=== PATIENT | female | born 1950 | race Caucasian/White ===

== ENCOUNTER 2016-03-06 11:57 | Inpatient (IN) | payer MEDICARE, OTHER ==
[~2016-03-06] VITALS: Ht 170.2 cm; Wt 127.2 kg
[~2016-03-06 11:57] MED LIST: APIX5TAB PO; ATOR40TA68 PO; BUME2TAB18 PO; DILT240C79 PO; GLIM4TAB PO; LACTINEX PO; LANT3I SC; LEVO750T25 PO; METF-388 PO; NOVO3I SC; SPIR25TA76 PO
[2016-03-06] MEDS ORDERED: LEVOFLOXACIN 500MG/D5W (PMX) 100 ML IV STA (12:11)
[2016-03-06] MEDS ORDERED: DILTIAZEM 25 MG INJ IV ONE (12:30)
[2016-03-06] MEDS ORDERED: ENOXAPARIN 100 MG/ML SYG SC ONE (12:30)
--- NOTE | 2016-03-06 12:40 | RADRPT ---
PROCEDURE: Chest x-ray CLINICAL INDICATION: Chest pain TECHNIQUE: Chest single view COMPARISON: 03/02/2016 FINDINGS: There is stable moderate cardiomegaly and atherosclerotic aortic calcification. Ongoing CHF is iden tified. There is moderate left pleural effusion with associated left lower lung consolidation and v olume loss. Small right pleural effusion is also seen. IMPRESSION: 1. Cardiomegaly with ongoing mild to moderate CHF and bilateral pleural effusions left greater than right. 2. Associated lower lobe compressive atelectasis and volume loss RPTAT: HH .Jace Everett MD, MD Date Time Electronically viewed and signed by .Jace Everett MD, MD on 03/06/2016 12:39 .W/
[2016-03-06] MEDS: DILTIAZEM-D5W 125MG/125ML DRIP 125 ML IV SCH ×2 (12:42→22:45)
[2016-03-06 12:54] LABS: BASOPHILS % 0.3 % (0.0-2.0); EOSINOPHILS # 0.1 10^3/ul (0.0-0.5); EOSINOPHILS % 0.5 % (0.0-7.0); HEMATOCRIT 35.6 % (37.0-47.0); HEMOGLOBIN 11.3 g/dl (12.0-16.0); LYMPHOCYTES # 0.8 10^3/ul (0.8-2.9); LYMPHOCYTES % 6.2 % (15.0-51.0); MEAN CORPUSCULAR HEMOGLOBIN 28.6 pg (29.0-33.0); MEAN CORPUSCULAR HGB CONC 31.6 g/dl (32.0-37.0); MEAN CORPUSCULAR VOLUME 90.3 fl (82.0-101.0); MEAN PLATELET VOLUME 8.3 fl (7.4-10.4); MONOCYTE # 0.6 10^3/ul (0.3-0.9); MONOCYTES % 4.6 % (0.0-11.0); NEUTROPHIL # 11.4 10^3/ul (1.6-7.5); NEUTROPHILS % 88.4 % (39.0-77.0); PLATELET COUNT 330 10^3/UL (140-440); RED BLOOD COUNT 3.94 10^6/ul (4.20-5.40); RED CELL DISTRIBUTION WIDTH 19.7 % (11.5-14.5); UNCORRECTED WBC 12.9 10^3/ul (4.8-10.8); WHITE BLOOD COUNT 12.9 10^3/ul (4.8-10.8)
[2016-03-06 13:01] LABS: INR 1.17; PT RATIO 1.2
[2016-03-06 13:02] LABS: ALBUMIN 3.6 g/dl (3.3-4.9); CHLORIDE 90 mmol/L (97-110); PARTIAL THROMBOPLASTIN TIME 33.9 Sec (25.0-35.0)
[2016-03-06 13:03] LABS: SODIUM 136 mmol/L (135-144)
[2016-03-06 13:04] LABS: CONDITION 1; LH ANALYZER COMMENTS 1
[2016-03-06 13:05] LABS: ALBUMIN/GLOBULIN RATIO 1.24; ALKALINE PHOSPHATASE 233 IU/L (42-121); ANION GAP 14 (8-16); ASPARTATE AMINO TRANSFERASE 40 IU/L (15-46); BILIRUBIN,INDIRECT 0.2 mg/dl (0-1.1); BILIRUBIN,TOTAL 0.2 mg/dl (0.2-1.3); CARBON DIOXIDE 38 mmol/L (21-31); CREATININE 0.72 mg/dl (0.44-1.00); TOTAL PROTEIN 6.5 g/dl (6.1-8.1)
[2016-03-06 13:06] LABS: ALANINE AMINOTRANSFERASE 64 IU/L (13-69); BLOOD UREA NITROGEN 20 mg/dl (7-20); CALCIUM 8.7 mg/dl (8.4-10.2); GLUCOSE 339 mg/dl (70-220)
[2016-03-06 13:13] LABS: B-TYPE NATRIURETIC PEPTIDE 2220 PG/ML (0-125)
[2016-03-06 13:17] LABS: TROPONIN-I < 0.012 ng/ml (0.00-0.12)
[2016-03-06] MEDS ORDERED: FURO20TA3 PO (13:28)
[2016-03-06] MEDS ORDERED: INSULIN REGULAR, HUMAN 100 UNIT/1 ML 3ML VIAL IV STA (14:22)
[2016-03-06] MEDS ORDERED: NA POLYST SULFON 15 GM/60 ML BTL PO STA (14:22)
[2016-03-06] MEDS ORDERED: NA BICARBONATE 8.4% 50 ML SYG IV STA (14:22)
[2016-03-06] MEDS ORDERED: DEXTROSE 50% 50 ML SYRINGE IV PRN ×2 (14:30)
[2016-03-06] MEDS ORDERED: GLUCOSE GEL 15 GRAM TUBE BUCCAL PRN (14:30)
[2016-03-06] MEDS ORDERED: GLUCAGON 1 MG INJ IM PRN (14:30)
[2016-03-06] MEDS ORDERED: GLUCOSE GEL 15 GRAM TUBE PO PRN ×2 (14:30)
--- NOTE | 2016-03-06 14:31 | ERA ---
ER Documentation Chief Complaint Date/Time DATE: 03/06/16 TIME: 14:21 Chief Complaint SOB SINCE LAST NIGHT GETTING WORSE TODAY. MOD DISTRESS. NO CP HPI This is a 65-year-old female who complains of gradual worsening of shortness of breath over the past 3 days. She says last night and in the middle of the night it got much worse. She says she had discharge in the hospital here 3 days ago for congestive heart failure and COPD. Patient is having no chest pain , fever or cough. No abdominal pain nausea vomiting diarrhea. She says she is having some dyspnea on exertion and cannot lay flat. She says that she has home oxygen and has been using it was not helping. ROS All systems reviewed and are negative except as per history of present illness. Medications Home Meds Active Scripts Diltiazem Hcl* (Cardizem CD*) 240 Mg Cap.sr.24h, 240 MG PO DAILY for 60 Days, # 60 CAP 2 Refills Prov:JOB MG 01/02/16 Apixaban* (Eliquis*) 5 Mg Tablet, 5 MG PO BID for 60 Days, TAB 3 Refills Prov:JOB MG 01/02/16 Reported Medications Furosemide* (Furosemide*) 20 Mg Tablet, 20 MG PO QAM, #60 TAB 03/06/16 Glimepiride* (Glimepiride*) 4 Mg Tablet, 4 MG PO WITH BREAKFAST, TAB 08/19/15 Metformin Hcl* (Metformin Hcl*) 1,000 Mg Tablet, 1000 MG PO WITH BREAKFAST DINNE , #30 TAB 08/19/15 Atorvastatin* (Atorvastatin*) 40 Mg Tablet, 40 MG PO HS, TAB 08/28/14 Discontinued Reported Medications Furosemide (Lasix) 20 Mg Tab, 20 MG PO DAILY, TAB 12/30/15 Discontinued Scripts Lactobacillus Acidophilus* (Lactinex*) 1 Tab Chew, 1 TAB PO BID for 7 Days, TAB Prov:BIBI TSANG 03/02/16 Insulin Glargine* (Lantus*) 100 Unit/Ml Soln, 16 UNIT SC QHS for 30 Days Prov:BIBI TSANG 03/02/16 Levofloxacin* (Levaquin*) 750 Mg Tablet, 750 MG PO DAILY for 7 Days, TAB Prov:BIBI TSANG 03/02/16 Bumetanide* (Bumetanide*) 2 Mg Tablet, 1 MG PO BID for 30 Days, TAB 1 Refill Prov:BIBI TSANG 03/02/16 Insulin Aspart* (Novolog Insulin Pen*) 100 Unit/Ml Soln, 0 UNIT SC WITH MEALS BEDTIME, #1 Prov:KELLY LANDERS PRESS SETTER 12/08/15 Spironolactone* (Aldactone*) 25 Mg Tab, 12.5 MG PO BID for 30 Days Prov:KELLY LANDERS PRESS SETTER 09/03/14 Allergies Allergies: Coded Allergies: No Known Allergies (Verified Allergy, Unknown, 03/06/16) PMhx/Soc History of Surgery: No Anesthesia Reaction: No Hx 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 Disorder: No Hx Respiratory Disorders: Yes (COPD) Hx Cardiac Disorders: Yes (CHF) Hx Psychiatric Problems: No Hx Miscellaneous Medical Probl: Yes (afib,PNA,obesity,DM) Hx Alcohol Use: Yes (occasionaly) Hx Substance Use: No Hx Tobacco Use: No Smoking Status: Never smoker FmHx Family History: No coronary disease Physical Exam Vitals Vital Signs Date Time Temp Pulse Resp B/P Pulse Ox O2 Delivery O2 Flow Rate FiO2 03/06/16 13:43 74 18 106/73 90 Nasal Cannula 5.0 03/06/16 13:40 Nasal Cannula 5 03/06/16 13:40 Nasal Cannula 5.0 03/06/16 11:59 128 26 138/100 90 Physical Exam Const: Well-developed, well-nourished Head: Atraumatic, normocephalic Eyes: Normal Conjunctiva, PERRLA, EOMI, normal sclera, no nystagmus ENT: Normal External Ears, Nose and Mouth, moist mucus membranes. Neck: Full range of motion. No meningismus, no lymphadenopathy. Resp: No increased work of breathing bilateral decreased breath sounds in both bases with diffuse bibasilar and midlung crackles Cardio: Tachycardia heart rate 144 irregular irregular rhythm no murmurs , S1 S2 present Abd: Soft, non tender x 4, non distended. Normal bowel sounds, no guarding or rebound, no pulsitile abdominal masses or bruits Skin: No petechiae or rashes, no ecchymosis , no maculopapular rash Back: No midline or flank tenderness Ext: No cyanosis, or edema, FROM x 4, normal inspection, neurovascularly intact x 4 Neur: Awake and alert, STR 5/5 x 4, sensation intact x 4, no focal findings, cerebellum intact Psych: Normal Mood and Affect Result Diagram: 03/06/16 1225 03/06/16 1225 Results 24 hrs Laboratory Tests Test 03/06/16 12:25 Activated Partial Thromboplast Time 33.9Sec Alanine Aminotransferase (ALT/SGPT) 64IU/L Albumin 3.6g/dl Albumin/Globulin Ratio 1.24 Alkaline Phosphatase 233IU/L Anion Gap 14 Aspartate Amino Transf (AST/SGOT) 40IU/L B-Type Natriuretic Peptide 2220PG/ML Basophils # 0.010^3/ul Basophils % 0.3% Blood Morphology Comment Blood Urea Nitrogen 20mg/dl Calcium Level 8.7mg/dl Carbon Dioxide Level 38mmol/L Chloride Level 90mmol/L Creatinine 0.72mg/dl Direct Bilirubin 0.00mg/dl Eosinophils # 0.110^3/ul Eosinophils % 0.5% Globulin 2.90g/dl Glucose Level 339mg/dl Hematocrit 35.6% Hemoglobin 11.3g/dl INR International Normalized Ratio 1.17 Indirect Bilirubin 0.2mg/dl Lymphocytes # 0.810^3/ul Lymphocytes % 6.2% Mean Corpuscular Hemoglobin 28.6pg Mean Corpuscular Hemoglobin Concent 31.6g/dl Mean Corpuscular Volume 90.3fl Mean Platelet Volume 8.3fl Monocytes # 0.610^3/ul Monocytes % 4.6% Neutrophils # 11.410^3/ul Neutrophils % 88.4% Nucleated Red Blood Cells # 0.010^3/ul Nucleated Red Blood Cells % 0.0/100WBC Platelet Count 88755^3/UL Potassium Level 6.0mmol/L Prothrombin Time 15.0Sec Prothrombin Time Ratio 1.2 Red Blood Count 3.9410^6/ul Red Cell Distribution Width 19.7% Sodium Level 136mmol/L Total Bilirubin 0.2mg/dl Total Protein 6.5g/dl Troponin I < 0.012ng/ml White Blood Count 12.910^3/ul Current Medications Medications (Trade) Dose Ordered Sig/Westley Route PRN Reason Start Time Stop Time Status Last Admin Dose Admin Enoxaparin Sodium 130 mg 130 mg ONCE ONCE SC 03/06/16 12:30 12/18/16 12:31 DC 03/06/16 12:24 Levofloxacin/ Dextrose (Levaquin 500mg/ D5W 100 ml (Pmx)) 100 ml @ 100 mls/hr ONCE STAT IV 03/06/16 12:11 03/06/16 13:10 DC 03/06/16 13:14 Diltiazem HCl 20 mg 20 mg ONCE ONCE IV 03/06/16 12:30 03/06/16 12:31 DC 03/06/16 12:21 Diltiazem HCl (Cardizem-D5W 125 Mg/125 ml Drip) 125 ml @ 0 mls/hr Q0M IV 03/06/16 12:30 03/06/16 12:42 Procedures/MDM PROCEDURE: Chest x-ray CLINICAL INDICATION: Chest pain TECHNIQUE: Chest single view COMPARISON: 03/02/2016 FINDINGS: There is stable moderate cardiomegaly and atherosclerotic aortic calcification. Ongoing CHF is identified. There is moderate left pleural effusion with associated left lower lung consolidation and volume loss. Small right pleural effusion is also seen. IMPRESSION: 1. Cardiomegaly with ongoing mild to moderate CHF and bilateral pleural effusions left greater than right. 2. Associated lower lobe compressive atelectasis and volume loss RPTAT: HH .Jace Everett MD, Date Time Electronically viewed and signed by .Jace Everett MD, on 03/06/2016 12:39 .W/ CC: RALF MURPHY DO EKG: Rate/Rhythm: Atrial fibrillation with rapid ventricular response heart rate is 123 QRS, ST, QT: , QRS, QT] Impression: A. fib with RVR Patient was given Lovenox, Cardizem drip and Cardizem bolus. We will also give Lasix to diurese. Critical Care: Time: 30 minutes Treatments/Evaluations: Close monitoring and treatment of unstable vital signs, cardiorespiratory, and neurologic status, while maintaining tight balance of fluid, respiratory, and cardiac interventions. Patient's heart failure symptoms is concerning for acute decompensation and will require inpatient workup and monitoring. Further w/u for ischemia, arrhythmia, PE or dissection will be deferred to the inpatient team. Accepting Care Team: Current data and ongoing care discussed. Time: Time of admission Primary Provider: cornelius Consulting: [ED] Outstanding Data: none Departure Diagnosis: Primary Impression: Atrial fibrillation with rapid ventricular response Additional Impression: Congestive heart failure Qualified Code: I50.9 - Acute on chronic congestive heart failure, unspecified congestive heart failure type Condition: Stable RALF MURPHY DO Mar 06, 2016 14:31
[2016-03-06] MEDS ORDERED: FUROSEMIDE 40 MG INJ IV ONE (15:00)
[2016-03-06] MEDS ORDERED: ONDANSETRON 4 MG INJ IV PRN (15:30)
[2016-03-06] MEDS ORDERED: ACETAMINOPHEN 325 MG TAB PO PRN (15:30)
[2016-03-06] MEDS ORDERED: HYPOGLYCEMIA PROTOCOL when Glucose is <70 mg/dL or symptomatic <90 mg/dL. XX ONE (18:30)
[2016-03-06] MEDS ORDERED: VANCOMYCIN IV PER PHARMACY XX SCH (18:30)
[2016-03-06] MEDS ORDERED: Discontinue Glyburide, Glipizide, and/or Glimepiride prior to starting Insulin XX ONE (18:30)
[2016-03-06] MEDS ORDERED: SOD CHLORIDE 0.9% 100 ML ONE (18:51)
[2016-03-06] MEDS ORDERED: IODIXANOL LOCM 100 ML BTL ONE (18:51)
[2016-03-06] MEDS ORDERED: ALBUTEROL 0.5% (NEB) 2.5 MG/0.5 ML AMP INH STA (19:03)
[2016-03-06] MEDS: DILTIAZEM (CD) 240 MG CAP PO SCH (19:56)
[2016-03-06] MEDS: ALBUTEROL/IPRATROPIUM (NEB) 3 ML AMP HHN SCH (21:00)
[2016-03-06] MEDS: INSULIN ASPART [NOVOLOG] 3 ML PEN SC SCH (21:00)
[2016-03-06] MEDS ORDERED: LIDOCAINE 1% (MDV) 20 ML INJ SC ONE (21:00)
[2016-03-06 22:25] VITALS: TEMP 98.6
[2016-03-06] MEDS: APIXABAN 5 MG TABLET PO SCH (22:32)
[2016-03-06] MEDS: SALMETEROL/FLUTICASONE 250/50 INHA INH SCH (22:32)
[2016-03-06] MEDS: ATORVASTATIN 40 MG TAB PO SCH (22:32)
[2016-03-06] MEDS: CEFEPIME 1GM/50 ML (PMX) 50 ML IVPB SCH (22:35)
[2016-03-06] MEDS: INSULIN GLARGINE [LANtus] 3 ML PEN SC SCH (22:37)
--- NOTE | 2016-03-06 22:40 | RADRPT ---
PROCEDURE: Chest xray. CLINICAL INDICATION: The placement TECHNIQUE: A portable semi-erect AP view of the chest was obtained. COMPARISON: 03/06/2016 12:29 p.m. FINDINGS: There has been interval insertion of a right arm PICC which terminates in the lower superior vena ca va. The cardiomediastinal silhouette is obscured but appears grossly stable. There is diffuse inters titial pulmonary edema. Left lower lung zone airspace disease with left pleural effusion remains. IMPRESSION: Interval placement of a right arm PICC which terminates in the lower superior vena cava. Diffuse interstitial pulmonary edema. Left lower lung zone airspace disease with left pleural effusion. RPTAT:PP .Cinthya Ramachandran MD, MD Date Time Electronically viewed and signed by .Cinthya Ramachandran MD, on 03/06/2016 22:39 .K/
[2016-03-06 22:53] LABS: CK-MB 0.78 ng/ml (0.0-2.4); CREATINE KINASE 39 IU/L (23-200); TROPONIN-I < 0.012 ng/ml (0.00-0.12)
[2016-03-06] MEDS ORDERED: VANCOMYCIN 2 GM in SOD CHLORIDE 0.9% 500 ML IVPB SCH (23:00)
--- NOTE | 2016-03-06 23:37 | HP ---
DATE OF ADMISSION: 03/06/2016 PRESENTING COMPLAINT: Shortness of breath unresponsive to home oxygen. HISTORY OF PRESENTING COMPLAINT: Ms. Yip is a 65-year-old obese female known to me. I have recen tltari discharged her from the hospital because of similar symptoms, but now has a chronic history of C OPD, congestive heart failure, diastolic; and obesity hypoventilation syndrome as well as chronic re spiratory failure for which she is on home oxygen at 4 L a minute. She was just seen here, diuresed aggressively. She does have a history of atrial fibrillation and, at the time, she was rate contro lled and discharged home in stable condition. At time of discharge, she was requiring less oxygen t hat she uses at home. However, she tells me that there has been compliance with her medication, wh ich I doubt. She has been having shortness of breath over the last few days that has not responded to anything she has done. Of note is that ____ her heart rate elevated, now to the 120s. Her blood sugar is also elevated, which makes it probable that the patient has not been compliant with her me ds, despite what she says. In the ER, after evaluation, she was found to be back in atrial fibrilla tion with rapid ventricular response with hyperkalemia with a potassium of 6, and hyperglycemic with blood sugars in 300s. She was then started on Cardizem drip. She has been given bronchodilator th erapy. She has been given 1 dose of Lasix, and she feels slightly better, but she is being admitted for continued management. PAST MEDICAL HISTORY: Extensive and includes the followin. Chronic atrial fibrillation. 2. Hypertension. 3. Diabetes type 2. 4. Morbid obesity. 5. Chronic respiratory failure. 6. Left-sided pneumonia, on treatment with associated left-sided pleural effusion that was not amen able to ultrasound-guided drainage. 7. Obesity hypoventilation syndrome. 8. Chronic hypercapnia. 9. Multinodular goiter. 10. Nonobstructive gallstones. 11. Chronic obstructive pulmonary disease. 12. Dyslipidemia. 13. Congestive heart failure. MEDICATIONS: Reviewed her records and they were somewhat different from what she was just discharge d, which also lends to likelihood that she was not very compliant with her meds. Please review nurs ing notes for details. FAMILY HISTORY: Positive for hypertension, cardiac disease, and diabetes mellitus. PAST SURGICAL HISTORY: Positive for hysterectomy. ALLERGIES: NO KNOWN DRUG ALLERGIES. REVIEW OF SYSTEMS: A 12-point review of system was done. Pertinent findings are as noted in HPI. VITAL SIGNS: Reviewed and the patient at this time is requiring ____. PHYSICAL EXAMINATION: GENERAL: The patient is in mild respiratory distress, obese female, alert, and oriented x4. HEENT: Head normocephalic. Pupils equal and reactive. Mucous membranes are moist. NECK: Nontender. Goiter not very well visualized due to patient body habitus. CHEST: She does have occasional end-expiratory wheezes with reduced air entry bilaterally. CARDIOVASCULAR: Irregularly irregular rate and rhythm with mild tachycardia and systolic murmur. ABDOMEN: Obese, soft, nontender with normoactive bowel sounds. EXTREMITIES: Chronic lower extremity edema. NEUROLOGIC: No focal deficits. However, she was just very lethargic. LABORATORY VALUES: She has a leukocytosis of 12,000; hemoglobin of 11, platelets are normal, but sh e has a reduced MCH and MCHC. She has a mild neutrophilia of 88%. Chemistry: She has a potassium of 6.0, her CO2 is elevated at 38, and her blood sugar was 339. BUN, creatinine, calcium were micah l. LFTs unremarkable save for mild elevation in alkaline phosphatase. Her BNP was 2220. Troponin at noon was 0.012 within normal range. IMAGING: Chest x-ray showed cardiomegaly with mild to moderate CHF with bilateral pleural effusions , left greater than right. The last CT she had was in August 2015 at this facility. It showed pulmon marco hypertension and incidental adrenal adenoma. Goiter with multiple nodules, bibasilar atelectasi s, as well as nonobstructive gallstones. EKG showed AFib with RVR. IMPRESSION: 1. Acute shortness of breath. 2. Congestive heart failure exacerbation, diastolic. 3. Probable underlying chronic obstructive pulmonary disease exacerbation. 4. Known left-sided pneumonia with associated left-sided pleural effusion not amenable to ultrasoun d-guided thoracentesis on oral antibiotic therapy as an outpatient. 5. Atrial fibrillation with rapid ventricular response. 6. Diabetes mellitus type 2 with suboptimal control. 7. Hyperkalemia, which could be related to metformin therapy. 8. Variable noncompliance with therapy. 9. Stable multinodular goiter. 10. Nonobstructive gallstones. 11. Dyslipidemia. PLAN OF CARE: To admit patient to telemetry floor again. Her hyperkalemia has been treated in the ER with Kayexalate, insulin, and D50, and she is also receiving Lasix therapy. We will continue diu resis in house. Will continue bronchodilator therapy. We will rule out acute coronary syndrome aga in. We will also reconsult pulmonary as well as cardiology to follow the case. The patient to be s tarted on 1800 ADA calorie diet and sliding scale ____ regimen. At this time I will be completely t aking her off oral hypoglycemics and putting her on Lantus and premeal NovoLog only and will monitor her electrolytes and see how she does. I will also begin empiric antibiotics for healthcare-associ ated pneumonia. We will be obtaining a CT of her chest with intravenous contrast to further help de lineate her lung parenchyma. Current supportive care will include prophylaxis with her home Eliquis as well as Pepcid. For further interventions please review my notes in the patient's chart. Evaluation time: 50 minutes. Dictated By: BIBI TSANG MD BA/NTS Conf#: [id number] DID#: [id number]
[2016-03-07] VITALS (13 sets, daily range): BP systolic 102–131; BP diastolic 63–89; PULSE 80–155; RESP 18–22; Ht 170.2 cm; Wt 127.2 kg
[2016-03-07] MEDS ORDERED: VANCOMYCIN 2 GM in SOD CHLORIDE 0.9% 500 ML IVPB SCH ×2
--- NOTE | 2016-03-07 00:12 | RADRPT ---
PROCEDURE: CT chest with contrast. CLINICAL INDICATION: Shortness of breath TECHNIQUE: CT of the chest was performed utilizing axial images with reconstructions in sagittal a nd coronal planes following the intravenous administration of 100 cc Isovue 300 contrast. The admini stered radiation dose is CTDI 16.7 mGy, DLP 644 mGy-cm. COMPARISON: 10/05/2014 FINDINGS: Chest: There is near complete atelectasis of the left upper lobe and complete atelectasis of the left lower lobe. Small left pleural effusion is present. There is small right pleural effusion with partial atelectasis of the right lower lobe. The tracheo bronchial tree is unremarkable. There is moderate cardiomegaly with small pericardial effusion. A few scattered atherosclerotic urvashi cifications are noted in the aorta. There is a 19 mm nodule within the right thyroid lobe. No mediastinal or hilar adenopathy is identi fied. Visualized Upper abdomen: There is nodular thickening of the left adrenal gland. Osseous structures: Unremarkable. IMPRESSION: Small bilateral pleural effusions with atelectasis more prominent on the left and the right. Moderate cardiomegaly with small pericardial effusion. Right thyroid nodule. Left adrenal thickening likely due to adenomatous hyperplasia. RPTAT: HIKT .Rayray Willard MD, MD Date Time Electronically viewed and signed by .Rayray Willard MD, on 03/07/2016 00:12 .T/
[2016-03-07] MEDS: ALBUTEROL/IPRATROPIUM (NEB) 3 ML AMP HHN SCH ×6 (00:28→21:20)
[2016-03-07 01:45] LABS: CK-MB 0.78 ng/ml (0.0-2.4)
[2016-03-07 01:54] LABS: CREATINE KINASE < 20 IU/L (23-200); TROPONIN-I < 0.012 ng/ml (0.00-0.12)
[2016-03-07] MEDS: ACCUCHECK AT 2AM (Patients on SS coverage) XX SCH (02:20)
[2016-03-07] MEDS: ALBUTEROL/IPRATROPIUM (NEB) 3 ML AMP HHN PRN (03:05)
[2016-03-07] MEDS ORDERED: FUROSEMIDE 40 MG INJ IV SCH (06:00)
[2016-03-07 07:19] LABS: BASOPHILS % 0.1 % (0.0-2.0); EOSINOPHILS % 0.2 % (0.0-7.0); HEMATOCRIT 34.2 % (37.0-47.0); LYMPHOCYTES # 1.2 10^3/ul (0.8-2.9); LYMPHOCYTES % 8.2 % (15.0-51.0); MEAN CORPUSCULAR HEMOGLOBIN 28.9 pg (29.0-33.0); MEAN CORPUSCULAR HGB CONC 32.1 g/dl (32.0-37.0); MEAN CORPUSCULAR VOLUME 90.2 fl (82.0-101.0); MEAN PLATELET VOLUME 8.7 fl (7.4-10.4); MONOCYTE # 0.9 10^3/ul (0.3-0.9); MONOCYTES % 5.9 % (0.0-11.0); NEUTROPHIL # 12.5 10^3/ul (1.6-7.5); NEUTROPHILS % 85.6 % (39.0-77.0); PLATELET COUNT 300 10^3/UL (140-440); RED BLOOD COUNT 3.79 10^6/ul (4.20-5.40); RED CELL DISTRIBUTION WIDTH 20.1 % (11.5-14.5); UNCORRECTED WBC 14.6 10^3/ul (4.8-10.8); WHITE BLOOD COUNT 14.6 10^3/ul (4.8-10.8)
[2016-03-07 07:21] LABS: CONDITION 1; LH ANALYZER COMMENTS 1; SUSPECT 1
[2016-03-07 07:46] LABS: ALBUMIN 3.7 g/dl (3.3-4.9)
[2016-03-07 07:47] LABS: POTASSIUM 4.4 mmol/L (3.5-5.1)
[2016-03-07 07:49] LABS: BILIRUBIN,INDIRECT 0.2 mg/dl (0-1.1); BILIRUBIN,TOTAL 0.2 mg/dl (0.2-1.3); CREATININE 0.74 mg/dl (0.44-1.00)
[2016-03-07 07:50] LABS: ALBUMIN/GLOBULIN RATIO 1.12; CALCIUM 8.6 mg/dl (8.4-10.2)
[2016-03-07] MEDS: DILTIAZEM (CD) 240 MG CAP PO SCH (08:12)
[2016-03-07] MEDS: SALMETEROL/FLUTICASONE 250/50 INHA INH SCH ×2 (08:13→20:22)
[2016-03-07] MEDS: SPIRONOLACTONE 25 MG TAB PO SCH (08:13)
[2016-03-07] MEDS: APIXABAN 5 MG TABLET PO SCH ×2 (08:13→20:23)
[2016-03-07] MEDS: INSULIN ASPART [NOVOLOG] 3 ML PEN SC SCH ×7 (08:17→20:33)
[2016-03-07 08:20] LABS: THYROID STIMULATING HORMONE 1.29 MIU/L (0.465-4.680)
[2016-03-07] MEDS: CEFEPIME 1GM/50 ML (PMX) 50 ML IVPB SCH ×2 (08:59→20:22)
[2016-03-07] MEDS: VANCOMYCIN 1.25 GM in SOD CHLORIDE 0.9% 250 ML IVPB SCH (14:23)
--- NOTE | 2016-03-07 16:27 | PN ---
Date/Time of Note Date/Time of Note DATE: 03/07/16 TIME: 16:23 Assessment/Plan VTE Prophylaxis VTE Prophylaxis Intervention: other Lines/Catheters Urinary Cath still in place: No Assessment/Plan Chief Complaint/Hosp Course 1. Acute respiratory failure secondary to known left-sided pneumonia with associated left-sided pleural effusion not amenable to ultrasound-guided thoracentesis and hypoventilation syndrome Continue antibiotics, diuresis and supplemental oxygen 2. Atrial fibrillation with rapid ventricular response Continue diltiazem drip 3. Diabetes mellitus type 2 with suboptimal control Continue insulin 4. Hyperkalemia-resolved 5. Stable multinodular goiter. 6. Morbid obesity Continue to recommend lifestyle changes Prophylaxis: Eliquis Problems: Subjective 24 Hr Interval Summary Respiratory: shortness of breath Exam/Review of Systems Vital Signs Vitals Vital Signs Date Time Temp Pulse Resp B/P Pulse Ox O2 Delivery O2 Flow Rate FiO2 03/07/16 15:22 97.9 105 18 128/73 81 03/07/16 13:57 Nasal Cannula 6.0 03/07/16 08:44 45 Intake and Output 03/06/16 03/06/16 03/07/16 15:00 23:00 07:00 Intake Total 570 ml Balance 570 ml Exam Constitutional: alert, oriented Respiratory: clear to auscultation Cardiovascular: irregular rhythm Gastrointestinal: soft, No distended Musculoskeletal: nl extremities to inspection Results Result Diagram: 03/07/1625 03/07/16 0625 Results 24 hrs Laboratory Tests Test 03/06/16 18:49 03/06/16 21:30 03/06/16 21:57 03/07/16 00:50 Bedside Glucose 156 154 Creatine Kinase 39 < 20 L Creatine Kinase Index 2.0 Creatinine Kinase MB (Mass) 0.78 0.78 Troponin I < 0.012 < 0.012 Test 03/07/16 02:16 03/07/16 06:25 03/07/16 07:48 03/07/16 11:43 Bedside Glucose 307 H 315 H 272 H Alanine Aminotransferase (ALT/SGPT) 62 Albumin 3.7 Albumin/Globulin Ratio 1.12 Alkaline Phosphatase 216 H Anion Gap 14 Aspartate Amino Transf (AST/SGOT) 38 Basophils # 0.0 Basophils % 0.1 Blood Morphology Comment Blood Urea Nitrogen 21 H Calcium Level 8.6 Carbon Dioxide Level 36 H Chloride Level 90 L Creatinine 0.74 Direct Bilirubin 0.00 Eosinophils # 0.0 Eosinophils % 0.2 Free Thyroxine 1.15 Globulin 3.30 H Glucose Level 176 # Hematocrit 34.2 L Hemoglobin 11.0 L Indirect Bilirubin 0.2 Lymphocytes # 1.2 Lymphocytes % 8.2 L Mean Corpuscular Hemoglobin 28.9 L Mean Corpuscular Hemoglobin Concent 32.1 Mean Corpuscular Volume 90.2 Mean Platelet Volume 8.7 Monocytes # 0.9 Monocytes % 5.9 Neutrophils # 12.5 H Neutrophils % 85.6 H Nucleated Red Blood Cells # 0.0 Nucleated Red Blood Cells % 0.0 Platelet Count 300 Potassium Level 4.4 Red Blood Count 3.79 L Red Cell Distribution Width 20.1 H Sodium Level 136 Thyroid Stimulating Hormone (TSH) 1.290 Total Bilirubin 0.2 Total Protein 7.0 White Blood Count 14.6 H Medications Medications Current Medications Diltiazem HCl (Cardizem-D5W 125 Mg/125 ml Drip) 125 ml @ 0 mls/hr Q0M IV Last administered on 03/06/16at 22:45; Admin Dose 10 MLS/HR; Start 03/06/16 at 12:30 Miscellaneous Information 1 ea NOTE XX ; Start 03/06/16 at 14:30 Glucose (Glutose) 15 gm Q15M PRN PO DECREASED GLUCOSE; Start 03/06/16 at 14:30 Glucose (Glutose) 22.5 gm Q15M PRN PO DECREASED GLUCOSE; Start 03/06/16 at 14: 30 Dextrose (D50w Syringe) 25 ml Q15M PRN IV DECREASED GLUCOSE; Start 03/06/16 at 14:30 Dextrose (D50w Syringe) 50 ml Q15M PRN IV DECREASED GLUCOSE; Start 03/06/16 at 14:30 Glucagon (Glucagen) 1 mg Q15M PRN IM DECREASED GLUCOSE; Start 03/06/16 at 14: 30 Glucose (Glutose) 15 gm Q15M PRN BUCCAL DECREASED GLUCOSE; Start 03/06/16 at 14:30 Insulin Glargine (Lantus) 16 unit HS SC Last administered on 03/06/16at 22:37; Admin Dose 16 UNIT; Start 03/06/16 at 21:00 Apixaban (Eliquis) 5 mg BID PO Last administered on 03/07/16at 08:13; Admin Dose 5 MG; Start 03/06/16 at 21:00 Atorvastatin Calcium (Lipitor) 40 mg HS PO Last administered on 03/06/16at 22: 32; Admin Dose 40 MG; Start 03/06/16 at 21:00 Diltiazem HCl (Cardizem Cd) 240 mg DAILY PO Last administered on 03/07/16at 08: 12; Admin Dose 240 MG; Start 03/06/16 at 18:30 Furosemide 40 mg 40 mg DAILY@06 IV Last administered on 03/07/16at 06:12; Admin Dose 40 MG; Start 03/07/16 at 06:00 Cefepime HCl (Maxipime 1gm/50 ml (Pmx)) 50 ml @ 100 mls/hr Q12 IVPB Last administered on 03/07/16at 08:59; Admin Dose 100 MLS/HR; Start 03/06/16 at 21: 00 Spironolactone (Aldactone) 12.5 mg DAILY PO Last administered on 03/07/16at 08: 13; Admin Dose 12.5 MG; Start 03/07/16 at 09:00 Salmeterol Xinafoate/ Fluticasone (Advair 250/50 Diskus) 1 inh BID INH Last administered on 03/07/16at 08:13; Admin Dose 1 INH; Start 03/06/16 at 21:00 Diagnostic Test (Pha) 1 ea 1 ea 02 XX Last administered on 03/07/16at 02:20; Admin Dose 1 EA; Start 03/07/16 at 02:00 Vancomycin HCl/ Sodium Chloride (Vancocin/NS) 250 ml @ 83.333 mls/ hr Q12H IVPB Last administered on 03/07/16at 14:23; Admin Dose 83.333 MLS/HR; Start at 14:00 Miscellaneous Information (*Rx Drug Level Order Reminder*) VANCO TR LEVEL PRIOR... ONCE ONCE XX ; Start 03/08/16 at 13:00; Stop 03/08/16 at 13:01 JOB MG Mar 07, 2016 16:27
--- NOTE | 2016-03-07 18:17 | CONS ---
Date/Time of Note Date/Time of Note DATE: 03/07/16 TIME: 18:08 Assessment/Plan Assessment/Plan Chief Complaint/Hosp Course Acute on chronic diastolic heart failure - echocardiogram 11/14/2015 showed LVEF 55%, mild diastolic dysfunction Paroxysmal atrial fibrillation - now with rapid ventricular response Pneumonia - left pleural effusion also noted Chronic obstructive pulmonary disease exacerbation - on 4 liters home oxygen at baseline Hypertension Dyslipidemia Diabetes mellitus Hyperkalemia - resolved with treatment -Bumex 3mg drip x 1, then 1mg IV BID -wean off diltiazem drip -start on diltiazem 90mg PO Q6hr -continue spironolactone 12.5mg daily, may need to discontinue if recurrence of hyperkalemia -continue Eliquis 5mg BID -continue atorvastatin 40mg daily Problems: Consultation Date/Type/Reason Admit Date/Time Mar 06, 2016 at 15:11 Initial Consult Date Type of Consultation: Cardiology 24 HR Interval Summary Free Text/Dictation Patient discharged 03/02/2016, and now presents again with worsening shortness of breath and atrial fibrillation with rapid ventricular response. BNP 2220 and K 6.0 on presentation. Possible noncompliance or taking incorrect medications, although patient states that she had been taking her medications. Detailed Summary Additional Comments 14 point review of systems without changes. Exam/Review of Systems Vital Signs Vitals Vital Signs Date Time Temp Pulse Resp B/P Pulse Ox O2 Delivery O2 Flow Rate FiO2 03/07/16 16:59 80 22 90 Nasal Cannula 6.0 03/07/16 15:22 97.9 128/73 03/07/16 08:44 45 Intake and Output 03/06/16 03/06/16 03/07/16 15:00 23:00 07:00 Intake Total 570 ml Balance 570 ml Exam Constitutional: alert, oriented Psych: no complaints Head: atraumatic, normocephalic Respiratory: clear to auscultation, No crackles/rales Cardiovascular: No regular rate and rhythm (IRIR) Gastrointestinal: soft Extremities: normal pulses Results Result Diagram: 03/07/16 0625 03/07/16 0625 Results 24 hrs Laboratory Tests Test 03/06/16 18:49 03/06/16 21:30 03/06/16 21:57 03/07/16 00:50 Bedside Glucose 156 154 Creatine Kinase 39 < 20 L Creatine Kinase Index 2.0 Creatinine Kinase MB (Mass) 0.78 0.78 Troponin I < 0.012 < 0.012 Test 03/07/16 02:16 03/07/16 06:25 03/07/16 07:48 03/07/16 11:43 Bedside Glucose 307 H 315 H 272 H Alanine Aminotransferase (ALT/SGPT) 62 Albumin 3.7 Albumin/Globulin Ratio 1.12 Alkaline Phosphatase 216 H Anion Gap 14 Aspartate Amino Transf (AST/SGOT) 38 Basophils # 0.0 Basophils % 0.1 Blood Morphology Comment Blood Urea Nitrogen 21 H Calcium Level 8.6 Carbon Dioxide Level 36 H Chloride Level 90 L Creatinine 0.74 Direct Bilirubin 0.00 Eosinophils # 0.0 Eosinophils % 0.2 Free Thyroxine 1.15 Globulin 3.30 H Glucose Level 176 # Hematocrit 34.2 L Hemoglobin 11.0 L Indirect Bilirubin 0.2 Lymphocytes # 1.2 Lymphocytes % 8.2 L Mean Corpuscular Hemoglobin 28.9 L Mean Corpuscular Hemoglobin Concent 32.1 Mean Corpuscular Volume 90.2 Mean Platelet Volume 8.7 Monocytes # 0.9 Monocytes % 5.9 Neutrophils # 12.5 H Neutrophils % 85.6 H Nucleated Red Blood Cells # 0.0 Nucleated Red Blood Cells % 0.0 Platelet Count 300 Potassium Level 4.4 Red Blood Count 3.79 L Red Cell Distribution Width 20.1 H Sodium Level 136 Thyroid Stimulating Hormone (TSH) 1.290 Total Bilirubin 0.2 Total Protein 7.0 White Blood Count 14.6 H Test 03/07/16 16:56 Bedside Glucose 284 H Medications Medications Current Medications Diltiazem HCl (Cardizem-D5W 125 Mg/125 ml Drip) 125 ml @ 0 mls/hr Q0M IV Last administered on 03/06/16at 22:45; Admin Dose 10 MLS/HR; Start 03/06/16 at 12:30 Miscellaneous Information 1 ea NOTE XX ; Start 03/06/16 at 14:30 Glucose (Glutose) 15 gm Q15M PRN PO DECREASED GLUCOSE; Start 03/06/16 at 14:30 Glucose (Glutose) 22.5 gm Q15M PRN PO DECREASED GLUCOSE; Start 03/06/16 at 14: 30 Dextrose (D50w Syringe) 25 ml Q15M PRN IV DECREASED GLUCOSE; Start 03/06/16 at 14:30 Dextrose (D50w Syringe) 50 ml Q15M PRN IV DECREASED GLUCOSE; Start 03/06/16 at 14:30 Glucagon (Glucagen) 1 mg Q15M PRN IM DECREASED GLUCOSE; Start 03/06/16 at 14: 30 Glucose (Glutose) 15 gm Q15M PRN BUCCAL DECREASED GLUCOSE; Start 03/06/16 at 14:30 Insulin Glargine (Lantus) 16 unit HS SC Last administered on 03/06/16at 22:37; Admin Dose 16 UNIT; Start 03/06/16 at 21:00 Apixaban (Eliquis) 5 mg BID PO Last administered on 03/07/16at 08:13; Admin Dose 5 MG; Start 03/06/16 at 21:00 Atorvastatin Calcium (Lipitor) 40 mg HS PO Last administered on 03/06/16at 22: 32; Admin Dose 40 MG; Start 03/06/16 at 21:00 Diltiazem HCl (Cardizem Cd) 240 mg DAILY PO Last administered on 03/07/16at 08: 12; Admin Dose 240 MG; Start 03/06/16 at 18:30 Furosemide 40 mg 40 mg DAILY@06 IV Last administered on 03/07/16at 06:12; Admin Dose 40 MG; Start 03/07/16 at 06:00 Cefepime HCl (Maxipime 1gm/50 ml (Pmx)) 50 ml @ 100 mls/hr Q12 IVPB Last administered on 03/07/16at 08:59; Admin Dose 100 MLS/HR; Start 03/06/16 at 21: 00 Spironolactone (Aldactone) 12.5 mg DAILY PO Last administered on 03/07/16at 08: 13; Admin Dose 12.5 MG; Start 03/07/16 at 09:00 Salmeterol Xinafoate/ Fluticasone (Advair 250/50 Diskus) 1 inh BID INH Last administered on 03/07/16at 08:13; Admin Dose 1 INH; Start 03/06/16 at 21:00 Diagnostic Test (Pha) 1 ea 1 ea 02 XX Last administered on 03/07/16at 02:20; Admin Dose 1 EA; Start 03/07/16 at 02:00 Vancomycin HCl/ Sodium Chloride (Vancocin/NS) 250 ml @ 83.333 mls/ hr Q12H IVPB Last administered on 03/07/16at 14:23; Admin Dose 83.333 MLS/HR; Start at 14:00 Miscellaneous Information (*Rx Drug Level Order Reminder*) VANCO TR LEVEL PRIOR... ONCE ONCE XX ; Start 03/08/16 at 13:00; Stop 03/08/16 at 13:01 CAROLA WHALEY MD Mar 07, 2016 18:17
--- NOTE | 2016-03-07 18:21 | CONS ---
DATE OF ADMISSION: 03/06/2016 DATE OF CONSULTATION: TYPE OF CONSULTATION: Pulmonary. REASON FOR CONSULTATION: Shortness of breath. Thank you, Dr. Tsang, for this consultation. HISTORY OF PRESENT ILLNESS: This is a 65-year-old lady well known to me, seen multiple admissions t [facility], only recently discharged following episode of acute bronchitis and c ongestive cardiac failure, presents again with increasing shortness of breath, orthopnea, PND, found to have small bilateral pleural effusions and mild pulmonary edema on readmission chest CT. Denies hemoptysis, hematemesis. No nausea, no vomiting. VITAL SIGNS: Temperature was 99 and she remained hemodynamically stable on 6 liters nasal cannula. PAST MEDICAL HISTORY: 1. Diastolic dysfunction. 2. Chronic hypoxemia. 3. Obesity hypoventilation syndrome. 4. Recurrent pneumonias. 5. Type 2 diabetes. 6. Multinodular goiter. 7. Chronic obstructive pulmonary disease. MEDICATIONS: Per chart. ALLERGIES: NONE. SOCIAL HISTORY: Nonsmoker, no alcohol, no history of drug use. FAMILY HISTORY: Noncontributory. SYSTEMS REVIEW: A 12-point review of systems was negative other than that mentioned above. PHYSICAL EXAMINATION: GENERAL: Moderately obese lady, awake, alert, oriented, comfortable at rest, talking in full and co mplete sentences. VITAL SIGNS: Currently afebrile. Pulse is 100, blood pressure 128/73, O2 saturation 89% on 6 liter s nasal cannula. NECK: Supple. No JVD or lymphadenopathy. CARDIAC: S1, S2. No added sounds or murmurs. CHEST: Diminished air entry bilaterally. ABDOMEN: Soft, nontender, obese. EXTREMITIES: No cyanosis, clubbing, edema. NEUROLOGIC: Generalized weakness, but no focal deficits. LABORATORIES: White count 14.6, hemoglobin 11, platelets of 300. BUN 21, creatinine 0.74. BNP on admission was 2220. Chest x-ray was reviewed, showed diffuse interstitial pulmonary edema. Previous echocardiogram perf ormed November 13 showed preserved ejection fraction, left ventricular hypertrophy, stage I diastolic dysfunction with moderate pulmonary hypertension. IMPRESSION AND PLAN: Recurrent acute on chronic hypoxemic respiratory failure, likely secondary to worsening pulmonary edema in a patient with established left ventricular hypertrophy and diastolic d ysfunction. The patient will require: 1. Diuretics. 2. Short course of antibiotics, consider de-escalation, too, soon. 3. Supplemental O2. 4. Deep vein thrombosis and gastrointestinal prophylaxis. 5. I did discuss possibility of [facility]; however, the patient has declined. Dictated By: OSMANI LUIS MD SV/NTS Conf#: [id number] DID#: [id number] CC: BIBI TSANG MD;*EndCC*
[2016-03-07] MEDS: BUMETANIDE 3 MG in DEXTROSE 5% 18 ML IV ONE ×2 (18:35→22:41)
[2016-03-07] MEDS: ATORVASTATIN 40 MG TAB PO SCH (20:23)
[2016-03-07] MEDS: INSULIN GLARGINE [LANtus] 3 ML PEN SC SCH (20:28)
[2016-03-07] MEDS: DILTIAZEM 90 MG TAB PO SCH (20:51)
[2016-03-08] VITALS (59 sets, daily range): BP systolic 85–148; BP diastolic 47–120; PULSE 85–127; RESP 21–31
[2016-03-08] MEDS ORDERED: VANCOMYCIN 1.25 GM in SOD CHLORIDE 0.9% 250 ML IVPB SCH ×2
[2016-03-08] MEDS: DILTIAZEM 90 MG TAB PO SCH ×4 (01:10→17:48)
[2016-03-08] MEDS: ALBUTEROL/IPRATROPIUM (NEB) 3 ML AMP HHN SCH ×4 (02:15→16:35)
[2016-03-08] MEDS: ACCUCHECK AT 2AM (Patients on SS coverage) XX SCH (02:16)
[2016-03-08] MEDS ORDERED: INSULIN ASPART [NOVOLOG] 3 ML PEN SC ONE (02:30)
[2016-03-08] MEDS: ALBUTEROL/IPRATROPIUM (NEB) 3 ML AMP HHN PRN (02:35)
[2016-03-08] MEDS: VANCOMYCIN 1.25 GM in SOD CHLORIDE 0.9% 250 ML IVPB SCH ×2 (02:58→15:35)
[2016-03-08] MEDS: BUMETANIDE 1 MG INJ IV SCH ×2 (06:22→17:47)
[2016-03-08] MEDS: INSULIN ASPART [NOVOLOG] 3 ML PEN SC SCH ×3 (08:34→11:30)
[2016-03-08] MEDS: SALMETEROL/FLUTICASONE 250/50 INHA INH SCH (08:35)
[2016-03-08] MEDS: SPIRONOLACTONE 25 MG TAB PO SCH (08:35)
[2016-03-08] MEDS: APIXABAN 5 MG TABLET PO SCH (08:35)
[2016-03-08] MEDS: CEFEPIME 1GM/50 ML (PMX) 50 ML IVPB SCH ×2 (08:35→22:45)
[2016-03-08] MEDS ORDERED: PROPOFOL 100 ML ONE (09:44)
[2016-03-08] MEDS: PROPOFOL 100 ML IV SCH ×3 (10:10→22:47)
--- NOTE | 2016-03-08 10:29 | RADRPT ---
PROCEDURE: XR Chest. CLINICAL INDICATION: Respiratory failure TECHNIQUE: An AP view of the chest was obtained. COMPARISON: Chest x-ray dated 03/08/2016 at 07:56 a.m. FINDINGS: The endotracheal tube tip is approximately 4.7 cm above the toni. The tip of the enteric tube ex tends below the left diaphragm. There is a right upper extremity PICC line with tip in the mid SVC. There is prominence of the interstitial and central pulmonary vascular markings. There are small b ilateral pleural effusions. No focal airspace opacification or pneumothorax is seen. The cardiomedi astinal silhouette is mildly enlarged . Calcifications are seen within the aortic arch. The osseou s structures demonstrate senescent changes. IMPRESSION: 1. Findings suggestive of pulmonary vascular congestion/interstitial edema with bilateral pleural effusions. No significant interval change. 2. Mild cardiomegaly and aortic atherosclerosis. 3. Tubes and lines, as described above. RPTAT: HH .Judith Harper MD, MD Date Time Electronically viewed and signed by .Judith Harper MD, on 03/08/2016 10:29 .G/
[2016-03-08 10:51] LABS: AADO2 Arterial 567.7 mmHg (7.0-24.0); Allen Test ACCEPTAB; Arterial Base Excess 10.4 mmol/L (-3.0-3); Arterial COHb 0.2 % (0.0-3.0); Arterial HCO3 37.6 mmol/L (22.0-26.0); Arterial MetHb 0.2 % (0.0-1.5); Arterial Total Hemglobin 11.6 g/dl (12.0-18.0); MODE VENT - AC
--- NOTE | 2016-03-08 11:11 | RADRPT ---
PROCEDURE: XR Chest. CLINICAL INDICATION: Pneumonia/congestive heart failure TECHNIQUE: Chest AP portable. COMPARISON: 03/06/2016 FINDINGS: Right arm PICC line with tip at SVC / RA junction The mediastinal structures are unremarkable. There is calcification of the thoracic aorta (consiste nt with atherosclerosis). There is moderate cardiac enlargement. There is no change in the congest janessa heart failure. There are RLL and LLL patchy consolidations (edema/pneumonia). There are modera te bilateral pleural effusions. The osseous structures are unremarkable. IMPRESSION: Moderate cardiac enlargement. No change in congestive heart failure. RLL and LLL patchy consolidations (edema/pneumonia). No change in moderate bilateral pleural effusions. RPTAT: [facility] .Angel Lawrence MD, Date Time Electronically viewed and signed by .Angel Lawrence MD, on 03/08/2016 11:11 .B/
[2016-03-08] MEDS ORDERED: INSULIN ASPART [NOVOLOG] 3 ML PEN SC SCH (12:00)
--- NOTE | 2016-03-08 12:27 | CONS ---
Date/Time of Note Date/Time of Note DATE: 03/08/16 TIME: 12:19 Assessment/Plan Assessment/Plan Chief Complaint/Hosp Course Acute on chronic diastolic heart failure - echocardiogram 11/14/2015 showed LVEF 55%, mild diastolic dysfunction Paroxysmal atrial fibrillation - now rate controlled Acute on chronic hypoxic respiratory failure - intubated and on mechanical ventilation Pneumonia - left pleural effusion also noted Chronic obstructive pulmonary disease exacerbation - on 4 liters home oxygen at baseline Hypertension Dyslipidemia Diabetes mellitus Hyperkalemia - resolved with treatment -additional Bumex 3mg drip x 1, then continue 1mg IV BID -continue diltiazem 90mg PO/NGT Q6hr -continue spironolactone 12.5mg daily, may need to discontinue if recurrence of hyperkalemia -continue Eliquis 5mg BID -continue atorvastatin 40mg daily Problems: Consultation Date/Type/Reason Admit Date/Time Mar 06, 2016 at 15:11 Type of Consultation: Cardiology 24 HR Interval Summary Free Text/Dictation Intubated and transferred to ICU due to worsening hypoxia. Now in atrial fibrillation with ventricular rates in the 90s. Detailed Summary Additional Comments Unable to obtain, patient intubated. Exam/Review of Systems Vital Signs Vitals Vital Signs Date Time Temp Pulse Resp B/P Pulse Ox O2 Delivery O2 Flow Rate FiO2 03/08/16 10:49 116 03/08/16 10:30 24 99/65 100 Mechanical Ventilator 03/08/16 09:45 98.1 03/08/16 08:25 15.0 03/07/16 08:44 45 Intake and Output 03/07/16 03/07/16 03/08/16 15:00 23:00 07:00 Intake Total 550 ml 1268 ml 230 ml Output Total 600 ml Balance 550 ml 1268 ml -370 ml Exam Constitutional: intubated Psych: intubated Head: atraumatic, normocephalic Respiratory: clear to auscultation, No crackles/rales Cardiovascular: No regular rate and rhythm (IRIR) Gastrointestinal: soft Extremities: normal pulses Results Result Diagram: 03/07/16 0625 03/07/16 0625 Results 24 hrs Laboratory Tests Test 03/07/16 16:56 03/07/16 20:19 03/08/16 01:30 03/08/16 08:16 Bedside Glucose 284 H 330 H 365 H 393 H Test 03/08/16 10:30 Arterial Blood HCO3 37.6 H Arterial Blood Base Excess 10.4 H Arterial Blood Oxygen Saturation 96.4 Joseph Test ACCEPTAB Arterial Blood Gas Puncture Site Left Radial Arterial Blood Carboxyhemoglobin 0.2 Arterial Blood Date Drawn 03/08/2016 10:39:07 AM Arterial Blood Methemoglobin 0.2 Arterial Blood pCO2 (Temp correct) 64.8 H Arterial Blood pH (Temp corrected) 7.382 Arterial Blood pO2 (Temp corrected) 80.5 Blood Gas A-a O2 Differential 567.7 H Blood Gas Actual Respiration Rate 24 Blood Gas Low PEEP Setting 5.0 Blood Gas Modality VENT - AC Blood Gas Notified Time 03/08/2016 10:50:58 AM Blood Gas Notified Whom JLD Blood Gas Respiration Rate 24.0 Blood Gas Specimen Source Blood arterial Blood Gas Temperature 37.0 Blood Gas Tidal Volume 550.0 FiO2 100.0 Oxyhemoglobin Percent 96.0 Total Hemoglobin 11.6 L Medications Medications Current Medications Miscellaneous Information 1 ea NOTE XX ; Start 03/06/16 at 14:30 Glucose (Glutose) 15 gm Q15M PRN PO DECREASED GLUCOSE; Start 03/06/16 at 14:30 Glucose (Glutose) 22.5 gm Q15M PRN PO DECREASED GLUCOSE; Start 03/06/16 at 14: 30 Dextrose (D50w Syringe) 25 ml Q15M PRN IV DECREASED GLUCOSE; Start 03/06/16 at 14:30 Dextrose (D50w Syringe) 50 ml Q15M PRN IV DECREASED GLUCOSE; Start 03/06/16 at 14:30 Glucagon (Glucagen) 1 mg Q15M PRN IM DECREASED GLUCOSE; Start 03/06/16 at 14: 30 Glucose (Glutose) 15 gm Q15M PRN BUCCAL DECREASED GLUCOSE; Start 03/06/16 at 14:30 Insulin Glargine 16 unit 16 unit HS SC Last administered on 03/07/16at 20:28; Admin Dose 16 UNIT; Start 03/06/16 at 21:00 Cefepime HCl (Maxipime 1gm/50 ml (Pmx)) 50 ml @ 100 mls/hr Q12 IVPB Last administered on 03/08/16at 08:35; Admin Dose 100 MLS/HR; Start 03/06/16 at 21: 00 Salmeterol Xinafoate/ Fluticasone (Advair 250/50 Diskus) 1 inh BID INH Last administered on 03/08/16at 08:35; Admin Dose 1 INH; Start 03/06/16 at 21:00 Diagnostic Test (Pha) 1 ea 1 ea 02 XX Last administered on 03/08/16at 02:16; Admin Dose 1 EA; Start 03/07/16 at 02:00 Vancomycin HCl/ Sodium Chloride (Vancocin/NS) 250 ml @ 83.333 mls/ hr Q12H IVPB Last administered on 03/08/16at 02:58; Admin Dose 83.333 MLS/HR; Start at 14:00 Miscellaneous Information (*Rx Drug Level Order Reminder*) VANCO TR LEVEL PRIOR... ONCE ONCE XX ; Start 03/08/16 at 13:00; Stop 03/08/16 at 13:01 Diltiazem HCl 90 mg 90 mg Q6 PO Last administered on 03/08/16at 06:22; Admin Dose 90 MG; Start 03/07/16 at 18:30 Propofol (Diprivan) 100 ml @ 3.816 mls/ hr Q12H IV Last administered on at 11:53; Admin Dose 38.16 MLS/HR; Start 03/08/16 at 10:00 Insulin Aspart (Novolog Insulin Pen) NOVOLOG *MODERATE* ALGORITHM Q6 SC ; Start 03/08/16 at 12:00 Apixaban (Eliquis) 5 mg BID NGT ; Start 03/08/16 at 10:50 Atorvastatin Calcium (Lipitor) 40 mg HS NGT ; Start 03/08/16 at 10:50 Spironolactone (Aldactone) 12.5 mg DAILY NGT ; Start 03/08/16 at 10:51 CAROLA WHALEY MD Mar 08, 2016 12:27
[2016-03-08] MEDS ORDERED: BUMETANIDE 3 MG in DEXTROSE 5% 18 ML IV ONE (13:30)
[2016-03-08 13:35] LABS: BASOPHIL # 0.1 10^3/ul (0.0-0.1); BASOPHILS % 0.6 % (0.0-2.0); EOSINOPHILS % 0.1 % (0.0-7.0); HEMATOCRIT 31.9 % (37.0-47.0); HEMOGLOBIN 10.2 g/dl (12.0-16.0); LYMPHOCYTES % 7.1 % (15.0-51.0); MEAN CORPUSCULAR HEMOGLOBIN 28.6 pg (29.0-33.0); MEAN CORPUSCULAR VOLUME 89.3 fl (82.0-101.0); MEAN PLATELET VOLUME 7.4 fl (7.4-10.4); MONOCYTE # 0.8 10^3/ul (0.3-0.9); MONOCYTES % 5.6 % (0.0-11.0); NEUTROPHIL # 12.3 10^3/ul (1.6-7.5); NEUTROPHILS % 86.6 % (39.0-77.0); PLATELET COUNT 357 10^3/UL (140-440); RED BLOOD COUNT 3.57 10^6/ul (4.20-5.40); RED CELL DISTRIBUTION WIDTH 19.3 % (11.5-14.5); UNCORRECTED WBC 14.2 10^3/ul (4.8-10.8); WHITE BLOOD COUNT 14.2 10^3/ul (4.8-10.8)
[2016-03-08 13:39] LABS: CONDITION 1; LH ANALYZER COMMENTS 1
[2016-03-08 13:45] LABS: ALBUMIN 3.5 g/dl (3.3-4.9)
[2016-03-08 13:46] LABS: POTASSIUM 4.5 mmol/L (3.5-5.1)
[2016-03-08 13:48] LABS: ALBUMIN/GLOBULIN RATIO 1.09; BILIRUBIN,INDIRECT 0.3 mg/dl (0-1.1); BILIRUBIN,TOTAL 0.3 mg/dl (0.2-1.3); CREATININE 0.84 mg/dl (0.44-1.00); TOTAL PROTEIN 6.7 g/dl (6.1-8.1)
[2016-03-08 13:49] LABS: CALCIUM 8.3 mg/dl (8.4-10.2)
--- NOTE | 2016-03-08 15:06 | PN ---
Date/Time of Note Date/Time of Note DATE: 03/08/16 TIME: 14:58 Assessment/Plan VTE Prophylaxis VTE Prophylaxis Intervention: other Lines/Catheters IV Catheter Type (from Nrs): Mid Line Urinary Cath still in place: No Assessment/Plan Chief Complaint/Hosp Course 1. Acute respiratory failure secondary to known left-sided pneumonia with associated left-sided pleural effusion and hypoventilation syndrome Intubated this morning, pulmonology following Continue antibiotics, diuresis with Bumex drip 2. Atrial fibrillation with rapid ventricular response Continue diltiazem if blood pressure tolerates 3. Diabetes mellitus type 0-dip-rn-control Start insulin drip 4. Hyperkalemia-resolved 5. Stable multinodular goiter. 6. Morbid obesity Continue to recommend lifestyle changes Prophylaxis: Eliquis Problems: Subjective 24 Hr Interval Summary Subjective hx not possible: pt non-verbal Exam/Review of Systems Vital Signs Vitals Vital Signs Date Time Temp Pulse Resp B/P Pulse Ox O2 Delivery O2 Flow Rate FiO2 03/08/16 13:30 99 24 93/68 95 Mechanical Ventilator 03/08/16 12:00 99.2 03/08/16 10:00 100 03/08/16 08:25 15.0 Intake and Output 03/07/16 03/07/16 03/08/16 15:00 23:00 07:00 Intake Total 550 ml 1268 ml 230 ml Output Total 600 ml Balance 550 ml 1268 ml -370 ml Exam Constitutional: non-verbal ENMT: intubated Respiratory: clear to auscultation Cardiovascular: regular rate and rhythm Gastrointestinal: soft, No distended Musculoskeletal: nl extremities to inspection Results Result Diagram: 03/08/16 1320 03/08/16 1320 Results 24 hrs Laboratory Tests Test 03/07/16 16:56 03/07/16 20:19 03/08/16 01:30 03/08/16 08:16 Bedside Glucose 284 H 330 H 365 H 393 H Test 03/08/16 10:30 03/08/16 12:46 03/08/16 13:20 Arterial Blood HCO3 37.6 H Arterial Blood Base Excess 10.4 H Arterial Blood Oxygen Saturation 96.4 Joseph Test ACCEPTAB Arterial Blood Gas Puncture Site Left Radial Arterial Blood Carboxyhemoglobin 0.2 Arterial Blood Date Drawn 03/08/2016 10:39:07 AM Arterial Blood Methemoglobin 0.2 Arterial Blood pCO2 (Temp correct) 64.8 H Arterial Blood pH (Temp corrected) 7.382 Arterial Blood pO2 (Temp corrected) 80.5 Blood Gas A-a O2 Differential 567.7 H Blood Gas Actual Respiration Rate 24 Blood Gas Low PEEP Setting 5.0 Blood Gas Modality VENT - AC Blood Gas Notified Time 03/08/2016 10:50:58 AM Blood Gas Notified Whom JLD Blood Gas Respiration Rate 24.0 Blood Gas Specimen Source Blood arterial Blood Gas Temperature 37.0 Blood Gas Tidal Volume 550.0 FiO2 100.0 Oxyhemoglobin Percent 96.0 Total Hemoglobin 11.6 L Bedside Glucose 348 H Alanine Aminotransferase (ALT/SGPT) 59 Albumin 3.5 Albumin/Globulin Ratio 1.09 Alkaline Phosphatase 191 H Anion Gap 10 Aspartate Amino Transf (AST/SGOT) 28 Basophils # 0.1 Basophils % 0.6 Blood Morphology Comment Blood Urea Nitrogen 25 H Calcium Level 8.3 L Carbon Dioxide Level 40 H Chloride Level 85 L Creatinine 0.84 Direct Bilirubin 0.00 Eosinophils # 0.0 Eosinophils % 0.1 Globulin 3.20 Glucose Level 303 H Hematocrit 31.9 L Hemoglobin 10.2 L Indirect Bilirubin 0.3 Lymphocytes # 1.0 Lymphocytes % 7.1 L Magnesium Level 1.8 Mean Corpuscular Hemoglobin 28.6 L Mean Corpuscular Hemoglobin Concent 32.0 Mean Corpuscular Volume 89.3 Mean Platelet Volume 7.4 Monocytes # 0.8 Monocytes % 5.6 Neutrophils # 12.3 H Neutrophils % 86.6 H Nucleated Red Blood Cells # 0.0 Nucleated Red Blood Cells % 0.0 Platelet Count 357 Potassium Level 4.5 Red Blood Count 3.57 L Red Cell Distribution Width 19.3 H Sodium Level 130 L Total Bilirubin 0.3 Total Protein 6.7 Vancomycin Level Trough 16.9 White Blood Count 14.2 H Medications Medications Current Medications Miscellaneous Information 1 ea NOTE XX ; Start 03/06/16 at 14:30 Glucose (Glutose) 15 gm Q15M PRN PO DECREASED GLUCOSE; Start 03/06/16 at 14:30 Glucose (Glutose) 22.5 gm Q15M PRN PO DECREASED GLUCOSE; Start 03/06/16 at 14: 30 Dextrose (D50w Syringe) 25 ml Q15M PRN IV DECREASED GLUCOSE; Start 03/06/16 at 14:30 Dextrose (D50w Syringe) 50 ml Q15M PRN IV DECREASED GLUCOSE; Start 03/06/16 at 14:30 Glucagon (Glucagen) 1 mg Q15M PRN IM DECREASED GLUCOSE; Start 03/06/16 at 14: 30 Glucose (Glutose) 15 gm Q15M PRN BUCCAL DECREASED GLUCOSE; Start 03/06/16 at 14:30 Insulin Glargine 16 unit 16 unit HS SC Last administered on 03/07/16at 20:28; Admin Dose 16 UNIT; Start 03/06/16 at 21:00 Cefepime HCl (Maxipime 1gm/50 ml (Pmx)) 50 ml @ 100 mls/hr Q12 IVPB Last administered on 03/08/16at 08:35; Admin Dose 100 MLS/HR; Start 03/06/16 at 21: 00 Salmeterol Xinafoate/ Fluticasone (Advair 250/50 Diskus) 1 inh BID INH Last administered on 03/08/16at 08:35; Admin Dose 1 INH; Start 03/06/16 at 21:00 Diagnostic Test (Pha) 1 ea 1 ea 02 XX Last administered on 03/08/16at 02:16; Admin Dose 1 EA; Start 03/07/16 at 02:00 Vancomycin HCl/ Sodium Chloride (Vancocin/NS) 250 ml @ 83.333 mls/ hr Q12H IVPB Last administered on 03/08/16at 02:58; Admin Dose 83.333 MLS/HR; Start at 14:00; Stop 03/08/16 at 18:00 Diltiazem HCl 90 mg 90 mg Q6 PO Last administered on 03/08/16at 06:22; Admin Dose 90 MG; Start 03/07/16 at 18:30 Propofol (Diprivan) 100 ml @ 3.816 mls/ hr Q12H IV Last administered on at 11:53; Admin Dose 38.16 MLS/HR; Start 03/08/16 at 10:00 Insulin Aspart (Novolog Insulin Pen) NOVOLOG *MODERATE* ALGORITHM Q6 SC Last administered on 03/08/16at 12:51; Admin Dose 10 UNIT; Start 03/08/16 at 12:00 Apixaban (Eliquis) 5 mg BID NGT ; Start 03/08/16 at 10:50 Atorvastatin Calcium (Lipitor) 40 mg HS NGT ; Start 03/08/16 at 10:50 Spironolactone 12.5 mg 12.5 mg DAILY NGT ; Start 03/08/16 at 10:51 Bumetanide 3 mg/ Dextrose 30 ml @ 16.667 mls/ hr Q1H48M ONCE IV Last administered on 03/08/16at 13:49; Admin Dose 16.667 MLS/HR; Start 03/08/16 at 13:30; Stop 03/08/16 at 15:17 Vancomycin HCl (Vancocin) 250 ml @ 125 mls/hr Q12H IVPB ; Start 03/09/16 at 03 :00 JOB MG Mar 08, 2016 15:06
[2016-03-08] MEDS ORDERED: Treatment of Hypoglycemia: XX SCH (15:30)
[2016-03-08] MEDS ORDERED: INSULIN REGULAR, HUMAN 100 UNIT in SOD CHLORIDE 0.9% 99 ML IV SCH ×2 (15:30)
[2016-03-08] MEDS: ACCUCHECK XX SCH ×9 (15:30→23:44)
[2016-03-08] MEDS ORDERED: DEXTROSE 50% 50 ML SYRINGE IV PRN ×2 (15:30)
--- NOTE | 2016-03-08 16:40 | CONS ---
Date/Time of Note Date/Time of Note DATE: 03/08/16 TIME: 16:27 Consult Date/Type/Reason Admit Date/Time Mar 06, 2016 at 15:11 Initial Consult Date Type of Consultation: pulmonary Subjective The patient developed respiratory distress this morning was unresponsive on telemetry Transferred down to intensive care unit for emergent intubation Patient was emergently intubated by myself Objective Vital Signs Date Time Temp Pulse Resp B/P Pulse Ox O2 Delivery O2 Flow Rate FiO2 03/08/16 13:30 99 24 93/68 95 Mechanical Ventilator 03/08/16 12:00 99.2 03/08/16 10:00 100 03/08/16 08:25 15.0 Intake and Output 03/07/16 03/07/16 03/08/16 15:00 23:00 07:00 Intake Total 550 ml 1268 ml 230 ml Output Total 600 ml Balance 550 ml 1268 ml -370 ml PHYSICAL EXAMINATION: GENERAL: Moderately obese lady, now intubated on mechanical ventilation appears comfortable at rest VITAL SIGNS: NECK: Supple. No JVD or lymphadenopathy. CARDIAC: S1, S2. No added sounds or murmurs. CHEST: Diminished air entry bilaterally. ABDOMEN: Soft, nontender, obese. EXTREMITIES: No cyanosis, clubbing, edema +2 NEUROLOGIC: Generalized weakness, unable to assess Results/Medications Result Diagram: 03/08/16 1320 03/08/16 1320 Results 24 hrs Laboratory Tests Test 03/07/16 16:56 03/07/16 20:19 03/08/16 01:30 03/08/16 08:16 Bedside Glucose 284 H 330 H 365 H 393 H Test 03/08/16 10:30 03/08/16 12:46 03/08/16 13:20 03/08/16 16:06 Arterial Blood HCO3 37.6 H Arterial Blood Base Excess 10.4 H Arterial Blood Oxygen Saturation 96.4 Joseph Test ACCEPTAB Arterial Blood Gas Puncture Site Left Radial Arterial Blood Carboxyhemoglobin 0.2 Arterial Blood Date Drawn 03/08/2016 10:39:07 AM Arterial Blood Methemoglobin 0.2 Arterial Blood pCO2 (Temp correct) 64.8 H Arterial Blood pH (Temp corrected) 7.382 Arterial Blood pO2 (Temp corrected) 80.5 Blood Gas A-a O2 Differential 567.7 H Blood Gas Actual Respiration Rate 24 Blood Gas Low PEEP Setting 5.0 Blood Gas Modality VENT - AC Blood Gas Notified Time 03/08/2016 10:50:58 AM Blood Gas Notified Whom JLD Blood Gas Respiration Rate 24.0 Blood Gas Specimen Source Blood arterial Blood Gas Temperature 37.0 Blood Gas Tidal Volume 550.0 FiO2 100.0 Oxyhemoglobin Percent 96.0 Total Hemoglobin 11.6 L Bedside Glucose 348 H 249 H Alanine Aminotransferase (ALT/SGPT) 59 Albumin 3.5 Albumin/Globulin Ratio 1.09 Alkaline Phosphatase 191 H Anion Gap 10 Aspartate Amino Transf (AST/SGOT) 28 Basophils # 0.1 Basophils % 0.6 Blood Morphology Comment Blood Urea Nitrogen 25 H Calcium Level 8.3 L Carbon Dioxide Level 40 H Chloride Level 85 L Creatinine 0.84 Direct Bilirubin 0.00 Eosinophils # 0.0 Eosinophils % 0.1 Globulin 3.20 Glucose Level 303 H Hematocrit 31.9 L Hemoglobin 10.2 L Indirect Bilirubin 0.3 Lymphocytes # 1.0 Lymphocytes % 7.1 L Magnesium Level 1.8 Mean Corpuscular Hemoglobin 28.6 L Mean Corpuscular Hemoglobin Concent 32.0 Mean Corpuscular Volume 89.3 Mean Platelet Volume 7.4 Monocytes # 0.8 Monocytes % 5.6 Neutrophils # 12.3 H Neutrophils % 86.6 H Nucleated Red Blood Cells # 0.0 Nucleated Red Blood Cells % 0.0 Platelet Count 357 Potassium Level 4.5 Red Blood Count 3.57 L Red Cell Distribution Width 19.3 H Sodium Level 130 L Total Bilirubin 0.3 Total Protein 6.7 Vancomycin Level Trough 16.9 White Blood Count 14.2 H Medications Current Medications Miscellaneous Information 1 ea NOTE XX ; Start 03/06/16 at 14:30 Glucose (Glutose) 15 gm Q15M PRN PO DECREASED GLUCOSE; Start 03/06/16 at 14:30 Glucose (Glutose) 22.5 gm Q15M PRN PO DECREASED GLUCOSE; Start 03/06/16 at 14: 30 Dextrose (D50w Syringe) 25 ml Q15M PRN IV DECREASED GLUCOSE; Start 03/06/16 at 14:30 Dextrose (D50w Syringe) 50 ml Q15M PRN IV DECREASED GLUCOSE; Start 03/06/16 at 14:30 Glucagon (Glucagen) 1 mg Q15M PRN IM DECREASED GLUCOSE; Start 03/06/16 at 14: 30 Glucose 15 gm 15 gm Q15M PRN BUCCAL DECREASED GLUCOSE; Start 03/06/16 at 14:30 Cefepime HCl (Maxipime 1gm/50 ml (Pmx)) 50 ml @ 100 mls/hr Q12 IVPB Last administered on 03/08/16at 08:35; Admin Dose 100 MLS/HR; Start 03/06/16 at 21: 00 Salmeterol Xinafoate/ Fluticasone (Advair 250/50 Diskus) 1 inh BID INH Last administered on 03/08/16at 08:35; Admin Dose 1 INH; Start 03/06/16 at 21:00 Diagnostic Test (Pha) 1 ea 1 ea 02 XX Last administered on 03/08/16at 02:16; Admin Dose 1 EA; Start 03/07/16 at 02:00 Vancomycin HCl/ Sodium Chloride (Vancocin/NS) 250 ml @ 83.333 mls/ hr Q12H IVPB Last administered on 03/08/16at 15:35; Admin Dose 83.333 MLS/HR; Start at 14:00; Stop 03/08/16 at 18:00 Diltiazem HCl 90 mg 90 mg Q6 PO Last administered on 03/08/16at 06:22; Admin Dose 90 MG; Start 03/07/16 at 18:30 Propofol (Diprivan) 100 ml @ 3.816 mls/ hr Q12H IV Last administered on at 11:53; Admin Dose 38.16 MLS/HR; Start 03/08/16 at 10:00 Insulin Aspart (Novolog Insulin Pen) NOVOLOG *MODERATE* ALGORITHM Q6 SC Last administered on 03/08/16at 12:51; Admin Dose 10 UNIT; Start 03/08/16 at 12:00 Apixaban (Eliquis) 5 mg BID NGT ; Start 03/08/16 at 10:50 Atorvastatin Calcium (Lipitor) 40 mg HS NGT ; Start 03/08/16 at 10:50 Spironolactone 12.5 mg 12.5 mg DAILY NGT ; Start 03/08/16 at 10:51 Vancomycin HCl (Vancocin) 250 ml @ 125 mls/hr Q12H IVPB ; Start 03/09/16 at 03 :00 Insulin Glargine (Lantus) 22 unit HS SC ; Start 03/08/16 at 21:00; Status UNV Miscellaneous Information (* Miscellaneous Pharmacy Order) Discontinue all previ... PROTOCOL ONCE XX ; Start 03/08/16 at 15:30; Stop 03/08/16 at 15:31 Diagnostic Test (Pha) (Accucheck) 1 ea Q1H XX ; Start 03/08/16 at 15:30; Status UNV Dextrose (D50w Syringe) 25 ml Q15M PRN IV Till BS 80 mg/dL or above x2; Start 03/08/16 at 15:30; Status UNV Dextrose (D50w Syringe) 50 ml Q15M PRN IV Till BS 80 mg/dL or above x2; Start 03/08/16 at 15:30; Status UNV Assessment/Plan Chief Complaint/Hosp Course IMPRESSION AND PLAN: 1. Hypoxemic hypercap resp failure 2. Encephalopathy 3. MICHAEL 4. Sepsis. The patient will require: 1. Emergent intubation, adjust for hypercapnea. 2. Antibiotics 3. NG tube placement. 4. Deep vein thrombosis and gastrointestinal prophylaxis. Prognosis poor. Problems: OSMANI LUIS MD, [facility] Mar 08, 2016 16:40
--- NOTE | 2016-03-08 18:01 | SP ---
DATE OF PROCEDURE: PROCEDURE: Endotracheal intubation. INDICATION: Hypoxemic and hypercapnic respiratory failure. DESCRIPTION OF PROCEDURE: The patient was placed in supine position, neck extended. Using MacIntos h blade 4 laryngoscope, vocal cords were visualized. Blood pressure, EKG, and pulse oximetry were c ontinuously monitored. A 7.5 endotracheal tube was passed through the cords and secured at 24 cm to the lip. CO2 capnometer was immediately positive and breath sounds were heard bilaterally. The pa tient placed on mechanical ventilation. Post-intubation chest x-ray and ABG have been requested. Dictated By: OSMANI LUIS MD SV/KIKE Conf#: [id number] DID#: [id number]
[2016-03-08] MEDS: APIXABAN 5 MG TABLET NGT SCH (20:57)
[2016-03-08] MEDS: ATORVASTATIN 40 MG TAB NGT SCH (20:58)
[2016-03-08] MEDS: INSULIN GLARGINE [LANtus] 3 ML PEN SC SCH ×2 (20:59→21:49)
[2016-03-08] MEDS: IPRATROPIUM (HFA) 12.9 GM INHALER INH SCH (21:58)
[2016-03-08] MEDS: ALBUTEROL HFA 8 GM INHALER INH SCH (21:59)
[2016-03-09] VITALS (60 sets, daily range): BP systolic 80–135; BP diastolic 43–91; PULSE 89–134; RESP 14–28
[2016-03-09] MEDS: ACCUCHECK XX SCH ×25 (00:30→23:53)
[2016-03-09] MEDS: DILTIAZEM 90 MG TAB PO SCH ×5 (00:32→23:45)
[2016-03-09] MEDS: IPRATROPIUM (HFA) 12.9 GM INHALER INH SCH ×6 (01:08→20:14)
[2016-03-09] MEDS: ALBUTEROL HFA 8 GM INHALER INH SCH ×6 (01:09→20:14)
[2016-03-09] MEDS: VANCOMYCIN 1 GM in NS 250 ML IVPB SCH ×2 (03:02→14:47)
[2016-03-09 04:51] LABS: BASOPHILS % 0.3 % (0.0-2.0); EOSINOPHILS # 0.1 10^3/ul (0.0-0.5); EOSINOPHILS % 0.5 % (0.0-7.0); HEMOGLOBIN 9.9 g/dl (12.0-16.0); LYMPHOCYTES # 1.9 10^3/ul (0.8-2.9); LYMPHOCYTES % 14.5 % (15.0-51.0); MEAN CORPUSCULAR HEMOGLOBIN 28.6 pg (29.0-33.0); MEAN CORPUSCULAR VOLUME 89.3 fl (82.0-101.0); MEAN PLATELET VOLUME 7.8 fl (7.4-10.4); MONOCYTE # 1.1 10^3/ul (0.3-0.9); MONOCYTES % 8.4 % (0.0-11.0); NEUTROPHIL # 9.9 10^3/ul (1.6-7.5); NEUTROPHILS % 76.3 % (39.0-77.0); PLATELET COUNT 350 10^3/UL (140-440); RED BLOOD COUNT 3.47 10^6/ul (4.20-5.40); RED CELL DISTRIBUTION WIDTH 20.2 % (11.5-14.5)
[2016-03-09 05:03] LABS: CONDITION 1; LH ANALYZER COMMENTS 1
[2016-03-09 05:07] LABS: POTASSIUM 3.5 mmol/L (3.5-5.1)
[2016-03-09 05:09] LABS: CREATININE 0.92 mg/dl (0.44-1.00)
[2016-03-09 05:10] LABS: CALCIUM 8.7 mg/dl (8.4-10.2); PHOSPHORUS 1.4 mg/dl (2.5-4.9)
[2016-03-09 05:11] LABS: MAGNESIUM 1.6 mg/dl (1.7-2.5)
[2016-03-09] MEDS: PROPOFOL 100 ML IV SCH ×3 (05:40→19:50)
[2016-03-09] MEDS: BUMETANIDE 1 MG INJ IV SCH ×2 (06:32→18:02)
[2016-03-09] MEDS: SALMETEROL/FLUTICASONE 250/50 INHA INH SCH ×2 (07:55→21:00)
[2016-03-09 08:00] LABS: AADO2 Arterial 405.5 mmHg (7.0-24.0); Allen Test ACCEPTAB; Arterial Base Excess 17.6 mmol/L (-3.0-3); Arterial COHb 0.4 % (0.0-3.0); Arterial Fraction of Oxyhgb 93.6 % (93.0-99.0); Arterial HCO3 39.4 mmol/L (22.0-26.0); Arterial MetHb 0.1 % (0.0-1.5); Arterial Total Hemglobin 11.1 g/dl (12.0-18.0); MODE VENT - AC
--- NOTE | 2016-03-09 08:59 | RADRPT ---
PROCEDURE: XR Chest. CLINICAL INDICATION: Pneumonia, congestive heart failure. TECHNIQUE: Single frontal view of the chest was obtained. COMPARISON: 03/08/2016. FINDINGS: The cardiomediastinal silhouette remains enlarged. There is aortic calcification. Pulmonary vascul ature remains prominent. There are mixed bilateral interstitial and airspace opacities. This appea rs more prominent on the left. On the right this has decreased slightly. There is a left pleural e ffusion. Endotracheal tube, nasogastric tube and right PICC line appear unchanged. IMPRESSION: 1. Continued congestive heart failure with mixed interstitial and alveolar opacities. The alveolar opacities at the right lung base have improved and at the left lung base appears slightly worse. 2. Small left pleural effusion. 3. Aortic atherosclerosis. RPTAT: [facility] Physician Radha Date Time Electronically viewed and signed by Matthew Lizarraga Physician on 03/09/2016 08:58 /
[2016-03-09] MEDS: CEFEPIME 1GM/50 ML (PMX) 50 ML IVPB SCH ×2 (09:27→21:18)
[2016-03-09] MEDS: SPIRONOLACTONE 25 MG TAB NGT SCH (09:28)
[2016-03-09] MEDS: APIXABAN 5 MG TABLET NGT SCH ×2 (09:28→21:18)
--- NOTE | 2016-03-09 10:16 | CONS ---
Date/Time of Note Date/Time of Note DATE: 03/09/16 TIME: 10:15 Consult Date/Type/Reason Admit Date/Time Mar 06, 2016 at 15:11 Type of Consultation: pulmonary Subjective Emergent intubation yesterday continues mechanical ventilation with FiO2 80% Intubated sedated appears comfortable at rest Objective Vital Signs Date Time Temp Pulse Resp B/P Pulse Ox O2 Delivery O2 Flow Rate FiO2 03/09/16 09:30 98 27 105/91 98 Mechanical Ventilator 03/09/16 08:00 99.6 03/09/16 05:27 70 03/08/16 08:25 15.0 Intake and Output 03/08/16 03/08/16 03/09/16 15:00 23:00 07:00 Intake Total 117.010 ml 516.20 ml 446.84 ml Output Total 1100 ml 1720 ml 225 ml Balance -982.990 ml -1203.80 ml 221.84 ml PHYSICAL EXAMINATION: GENERAL: Moderately obese lady, now intubated on mechanical ventilation appears comfortable at rest VITAL SIGNS: NECK: Supple. No JVD or lymphadenopathy. CARDIAC: S1, S2. No added sounds or murmurs. CHEST: Diminished air entry bilaterally. ABDOMEN: Soft, nontender, obese. EXTREMITIES: No cyanosis, clubbing, edema +2 NEUROLOGIC: Generalized weakness, unable to assess Results/Medications Result Diagram: 03/09/16 0417 03/09/16 0417 Results 24 hrs Laboratory Tests Test 03/08/16 10:30 03/08/16 12:46 03/08/16 13:20 03/08/16 16:06 Arterial Blood HCO3 37.6 H Arterial Blood Base Excess 10.4 H Arterial Blood Oxygen Saturation 96.4 Joseph Test ACCEPTAB Arterial Blood Gas Puncture Site Left Radial Arterial Blood Carboxyhemoglobin 0.2 Arterial Blood Date Drawn 03/08/2016 10:39:07 AM Arterial Blood Methemoglobin 0.2 Arterial Blood pCO2 (Temp correct) 64.8 H Arterial Blood pH (Temp corrected) 7.382 Arterial Blood pO2 (Temp corrected) 80.5 Blood Gas A-a O2 Differential 567.7 H Blood Gas Actual Respiration Rate 24 Blood Gas Low PEEP Setting 5.0 Blood Gas Modality VENT - AC Blood Gas Notified Time 03/08/2016 10:50:58 AM Blood Gas Notified Whom JLD Blood Gas Respiration Rate 24.0 Blood Gas Specimen Source Blood arterial Blood Gas Temperature 37.0 Blood Gas Tidal Volume 550.0 FiO2 100.0 Oxyhemoglobin Percent 96.0 Total Hemoglobin 11.6 L Bedside Glucose 348 H 249 H Alanine Aminotransferase (ALT/SGPT) 59 Albumin 3.5 Albumin/Globulin Ratio 1.09 Alkaline Phosphatase 191 H Anion Gap 10 Aspartate Amino Transf (AST/SGOT) 28 Basophils # 0.1 Basophils % 0.6 Blood Morphology Comment Blood Urea Nitrogen 25 H Calcium Level 8.3 L Carbon Dioxide Level 40 H Chloride Level 85 L Creatinine 0.84 Direct Bilirubin 0.00 Eosinophils # 0.0 Eosinophils % 0.1 Globulin 3.20 Glucose Level 303 H Hematocrit 31.9 L Hemoglobin 10.2 L Indirect Bilirubin 0.3 Lymphocytes # 1.0 Lymphocytes % 7.1 L Magnesium Level 1.8 Mean Corpuscular Hemoglobin 28.6 L Mean Corpuscular Hemoglobin Concent 32.0 Mean Corpuscular Volume 89.3 Mean Platelet Volume 7.4 Monocytes # 0.8 Monocytes % 5.6 Neutrophils # 12.3 H Neutrophils % 86.6 H Nucleated Red Blood Cells # 0.0 Nucleated Red Blood Cells % 0.0 Platelet Count 357 Potassium Level 4.5 Red Blood Count 3.57 L Red Cell Distribution Width 19.3 H Sodium Level 130 L Total Bilirubin 0.3 Total Protein 6.7 Vancomycin Level Trough 16.9 White Blood Count 14.2 H Test 03/08/16 17:13 03/08/16 17:54 03/08/16 19:04 03/08/16 19:35 Bedside Glucose 244 H 210 194 179 Test 03/08/16 20:45 03/08/16 21:25 03/08/16 22:37 03/08/16 23:41 Bedside Glucose 143 141 114 113 Test 03/09/16 00:34 03/09/16 02:34 03/09/16 03:29 03/09/16 04:17 Bedside Glucose 97 129 114 Anion Gap 13 Basophils # 0.0 Basophils % 0.3 Blood Morphology Comment Blood Urea Nitrogen 24 H Calcium Level 8.7 Carbon Dioxide Level 42 *H Chloride Level 87 L Creatinine 0.92 Eosinophils # 0.1 Eosinophils % 0.5 Glucose Level 108 # Hematocrit 31.0 L Hemoglobin 9.9 L Lymphocytes # 1.9 Lymphocytes % 14.5 L Magnesium Level 1.6 L Mean Corpuscular Hemoglobin 28.6 L Mean Corpuscular Hemoglobin Concent 32.0 Mean Corpuscular Volume 89.3 Mean Platelet Volume 7.8 Monocytes # 1.1 H Monocytes % 8.4 Neutrophils # 9.9 H Neutrophils % 76.3 Nucleated Red Blood Cells # 0.0 Nucleated Red Blood Cells % 0.0 Phosphorus Level 1.4 L Platelet Count 350 Potassium Level 3.5 Red Blood Count 3.47 L Red Cell Distribution Width 20.2 H Sodium Level 138 White Blood Count 13.0 H Test 03/09/16 04:29 03/09/16 05:38 03/09/16 06:25 03/09/16 07:00 Bedside Glucose 114 108 107 Arterial Blood HCO3 39.4 H Arterial Blood Base Excess 17.6 H Arterial Blood Oxygen Saturation 94.1 L Joseph Test ACCEPTAB Arterial Blood Gas Puncture Site Left Radial Arterial Blood Carboxyhemoglobin 0.4 Arterial Blood Date Drawn 03/09/2016 7:35:52 AM Arterial Blood Methemoglobin 0.1 Arterial Blood pCO2 (Temp correct) 35.5 Arterial Blood pH (Temp corrected) 7.663 *H Arterial Blood pO2 (Temp corrected) 55.4 L Blood Gas A-a O2 Differential 405.5 H Blood Gas Actual Respiration Rate 24 Blood Gas Critical Value Read Back Ray GRIGSBY RN Blood Gas Low PEEP Setting 5.0 Blood Gas Modality VENT - AC Blood Gas Notified Time 03/09/2016 7:59:15 AM Blood Gas Notified Whom JLD Blood Gas Respiration Rate 24.0 Blood Gas Specimen Source Blood arterial Blood Gas Temperature 37.0 Blood Gas Tidal Volume 550.0 FiO2 70.0 Oxyhemoglobin Percent 93.6 Total Hemoglobin 11.1 L Test 03/09/16 08:07 Bedside Glucose 151 Medications Current Medications Dextrose (D50w Syringe) 25 ml Q15M PRN IV DECREASED GLUCOSE; Start 03/06/16 at 14:30 Dextrose 50 ml 50 ml Q15M PRN IV DECREASED GLUCOSE; Start 03/06/16 at 14:30 Cefepime HCl (Maxipime 1gm/50 ml (Pmx)) 50 ml @ 100 mls/hr Q12 IVPB Last administered on 03/09/16at 09:27; Admin Dose 100 MLS/HR; Start 03/06/16 at 21: 00 Salmeterol Xinafoate/ Fluticasone (Advair 250/50 Diskus) 1 inh BID INH Last administered on 03/08/16at 08:35; Admin Dose 1 INH; Start 03/06/16 at 21:00 Diltiazem HCl 90 mg 90 mg Q6 PO Last administered on 03/09/16at 06:40; Admin Dose 90 MG; Start 03/07/16 at 18:30 Propofol (Diprivan) 100 ml @ 3.816 mls/ hr Q12H IV Last administered on 05:40; Admin Dose 11.448 MLS/HR; Start 03/08/16 at 10:00 Apixaban (Eliquis) 5 mg BID NGT Last administered on 03/09/16 09:28; Admin Dose 5 MG; Start 03/08/16 at 10:50 Atorvastatin Calcium (Lipitor) 40 mg HS NGT Last administered on 03/08/16at 20: 58; Admin Dose 40 MG; Start 03/08/16 at 10:50 Spironolactone 12.5 mg 12.5 mg DAILY NGT Last administered on 03/09/16at 09:28 ; Admin Dose 12.5 MG; Start 03/08/16 at 10:51 Vancomycin HCl (Vancocin) 250 ml @ 125 mls/hr Q12H IVPB Last administered on 03/09/16 03:02; Admin Dose 125 MLS/HR; Start 03/09/16 at 03:00 Insulin Glargine (Lantus) 22 unit HS SC Last administered on 03/08/16at 21:49; Admin Dose 22 UNIT; Start 03/08/16 at 21:00 Diagnostic Test (Pha) (Accucheck) 1 ea Q1H XX Last administered on 03/09/16 05:43; Admin Dose 1 EA; Start 03/08/16 at 15:30 Dextrose (D50w Syringe) 25 ml Q15M PRN IV Till BS 80 mg/dL or above x2; Start 03/08/16 at 15:30 Dextrose (D50w Syringe) 50 ml Q15M PRN IV Till BS 80 mg/dL or above x2; Start 03/08/16 at 15:30 Assessment/Plan Chief Complaint/Hosp Course IMPRESSION AND PLAN: 1. Hypoxemic hypercap resp failure now intubated requiring mechanical ventilation 2. Encephalopathy 3. MICHAEL 4. Sepsis. The patient will require: 1. Continue ventilator support decrease FiO2 as tolerated. 2. Antibiotics 3. NG tube placement. 4. Deep vein thrombosis and gastrointestinal prophylaxis. Prognosis poor. Problems: OSMANI LUIS MD, [facility] Mar 09, 2016 10:16
--- NOTE | 2016-03-09 14:13 | PN ---
Date/Time of Note Date/Time of Note DATE: 03/09/16 TIME: 14:03 Assessment/Plan VTE Prophylaxis VTE Prophylaxis Intervention: other Assessment/Plan Chief Complaint/Hosp Course 1. Acute respiratory failure secondary to known left-sided pneumonia with associated left-sided pleural effusion and hypoventilation syndrome cont vent support, pulmonology following Continue antibiotics, diuresis with Bumex 2. Atrial fibrillation with rapid ventricular response Continue diltiazem if blood pressure tolerates 3. Diabetes mellitus type [id number] cont insulin drip and subQ 4. Hyperkalemia-resolved 5. Stable multinodular goiter. 6. Morbid obesity Continue to recommend lifestyle changes Prophylaxis: Eliquis Problems: Subjective 24 Hr Interval Summary Subjective hx not possible: pt non-verbal Exam/Review of Systems Vital Signs Vitals Vital Signs Date Time Temp Pulse Resp B/P Pulse Ox O2 Delivery O2 Flow Rate FiO2 03/09/16 13:28 110 14 98 60 03/09/16 10:30 92/56 Mechanical Ventilator 03/09/16 08:00 99.6 03/08/16 08:25 15.0 Intake and Output 03/08/16 03/08/16 03/09/16 15:00 23:00 07:00 Intake Total 117.010 ml 516.20 ml 446.84 ml Output Total 1100 ml 1720 ml 425 ml Balance -982.990 ml -1203.80 ml 21.84 ml Exam Constitutional: non-verbal ENMT: intubated Respiratory: clear to auscultation Cardiovascular: regular rate and rhythm Gastrointestinal: soft, No distended Musculoskeletal: nl extremities to inspection Results Result Diagram: 03/09/16 0417 03/09/16 0417 Results 24 hrs Laboratory Tests Test 03/08/16 16:06 03/08/16 17:13 03/08/16 17:54 03/08/16 19:04 Bedside Glucose 249 H 244 H 210 194 Test 03/08/16 19:35 03/08/16 20:45 03/08/16 21:25 03/08/16 22:37 Bedside Glucose 179 143 141 114 Test 03/08/16 23:41 03/09/16 00:34 03/09/16 02:34 03/09/16 03:29 Bedside Glucose 113 97 129 114 Test 03/09/16 04:17 03/09/16 04:29 03/09/16 05:38 03/09/16 06:25 Anion Gap 13 Basophils # 0.0 Basophils % 0.3 Blood Morphology Comment Blood Urea Nitrogen 24 H Calcium Level 8.7 Carbon Dioxide Level 42 *H Chloride Level 87 L Creatinine 0.92 Eosinophils # 0.1 Eosinophils % 0.5 Glucose Level 108 # Hematocrit 31.0 L Hemoglobin 9.9 L Lymphocytes # 1.9 Lymphocytes % 14.5 L Magnesium Level 1.6 L Mean Corpuscular Hemoglobin 28.6 L Mean Corpuscular Hemoglobin Concent 32.0 Mean Corpuscular Volume 89.3 Mean Platelet Volume 7.8 Monocytes # 1.1 H Monocytes % 8.4 Neutrophils # 9.9 H Neutrophils % 76.3 Nucleated Red Blood Cells # 0.0 Nucleated Red Blood Cells % 0.0 Phosphorus Level 1.4 L Platelet Count 350 Potassium Level 3.5 Red Blood Count 3.47 L Red Cell Distribution Width 20.2 H Sodium Level 138 White Blood Count 13.0 H Bedside Glucose 114 108 107 Test 03/09/16 07:00 03/09/16 08:07 03/09/16 10:15 03/09/16 12:27 Arterial Blood HCO3 39.4 H Arterial Blood Base Excess 17.6 H Arterial Blood Oxygen Saturation 94.1 L Joseph Test ACCEPTAB Arterial Blood Gas Puncture Site Left Radial Arterial Blood Carboxyhemoglobin 0.4 Arterial Blood Date Drawn 03/09/2016 7:35:52 AM Arterial Blood Methemoglobin 0.1 Arterial Blood pCO2 (Temp correct) 35.5 Arterial Blood pH (Temp corrected) 7.663 *H Arterial Blood pO2 (Temp corrected) 55.4 L Blood Gas A-a O2 Differential 405.5 H Blood Gas Actual Respiration Rate 24 Blood Gas Critical Value Read Back Ray GRIGSBY RN Blood Gas Low PEEP Setting 5.0 Blood Gas Modality VENT - AC Blood Gas Notified Time 03/09/2016 7:59:15 AM Blood Gas Notified Whom VANESAD Blood Gas Respiration Rate 24.0 Blood Gas Specimen Source Blood arterial Blood Gas Temperature 37.0 Blood Gas Tidal Volume 550.0 FiO2 70.0 Oxyhemoglobin Percent 93.6 Total Hemoglobin 11.1 L Bedside Glucose 151 114 102 Medications Medications Current Medications Dextrose (D50w Syringe) 25 ml Q15M PRN IV DECREASED GLUCOSE; Start 03/06/16 at 14:30 Dextrose 50 ml 50 ml Q15M PRN IV DECREASED GLUCOSE; Start 03/06/16 at 14:30 Cefepime HCl (Maxipime 1gm/50 ml (Pmx)) 50 ml @ 100 mls/hr Q12 IVPB Last administered on 03/09/16at 09:27; Admin Dose 100 MLS/HR; Start 03/06/16 at 21: 00 Salmeterol Xinafoate/ Fluticasone (Advair 250/50 Diskus) 1 inh BID INH Last administered on 03/08/16at 08:35; Admin Dose 1 INH; Start 03/06/16 at 21:00 Diltiazem HCl 90 mg 90 mg Q6 PO Last administered on 03/09/16at 12:37; Admin Dose 90 MG; Start 03/07/16 at 18:30 Propofol (Diprivan) 100 ml @ 3.816 mls/ hr Q12H IV Last administered on at 13:06; Admin Dose 15.256 MLS/HR; Start 03/08/16 at 10:00 Apixaban (Eliquis) 5 mg BID NGT Last administered on 03/09/16at 09:28; Admin Dose 5 MG; Start 03/08/16 at 10:50 Atorvastatin Calcium (Lipitor) 40 mg HS NGT Last administered on 03/08/16at 20: 58; Admin Dose 40 MG; Start 03/08/16 at 10:50 Spironolactone 12.5 mg 12.5 mg DAILY NGT Last administered on 03/09/16at 09:28 ; Admin Dose 12.5 MG; Start 03/08/16 at 10:51 Vancomycin HCl (Vancocin) 250 ml @ 125 mls/hr Q12H IVPB Last administered on 03/09/16at 03:02; Admin Dose 125 MLS/HR; Start 03/09/16 at 03:00 Insulin Glargine (Lantus) 22 unit HS SC Last administered on 03/08/16at 21:49; Admin Dose 22 UNIT; Start 03/08/16 at 21:00 Diagnostic Test (Pha) (Accucheck) 1 ea Q1H XX Last administered on 03/09/16at 05:43; Admin Dose 1 EA; Start 03/08/16 at 15:30 Dextrose (D50w Syringe) 25 ml Q15M PRN IV Till BS 80 mg/dL or above x2; Start 03/08/16 at 15:30 Dextrose (D50w Syringe) 50 ml Q15M PRN IV Till BS 80 mg/dL or above x2; Start 03/08/16 at 15:30 JOB MG Mar 09, 2016 14:13
[2016-03-09] MEDS ORDERED: MAGNESIUM SULFATE 3 GM in SOD CHLORIDE 0.9% 100 ML IVPB ONE (17:00)
--- NOTE | 2016-03-09 18:16 | CONS ---
Date/Time of Note Date/Time of Note DATE: 03/09/16 TIME: 18:14 Assessment/Plan Assessment/Plan Chief Complaint/Hosp Course Acute on chronic diastolic heart failure - echocardiogram 11/14/2015 showed LVEF 55%, mild diastolic dysfunction Paroxysmal atrial fibrillation - now rate controlled Acute on chronic hypoxic respiratory failure - intubated and on mechanical ventilation Pneumonia - left pleural effusion also noted Chronic obstructive pulmonary disease exacerbation - on 4 liters home oxygen at baseline Hypertension Dyslipidemia Diabetes mellitus -continue Bumex 1mg IV BID, add Diamox 500mg IV daily -continue diltiazem 90mg PO/NGT Q6hr -continue spironolactone 12.5mg daily -continue Eliquis 5mg BID -continue atorvastatin 40mg daily Problems: Consultation Date/Type/Reason Admit Date/Time Mar 06, 2016 at 15:11 Type of Consultation: Cardiology 24 HR Interval Summary Free Text/Dictation Remains intubated. Exam/Review of Systems Vital Signs Vitals Vital Signs Date Time Temp Pulse Resp B/P Pulse Ox O2 Delivery O2 Flow Rate FiO2 03/09/16 17:33 116 18 96 50 03/09/16 17:00 120/69 Mechanical Ventilator 03/09/16 16:00 98.4 03/08/16 08:25 15.0 Intake and Output 03/08/16 03/08/16 03/09/16 15:00 23:00 07:00 Intake Total 117.010 ml 516.20 ml 446.84 ml Output Total 1100 ml 1720 ml 425 ml Balance -982.990 ml -1203.80 ml 21.84 ml Exam Constitutional: intubated Psych: intubated Head: atraumatic, normocephalic Respiratory: clear to auscultation, No crackles/rales Cardiovascular: No regular rate and rhythm (IRIR) Gastrointestinal: soft Extremities: normal pulses Results Result Diagram: 03/09/16 0417 03/09/16 0417 Results 24 hrs Laboratory Tests Test 03/08/16 19:04 03/08/16 19:35 03/08/16 20:45 03/08/16 21:25 Bedside Glucose 194 179 143 141 Test 03/08/16 22:37 03/08/16 23:41 03/09/16 00:34 03/09/16 02:34 Bedside Glucose 114 113 97 129 Test 03/09/16 03:29 03/09/16 04:17 03/09/16 04:29 03/09/16 05:38 Bedside Glucose 114 114 108 Anion Gap 13 Basophils # 0.0 Basophils % 0.3 Blood Morphology Comment Blood Urea Nitrogen 24 H Calcium Level 8.7 Carbon Dioxide Level 42 *H Chloride Level 87 L Creatinine 0.92 Eosinophils # 0.1 Eosinophils % 0.5 Glucose Level 108 # Hematocrit 31.0 L Hemoglobin 9.9 L Lymphocytes # 1.9 Lymphocytes % 14.5 L Magnesium Level 1.6 L Mean Corpuscular Hemoglobin 28.6 L Mean Corpuscular Hemoglobin Concent 32.0 Mean Corpuscular Volume 89.3 Mean Platelet Volume 7.8 Monocytes # 1.1 H Monocytes % 8.4 Neutrophils # 9.9 H Neutrophils % 76.3 Nucleated Red Blood Cells # 0.0 Nucleated Red Blood Cells % 0.0 Phosphorus Level 1.4 L Platelet Count 350 Potassium Level 3.5 Red Blood Count 3.47 L Red Cell Distribution Width 20.2 H Sodium Level 138 White Blood Count 13.0 H Test 03/09/16 06:25 03/09/16 07:00 03/09/16 08:07 03/09/16 10:15 Bedside Glucose 107 151 114 Arterial Blood HCO3 39.4 H Arterial Blood Base Excess 17.6 H Arterial Blood Oxygen Saturation 94.1 L Joseph Test ACCEPTAB Arterial Blood Gas Puncture Site Left Radial Arterial Blood Carboxyhemoglobin 0.4 Arterial Blood Date Drawn 03/09/2016 7:35:52 AM Arterial Blood Methemoglobin 0.1 Arterial Blood pCO2 (Temp correct) 35.5 Arterial Blood pH (Temp corrected) 7.663 *H Arterial Blood pO2 (Temp corrected) 55.4 L Blood Gas A-a O2 Differential 405.5 H Blood Gas Actual Respiration Rate 24 Blood Gas Critical Value Read Back Ray GRIGSBY RN Blood Gas Low PEEP Setting 5.0 Blood Gas Modality VENT - AC Blood Gas Notified Time 03/09/2016 7:59:15 AM Blood Gas Notified Whom JLD Blood Gas Respiration Rate 24.0 Blood Gas Specimen Source Blood arterial Blood Gas Temperature 37.0 Blood Gas Tidal Volume 550.0 FiO2 70.0 Oxyhemoglobin Percent 93.6 Total Hemoglobin 11.1 L Test 03/09/16 12:27 03/09/16 14:39 03/09/16 16:18 Bedside Glucose 102 110 111 Medications Medications Current Medications Dextrose (D50w Syringe) 25 ml Q15M PRN IV DECREASED GLUCOSE; Start 03/06/16 at 14:30 Dextrose 50 ml 50 ml Q15M PRN IV DECREASED GLUCOSE; Start 03/06/16 at 14:30 Cefepime HCl (Maxipime 1gm/50 ml (Pmx)) 50 ml @ 100 mls/hr Q12 IVPB Last administered on 03/09/16at 09:27; Admin Dose 100 MLS/HR; Start 03/06/16 at 21: 00 Salmeterol Xinafoate/ Fluticasone (Advair 250/50 Diskus) 1 inh BID INH Last administered on 03/08/16at 08:35; Admin Dose 1 INH; Start 03/06/16 at 21:00 Diltiazem HCl 90 mg 90 mg Q6 PO Last administered on 03/09/16at 18:03; Admin Dose 90 MG; Start 03/07/16 at 18:30 Propofol (Diprivan) 100 ml @ 3.816 mls/ hr Q12H IV Last administered on at 13:06; Admin Dose 15.256 MLS/HR; Start 03/08/16 at 10:00 Apixaban (Eliquis) 5 mg BID NGT Last administered on 03/09/16at 09:28; Admin Dose 5 MG; Start 03/08/16 at 10:50 Atorvastatin Calcium (Lipitor) 40 mg HS NGT Last administered on 03/08/16at 20: 58; Admin Dose 40 MG; Start 03/08/16 at 10:50 Spironolactone 12.5 mg 12.5 mg DAILY NGT Last administered on 03/09/16at 09:28 ; Admin Dose 12.5 MG; Start 03/08/16 at 10:51 Vancomycin HCl (Vancocin) 250 ml @ 125 mls/hr Q12H IVPB Last administered on 03/09/16at 14:47; Admin Dose 125 MLS/HR; Start 03/09/16 at 03:00 Insulin Glargine (Lantus) 22 unit HS SC Last administered on 03/08/16at 21:49; Admin Dose 22 UNIT; Start 03/08/16 at 21:00 Diagnostic Test (Pha) (Accucheck) 1 ea Q1H XX Last administered on 03/09/16at 05:43; Admin Dose 1 EA; Start 03/08/16 at 15:30 Dextrose (D50w Syringe) 25 ml Q15M PRN IV Till BS 80 mg/dL or above x2; Start 03/08/16 at 15:30 Dextrose 50 ml 50 ml Q15M PRN IV Till BS 80 mg/dL or above x2; Start 03/08/16 at 15:30 Magnesium Sulfate 3 gm/Sodium Chloride 106 ml @ 35.333 mls/ hr ONCE ONCE IVPB Last administered on 03/09/16at 17:00; Admin Dose 35.333 MLS/HR; Start at 17:00; Stop 03/09/16 at 19:59 Potassium Phosphate/Sodium Chloride (K Phos (Meq)/NS) 259.0909 ml @ 64.773 m... ONCE ONCE IVPB ; Start 03/09/16 at 20:00; Stop 03/09/16 at 23:59 CAROLA WHALEY MD Mar 09, 2016 18:16
[2016-03-09] MEDS ORDERED: POTASSIUM PHOSPHATE 40 MEQ in SOD CHLORIDE 0.9% 250 ML IVPB ONE (20:00)
[2016-03-09] MEDS: ACETAZOLAMIDE 500 MG INJ IV SCH (20:03)
[2016-03-09] MEDS: ATORVASTATIN 40 MG TAB NGT SCH (21:18)
[2016-03-09] MEDS: INSULIN GLARGINE [LANtus] 3 ML PEN SC SCH (21:50)
[2016-03-10] VITALS (53 sets, daily range): BP systolic 85–128; BP diastolic 58–95; PULSE 99–137; RESP 13–36
[2016-03-10] MEDS: ALBUTEROL HFA 8 GM INHALER INH SCH ×6 (00:02→21:21)
[2016-03-10] MEDS: IPRATROPIUM (HFA) 12.9 GM INHALER INH SCH ×6 (00:02→21:21)
[2016-03-10] MEDS: PROPOFOL 100 ML IV SCH ×4 (02:12→20:17)
[2016-03-10] MEDS: ACCUCHECK XX SCH ×12 (02:12→12:16)
[2016-03-10] MEDS: VANCOMYCIN 1 GM in NS 250 ML IVPB SCH ×2 (03:31→15:02)
[2016-03-10] MEDS: BUMETANIDE 1 MG INJ IV SCH ×2 (06:06→17:15)
[2016-03-10 06:13] LABS: EOSINOPHILS % 0.4 % (0.0-7.0); HEMOGLOBIN 10.5 g/dl (12.0-16.0); LYMPHOCYTES # 1.3 10^3/ul (0.8-2.9); LYMPHOCYTES % 11.6 % (15.0-51.0); MEAN CORPUSCULAR HEMOGLOBIN 28.8 pg (29.0-33.0); MEAN CORPUSCULAR HGB CONC 31.9 g/dl (32.0-37.0); MEAN CORPUSCULAR VOLUME 90.5 fl (82.0-101.0); MEAN PLATELET VOLUME 7.8 fl (7.4-10.4); MONOCYTE # 0.7 10^3/ul (0.3-0.9); MONOCYTES % 5.8 % (0.0-11.0); NEUTROPHIL # 9.6 10^3/ul (1.6-7.5); NEUTROPHILS % 82.2 % (39.0-77.0); PLATELET COUNT 365 10^3/UL (140-440); RED BLOOD COUNT 3.64 10^6/ul (4.20-5.40); RED CELL DISTRIBUTION WIDTH 19.8 % (11.5-14.5); UNCORRECTED WBC 11.6 10^3/ul (4.8-10.8); WHITE BLOOD COUNT 11.6 10^3/ul (4.8-10.8)
[2016-03-10 06:31] LABS: CONDITION 1; LH ANALYZER COMMENTS 1
[2016-03-10] MEDS: DILTIAZEM 90 MG TAB PO SCH ×3 (06:32→17:15)
[2016-03-10 06:47] LABS: POTASSIUM 3.2 mmol/L (3.5-5.1)
[2016-03-10 06:50] LABS: CREATININE 1.01 mg/dl (0.44-1.00)
[2016-03-10 06:51] LABS: CALCIUM 8.4 mg/dl (8.4-10.2); MAGNESIUM 2.5 mg/dl (1.7-2.5); PHOSPHORUS 5.3 mg/dl (2.5-4.9)
[2016-03-10 07:58] LABS: AADO2 Arterial 215.3 mmHg (7.0-24.0); Allen Test ACCEPTAB; Arterial Base Excess 14.6 mmol/L (-3.0-3); Arterial COHb 0.4 % (0.0-3.0); Arterial Fraction of Oxyhgb 91.9 % (93.0-99.0); Arterial MetHb 0.2 % (0.0-1.5); Arterial Total Hemglobin 12.1 g/dl (12.0-18.0); MODE VENT - AC
[2016-03-10] MEDS: ACETAZOLAMIDE 500 MG INJ IV SCH (08:35)
[2016-03-10] MEDS: SPIRONOLACTONE 25 MG TAB NGT SCH (08:35)
[2016-03-10] MEDS: APIXABAN 5 MG TABLET NGT SCH ×2 (08:35→20:24)
--- NOTE | 2016-03-10 08:35 | RADRPT ---
PROCEDURE: XR Chest. CLINICAL INDICATION: Pneumonia, congestive heart failure. TECHNIQUE: Single frontal view of the chest was obtained. COMPARISON: 03/09/2016. FINDINGS: There is no significant change in moderate cardiomegaly. There is calcification and unfolding of th e thoracic aorta. Pulmonary vascular congestion is slightly improved. There has been a slight decr ease in diffuse interstitial edema. There is continued air space consolidation and/or atelectasis a t the left lung base. There is no change in the small left pleural effusion. Endotracheal tube, na sogastric tube and right PICC line appear unchanged. IMPRESSION: 1. Slight interval improvement in congestive heart failure. 2. Continued consolidation and/or atelectasis at the left lung base. 3. No change in small left pleural effusion. 4. Aortic atherosclerosis. RPTAT: [facility] Physician Radha Date Time Electronically viewed and signed by Physician Radha on 03/10/2016 08:35 /
[2016-03-10] MEDS: CEFEPIME 1GM/50 ML (PMX) 50 ML IVPB SCH ×2 (08:39→20:17)
[2016-03-10] MEDS: SALMETEROL/FLUTICASONE 250/50 INHA INH SCH ×2 (08:48→20:43)
[2016-03-10] MEDS ORDERED: POTASSIUM CHLORIDE 250 ML IVPB ONE (10:00)
--- NOTE | 2016-03-10 12:55 | CONS ---
Date/Time of Note Date/Time of Note DATE: 03/10/16 TIME: 12:53 Assessment/Plan Assessment/Plan Chief Complaint/Hosp Course Acute on chronic diastolic heart failure - echocardiogram 11/14/2015 showed LVEF 55%, mild diastolic dysfunction Paroxysmal atrial fibrillation - rapid ventricular rates Acute on chronic hypoxic respiratory failure - intubated and on mechanical ventilation Pneumonia - left pleural effusion also noted Chronic obstructive pulmonary disease exacerbation - on 4 liters home oxygen at baseline Hypertension Dyslipidemia Diabetes mellitus -continue Bumex 1mg IV BID and Diamox 500mg IV daily -continue diltiazem 90mg PO/NGT Q6hr -continue spironolactone 12.5mg daily -continue Eliquis 5mg BID -continue atorvastatin 40mg daily Problems: Consultation Date/Type/Reason Admit Date/Time Mar 06, 2016 at 15:11 Type of Consultation: Cardiology 24 HR Interval Summary Free Text/Dictation Remains intubated in ICU. Diuresing well. Detailed Summary Additional Comments Unable to obtain review of systems, patient intubated. Exam/Review of Systems Vital Signs Vitals Vital Signs Date Time Temp Pulse Resp B/P Pulse Ox O2 Delivery O2 Flow Rate FiO2 03/10/16 12:00 97.9 115 19 115/78 93 Mechanical Ventilator 03/10/16 10:52 45 03/08/16 08:25 15.0 Intake and Output 03/09/16 03/09/16 03/10/16 15:00 23:00 07:00 Intake Total 269.516 ml 645.072 ml 377.348 ml Output Total 525 ml 1080 ml 650 ml Balance -255.484 ml -434.928 ml -272.652 ml Exam Constitutional: intubated Psych: intubated Head: atraumatic, normocephalic Respiratory: clear to auscultation, No crackles/rales Cardiovascular: No regular rate and rhythm (IRIR) Gastrointestinal: soft Extremities: normal pulses Results Result Diagram: 03/10/16 0400 03/10/16 0400 Results 24 hrs Laboratory Tests Test 03/09/16 14:39 03/09/16 16:18 03/09/16 20:10 03/09/16 21:47 Bedside Glucose 110 111 118 128 Test 03/09/16 23:44 03/10/16 02:11 03/10/16 03:58 03/10/16 04:00 Bedside Glucose 126 125 109 Anion Gap 16 Basophils # 0.0 Basophils % 0.0 Blood Morphology Comment Blood Urea Nitrogen 23 H Calcium Level 8.4 Carbon Dioxide Level 37 H Chloride Level 92 L Creatinine 1.01 H Eosinophils # 0.0 Eosinophils % 0.4 Glucose Level 74 Hematocrit 33.0 L Hemoglobin 10.5 L Lymphocytes # 1.3 Lymphocytes % 11.6 L Magnesium Level 2.5 Mean Corpuscular Hemoglobin 28.8 L Mean Corpuscular Hemoglobin Concent 31.9 L Mean Corpuscular Volume 90.5 Mean Platelet Volume 7.8 Monocytes # 0.7 Monocytes % 5.8 Neutrophils # 9.6 H Neutrophils % 82.2 H Nucleated Red Blood Cells # 0.0 Nucleated Red Blood Cells % 0.0 Phosphorus Level 5.3 #H Platelet Count 365 Potassium Level 3.2 L Red Blood Count 3.64 L Red Cell Distribution Width 19.8 H Sodium Level 142 White Blood Count 11.6 H Test 03/10/16 06:12 03/10/16 07:00 03/10/16 07:35 03/10/16 10:07 Bedside Glucose 107 101 100 Arterial Blood HCO3 42.0 *H Arterial Blood Base Excess 14.6 H Arterial Blood Oxygen Saturation 92.5 L Joseph Test ACCEPTAB Arterial Blood Gas Puncture Site Left Radial Arterial Blood Carboxyhemoglobin 0.4 Arterial Blood Date Drawn 03/10/2016 7:30:00 AM Arterial Blood Methemoglobin 0.2 Arterial Blood pCO2 (Temp correct) 66.9 H Arterial Blood pH (Temp corrected) 7.416 Arterial Blood pO2 (Temp corrected) 65.9 L Blood Gas A-a O2 Differential 215.3 H Blood Gas Actual Respiration Rate 14 Blood Gas Critical Value Read Back Chasidy ACEVEDO RN Blood Gas Low PEEP Setting 5.0 Blood Gas Modality VENT - AC Blood Gas Notified Time 03/10/2016 7:58:00 AM Blood Gas Notified Whom JLD Blood Gas Respiration Rate 14.0 Blood Gas Specimen Source Blood arterial Blood Gas Temperature 37.0 Blood Gas Tidal Volume 500.0 FiO2 50.0 Oxyhemoglobin Percent 91.9 L Total Hemoglobin 12.1 Medications Medications Current Medications Dextrose (D50w Syringe) 25 ml Q15M PRN IV DECREASED GLUCOSE; Start 03/06/16 at 14:30 Dextrose 50 ml 50 ml Q15M PRN IV DECREASED GLUCOSE; Start 03/06/16 at 14:30 Cefepime HCl (Maxipime 1gm/50 ml (Pmx)) 50 ml @ 100 mls/hr Q12 IVPB Last administered on 03/10/16at 08:39; Admin Dose 100 MLS/HR; Start 03/06/16 at 21: 00 Salmeterol Xinafoate/ Fluticasone (Advair 250/50 Diskus) 1 inh BID INH Last administered on 03/08/16at 08:35; Admin Dose 1 INH; Start 03/06/16 at 21:00 Diltiazem HCl 90 mg 90 mg Q6 PO Last administered on 03/10/16at 12:16; Admin Dose 90 MG; Start 03/07/16 at 18:30 Propofol (Diprivan) 100 ml @ 3.816 mls/ hr Q12H IV Last administered on 08:42; Admin Dose 15.264 MLS/HR; Start 03/08/16 at 10:00 Apixaban (Eliquis) 5 mg BID NGT Last administered on 03/10/16at 08:35; Admin Dose 5 MG; Start 03/08/16 at 10:50 Atorvastatin Calcium (Lipitor) 40 mg HS NGT Last administered on 03/09/16at 21: 18; Admin Dose 40 MG; Start 03/08/16 at 10:50 Spironolactone 12.5 mg 12.5 mg DAILY NGT Last administered on 03/10/16at 08:35 ; Admin Dose 12.5 MG; Start 03/08/16 at 10:51 Vancomycin HCl (Vancocin) 250 ml @ 125 mls/hr Q12H IVPB Last administered on 03/10/16at 03:31; Admin Dose 125 MLS/HR; Start 03/09/16 at 03:00 Insulin Glargine (Lantus) 22 unit HS SC Last administered on 03/09/16at 21:50; Admin Dose 22 UNIT; Start 03/08/16 at 21:00 Diagnostic Test (Pha) (Accucheck) 1 ea Q1H XX Last administered on 03/10/16at 12:16; Admin Dose 1 EA; Start 03/08/16 at 15:30 Dextrose (D50w Syringe) 25 ml Q15M PRN IV Till BS 80 mg/dL or above x2; Start 03/08/16 at 15:30 Dextrose (D50w Syringe) 50 ml Q15M PRN IV Till BS 80 mg/dL or above x2; Start 03/08/16 at 15:30 Acetazolamide (Diamox) 500 mg DAILY IV Last administered on 03/10/16at 08:35; Admin Dose 500 MG; Start 03/09/16 at 18:30 Miscellaneous Information VANCO TROUGH @ 1,400 ON ... ONCE ONCE XX ; Start at 14:00; Stop 03/10/16 at 14:01 Potassium Chloride (KCl 40 MEQ/250 ML NS) 250 ml @ 62.5 mls/hr ONCE ONCE IVPB Last administered on 03/10/16at 11:20; Admin Dose 62.5 MLS/HR; Start at 10:00; Stop 03/10/16 at 13:59 CAROLA WHALEY MD Mar 10, 2016 12:55
--- NOTE | 2016-03-10 14:21 | PN ---
Date/Time of Note Date/Time of Note DATE: 03/10/16 TIME: 14:18 Assessment/Plan VTE Prophylaxis VTE Prophylaxis Intervention: other Assessment/Plan Chief Complaint/Hosp Course 1. Acute respiratory failure secondary to known left-sided pneumonia with associated left-sided pleural effusion and hypoventilation syndrome cont vent support, pulmonology following Continue antibiotics, diuresis with Bumex 2. Atrial fibrillation with rapid ventricular response Continue diltiazem if blood pressure tolerates 3. Diabetes mellitus type 2-now controlled DC Insulin drip and start subQ Insulin 4. Hypokalemia-replete 5. Stable multinodular goiter. 6. Morbid obesity Continue to recommend lifestyle changes Prophylaxis: Eliquis Problems: Subjective 24 Hr Interval Summary Subjective hx not possible: pt non-verbal Exam/Review of Systems Vital Signs Vitals Vital Signs Date Time Temp Pulse Resp B/P Pulse Ox O2 Delivery O2 Flow Rate FiO2 03/10/16 12:00 97.9 115 19 115/78 93 Mechanical Ventilator 03/10/16 10:52 45 03/08/16 08:25 15.0 Intake and Output 03/09/16 03/09/16 03/10/16 15:00 23:00 07:00 Intake Total 269.516 ml 645.072 ml 377.348 ml Output Total 525 ml 1080 ml 650 ml Balance -255.484 ml -434.928 ml -272.652 ml Exam Constitutional: non-verbal ENMT: intubated Respiratory: clear to auscultation Cardiovascular: regular rate and rhythm Gastrointestinal: soft, No distended Musculoskeletal: nl extremities to inspection Results Result Diagram: 03/10/16 0400 03/10/16 0400 Results 24 hrs Laboratory Tests Test 03/09/16 14:39 03/09/16 16:18 03/09/16 20:10 03/09/16 21:47 Bedside Glucose 110 111 118 128 Test 03/09/16 23:44 03/10/16 02:11 03/10/16 03:58 03/10/16 04:00 Bedside Glucose 126 125 109 Anion Gap 16 Basophils # 0.0 Basophils % 0.0 Blood Morphology Comment Blood Urea Nitrogen 23 H Calcium Level 8.4 Carbon Dioxide Level 37 H Chloride Level 92 L Creatinine 1.01 H Eosinophils # 0.0 Eosinophils % 0.4 Glucose Level 74 Hematocrit 33.0 L Hemoglobin 10.5 L Lymphocytes # 1.3 Lymphocytes % 11.6 L Magnesium Level 2.5 Mean Corpuscular Hemoglobin 28.8 L Mean Corpuscular Hemoglobin Concent 31.9 L Mean Corpuscular Volume 90.5 Mean Platelet Volume 7.8 Monocytes # 0.7 Monocytes % 5.8 Neutrophils # 9.6 H Neutrophils % 82.2 H Nucleated Red Blood Cells # 0.0 Nucleated Red Blood Cells % 0.0 Phosphorus Level 5.3 #H Platelet Count 365 Potassium Level 3.2 L Red Blood Count 3.64 L Red Cell Distribution Width 19.8 H Sodium Level 142 White Blood Count 11.6 H Test 03/10/16 06:12 03/10/16 07:00 03/10/16 07:35 03/10/16 10:07 Bedside Glucose 107 101 100 Arterial Blood HCO3 42.0 *H Arterial Blood Base Excess 14.6 H Arterial Blood Oxygen Saturation 92.5 L Joseph Test ACCEPTAB Arterial Blood Gas Puncture Site Left Radial Arterial Blood Carboxyhemoglobin 0.4 Arterial Blood Date Drawn 03/10/2016 7:30:00 AM Arterial Blood Methemoglobin 0.2 Arterial Blood pCO2 (Temp correct) 66.9 H Arterial Blood pH (Temp corrected) 7.416 Arterial Blood pO2 (Temp corrected) 65.9 L Blood Gas A-a O2 Differential 215.3 H Blood Gas Actual Respiration Rate 14 Blood Gas Critical Value Read Back Chasidy ACEVEDO RN Blood Gas Low PEEP Setting 5.0 Blood Gas Modality VENT - AC Blood Gas Notified Time 03/10/2016 7:58:00 AM Blood Gas Notified Whom JLD Blood Gas Respiration Rate 14.0 Blood Gas Specimen Source Blood arterial Blood Gas Temperature 37.0 Blood Gas Tidal Volume 500.0 FiO2 50.0 Oxyhemoglobin Percent 91.9 L Total Hemoglobin 12.1 Test 03/10/16 12:16 Bedside Glucose 83 Medications Medications Current Medications Cefepime HCl (Maxipime 1gm/50 ml (Pmx)) 50 ml @ 100 mls/hr Q12 IVPB Last administered on 03/10/16at 08:39; Admin Dose 100 MLS/HR; Start 03/06/16 at 21: 00 Salmeterol Xinafoate/ Fluticasone (Advair 250/50 Diskus) 1 inh BID INH Last administered on 03/08/16at 08:35; Admin Dose 1 INH; Start 03/06/16 at 21:00 Diltiazem HCl 90 mg 90 mg Q6 PO Last administered on 03/10/16at 12:16; Admin Dose 90 MG; Start 03/07/16 at 18:30 Propofol (Diprivan) 100 ml @ 3.816 mls/ hr Q12H IV Last administered on at 08:42; Admin Dose 15.264 MLS/HR; Start 03/08/16 at 10:00 Apixaban (Eliquis) 5 mg BID NGT Last administered on 03/10/16at 08:35; Admin Dose 5 MG; Start 03/08/16 at 10:50 Atorvastatin Calcium (Lipitor) 40 mg HS NGT Last administered on 03/09/16at 21: 18; Admin Dose 40 MG; Start 03/08/16 at 10:50 Spironolactone 12.5 mg 12.5 mg DAILY NGT Last administered on 03/10/16at 08:35 ; Admin Dose 12.5 MG; Start 03/08/16 at 10:51 Vancomycin HCl (Vancocin) 250 ml @ 125 mls/hr Q12H IVPB Last administered on 03/10/16at 03:31; Admin Dose 125 MLS/HR; Start 03/09/16 at 03:00 Insulin Glargine (Lantus) 22 unit HS SC Last administered on 03/09/16at 21:50; Admin Dose 22 UNIT; Start 03/08/16 at 21:00 Acetazolamide (Diamox) 500 mg DAILY IV Last administered on 03/10/16at 08:35; Admin Dose 500 MG; Start 03/09/16 at 18:30 Insulin Aspart (Novolog Insulin Pen) NOVOLOG *MODERATE* ALGORI... Q4 SC ; Start 03/10/16 at 17:00 Miscellaneous Information 1 ea NOTE XX ; Start 03/10/16 at 14:30 Glucose (Glutose) 15 gm Q15M PRN PO DECREASED GLUCOSE; Start 03/10/16 at 14:30 Glucose (Glutose) 22.5 gm Q15M PRN PO DECREASED GLUCOSE; Start 03/10/16 at 14: 30 Dextrose (D50w Syringe) 25 ml Q15M PRN IV DECREASED GLUCOSE; Start 03/10/16 at 14:30 Dextrose (D50w Syringe) 50 ml Q15M PRN IV DECREASED GLUCOSE; Start 03/10/16 at 14:30 Glucagon (Glucagen) 1 mg Q15M PRN IM DECREASED GLUCOSE; Start 03/10/16 at 14: 30 Glucose (Glutose) 15 gm Q15M PRN BUCCAL DECREASED GLUCOSE; Start 03/10/16 at 14:30 JOB MG Mar 10, 2016 14:21
[2016-03-10] MEDS ORDERED: DEXTROSE 50% 50 ML SYRINGE IV PRN ×2 (14:30)
[2016-03-10] MEDS ORDERED: GLUCOSE GEL 15 GRAM TUBE PO PRN ×2 (14:30)
[2016-03-10] MEDS ORDERED: GLUCOSE GEL 15 GRAM TUBE BUCCAL PRN (14:30)
[2016-03-10] MEDS ORDERED: GLUCAGON 1 MG INJ IM PRN (14:30)
[2016-03-10] MEDS: INSULIN ASPART [NOVOLOG] 3 ML PEN SC SCH ×2 (16:31→20:34)
[2016-03-10] MEDS: ATORVASTATIN 40 MG TAB NGT SCH (20:25)
[2016-03-10] MEDS: INSULIN GLARGINE [LANtus] 3 ML PEN SC SCH (20:42)
[2016-03-11] VITALS (60 sets, daily range): BP systolic 88–183; BP diastolic 52–103; PULSE 95–139; RESP 14–38
[2016-03-11] MEDS: DILTIAZEM 90 MG TAB PO SCH ×4 (00:10→17:25)
[2016-03-11] MEDS: PROPOFOL 100 ML IV SCH ×5 (00:26→22:44)
[2016-03-11] MEDS: INSULIN ASPART [NOVOLOG] 3 ML PEN SC SCH ×6 (01:00→22:42)
[2016-03-11] MEDS: IPRATROPIUM (HFA) 12.9 GM INHALER INH SCH ×6 (01:25→20:20)
[2016-03-11] MEDS: ALBUTEROL HFA 8 GM INHALER INH SCH ×6 (01:25→20:20)
[2016-03-11] MEDS: VANCOMYCIN 1 GM in NS 250 ML IVPB SCH ×2 (03:31→15:05)
[2016-03-11 05:18] LABS: BASOPHILS % 0.3 % (0.0-2.0); EOSINOPHILS % 0.4 % (0.0-7.0); HEMATOCRIT 33.9 % (37.0-47.0); HEMOGLOBIN 10.7 g/dl (12.0-16.0); LYMPHOCYTES # 1.2 10^3/ul (0.8-2.9); LYMPHOCYTES % 10.3 % (15.0-51.0); MEAN CORPUSCULAR HEMOGLOBIN 28.4 pg (29.0-33.0); MEAN CORPUSCULAR HGB CONC 31.6 g/dl (32.0-37.0); MEAN CORPUSCULAR VOLUME 89.9 fl (82.0-101.0); MEAN PLATELET VOLUME 7.8 fl (7.4-10.4); MONOCYTE # 0.9 10^3/ul (0.3-0.9); MONOCYTES % 7.4 % (0.0-11.0); NEUTROPHIL # 9.5 10^3/ul (1.6-7.5); NEUTROPHILS % 81.6 % (39.0-77.0); PLATELET COUNT 351 10^3/UL (140-440); RED BLOOD COUNT 3.77 10^6/ul (4.20-5.40); RED CELL DISTRIBUTION WIDTH 19.5 % (11.5-14.5); UNCORRECTED WBC 11.7 10^3/ul (4.8-10.8); WHITE BLOOD COUNT 11.7 10^3/ul (4.8-10.8)
[2016-03-11 05:26] LABS: CREATININE 1.09 mg/dl (0.44-1.00)
[2016-03-11 05:27] LABS: CALCIUM 8.2 mg/dl (8.4-10.2)
[2016-03-11 05:29] LABS: Arterial Base Excess 10.8 mmol/L (-3.0-3); Arterial COHb 0.8 % (0.0-3.0); Arterial Fraction of Oxyhgb 90.8 % (93.0-99.0); Arterial HCO3 36.1 mmol/L (22.0-26.0); Arterial MetHb 0.2 % (0.0-1.5); Arterial Total Hemglobin 11.9 g/dl (12.0-18.0); MODE VENT - AC
[2016-03-11 05:38] LABS: CONDITION 1; LH ANALYZER COMMENTS 1
[2016-03-11] MEDS: BUMETANIDE 1 MG INJ IV SCH ×2 (06:22→17:24)
[2016-03-11 06:39] LABS: POTASSIUM 2.7 mmol/L (3.5-5.1)
[2016-03-11 07:25] LABS: PHOSPHORUS 3.6 mg/dl (2.5-4.9)
[2016-03-11 07:26] LABS: MAGNESIUM 2.4 mg/dl (1.7-2.5)
[2016-03-11] MEDS: POTASSIUM CHLORIDE 50 ML IVPB SCH ×3 (07:44→11:36)
--- NOTE | 2016-03-11 07:59 | RADRPT ---
PROCEDURE: XR Chest 1 view. CLINICAL INDICATION: Shortness of breath, follow up TECHNIQUE: AP views of the chest were obtained. COMPARISON: March 10, 2016 FINDINGS: The heart is large. Calcified atherosclerosis is noted in the aorta. Endotracheal and nasogastric t ubes are stable and appear in grossly appropriate location. Central pulmonary vascular congestion a nd interstitial prominence in both lungs is unchanged. Retrocardiac opacity is stable. Atelectasis is noted in the right lower lung. Osseous structures are intact. IMPRESSION: Cardiomegaly with calcified atherosclerosis in the aorta. Stable central pulmonary vascular congestion and interstitial prominence in both lungs. Stable retrocardiac opacity that may reflect left lower lobe atelectasis or infiltrate combined with small pleural effusion. Atelectasis in the right lower lung. RPTAT: AA .Alberto An MD, Date Time Electronically viewed and signed by .Alberto An MD, MD on 03/11/2016 07:59 .P/
[2016-03-11] MEDS: SALMETEROL/FLUTICASONE 250/50 INHA INH SCH ×2 (09:00→21:00)
[2016-03-11] MEDS: ACETAZOLAMIDE 500 MG INJ IV SCH (09:29)
[2016-03-11] MEDS: SPIRONOLACTONE 25 MG TAB NGT SCH (09:30)
[2016-03-11] MEDS: APIXABAN 5 MG TABLET NGT SCH ×2 (09:30→22:05)
[2016-03-11] MEDS: CEFEPIME 1GM/50 ML (PMX) 50 ML IVPB SCH ×2 (09:30→22:05)
--- NOTE | 2016-03-11 10:50 | CONS ---
DATE OF ADMISSION: 03/06/2016 DATE OF CONSULTATION: 03/11/2016 INITIAL PALLIATIVE CARE CONSULTATION HISTORY OF PRESENT ILLNESS: This lady is a 65-year-old female who is in the intensive care unit at [facility], presented with acute shortness of breath. She is in the ICU. She is intubated at this time. She has a history of congestive heart failure and chronic obstructive pulmo nary disease. Comorbid medical problems include atrial fibrillation with RVR, morbid obesity, type 2 diabetes. Apparently there is a history of noncompliance with medications. She was recently admi tted to [facility] 2 months ago for similar diagnosis. I am asked to see the octavio ent, examine her, and remain available in the event that she has some catastrophic event that occurs during this hospitalization, not to institute any type of comfort measures or at this time address her code status. MEDICATIONS: Please refer to reconciliation sheet. ALLERGIES: SHE HAS NO KNOWN DRUG ALLERGIES. MAJOR MEDICAL PROBLEMS IN THE PAST: As per history of present illness. We have somewhat of an inco mplete database otherwise. SOCIAL HISTORY: Unknown. FAMILY HISTORY: Unknown. REVIEW OF SYSTEMS: Cannot be done at this time as she is intubated. PHYSICAL EXAMINATION: VITAL SIGNS: Blood pressure 113/77, pulse of 113 and irregularly irregular, respiratory rate of 30, 93% saturation on 40% FIO2, temperature 100.5 degrees. HEENT: She is normocephalic and atraumatic. Anicteric, acyanotic. NECK: She is awake, alert, tracks me, nods to simple questions, moving all extremities normally. CHEST: Shows distant breath sounds throughout both lung [place]. COR: S1, S2, irregularly irregular rhythm. ABDOMEN: Grossly huge with active bowel sounds. LABORATORY DATA: White blood cell count 11.7, hemoglobin 10.7, hematocrit 33.9, MCV of 89.9, platel et count 351,000. Chemistries: Serum sodium 147, potassium 2.7, chloride 94, bicarbonate 38, BUN o f 26, creatinine is 1.09, blood sugar of 86, calcium 8.2. ASSESSMENT AND PLAN: This is a 65-year-old female, very high risk for some catastrophic cardiopulmo nary event to occur in the near future. This is her second hospitalization in the last 2 months. I will follow her during this hospitalization. Once again, I will not address code status with famil y members, but I will stay available in the event that she decompensates once again. I will have a long discussion with her prior to discharge concerning compliant with the medications and the very h igh probability chance that she will have some catastrophic event in the future if she does not comp ly with her medical regimen. Dictated By: BRIELLE CANO MD, LP/KIKE Conf#: [id number] DID#: [id number]
--- NOTE | 2016-03-11 14:53 | PN ---
Date/Time of Note Date/Time of Note DATE: 03/11/16 TIME: 14:52 Assessment/Plan VTE Prophylaxis VTE Prophylaxis Intervention: other Lines/Catheters IV Catheter Type (from Nrs): Saline Lock Assessment/Plan Chief Complaint/Hosp Course 1. Acute respiratory failure secondary to known left-sided pneumonia with associated left-sided pleural effusion and hypoventilation syndrome cont vent support, pulmonology following, failed CPAP trial today Continue antibiotics, diuresis with Bumex 2. Atrial fibrillation with rapid ventricular response Continue diltiazem if blood pressure tolerates 3. Diabetes mellitus type 2-now controlled Continue subQ Insulin regimen 4. Hypokalemia-replete 5. Stable multinodular goiter. 6. Morbid obesity Continue to recommend lifestyle changes Prophylaxis: Eliquis Problems: Subjective 24 Hr Interval Summary Subjective hx not possible: pt non-verbal Exam/Review of Systems Vital Signs Vitals Vital Signs Date Time Temp Pulse Resp B/P Pulse Ox O2 Delivery O2 Flow Rate FiO2 03/11/16 13:05 45 03/11/16 13:00 130 36 93 03/11/16 12:00 101.7 117/86 Mechanical Ventilator 03/08/16 08:25 15.0 Intake and Output 03/10/16 03/10/16 03/11/16 15:00 23:00 07:00 Intake Total 415.15 ml 452.622 ml 402.64 ml Output Total 1150 ml 850 ml 650 ml Balance -734.85 ml -397.378 ml -247.36 ml Exam Constitutional: non-verbal ENMT: intubated Respiratory: clear to auscultation Cardiovascular: regular rate and rhythm Gastrointestinal: distended, soft Musculoskeletal: nl extremities to inspection Results Result Diagram: 03/11/16 0400 03/11/16 0400 Results 24 hrs Laboratory Tests Test 03/10/16 16:30 03/10/16 20:33 03/11/16 00:19 03/11/16 04:00 Bedside Glucose 87 99 102 Anion Gap 18 H Basophils # 0.0 Basophils % 0.3 Blood Morphology Comment Blood Urea Nitrogen 26 H Calcium Level 8.2 L Carbon Dioxide Level 38 H Chloride Level 94 L Creatinine 1.09 H Eosinophils # 0.0 Eosinophils % 0.4 Glucose Level 86 Hematocrit 33.9 L Hemoglobin 10.7 L Lymphocytes # 1.2 Lymphocytes % 10.3 L Magnesium Level 2.4 Mean Corpuscular Hemoglobin 28.4 L Mean Corpuscular Hemoglobin Concent 31.6 L Mean Corpuscular Volume 89.9 Mean Platelet Volume 7.8 Monocytes # 0.9 Monocytes % 7.4 Neutrophils # 9.5 H Neutrophils % 81.6 H Nucleated Red Blood Cells # 0.0 Nucleated Red Blood Cells % 0.0 Phosphorus Level 3.6 Platelet Count 351 Potassium Level 2.7 *L Red Blood Count 3.77 L Red Cell Distribution Width 19.5 H Sodium Level 147 H White Blood Count 11.7 H Test 03/11/16 05:00 03/11/16 09:34 03/11/16 13:29 Arterial Blood HCO3 36.1 H Arterial Blood Base Excess 10.8 H Arterial Blood Oxygen Saturation 91.7 L Joseph Test N/A Arterial Blood Gas Puncture Site LB Arterial Blood Carboxyhemoglobin 0.8 Arterial Blood Date Drawn 03/11/2016 4:45:50 AM Arterial Blood Methemoglobin 0.2 Arterial Blood pCO2 (Temp correct) 51.5 H Arterial Blood pH (Temp corrected) 7.464 H Arterial Blood pO2 (Temp corrected) 60.3 L Bedside Glucose 99 104 114 Blood Gas A-a O2 Differential 202.0 H Blood Gas Actual Respiration Rate 18 Blood Gas Low PEEP Setting 5.0 Blood Gas Modality VENT - AC Blood Gas Notified Time 03/11/2016 5:29:12 AM Blood Gas Notified Whom HG Blood Gas Respiration Rate 14.0 Blood Gas Specimen Source Blood arterial Blood Gas Temperature 37.0 Blood Gas Tidal Volume 500.0 FiO2 45.0 Oxyhemoglobin Percent 90.8 L Total Hemoglobin 11.9 L Medications Medications Current Medications Cefepime HCl (Maxipime 1gm/50 ml (Pmx)) 50 ml @ 100 mls/hr Q12 IVPB Last administered on 03/11/16at 09:30; Admin Dose 100 MLS/HR; Start 03/06/16 at 21: 00 Salmeterol Xinafoate/ Fluticasone (Advair 250/50 Diskus) 1 inh BID INH Last administered on 03/08/16at 08:35; Admin Dose 1 INH; Start 03/06/16 at 21:00 Diltiazem HCl 90 mg 90 mg Q6 PO Last administered on 03/11/16at 11:36; Admin Dose 90 MG; Start 03/07/16 at 18:30 Propofol (Diprivan) 100 ml @ 3.816 mls/ hr Q12H IV Last administered on at 11:38; Admin Dose 19.103 MLS/HR; Start 03/08/16 at 10:00 Apixaban (Eliquis) 5 mg BID NGT Last administered on 03/11/16at 09:30; Admin Dose 5 MG; Start 03/08/16 at 10:50 Atorvastatin Calcium (Lipitor) 40 mg HS NGT Last administered on 03/10/16at 20: 25; Admin Dose 40 MG; Start 03/08/16 at 10:50 Spironolactone 12.5 mg 12.5 mg DAILY NGT Last administered on 03/11/16at 09:30 ; Admin Dose 12.5 MG; Start 03/08/16 at 10:51 Vancomycin HCl (Vancocin) 250 ml @ 125 mls/hr Q12H IVPB Last administered on 03/11/16at 03:31; Admin Dose 125 MLS/HR; Start 03/09/16 at 03:00 Insulin Glargine (Lantus) 22 unit HS SC Last administered on 03/10/16at 20:42; Admin Dose 22 UNIT; Start 03/08/16 at 21:00 Acetazolamide (Diamox) 500 mg DAILY IV Last administered on 03/11/16at 09:29; Admin Dose 500 MG; Start 03/09/16 at 18:30 Insulin Aspart (Novolog Insulin Pen) NOVOLOG *MODERATE* ALGORI... Q4 SC ; Start 03/10/16 at 17:00 Miscellaneous Information 1 ea NOTE XX ; Start 03/10/16 at 14:30 Glucose (Glutose) 15 gm Q15M PRN PO DECREASED GLUCOSE; Start 03/10/16 at 14:30 Glucose (Glutose) 22.5 gm Q15M PRN PO DECREASED GLUCOSE; Start 03/10/16 at 14: 30 Dextrose (D50w Syringe) 25 ml Q15M PRN IV DECREASED GLUCOSE; Start 03/10/16 at 14:30 Dextrose (D50w Syringe) 50 ml Q15M PRN IV DECREASED GLUCOSE; Start 03/10/16 at 14:30 Glucagon (Glucagen) 1 mg Q15M PRN IM DECREASED GLUCOSE; Start 03/10/16 at 14: 30 Glucose (Glutose) 15 gm Q15M PRN BUCCAL DECREASED GLUCOSE; Start 03/10/16 at 14:30 Acetaminophen (Tylenol Liquid) 650 mg Q4H PRN GTB PAIN AND OR ELEVATED TEMP; Start 03/11/16 at 12:30 Pantoprazole (Protonix Iv) 40 mg DAILY@06 IV ; Start 03/12/16 at 06:00 JOB MG Mar 11, 2016 14:53
--- NOTE | 2016-03-11 16:14 | CONS ---
Date/Time of Note Date/Time of Note DATE: 03/11/16 TIME: 16:13 Assessment/Plan Assessment/Plan Chief Complaint/Hosp Course Acute on chronic diastolic heart failure - echocardiogram 11/14/2015 showed LVEF 55%, mild diastolic dysfunction Paroxysmal atrial fibrillation - rapid ventricular rates Acute on chronic hypoxic respiratory failure - intubated and on mechanical ventilation Pneumonia - left pleural effusion also noted Chronic obstructive pulmonary disease exacerbation - on 4 liters home oxygen at baseline Hypertension Dyslipidemia Diabetes mellitus -continue Bumex 1mg IV BID and Diamox 500mg IV daily -continue diltiazem 90mg PO/NGT Q6hr -continue spironolactone 12.5mg daily -continue Eliquis 5mg BID -continue atorvastatin 40mg daily Problems: Consultation Date/Type/Reason Admit Date/Time Mar 06, 2016 at 15:11 Type of Consultation: Cardiology 24 HR Interval Summary Free Text/Dictation Remains intubated, failed CPAP trial. Exam/Review of Systems Vital Signs Vitals Vital Signs Date Time Temp Pulse Resp B/P Pulse Ox O2 Delivery O2 Flow Rate FiO2 03/11/16 15:00 133 15 149/97 92 Mechanical Ventilator 03/11/16 13:05 45 03/11/16 12:00 101.7 03/08/16 08:25 15.0 Intake and Output 03/10/16 03/10/16 03/11/16 15:00 23:00 07:00 Intake Total 415.15 ml 452.622 ml 402.64 ml Output Total 1150 ml 850 ml 650 ml Balance -734.85 ml -397.378 ml -247.36 ml Exam Constitutional: intubated Psych: intubated Head: atraumatic, normocephalic Respiratory: clear to auscultation, No crackles/rales Cardiovascular: No regular rate and rhythm (IRIR) Gastrointestinal: soft Extremities: normal pulses Results Result Diagram: 03/11/16 0400 03/11/16 0400 Results 24 hrs Laboratory Tests Test 03/10/16 16:30 03/10/16 20:33 03/11/16 00:19 03/11/16 04:00 Bedside Glucose 87 99 102 Anion Gap 18 H Basophils # 0.0 Basophils % 0.3 Blood Morphology Comment Blood Urea Nitrogen 26 H Calcium Level 8.2 L Carbon Dioxide Level 38 H Chloride Level 94 L Creatinine 1.09 H Eosinophils # 0.0 Eosinophils % 0.4 Glucose Level 86 Hematocrit 33.9 L Hemoglobin 10.7 L Lymphocytes # 1.2 Lymphocytes % 10.3 L Magnesium Level 2.4 Mean Corpuscular Hemoglobin 28.4 L Mean Corpuscular Hemoglobin Concent 31.6 L Mean Corpuscular Volume 89.9 Mean Platelet Volume 7.8 Monocytes # 0.9 Monocytes % 7.4 Neutrophils # 9.5 H Neutrophils % 81.6 H Nucleated Red Blood Cells # 0.0 Nucleated Red Blood Cells % 0.0 Phosphorus Level 3.6 Platelet Count 351 Potassium Level 2.7 *L Red Blood Count 3.77 L Red Cell Distribution Width 19.5 H Sodium Level 147 H White Blood Count 11.7 H Test 03/11/16 05:00 03/11/16 09:34 03/11/16 13:29 Arterial Blood HCO3 36.1 H Arterial Blood Base Excess 10.8 H Arterial Blood Oxygen Saturation 91.7 L Joseph Test N/A Arterial Blood Gas Puncture Site LB Arterial Blood Carboxyhemoglobin 0.8 Arterial Blood Date Drawn 03/11/2016 4:45:50 AM Arterial Blood Methemoglobin 0.2 Arterial Blood pCO2 (Temp correct) 51.5 H Arterial Blood pH (Temp corrected) 7.464 H Arterial Blood pO2 (Temp corrected) 60.3 L Bedside Glucose 99 104 114 Blood Gas A-a O2 Differential 202.0 H Blood Gas Actual Respiration Rate 18 Blood Gas Low PEEP Setting 5.0 Blood Gas Modality VENT - AC Blood Gas Notified Time 03/11/2016 5:29:12 AM Blood Gas Notified Whom HG Blood Gas Respiration Rate 14.0 Blood Gas Specimen Source Blood arterial Blood Gas Temperature 37.0 Blood Gas Tidal Volume 500.0 FiO2 45.0 Oxyhemoglobin Percent 90.8 L Total Hemoglobin 11.9 L Medications Medications Current Medications Cefepime HCl (Maxipime 1gm/50 ml (Pmx)) 50 ml @ 100 mls/hr Q12 IVPB Last administered on 03/11/16at 09:30; Admin Dose 100 MLS/HR; Start 03/06/16 at 21: 00 Salmeterol Xinafoate/ Fluticasone (Advair 250/50 Diskus) 1 inh BID INH Last administered on 03/08/16at 08:35; Admin Dose 1 INH; Start 03/06/16 at 21:00 Diltiazem HCl 90 mg 90 mg Q6 PO Last administered on 03/11/16at 11:36; Admin Dose 90 MG; Start 03/07/16 at 18:30 Propofol (Diprivan) 100 ml @ 3.816 mls/ hr Q12H IV Last administered on at 11:38; Admin Dose 19.103 MLS/HR; Start 03/08/16 at 10:00 Apixaban (Eliquis) 5 mg BID NGT Last administered on 03/11/16at 09:30; Admin Dose 5 MG; Start 03/08/16 at 10:50 Atorvastatin Calcium (Lipitor) 40 mg HS NGT Last administered on 03/10/16at 20: 25; Admin Dose 40 MG; Start 03/08/16 at 10:50 Spironolactone 12.5 mg 12.5 mg DAILY NGT Last administered on 03/11/16at 09:30 ; Admin Dose 12.5 MG; Start 03/08/16 at 10:51 Vancomycin HCl (Vancocin) 250 ml @ 125 mls/hr Q12H IVPB Last administered on 03/11/16at 15:05; Admin Dose 125 MLS/HR; Start 03/09/16 at 03:00 Insulin Glargine (Lantus) 22 unit HS SC Last administered on 03/10/16at 20:42; Admin Dose 22 UNIT; Start 03/08/16 at 21:00 Acetazolamide (Diamox) 500 mg DAILY IV Last administered on 03/11/16at 09:29; Admin Dose 500 MG; Start 03/09/16 at 18:30 Insulin Aspart (Novolog Insulin Pen) NOVOLOG *MODERATE* ALGORI... Q4 SC ; Start 03/10/16 at 17:00 Miscellaneous Information 1 ea NOTE XX ; Start 03/10/16 at 14:30 Glucose (Glutose) 15 gm Q15M PRN PO DECREASED GLUCOSE; Start 03/10/16 at 14:30 Glucose (Glutose) 22.5 gm Q15M PRN PO DECREASED GLUCOSE; Start 03/10/16 at 14: 30 Dextrose (D50w Syringe) 25 ml Q15M PRN IV DECREASED GLUCOSE; Start 03/10/16 at 14:30 Dextrose (D50w Syringe) 50 ml Q15M PRN IV DECREASED GLUCOSE; Start 03/10/16 at 14:30 Glucagon (Glucagen) 1 mg Q15M PRN IM DECREASED GLUCOSE; Start 03/10/16 at 14: 30 Glucose (Glutose) 15 gm Q15M PRN BUCCAL DECREASED GLUCOSE; Start 03/10/16 at 14:30 Acetaminophen (Tylenol Liquid) 650 mg Q4H PRN GTB PAIN AND OR ELEVATED TEMP; Start 03/11/16 at 12:30 Pantoprazole (Protonix Iv) 40 mg DAILY@06 IV ; Start 03/12/16 at 06:00 CAROLA WHALEY MD Mar 11, 2016 16:14
[2016-03-11] MEDS: ACETAMINOPHEN 650MG/20.3ML CUP GTB PRN (22:04)
[2016-03-11] MEDS: ATORVASTATIN 40 MG TAB NGT SCH (22:05)
[2016-03-11] MEDS: INSULIN GLARGINE [LANtus] 3 ML PEN SC SCH (22:38)
[2016-03-12] VITALS (48 sets, daily range): BP systolic 99–179; BP diastolic 57–148; PULSE 96–147; RESP 14–30
[2016-03-12] MEDS: INSULIN ASPART [NOVOLOG] 3 ML PEN SC SCH ×6 (01:00→20:57)
[2016-03-12] MEDS: DILTIAZEM 90 MG TAB PO SCH ×4 (01:07→18:56)
[2016-03-12] MEDS: ALBUTEROL HFA 8 GM INHALER INH SCH ×6 (01:14→21:33)
[2016-03-12] MEDS: IPRATROPIUM (HFA) 12.9 GM INHALER INH SCH ×6 (01:14→21:33)
[2016-03-12] MEDS: PROPOFOL 100 ML IV SCH ×3 (03:55→22:04)
[2016-03-12] MEDS: VANCOMYCIN 1 GM in NS 250 ML IVPB SCH ×2 (04:05→15:19)
[2016-03-12 05:22] LABS: AADO2 Arterial 224.1 mmHg (7.0-24.0); Arterial Base Excess 6.9 mmol/L (-3.0-3); Arterial COHb 0.4 % (0.0-3.0); Arterial Fraction of Oxyhgb 92.7 % (93.0-99.0); Arterial HCO3 33.4 mmol/L (22.0-26.0); Arterial MetHb 0.1 % (0.0-1.5); Arterial Total Hemglobin 11.9 g/dl (12.0-18.0); MODE VENT - AC
[2016-03-12] MEDS: PANTOPRAZOLE 40 MG INJ IV SCH (05:42)
[2016-03-12] MEDS: BUMETANIDE 1 MG INJ IV SCH ×2 (05:42→18:55)
[2016-03-12 06:56] LABS: BASOPHILS % 0.1 % (0.0-2.0); EOSINOPHILS # 0.1 10^3/ul (0.0-0.5); EOSINOPHILS % 0.8 % (0.0-7.0); HEMATOCRIT 34.5 % (37.0-47.0); HEMOGLOBIN 11.3 g/dl (12.0-16.0); LYMPHOCYTES # 1.2 10^3/ul (0.8-2.9); LYMPHOCYTES % 9.5 % (15.0-51.0); MEAN CORPUSCULAR HEMOGLOBIN 29.5 pg (29.0-33.0); MEAN CORPUSCULAR HGB CONC 32.8 g/dl (32.0-37.0); MEAN CORPUSCULAR VOLUME 89.7 fl (82.0-101.0); MEAN PLATELET VOLUME 8.3 fl (7.4-10.4); MONOCYTES % 8.2 % (0.0-11.0); NEUTROPHIL # 9.9 10^3/ul (1.6-7.5); NEUTROPHILS % 81.4 % (39.0-77.0); PLATELET COUNT 318 10^3/UL (140-440); RED BLOOD COUNT 3.84 10^6/ul (4.20-5.40); RED CELL DISTRIBUTION WIDTH 19.5 % (11.5-14.5); UNCORRECTED WBC 12.2 10^3/ul (4.8-10.8); WHITE BLOOD COUNT 12.2 10^3/ul (4.8-10.8)
[2016-03-12 07:10] LABS: CREATININE 1.03 mg/dl (0.44-1.00)
[2016-03-12 07:11] LABS: CALCIUM 8.1 mg/dl (8.4-10.2); CONDITION 1; LH ANALYZER COMMENTS 1; MAGNESIUM 2.4 mg/dl (1.7-2.5)
[2016-03-12] MEDS ORDERED: POTASSIUM CHLORIDE 250 ML IVPB ONE (07:30)
[2016-03-12] MEDS: SALMETEROL/FLUTICASONE 250/50 INHA INH SCH ×2 (08:51→20:53)
--- NOTE | 2016-03-12 08:58 | RADRPT ---
PROCEDURE: XR Chest 1 view. CLINICAL INDICATION: Shortness of breath TECHNIQUE: AP views of the chest were obtained. COMPARISON: March 11, 2016 FINDINGS: The heart is large. Calcified atherosclerosis is noted in the aorta. Central pulmonary vascular con gestion and interstitial prominence is seen in both lungs. Patchy infiltrates throughout both lungs have mildly increased and are likely combined with small pleural effusions. Right-sided PICC line is stable. Osseous structures are intact. IMPRESSION: Cardiomegaly with calcified atherosclerosis in the aorta. Continued central pulmonary vascular congestion and interstitial prominence in both lungs. Interval increase in patchy infiltrates throughout both lungs, combined with small pleural effusions . RPTAT: AA .Alberto An MD, Date Time Electronically viewed and signed by .Alberto An MD, on 03/12/2016 08:58 .P/
[2016-03-12] MEDS: APIXABAN 5 MG TABLET NGT SCH ×2 (09:28→20:53)
[2016-03-12] MEDS: ACETAZOLAMIDE 500 MG INJ IV SCH (09:28)
[2016-03-12] MEDS: CEFEPIME 1GM/50 ML (PMX) 50 ML IVPB SCH ×2 (09:29→20:53)
[2016-03-12] MEDS: SPIRONOLACTONE 25 MG TAB NGT SCH (09:29)
[2016-03-12] MEDS ORDERED: LABETALOL HCL 20MG INJ IV PRN (13:30)
[2016-03-12 14:21] LABS: AADO2 Arterial 204.6 mmHg (7.0-24.0); Allen Test ACCEPTAB; Arterial Base Excess 10.1 mmol/L (-3.0-3); Arterial COHb 0.4 % (0.0-3.0); Arterial Fraction of Oxyhgb 87.6 % (93.0-99.0); Arterial HCO3 39.5 mmol/L (22.0-26.0); Arterial MetHb 0.3 % (0.0-1.5); Arterial Total Hemglobin 12.6 g/dl (12.0-18.0); Blood Gas PS 10; MODE MASK - CPAP
--- NOTE | 2016-03-12 17:27 | PN ---
Date/Time of Note Date/Time of Note DATE: 03/12/16 TIME: 17:24 Assessment/Plan VTE Prophylaxis VTE Prophylaxis Intervention: other Lines/Catheters IV Catheter Type (from Nrs): Saline Lock Assessment/Plan Chief Complaint/Hosp Course 1. Acute respiratory failure secondary to known left-sided pneumonia with associated left-sided pleural effusion and hypoventilation syndrome cont vent support, pulmonology following, failed CPAP trial today Continue antibiotics, diuresis with Bumex 2. Atrial fibrillation with rapid ventricular response Continue diltiazem if blood pressure tolerates 3. Diabetes mellitus type 2-now controlled Continue subQ Insulin regimen 4. Hypokalemia-replete 5. Stable multinodular goiter. 6. Morbid obesity Continue to recommend lifestyle changes Prophylaxis: Eliquis Problems: Subjective 24 Hr Interval Summary Subjective hx not possible: pt non-verbal Exam/Review of Systems Vital Signs Vitals Vital Signs Date Time Temp Pulse Resp B/P Pulse Ox O2 Delivery O2 Flow Rate FiO2 03/12/16 17:14 115 14 97 03/12/16 16:00 98.8 138/106 Mechanical Ventilator 03/12/16 13:00 50 03/08/16 08:25 15.0 Intake and Output 03/11/16 03/11/16 03/12/16 15:00 23:00 07:00 Intake Total 347.16 ml 429.710 ml 372.108 ml Output Total 685 ml 380 ml 506 ml Balance -337.84 ml 49.710 ml -133.892 ml Exam Constitutional: non-verbal ENMT: intubated Respiratory: clear to auscultation Cardiovascular: regular rate and rhythm Gastrointestinal: distended, soft Musculoskeletal: nl extremities to inspection Results Result Diagram: 03/12/16 0500 03/12/16 0500 Results 24 hrs Laboratory Tests Test 03/11/16 22:30 03/12/16 01:08 03/12/16 05:00 03/12/16 05:38 Bedside Glucose 161 131 116 Arterial Blood HCO3 33.4 H Arterial Blood Base Excess 6.9 H Arterial Blood Oxygen Saturation 93.2 L Joseph Test N/A Arterial Blood Gas Puncture Site Right Brachial Anion Gap 16 Arterial Blood Carboxyhemoglobin 0.4 Arterial Blood Date Drawn 03/12/2016 5:10:08 AM Arterial Blood Methemoglobin 0.1 Arterial Blood pCO2 (Temp correct) 56.8 H Arterial Blood pH (Temp corrected) 7.387 Arterial Blood pO2 (Temp corrected) 68.5 L Basophils # 0.0 Basophils % 0.1 Blood Gas A-a O2 Differential 224.1 H Blood Gas Actual Respiration Rate 14 Blood Gas Low PEEP Setting 5.0 Blood Gas Modality VENT - AC Blood Gas Notified Time 03/12/2016 5:21:38 AM Blood Gas Notified Whom KM Blood Gas Respiration Rate 14.0 Blood Gas Specimen Source Blood arterial Blood Gas Temperature 37.0 Blood Gas Tidal Volume 500.0 Blood Morphology Comment Blood Urea Nitrogen 27 H Calcium Level 8.1 L Carbon Dioxide Level 37 H Chloride Level 95 L Creatinine 1.03 H Eosinophils # 0.1 Eosinophils % 0.8 FiO2 50.0 Glucose Level 105 Hematocrit 34.5 L Hemoglobin 11.3 L Lymphocytes # 1.2 Lymphocytes % 9.5 L Magnesium Level 2.4 Mean Corpuscular Hemoglobin 29.5 Mean Corpuscular Hemoglobin Concent 32.8 Mean Corpuscular Volume 89.7 Mean Platelet Volume 8.3 Monocytes # 1.0 H Monocytes % 8.2 Neutrophils # 9.9 H Neutrophils % 81.4 H Nucleated Red Blood Cells # 0.0 Nucleated Red Blood Cells % 0.0 Oxyhemoglobin Percent 92.7 L Phosphorus Level 3.0 Platelet Count 318 Potassium Level 3.0 L Red Blood Count 3.84 L Red Cell Distribution Width 19.5 H Sodium Level 145 H Total Hemoglobin 11.9 L White Blood Count 12.2 H Test 03/12/16 09:32 03/12/16 13:13 03/12/16 14:00 Bedside Glucose 127 117 Arterial Blood HCO3 39.5 H Arterial Blood Base Excess 10.1 H Arterial Blood Oxygen Saturation 88.2 L Joseph Test ACCEPTAB Arterial Blood Gas Puncture Site Right Radial Arterial Blood Carboxyhemoglobin 0.4 Arterial Blood Date Drawn 03/12/2016 2:00:10 PM Arterial Blood Methemoglobin 0.3 Arterial Blood pCO2 (Temp correct) 80.8 *H Arterial Blood pH (Temp corrected) 7.307 L Arterial Blood pO2 (Temp corrected) 61.0 L Blood Gas A-a O2 Differential 204.6 H Blood Gas Critical Value Read Back ZULMA RN Blood Gas Low PEEP Setting 5.0 Blood Gas Modality MASK - CPAP Blood Gas Notified Time 03/12/2016 2:20:53 PM Blood Gas Notified Whom CW Blood Gas Pressure Support 10 Blood Gas Specimen Source Blood arterial Blood Gas Temperature 37.0 Blood Gas Tidal Volume 323.0 FiO2 50.0 Oxyhemoglobin Percent 87.6 L Total Hemoglobin 12.6 Medications Medications Current Medications Cefepime HCl (Maxipime 1gm/50 ml (Pmx)) 50 ml @ 100 mls/hr Q12 IVPB Last administered on 03/12/16 09:29; Admin Dose 100 MLS/HR; Start 03/06/16 at 21: 00 Salmeterol Xinafoate/ Fluticasone (Advair 250/50 Diskus) 1 inh BID INH Last administered on 03/08/16 08:35; Admin Dose 1 INH; Start 03/06/16 at 21:00 Diltiazem HCl 90 mg 90 mg Q6 PO Last administered on 03/12/16 11:53; Admin Dose 90 MG; Start 03/07/16 at 18:30 Propofol (Diprivan) 100 ml @ 3.816 mls/ hr Q12H IV Last administered on 09:39; Admin Dose 15.264 MLS/HR; Start 03/08/16 at 10:00 Apixaban (Eliquis) 5 mg BID NGT Last administered on 03/12/16 09:28; Admin Dose 5 MG; Start 03/08/16 at 10:50 Atorvastatin Calcium (Lipitor) 40 mg HS NGT Last administered on 03/11/16 22: 05; Admin Dose 40 MG; Start 03/08/16 at 10:50 Spironolactone 12.5 mg 12.5 mg DAILY NGT Last administered on 03/12/16 09:29 ; Admin Dose 12.5 MG; Start 03/08/16 at 10:51 Vancomycin HCl (Vancocin) 250 ml @ 125 mls/hr Q12H IVPB Last administered on 03/12/16 15:19; Admin Dose 125 MLS/HR; Start 03/09/16 at 03:00 Insulin Glargine (Lantus) 22 unit HS SC Last administered on 03/11/16 22:38; Admin Dose 22 UNIT; Start 03/08/16 at 21:00 Acetazolamide (Diamox) 500 mg DAILY IV Last administered on 03/12/16 09:28; Admin Dose 500 MG; Start 03/09/16 at 18:30 Insulin Aspart (Novolog Insulin Pen) NOVOLOG *MODERATE* ALGORI... Q4 SC Last administered on 03/11/16at 22:42; Admin Dose 2 UNIT; Start 03/10/16 at 17:00 Miscellaneous Information 1 ea NOTE XX ; Start 03/10/16 at 14:30 Glucose (Glutose) 15 gm Q15M PRN PO DECREASED GLUCOSE; Start 03/10/16 at 14:30 Glucose (Glutose) 22.5 gm Q15M PRN PO DECREASED GLUCOSE; Start 03/10/16 at 14: 30 Dextrose (D50w Syringe) 25 ml Q15M PRN IV DECREASED GLUCOSE; Start 03/10/16 at 14:30 Dextrose (D50w Syringe) 50 ml Q15M PRN IV DECREASED GLUCOSE; Start 03/10/16 at 14:30 Glucagon (Glucagen) 1 mg Q15M PRN IM DECREASED GLUCOSE; Start 03/10/16 at 14: 30 Glucose (Glutose) 15 gm Q15M PRN BUCCAL DECREASED GLUCOSE; Start 03/10/16 at 14:30 Acetaminophen (Tylenol Liquid) 650 mg Q4H PRN GTB PAIN AND OR ELEVATED TEMP Last administered on 03/11/16at 22:04; Admin Dose 650 MG; Start 03/11/16 at 12: 30 Pantoprazole (Protonix Iv) 40 mg DAILY@06 IV Last administered on 03/12/16at 05 :42; Admin Dose 40 MG; Start 03/12/16 at 06:00 Labetalol HCl (Labetalol) 20 mg Q2H PRN IV SBP>160 Last administered on at 13:17; Admin Dose 20 MG; Start 03/12/16 at 13:30 JOB MG Mar 12, 2016 17:27
[2016-03-12] MEDS: ATORVASTATIN 40 MG TAB NGT SCH (20:53)
[2016-03-12] MEDS: INSULIN GLARGINE [LANtus] 3 ML PEN SC SCH (20:57)
[2016-03-13] VITALS (47 sets, daily range): BP systolic 88–130; BP diastolic 45–112; PULSE 79–145; RESP 14–25
[2016-03-13] MEDS: DILTIAZEM 90 MG TAB PO SCH ×4 (00:36→18:07)
[2016-03-13] MEDS: ACETAMINOPHEN 650MG/20.3ML CUP GTB PRN (00:36)
[2016-03-13] MEDS: INSULIN ASPART [NOVOLOG] 3 ML PEN SC SCH ×5 (00:45→17:00)
[2016-03-13] MEDS: ALBUTEROL HFA 8 GM INHALER INH SCH ×6 (01:43→20:36)
[2016-03-13] MEDS: IPRATROPIUM (HFA) 12.9 GM INHALER INH SCH ×6 (01:43→20:36)
[2016-03-13] MEDS: VANCOMYCIN 1 GM in NS 250 ML IVPB SCH ×2 (04:08→14:00)
[2016-03-13] MEDS: PROPOFOL 100 ML IV SCH ×3 (04:45→14:03)
[2016-03-13 05:40] LABS: BASOPHILS % 0.2 % (0.0-2.0); EOSINOPHILS # 0.1 10^3/ul (0.0-0.5); EOSINOPHILS % 1.3 % (0.0-7.0); HEMATOCRIT 34.1 % (37.0-47.0); HEMOGLOBIN 11.2 g/dl (12.0-16.0); LYMPHOCYTES # 1.4 10^3/ul (0.8-2.9); LYMPHOCYTES % 12.1 % (15.0-51.0); MEAN CORPUSCULAR HEMOGLOBIN 29.8 pg (29.0-33.0); MEAN CORPUSCULAR HGB CONC 32.9 g/dl (32.0-37.0); MEAN CORPUSCULAR VOLUME 90.5 fl (82.0-101.0); MEAN PLATELET VOLUME 8.6 fl (7.4-10.4); MONOCYTE # 1.1 10^3/ul (0.3-0.9); MONOCYTES % 9.7 % (0.0-11.0); NEUTROPHIL # 8.7 10^3/ul (1.6-7.5); NEUTROPHILS % 76.7 % (39.0-77.0); PLATELET COUNT 289 10^3/UL (140-440); RED BLOOD COUNT 3.77 10^6/ul (4.20-5.40); RED CELL DISTRIBUTION WIDTH 20.4 % (11.5-14.5); UNCORRECTED WBC 11.3 10^3/ul (4.8-10.8); WHITE BLOOD COUNT 11.3 10^3/ul (4.8-10.8)
[2016-03-13 05:51] LABS: CONDITION 1; LH ANALYZER COMMENTS 1
[2016-03-13 05:53] LABS: CREATININE 0.99 mg/dl (0.44-1.00)
[2016-03-13 05:54] LABS: CALCIUM 8.1 mg/dl (8.4-10.2); MAGNESIUM 2.3 mg/dl (1.7-2.5)
[2016-03-13 06:02] LABS: POTASSIUM 2.8 mmol/L (3.5-5.1)
[2016-03-13] MEDS: PANTOPRAZOLE 40 MG INJ IV SCH (06:39)
[2016-03-13] MEDS: BUMETANIDE 1 MG INJ IV SCH ×3 (06:40→18:07)
[2016-03-13] MEDS ORDERED: POTASSIUM CHLORIDE 250 ML IVPB ONE (07:30)
[2016-03-13] MEDS ORDERED: POTASSIUM CHLORIDE 50 ML IVPB ONE (07:30)
[2016-03-13] MEDS: SALMETEROL/FLUTICASONE 250/50 INHA INH SCH ×2 (08:12→22:12)
[2016-03-13] MEDS: ACETAZOLAMIDE 500 MG INJ IV SCH (08:12)
[2016-03-13] MEDS: SPIRONOLACTONE 25 MG TAB NGT SCH (08:12)
[2016-03-13] MEDS: APIXABAN 5 MG TABLET NGT SCH ×2 (08:12→22:12)
[2016-03-13] MEDS: CEFEPIME 1GM/50 ML (PMX) 50 ML IVPB SCH ×2 (08:12→22:27)
[2016-03-13 11:42] LABS: CANCER ANTIGEN 125 99.6 U/ml (0.0-35.0)
[2016-03-13 11:43] LABS: CARCINOEMBRYONIC ANTIGEN 3.5 ng/ml (0.0-5.0)
[2016-03-13 11:47] LABS: CANCER ANTIGEN 19-9 5.8 U/ml (0.0-37.0)
--- NOTE | 2016-03-13 13:19 | PN ---
Date/Time of Note Date/Time of Note DATE: 03/13/16 TIME: 13:17 Assessment/Plan VTE Prophylaxis VTE Prophylaxis Intervention: other Lines/Catheters IV Catheter Type (from Nrsg): Peripheral IV Assessment/Plan Chief Complaint/Hosp Course 1. Acute respiratory failure secondary to known left-sided pneumonia with associated left-sided pleural effusion and hypoventilation syndrome cont vent support, pulmonology following, failed CPAP trials, continue to try to wean off vent support Continue antibiotics, diuresis with Bumex 2. Atrial fibrillation with rapid ventricular response Continue diltiazem if blood pressure tolerates 3. Diabetes mellitus type 2-now controlled Continue subQ Insulin regimen 4. Hypokalemia-replete 5. Stable multinodular goiter. 6. Morbid obesity Continue to recommend lifestyle changes 7. Abdominal distention This is reportedly chronic for the patient but the distention appears to be getting worse, have ordered an ultrasound of the abdomen Prophylaxis: Eliquis Problems: Subjective 24 Hr Interval Summary Subjective hx not possible: pt non-verbal Exam/Review of Systems Vital Signs Vitals Vital Signs Date Time Temp Pulse Resp B/P Pulse Ox O2 Delivery O2 Flow Rate FiO2 03/13/16 13:00 115 16 106/81 95 Mechanical Ventilator 03/13/16 12:59 50 03/13/16 12:00 98.7 Intake and Output 03/12/16 03/12/16 03/13/16 15:00 23:00 07:00 Intake Total 95.78 ml 641.584 ml 356.848 ml Output Total 580 ml 765 ml 255 ml Balance -484.22 ml -123.416 ml 101.848 ml Exam Constitutional: non-verbal Respiratory: clear to auscultation Cardiovascular: regular rate and rhythm Gastrointestinal: distended, soft Musculoskeletal: nl extremities to inspection Results Result Diagram: 03/13/16 0415 03/13/16 0415 Results 24 hrs Laboratory Tests Test 03/12/16 14:00 03/12/16 18:17 03/12/16 20:55 03/13/16 00:39 Arterial Blood HCO3 39.5 H Arterial Blood Base Excess 10.1 H Arterial Blood Oxygen Saturation 88.2 L Joseph Test ACCEPTAB Arterial Blood Gas Puncture Site Right Radial Arterial Blood Carboxyhemoglobin 0.4 Arterial Blood Date Drawn 03/12/2016 2:00:10 PM Arterial Blood Methemoglobin 0.3 Arterial Blood pCO2 (Temp correct) 80.8 *H Arterial Blood pH (Temp corrected) 7.307 L Arterial Blood pO2 (Temp corrected) 61.0 L Blood Gas A-a O2 Differential 204.6 H Blood Gas Critical Value Read Back ZULMA NORWOOD Blood Gas Low PEEP Setting 5.0 Blood Gas Modality MASK - CPAP Blood Gas Notified Time 03/12/2016 2:20:53 PM Blood Gas Notified Whom CW Blood Gas Pressure Support 10 Blood Gas Specimen Source Blood arterial Blood Gas Temperature 37.0 Blood Gas Tidal Volume 323.0 FiO2 50.0 Oxyhemoglobin Percent 87.6 L Total Hemoglobin 12.6 Bedside Glucose 134 134 116 Test 03/13/16 04:15 03/13/16 04:16 03/13/16 05:34 03/13/16 08:14 Anion Gap 17 H Basophils # 0.0 Basophils % 0.2 Blood Morphology Comment Blood Urea Nitrogen 31 H Calcium Level 8.1 L Carbon Dioxide Level 35 H Chloride Level 97 Creatinine 0.99 Eosinophils # 0.1 Eosinophils % 1.3 Glucose Level 109 Hematocrit 34.1 L Hemoglobin 11.2 L Lymphocytes # 1.4 Lymphocytes % 12.1 L Magnesium Level 2.3 Mean Corpuscular Hemoglobin 29.8 Mean Corpuscular Hemoglobin Concent 32.9 Mean Corpuscular Volume 90.5 Mean Platelet Volume 8.6 Monocytes # 1.1 H Monocytes % 9.7 Neutrophils # 8.7 H Neutrophils % 76.7 Nucleated Red Blood Cells # 0.0 Nucleated Red Blood Cells % 0.0 Platelet Count 289 Potassium Level 2.8 *L Red Blood Count 3.77 L Red Cell Distribution Width 20.4 H Sodium Level 146 H White Blood Count 11.3 H CA 125 Antigen 99.6 H CA 19-9 Antigen 5.8 Carcinoembryonic Antigen 3.5 Bedside Glucose 117 125 Medications Medications Current Medications Cefepime HCl (Maxipime 1gm/50 ml (Pmx)) 50 ml @ 100 mls/hr Q12 IVPB Last administered on 03/13/16at 08:12; Admin Dose 100 MLS/HR; Start 03/06/16 at 21: 00 Salmeterol Xinafoate/ Fluticasone (Advair 250/50 Diskus) 1 inh BID INH Last administered on 03/08/16at 08:35; Admin Dose 1 INH; Start 03/06/16 at 21:00 Diltiazem HCl 90 mg 90 mg Q6 PO Last administered on 03/13/16at 06:40; Admin Dose 90 MG; Start 03/07/16 at 18:30 Propofol (Diprivan) 100 ml @ 3.816 mls/ hr Q12H IV Last administered on at 04:53; Admin Dose 15.264 MLS/HR; Start 03/08/16 at 10:00 Apixaban (Eliquis) 5 mg BID NGT Last administered on 03/13/16at 08:12; Admin Dose 5 MG; Start 03/08/16 at 10:50 Atorvastatin Calcium (Lipitor) 40 mg HS NGT Last administered on 03/12/16at 20: 53; Admin Dose 40 MG; Start 03/08/16 at 10:50 Spironolactone 12.5 mg 12.5 mg DAILY NGT Last administered on 03/13/16at 08:12 ; Admin Dose 12.5 MG; Start 03/08/16 at 10:51 Vancomycin HCl (Vancocin) 250 ml @ 125 mls/hr Q12H IVPB Last administered on 03/13/16at 04:08; Admin Dose 125 MLS/HR; Start 03/09/16 at 03:00 Insulin Glargine (Lantus) 22 unit HS SC Last administered on 03/12/16at 20:57; Admin Dose 22 UNIT; Start 03/08/16 at 21:00 Acetazolamide (Diamox) 500 mg DAILY IV Last administered on 03/13/16at 08:12; Admin Dose 500 MG; Start 03/09/16 at 18:30 Insulin Aspart (Novolog Insulin Pen) NOVOLOG *MODERATE* ALGORI... Q4 SC Last administered on 03/11/16at 22:42; Admin Dose 2 UNIT; Start 03/10/16 at 17:00 Miscellaneous Information 1 ea NOTE XX ; Start 03/10/16 at 14:30 Glucose (Glutose) 15 gm Q15M PRN PO DECREASED GLUCOSE; Start 03/10/16 at 14:30 Glucose (Glutose) 22.5 gm Q15M PRN PO DECREASED GLUCOSE; Start 03/10/16 at 14: 30 Dextrose (D50w Syringe) 25 ml Q15M PRN IV DECREASED GLUCOSE; Start 03/10/16 at 14:30 Dextrose (D50w Syringe) 50 ml Q15M PRN IV DECREASED GLUCOSE; Start 03/10/16 at 14:30 Glucagon (Glucagen) 1 mg Q15M PRN IM DECREASED GLUCOSE; Start 03/10/16 at 14: 30 Glucose (Glutose) 15 gm Q15M PRN BUCCAL DECREASED GLUCOSE; Start 03/10/16 at 14:30 Acetaminophen (Tylenol Liquid) 650 mg Q4H PRN GTB PAIN AND OR ELEVATED TEMP Last administered on 03/13/16at 00:36; Admin Dose 650 MG; Start 03/11/16 at 12: 30 Pantoprazole (Protonix Iv) 40 mg DAILY@06 IV Last administered on 03/13/16at 06 :39; Admin Dose 40 MG; Start 03/12/16 at 06:00 Labetalol HCl (Labetalol) 20 mg Q2H PRN IV SBP>160 Last administered on at 13:17; Admin Dose 20 MG; Start 03/12/16 at 13:30 JOB MG Mar 13, 2016 13:19
--- NOTE | 2016-03-13 13:58 | RADRPT ---
PROCEDURE: US Abdomen and Retroperitoneum. CLINICAL INDICATION: Abdominal pain. TECHNIQUE: Multiple real-time longitudinal and transverse images were acquired of the patient's ab domen and retroperitoneum utilizing a curved array transducer. COMPARISON: No prior studies are available for comparison. FINDINGS: The liver is mildly enlarged and normal in echogenicity. The liver has a normal smooth surface. The re is no focal hepatic lesion. Color Doppler and pulsed Doppler sonography demonstrate normal antegr shelly flow in the portal vein. Multiple gallstones are present in the gallbladder. There is no gallbladder wall thickening and the re is no fluid around the gallbladder. The bile ducts are normal with the common bile duct measuring 5.5 mm in diameter. The pancreas is partially seen and is unremarkable. There is no free fluid. The right kidney measures 12.6 x 5.8 x 6.3 cm and the left kidney is not visualized due to overlying bowel gas. There is a benign cyst medially in the right kidney measuring 2 cm. There is no solid right renal mass, hydronephrosis, or calculus. The spleen and abdominal aorta are not visualized due to overlying bowel gas. IMPRESSION: 1. Hepatomegaly. 2. Gallstones in the gallbladder. No evidence of cholecystitis. 3. Benign 2 cm right renal cyst. 4. Spleen, aorta, and left kidney not visualized due to overlying bowel gas. 5. Otherwise unremarkable study. RPTAT: QQ .Raymond Palacios MD, Date Time Electronically viewed and signed by .Raymond Palacios MD, on 03/13/2016 13:58 .R/
[2016-03-13] MEDS ORDERED: ONDANSETRON 4 MG INJ IV PRN (14:00)
--- NOTE | 2016-03-13 21:14 | CONS ---
Date/Time of Note Date/Time of Note DATE: 03/13/16 TIME: 21:12 Assessment/Plan Assessment/Plan Chief Complaint/Hosp Course Acute on chronic diastolic heart failure - echocardiogram 11/14/2015 showed LVEF 55%, mild diastolic dysfunction Paroxysmal atrial fibrillation - rapid ventricular rates Acute on chronic hypoxic respiratory failure - intubated Pneumonia - left pleural effusion also noted Chronic obstructive pulmonary disease exacerbation - on 4 liters home oxygen at baseline Hypertension Dyslipidemia Diabetes mellitus -continue Bumex 1mg IV BID, discontinue Diamox -continue diltiazem 90mg PO/NGT Q6hr -continue spironolactone 12.5mg daily -continue Eliquis 5mg BID -continue atorvastatin 40mg daily -replace potassium Problems: Consultation Date/Type/Reason Admit Date/Time Mar 06, 2016 at 15:11 Type of Consultation: Cardiology 24 HR Interval Summary Free Text/Dictation Did not tolerate CPAP trial earlier today. Now appears alert, on CPAP again. Exam/Review of Systems Vital Signs Vitals Vital Signs Date Time Temp Pulse Resp B/P Pulse Ox O2 Delivery O2 Flow Rate FiO2 03/13/16 18:00 135 20 128/78 92 Mechanical Ventilator 03/13/16 17:07 50 03/13/16 16:00 98.9 Intake and Output 03/12/16 03/12/16 03/13/16 15:00 23:00 07:00 Intake Total 95.78 ml 641.584 ml 372.112 ml Output Total 580 ml 765 ml 255 ml Balance -484.22 ml -123.416 ml 117.112 ml Exam Constitutional: intubated Psych: intubated Head: atraumatic, normocephalic Respiratory: clear to auscultation, No crackles/rales Cardiovascular: No regular rate and rhythm (IRIR) Gastrointestinal: soft Extremities: normal pulses Results Result Diagram: 03/13/16 0415 03/13/16 0415 Results 24 hrs Laboratory Tests Test 03/13/16 00:39 03/13/16 04:15 03/13/16 04:16 03/13/16 05:34 Bedside Glucose 116 117 Anion Gap 17 H Basophils # 0.0 Basophils % 0.2 Blood Morphology Comment Blood Urea Nitrogen 31 H Calcium Level 8.1 L Carbon Dioxide Level 35 H Chloride Level 97 Creatinine 0.99 Eosinophils # 0.1 Eosinophils % 1.3 Glucose Level 109 Hematocrit 34.1 L Hemoglobin 11.2 L Lymphocytes # 1.4 Lymphocytes % 12.1 L Magnesium Level 2.3 Mean Corpuscular Hemoglobin 29.8 Mean Corpuscular Hemoglobin Concent 32.9 Mean Corpuscular Volume 90.5 Mean Platelet Volume 8.6 Monocytes # 1.1 H Monocytes % 9.7 Neutrophils # 8.7 H Neutrophils % 76.7 Nucleated Red Blood Cells # 0.0 Nucleated Red Blood Cells % 0.0 Platelet Count 289 Potassium Level 2.8 *L Red Blood Count 3.77 L Red Cell Distribution Width 20.4 H Sodium Level 146 H White Blood Count 11.3 H CA 125 Antigen 99.6 H CA 19-9 Antigen 5.8 Carcinoembryonic Antigen 3.5 Test 03/13/16 08:14 03/13/16 14:02 Bedside Glucose 125 120 Medications Medications Current Medications Cefepime HCl (Maxipime 1gm/50 ml (Pmx)) 50 ml @ 100 mls/hr Q12 IVPB Last administered on 03/13/16at 08:12; Admin Dose 100 MLS/HR; Start 03/06/16 at 21: 00 Salmeterol Xinafoate/ Fluticasone (Advair 250/50 Diskus) 1 inh BID INH Last administered on 03/08/16at 08:35; Admin Dose 1 INH; Start 03/06/16 at 21:00 Diltiazem HCl 90 mg 90 mg Q6 PO Last administered on 03/13/16 18:07; Admin Dose 90 MG; Start 03/07/16 at 18:30 Propofol (Diprivan) 100 ml @ 3.816 mls/ hr Q12H IV Last administered on at 14:03; Admin Dose 15.264 MLS/HR; Start 03/08/16 at 10:00 Apixaban (Eliquis) 5 mg BID NGT Last administered on 03/13/16 08:12; Admin Dose 5 MG; Start 03/08/16 at 10:50 Atorvastatin Calcium (Lipitor) 40 mg HS NGT Last administered on 03/12/16at 20: 53; Admin Dose 40 MG; Start 03/08/16 at 10:50 Spironolactone 12.5 mg 12.5 mg DAILY NGT Last administered on 12/25/16at 08:12 ; Admin Dose 12.5 MG; Start 03/08/16 at 10:51 Vancomycin HCl (Vancocin) 250 ml @ 125 mls/hr Q12H IVPB Last administered on 03/13/16at 14:00; Admin Dose 125 MLS/HR; Start 03/09/16 at 03:00 Insulin Glargine (Lantus) 22 unit HS SC Last administered on 03/12/16at 20:57; Admin Dose 22 UNIT; Start 03/08/16 at 21:00 Acetazolamide (Diamox) 500 mg DAILY IV Last administered on 03/13/16at 08:12; Admin Dose 500 MG; Start 03/09/16 at 18:30 Insulin Aspart (Novolog Insulin Pen) NOVOLOG *MODERATE* ALGORI... Q4 SC Last administered on 03/11/16at 22:42; Admin Dose 2 UNIT; Start 03/10/16 at 17:00 Miscellaneous Information 1 ea NOTE XX ; Start 03/10/16 at 14:30 Glucose (Glutose) 15 gm Q15M PRN PO DECREASED GLUCOSE; Start 03/10/16 at 14:30 Glucose (Glutose) 22.5 gm Q15M PRN PO DECREASED GLUCOSE; Start 03/10/16 at 14: 30 Dextrose (D50w Syringe) 25 ml Q15M PRN IV DECREASED GLUCOSE; Start 03/10/16 at 14:30 Dextrose (D50w Syringe) 50 ml Q15M PRN IV DECREASED GLUCOSE; Start 03/10/16 at 14:30 Glucagon (Glucagen) 1 mg Q15M PRN IM DECREASED GLUCOSE; Start 03/10/16 at 14: 30 Glucose (Glutose) 15 gm Q15M PRN BUCCAL DECREASED GLUCOSE; Start 03/10/16 at 14:30 Acetaminophen (Tylenol Liquid) 650 mg Q4H PRN GTB PAIN AND OR ELEVATED TEMP Last administered on 03/13/16at 00:36; Admin Dose 650 MG; Start 03/11/16 at 12: 30 Pantoprazole (Protonix Iv) 40 mg DAILY@06 IV Last administered on 03/13/16at 06 :39; Admin Dose 40 MG; Start 03/12/16 at 06:00 Labetalol HCl (Labetalol) 20 mg Q2H PRN IV SBP>160 Last administered on at 13:17; Admin Dose 20 MG; Start 03/12/16 at 13:30 Ondansetron HCl (Zofran Inj) 4 mg Q6H PRN IV NAUSEA AND/OR VOMITING Last administered on 03/13/16at 14:00; Admin Dose 4 MG; Start 03/13/16 at 14:00 Simethicone (Mylicon) 160 mg Q6H NGT Last administered on 03/13/16at 14:40; Admin Dose 160 MG; Start 03/13/16 at 15:00; Stop 03/16/16 at 14:59 CAROLA WHALEY MD Mar 13, 2016 21:14
[2016-03-13] MEDS: INSULIN GLARGINE [LANtus] 3 ML PEN SC SCH (22:11)
[2016-03-13] MEDS: ATORVASTATIN 40 MG TAB NGT SCH (22:11)
[2016-03-14] VITALS (35 sets, daily range): BP systolic 75–139; BP diastolic 46–102; PULSE 76–130; RESP 13–28
[2016-03-14] MEDS: INSULIN ASPART [NOVOLOG] 3 ML PEN SC SCH ×5 (01:17→23:44)
[2016-03-14] MEDS: DILTIAZEM 90 MG TAB PO SCH ×5 (01:18→23:52)
[2016-03-14] MEDS: IPRATROPIUM (HFA) 12.9 GM INHALER INH SCH ×6 (01:43→21:19)
[2016-03-14] MEDS: ALBUTEROL HFA 8 GM INHALER INH SCH ×6 (01:43→21:19)
[2016-03-14] MEDS: VANCOMYCIN 1 GM in NS 250 ML IVPB SCH ×2 (04:13→16:21)
[2016-03-14 04:52] LABS: BASOPHILS % 0.3 % (0.0-2.0); EOSINOPHILS # 0.2 10^3/ul (0.0-0.5); EOSINOPHILS % 1.6 % (0.0-7.0); HEMATOCRIT 35.5 % (37.0-47.0); HEMOGLOBIN 11.2 g/dl (12.0-16.0); LYMPHOCYTES # 1.1 10^3/ul (0.8-2.9); LYMPHOCYTES % 9.7 % (15.0-51.0); MEAN CORPUSCULAR HEMOGLOBIN 28.4 pg (29.0-33.0); MEAN CORPUSCULAR HGB CONC 31.5 g/dl (32.0-37.0); MEAN CORPUSCULAR VOLUME 90.4 fl (82.0-101.0); MEAN PLATELET VOLUME 7.7 fl (7.4-10.4); MONOCYTE # 0.8 10^3/ul (0.3-0.9); MONOCYTES % 7.2 % (0.0-11.0); NEUTROPHIL # 9.3 10^3/ul (1.6-7.5); NEUTROPHILS % 81.2 % (39.0-77.0); PLATELET COUNT 258 10^3/UL (140-440); RED BLOOD COUNT 3.93 10^6/ul (4.20-5.40); UNCORRECTED WBC 11.5 10^3/ul (4.8-10.8); WHITE BLOOD COUNT 11.5 10^3/ul (4.8-10.8)
[2016-03-14 05:02] LABS: CALCIUM 8.3 mg/dl (8.4-10.2); CREATININE 0.88 mg/dl (0.44-1.00)
[2016-03-14 05:03] LABS: POTASSIUM 2.9 mmol/L (3.5-5.1)
[2016-03-14 05:09] LABS: CONDITION 1; LH ANALYZER COMMENTS 1
[2016-03-14] MEDS ORDERED: POTASSIUM CHLORIDE 50 ML IVPB ONE ×3 (05:30→19:00)
[2016-03-14] MEDS ORDERED: POTASSIUM CHLORIDE 250 ML IVPB ONE ×4 (05:30→21:00)
[2016-03-14] MEDS: PANTOPRAZOLE 40 MG INJ IV SCH (05:47)
[2016-03-14] MEDS: BUMETANIDE 1 MG INJ IV SCH ×2 (05:51→17:15)
--- NOTE | 2016-03-14 07:13 | RADRPT ---
PROCEDURE: XR Chest. CLINICAL INDICATION: Pneumonia TECHNIQUE: Portable single view of the chest COMPARISON: 03/12 FINDINGS: Since the prior study, there has been no significant interval change in the appearance of the heart or lungs or position of tubes and lines allowing for slight differences in technique and positioning . Tubes and lines remain in good position. Cardiomegaly and extensive bilateral lung infiltrates or edema again seen. Probable underlying effusions. IMPRESSION: No significant interval change. RPTAT: [facility]BE Physician Brad Date Time Electronically viewed and signed by Angela Coronado Physician on 03/14/2016 07:13 LE/
[2016-03-14 07:16] LABS: AADO2 Arterial 222.1 mmHg (7.0-24.0); Allen Test ACCEPTAB; Arterial Base Excess 8.8 mmol/L (-3.0-3); Arterial COHb 0.2 % (0.0-3.0); Arterial Fraction of Oxyhgb 93.3 % (93.0-99.0); Arterial HCO3 35.3 mmol/L (22.0-26.0); Arterial MetHb 0.1 % (0.0-1.5); Arterial Total Hemglobin 12.1 g/dl (12.0-18.0); MODE VENT - AC
[2016-03-14] MEDS: APIXABAN 5 MG TABLET NGT SCH ×2 (08:43→21:50)
[2016-03-14] MEDS: CEFEPIME 1GM/50 ML (PMX) 50 ML IVPB SCH (08:43)
[2016-03-14] MEDS: SPIRONOLACTONE 25 MG TAB NGT SCH (08:44)
[2016-03-14] MEDS: SALMETEROL/FLUTICASONE 250/50 INHA INH SCH ×2 (09:00→19:43)
[2016-03-14] MEDS: PROPOFOL 100 ML IV SCH ×2 (09:55→19:44)
[2016-03-14] MEDS ORDERED: VANCO TROUGH AT XX ONE (14:00)
[2016-03-14 18:44] LABS: CREATININE 0.68 mg/dl (0.44-1.00)
[2016-03-14 18:45] LABS: CALCIUM 6.6 mg/dl (8.4-10.2)
[2016-03-14 18:56] LABS: POTASSIUM 2.6 mmol/L (3.5-5.1)
--- NOTE | 2016-03-14 19:06 | PN ---
Date/Time of Note Date/Time of Note DATE: 03/14/16 TIME: 19:03 Assessment/Plan VTE Prophylaxis VTE Prophylaxis Intervention: LMWH Lines/Catheters IV Catheter Type (from [facility]): [facility] Urinary Cath still in place: Yes Assessment/Plan Chief Complaint/Hosp Course A/P Ac Resp Failure; mod stable; cont vent CHF; mod stable; cont diuretics Htn OHS/MICHAEL? M Obesity A Fib rvr COPD Chr Resp failure; home o2 4l Ftt Anemia Abn Ca 125 Thyroid nodule Adrenal nodule? Fever Problems: Subjective 24 Hr Interval Summary Free Text/Dictation S= remains on vent. Exam/Review of Systems Vital Signs Vitals Vital Signs Date Time Temp Pulse Resp B/P Pulse Ox O2 Delivery O2 Flow Rate FiO2 03/14/16 18:00 91 122/58 96 Mechanical Ventilator 03/14/16 17:00 17 03/14/16 16:00 99.1 03/14/16 13:03 50 Intake and Output 03/13/16 03/13/16 03/14/16 15:00 23:00 07:00 Intake Total 691.584 ml 50 ml 250 ml Output Total 395 ml 745 ml 250 ml Balance 296.584 ml -695 ml 0 ml Exam Respiratory: diminished breath sounds Cardiovascular: irregular rhythm (no m r g) Gastrointestinal: non-tender (obese; no r r g), soft Extremities: edema (mild) Results Result Diagram: 03/14/16 0440 03/14/16 1736 Results 24 hrs Laboratory Tests Test 03/13/16 22:09 03/14/16 01:17 03/14/16 04:40 03/14/16 05:46 Bedside Glucose 123 101 115 Anion Gap 15 Basophils # 0.0 Basophils % 0.3 Blood Morphology Comment Blood Urea Nitrogen 31 H Calcium Level 8.3 L Carbon Dioxide Level 35 H Chloride Level 102 Creatinine 0.88 Eosinophils # 0.2 Eosinophils % 1.6 Glucose Level 114 Hematocrit 35.5 L Hemoglobin 11.2 L Lymphocytes # 1.1 Lymphocytes % 9.7 L Mean Corpuscular Hemoglobin 28.4 L Mean Corpuscular Hemoglobin Concent 31.5 L Mean Corpuscular Volume 90.4 Mean Platelet Volume 7.7 Monocytes # 0.8 Monocytes % 7.2 Neutrophils # 9.3 H Neutrophils % 81.2 H Nucleated Red Blood Cells # 0.0 Nucleated Red Blood Cells % 0.0 Platelet Count 258 Potassium Level 2.9 *L Red Blood Count 3.93 L Red Cell Distribution Width 20.0 H Sodium Level 149 H White Blood Count 11.5 H Test 03/14/16 07:00 03/14/16 12:11 03/14/16 14:17 03/14/16 17:17 Arterial Blood HCO3 35.3 H Arterial Blood Base Excess 8.8 H Arterial Blood Oxygen Saturation 93.6 L Joseph Test ACCEPTAB Arterial Blood Gas Puncture Site Right Radial Arterial Blood Carboxyhemoglobin 0.2 Arterial Blood Date Drawn 03/14/2016 7:00:17 AM Arterial Blood Methemoglobin 0.1 Arterial Blood pCO2 (Temp correct) 57.8 H Arterial Blood pH (Temp corrected) 7.404 Arterial Blood pO2 (Temp corrected) 69.4 L Blood Gas A-a O2 Differential 222.1 H Blood Gas Actual Respiration Rate 14 Blood Gas Low PEEP Setting 5.0 Blood Gas Modality VENT - AC Blood Gas Notified Time 03/14/2016 7:16:20 AM Blood Gas Notified Whom UP Blood Gas Respiration Rate 14.0 Blood Gas Specimen Source Blood arterial Blood Gas Temperature 37.0 Blood Gas Tidal Volume 500.0 FiO2 50.0 Oxyhemoglobin Percent 93.3 Total Hemoglobin 12.1 Bedside Glucose 112 109 Vancomycin Level Trough 14.8 Test 03/14/16 17:36 Anion Gap 12 Blood Urea Nitrogen 25 H Calcium Level 6.6 L Carbon Dioxide Level 30 Chloride Level 112 H Creatinine 0.68 Glucose Level 89 Potassium Level 2.6 *L Sodium Level 151 H Medications Medications Current Medications Cefepime HCl (Maxipime 1gm/50 ml (Pmx)) 50 ml @ 100 mls/hr Q12 IVPB Last administered on 03/14/16at 08:43; Admin Dose 100 MLS/HR; Start 03/06/16 at 21: 00 Salmeterol Xinafoate/ Fluticasone (Advair 250/50 Diskus) 1 inh BID INH Last administered on 03/08/16at 08:35; Admin Dose 1 INH; Start 03/06/16 at 21:00 Diltiazem HCl 90 mg 90 mg Q6 PO Last administered on 03/14/16at 17:16; Admin Dose 90 MG; Start 03/07/16 at 18:30 Propofol (Diprivan) 100 ml @ 3.816 mls/ hr Q12H IV Last administered on at 14:03; Admin Dose 15.264 MLS/HR; Start 03/08/16 at 10:00 Apixaban (Eliquis) 5 mg BID NGT Last administered on 03/14/16at 08:43; Admin Dose 5 MG; Start 03/08/16 at 10:50 Atorvastatin Calcium (Lipitor) 40 mg HS NGT Last administered on 03/13/16at 22: 11; Admin Dose 40 MG; Start 03/08/16 at 10:50 Spironolactone 12.5 mg 12.5 mg DAILY NGT Last administered on 03/14/16at 08:44 ; Admin Dose 12.5 MG; Start 03/08/16 at 10:51 Vancomycin HCl (Vancocin) 250 ml @ 125 mls/hr Q12H IVPB Last administered on 03/14/16at 16:21; Admin Dose 125 MLS/HR; Start 03/09/16 at 03:00 Insulin Glargine (Lantus) 22 unit HS SC Last administered on 03/13/16at 22:11; Admin Dose 22 UNIT; Start 03/08/16 at 21:00 Miscellaneous Information 1 ea NOTE XX ; Start 03/10/16 at 14:30 Glucose (Glutose) 15 gm Q15M PRN PO DECREASED GLUCOSE; Start 03/10/16 at 14:30 Glucose (Glutose) 22.5 gm Q15M PRN PO DECREASED GLUCOSE; Start 03/10/16 at 14: 30 Dextrose (D50w Syringe) 25 ml Q15M PRN IV DECREASED GLUCOSE; Start 03/10/16 at 14:30 Dextrose (D50w Syringe) 50 ml Q15M PRN IV DECREASED GLUCOSE; Start 03/10/16 at 14:30 Glucagon (Glucagen) 1 mg Q15M PRN IM DECREASED GLUCOSE; Start 03/10/16 at 14: 30 Glucose (Glutose) 15 gm Q15M PRN BUCCAL DECREASED GLUCOSE; Start 03/10/16 at 14:30 Acetaminophen (Tylenol Liquid) 650 mg Q4H PRN GTB PAIN AND OR ELEVATED TEMP Last administered on 03/13/16at 00:36; Admin Dose 650 MG; Start 03/11/16 at 12: 30 Pantoprazole (Protonix Iv) 40 mg DAILY@06 IV Last administered on 03/14/16at 05 :47; Admin Dose 40 MG; Start 03/12/16 at 06:00 Labetalol HCl (Labetalol) 20 mg Q2H PRN IV SBP>160 Last administered on at 13:17; Admin Dose 20 MG; Start 03/12/16 at 13:30 Ondansetron HCl (Zofran Inj) 4 mg Q6H PRN IV NAUSEA AND/OR VOMITING Last administered on 03/13/16at 14:00; Admin Dose 4 MG; Start 03/13/16 at 14:00 Simethicone (Mylicon) 160 mg Q6H NGT Last administered on 03/14/16at 17:15; Admin Dose 160 MG; Start 03/13/16 at 15:00; Stop 03/16/16 at 14:59 Insulin Aspart NOVOLOG *MODERATE* ALGORI... Q6 SC ; Start 03/14/16 at 00:00 Potassium Chloride 250 ml @ 62.5 mls/hr ONCE ONCE IVPB ; Start 03/14/16 at 19 :30; Stop 03/14/16 at 23:29 Potassium Chloride (KCl 20 MEQ/50 ML SW) 50 ml @ 25 mls/hr ONCE ONCE IVPB ; Start 03/14/16 at 19:00; Stop 03/14/16 at 20:59 ROMI RILEY MD Mar 14, 2016 19:06
[2016-03-14] MEDS: ALTEPLASE (CATHFLO) 2 MG INJ CATHETER PRN ×2 (19:59→22:06)
--- NOTE | 2016-03-14 20:11 | CONS ---
Date/Time of Note Date/Time of Note DATE: 03/14/16 TIME: 20:10 Assessment/Plan Assessment/Plan Chief Complaint/Hosp Course Acute on chronic diastolic heart failure - echocardiogram 11/14/2015 showed LVEF 55%, mild diastolic dysfunction Paroxysmal atrial fibrillation - rapid ventricular rates Acute on chronic hypoxic respiratory failure - intubated Pneumonia - left pleural effusion also noted Chronic obstructive pulmonary disease exacerbation - on 4 liters home oxygen at baseline Hypertension Dyslipidemia Diabetes mellitus -continue Bumex 1mg IV BID, status post Diamox -continue diltiazem 90mg PO/NGT Q6hr -continue spironolactone 12.5mg daily -continue Eliquis 5mg BID -continue atorvastatin 40mg daily -replace potassium Problems: Consultation Date/Type/Reason Admit Date/Time Mar 06, 2016 at 15:11 Type of Consultation: Cardiology 24 HR Interval Summary Free Text/Dictation Remains intubated, on SIMV. Exam/Review of Systems Vital Signs Vitals Vital Signs Date Time Temp Pulse Resp B/P Pulse Ox O2 Delivery O2 Flow Rate FiO2 03/14/16 18:00 91 122/58 96 Mechanical Ventilator 03/14/16 17:00 17 03/14/16 16:46 50 03/14/16 16:00 99.1 Intake and Output 03/13/16 03/13/16 03/14/16 15:00 23:00 07:00 Intake Total 691.584 ml 50 ml 250 ml Output Total 395 ml 745 ml 250 ml Balance 296.584 ml -695 ml 0 ml Exam Constitutional: intubated Psych: intubated Head: atraumatic, normocephalic Respiratory: clear to auscultation, No crackles/rales Cardiovascular: No regular rate and rhythm (IRIR) Gastrointestinal: soft Extremities: normal pulses Results Result Diagram: 03/14/16 0440 03/14/16 1736 Results 24 hrs Laboratory Tests Test 03/13/16 22:09 03/14/16 01:17 03/14/16 04:40 03/14/16 05:46 Bedside Glucose 123 101 115 Anion Gap 15 Basophils # 0.0 Basophils % 0.3 Blood Morphology Comment Blood Urea Nitrogen 31 H Calcium Level 8.3 L Carbon Dioxide Level 35 H Chloride Level 102 Creatinine 0.88 Eosinophils # 0.2 Eosinophils % 1.6 Glucose Level 114 Hematocrit 35.5 L Hemoglobin 11.2 L Lymphocytes # 1.1 Lymphocytes % 9.7 L Mean Corpuscular Hemoglobin 28.4 L Mean Corpuscular Hemoglobin Concent 31.5 L Mean Corpuscular Volume 90.4 Mean Platelet Volume 7.7 Monocytes # 0.8 Monocytes % 7.2 Neutrophils # 9.3 H Neutrophils % 81.2 H Nucleated Red Blood Cells # 0.0 Nucleated Red Blood Cells % 0.0 Platelet Count 258 Potassium Level 2.9 *L Red Blood Count 3.93 L Red Cell Distribution Width 20.0 H Sodium Level 149 H White Blood Count 11.5 H Test 03/14/16 07:00 03/14/16 12:11 03/14/16 14:17 03/14/16 17:17 Arterial Blood HCO3 35.3 H Arterial Blood Base Excess 8.8 H Arterial Blood Oxygen Saturation 93.6 L Joseph Test ACCEPTAB Arterial Blood Gas Puncture Site Right Radial Arterial Blood Carboxyhemoglobin 0.2 Arterial Blood Date Drawn 03/14/2016 7:00:17 AM Arterial Blood Methemoglobin 0.1 Arterial Blood pCO2 (Temp correct) 57.8 H Arterial Blood pH (Temp corrected) 7.404 Arterial Blood pO2 (Temp corrected) 69.4 L Blood Gas A-a O2 Differential 222.1 H Blood Gas Actual Respiration Rate 14 Blood Gas Low PEEP Setting 5.0 Blood Gas Modality VENT - AC Blood Gas Notified Time 03/14/2016 7:16:20 AM Blood Gas Notified Whom UP Blood Gas Respiration Rate 14.0 Blood Gas Specimen Source Blood arterial Blood Gas Temperature 37.0 Blood Gas Tidal Volume 500.0 FiO2 50.0 Oxyhemoglobin Percent 93.3 Total Hemoglobin 12.1 Bedside Glucose 112 109 Vancomycin Level Trough 14.8 Test 03/14/16 17:36 Anion Gap 12 Blood Urea Nitrogen 25 H Calcium Level 6.6 L Carbon Dioxide Level 30 Chloride Level 112 H Creatinine 0.68 Glucose Level 89 Potassium Level 2.6 *L Sodium Level 151 H Medications Medications Current Medications Salmeterol Xinafoate/ Fluticasone (Advair 250/50 Diskus) 1 inh BID INH Last administered on 03/08/16at 08:35; Admin Dose 1 INH; Start 03/06/16 at 21:00 Diltiazem HCl 90 mg 90 mg Q6 PO Last administered on 03/14/16at 17:16; Admin Dose 90 MG; Start 03/07/16 at 18:30 Propofol (Diprivan) 100 ml @ 3.816 mls/ hr Q12H IV Last administered on at 14:03; Admin Dose 15.264 MLS/HR; Start 03/08/16 at 10:00 Apixaban (Eliquis) 5 mg BID NGT Last administered on 03/14/16at 08:43; Admin Dose 5 MG; Start 03/08/16 at 10:50 Atorvastatin Calcium (Lipitor) 40 mg HS NGT Last administered on 03/13/16at 22: 11; Admin Dose 40 MG; Start 03/08/16 at 10:50 Spironolactone 12.5 mg 12.5 mg DAILY NGT Last administered on 03/14/16at 08:44 ; Admin Dose 12.5 MG; Start 03/08/16 at 10:51 Vancomycin HCl (Vancocin) 250 ml @ 125 mls/hr Q12H IVPB Last administered on 03/14/16at 16:21; Admin Dose 125 MLS/HR; Start 03/09/16 at 03:00 Insulin Glargine (Lantus) 22 unit HS SC Last administered on 03/13/16at 22:11; Admin Dose 22 UNIT; Start 03/08/16 at 21:00 Miscellaneous Information 1 ea NOTE XX ; Start 03/10/16 at 14:30 Glucose (Glutose) 15 gm Q15M PRN PO DECREASED GLUCOSE; Start 03/10/16 at 14:30 Glucose (Glutose) 22.5 gm Q15M PRN PO DECREASED GLUCOSE; Start 03/10/16 at 14: 30 Dextrose (D50w Syringe) 25 ml Q15M PRN IV DECREASED GLUCOSE; Start 03/10/16 at 14:30 Dextrose (D50w Syringe) 50 ml Q15M PRN IV DECREASED GLUCOSE; Start 03/10/16 at 14:30 Glucagon (Glucagen) 1 mg Q15M PRN IM DECREASED GLUCOSE; Start 03/10/16 at 14: 30 Glucose (Glutose) 15 gm Q15M PRN BUCCAL DECREASED GLUCOSE; Start 03/10/16 at 14:30 Acetaminophen (Tylenol Liquid) 650 mg Q4H PRN GTB PAIN AND OR ELEVATED TEMP Last administered on 03/13/16at 00:36; Admin Dose 650 MG; Start 03/11/16 at 12: 30 Pantoprazole (Protonix Iv) 40 mg DAILY@06 IV Last administered on 03/14/16at 05 :47; Admin Dose 40 MG; Start 03/12/16 at 06:00 Labetalol HCl (Labetalol) 20 mg Q2H PRN IV SBP>160 Last administered on at 13:17; Admin Dose 20 MG; Start 03/12/16 at 13:30 Ondansetron HCl (Zofran Inj) 4 mg Q6H PRN IV NAUSEA AND/OR VOMITING Last administered on 03/13/16at 14:00; Admin Dose 4 MG; Start 03/13/16 at 14:00 Simethicone (Mylicon) 160 mg Q6H NGT Last administered on 03/14/16at 17:15; Admin Dose 160 MG; Start 03/13/16 at 15:00; Stop 03/16/16 at 14:59 Insulin Aspart NOVOLOG *MODERATE* ALGORI... Q6 SC ; Start 03/14/16 at 00:00 Potassium Chloride 50 ml @ 25 mls/hr ONCE ONCE IVPB ; Start 03/14/16 at 19:00 ; Stop 03/14/16 at 20:59 Potassium Chloride (KCl 40 MEQ/250 ML NS) 250 ml @ 62.5 mls/hr ONCE ONCE IVPB Last administered on 03/14/16at 19:35; Admin Dose 62.5 MLS/HR; Start at 21:00; Stop 03/15/16 at 00:59 Lactobacillus Acidophilus/ Rhamnosus (Culturelle) 1 cap BID NGT ; Start at 21:00 Metronidazole (Flagyl) 500 mg Q8 NGT ; Start 03/14/16 at 22:00 CAROLA WHALEY MD Mar 14, 2016 20:10
[2016-03-14] MEDS: metroNIDAZOLE 500 MG TAB NGT SCH (21:50)
[2016-03-14] MEDS: ATORVASTATIN 40 MG TAB NGT SCH (21:50)
[2016-03-14] MEDS: LACTOBACILLUS RHAMNOSUS CAP NGT SCH (21:50)
[2016-03-14] MEDS: INSULIN GLARGINE [LANtus] 3 ML PEN SC SCH (21:55)
[2016-03-14] MEDS ORDERED: POTASSIUM CHLORIDE 50 ML IVPB SCH (23:45)
[2016-03-15] VITALS (36 sets, daily range): BP systolic 100–141; BP diastolic 60–90; PULSE 83–129; RESP 10–24
[2016-03-15] MEDS: ALTEPLASE (CATHFLO) 2 MG INJ CATHETER PRN (00:11)
[2016-03-15] MEDS: IPRATROPIUM (HFA) 12.9 GM INHALER INH SCH ×6 (01:08→21:05)
[2016-03-15] MEDS: ALBUTEROL HFA 8 GM INHALER INH SCH ×6 (01:09→21:05)
[2016-03-15] MEDS: VANCOMYCIN 1 GM in NS 250 ML IVPB SCH ×2 (02:28→16:18)
[2016-03-15 05:46] LABS: INR 1.25; PROTIME 15.8 Sec (12.2-14.2); PT RATIO 1.2
[2016-03-15 05:50] LABS: ALBUMIN 3.2 g/dl (3.3-4.9)
[2016-03-15 05:51] LABS: POTASSIUM 3.3 mmol/L (3.5-5.1)
[2016-03-15 05:53] LABS: ALBUMIN/GLOBULIN RATIO 0.96; BILIRUBIN,INDIRECT 0.2 mg/dl (0-1.1); BILIRUBIN,TOTAL 0.2 mg/dl (0.2-1.3); CREATININE 0.85 mg/dl (0.44-1.00); TOTAL PROTEIN 6.5 g/dl (6.1-8.1)
[2016-03-15 05:54] LABS: CALCIUM 8.5 mg/dl (8.4-10.2); MAGNESIUM 2.3 mg/dl (1.7-2.5); PHOSPHORUS 2.4 mg/dl (2.5-4.9)
[2016-03-15 05:57] LABS: EOSINOPHILS # 0.2 10^3/ul (0.0-0.5); EOSINOPHILS % 1.6 % (0.0-7.0); HEMATOCRIT 35.9 % (37.0-47.0); HEMOGLOBIN 11.3 g/dl (12.0-16.0); LYMPHOCYTES # 1.2 10^3/ul (0.8-2.9); LYMPHOCYTES % 11.6 % (15.0-51.0); MEAN CORPUSCULAR HEMOGLOBIN 28.7 pg (29.0-33.0); MEAN CORPUSCULAR HGB CONC 31.6 g/dl (32.0-37.0); MEAN CORPUSCULAR VOLUME 90.9 fl (82.0-101.0); MEAN PLATELET VOLUME 8.1 fl (7.4-10.4); MONOCYTE # 0.8 10^3/ul (0.3-0.9); MONOCYTES % 7.5 % (0.0-11.0); NEUTROPHILS % 79.3 % (39.0-77.0); PLATELET COUNT 275 10^3/UL (140-440); RED BLOOD COUNT 3.95 10^6/ul (4.20-5.40); RED CELL DISTRIBUTION WIDTH 19.8 % (11.5-14.5); UNCORRECTED WBC 10.1 10^3/ul (4.8-10.8); WHITE BLOOD COUNT 10.1 10^3/ul (4.8-10.8)
[2016-03-15] MEDS: INSULIN ASPART [NOVOLOG] 3 ML PEN SC SCH ×4 (06:00→23:43)
[2016-03-15 06:10] LABS: CONDITION 1; LH ANALYZER COMMENTS 1
[2016-03-15] MEDS: PANTOPRAZOLE 40 MG INJ IV SCH (06:28)
[2016-03-15] MEDS: BUMETANIDE 1 MG INJ IV SCH (06:29)
[2016-03-15] MEDS: DILTIAZEM 90 MG TAB PO SCH ×4 (06:29→23:39)
[2016-03-15] MEDS: metroNIDAZOLE 500 MG TAB NGT SCH ×3 (06:29→23:39)
[2016-03-15 07:47] LABS: AADO2 Arterial 228.3 mmHg (7.0-24.0); Allen Test ACCEPTAB; Arterial Base Excess 5.9 mmol/L (-3.0-3); Arterial COHb 0.2 % (0.0-3.0); Arterial Fraction of Oxyhgb 94.5 % (93.0-99.0); Arterial HCO3 31.2 mmol/L (22.0-26.0); Arterial MetHb 0.1 % (0.0-1.5); Arterial Total Hemglobin 12.9 g/dl (12.0-18.0); Blood Gas PS 15; MODE VENT - SIMV
--- NOTE | 2016-03-15 08:35 | RADRPT ---
PROCEDURE: Chest Radiograph. CLINICAL INDICATION: CHF. Pneumonia. TECHNIQUE: Single frontal chest radiograph. COMPARISON: Chest radiograph 03/14/2016 FINDINGS: An endotracheal tube remains in place with distal tip approximately 3.0 cm above the toni. Nasoga stric tube is coursing below the level of the diaphragm, presumably within the stomach. A right upp er extremity PICC remains in place with distal tip in the region of the cavoatrial junction. The pa tient is rotated. Heart size is poorly evaluated but appears enlarged. Atherosclerotic calcificati ons are present . There is stable hazy opacities throughout the bilateral lung solis consistent wi th edema or infiltrates, unchanged in distribution and extent. Apparent improved aeration of the right lung is likely related to differences in technique. Small bilateral pleural effusions are lik annia present.. IMPRESSION: 1. Stable radiographic appearance of chest compared to 03/14/2016. RPTAT: KK .Howard Murphy MD, MD Date Time Electronically viewed and signed by .Howard Murphy MD, MD on 03/15/2016 08:34 .B/
[2016-03-15] MEDS: SALMETEROL/FLUTICASONE 250/50 INHA INH SCH ×2 (08:54→20:01)
[2016-03-15] MEDS: PROPOFOL 100 ML IV SCH ×2 (08:55→20:03)
[2016-03-15] MEDS: APIXABAN 5 MG TABLET NGT SCH ×2 (09:04→20:26)
[2016-03-15] MEDS: LACTOBACILLUS RHAMNOSUS CAP NGT SCH ×2 (09:04→20:25)
[2016-03-15] MEDS: SPIRONOLACTONE 25 MG TAB NGT SCH (09:04)
--- NOTE | 2016-03-15 10:56 | PN ---
DATE: 03/15/2016 She remains intubated, FIO2 of 50%, PEEP of 5, left-sided pneumonia, left pleural effusion, controll ed atrial fibrillation. She is awake. OBJECTIVE: VITAL SIGNS: Blood pressure 104/68, respirations of 16, pulse of 114 irregularly irregular, 96% sat uration on 50% FIO2, 5 of PEEP. CHEST: Distant breath sounds throughout both lung solis. COR: S1, S2, Irregularly irregular rhythm on examination. Rate 90 to 100. ABDOMEN: Distended all 4 quadrants. NEUROLOGICAL: She follows all simple commands. She is trying to smile with a tube in. She moves al l extremities purposefully. She tracks me. LABORATORY DATA: White blood cell count of 10.1, hemoglobin 11.3, hematocrit 35.9, MCV of 90.9, roly telet count 275,000. Chemistry: Serum sodium 154, potassium 3.3, chloride 107, bicarbonate 36, BUN of 30, creatinine 0.85. ASSESSMENT AND PLAN: Awaiting possible extubation per pulmonary recommendations, still high risk of ongoing morbid complications, both now and in the future unless patient makes major lifestyle osorio es. Before discharge patient will have an ongoing conversation with her and discuss treatment approa ches, possible ongoing intervention groups and support groups. Dictated By: BRIELLE CANO MD, LP/KIKE Conf#: [id number] DID#: [id number]
--- NOTE | 2016-03-15 14:51 | CONS ---
Date/Time of Note Date/Time of Note DATE: 03/15/16 TIME: 14:49 Assessment/Plan Assessment/Plan Chief Complaint/Hosp Course Acute on chronic diastolic heart failure - echocardiogram 11/14/2015 showed LVEF 55%, mild diastolic dysfunction. Still needs diuresis Paroxysmal atrial fibrillation - rates overall ok Acute on chronic hypoxic respiratory failure - intubated Pneumonia - left pleural effusion also noted Chronic obstructive pulmonary disease exacerbation - on 4 liters home oxygen at baseline Hypertension Dyslipidemia Diabetes mellitus -replete K+ -continue Bumex 1mg IV BID -continue diltiazem 90mg PO/NGT Q6hr -continue spironolactone 12.5mg daily -continue Eliquis 5mg BID -continue atorvastatin 40mg daily Problems: Consultation Date/Type/Reason Admit Date/Time Mar 06, 2016 at 15:11 Initial Consult Date Type of Consultation: Cardiology 24 HR Interval Summary Free Text/Dictation No o/n events. Weaning in process. HR remains <110 overall Exam/Review of Systems Vital Signs Vitals Vital Signs Date Time Temp Pulse Resp B/P Pulse Ox O2 Delivery O2 Flow Rate FiO2 03/15/16 12:00 99.0 114 21 119/70 95 CPAP Mechanical Ventilator 03/15/16 04:56 50 Intake and Output 03/14/16 03/14/16 03/15/16 15:00 23:00 07:00 Intake Total 50 ml 550 ml 550 ml Output Total 280 ml 980 ml 680 ml Balance -230 ml -430 ml -130 ml Exam Constitutional: alert Head: atraumatic, normocephalic ENMT: intubated Neck: No jvd (difficult to assess) Respiratory: diminished breath sounds Cardiovascular: edema (1+), No regular rate and rhythm, No systolic murmur Gastrointestinal: non-tender, soft Results Result Diagram: 03/15/16 0525 03/15/16 0525 Results 24 hrs Laboratory Tests Test 03/14/16 17:17 03/14/16 17:36 03/14/16 21:53 03/14/16 23:34 Bedside Glucose 109 112 97 Anion Gap 12 Blood Urea Nitrogen 25 H Calcium Level 6.6 L Carbon Dioxide Level 30 Chloride Level 112 H Creatinine 0.68 Glucose Level 89 Potassium Level 2.6 *L Sodium Level 151 H Test 03/15/16 05:25 03/15/16 06:28 03/15/16 07:00 03/15/16 13:41 Alanine Aminotransferase (ALT/SGPT) 35 Albumin 3.2 L Albumin/Globulin Ratio 0.96 Alkaline Phosphatase 114 Anion Gap 14 Aspartate Amino Transf (AST/SGOT) 26 Basophils # 0.0 Basophils % 0.0 Blood Morphology Comment Blood Urea Nitrogen 30 H Calcium Level 8.5 Carbon Dioxide Level 36 H Chloride Level 107 Creatinine 0.85 Direct Bilirubin 0.00 Eosinophils # 0.2 Eosinophils % 1.6 Globulin 3.30 H Glucose Level 92 Hematocrit 35.9 L Hemoglobin 11.3 L Hemoglobin A1c 6.9 H INR International Normalized Ratio 1.25 Indirect Bilirubin 0.2 Lymphocytes # 1.2 Lymphocytes % 11.6 L Magnesium Level 2.3 Mean Corpuscular Hemoglobin 28.7 L Mean Corpuscular Hemoglobin Concent 31.6 L Mean Corpuscular Volume 90.9 Mean Platelet Volume 8.1 Monocytes # 0.8 Monocytes % 7.5 Neutrophils # 8.0 H Neutrophils % 79.3 H Nucleated Red Blood Cells # 0.0 Nucleated Red Blood Cells % 0.0 Phosphorus Level 2.4 L Platelet Count 275 Potassium Level 3.3 L Prothrombin Time 15.8 H Prothrombin Time Ratio 1.2 Red Blood Count 3.95 L Red Cell Distribution Width 19.8 H Sodium Level 154 H Thyroid Stimulating Hormone (TSH) Pending Total Bilirubin 0.2 Total Protein 6.5 White Blood Count 10.1 Bedside Glucose 91 107 Arterial Blood HCO3 31.2 H Arterial Blood Base Excess 5.9 H Arterial Blood Oxygen Saturation 94.8 L Joseph Test ACCEPTAB Arterial Blood Gas Puncture Site Left Radial Arterial Blood Carboxyhemoglobin 0.2 Arterial Blood Date Drawn 03/15/2016 7:20:12 AM Arterial Blood Methemoglobin 0.1 Arterial Blood pCO2 (Temp correct) 47.9 H Arterial Blood pH (Temp corrected) 7.431 Arterial Blood pO2 (Temp corrected) 74.3 L Blood Gas A-a O2 Differential 228.3 H Blood Gas Actual Respiration Rate 16 Blood Gas Low PEEP Setting 5.0 Blood Gas Modality VENT - SIMV Blood Gas Notified Time 03/15/2016 7:47:10 AM Blood Gas Notified Whom TK Blood Gas Pressure Support 15 Blood Gas Respiration Rate 8.0 Blood Gas Specimen Source Blood arterial Blood Gas Temperature 37.0 Blood Gas Tidal Volume 500.0 FiO2 50.0 Oxyhemoglobin Percent 94.5 Total Hemoglobin 12.9 Medications Medications Current Medications Salmeterol Xinafoate/ Fluticasone (Advair 250/50 Diskus) 1 inh BID INH Last administered on 03/08/16at 08:35; Admin Dose 1 INH; Start 03/06/16 at 21:00 Diltiazem HCl 90 mg 90 mg Q6 PO Last administered on 03/15/16at 13:43; Admin Dose 90 MG; Start 03/07/16 at 18:30 Propofol (Diprivan) 100 ml @ 3.816 mls/ hr Q12H IV Last administered on at 14:03; Admin Dose 15.264 MLS/HR; Start 03/08/16 at 10:00 Apixaban (Eliquis) 5 mg BID NGT Last administered on 03/15/16at 09:04; Admin Dose 5 MG; Start 03/08/16 at 10:50 Atorvastatin Calcium (Lipitor) 40 mg HS NGT Last administered on 03/14/16at 21: 50; Admin Dose 40 MG; Start 03/08/16 at 10:50 Spironolactone 12.5 mg 12.5 mg DAILY NGT Last administered on 03/15/16at 09:04 ; Admin Dose 12.5 MG; Start 03/08/16 at 10:51 Vancomycin HCl (Vancocin) 250 ml @ 125 mls/hr Q12H IVPB Last administered on 03/15/16at 02:28; Admin Dose 125 MLS/HR; Start 03/09/16 at 03:00 Insulin Glargine (Lantus) 22 unit HS SC Last administered on 03/14/16at 21:55; Admin Dose 22 UNIT; Start 03/08/16 at 21:00 Miscellaneous Information 1 ea NOTE XX ; Start 03/10/16 at 14:30 Glucose (Glutose) 15 gm Q15M PRN PO DECREASED GLUCOSE; Start 03/10/16 at 14:30 Glucose (Glutose) 22.5 gm Q15M PRN PO DECREASED GLUCOSE; Start 03/10/16 at 14: 30 Dextrose (D50w Syringe) 25 ml Q15M PRN IV DECREASED GLUCOSE; Start 03/10/16 at 14:30 Dextrose (D50w Syringe) 50 ml Q15M PRN IV DECREASED GLUCOSE; Start 03/10/16 at 14:30 Glucagon (Glucagen) 1 mg Q15M PRN IM DECREASED GLUCOSE; Start 03/10/16 at 14: 30 Glucose (Glutose) 15 gm Q15M PRN BUCCAL DECREASED GLUCOSE; Start 03/10/16 at 14:30 Acetaminophen (Tylenol Liquid) 650 mg Q4H PRN GTB PAIN AND OR ELEVATED TEMP Last administered on 03/13/16at 00:36; Admin Dose 650 MG; Start 03/11/16 at 12: 30 Pantoprazole (Protonix Iv) 40 mg DAILY@06 IV Last administered on 03/15/16at 06 :28; Admin Dose 40 MG; Start 03/12/16 at 06:00 Labetalol HCl (Labetalol) 20 mg Q2H PRN IV SBP>160 Last administered on at 13:17; Admin Dose 20 MG; Start 03/12/16 at 13:30 Ondansetron HCl (Zofran Inj) 4 mg Q6H PRN IV NAUSEA AND/OR VOMITING Last administered on 03/13/16at 14:00; Admin Dose 4 MG; Start 03/13/16 at 14:00 Simethicone (Mylicon) 160 mg Q6H NGT Last administered on 03/15/16at 09:04; Admin Dose 160 MG; Start 03/13/16 at 15:00; Stop 03/16/16 at 14:59 Insulin Aspart (Novolog Insulin Pen) NOVOLOG *MODERATE* ALGORI... Q6 SC ; Start 03/14/16 at 00:00 Lactobacillus Acidophilus/ Rhamnosus (Culturelle) 1 cap BID NGT Last administered on 03/15/16at 09:04; Admin Dose 1 CAP; Start 03/14/16 at 21:00 Metronidazole 500 mg 500 mg Q8 NGT Last administered on 03/15/16at 06:29; Admin Dose 500 MG; Start 03/14/16 at 22:00 Potassium Chloride (KCl 20 MEQ/50 ML SW) 50 ml @ 25 mls/hr ONCE IVPB Last administered on 03/15/16at 00:02; Admin Dose 25 MLS/HR; Start 03/14/16 at 23:45 ; Stop 03/15/16 at 23:44 AMY SLOAN Mar 15, 2016 14:50
[2016-03-15] MEDS ORDERED: POTASSIUM CHLORIDE 20 MEQ POWDER FOR ORAL SOLN PO ONE (15:00)
[2016-03-15 15:15] LABS: THYROID STIMULATING HORMONE 1.58 MIU/L (0.465-4.680)
[2016-03-15] MEDS: POTASSIUM CHLORIDE 50 ML IVPB SCH ×2 (16:17→16:37)
--- NOTE | 2016-03-15 17:45 | PN ---
Date/Time of Note Date/Time of Note DATE: 03/15/16 TIME: 17:42 Assessment/Plan VTE Prophylaxis VTE Prophylaxis Intervention: LMWH Lines/Catheters IV Catheter Type (from Nrs): Peripheral IV Urinary Cath still in place: Yes Assessment/Plan Chief Complaint/Hosp Course A/P 1) Ac Resp Failure; mod stable; cont weaning vent. TFeeds if not extubated in am. 2) CHF; mod stable; cont diuretics 3) Htn 4) OHS/MICHAEL? 5) M Obesity 6) A Fib rvr; cont anticoagulation 7) COPD 8) Chr Resp failure; home o2 4l 9) Ftt 10) Anemia 11) Abn Ca 125 12) Thyroid nodule 13) Adrenal nodule? 14) Fever- improved; c diff apparently -ve. Problems: Subjective 24 Hr Interval Summary Free Text/Dictation remains awake/ alert on the vent; no arrhythmias. family updated. holding off on TFeeds for extubation. Exam/Review of Systems Vital Signs Vitals Vital Signs Date Time Temp Pulse Resp B/P Pulse Ox O2 Delivery O2 Flow Rate FiO2 03/15/16 17:00 108 15 106/78 99 Mechanical Ventilator 03/15/16 16:00 98.9 03/15/16 04:56 50 Intake and Output 03/14/16 03/14/16 03/15/16 15:00 23:00 07:00 Intake Total 50 ml 550 ml 550 ml Output Total 280 ml 980 ml 680 ml Balance -230 ml -430 ml -130 ml Exam Constitutional: alert Respiratory: clear to auscultation, diminished breath sounds Cardiovascular: irregular rhythm, regular rate and rhythm Gastrointestinal: non-tender (nd; no r r g; obese), soft Results Result Diagram: 03/15/16 0525 03/15/16 0525 Results 24 hrs Laboratory Tests Test 03/14/16 21:53 03/14/16 23:34 03/15/16 05:25 03/15/16 06:28 Bedside Glucose 112 97 91 Alanine Aminotransferase (ALT/SGPT) 35 Albumin 3.2 L Albumin/Globulin Ratio 0.96 Alkaline Phosphatase 114 Anion Gap 14 Aspartate Amino Transf (AST/SGOT) 26 Basophils # 0.0 Basophils % 0.0 Blood Morphology Comment Blood Urea Nitrogen 30 H Calcium Level 8.5 Carbon Dioxide Level 36 H Chloride Level 107 Creatinine 0.85 Direct Bilirubin 0.00 Eosinophils # 0.2 Eosinophils % 1.6 Free Thyroxine 1.30 Globulin 3.30 H Glucose Level 92 Hematocrit 35.9 L Hemoglobin 11.3 L Hemoglobin A1c 6.9 H INR International Normalized Ratio 1.25 Indirect Bilirubin 0.2 Lymphocytes # 1.2 Lymphocytes % 11.6 L Magnesium Level 2.3 Mean Corpuscular Hemoglobin 28.7 L Mean Corpuscular Hemoglobin Concent 31.6 L Mean Corpuscular Volume 90.9 Mean Platelet Volume 8.1 Monocytes # 0.8 Monocytes % 7.5 Neutrophils # 8.0 H Neutrophils % 79.3 H Nucleated Red Blood Cells # 0.0 Nucleated Red Blood Cells % 0.0 Phosphorus Level 2.4 L Platelet Count 275 Potassium Level 3.3 L Prothrombin Time 15.8 H Prothrombin Time Ratio 1.2 Red Blood Count 3.95 L Red Cell Distribution Width 19.8 H Sodium Level 154 H Thyroid Stimulating Hormone (TSH) 1.580 Total Bilirubin 0.2 Total Protein 6.5 Total Triiodothyronine 0.62 L White Blood Count 10.1 Test 03/15/16 07:00 03/15/16 13:41 Arterial Blood HCO3 31.2 H Arterial Blood Base Excess 5.9 H Arterial Blood Oxygen Saturation 94.8 L Joseph Test ACCEPTAB Arterial Blood Gas Puncture Site Left Radial Arterial Blood Carboxyhemoglobin 0.2 Arterial Blood Date Drawn 03/15/2016 7:20:12 AM Arterial Blood Methemoglobin 0.1 Arterial Blood pCO2 (Temp correct) 47.9 H Arterial Blood pH (Temp corrected) 7.431 Arterial Blood pO2 (Temp corrected) 74.3 L Blood Gas A-a O2 Differential 228.3 H Blood Gas Actual Respiration Rate 16 Blood Gas Low PEEP Setting 5.0 Blood Gas Modality VENT - SIMV Blood Gas Notified Time 03/15/2016 7:47:10 AM Blood Gas Notified Whom TK Blood Gas Pressure Support 15 Blood Gas Respiration Rate 8.0 Blood Gas Specimen Source Blood arterial Blood Gas Temperature 37.0 Blood Gas Tidal Volume 500.0 FiO2 50.0 Oxyhemoglobin Percent 94.5 Total Hemoglobin 12.9 Bedside Glucose 107 Medications Medications Current Medications Salmeterol Xinafoate/ Fluticasone (Advair 250/50 Diskus) 1 inh BID INH Last administered on 03/08/16at 08:35; Admin Dose 1 INH; Start 03/06/16 at 21:00 Diltiazem HCl 90 mg 90 mg Q6 PO Last administered on 03/15/16at 13:43; Admin Dose 90 MG; Start 03/07/16 at 18:30 Propofol (Diprivan) 100 ml @ 3.816 mls/ hr Q12H IV Last administered on at 14:03; Admin Dose 15.264 MLS/HR; Start 03/08/16 at 10:00 Apixaban (Eliquis) 5 mg BID NGT Last administered on 03/15/16at 09:04; Admin Dose 5 MG; Start 03/08/16 at 10:50 Atorvastatin Calcium (Lipitor) 40 mg HS NGT Last administered on 03/14/16at 21: 50; Admin Dose 40 MG; Start 03/08/16 at 10:50 Spironolactone 12.5 mg 12.5 mg DAILY NGT Last administered on 03/15/16at 09:04 ; Admin Dose 12.5 MG; Start 03/08/16 at 10:51 Vancomycin HCl (Vancocin) 250 ml @ 125 mls/hr Q12H IVPB Last administered on 03/15/16at 16:18; Admin Dose 125 MLS/HR; Start 03/09/16 at 03:00 Insulin Glargine (Lantus) 22 unit HS SC Last administered on 03/14/16at 21:55; Admin Dose 22 UNIT; Start 03/08/16 at 21:00 Miscellaneous Information 1 ea NOTE XX ; Start 03/10/16 at 14:30 Glucose (Glutose) 15 gm Q15M PRN PO DECREASED GLUCOSE; Start 03/10/16 at 14:30 Glucose (Glutose) 22.5 gm Q15M PRN PO DECREASED GLUCOSE; Start 03/10/16 at 14: 30 Dextrose (D50w Syringe) 25 ml Q15M PRN IV DECREASED GLUCOSE; Start 03/10/16 at 14:30 Dextrose (D50w Syringe) 50 ml Q15M PRN IV DECREASED GLUCOSE; Start 03/10/16 at 14:30 Glucagon (Glucagen) 1 mg Q15M PRN IM DECREASED GLUCOSE; Start 03/10/16 at 14: 30 Glucose (Glutose) 15 gm Q15M PRN BUCCAL DECREASED GLUCOSE; Start 03/10/16 at 14:30 Acetaminophen (Tylenol Liquid) 650 mg Q4H PRN GTB PAIN AND OR ELEVATED TEMP Last administered on 03/13/16at 00:36; Admin Dose 650 MG; Start 03/11/16 at 12: 30 Pantoprazole (Protonix Iv) 40 mg DAILY@06 IV Last administered on 03/15/16at 06 :28; Admin Dose 40 MG; Start 03/12/16 at 06:00 Labetalol HCl (Labetalol) 20 mg Q2H PRN IV SBP>160 Last administered on at 13:17; Admin Dose 20 MG; Start 03/12/16 at 13:30 Ondansetron HCl (Zofran Inj) 4 mg Q6H PRN IV NAUSEA AND/OR VOMITING Last administered on 03/13/16at 14:00; Admin Dose 4 MG; Start 03/13/16 at 14:00 Simethicone (Mylicon) 160 mg Q6H NGT Last administered on 03/15/16at 16:17; Admin Dose 160 MG; Start 03/13/16 at 15:00; Stop 03/16/16 at 14:59 Insulin Aspart (Novolog Insulin Pen) NOVOLOG *MODERATE* ALGORI... Q6 SC ; Start 03/14/16 at 00:00 Lactobacillus Acidophilus/ Rhamnosus (Culturelle) 1 cap BID NGT Last administered on 03/15/16at 09:04; Admin Dose 1 CAP; Start 03/14/16 at 21:00 Metronidazole (Flagyl) 500 mg Q8 NGT Last administered on 03/15/16at 16:17; Admin Dose 500 MG; Start 03/14/16 at 22:00 ROMI RILEY MD Mar 15, 2016 17:45
[2016-03-15] MEDS ORDERED: LABETALOL HCL 20MG INJ IV PRN (18:00)
[2016-03-15] MEDS: ATORVASTATIN 40 MG TAB NGT SCH (20:25)
[2016-03-15] MEDS: INSULIN GLARGINE [LANtus] 3 ML PEN SC SCH (20:41)
[2016-03-16] VITALS (31 sets, daily range): BP systolic 98–132; BP diastolic 51–97; PULSE 87–146; RESP 15–27
[2016-03-16] MEDS: ALBUTEROL HFA 8 GM INHALER INH SCH ×5 (01:22→17:00)
[2016-03-16] MEDS: IPRATROPIUM (HFA) 12.9 GM INHALER INH SCH ×5 (01:22→17:00)
[2016-03-16] MEDS: VANCOMYCIN 1 GM in NS 250 ML IVPB SCH ×2 (03:14→14:43)
[2016-03-16 04:59] LABS: BASOPHILS % 0.1 % (0.0-2.0); EOSINOPHILS # 0.2 10^3/ul (0.0-0.5); EOSINOPHILS % 1.5 % (0.0-7.0); HEMATOCRIT 37.2 % (37.0-47.0); HEMOGLOBIN 11.6 g/dl (12.0-16.0); LYMPHOCYTES # 1.1 10^3/ul (0.8-2.9); LYMPHOCYTES % 11.6 % (15.0-51.0); MEAN CORPUSCULAR HEMOGLOBIN 28.3 pg (29.0-33.0); MEAN CORPUSCULAR HGB CONC 31.2 g/dl (32.0-37.0); MEAN CORPUSCULAR VOLUME 90.7 fl (82.0-101.0); MEAN PLATELET VOLUME 8.3 fl (7.4-10.4); MONOCYTE # 0.8 10^3/ul (0.3-0.9); MONOCYTES % 7.7 % (0.0-11.0); NEUTROPHIL # 7.8 10^3/ul (1.6-7.5); NEUTROPHILS % 79.1 % (39.0-77.0); PLATELET COUNT 281 10^3/UL (140-440); RED CELL DISTRIBUTION WIDTH 20.1 % (11.5-14.5); UNCORRECTED WBC 9.9 10^3/ul (4.8-10.8); WHITE BLOOD COUNT 9.9 10^3/ul (4.8-10.8)
[2016-03-16 05:08] LABS: CONDITION 1; LH ANALYZER COMMENTS 1
[2016-03-16 05:22] LABS: CREATININE 0.79 mg/dl (0.44-1.00)
[2016-03-16 05:23] LABS: CALCIUM 8.5 mg/dl (8.4-10.2); MAGNESIUM 2.1 mg/dl (1.7-2.5); PHOSPHORUS 2.3 mg/dl (2.5-4.9)
[2016-03-16 05:25] LABS: POTASSIUM 2.8 mmol/L (3.5-5.1)
[2016-03-16] MEDS: metroNIDAZOLE 500 MG TAB NGT SCH ×3 (05:49→22:13)
[2016-03-16] MEDS: DILTIAZEM 90 MG TAB PO SCH ×3 (05:51→17:30)
[2016-03-16] MEDS: INSULIN ASPART [NOVOLOG] 3 ML PEN SC SCH ×3 (06:00→17:30)
[2016-03-16] MEDS ORDERED: POTASSIUM CHLORIDE (SR) 20 MEQ TAB PO STA (06:54)
[2016-03-16] MEDS ORDERED: POTASSIUM CHLORIDE 250 ML IVPB ONE (07:00)
[2016-03-16] MEDS: SALMETEROL/FLUTICASONE 250/50 INHA INH SCH ×2 (09:00→22:13)
[2016-03-16 09:42] LABS: AADO2 Arterial 203.2 mmHg (7.0-24.0); Allen Test ACCEPTAB; Arterial Base Excess 3.6 mmol/L (-3.0-3); Arterial COHb 0.3 % (0.0-3.0); Arterial Fraction of Oxyhgb 96.4 % (93.0-99.0); Arterial MetHb 0.2 % (0.0-1.5); Arterial Total Hemglobin 13.8 g/dl (12.0-18.0); Blood Gas PS 10; MODE VENT - CPAP
[2016-03-16] MEDS: SPIRONOLACTONE 25 MG TAB NGT SCH (09:42)
[2016-03-16] MEDS: LACTOBACILLUS RHAMNOSUS CAP NGT SCH ×2 (09:42→20:37)
[2016-03-16] MEDS: FAMOTIDINE 20 MG INJ IV SCH (09:42)
[2016-03-16] MEDS: APIXABAN 5 MG TABLET NGT SCH ×2 (09:42→20:46)
[2016-03-16] MEDS: PROPOFOL 100 ML IV SCH ×2 (10:00→22:00)
[2016-03-16] MEDS ORDERED: POTASSIUM CHLORIDE 20 MEQ POWDER FOR ORAL SOLN NGT ONE (11:00)
[2016-03-16] MEDS ORDERED: DIGOXIN 500 MCG INJ IV ONE ×3 (11:00→23:00)
--- NOTE | 2016-03-16 11:13 | CONS ---
Date/Time of Note Date/Time of Note DATE: 03/16/16 TIME: 11:09 Assessment/Plan Assessment/Plan Chief Complaint/Hosp Course Acute on chronic diastolic heart failure - echocardiogram 11/14/2015 showed LVEF 55%, mild diastolic dysfunction. Bumex has been held due to ?hypernatremia Paroxysmal atrial fibrillation - rates need better control Acute on chronic hypoxic respiratory failure - intubated Pneumonia - left pleural effusion also noted Chronic obstructive pulmonary disease exacerbation - on 4 liters home oxygen at baseline Hypertension Dyslipidemia Diabetes mellitus -K was 2.8 and she has received 100mEq and I will add another 20 so this should theoretically take her back to ~4.0 -as K has been corrected, will give IV digoxin load today and start 250mcg PO tomorrow for better rate control. Will order dig level for 2 days from now -Bumex 1mg IV BID (has been held for ?hypernatremia, ok to hold for today and reasess. If she is not extubated, consider free water) -continue diltiazem 90mg PO/NGT Q6hr -continue spironolactone 12.5mg daily -continue Eliquis 5mg BID -continue atorvastatin 40mg daily Problems: Consultation Date/Type/Reason Admit Date/Time Mar 06, 2016 at 15:11 Type of Consultation: Cardiology 24 HR Interval Summary Free Text/Dictation No o/n events. Being weaned off vent. Wants to be extubated. HR remain mostly > 110 today Exam/Review of Systems Vital Signs Vitals Vital Signs Date Time Temp Pulse Resp B/P Pulse Ox O2 Delivery O2 Flow Rate FiO2 03/16/16 08:39 50 03/16/16 08:00 103 03/16/16 08:00 16 97 03/16/16 08:00 108/81 Mechanical Ventilator 03/16/16 04:00 99.1 Intake and Output 03/15/16 03/15/16 03/16/16 15:00 23:00 07:00 Intake Total 30 ml 350 ml 250 ml Output Total 550 ml 1445 ml 400 ml Balance -520 ml -1095 ml -150 ml Exam Constitutional: alert Head: atraumatic, normocephalic ENMT: intubated Neck: No jvd (cant assess) Respiratory: clear to auscultation, diminished breath sounds Cardiovascular: No regular rate and rhythm, No systolic murmur Gastrointestinal: non-tender, soft Results Result Diagram: 03/16/16 0400 03/16/16 0400 Results 24 hrs Laboratory Tests Test 03/15/16 13:41 03/15/16 17:58 03/15/16 20:31 03/15/16 23:40 Bedside Glucose 107 89 91 91 Test 03/16/16 04:00 03/16/16 05:52 03/16/16 09:00 Anion Gap 17 H Basophils # 0.0 Basophils % 0.1 Blood Morphology Comment Blood Urea Nitrogen 27 H Calcium Level 8.5 Carbon Dioxide Level 35 H Chloride Level 108 Creatinine 0.79 Eosinophils # 0.2 Eosinophils % 1.5 Glucose Level 82 Hematocrit 37.2 Hemoglobin 11.6 L Lymphocytes # 1.1 Lymphocytes % 11.6 L Magnesium Level 2.1 Mean Corpuscular Hemoglobin 28.3 L Mean Corpuscular Hemoglobin Concent 31.2 L Mean Corpuscular Volume 90.7 Mean Platelet Volume 8.3 Monocytes # 0.8 Monocytes % 7.7 Neutrophils # 7.8 H Neutrophils % 79.1 H Nucleated Red Blood Cells # 0.0 Nucleated Red Blood Cells % 0.0 Phosphorus Level 2.3 L Platelet Count 281 Potassium Level 2.8 *L Red Blood Count 4.10 L Red Cell Distribution Width 20.1 H Sodium Level 157 H White Blood Count 9.9 Bedside Glucose 75 Arterial Blood HCO3 30.0 H Arterial Blood Base Excess 3.6 H Arterial Blood Oxygen Saturation 96.9 Joseph Test ACCEPTAB Arterial Blood Gas Puncture Site Left Radial Arterial Blood Carboxyhemoglobin 0.3 Arterial Blood Date Drawn 03/16/2016 9:20:33 AM Arterial Blood Methemoglobin 0.2 Arterial Blood pCO2 (Temp correct) 52.3 H Arterial Blood pH (Temp corrected) 7.376 Arterial Blood pO2 (Temp corrected) 94.5 Blood Gas A-a O2 Differential 203.2 H Blood Gas Actual Respiration Rate 23 Blood Gas Low PEEP Setting 5.0 Blood Gas Modality VENT - CPAP Blood Gas Notified Time 03/16/2016 9:42:25 AM Blood Gas Notified Whom JLD Blood Gas Pressure Support 10 Blood Gas Specimen Source Blood arterial Blood Gas Temperature 37.0 FiO2 50.0 Oxyhemoglobin Percent 96.4 Total Hemoglobin 13.8 Medications Medications Current Medications Salmeterol Xinafoate/ Fluticasone (Advair 250/50 Diskus) 1 inh BID INH Last administered on 03/08/16at 08:35; Admin Dose 1 INH; Start 03/06/16 at 21:00 Diltiazem HCl 90 mg 90 mg Q6 PO Last administered on 03/16/16at 05:51; Admin Dose 90 MG; Start 03/07/16 at 18:30 Propofol (Diprivan) 100 ml @ 3.816 mls/ hr Q12H IV Last administered on at 14:03; Admin Dose 15.264 MLS/HR; Start 03/08/16 at 10:00 Apixaban (Eliquis) 5 mg BID NGT Last administered on 03/16/16at 09:42; Admin Dose 5 MG; Start 03/08/16 at 10:50 Atorvastatin Calcium (Lipitor) 40 mg HS NGT Last administered on 03/15/16at 20: 25; Admin Dose 40 MG; Start 03/08/16 at 10:50 Spironolactone 12.5 mg 12.5 mg DAILY NGT Last administered on 03/16/16at 09:42 ; Admin Dose 12.5 MG; Start 03/08/16 at 10:51 Vancomycin HCl (Vancocin) 250 ml @ 125 mls/hr Q12H IVPB Last administered on 03/16/16at 03:14; Admin Dose 125 MLS/HR; Start 03/09/16 at 03:00 Insulin Glargine (Lantus) 22 unit HS SC Last administered on 03/15/16at 20:41; Admin Dose 22 UNIT; Start 03/08/16 at 21:00 Miscellaneous Information 1 ea NOTE XX ; Start 03/10/16 at 14:30 Glucose (Glutose) 15 gm Q15M PRN PO DECREASED GLUCOSE; Start 03/10/16 at 14:30 Glucose (Glutose) 22.5 gm Q15M PRN PO DECREASED GLUCOSE; Start 03/10/16 at 14: 30 Dextrose (D50w Syringe) 25 ml Q15M PRN IV DECREASED GLUCOSE; Start 03/10/16 at 14:30 Dextrose (D50w Syringe) 50 ml Q15M PRN IV DECREASED GLUCOSE; Start 03/10/16 at 14:30 Glucagon (Glucagen) 1 mg Q15M PRN IM DECREASED GLUCOSE; Start 03/10/16 at 14: 30 Glucose (Glutose) 15 gm Q15M PRN BUCCAL DECREASED GLUCOSE; Start 03/10/16 at 14:30 Acetaminophen (Tylenol Liquid) 650 mg Q4H PRN GTB PAIN AND OR ELEVATED TEMP Last administered on 03/13/16at 00:36; Admin Dose 650 MG; Start 03/11/16 at 12: 30 Labetalol HCl (Labetalol) 20 mg Q2H PRN IV SBP>160 Last administered on at 13:17; Admin Dose 20 MG; Start 03/12/16 at 13:30 Ondansetron HCl (Zofran Inj) 4 mg Q6H PRN IV NAUSEA AND/OR VOMITING Last administered on 03/13/16 14:00; Admin Dose 4 MG; Start 03/13/16 at 14:00 Simethicone (Mylicon) 160 mg Q6H NGT Last administered on 03/16/16at 09:42; Admin Dose 160 MG; Start 03/13/16 at 15:00; Stop 03/16/16 at 14:59 Insulin Aspart (Novolog Insulin Pen) NOVOLOG *MODERATE* ALGORI... Q6 SC ; Start 03/14/16 at 00:00 Lactobacillus Acidophilus/ Rhamnosus (Culturelle) 1 cap BID NGT Last administered on 03/16/16at 09:42; Admin Dose 1 CAP; Start 03/14/16 at 21:00 Metronidazole (Flagyl) 500 mg Q8 NGT Last administered on 03/16/16at 05:49; Admin Dose 500 MG; Start 03/14/16 at 22:00 Famotidine (Pepcid Iv) 20 mg DAILY IV Last administered on 03/16/16at 09:42; Admin Dose 20 MG; Start 03/16/16 at 09:00 Labetalol HCl (Labetalol) 10 mg Q6 PRN IV ELEVATED BLOOD PRESSURE; Start 03/15 at 18:00 AMY SLOAN Mar 16, 2016 11:13
[2016-03-16] MEDS ORDERED: FUROSEMIDE 40 MG INJ IV ONE (11:30)
--- NOTE | 2016-03-16 11:34 | CONS ---
Date/Time of Note Date/Time of Note DATE: 03/16/16 TIME: 11:32 Consult Date/Type/Reason Admit Date/Time Mar 06, 2016 at 15:11 Type of Consultation: pulmonary Subjective Awake alert oriented on mechanical ventilation currently stable on CPAP requesting removal of endotracheal tube Objective Vital Signs Date Time Temp Pulse Resp B/P Pulse Ox O2 Delivery O2 Flow Rate FiO2 03/16/16 08:39 50 03/16/16 08:00 103 03/16/16 08:00 16 97 03/16/16 08:00 108/81 Mechanical Ventilator 03/16/16 04:00 99.1 Intake and Output 03/15/16 03/15/16 03/16/16 15:00 23:00 07:00 Intake Total 30 ml 350 ml 250 ml Output Total 550 ml 1445 ml 400 ml Balance -520 ml -1095 ml -150 ml PHYSICAL EXAMINATION GENERAL: Obese lady on mechanical ventilation awake alert oriented comfortable VITAL SIGNS: see below. HEENT: Pupils equal, round, and reactive to light. CARDIAC: S1, S2, CHEST: Diminished air entry bilaterally. ABDOMEN: Mildly distended. No bowel sounds. EXTREMITIES: No cyanosis, clubbing edema +1 NEUROLOGIC: No focal deficits. Results/Medications Result Diagram: 03/16/16 0400 03/16/16 0400 Results 24 hrs Chest x-ray Pulmonary edema Laboratory Tests Test 03/15/16 13:41 03/15/16 17:58 03/15/16 20:31 03/15/16 23:40 Bedside Glucose 107 89 91 91 Test 03/16/16 04:00 03/16/16 05:52 03/16/16 09:00 Anion Gap 17 H Basophils # 0.0 Basophils % 0.1 Blood Morphology Comment Blood Urea Nitrogen 27 H Calcium Level 8.5 Carbon Dioxide Level 35 H Chloride Level 108 Creatinine 0.79 Eosinophils # 0.2 Eosinophils % 1.5 Glucose Level 82 Hematocrit 37.2 Hemoglobin 11.6 L Lymphocytes # 1.1 Lymphocytes % 11.6 L Magnesium Level 2.1 Mean Corpuscular Hemoglobin 28.3 L Mean Corpuscular Hemoglobin Concent 31.2 L Mean Corpuscular Volume 90.7 Mean Platelet Volume 8.3 Monocytes # 0.8 Monocytes % 7.7 Neutrophils # 7.8 H Neutrophils % 79.1 H Nucleated Red Blood Cells # 0.0 Nucleated Red Blood Cells % 0.0 Phosphorus Level 2.3 L Platelet Count 281 Potassium Level 2.8 *L Red Blood Count 4.10 L Red Cell Distribution Width 20.1 H Sodium Level 157 H White Blood Count 9.9 Bedside Glucose 75 Arterial Blood HCO3 30.0 H Arterial Blood Base Excess 3.6 H Arterial Blood Oxygen Saturation 96.9 Joseph Test ACCEPTAB Arterial Blood Gas Puncture Site Left Radial Arterial Blood Carboxyhemoglobin 0.3 Arterial Blood Date Drawn 03/16/2016 9:20:33 AM Arterial Blood Methemoglobin 0.2 Arterial Blood pCO2 (Temp correct) 52.3 H Arterial Blood pH (Temp corrected) 7.376 Arterial Blood pO2 (Temp corrected) 94.5 Blood Gas A-a O2 Differential 203.2 H Blood Gas Actual Respiration Rate 23 Blood Gas Low PEEP Setting 5.0 Blood Gas Modality VENT - CPAP Blood Gas Notified Time 03/16/2016 9:42:25 AM Blood Gas Notified Whom JLD Blood Gas Pressure Support 10 Blood Gas Specimen Source Blood arterial Blood Gas Temperature 37.0 FiO2 50.0 Oxyhemoglobin Percent 96.4 Total Hemoglobin 13.8 Medications Current Medications Salmeterol Xinafoate/ Fluticasone (Advair 250/50 Diskus) 1 inh BID INH Last administered on 03/08/16 08:35; Admin Dose 1 INH; Start 03/06/16 at 21:00 Diltiazem HCl 90 mg 90 mg Q6 PO Last administered on 03/16/16 05:51; Admin Dose 90 MG; Start 03/07/16 at 18:30 Propofol (Diprivan) 100 ml @ 3.816 mls/ hr Q12H IV Last administered on 14:03; Admin Dose 15.264 MLS/HR; Start 03/08/16 at 10:00 Apixaban (Eliquis) 5 mg BID NGT Last administered on 03/16/16 09:42; Admin Dose 5 MG; Start 03/08/16 at 10:50 Atorvastatin Calcium (Lipitor) 40 mg HS NGT Last administered on 03/15/16 20: 25; Admin Dose 40 MG; Start 03/08/16 at 10:50 Spironolactone 12.5 mg 12.5 mg DAILY NGT Last administered on 03/16/16 09:42 ; Admin Dose 12.5 MG; Start 03/08/16 at 10:51 Vancomycin HCl (Vancocin) 250 ml @ 125 mls/hr Q12H IVPB Last administered on 03/16/16at 03:14; Admin Dose 125 MLS/HR; Start 03/09/16 at 03:00 Insulin Glargine (Lantus) 22 unit HS SC Last administered on 03/15/16at 20:41; Admin Dose 22 UNIT; Start 03/08/16 at 21:00 Miscellaneous Information 1 ea NOTE XX ; Start 03/10/16 at 14:30 Glucose (Glutose) 15 gm Q15M PRN PO DECREASED GLUCOSE; Start 03/10/16 at 14:30 Glucose (Glutose) 22.5 gm Q15M PRN PO DECREASED GLUCOSE; Start 03/10/16 at 14: 30 Dextrose (D50w Syringe) 25 ml Q15M PRN IV DECREASED GLUCOSE; Start 03/10/16 at 14:30 Dextrose (D50w Syringe) 50 ml Q15M PRN IV DECREASED GLUCOSE; Start 03/10/16 at 14:30 Glucagon (Glucagen) 1 mg Q15M PRN IM DECREASED GLUCOSE; Start 03/10/16 at 14: 30 Glucose (Glutose) 15 gm Q15M PRN BUCCAL DECREASED GLUCOSE; Start 03/10/16 at 14:30 Acetaminophen (Tylenol Liquid) 650 mg Q4H PRN GTB PAIN AND OR ELEVATED TEMP Last administered on 03/13/16at 00:36; Admin Dose 650 MG; Start 03/11/16 at 12: 30 Labetalol HCl (Labetalol) 20 mg Q2H PRN IV SBP>160 Last administered on at 13:17; Admin Dose 20 MG; Start 03/12/16 at 13:30 Ondansetron HCl (Zofran Inj) 4 mg Q6H PRN IV NAUSEA AND/OR VOMITING Last administered on 03/13/16at 14:00; Admin Dose 4 MG; Start 03/13/16 at 14:00 Simethicone (Mylicon) 160 mg Q6H NGT Last administered on 03/16/16at 09:42; Admin Dose 160 MG; Start 03/13/16 at 15:00; Stop 03/16/16 at 14:59 Insulin Aspart (Novolog Insulin Pen) NOVOLOG *MODERATE* ALGORI... Q6 SC ; Start 03/14/16 at 00:00 Lactobacillus Acidophilus/ Rhamnosus (Culturelle) 1 cap BID NGT Last administered on 03/16/16at 09:42; Admin Dose 1 CAP; Start 03/14/16 at 21:00 Metronidazole (Flagyl) 500 mg Q8 NGT Last administered on 03/16/16at 05:49; Admin Dose 500 MG; Start 03/14/16 at 22:00 Famotidine (Pepcid Iv) 20 mg DAILY IV Last administered on 03/16/16at 09:42; Admin Dose 20 MG; Start 03/16/16 at 09:00 Labetalol HCl (Labetalol) 10 mg Q6 PRN IV ELEVATED BLOOD PRESSURE; Start 03/15 at 18:00 Digoxin (Digoxin) 250 mcg ONCE ONCE IV ; Start 03/16/16 at 17:00; Stop at 17:01 Digoxin (Digoxin) 250 mcg ONCE ONCE IV ; Start 03/16/16 at 23:00; Stop at 23:01 Digoxin (Digoxin) 0.25 mg DAILY@13 PO ; Start 03/17/16 at 13:00 Assessment/Plan Chief Complaint/Hosp Course IMPRESSION AND PLAN: 1. Hypoxemic hypercap resp failure currently stable on CPAP weaning trial 2. Encephalopathy resolved 3. MICHAEL 4. Sepsis. 5. Electrolyte Imbalance The patient will require: 1. Extubation and aspiration precautions 2. Antibiotics additional Lasix 3. Correction of hyponatremia 4. Deep vein thrombosis and gastrointestinal prophylaxis. 5. Postextubation noninvasive positive pressure ventilation Problems: OSMANI LUIS MD, [facility] Mar 16, 2016 11:34
[2016-03-16] MEDS ORDERED: LEVALBUTEROL (NEB) 1.25 MG/0.5 ML AMP ONE (14:06)
[2016-03-16] MEDS: IPRATROPIUM (NEB) 0.5 MG/2.5 ML AMP HHN SCH ×3 (14:16→20:39)
[2016-03-16] MEDS: LEVALBUTEROL (NEB) 1.25 MG/0.5 ML AMP HHN SCH ×2 (14:18→20:39)
[2016-03-16] MEDS: ATORVASTATIN 40 MG TAB NGT SCH (20:37)
[2016-03-16] MEDS: INSULIN GLARGINE [LANtus] 3 ML PEN SC SCH (20:38)
[2016-03-17] VITALS (28 sets, daily range): BP systolic 93–137; BP diastolic 58–115; PULSE 74–138; RESP 15–30
[2016-03-17] MEDS: IPRATROPIUM (NEB) 0.5 MG/2.5 ML AMP HHN SCH ×6 (00:15→20:27)
[2016-03-17] MEDS: LEVALBUTEROL (NEB) 1.25 MG/0.5 ML AMP HHN SCH ×6 (00:15→20:26)
[2016-03-17] MEDS: DILTIAZEM 90 MG TAB PO SCH ×2 (00:43→06:17)
[2016-03-17] MEDS: VANCOMYCIN 1 GM in NS 250 ML IVPB SCH ×2 (03:06→15:08)
[2016-03-17 05:32] LABS: CREATININE 0.65 mg/dl (0.44-1.00)
[2016-03-17 05:33] LABS: PHOSPHORUS 2.9 mg/dl (2.5-4.9)
[2016-03-17 05:34] LABS: CALCIUM 7.2 mg/dl (8.4-10.2); MAGNESIUM 1.6 mg/dl (1.7-2.5)
[2016-03-17 05:39] LABS: POTASSIUM 2.7 mmol/L (3.5-5.1)
[2016-03-17 05:44] LABS: BASOPHILS % 0.5 % (0.0-2.0); EOSINOPHILS # 0.2 10^3/ul (0.0-0.5); EOSINOPHILS % 1.9 % (0.0-7.0); HEMATOCRIT 35.1 % (37.0-47.0); HEMOGLOBIN 11.1 g/dl (12.0-16.0); LYMPHOCYTES # 1.4 10^3/ul (0.8-2.9); LYMPHOCYTES % 16.7 % (15.0-51.0); MEAN CORPUSCULAR HEMOGLOBIN 28.7 pg (29.0-33.0); MEAN CORPUSCULAR HGB CONC 31.7 g/dl (32.0-37.0); MEAN CORPUSCULAR VOLUME 90.7 fl (82.0-101.0); MEAN PLATELET VOLUME 8.2 fl (7.4-10.4); MONOCYTE # 0.7 10^3/ul (0.3-0.9); MONOCYTES % 8.4 % (0.0-11.0); NEUTROPHIL # 6.2 10^3/ul (1.6-7.5); NEUTROPHILS % 72.5 % (39.0-77.0); PLATELET COUNT 239 10^3/UL (140-440); RED BLOOD COUNT 3.88 10^6/ul (4.20-5.40); UNCORRECTED WBC 8.5 10^3/ul (4.8-10.8); WHITE BLOOD COUNT 8.5 10^3/ul (4.8-10.8)
[2016-03-17 06:00] LABS: CONDITION 1; LH ANALYZER COMMENTS 1
[2016-03-17] MEDS ORDERED: MAGNESIUM SULFATE 2 GM/50 ML 50 ML IVPB ONE ×2 (06:00→11:30)
[2016-03-17] MEDS: INSULIN ASPART [NOVOLOG] 3 ML PEN SC SCH ×5 (06:00→20:18)
[2016-03-17] MEDS: metroNIDAZOLE 500 MG TAB NGT SCH ×3 (06:17→22:11)
[2016-03-17] MEDS: POTASSIUM CHLORIDE 250 ML IVPB SCH ×2 (09:08→12:55)
[2016-03-17] MEDS: FAMOTIDINE 20 MG INJ IV SCH (09:08)
[2016-03-17] MEDS: SALMETEROL/FLUTICASONE 250/50 INHA INH SCH ×2 (09:09→20:12)
[2016-03-17] MEDS: SPIRONOLACTONE 25 MG TAB NGT SCH (09:09)
[2016-03-17] MEDS: LACTOBACILLUS RHAMNOSUS CAP NGT SCH ×2 (09:09→20:12)
[2016-03-17] MEDS: APIXABAN 5 MG TABLET NGT SCH ×2 (09:09→20:12)
[2016-03-17] MEDS: PROPOFOL 100 ML IV SCH (10:00)
[2016-03-17] MEDS ORDERED: POTASSIUM CHLORIDE 20 MEQ POWDER FOR ORAL SOLN PO ONE (11:30)
--- NOTE | 2016-03-17 11:30 | CONS ---
Date/Time of Note Date/Time of Note DATE: 03/17/16 TIME: 11:25 Assessment/Plan Assessment/Plan Chief Complaint/Hosp Course Acute on chronic diastolic heart failure - echocardiogram 11/14/2015 showed LVEF 55%, mild diastolic dysfunction. Will place back on maintenance diuretics Paroxysmal atrial fibrillation - rates better after addition of digoxin Acute on chronic hypoxic respiratory failure - intubated, now extubated 03/16 Pneumonia - left pleural effusion also noted Chronic obstructive pulmonary disease exacerbation - on 4 liters home oxygen at baseline Hypertension Dyslipidemia Diabetes mellitus -continue digoxin 250mcg -check dig level tomorrow -consolidate diltiazem to 360mg daily -restart bumex 1mg BID but PO as equivalent bioavailability -replete K, Mg -continue spironolactone 12.5mg daily -continue Eliquis 5mg BID -continue atorvastatin 40mg daily Problems: Consultation Date/Type/Reason Admit Date/Time Mar 06, 2016 at 15:11 Type of Consultation: Cardiology 24 HR Interval Summary Free Text/Dictation Extubated yesterday. Doing well. Breathing ok. HR better with digoxin load Exam/Review of Systems Vital Signs Vitals Vital Signs Date Time Temp Pulse Resp B/P Pulse Ox O2 Delivery O2 Flow Rate FiO2 03/17/16 09:21 79 20 90 Simple Mask 8.0 03/17/16 07:30 112/67 03/17/16 04:00 98.7 03/16/16 08:39 50 Intake and Output 03/16/16 03/16/16 03/17/16 14:59 22:59 06:59 Intake Total 250 ml 250 ml 400 ml Output Total 1755 ml 720 ml 440 ml Balance -1505 ml -470 ml -40 ml Exam Constitutional: alert, oriented Psych: no complaints Head: atraumatic, normocephalic Neck: jvd (unable to assess) Respiratory: crackles/rales, No clear to auscultation Cardiovascular: edema (1+), No regular rate and rhythm (IRIR), No systolic murmur Gastrointestinal: non-tender, soft 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: nl mental status, nl speech Results Result Diagram: 03/17/16 0445 03/17/16 0445 Results 24 hrs Laboratory Tests Test 03/16/16 12:09 03/16/16 17:27 03/17/16 00:43 03/17/16 04:45 Bedside Glucose 70 130 120 Anion Gap 13 Basophils # 0.0 Basophils % 0.5 Blood Morphology Comment Blood Urea Nitrogen 19 Calcium Level 7.2 L Carbon Dioxide Level 32 H Chloride Level 109 Creatinine 0.65 Eosinophils # 0.2 Eosinophils % 1.9 Glucose Level 102 Hematocrit 35.1 L Hemoglobin 11.1 L Lymphocytes # 1.4 Lymphocytes % 16.7 Magnesium Level 1.6 L Mean Corpuscular Hemoglobin 28.7 L Mean Corpuscular Hemoglobin Concent 31.7 L Mean Corpuscular Volume 90.7 Mean Platelet Volume 8.2 Monocytes # 0.7 Monocytes % 8.4 Neutrophils # 6.2 Neutrophils % 72.5 Nucleated Red Blood Cells # 0.0 Nucleated Red Blood Cells % 0.0 Phosphorus Level 2.9 Platelet Count 239 Potassium Level 2.7 *L Red Blood Count 3.88 L Red Cell Distribution Width 19.0 H Sodium Level 151 H White Blood Count 8.5 Test 03/17/16 06:24 Bedside Glucose 111 Medications Medications Current Medications Salmeterol Xinafoate/ Fluticasone (Advair 250/50 Diskus) 1 inh BID INH Last administered on 03/17/16 09:09; Admin Dose 1 INH; Start 03/06/16 at 21:00 Diltiazem HCl 90 mg 90 mg Q6 PO Last administered on 03/17/16 06:17; Admin Dose 90 MG; Start 03/07/16 at 18:30 Propofol (Diprivan) 100 ml @ 3.816 mls/ hr Q12H IV Last administered on 14:03; Admin Dose 15.264 MLS/HR; Start 03/08/16 at 10:00 Apixaban (Eliquis) 5 mg BID NGT Last administered on 03/17/16 09:09; Admin Dose 5 MG; Start 03/08/16 at 10:50 Atorvastatin Calcium (Lipitor) 40 mg HS NGT Last administered on 03/16/16 20: 37; Admin Dose 40 MG; Start 03/08/16 at 10:50 Spironolactone 12.5 mg 12.5 mg DAILY NGT Last administered on 03/17/16 09:09 ; Admin Dose 12.5 MG; Start 03/08/16 at 10:51 Vancomycin HCl (Vancocin) 250 ml @ 125 mls/hr Q12H IVPB Last administered on 03/17/16at 03:06; Admin Dose 125 MLS/HR; Start 03/09/16 at 03:00 Insulin Glargine (Lantus) 22 unit HS SC Last administered on 03/16/16at 20:38; Admin Dose 22 UNIT; Start 03/08/16 at 21:00 Miscellaneous Information 1 ea NOTE XX ; Start 03/10/16 at 14:30 Glucose (Glutose) 15 gm Q15M PRN PO DECREASED GLUCOSE; Start 03/10/16 at 14:30 Glucose (Glutose) 22.5 gm Q15M PRN PO DECREASED GLUCOSE; Start 03/10/16 at 14: 30 Dextrose (D50w Syringe) 25 ml Q15M PRN IV DECREASED GLUCOSE; Start 03/10/16 at 14:30 Dextrose (D50w Syringe) 50 ml Q15M PRN IV DECREASED GLUCOSE; Start 03/10/16 at 14:30 Glucagon (Glucagen) 1 mg Q15M PRN IM DECREASED GLUCOSE; Start 03/10/16 at 14: 30 Glucose (Glutose) 15 gm Q15M PRN BUCCAL DECREASED GLUCOSE; Start 03/10/16 at 14:30 Acetaminophen (Tylenol Liquid) 650 mg Q4H PRN GTB PAIN AND OR ELEVATED TEMP Last administered on 03/13/16at 00:36; Admin Dose 650 MG; Start 03/11/16 at 12: 30 Labetalol HCl (Labetalol) 20 mg Q2H PRN IV SBP>160 Last administered on at 13:17; Admin Dose 20 MG; Start 03/12/16 at 13:30 Ondansetron HCl (Zofran Inj) 4 mg Q6H PRN IV NAUSEA AND/OR VOMITING Last administered on 03/13/16at 14:00; Admin Dose 4 MG; Start 03/13/16 at 14:00 Insulin Aspart (Novolog Insulin Pen) NOVOLOG *MODERATE* ALGORI... Q6 SC ; Start 03/14/16 at 00:00 Lactobacillus Acidophilus/ Rhamnosus (Culturelle) 1 cap BID NGT Last administered on 03/17/16at 09:09; Admin Dose 1 CAP; Start 03/14/16 at 21:00 Metronidazole (Flagyl) 500 mg Q8 NGT Last administered on 03/17/16at 06:17; Admin Dose 500 MG; Start 03/14/16 at 22:00 Famotidine (Pepcid Iv) 20 mg DAILY IV Last administered on 03/17/16at 09:08; Admin Dose 20 MG; Start 03/16/16 at 09:00 Labetalol HCl (Labetalol) 10 mg Q6 PRN IV ELEVATED BLOOD PRESSURE; Start 03/15 at 18:00 Digoxin 0.25 mg 0.25 mg DAILY@13 PO ; Start 03/17/16 at 13:00 Potassium Chloride (KCl 40 MEQ/250 ML NS) 250 ml @ 62.5 mls/hr Q4H IVPB Last administered on 03/17/16at 09:08; Admin Dose 62.5 MLS/HR; Start 03/17/16 at 07: 00; Stop 03/17/16 at 14:59 AMY SLOAN Mar 17, 2016 11:30
[2016-03-17] MEDS: DIGOXIN 0.25 MG TAB PO SCH (12:43)
[2016-03-17] MEDS: BUMETANIDE 1 MG TAB PO SCH ×2 (12:55→17:36)
[2016-03-17] MEDS: DILTIAZEM (CD) 180 MG CAP PO SCH (12:56)
--- NOTE | 2016-03-17 15:05 | CONS ---
Date/Time of Note Date/Time of Note DATE: 03/17/16 TIME: 15:02 Consult Date/Type/Reason Admit Date/Time Mar 06, 2016 at 15:11 Type of Consultation: Pulm Subjective Comfortable. Stable postextubation no shortness of breath Remains hemodynamically stable this morning Objective Vital Signs Date Time Temp Pulse Resp B/P Pulse Ox O2 Delivery O2 Flow Rate FiO2 03/17/16 12:00 111 03/17/16 09:21 20 90 Simple Mask 8.0 03/17/16 07:30 112/67 03/17/16 04:00 98.7 03/16/16 08:39 50 Intake and Output 03/16/16 03/16/16 03/17/16 14:59 22:59 06:59 Intake Total 250 ml 250 ml 400 ml Output Total 1755 ml 720 ml 440 ml Balance -1505 ml -470 ml -40 ml PHYSICAL EXAMINATION GENERAL: Obese lady on nasal cannula oxygen no respiratory distress VITAL SIGNS: see below. HEENT: Pupils equal, round, and reactive to light. CARDIAC: S1, S2, CHEST: Diminished air entry bilaterally. ABDOMEN: Mildly distended. No bowel sounds. EXTREMITIES: No cyanosis, clubbing edema +1 NEUROLOGIC: No focal deficits. Results/Medications Result Diagram: 03/17/16 0445 03/17/16 0445 Results 24 hrs Laboratory Tests Test 03/16/16 17:27 03/17/16 00:43 03/17/16 04:45 03/17/16 06:24 Bedside Glucose 130 120 111 Anion Gap 13 Basophils # 0.0 Basophils % 0.5 Blood Morphology Comment Blood Urea Nitrogen 19 Calcium Level 7.2 L Carbon Dioxide Level 32 H Chloride Level 109 Creatinine 0.65 Eosinophils # 0.2 Eosinophils % 1.9 Glucose Level 102 Hematocrit 35.1 L Hemoglobin 11.1 L Lymphocytes # 1.4 Lymphocytes % 16.7 Magnesium Level 1.6 L Mean Corpuscular Hemoglobin 28.7 L Mean Corpuscular Hemoglobin Concent 31.7 L Mean Corpuscular Volume 90.7 Mean Platelet Volume 8.2 Monocytes # 0.7 Monocytes % 8.4 Neutrophils # 6.2 Neutrophils % 72.5 Nucleated Red Blood Cells # 0.0 Nucleated Red Blood Cells % 0.0 Phosphorus Level 2.9 Platelet Count 239 Potassium Level 2.7 *L Red Blood Count 3.88 L Red Cell Distribution Width 19.0 H Sodium Level 151 H White Blood Count 8.5 Test 03/17/16 12:30 Bedside Glucose 209 Medications Current Medications Salmeterol Xinafoate/ Fluticasone 1 inh 1 inh BID INH Last administered on 09:09; Admin Dose 1 INH; Start 03/06/16 at 21:00 Propofol (Diprivan) 100 ml @ 3.816 mls/ hr Q12H IV Last administered on at 14:03; Admin Dose 15.264 MLS/HR; Start 03/08/16 at 10:00 Apixaban (Eliquis) 5 mg BID NGT Last administered on 03/17/16 09:09; Admin Dose 5 MG; Start 03/08/16 at 10:50 Atorvastatin Calcium (Lipitor) 40 mg HS NGT Last administered on 03/16/16at 20: 37; Admin Dose 40 MG; Start 03/08/16 at 10:50 Spironolactone 12.5 mg 12.5 mg DAILY NGT Last administered on 03/17/16 09:09 ; Admin Dose 12.5 MG; Start 03/08/16 at 10:51 Vancomycin HCl (Vancocin) 250 ml @ 125 mls/hr Q12H IVPB Last administered on 03/17/16at 03:06; Admin Dose 125 MLS/HR; Start 03/09/16 at 03:00 Insulin Glargine (Lantus) 22 unit HS SC Last administered on 03/16/16at 20:38; Admin Dose 22 UNIT; Start 03/08/16 at 21:00 Miscellaneous Information 1 ea NOTE XX ; Start 03/10/16 at 14:30 Glucose (Glutose) 15 gm Q15M PRN PO DECREASED GLUCOSE; Start 03/10/16 at 14:30 Glucose (Glutose) 22.5 gm Q15M PRN PO DECREASED GLUCOSE; Start 03/10/16 at 14: 30 Dextrose (D50w Syringe) 25 ml Q15M PRN IV DECREASED GLUCOSE; Start 03/10/16 at 14:30 Dextrose (D50w Syringe) 50 ml Q15M PRN IV DECREASED GLUCOSE; Start 03/10/16 at 14:30 Glucagon (Glucagen) 1 mg Q15M PRN IM DECREASED GLUCOSE; Start 03/10/16 at 14: 30 Glucose (Glutose) 15 gm Q15M PRN BUCCAL DECREASED GLUCOSE; Start 03/10/16 at 14:30 Acetaminophen (Tylenol Liquid) 650 mg Q4H PRN GTB PAIN AND OR ELEVATED TEMP Last administered on 03/13/16at 00:36; Admin Dose 650 MG; Start 03/11/16 at 12: 30 Labetalol HCl (Labetalol) 20 mg Q2H PRN IV SBP>160 Last administered on at 13:17; Admin Dose 20 MG; Start 03/12/16 at 13:30 Ondansetron HCl (Zofran Inj) 4 mg Q6H PRN IV NAUSEA AND/OR VOMITING Last administered on 03/13/16 14:00; Admin Dose 4 MG; Start 03/13/16 at 14:00 Insulin Aspart (Novolog Insulin Pen) NOVOLOG *MODERATE* ALGORI... Q6 SC Last administered on 03/17/16at 12:45; Admin Dose 4 UNIT; Start 03/14/16 at 00:00 Lactobacillus Acidophilus/ Rhamnosus (Culturelle) 1 cap BID NGT Last administered on 03/17/16at 09:09; Admin Dose 1 CAP; Start 03/14/16 at 21:00 Metronidazole (Flagyl) 500 mg Q8 NGT Last administered on 03/17/16at 06:17; Admin Dose 500 MG; Start 03/14/16 at 22:00 Famotidine (Pepcid Iv) 20 mg DAILY IV Last administered on 03/17/16at 09:08; Admin Dose 20 MG; Start 03/16/16 at 09:00 Labetalol HCl (Labetalol) 10 mg Q6 PRN IV ELEVATED BLOOD PRESSURE; Start 03/15 at 18:00 Digoxin (Digoxin) 0.25 mg DAILY@13 PO Last administered on 03/17/16at 12:43; Admin Dose 0.25 MG; Start 03/17/16 at 13:00 Diltiazem HCl (Cardizem Cd) 360 mg DAILY PO Last administered on 03/17/16at 12: 56; Admin Dose 360 MG; Start 03/17/16 at 11:30 Assessment/Plan Chief Complaint/Hosp Course IMPRESSION AND PLAN: 1. Hypoxemic hypercap resp failure now stable on nasal cannula oxygen continue nocturnal noninvasive positive pressure ventilation 2. Encephalopathy resolved 3. MICHAEL 4. Sepsis. 5. Electrolyte Imbalance The patient will require: 1. Aspiration precautions and nocturnal noninvasive positive pressure ventilation 2. Antibiotics additional Lasix 3. Correction of hyponatremia 4. Deep vein thrombosis and gastrointestinal prophylaxis. Transfer to telemetry Problems: OSMANI LUIS MD, [facility] Mar 17, 2016 15:04
--- NOTE | 2016-03-17 16:55 | PN ---
Date/Time of Note Date/Time of Note DATE: 03/17/16 TIME: 16:52 Assessment/Plan VTE Prophylaxis VTE Prophylaxis Intervention: LMWH, other (eliquis) Lines/Catheters IV Catheter Type (from Nrsg): PICC Line Central line still needed: Yes (iv access) Urinary Cath still in place: Yes Reason Cath still needed: skin wounds contaminated by urine Assessment/Plan Chief Complaint/Hosp Course A/P 1) Ac Hypoxic Resp Failure; stable; extubated; cont chf/ a fib care. 2) CHF- ac/decompensated/diastolic; mod stable; cont diuretics/ rt control 3) Htn 4) OHS/MICHAEL? 5) M Obesity 6) A Fib rvr; cont anticoagulation 7) COPD 8) Chr Resp failure; home o2 4l 9) Ftt 10) Anemia 11) Abn Ca 125 12) Thyroid nodule 13) Adrenal nodule? 14) Fever- improved; c diff apparently -ve. Problems: Subjective 24 Hr Interval Summary Free Text/Dictation S- doing fair from pul standpoint. HR/ afib moderately controlled. advancing diet/ po meds. Exam/Review of Systems Vital Signs Vitals Vital Signs Date Time Temp Pulse Resp B/P Pulse Ox O2 Delivery O2 Flow Rate FiO2 03/17/16 16:00 120 03/17/16 09:21 20 90 Simple Mask 8.0 03/17/16 07:30 112/67 03/17/16 04:00 98.7 03/16/16 08:39 50 Intake and Output 03/16/16 03/16/16 03/17/16 15:00 23:00 07:00 Intake Total 250 ml 250 ml 400 ml Output Total 1865 ml 630 ml 380 ml Balance -1615 ml -380 ml 20 ml Exam Constitutional: alert Respiratory: diminished breath sounds Cardiovascular: irregular rhythm (no m r g) Gastrointestinal: non-tender (nd; no r r g; obese), soft Extremities: other (no edema) Results Result Diagram: 03/17/165 03/17/165 Results 24 hrs Laboratory Tests Test 03/16/16 17:27 03/17/16 00:43 03/17/16 04:45 03/17/16 06:24 Bedside Glucose 130 120 111 Anion Gap 13 Basophils # 0.0 Basophils % 0.5 Blood Morphology Comment Blood Urea Nitrogen 19 Calcium Level 7.2 L Carbon Dioxide Level 32 H Chloride Level 109 Creatinine 0.65 Eosinophils # 0.2 Eosinophils % 1.9 Glucose Level 102 Hematocrit 35.1 L Hemoglobin 11.1 L Lymphocytes # 1.4 Lymphocytes % 16.7 Magnesium Level 1.6 L Mean Corpuscular Hemoglobin 28.7 L Mean Corpuscular Hemoglobin Concent 31.7 L Mean Corpuscular Volume 90.7 Mean Platelet Volume 8.2 Monocytes # 0.7 Monocytes % 8.4 Neutrophils # 6.2 Neutrophils % 72.5 Nucleated Red Blood Cells # 0.0 Nucleated Red Blood Cells % 0.0 Phosphorus Level 2.9 Platelet Count 239 Potassium Level 2.7 *L Red Blood Count 3.88 L Red Cell Distribution Width 19.0 H Sodium Level 151 H White Blood Count 8.5 Test 03/17/16 12:30 Bedside Glucose 209 Medications Medications Current Medications Salmeterol Xinafoate/ Fluticasone 1 inh 1 inh BID INH Last administered on 09:09; Admin Dose 1 INH; Start 03/06/16 at 21:00 Propofol (Diprivan) 100 ml @ 3.816 mls/ hr Q12H IV Last administered on 14:03; Admin Dose 15.264 MLS/HR; Start 03/08/16 at 10:00 Apixaban (Eliquis) 5 mg BID NGT Last administered on 03/17/16 09:09; Admin Dose 5 MG; Start 03/08/16 at 10:50 Atorvastatin Calcium (Lipitor) 40 mg HS NGT Last administered on 03/16/16 20: 37; Admin Dose 40 MG; Start 03/08/16 at 10:50 Spironolactone 12.5 mg 12.5 mg DAILY NGT Last administered on 03/17/16 09:09 ; Admin Dose 12.5 MG; Start 03/08/16 at 10:51 Vancomycin HCl (Vancocin) 250 ml @ 125 mls/hr Q12H IVPB Last administered on 03/17/16 15:08; Admin Dose 125 MLS/HR; Start 03/09/16 at 03:00 Insulin Glargine (Lantus) 22 unit HS SC Last administered on 03/16/16 20:38; Admin Dose 22 UNIT; Start 03/08/16 at 21:00 Miscellaneous Information 1 ea NOTE XX ; Start 03/10/16 at 14:30 Glucose (Glutose) 15 gm Q15M PRN PO DECREASED GLUCOSE; Start 03/10/16 at 14:30 Glucose (Glutose) 22.5 gm Q15M PRN PO DECREASED GLUCOSE; Start 03/10/16 at 14: 30 Dextrose (D50w Syringe) 25 ml Q15M PRN IV DECREASED GLUCOSE; Start 03/10/16 at 14:30 Dextrose (D50w Syringe) 50 ml Q15M PRN IV DECREASED GLUCOSE; Start 03/10/16 at 14:30 Glucagon (Glucagen) 1 mg Q15M PRN IM DECREASED GLUCOSE; Start 03/10/16 at 14: 30 Glucose (Glutose) 15 gm Q15M PRN BUCCAL DECREASED GLUCOSE; Start 03/10/16 at 14:30 Acetaminophen (Tylenol Liquid) 650 mg Q4H PRN GTB PAIN AND OR ELEVATED TEMP Last administered on 03/13/16at 00:36; Admin Dose 650 MG; Start 03/11/16 at 12: 30 Labetalol HCl (Labetalol) 20 mg Q2H PRN IV SBP>160 Last administered on at 13:17; Admin Dose 20 MG; Start 03/12/16 at 13:30 Ondansetron HCl (Zofran Inj) 4 mg Q6H PRN IV NAUSEA AND/OR VOMITING Last administered on 03/13/16at 14:00; Admin Dose 4 MG; Start 03/13/16 at 14:00 Insulin Aspart (Novolog Insulin Pen) NOVOLOG *MODERATE* ALGORI... Q6 SC Last administered on 03/17/16at 12:45; Admin Dose 4 UNIT; Start 03/14/16 at 00:00 Lactobacillus Acidophilus/ Rhamnosus (Culturelle) 1 cap BID NGT Last administered on 03/17/16at 09:09; Admin Dose 1 CAP; Start 03/14/16 at 21:00 Metronidazole (Flagyl) 500 mg Q8 NGT Last administered on 03/17/16at 15:08; Admin Dose 500 MG; Start 03/14/16 at 22:00 Famotidine (Pepcid Iv) 20 mg DAILY IV Last administered on 03/17/16at 09:08; Admin Dose 20 MG; Start 03/16/16 at 09:00 Labetalol HCl (Labetalol) 10 mg Q6 PRN IV ELEVATED BLOOD PRESSURE; Start 03/15 at 18:00 Digoxin (Digoxin) 0.25 mg DAILY@13 PO Last administered on 03/17/16at 12:43; Admin Dose 0.25 MG; Start 03/17/16 at 13:00 Diltiazem HCl (Cardizem Cd) 360 mg DAILY PO Last administered on 03/17/16at 12: 56; Admin Dose 360 MG; Start 03/17/16 at 11:30 ROMI RILEY MD Mar 17, 2016 16:55
[2016-03-17] MEDS: ATORVASTATIN 40 MG TAB NGT SCH (20:12)
[2016-03-17] MEDS: INSULIN GLARGINE [LANtus] 3 ML PEN SC SCH (20:17)
[2016-03-18] VITALS (23 sets, daily range): BP systolic 96–136; BP diastolic 51–105; PULSE 95–134; RESP 17–28
[2016-03-18] MEDS: IPRATROPIUM (NEB) 0.5 MG/2.5 ML AMP HHN SCH ×5 (00:40→17:09)
[2016-03-18] MEDS: LEVALBUTEROL (NEB) 1.25 MG/0.5 ML AMP HHN SCH ×5 (00:40→17:09)
[2016-03-18] MEDS: VANCOMYCIN 1 GM in NS 250 ML IVPB SCH (02:52)
[2016-03-18] MEDS ORDERED: SOD CHLORIDE 0.9% 500 ML IV ONE (05:00)
[2016-03-18 05:11] LABS: BASOPHIL # 0.1 10^3/ul (0.0-0.1); BASOPHILS % 0.4 % (0.0-2.0); EOSINOPHILS # 0.3 10^3/ul (0.0-0.5); EOSINOPHILS % 2.8 % (0.0-7.0); HEMATOCRIT 39.1 % (37.0-47.0); HEMOGLOBIN 12.2 g/dl (12.0-16.0); LYMPHOCYTES # 1.6 10^3/ul (0.8-2.9); LYMPHOCYTES % 14.1 % (15.0-51.0); MEAN CORPUSCULAR HEMOGLOBIN 28.3 pg (29.0-33.0); MEAN CORPUSCULAR HGB CONC 31.1 g/dl (32.0-37.0); MEAN CORPUSCULAR VOLUME 90.9 fl (82.0-101.0); MEAN PLATELET VOLUME 8.2 fl (7.4-10.4); MONOCYTE # 0.7 10^3/ul (0.3-0.9); MONOCYTES % 6.3 % (0.0-11.0); NEUTROPHIL # 8.8 10^3/ul (1.6-7.5); NEUTROPHILS % 76.4 % (39.0-77.0); PLATELET COUNT 297 10^3/UL (140-440); RED CELL DISTRIBUTION WIDTH 19.1 % (11.5-14.5); UNCORRECTED WBC 11.6 10^3/ul (4.8-10.8); WHITE BLOOD COUNT 11.6 10^3/ul (4.8-10.8)
[2016-03-18 05:22] LABS: CREATININE 0.67 mg/dl (0.44-1.00)
[2016-03-18 05:23] LABS: PHOSPHORUS 3.7 mg/dl (2.5-4.9)
[2016-03-18 05:24] LABS: CALCIUM 7.7 mg/dl (8.4-10.2)
[2016-03-18 05:29] LABS: CONDITION 1; LH ANALYZER COMMENTS 1
[2016-03-18] MEDS: metroNIDAZOLE 500 MG TAB NGT SCH ×3 (05:35→21:16)
[2016-03-18] MEDS: INSULIN ASPART [NOVOLOG] 3 ML PEN SC SCH ×4 (05:40→21:21)
[2016-03-18 05:42] LABS: POTASSIUM 2.9 mmol/L (3.5-5.1)
[2016-03-18] MEDS: BUMETANIDE 1 MG TAB PO SCH ×2 (05:53→18:43)
[2016-03-18] MEDS ORDERED: POTASSIUM CHLORIDE (SR) 20 MEQ TAB PO ONE (06:02)
[2016-03-18] MEDS ORDERED: POTASSIUM CHLORIDE 250 ML IVPB ONE (06:30)
[2016-03-18] MEDS ORDERED: DILTIAZEM 25 MG INJ IV ONE (06:30)
--- NOTE | 2016-03-18 08:54 | CONS ---
Date/Time of Note Date/Time of Note DATE: 03/18/16 TIME: 08:48 Assessment/Plan Assessment/Plan Chief Complaint/Hosp Course Acute on chronic diastolic heart failure - echocardiogram 11/14/2015 showed LVEF 55%, mild diastolic dysfunction. Still decompensated Paroxysmal atrial fibrillation - rates better after addition of digoxin but now worse after extubation Acute on chronic hypoxic respiratory failure - intubated, now extubated 03/16 Pneumonia - left pleural effusion also noted Chronic obstructive pulmonary disease exacerbation - on 4 liters home oxygen at baseline Hypertension Dyslipidemia Diabetes mellitus -though beta blockers are not an ideal option in the setting of her COPD, will initiate a very small dose and uptitrate if she does not have bronchospasm as her HR is still uncontrolled and will worsen her CHF if sustained (diltiazem and digoxin are max dose. Amio unlikely to convert and chronically is not a good option either with her COPD) -start trial dose of metoprolol 12.5mg q8h and monitor for bronchospasm, uptitrate as tolerated -continue digoxin 250mcg -check dig trough level today -diltiazem 360mg daily -bumex 1mg BID PO as equivalent bioavailability to IV -check CXR -replete K -continue spironolactone 12.5mg daily -continue Eliquis 5mg BID -continue atorvastatin 40mg daily Problems: Consultation Date/Type/Reason Admit Date/Time Mar 06, 2016 at 15:11 Type of Consultation: Cardiology 24 HR Interval Summary Free Text/Dictation HR uncontrolled after extubation. Pt herself is asymptomatic and denies SOB. Exam/Review of Systems Vital Signs Vitals Vital Signs Date Time Temp Pulse Resp B/P Pulse Ox O2 Delivery O2 Flow Rate FiO2 03/18/16 07:30 110 22 122/66 90 03/18/16 07:00 Nasal Cannula 4.0 03/18/16 04:00 98.5 03/16/16 08:39 50 Intake and Output 03/17/16 03/17/16 03/18/16 15:00 23:00 07:00 Intake Total 300 ml 375 ml Output Total 25 ml 900 ml 620 ml Balance -25 ml -600 ml -245 ml Exam Constitutional: alert, oriented Psych: no complaints Head: atraumatic, normocephalic Neck: No jvd (unable to assess ) Respiratory: crackles/rales, No clear to auscultation Cardiovascular: edema (trace), No regular rate and rhythm (IRIR) 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: nl mental status, nl speech Results Result Diagram: 03/18/16 0435 03/18/16 0435 Results 24 hrs Laboratory Tests Test 03/17/16 12:30 03/17/16 17:01 03/17/16 20:13 03/18/16 00:33 Bedside Glucose 209 192 214 135 Test 03/18/16 04:35 03/18/16 05:37 Anion Gap 12 Basophils # 0.1 Basophils % 0.4 Blood Morphology Comment Blood Urea Nitrogen 15 Calcium Level 7.7 L Carbon Dioxide Level 32 H Chloride Level 105 Creatinine 0.67 Eosinophils # 0.3 Eosinophils % 2.8 Glucose Level 138 Hematocrit 39.1 Hemoglobin 12.2 Lymphocytes # 1.6 Lymphocytes % 14.1 L Magnesium Level 2.0 Mean Corpuscular Hemoglobin 28.3 L Mean Corpuscular Hemoglobin Concent 31.1 L Mean Corpuscular Volume 90.9 Mean Platelet Volume 8.2 Monocytes # 0.7 Monocytes % 6.3 Neutrophils # 8.8 H Neutrophils % 76.4 Nucleated Red Blood Cells # 0.0 Nucleated Red Blood Cells % 0.0 Phosphorus Level 3.7 Platelet Count 297 # Potassium Level 2.9 *L Red Blood Count 4.30 Red Cell Distribution Width 19.1 H Sodium Level 146 H White Blood Count 11.6 #H Bedside Glucose 146 Medications Medications Current Medications Salmeterol Xinafoate/ Fluticasone (Advair 250/50 Diskus) 1 inh BID INH Last administered on 03/17/16at 20:12; Admin Dose 1 INH; Start 03/06/16 at 21:00 Apixaban (Eliquis) 5 mg BID NGT Last administered on 03/17/16at 20:12; Admin Dose 5 MG; Start 03/08/16 at 10:50 Atorvastatin Calcium (Lipitor) 40 mg HS NGT Last administered on 03/17/16at 20: 12; Admin Dose 40 MG; Start 03/08/16 at 10:50 Spironolactone 12.5 mg 12.5 mg DAILY NGT Last administered on 03/17/16at 09:09 ; Admin Dose 12.5 MG; Start 03/08/16 at 10:51 Vancomycin HCl (Vancocin) 250 ml @ 125 mls/hr Q12H IVPB Last administered on 03/18/16at 02:52; Admin Dose 125 MLS/HR; Start 03/09/16 at 03:00 Insulin Glargine (Lantus) 22 unit HS SC Last administered on 03/17/16at 20:17; Admin Dose 22 UNIT; Start 03/08/16 at 21:00 Miscellaneous Information 1 ea NOTE XX ; Start 03/10/16 at 14:30 Glucose (Glutose) 15 gm Q15M PRN PO DECREASED GLUCOSE; Start 03/10/16 at 14:30 Glucose (Glutose) 22.5 gm Q15M PRN PO DECREASED GLUCOSE; Start 03/10/16 at 14: 30 Dextrose (D50w Syringe) 25 ml Q15M PRN IV DECREASED GLUCOSE; Start 03/10/16 at 14:30 Dextrose (D50w Syringe) 50 ml Q15M PRN IV DECREASED GLUCOSE; Start 03/10/16 at 14:30 Glucagon (Glucagen) 1 mg Q15M PRN IM DECREASED GLUCOSE; Start 03/10/16 at 14: 30 Glucose (Glutose) 15 gm Q15M PRN BUCCAL DECREASED GLUCOSE; Start 03/10/16 at 14:30 Acetaminophen (Tylenol Liquid) 650 mg Q4H PRN GTB PAIN AND OR ELEVATED TEMP Last administered on 03/13/16at 00:36; Admin Dose 650 MG; Start 03/11/16 at 12: 30 Labetalol HCl (Labetalol) 20 mg Q2H PRN IV SBP>160 Last administered on at 13:17; Admin Dose 20 MG; Start 03/12/16 at 13:30 Ondansetron HCl (Zofran Inj) 4 mg Q6H PRN IV NAUSEA AND/OR VOMITING Last administered on 03/13/16at 14:00; Admin Dose 4 MG; Start 03/13/16 at 14:00 Insulin Aspart (Novolog Insulin Pen) NOVOLOG *MODERATE* ALGORI... Q6 SC Last administered on 03/18/16at 05:40; Admin Dose 2 UNIT; Start 03/14/16 at 00:00 Lactobacillus Acidophilus/ Rhamnosus (Culturelle) 1 cap BID NGT Last administered on 03/17/16at 20:12; Admin Dose 1 CAP; Start 03/14/16 at 21:00 Metronidazole (Flagyl) 500 mg Q8 NGT Last administered on 03/18/16at 05:35; Admin Dose 500 MG; Start 03/14/16 at 22:00 Famotidine (Pepcid Iv) 20 mg DAILY IV Last administered on 03/17/16at 09:08; Admin Dose 20 MG; Start 03/16/16 at 09:00 Labetalol HCl (Labetalol) 10 mg Q6 PRN IV ELEVATED BLOOD PRESSURE; Start 03/15 at 18:00 Digoxin (Digoxin) 0.25 mg DAILY@13 PO Last administered on 03/17/16at 12:43; Admin Dose 0.25 MG; Start 03/17/16 at 13:00 Diltiazem HCl (Cardizem Cd) 360 mg DAILY PO Last administered on 03/17/16at 12: 56; Admin Dose 360 MG; Start 03/17/16 at 11:30 Thiamine HCl 100 mg 100 mg DAILY PO ; Start 03/18/16 at 09:00 Potassium Chloride (KCl 40 MEQ/250 ML NS) 250 ml @ 62.5 mls/hr ONCE ONCE IVPB Last administered on 03/18/16at 06:21; Admin Dose 62.5 MLS/HR; Start at 06:30; Stop 03/18/16 at 10:29 Miscellaneous Information (*Rx Drug Level Order Reminder*) VANCO TR LEVEL PRIOR... ONCE ONCE XX ; Start 03/18/16 at 14:00; Stop 03/18/16 at 14:01 AMY SLOAN Mar 18, 2016 08:54
[2016-03-18] MEDS ORDERED: POTASSIUM CHLORIDE 20 MEQ POWDER FOR ORAL SOLN PO ONE (09:00)
--- NOTE | 2016-03-18 09:17 | RADRPT ---
PROCEDURE: Chest Radiograph. CLINICAL INDICATION: CHF. Pneumonia. TECHNIQUE: Single frontal chest radiograph. COMPARISON: Chest radiograph 03/15/2016 FINDINGS: An endotracheal and nasogastric tube have been removed. A right upper extremity PICC remains in roly ce with distal tip in the region of the cavoatrial junction. The patient is rotated. Heart size is p oorly evaluated but appears enlarged. Atherosclerotic calcifications are present . There is stable h azy opacities throughout the bilateral lung solis consistent with edema or infiltrates, not signifi cantly changed. Small bilateral pleural effusions are likely present. IMPRESSION: Interval removal of endotracheal and this passed with TIPS. Otherwise, grossly stable radiographic appearance of chest compared to 03/15/2016. Persistent cardiomegaly and hazy left opacity likely rep resenting small effusion with atelectasis. RPTAT: JJ .Leroy Escalante MD, Date Time Electronically viewed and signed by .Leroy Escalante MD, on 03/18/2016 09:17 .A/
[2016-03-18] MEDS: SALMETEROL/FLUTICASONE 250/50 INHA INH SCH ×2 (10:32→21:00)
[2016-03-18] MEDS: SPIRONOLACTONE 25 MG TAB NGT SCH (10:33)
[2016-03-18] MEDS: LACTOBACILLUS RHAMNOSUS CAP NGT SCH ×2 (10:33→21:00)
[2016-03-18] MEDS: FAMOTIDINE 20 MG INJ IV SCH (10:33)
[2016-03-18] MEDS: APIXABAN 5 MG TABLET NGT SCH ×2 (10:34→21:17)
[2016-03-18] MEDS: DILTIAZEM (CD) 180 MG CAP PO SCH (10:35)
[2016-03-18] MEDS: METOPROLOL 25 MG TAB PO SCH ×3 (10:36→21:17)
[2016-03-18] MEDS: THIAMINE 100 MG TAB PO SCH (10:37)
--- NOTE | 2016-03-18 10:42 | CONS ---
Date/Time of Note Date/Time of Note DATE: 03/18/16 TIME: 10:41 Consult Date/Type/Reason Admit Date/Time Mar 06, 2016 at 15:11 Type of Consultation: pulmonary Subjective Patient stable no new events Tachycardia overnight Desaturation when she eats Patient states she does not tolerate noninvasive positive pressure ventilation secondary to claustrophobia Objective Vital Signs Date Time Temp Pulse Resp B/P Pulse Ox O2 Delivery O2 Flow Rate FiO2 03/18/16 09:41 133 26 92 Nasal Cannula 4.0 03/18/16 07:30 122/66 03/18/16 04:00 98.5 03/16/16 08:39 50 Intake and Output 03/17/16 03/17/16 03/18/16 15:00 23:00 07:00 Intake Total 300 ml 375 ml Output Total 25 ml 900 ml 620 ml Balance -25 ml -600 ml -245 ml Results/Medications Result Diagram: 03/18/16 0435 03/18/16 0435 Results 24 hrs Laboratory Tests Test 03/17/16 12:30 03/17/16 17:01 03/17/16 20:13 03/18/16 00:33 Bedside Glucose 209 192 214 135 Test 03/18/16 04:35 03/18/16 05:37 Anion Gap 12 Basophils # 0.1 Basophils % 0.4 Blood Morphology Comment Blood Urea Nitrogen 15 Calcium Level 7.7 L Carbon Dioxide Level 32 H Chloride Level 105 Creatinine 0.67 Eosinophils # 0.3 Eosinophils % 2.8 Glucose Level 138 Hematocrit 39.1 Hemoglobin 12.2 Lymphocytes # 1.6 Lymphocytes % 14.1 L Magnesium Level 2.0 Mean Corpuscular Hemoglobin 28.3 L Mean Corpuscular Hemoglobin Concent 31.1 L Mean Corpuscular Volume 90.9 Mean Platelet Volume 8.2 Monocytes # 0.7 Monocytes % 6.3 Neutrophils # 8.8 H Neutrophils % 76.4 Nucleated Red Blood Cells # 0.0 Nucleated Red Blood Cells % 0.0 Phosphorus Level 3.7 Platelet Count 297 # Potassium Level 2.9 *L Red Blood Count 4.30 Red Cell Distribution Width 19.1 H Sodium Level 146 H White Blood Count 11.6 #H Bedside Glucose 146 Medications Current Medications Salmeterol Xinafoate/ Fluticasone (Advair 250/50 Diskus) 1 inh BID INH Last administered on 03/18/16at 10:32; Admin Dose 1 INH; Start 03/06/16 at 21:00 Apixaban (Eliquis) 5 mg BID NGT Last administered on 03/18/16at 10:34; Admin Dose 5 MG; Start 03/08/16 at 10:50 Atorvastatin Calcium (Lipitor) 40 mg HS NGT Last administered on 03/17/16at 20: 12; Admin Dose 40 MG; Start 03/08/16 at 10:50 Spironolactone 12.5 mg 12.5 mg DAILY NGT Last administered on 03/18/16at 10:33 ; Admin Dose 12.5 MG; Start 03/08/16 at 10:51 Vancomycin HCl (Vancocin) 250 ml @ 125 mls/hr Q12H IVPB Last administered on 03/18/16 02:52; Admin Dose 125 MLS/HR; Start 03/09/16 at 03:00 Insulin Glargine (Lantus) 22 unit HS SC Last administered on 03/17/16at 20:17; Admin Dose 22 UNIT; Start 03/08/16 at 21:00 Miscellaneous Information 1 ea NOTE XX ; Start 03/10/16 at 14:30 Glucose (Glutose) 15 gm Q15M PRN PO DECREASED GLUCOSE; Start 03/10/16 at 14:30 Glucose (Glutose) 22.5 gm Q15M PRN PO DECREASED GLUCOSE; Start 03/10/16 at 14: 30 Dextrose (D50w Syringe) 25 ml Q15M PRN IV DECREASED GLUCOSE; Start 03/10/16 at 14:30 Dextrose (D50w Syringe) 50 ml Q15M PRN IV DECREASED GLUCOSE; Start 03/10/16 at 14:30 Glucagon (Glucagen) 1 mg Q15M PRN IM DECREASED GLUCOSE; Start 03/10/16 at 14: 30 Glucose (Glutose) 15 gm Q15M PRN BUCCAL DECREASED GLUCOSE; Start 03/10/16 at 14:30 Acetaminophen (Tylenol Liquid) 650 mg Q4H PRN GTB PAIN AND OR ELEVATED TEMP Last administered on 03/13/16at 00:36; Admin Dose 650 MG; Start 03/11/16 at 12: 30 Labetalol HCl (Labetalol) 20 mg Q2H PRN IV SBP>160 Last administered on at 13:17; Admin Dose 20 MG; Start 03/12/16 at 13:30 Ondansetron HCl (Zofran Inj) 4 mg Q6H PRN IV NAUSEA AND/OR VOMITING Last administered on 03/13/16at 14:00; Admin Dose 4 MG; Start 03/13/16 at 14:00 Insulin Aspart (Novolog Insulin Pen) NOVOLOG *MODERATE* ALGORI... Q6 SC Last administered on 03/18/16at 05:40; Admin Dose 2 UNIT; Start 03/14/16 at 00:00 Lactobacillus Acidophilus/ Rhamnosus (Culturelle) 1 cap BID NGT Last administered on 03/18/16at 10:33; Admin Dose 1 CAP; Start 03/14/16 at 21:00 Metronidazole (Flagyl) 500 mg Q8 NGT Last administered on 03/18/16at 05:35; Admin Dose 500 MG; Start 03/14/16 at 22:00 Famotidine (Pepcid Iv) 20 mg DAILY IV Last administered on 03/18/16at 10:33; Admin Dose 20 MG; Start 03/16/16 at 09:00 Labetalol HCl (Labetalol) 10 mg Q6 PRN IV ELEVATED BLOOD PRESSURE; Start 03/15 at 18:00 Digoxin (Digoxin) 0.25 mg DAILY@13 PO Last administered on 03/17/16at 12:43; Admin Dose 0.25 MG; Start 03/17/16 at 13:00 Diltiazem HCl (Cardizem Cd) 360 mg DAILY PO Last administered on 03/18/16at 10: 35; Admin Dose 360 MG; Start 03/17/16 at 11:30 Thiamine HCl (Vitamin B1) 100 mg DAILY PO Last administered on 03/18/16at 10:37 ; Admin Dose 100 MG; Start 03/18/16 at 09:00 Miscellaneous Information (*Rx Drug Level Order Reminder*) VANCO TR LEVEL PRIOR... ONCE ONCE XX ; Start 03/18/16 at 14:00; Stop 03/18/16 at 14:01 Metoprolol Tartrate (Lopressor) 12.5 mg Q8 PO Last administered on 03/18/16at 10:36; Admin Dose 12.5 MG; Start 03/18/16 at 09:00 Assessment/Plan Chief Complaint/Hosp Course IMPRESSION AND PLAN: 1. Hypoxemic hypercap resp failure now stable on nasal cannula oxygen continue nocturnal noninvasive positive pressure ventilation 2. Encephalopathy resolved 3. MICHAEL 4. Sepsis. 5. Electrolyte Imbalance The patient will require: 1. Aspiration precautions and nocturnal noninvasive positive pressure ventilation 2. Antibiotics additional Lasix 3. Correction of hyponatremia 4. Deep vein thrombosis and gastrointestinal prophylaxis. Transfer to telemetry Problems: OSMANI LUIS MD, [facility] Mar 18, 2016 10:42
[2016-03-18] MEDS: DIGOXIN 0.25 MG TAB PO SCH (14:28)
--- NOTE | 2016-03-18 14:52 | PN ---
Date/Time of Note Date/Time of Note DATE: 03/18/16 TIME: 14:50 Assessment/Plan VTE Prophylaxis VTE Prophylaxis Intervention: other (eliquis) Lines/Catheters IV Catheter Type (from Nrsg): PICC Line Central line still needed: Yes (iv access) Urinary Cath still in place: Yes Reason Cath still needed: skin wounds contaminated by urine Assessment/Plan Chief Complaint/Hosp Course A/P 1) Ac Hypoxic Resp Failure; mod stable; extubated; risk of re-intubation, but appears to want full care. insight is questionable. cont chf/ a fib care. 2) CHF- ac/decompensated/diastolic; mod stable; cont diuretics/ rt control 3) Htn 4) OHS/MICHAEL? 5) M Obesity 6) A Fib rvr; cont eliquis 7) COPD 8) Chr Resp failure; home o2 4l 9) Ftt 10) Anemia 11) Abn Ca 125 12) Thyroid nodule 13) Adrenal nodule? 14) Fever- improved; c diff apparently -ve. 15) Diarrhea; finish flagyl Problems: Subjective 24 Hr Interval Summary Free Text/Dictation S- desat's while eating. rvr on monitor. +bs, tolerating diet. Exam/Review of Systems Vital Signs Vitals Vital Signs Date Time Temp Pulse Resp B/P Pulse Ox O2 Delivery O2 Flow Rate FiO2 03/18/16 12:43 121 28 95 Nasal Cannula 3.0 03/18/16 08:00 98.9 125/71 03/16/16 08:39 50 Intake and Output 03/17/16 03/17/16 03/18/16 15:00 23:00 07:00 Intake Total 300 ml 375 ml Output Total 25 ml 900 ml 620 ml Balance -25 ml -600 ml -245 ml Exam Constitutional: alert Respiratory: diminished breath sounds, intercostal retraction Cardiovascular: irregular rhythm, jugular venous distention (JVD) Gastrointestinal: non-tender, soft Extremities: other (no edema) Results Result Diagram: 03/18/16 0435 03/18/16 0435 Results 24 hrs Laboratory Tests Test 03/17/16 17:01 03/17/16 20:13 03/18/16 00:33 03/18/16 04:35 Bedside Glucose 192 214 135 Anion Gap 12 Basophils # 0.1 Basophils % 0.4 Blood Morphology Comment Blood Urea Nitrogen 15 Calcium Level 7.7 L Carbon Dioxide Level 32 H Chloride Level 105 Creatinine 0.67 Eosinophils # 0.3 Eosinophils % 2.8 Glucose Level 138 Hematocrit 39.1 Hemoglobin 12.2 Lymphocytes # 1.6 Lymphocytes % 14.1 L Magnesium Level 2.0 Mean Corpuscular Hemoglobin 28.3 L Mean Corpuscular Hemoglobin Concent 31.1 L Mean Corpuscular Volume 90.9 Mean Platelet Volume 8.2 Monocytes # 0.7 Monocytes % 6.3 Neutrophils # 8.8 H Neutrophils % 76.4 Nucleated Red Blood Cells # 0.0 Nucleated Red Blood Cells % 0.0 Phosphorus Level 3.7 Platelet Count 297 # Potassium Level 2.9 *L Red Blood Count 4.30 Red Cell Distribution Width 19.1 H Sodium Level 146 H White Blood Count 11.6 #H Test 03/18/16 05:37 03/18/16 11:02 03/18/16 12:03 03/18/16 14:17 Bedside Glucose 146 214 Digoxin Level 0.8 L Vancomycin Level Trough 11.5 Medications Medications Current Medications Salmeterol Xinafoate/ Fluticasone (Advair 250/50 Diskus) 1 inh BID INH Last administered on 03/18/16at 10:32; Admin Dose 1 INH; Start 03/06/16 at 21:00 Apixaban (Eliquis) 5 mg BID NGT Last administered on 03/18/16at 10:34; Admin Dose 5 MG; Start 03/08/16 at 10:50 Atorvastatin Calcium (Lipitor) 40 mg HS NGT Last administered on 03/17/16at 20: 12; Admin Dose 40 MG; Start 03/08/16 at 10:50 Spironolactone 12.5 mg 12.5 mg DAILY NGT Last administered on 03/18/16at 10:33 ; Admin Dose 12.5 MG; Start 03/08/16 at 10:51 Vancomycin HCl (Vancocin) 250 ml @ 125 mls/hr Q12H IVPB Last administered on 03/18/16at 02:52; Admin Dose 125 MLS/HR; Start 03/09/16 at 03:00 Insulin Glargine (Lantus) 22 unit HS SC Last administered on 03/17/16at 20:17; Admin Dose 22 UNIT; Start 03/08/16 at 21:00 Miscellaneous Information 1 ea NOTE XX ; Start 03/10/16 at 14:30 Glucose (Glutose) 15 gm Q15M PRN PO DECREASED GLUCOSE; Start 03/10/16 at 14:30 Glucose (Glutose) 22.5 gm Q15M PRN PO DECREASED GLUCOSE; Start 03/10/16 at 14: 30 Dextrose (D50w Syringe) 25 ml Q15M PRN IV DECREASED GLUCOSE; Start 03/10/16 at 14:30 Dextrose (D50w Syringe) 50 ml Q15M PRN IV DECREASED GLUCOSE; Start 03/10/16 at 14:30 Glucagon (Glucagen) 1 mg Q15M PRN IM DECREASED GLUCOSE; Start 03/10/16 at 14: 30 Glucose (Glutose) 15 gm Q15M PRN BUCCAL DECREASED GLUCOSE; Start 03/10/16 at 14:30 Acetaminophen (Tylenol Liquid) 650 mg Q4H PRN GTB PAIN AND OR ELEVATED TEMP Last administered on 03/13/16at 00:36; Admin Dose 650 MG; Start 03/11/16 at 12: 30 Labetalol HCl (Labetalol) 20 mg Q2H PRN IV SBP>160 Last administered on at 13:17; Admin Dose 20 MG; Start 03/12/16 at 13:30 Ondansetron HCl (Zofran Inj) 4 mg Q6H PRN IV NAUSEA AND/OR VOMITING Last administered on 03/13/16at 14:00; Admin Dose 4 MG; Start 03/13/16 at 14:00 Insulin Aspart (Novolog Insulin Pen) NOVOLOG *MODERATE* ALGORI... Q6 SC Last administered on 03/18/16at 12:09; Admin Dose 4 UNIT; Start 03/14/16 at 00:00 Lactobacillus Acidophilus/ Rhamnosus (Culturelle) 1 cap BID NGT Last administered on 03/18/16at 10:33; Admin Dose 1 CAP; Start 03/14/16 at 21:00 Metronidazole (Flagyl) 500 mg Q8 NGT Last administered on 03/18/16at 14:29; Admin Dose 500 MG; Start 03/14/16 at 22:00 Famotidine (Pepcid Iv) 20 mg DAILY IV Last administered on 03/18/16at 10:33; Admin Dose 20 MG; Start 03/16/16 at 09:00 Labetalol HCl (Labetalol) 10 mg Q6 PRN IV ELEVATED BLOOD PRESSURE; Start 03/15 at 18:00 Digoxin (Digoxin) 0.25 mg DAILY@13 PO Last administered on 03/18/16at 14:28; Admin Dose 0.25 MG; Start 03/17/16 at 13:00 Diltiazem HCl (Cardizem Cd) 360 mg DAILY PO Last administered on 03/18/16at 10: 35; Admin Dose 360 MG; Start 03/17/16 at 11:30 Thiamine HCl (Vitamin B1) 100 mg DAILY PO Last administered on 03/18/16at 10:37 ; Admin Dose 100 MG; Start 03/18/16 at 09:00 Metoprolol Tartrate (Lopressor) 12.5 mg Q8 PO Last administered on 03/18/16at 10:36; Admin Dose 12.5 MG; Start 03/18/16 at 09:00 ROMI RILEY MD Mar 18, 2016 14:52
[2016-03-18] MEDS ORDERED: LEVALBUTEROL (NEB) 0.63 MG/3 ML AMP HHN PRN (15:30)
[2016-03-18] MEDS: ATORVASTATIN 40 MG TAB NGT SCH (21:16)
[2016-03-18] MEDS: INSULIN GLARGINE [LANtus] 3 ML PEN SC SCH (21:19)
[2016-03-19] VITALS (12 sets, daily range): BP systolic 101–145; BP diastolic 58–72; PULSE 94–125; RESP 19–20
[2016-03-19] MEDS: LEVALBUTEROL (NEB) 1.25 MG/0.5 ML AMP HHN SCH ×3 (02:27→16:17)
[2016-03-19] MEDS: IPRATROPIUM (NEB) 0.5 MG/2.5 ML AMP HHN SCH ×3 (02:27→16:17)
[2016-03-19] MEDS: INSULIN ASPART [NOVOLOG] 3 ML PEN SC SCH ×4 (06:00→23:27)
[2016-03-19] MEDS: metroNIDAZOLE 500 MG TAB NGT SCH ×3 (06:17→20:38)
[2016-03-19] MEDS: METOPROLOL 25 MG TAB PO SCH ×3 (06:18→23:25)
[2016-03-19] MEDS: BUMETANIDE 1 MG TAB PO SCH ×2 (06:18→17:48)
[2016-03-19] MEDS: APIXABAN 5 MG TABLET NGT SCH ×2 (09:00→20:38)
[2016-03-19] MEDS: LACTOBACILLUS RHAMNOSUS CAP NGT SCH ×2 (09:00→20:38)
[2016-03-19] MEDS: SPIRONOLACTONE 25 MG TAB NGT SCH (09:00)
[2016-03-19] MEDS: SALMETEROL/FLUTICASONE 250/50 INHA INH SCH ×2 (09:00→20:39)
[2016-03-19] MEDS: THIAMINE 100 MG TAB PO SCH (10:08)
[2016-03-19] MEDS: FAMOTIDINE 20 MG INJ IV SCH (10:08)
[2016-03-19] MEDS: DILTIAZEM (CD) 180 MG CAP PO SCH (10:12)
--- NOTE | 2016-03-19 13:07 | PN ---
DATE: 03/19/2016 SUBJECTIVE: Patient remained stable overnight. No new events this morning. She is awake, alert, c omfortable, requesting removal of the rectal tube. No significant desaturation. PHYSICAL EXAMINATION: VITAL SIGNS: Temperature 98, pulse is 100, blood pressure 106/65, O2 saturation 94% on 4 liters. NECK: Supple. No JVD or lymphadenopathy. CARDIAC EXAM: S1, S2. No added sounds or murmurs. CHEST: Diminished air entry, both lung bases. ABDOMEN: Obese, soft, nontender. No guarding, no rebound. EXTREMITIES: No cyanosis, clubbing or edema. NEUROLOGIC: Grossly intact. No focal deficits. LABORATORY: White count 11.6, hemoglobin 12.2, platelets 297. IMPRESSION AND PLAN: 1. Status post hypoxemic and hypercapnic respiratory failure, with underlying chronic obstructive p ulmonary disease. 2. Aspiration pneumonia. 3. Resolved encephalopathy, which was toxic metabolic. 4. Status post septic shock. The patient will need: 1. Continued supplemental O2. 2. Encourage out of bed. 3. Discontinue Clarke catheter and rectal tube. 4. Encourage ambulation. 5. Discharge planning, if patient ambulating safely. Dictated By: OSMANI MARX/KIKE Conf#: [id number] DID#: [id number]
[2016-03-19] MEDS: DIGOXIN 0.25 MG TAB PO SCH (13:23)
--- NOTE | 2016-03-19 14:07 | PN ---
Date/Time of Note Date/Time of Note DATE: 03/19/16 TIME: 14:05 Assessment/Plan VTE Prophylaxis VTE Prophylaxis Intervention: other (eliquis) Lines/Catheters IV Catheter Type (from Nrs): PICC Line Urinary Cath still in place: Yes Assessment/Plan Chief Complaint/Hosp Course A/P 1) Ac Hypoxic Resp Failure; stable/ extubated; risk of re-intubation, but appears to want full care. insight is questionable. cont chf/ a fib care. 2) CHF- ac/decompensated/diastolic; mod stable; cont diuretics/ rt control 3) Htn 4) OHS/MICHAEL? 5) M Obesity 6) A Fib rvr; cont eliquis; rt more stable 7) COPD 8) Chr Resp failure; home o2 4l 9) Ftt; PT /ot? snf? 10) Anemia 11) Abn Ca 125 12) Thyroid nodule - ultrasound 13) Adrenal nodule? - mri 14) Fever- improved; c diff apparently -ve. 15) Diarrhea; finish flagyl Problems: Subjective 24 Hr Interval Summary Free Text/Dictation S- somewhat improved/ stable. no distress. Exam/Review of Systems Vital Signs Vitals Vital Signs Date Time Temp Pulse Resp B/P Pulse Ox O2 Delivery O2 Flow Rate FiO2 03/19/16 12:06 125 03/19/16 09:10 93 4.0 03/19/16 09:10 20 Nasal Cannula 03/19/16 06:55 97.9 106/65 03/16/16 08:39 50 Intake and Output 03/18/16 03/18/16 03/19/16 15:00 23:00 07:00 Intake Total 1500 ml 450 ml 400 ml Output Total 1035 ml 475 ml 2000 ml Balance 465 ml -25 ml -1600 ml Exam Constitutional: alert, oriented Respiratory: diminished breath sounds Cardiovascular: irregular rhythm (no m r g), regular rate and rhythm Gastrointestinal: non-tender (nd; no r r g), soft Extremities: other (no edema) Results Result Diagram: 03/18/165 03/18/16 0435 Results 24 hrs Laboratory Tests Test 03/18/16 14:17 03/18/16 18:40 03/18/16 20:46 03/19/16 02:59 Vancomycin Level Trough 11.5 Bedside Glucose 111 213 159 Test 03/19/16 08:03/19/16 11:42 Bedside Glucose 193 223 H Medications Medications Current Medications Salmeterol Xinafoate/ Fluticasone (Advair 250/50 Diskus) 1 inh BID INH Last administered on 03/19/16at 09:00; Admin Dose 1 INH; Start 03/06/16 at 21:00 Apixaban (Eliquis) 5 mg BID NGT Last administered on 03/19/16at 09:00; Admin Dose 5 MG; Start 03/08/16 at 10:50 Atorvastatin Calcium (Lipitor) 40 mg HS NGT Last administered on 03/18/16at 21: 16; Admin Dose 40 MG; Start 03/08/16 at 10:50 Spironolactone (Aldactone) 12.5 mg DAILY NGT Last administered on 03/19/16at 09 :00; Admin Dose 12.5 MG; Start 03/08/16 at 10:51 Insulin Glargine (Lantus) 22 unit HS SC Last administered on 03/18/16at 21:19; Admin Dose 22 UNIT; Start 03/08/16 at 21:00 Miscellaneous Information 1 ea NOTE XX ; Start 03/10/16 at 14:30 Glucose (Glutose) 15 gm Q15M PRN PO DECREASED GLUCOSE; Start 03/10/16 at 14:30 Glucose (Glutose) 22.5 gm Q15M PRN PO DECREASED GLUCOSE; Start 03/10/16 at 14: 30 Dextrose (D50w Syringe) 25 ml Q15M PRN IV DECREASED GLUCOSE; Start 03/10/16 at 14:30 Dextrose (D50w Syringe) 50 ml Q15M PRN IV DECREASED GLUCOSE; Start 03/10/16 at 14:30 Glucagon (Glucagen) 1 mg Q15M PRN IM DECREASED GLUCOSE; Start 03/10/16 at 14: 30 Glucose (Glutose) 15 gm Q15M PRN BUCCAL DECREASED GLUCOSE; Start 03/10/16 at 14:30 Acetaminophen (Tylenol Liquid) 650 mg Q4H PRN GTB PAIN AND OR ELEVATED TEMP Last administered on 03/13/16at 00:36; Admin Dose 650 MG; Start 03/11/16 at 12: 30 Labetalol HCl (Labetalol) 20 mg Q2H PRN IV SBP>160 Last administered on at 13:17; Admin Dose 20 MG; Start 03/12/16 at 13:30 Ondansetron HCl (Zofran Inj) 4 mg Q6H PRN IV NAUSEA AND/OR VOMITING Last administered on 03/13/16 14:00; Admin Dose 4 MG; Start 03/13/16 at 14:00 Insulin Aspart (Novolog Insulin Pen) NOVOLOG *MODERATE* ALGORI... Q6 SC Last administered on 03/19/16 11:49; Admin Dose 6 UNIT; Start 03/14/16 at 00:00 Lactobacillus Acidophilus/ Rhamnosus (Culturelle) 1 cap BID NGT Last administered on 03/19/16 09:00; Admin Dose 1 CAP; Start 03/14/16 at 21:00 Metronidazole (Flagyl) 500 mg Q8 NGT Last administered on 03/19/16 13:23; Admin Dose 500 MG; Start 03/14/16 at 22:00; Stop 03/22/16 at 23:00 Famotidine (Pepcid Iv) 20 mg DAILY IV Last administered on 03/19/16at 10:08; Admin Dose 20 MG; Start 03/16/16 at 09:00 Labetalol HCl (Labetalol) 10 mg Q6 PRN IV ELEVATED BLOOD PRESSURE; Start 03/15 at 18:00 Digoxin (Digoxin) 0.25 mg DAILY@13 PO Last administered on 03/19/16at 13:23; Admin Dose 0.25 MG; Start 03/17/16 at 13:00 Diltiazem HCl (Cardizem Cd) 360 mg DAILY PO Last administered on 03/19/16at 10: 12; Admin Dose 360 MG; Start 03/17/16 at 11:30 Thiamine HCl (Vitamin B1) 100 mg DAILY PO Last administered on 03/19/16 10:08 ; Admin Dose 100 MG; Start 03/18/16 at 09:00 Metoprolol Tartrate (Lopressor) 12.5 mg Q8 PO Last administered on 03/19/16 13:23; Admin Dose 12.5 MG; Start 03/18/16 at 09:00 ROMI RILEY MD Mar 19, 2016 14:07
--- NOTE | 2016-03-19 19:02 | CONS ---
Date/Time of Note Date/Time of Note DATE: 03/19/16 TIME: 19:01 Assessment/Plan Assessment/Plan Chief Complaint/Hosp Course Acute on chronic diastolic heart failure - echocardiogram 11/14/2015 showed LVEF 55%, mild diastolic dysfunction. Much improved Paroxysmal atrial fibrillation - rates better after addition of digoxin and metoprolol Acute on chronic hypoxic respiratory failure - intubated, now extubated 03/16 Pneumonia - left pleural effusion also noted Chronic obstructive pulmonary disease exacerbation - on 4 liters home oxygen at baseline Hypertension Dyslipidemia Diabetes mellitus -uptitrate metoprolol to 25mg q8h as no adverse reactions seen -continue digoxin 250mcg -diltiazem 360mg daily -bumex 1mg PO BID -continue spironolactone 12.5mg daily -continue Eliquis 5mg BID -continue atorvastatin 40mg daily -check daily labs with diuresis Problems: Consultation Date/Type/Reason Admit Date/Time Mar 06, 2016 at 15:11 Type of Consultation: Cardiology 24 HR Interval Summary Free Text/Dictation Doing well. HR better. Exam/Review of Systems Vital Signs Vitals Vital Signs Date Time Temp Pulse Resp B/P Pulse Ox O2 Delivery O2 Flow Rate FiO2 03/19/16 16:17 96 18 94 Nasal Cannula 4.0 03/19/16 16:08 97.2 129/59 03/16/16 08:39 50 Intake and Output 03/18/16 03/18/16 03/19/16 15:00 23:00 07:00 Intake Total 1500 ml 450 ml 400 ml Output Total 1035 ml 475 ml 2000 ml Balance 465 ml -25 ml -1600 ml Exam Constitutional: alert, oriented Psych: no complaints Neck: No jvd (unable to assess ) Respiratory: diminished breath sounds, No clear to auscultation, No wheezing Cardiovascular: No regular rate and rhythm, No systolic murmur Gastrointestinal: non-tender, soft 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: nl mental status, nl speech Results Result Diagram: 03/18/16 0435 03/18/16 0435 Results 24 hrs Laboratory Tests Test 03/18/16 20:46 03/19/16 02:59 03/19/16 08:16 03/19/16 11:42 Bedside Glucose 213 159 193 223 H Test 03/19/16 17:50 Bedside Glucose 166 Medications Medications Current Medications Salmeterol Xinafoate/ Fluticasone (Advair 250/50 Diskus) 1 inh BID INH Last administered on 03/19/16at 09:00; Admin Dose 1 INH; Start 03/06/16 at 21:00 Apixaban (Eliquis) 5 mg BID NGT Last administered on 03/19/16at 09:00; Admin Dose 5 MG; Start 03/08/16 at 10:50 Atorvastatin Calcium (Lipitor) 40 mg HS NGT Last administered on 03/18/16at 21: 16; Admin Dose 40 MG; Start 03/08/16 at 10:50 Spironolactone (Aldactone) 12.5 mg DAILY NGT Last administered on 03/19/16at 09 :00; Admin Dose 12.5 MG; Start 03/08/16 at 10:51 Insulin Glargine (Lantus) 22 unit HS SC Last administered on 03/18/16at 21:19; Admin Dose 22 UNIT; Start 03/08/16 at 21:00 Miscellaneous Information 1 ea NOTE XX ; Start 03/10/16 at 14:30 Glucose (Glutose) 15 gm Q15M PRN PO DECREASED GLUCOSE; Start 03/10/16 at 14:30 Glucose (Glutose) 22.5 gm Q15M PRN PO DECREASED GLUCOSE; Start 03/10/16 at 14: 30 Dextrose (D50w Syringe) 25 ml Q15M PRN IV DECREASED GLUCOSE; Start 03/10/16 at 14:30 Dextrose (D50w Syringe) 50 ml Q15M PRN IV DECREASED GLUCOSE; Start 03/10/16 at 14:30 Glucagon (Glucagen) 1 mg Q15M PRN IM DECREASED GLUCOSE; Start 03/10/16 at 14: 30 Glucose (Glutose) 15 gm Q15M PRN BUCCAL DECREASED GLUCOSE; Start 03/10/16 at 14:30 Acetaminophen (Tylenol Liquid) 650 mg Q4H PRN GTB PAIN AND OR ELEVATED TEMP Last administered on 03/13/16at 00:36; Admin Dose 650 MG; Start 03/11/16 at 12: 30 Labetalol HCl (Labetalol) 20 mg Q2H PRN IV SBP>160 Last administered on at 13:17; Admin Dose 20 MG; Start 03/12/16 at 13:30 Ondansetron HCl (Zofran Inj) 4 mg Q6H PRN IV NAUSEA AND/OR VOMITING Last administered on 03/13/16 14:00; Admin Dose 4 MG; Start 03/13/16 at 14:00 Insulin Aspart (Novolog Insulin Pen) NOVOLOG *MODERATE* ALGORI... Q6 SC Last administered on 03/19/16 17:55; Admin Dose 2 UNIT; Start 03/14/16 at 00:00 Lactobacillus Acidophilus/ Rhamnosus (Culturelle) 1 cap BID NGT Last administered on 03/19/16 09:00; Admin Dose 1 CAP; Start 03/14/16 at 21:00 Metronidazole (Flagyl) 500 mg Q8 NGT Last administered on 03/19/16 13:23; Admin Dose 500 MG; Start 03/14/16 at 22:00; Stop 03/22/16 at 23:00 Famotidine (Pepcid Iv) 20 mg DAILY IV Last administered on 03/19/16 10:08; Admin Dose 20 MG; Start 03/16/16 at 09:00 Labetalol HCl (Labetalol) 10 mg Q6 PRN IV ELEVATED BLOOD PRESSURE; Start 03/15 at 18:00 Digoxin (Digoxin) 0.25 mg DAILY@13 PO Last administered on 03/19/16 13:23; Admin Dose 0.25 MG; Start 03/17/16 at 13:00 Diltiazem HCl (Cardizem Cd) 360 mg DAILY PO Last administered on 03/19/16 10: 12; Admin Dose 360 MG; Start 03/17/16 at 11:30 Thiamine HCl (Vitamin B1) 100 mg DAILY PO Last administered on 03/19/16 10:08 ; Admin Dose 100 MG; Start 03/18/16 at 09:00 Metoprolol Tartrate (Lopressor) 12.5 mg Q8 PO Last administered on 03/19/16 13:23; Admin Dose 12.5 MG; Start 03/18/16 at 09:00 AMY SLOAN Mar 19, 2016 19:02
[2016-03-19] MEDS: ATORVASTATIN 40 MG TAB NGT SCH (20:38)
[2016-03-19] MEDS: INSULIN GLARGINE [LANtus] 3 ML PEN SC SCH (20:43)
[2016-03-20] VITALS (13 sets, daily range): BP systolic 97–136; BP diastolic 55–94; PULSE 66–100; RESP 18–20
[2016-03-20] MEDS: IPRATROPIUM (NEB) 0.5 MG/2.5 ML AMP HHN SCH ×2 (00:15→09:40)
[2016-03-20] MEDS: LEVALBUTEROL (NEB) 1.25 MG/0.5 ML AMP HHN SCH ×2 (00:15→09:40)
[2016-03-20] MEDS: metroNIDAZOLE 500 MG TAB NGT SCH ×3 (05:21→20:51)
[2016-03-20] MEDS: BUMETANIDE 1 MG TAB PO SCH ×2 (05:21→17:08)
[2016-03-20] MEDS: METOPROLOL 25 MG TAB PO SCH ×3 (06:00→22:19)
[2016-03-20] MEDS: INSULIN ASPART [NOVOLOG] 3 ML PEN SC SCH ×4 (06:24→20:55)
[2016-03-20 07:13] LABS: BASOPHIL # 0.1 10^3/ul (0.0-0.1); BASOPHILS % 0.6 % (0.0-2.0); EOSINOPHILS # 0.2 10^3/ul (0.0-0.5); EOSINOPHILS % 2.4 % (0.0-7.0); HEMATOCRIT 38.6 % (37.0-47.0); HEMOGLOBIN 12.4 g/dl (12.0-16.0); LYMPHOCYTES # 1.6 10^3/ul (0.8-2.9); LYMPHOCYTES % 18.6 % (15.0-51.0); MEAN CORPUSCULAR HEMOGLOBIN 28.3 pg (29.0-33.0); MEAN CORPUSCULAR HGB CONC 31.9 g/dl (32.0-37.0); MEAN CORPUSCULAR VOLUME 88.7 fl (82.0-101.0); MEAN PLATELET VOLUME 8.9 fl (7.4-10.4); MONOCYTE # 0.7 10^3/ul (0.3-0.9); MONOCYTES % 8.1 % (0.0-11.0); NEUTROPHIL # 5.9 10^3/ul (1.6-7.5); NEUTROPHILS % 70.3 % (39.0-77.0); PLATELET COUNT 257 10^3/UL (140-440); RED BLOOD COUNT 4.36 10^6/ul (4.20-5.40); RED CELL DISTRIBUTION WIDTH 19.4 % (11.5-14.5); UNCORRECTED WBC 8.4 10^3/ul (4.8-10.8); WHITE BLOOD COUNT 8.4 10^3/ul (4.8-10.8)
[2016-03-20 07:28] LABS: POTASSIUM 3.4 mmol/L (3.5-5.1)
[2016-03-20 07:30] LABS: CONDITION 1; LH ANALYZER COMMENTS 1
[2016-03-20 07:31] LABS: CREATININE 0.83 mg/dl (0.44-1.00)
[2016-03-20 07:32] LABS: CALCIUM 8.8 mg/dl (8.4-10.2); MAGNESIUM 1.8 mg/dl (1.7-2.5); PHOSPHORUS 4.2 mg/dl (2.5-4.9)
[2016-03-20] MEDS: SALMETEROL/FLUTICASONE 250/50 INHA INH SCH ×2 (08:52→20:49)
[2016-03-20] MEDS: FAMOTIDINE 20 MG INJ IV SCH (09:06)
[2016-03-20] MEDS: THIAMINE 100 MG TAB PO SCH (09:07)
[2016-03-20] MEDS: APIXABAN 5 MG TABLET NGT SCH ×2 (09:07→20:49)
[2016-03-20] MEDS: SPIRONOLACTONE 25 MG TAB NGT SCH (09:07)
[2016-03-20] MEDS: DILTIAZEM (CD) 180 MG CAP PO SCH (09:08)
[2016-03-20] MEDS: LACTOBACILLUS RHAMNOSUS CAP NGT SCH ×2 (09:14→20:50)
--- NOTE | 2016-03-20 11:00 | CONS ---
Date/Time of Note Date/Time of Note DATE: 03/20/16 TIME: 10:58 Consult Date/Type/Reason Admit Date/Time Mar 06, 2016 at 15:11 Type of Consultation: pulmonary Subjective Comfortable is morning no new events Objective Vital Signs Date Time Temp Pulse Resp B/P Pulse Ox O2 Delivery O2 Flow Rate FiO2 03/20/16 09:41 55 22 94 Nasal Cannula 4.0 03/20/16 06:52 97.4 136/94 03/16/16 08:39 50 Intake and Output 03/19/16 03/19/16 03/20/16 15:00 23:00 07:00 Intake Total 720 ml 200 ml Output Total 1750 ml 600 ml Balance -1030 ml -400 ml Results/Medications Result Diagram: 03/20/1618 03/20/1618 Results 24 hrs Laboratory Tests Test 03/19/16 11:42 03/19/16 17:50 03/19/16 20:35 03/19/16 23:21 Bedside Glucose 223 H 166 249 H 200 Test 03/20/16 05:19 03/20/16 06:18 03/20/16 08:08 Bedside Glucose 145 194 Anion Gap 12 Basophils # 0.1 Basophils % 0.6 Blood Morphology Comment Blood Urea Nitrogen 16 Calcium Level 8.8 Carbon Dioxide Level 35 H Chloride Level 98 Creatinine 0.83 Digoxin Level 0.9 L Eosinophils # 0.2 Eosinophils % 2.4 Glucose Level 144 Hematocrit 38.6 Hemoglobin 12.4 Lymphocytes # 1.6 Lymphocytes % 18.6 Magnesium Level 1.8 Mean Corpuscular Hemoglobin 28.3 L Mean Corpuscular Hemoglobin Concent 31.9 L Mean Corpuscular Volume 88.7 Mean Platelet Volume 8.9 Monocytes # 0.7 Monocytes % 8.1 Neutrophils # 5.9 Neutrophils % 70.3 Nucleated Red Blood Cells # 0.0 Nucleated Red Blood Cells % 0.0 Phosphorus Level 4.2 Platelet Count 257 Potassium Level 3.4 L Red Blood Count 4.36 Red Cell Distribution Width 19.4 H Sodium Level 142 White Blood Count 8.4 # Medications Current Medications Salmeterol Xinafoate/ Fluticasone (Advair 250/50 Diskus) 1 inh BID INH Last administered on 03/20/16t 08:52; Admin Dose 1 INH; Start 03/06/16 at 21:00 Apixaban (Eliquis) 5 mg BID NGT Last administered on 03/20/16 09:07; Admin Dose 5 MG; Start 03/08/16 at 10:50 Atorvastatin Calcium (Lipitor) 40 mg HS NGT Last administered on 03/19/16at 20: 38; Admin Dose 40 MG; Start 03/08/16 at 10:50 Spironolactone (Aldactone) 12.5 mg DAILY NGT Last administered on 03/20/16 09: 07; Admin Dose 12.5 MG; Start 03/08/16 at 10:51 Insulin Glargine (Lantus) 22 unit HS SC Last administered on 03/19/16at 20:43; Admin Dose 22 UNIT; Start 03/08/16 at 21:00 Miscellaneous Information 1 ea NOTE XX ; Start 03/10/16 at 14:30 Glucose (Glutose) 15 gm Q15M PRN PO DECREASED GLUCOSE; Start 03/10/16 at 14:30 Glucose (Glutose) 22.5 gm Q15M PRN PO DECREASED GLUCOSE; Start 03/10/16 at 14: 30 Dextrose (D50w Syringe) 25 ml Q15M PRN IV DECREASED GLUCOSE; Start 03/10/16 at 14:30 Dextrose (D50w Syringe) 50 ml Q15M PRN IV DECREASED GLUCOSE; Start 03/10/16 at 14:30 Glucagon (Glucagen) 1 mg Q15M PRN IM DECREASED GLUCOSE; Start 03/10/16 at 14: 30 Glucose (Glutose) 15 gm Q15M PRN BUCCAL DECREASED GLUCOSE; Start 03/10/16 at 14:30 Acetaminophen (Tylenol Liquid) 650 mg Q4H PRN GTB PAIN AND OR ELEVATED TEMP Last administered on 03/13/16at 00:36; Admin Dose 650 MG; Start 03/11/16 at 12: 30 Labetalol HCl (Labetalol) 20 mg Q2H PRN IV SBP>160 Last administered on at 13:17; Admin Dose 20 MG; Start 03/12/16 at 13:30 Ondansetron HCl (Zofran Inj) 4 mg Q6H PRN IV NAUSEA AND/OR VOMITING Last administered on 03/13/16at 14:00; Admin Dose 4 MG; Start 03/13/16 at 14:00 Insulin Aspart (Novolog Insulin Pen) NOVOLOG *MODERATE* ALGORI... Q6 SC Last administered on 03/20/16 06:24; Admin Dose 2 UNIT; Start 03/14/16 at 00:00 Lactobacillus Acidophilus/ Rhamnosus (Culturelle) 1 cap BID NGT Last administered on 03/20/16 09:14; Admin Dose 1 CAP; Start 03/14/16 at 21:00 Metronidazole (Flagyl) 500 mg Q8 NGT Last administered on 03/20/16 05:21; Admin Dose 500 MG; Start 03/14/16 at 22:00; Stop 03/22/16 at 23:00 Famotidine (Pepcid Iv) 20 mg DAILY IV Last administered on 03/20/16 09:06; Admin Dose 20 MG; Start 03/16/16 at 09:00 Labetalol HCl (Labetalol) 10 mg Q6 PRN IV ELEVATED BLOOD PRESSURE; Start 03/15 at 18:00 Digoxin (Digoxin) 0.25 mg DAILY@13 PO Last administered on 03/19/16at 13:23; Admin Dose 0.25 MG; Start 03/17/16 at 13:00 Diltiazem HCl (Cardizem Cd) 360 mg DAILY PO Last administered on 03/20/16 09:08 ; Admin Dose 360 MG; Start 03/17/16 at 11:30 Thiamine HCl (Vitamin B1) 100 mg DAILY PO Last administered on 03/20/16 09:07; Admin Dose 100 MG; Start 03/18/16 at 09:00 Metoprolol Tartrate (Lopressor) 25 mg Q8 PO Last administered on 03/19/16at 23: 25; Admin Dose 25 MG; Start 03/19/16 at 22:00 Assessment/Plan Chief Complaint/Hosp Course IMPRESSION AND PLAN: 1. Status post Hypoxemic hypercap resp failure now stable on nasal cannula 2. Encephalopathy resolved 3. MICHAEL 4. Sepsis. 5. Electrolyte Imbalance The patient will require: 1. Aspiration precautions 2. Bronchodilators 3. Correction of hyponatremia 4. Deep vein thrombosis and gastrointestinal prophylaxis. Discharge planning okay from pulmonary standpoint Problems: OSMANI LUIS MD, [facility] Mar 20, 2016 10:59
--- NOTE | 2016-03-20 13:07 | PN ---
Date/Time of Note Date/Time of Note DATE: 03/20/16 TIME: 13:04 Assessment/Plan VTE Prophylaxis VTE Prophylaxis Intervention: other (eliquis) Lines/Catheters IV Catheter Type (from Nrs): PICC Line Urinary Cath still in place: Yes Assessment/Plan Chief Complaint/Hosp Course A/P 1) Ac Hypoxic Resp Failure; stable/ extubated; risk of re-intubation; appears to want full care. insight is questionable. cont chf/ a fib care. 2) CHF- ac/decompensated/diastolic; stable; cont diuretics/ rt control 3) Htn 4) OHS/MICHAEL? sleep study outpt? 5) M Obesity 6) A Fib rvr; cont eliquis; dc home if Rt stable w ambulation 7) COPD 8) Chr Resp failure; home o2 4l 9) Ftt; PT; DC home w home health/pt/safety eval 10) Anemia 11) Abn Ca 125 12) Thyroid nodule - ultrasound 13) Adrenal nodule? - mri 14) Fever- improved; c diff apparently -ve. 15) Diarrhea; finish flagyl Problems: Subjective 24 Hr Interval Summary Free Text/Dictation S- no distress/ dyspnea/ palpitations. HR ~ 90-110. legs are wobby w pt; has caregiver at home? Exam/Review of Systems Vital Signs Vitals Vital Signs Date Time Temp Pulse Resp B/P Pulse Ox O2 Delivery O2 Flow Rate FiO2 03/20/16 12:45 66 03/20/16 11:45 97.4 20 97/59 95 03/20/16 09:41 Nasal Cannula 4.0 03/16/16 08:39 50 Intake and Output 03/19/16 03/19/16 03/20/16 15:00 23:00 07:00 Intake Total 720 ml 200 ml Output Total 1750 ml 600 ml Balance -1030 ml -400 ml Exam Constitutional: alert Respiratory: clear to auscultation Cardiovascular: irregular rhythm Gastrointestinal: non-tender (nd; no r r g; obese), soft Musculoskeletal: other Extremities: other (mild edema) Results Result Diagram: 03/20/16 0618 03/20/16 0618 Results 24 hrs Laboratory Tests Test 03/19/16 17:50 03/19/16 20:35 03/19/16 23:21 03/20/16 05:19 Bedside Glucose 166 249 H 200 145 Test 03/20/16 06:18 03/20/16 08:08 03/20/16 12:11 Anion Gap 12 Basophils # 0.1 Basophils % 0.6 Blood Morphology Comment Blood Urea Nitrogen 16 Calcium Level 8.8 Carbon Dioxide Level 35 H Chloride Level 98 Creatinine 0.83 Digoxin Level 0.9 L Eosinophils # 0.2 Eosinophils % 2.4 Glucose Level 144 Hematocrit 38.6 Hemoglobin 12.4 Lymphocytes # 1.6 Lymphocytes % 18.6 Magnesium Level 1.8 Mean Corpuscular Hemoglobin 28.3 L Mean Corpuscular Hemoglobin Concent 31.9 L Mean Corpuscular Volume 88.7 Mean Platelet Volume 8.9 Monocytes # 0.7 Monocytes % 8.1 Neutrophils # 5.9 Neutrophils % 70.3 Nucleated Red Blood Cells # 0.0 Nucleated Red Blood Cells % 0.0 Phosphorus Level 4.2 Platelet Count 257 Potassium Level 3.4 L Red Blood Count 4.36 Red Cell Distribution Width 19.4 H Sodium Level 142 White Blood Count 8.4 # Bedside Glucose 194 192 Medications Medications Current Medications Salmeterol Xinafoate/ Fluticasone (Advair 250/50 Diskus) 1 inh BID INH Last administered on 03/20/16 08:52; Admin Dose 1 INH; Start 03/06/16 at 21:00 Apixaban (Eliquis) 5 mg BID NGT Last administered on 03/20/16 09:07; Admin Dose 5 MG; Start 03/08/16 at 10:50 Atorvastatin Calcium (Lipitor) 40 mg HS NGT Last administered on 03/19/16at 20: 38; Admin Dose 40 MG; Start 03/08/16 at 10:50 Spironolactone (Aldactone) 12.5 mg DAILY NGT Last administered on 03/20/16 09: 07; Admin Dose 12.5 MG; Start 03/08/16 at 10:51 Insulin Glargine (Lantus) 22 unit HS SC Last administered on 03/19/16at 20:43; Admin Dose 22 UNIT; Start 03/08/16 at 21:00 Miscellaneous Information 1 ea NOTE XX ; Start 03/10/16 at 14:30 Glucose (Glutose) 15 gm Q15M PRN PO DECREASED GLUCOSE; Start 03/10/16 at 14:30 Glucose (Glutose) 22.5 gm Q15M PRN PO DECREASED GLUCOSE; Start 03/10/16 at 14: 30 Dextrose (D50w Syringe) 25 ml Q15M PRN IV DECREASED GLUCOSE; Start 03/10/16 at 14:30 Dextrose (D50w Syringe) 50 ml Q15M PRN IV DECREASED GLUCOSE; Start 03/10/16 at 14:30 Glucagon (Glucagen) 1 mg Q15M PRN IM DECREASED GLUCOSE; Start 03/10/16 at 14: 30 Glucose (Glutose) 15 gm Q15M PRN BUCCAL DECREASED GLUCOSE; Start 03/10/16 at 14:30 Acetaminophen (Tylenol Liquid) 650 mg Q4H PRN GTB PAIN AND OR ELEVATED TEMP Last administered on 03/13/16at 00:36; Admin Dose 650 MG; Start 03/11/16 at 12: 30 Labetalol HCl (Labetalol) 20 mg Q2H PRN IV SBP>160 Last administered on at 13:17; Admin Dose 20 MG; Start 03/12/16 at 13:30 Ondansetron HCl (Zofran Inj) 4 mg Q6H PRN IV NAUSEA AND/OR VOMITING Last administered on 03/13/16at 14:00; Admin Dose 4 MG; Start 03/13/16 at 14:00 Insulin Aspart (Novolog Insulin Pen) NOVOLOG *MODERATE* ALGORI... Q6 SC Last administered on 03/20/16 12:17; Admin Dose 4 UNIT; Start 03/14/16 at 00:00 Lactobacillus Acidophilus/ Rhamnosus (Culturelle) 1 cap BID NGT Last administered on 03/20/16 09:14; Admin Dose 1 CAP; Start 03/14/16 at 21:00 Metronidazole (Flagyl) 500 mg Q8 NGT Last administered on 03/20/16 05:21; Admin Dose 500 MG; Start 03/14/16 at 22:00; Stop 03/22/16 at 23:00 Famotidine (Pepcid Iv) 20 mg DAILY IV Last administered on 03/20/16 09:06; Admin Dose 20 MG; Start 03/16/16 at 09:00 Labetalol HCl (Labetalol) 10 mg Q6 PRN IV ELEVATED BLOOD PRESSURE; Start 03/15 at 18:00 Digoxin (Digoxin) 0.25 mg DAILY@13 PO Last administered on 03/19/16at 13:23; Admin Dose 0.25 MG; Start 03/17/16 at 13:00 Diltiazem HCl (Cardizem Cd) 360 mg DAILY PO Last administered on 03/20/16 09:08 ; Admin Dose 360 MG; Start 03/17/16 at 11:30 Thiamine HCl (Vitamin B1) 100 mg DAILY PO Last administered on 03/20/16 09:07; Admin Dose 100 MG; Start 03/18/16 at 09:00 Metoprolol Tartrate (Lopressor) 25 mg Q8 PO Last administered on 03/19/16at 23: 25; Admin Dose 25 MG; Start 03/19/16 at 22:00 ROMI RILEY MD Mar 20, 2016 13:07
[2016-03-20] MEDS: DIGOXIN 0.25 MG TAB PO SCH (16:01)
[2016-03-20] MEDS: LEVALBUTEROL (NEB) 1.25 MG/0.5 ML AMP HHN PRN (16:10)
[2016-03-20] MEDS: IPRATROPIUM (NEB) 0.5 MG/2.5 ML AMP HHN PRN (16:10)
[2016-03-20] MEDS: POTASSIUM CHLORIDE 20 MEQ POWDER FOR ORAL SOLN PO SCH (17:07)
[2016-03-20] MEDS: MAGNESIUM OXIDE 400 MG TAB PO SCH ×2 (17:08→20:50)
[2016-03-20] MEDS: ATORVASTATIN 40 MG TAB NGT SCH (20:49)
[2016-03-20] MEDS: INSULIN GLARGINE [LANtus] 3 ML PEN SC SCH (20:55)
--- NOTE | 2016-03-20 21:46 | CONS ---
Date/Time of Note Date/Time of Note DATE: 03/20/16 TIME: 21:43 Assessment/Plan Assessment/Plan Chief Complaint/Hosp Course Acute on chronic diastolic heart failure - echocardiogram 11/14/2015 showed LVEF 55%, mild diastolic dysfunction. Much improved but now with worse edema likely due to mobilization of fluids. Paroxysmal atrial fibrillation - rates better after addition of digoxin and metoprolol Acute on chronic hypoxic respiratory failure - intubated, now extubated 03/16 Pneumonia - left pleural effusion also noted Chronic obstructive pulmonary disease exacerbation - on 4 liters home oxygen at baseline Hypertension Dyslipidemia Diabetes mellitus -continue metoprolol to 25mg q8h -continue digoxin 250mcg -diltiazem 360mg daily -increase to bumex 2mg PO BID. Likely will need to go home on this dose chronically to maintain volume status -increase to spironolactone 25mg daily to help with hypokalemia -continue Eliquis 5mg BID -continue atorvastatin 40mg daily Problems: Consultation Date/Type/Reason Admit Date/Time Mar 06, 2016 at 15:11 Type of Consultation: Cardiology 24 HR Interval Summary Free Text/Dictation No o/n events. HR better controlled. Feels legs are more swollen. Sitting up more. Exam/Review of Systems Vital Signs Vitals Vital Signs Date Time Temp Pulse Resp B/P Pulse Ox O2 Delivery O2 Flow Rate FiO2 03/20/16 20:50 3.0 03/20/16 19:57 97.5 84 18 114/77 92 03/20/16 16:10 Nasal Cannula 03/16/16 08:39 50 Intake and Output 03/19/16 03/19/16 03/20/16 14:59 22:59 06:59 Intake Total 720 ml 200 ml Output Total 1750 ml 600 ml Balance -1030 ml -400 ml Exam Constitutional: alert, oriented Head: atraumatic, normocephalic Neck: No jvd (unable to assess ) Respiratory: crackles/rales (mild), diminished breath sounds, No clear to auscultation Cardiovascular: edema (1-2+), No regular rate and rhythm Results Result Diagram: 03/20/1618 03/20/16 0618 Results 24 hrs Laboratory Tests Test 03/19/16 23:21 03/20/16 05:19 03/20/16 06:18 03/20/16 08:08 Bedside Glucose 200 145 194 Anion Gap 12 Basophils # 0.1 Basophils % 0.6 Blood Morphology Comment Blood Urea Nitrogen 16 Calcium Level 8.8 Carbon Dioxide Level 35 H Chloride Level 98 Creatinine 0.83 Digoxin Level 0.9 L Eosinophils # 0.2 Eosinophils % 2.4 Glucose Level 144 Hematocrit 38.6 Hemoglobin 12.4 Lymphocytes # 1.6 Lymphocytes % 18.6 Magnesium Level 1.8 Mean Corpuscular Hemoglobin 28.3 L Mean Corpuscular Hemoglobin Concent 31.9 L Mean Corpuscular Volume 88.7 Mean Platelet Volume 8.9 Monocytes # 0.7 Monocytes % 8.1 Neutrophils # 5.9 Neutrophils % 70.3 Nucleated Red Blood Cells # 0.0 Nucleated Red Blood Cells % 0.0 Phosphorus Level 4.2 Platelet Count 257 Potassium Level 3.4 L Red Blood Count 4.36 Red Cell Distribution Width 19.4 H Sodium Level 142 White Blood Count 8.4 # Test 03/20/16 12:11 03/20/16 17:01 03/20/16 20:47 Bedside Glucose 192 201 229 H Medications Medications Current Medications Salmeterol Xinafoate/ Fluticasone (Advair 250/50 Diskus) 1 inh BID INH Last administered on 03/20/16 20:49; Admin Dose 1 INH; Start 03/06/16 at 21:00 Apixaban (Eliquis) 5 mg BID NGT Last administered on 03/20/16 20:49; Admin Dose 5 MG; Start 03/08/16 at 10:50 Atorvastatin Calcium (Lipitor) 40 mg HS NGT Last administered on 03/20/16 20:49 ; Admin Dose 40 MG; Start 03/08/16 at 10:50 Spironolactone (Aldactone) 12.5 mg DAILY NGT Last administered on 03/20/16 09: 07; Admin Dose 12.5 MG; Start 03/08/16 at 10:51 Insulin Glargine (Lantus) 22 unit HS SC Last administered on 03/20/16 20:55; Admin Dose 22 UNIT; Start 03/08/16 at 21:00 Miscellaneous Information 1 ea NOTE XX ; Start 03/10/16 at 14:30 Glucose (Glutose) 15 gm Q15M PRN PO DECREASED GLUCOSE; Start 03/10/16 at 14:30 Glucose (Glutose) 22.5 gm Q15M PRN PO DECREASED GLUCOSE; Start 03/10/16 at 14: 30 Dextrose (D50w Syringe) 25 ml Q15M PRN IV DECREASED GLUCOSE; Start 03/10/16 at 14:30 Dextrose (D50w Syringe) 50 ml Q15M PRN IV DECREASED GLUCOSE; Start 03/10/16 at 14:30 Glucagon (Glucagen) 1 mg Q15M PRN IM DECREASED GLUCOSE; Start 03/10/16 at 14: 30 Glucose (Glutose) 15 gm Q15M PRN BUCCAL DECREASED GLUCOSE; Start 03/10/16 at 14:30 Acetaminophen (Tylenol Liquid) 650 mg Q4H PRN GTB PAIN AND OR ELEVATED TEMP Last administered on 03/13/16at 00:36; Admin Dose 650 MG; Start 03/11/16 at 12: 30 Labetalol HCl (Labetalol) 20 mg Q2H PRN IV SBP>160 Last administered on at 13:17; Admin Dose 20 MG; Start 03/12/16 at 13:30 Ondansetron HCl (Zofran Inj) 4 mg Q6H PRN IV NAUSEA AND/OR VOMITING Last administered on 03/13/16at 14:00; Admin Dose 4 MG; Start 03/13/16 at 14:00 Lactobacillus Acidophilus/ Rhamnosus (Culturelle) 1 cap BID NGT Last administered on 03/20/16 20:50; Admin Dose 1 CAP; Start 03/14/16 at 21:00 Metronidazole (Flagyl) 500 mg Q8 NGT Last administered on 03/20/16 20:51; Admin Dose 500 MG; Start 03/14/16 at 22:00; Stop 03/22/16 at 23:00 Labetalol HCl (Labetalol) 10 mg Q6 PRN IV ELEVATED BLOOD PRESSURE; Start 03/15 at 18:00 Digoxin (Digoxin) 0.25 mg DAILY@13 PO Last administered on 03/20/16 16:01; Admin Dose 0.25 MG; Start 03/17/16 at 13:00 Diltiazem HCl (Cardizem Cd) 360 mg DAILY PO Last administered on 03/20/16 09:08 ; Admin Dose 360 MG; Start 03/17/16 at 11:30 Thiamine HCl (Vitamin B1) 100 mg DAILY PO Last administered on 03/20/16 09:07; Admin Dose 100 MG; Start 03/18/16 at 09:00 Metoprolol Tartrate (Lopressor) 25 mg Q8 PO Last administered on 03/20/16 16:01 ; Admin Dose 25 MG; Start 03/19/16 at 22:00 Potassium Chloride (Potassium Chloride Pwd/Soln) 40 meq DAILY PO Last administered on 03/20/16 17:07; Admin Dose 40 MEQ; Start 03/20/16 at 13:30 Magnesium Oxide (Mag-Ox 400) 400 mg TID PO Last administered on 03/20/16 20:50 ; Admin Dose 400 MG; Start 03/20/16 at 13:30 Famotidine (Pepcid) 20 mg DAILY PO ; Start 03/21/16 at 09:00 Diagnostic Test (Pha) (Accucheck) 1 ea 02 XX ; Start 03/21/16 at 02:00 AMY SLOAN Mar 20, 2016 21:45
[2016-03-20] MEDS ORDERED: BUMETANIDE 1 MG INJ IV ONE (22:00)
[2016-03-21] VITALS (13 sets, daily range): BP systolic 101–185; BP diastolic 58–108; PULSE 30–151; RESP 15–20
[2016-03-21] MEDS: ACCUCHECK XX SCH (02:00)
[2016-03-21] MEDS: METOPROLOL 25 MG TAB PO SCH ×3 (06:00→22:02)
[2016-03-21] MEDS: BUMETANIDE 1 MG TAB PO SCH ×2 (06:10→17:49)
[2016-03-21] MEDS: metroNIDAZOLE 500 MG TAB NGT SCH ×3 (06:10→22:03)
--- NOTE | 2016-03-21 07:44 | CONS ---
Date/Time of Note Date/Time of Note DATE: 03/21/16 TIME: 07:41 Assessment/Plan Assessment/Plan Chief Complaint/Hosp Course Acute on chronic diastolic heart failure - echocardiogram 11/14/2015 showed LVEF 55%, mild diastolic dysfunction. Much improved but now with worse edema likely due to mobilization of fluids. Paroxysmal atrial fibrillation - rates better after addition of digoxin and metoprolol Acute on chronic hypoxic respiratory failure - intubated, now extubated 03/16 Pneumonia - left pleural effusion also noted Chronic obstructive pulmonary disease exacerbation - on 4 liters home oxygen at baseline Hypertension Dyslipidemia Diabetes mellitus -continue metoprolol to 25mg q8h -continue digoxin 250mcg -diltiazem 360mg daily -I have increased to bumex 2mg PO BID. If being discharged, should continue the higher dose but should have enough potassium supplementation and have labs within a week -spironolactone 25mg daily to help with hypokalemia -continue Eliquis 5mg BID -continue atorvastatin 40mg daily Problems: Consultation Date/Type/Reason Admit Date/Time Mar 06, 2016 at 15:11 Type of Consultation: Cardiology 24 HR Interval Summary Free Text/Dictation No o/n events. Has not been walking much due to fatigue. One episode of HR down to 30-40s but not sustained. Otherwise rates controlled Exam/Review of Systems Vital Signs Vitals Vital Signs Date Time Temp Pulse Resp B/P Pulse Ox O2 Delivery O2 Flow Rate FiO2 03/21/16 05:42 30 03/21/16 00:00 98.3 15 101/66 93 03/20/16 21:45 Nasal Cannula 4.0 Intake and Output 03/20/16 03/20/16 03/21/16 15:00 23:00 07:00 Intake Total 960 ml 500 ml Output Total 2200 ml Balance 960 ml -1700 ml Exam Constitutional: alert, oriented Neck: No jvd (unable to assess ) Respiratory: crackles/rales Cardiovascular: edema (2+), No regular rate and rhythm Results Result Diagram: 03/20/1618 03/20/16 0618 Results 24 hrs Laboratory Tests Test 03/20/16 08:08 03/20/16 12:11 03/20/16 17:01 03/20/16 20:47 Bedside Glucose 194 192 201 229 H Test 03/21/16 02:22 Bedside Glucose 128 Medications Medications Current Medications Salmeterol Xinafoate/ Fluticasone (Advair 250/50 Diskus) 1 inh BID INH Last administered on 03/20/16 20:49; Admin Dose 1 INH; Start 03/06/16 at 21:00 Apixaban (Eliquis) 5 mg BID NGT Last administered on 03/20/16 20:49; Admin Dose 5 MG; Start 03/08/16 at 10:50 Atorvastatin Calcium (Lipitor) 40 mg HS NGT Last administered on 03/20/16 20:49 ; Admin Dose 40 MG; Start 03/08/16 at 10:50 Insulin Glargine (Lantus) 22 unit HS SC Last administered on 03/20/16 20:55; Admin Dose 22 UNIT; Start 03/08/16 at 21:00 Miscellaneous Information 1 ea NOTE XX ; Start 03/10/16 at 14:30 Glucose (Glutose) 15 gm Q15M PRN PO DECREASED GLUCOSE; Start 03/10/16 at 14:30 Glucose (Glutose) 22.5 gm Q15M PRN PO DECREASED GLUCOSE; Start 03/10/16 at 14: 30 Dextrose (D50w Syringe) 25 ml Q15M PRN IV DECREASED GLUCOSE; Start 03/10/16 at 14:30 Dextrose (D50w Syringe) 50 ml Q15M PRN IV DECREASED GLUCOSE; Start 03/10/16 at 14:30 Glucagon (Glucagen) 1 mg Q15M PRN IM DECREASED GLUCOSE; Start 03/10/16 at 14: 30 Glucose (Glutose) 15 gm Q15M PRN BUCCAL DECREASED GLUCOSE; Start 03/10/16 at 14:30 Acetaminophen (Tylenol Liquid) 650 mg Q4H PRN GTB PAIN AND OR ELEVATED TEMP Last administered on 03/13/16at 00:36; Admin Dose 650 MG; Start 03/11/16 at 12: 30 Labetalol HCl (Labetalol) 20 mg Q2H PRN IV SBP>160 Last administered on at 13:17; Admin Dose 20 MG; Start 03/12/16 at 13:30 Ondansetron HCl (Zofran Inj) 4 mg Q6H PRN IV NAUSEA AND/OR VOMITING Last administered on 03/13/16at 14:00; Admin Dose 4 MG; Start 03/13/16 at 14:00 Lactobacillus Acidophilus/ Rhamnosus (Culturelle) 1 cap BID NGT Last administered on 03/20/16 20:50; Admin Dose 1 CAP; Start 03/14/16 at 21:00 Metronidazole (Flagyl) 500 mg Q8 NGT Last administered on 03/21/16 06:10; Admin Dose 500 MG; Start 03/14/16 at 22:00; Stop 03/22/16 at 23:00 Labetalol HCl (Labetalol) 10 mg Q6 PRN IV ELEVATED BLOOD PRESSURE; Start 03/15 at 18:00 Digoxin (Digoxin) 0.25 mg DAILY@13 PO Last administered on 03/20/16 16:01; Admin Dose 0.25 MG; Start 03/17/16 at 13:00 Diltiazem HCl (Cardizem Cd) 360 mg DAILY PO Last administered on 03/20/16 09:08 ; Admin Dose 360 MG; Start 03/17/16 at 11:30 Thiamine HCl (Vitamin B1) 100 mg DAILY PO Last administered on 03/20/16 09:07; Admin Dose 100 MG; Start 03/18/16 at 09:00 Metoprolol Tartrate (Lopressor) 25 mg Q8 PO Last administered on 03/20/16 22:19 ; Admin Dose 25 MG; Start 03/19/16 at 22:00 Potassium Chloride (Potassium Chloride Pwd/Soln) 40 meq DAILY PO Last administered on 03/20/16 17:07; Admin Dose 40 MEQ; Start 03/20/16 at 13:30 Magnesium Oxide (Mag-Ox 400) 400 mg TID PO Last administered on 03/20/16 20:50 ; Admin Dose 400 MG; Start 03/20/16 at 13:30 Famotidine (Pepcid) 20 mg DAILY PO ; Start 03/21/16 at 09:00 Diagnostic Test (Pha) (Accucheck) 1 ea 02 XX ; Start 03/21/16 at 02:00 Spironolactone (Aldactone) 25 mg DAILY PO ; Start 03/21/16 at 09:00 AMY SLOAN Mar 21, 2016 07:44
--- NOTE | 2016-03-21 08:06 | RADRPT ---
PROCEDURE: US Thyroid. CLINICAL INDICATION: Thyroid nodule. TECHNIQUE: High-resolution sonography of the thyroid was performed in the axial and sagittal plane s. COMPARISON: CT scan of the chest dated 03/06/2016 which demonstrated a 1.9 cm nodule in the right thyroid lobe. FINDINGS: The right lobe measures 5.3 x 2.3 x 2.4 cm. The left lobe measures 4.7 x 2.2 x 2.3 cm. The isthmus measures 0.4 cm. There are multiple bilateral thyroid nodules with the largest nodule on the right measuring 1.5 x 1. 0 x 1.6 cm and the largest nodule on the left measuring 0.8 x 1.0 x 0.9 cm. The thyroid is diffusely heterogeneous. The thyroid is normal in size. IMPRESSION: 1. Multiple probably benign bilateral thyroid nodules. Follow-up thyroid ultrasound in 12 months a dvised. 2. Otherwise unremarkable study. RPTAT: QQ .Raymond Palacios MD, MD Date Time Electronically viewed and signed by .Raymond Palacios MD, on 03/21/2016 08:06 .R/
[2016-03-21] MEDS: DILTIAZEM (CD) 180 MG CAP PO SCH (09:23)
[2016-03-21] MEDS: APIXABAN 5 MG TABLET NGT SCH ×2 (09:23→20:40)
[2016-03-21] MEDS: THIAMINE 100 MG TAB PO SCH (09:23)
[2016-03-21] MEDS: FAMOTIDINE 20 MG TAB PO SCH (09:23)
[2016-03-21] MEDS: SPIRONOLACTONE 25 MG TAB PO SCH (09:23)
[2016-03-21] MEDS: SALMETEROL/FLUTICASONE 250/50 INHA INH SCH ×2 (09:24→22:03)
[2016-03-21] MEDS: MAGNESIUM OXIDE 400 MG TAB PO SCH ×3 (09:24→20:40)
[2016-03-21] MEDS: LACTOBACILLUS RHAMNOSUS CAP NGT SCH ×2 (09:24→20:40)
[2016-03-21] MEDS: POTASSIUM CHLORIDE 20 MEQ POWDER FOR ORAL SOLN PO SCH (09:24)
[2016-03-21 09:25] LABS: BASOPHILS % 0.2 % (0.0-2.0); HEMATOCRIT 38.5 % (37.0-47.0); HEMOGLOBIN 12.2 g/dl (12.0-16.0); LYMPHOCYTES # 1.1 10^3/ul (0.8-2.9); MEAN CORPUSCULAR HEMOGLOBIN 28.1 pg (29.0-33.0); MEAN CORPUSCULAR HGB CONC 31.6 g/dl (32.0-37.0); MEAN PLATELET VOLUME 9.1 fl (7.4-10.4); MONOCYTE # 0.6 10^3/ul (0.3-0.9); MONOCYTES % 6.3 % (0.0-11.0); NEUTROPHIL # 7.6 10^3/ul (1.6-7.5); NEUTROPHILS % 81.5 % (39.0-77.0); PLATELET COUNT 298 10^3/UL (140-440); RED BLOOD COUNT 4.33 10^6/ul (4.20-5.40); RED CELL DISTRIBUTION WIDTH 19.1 % (11.5-14.5); UNCORRECTED WBC 9.3 10^3/ul (4.8-10.8); WHITE BLOOD COUNT 9.3 10^3/ul (4.8-10.8)
[2016-03-21] MEDS: INSULIN ASPART [NOVOLOG] 3 ML PEN SC SCH ×4 (09:28→21:00)
[2016-03-21 09:29] LABS: CONDITION 1; LH ANALYZER COMMENTS 1
[2016-03-21 09:38] LABS: POTASSIUM 3.6 mmol/L (3.5-5.1)
[2016-03-21 09:41] LABS: CREATININE 0.67 mg/dl (0.44-1.00); PHOSPHORUS 3.6 mg/dl (2.5-4.9)
[2016-03-21 09:42] LABS: CALCIUM 8.5 mg/dl (8.4-10.2); MAGNESIUM 1.6 mg/dl (1.7-2.5)
--- NOTE | 2016-03-21 12:50 | CONS ---
Date/Time of Note Date/Time of Note DATE: 03/21/16 TIME: 12:50 Consult Date/Type/Reason Admit Date/Time Mar 06, 2016 at 15:11 Type of Consultation: Pulm Subjective Comfortable. Objective Vital Signs Date Time Temp Pulse Resp B/P Pulse Ox O2 Delivery O2 Flow Rate FiO2 03/21/16 12:09 75 03/21/16 12:03 97.0 18 123/58 98 03/20/16 21:45 Nasal Cannula 4.0 Intake and Output 03/20/16 03/20/16 03/21/16 15:00 23:00 07:00 Intake Total 960 ml 500 ml Output Total 2200 ml Balance 960 ml -1700 ml PHYSICAL EXAMINATION: VITAL SIGNS: as above NECK: Supple. No JVD or lymphadenopathy. CARDIAC EXAM: S1, S2. No added sounds or murmurs. CHEST: Diminished air entry, both lung bases. ABDOMEN: Obese, soft, nontender. No guarding, no rebound. EXTREMITIES: No cyanosis, clubbing or edema. NEUROLOGIC: Grossly intact. No focal deficits. Results/Medications Result Diagram: 03/21/16 0830 03/21/16 0830 Results 24 hrs Laboratory Tests Test 03/20/16 17:01 03/20/16 20:47 03/21/16 02:22 03/21/16 08:21 Bedside Glucose 201 229 H 128 163 Test 03/21/16 08:30 03/21/16 12:03 Anion Gap 13 Basophils # 0.0 Basophils % 0.2 Blood Morphology Comment Blood Urea Nitrogen 14 Calcium Level 8.5 Carbon Dioxide Level 37 H Chloride Level 94 L Creatinine 0.67 Eosinophils # 0.0 Eosinophils % 0.0 Glucose Level 160 Hematocrit 38.5 Hemoglobin 12.2 Lymphocytes # 1.1 Lymphocytes % 12.0 L Magnesium Level 1.6 L Mean Corpuscular Hemoglobin 28.1 L Mean Corpuscular Hemoglobin Concent 31.6 L Mean Corpuscular Volume 89.0 Mean Platelet Volume 9.1 Monocytes # 0.6 Monocytes % 6.3 Neutrophils # 7.6 H Neutrophils % 81.5 H Nucleated Red Blood Cells # 0.0 Nucleated Red Blood Cells % 0.0 Phosphorus Level 3.6 Platelet Count 298 Potassium Level 3.6 Red Blood Count 4.33 Red Cell Distribution Width 19.1 H Sodium Level 140 White Blood Count 9.3 Bedside Glucose 216 Medications Current Medications Salmeterol Xinafoate/ Fluticasone (Advair 250/50 Diskus) 1 inh BID INH Last administered on 03/21/16 09:24; Admin Dose 1 INH; Start 03/06/16 at 21:00 Apixaban (Eliquis) 5 mg BID NGT Last administered on 03/21/16 09:23; Admin Dose 5 MG; Start 03/08/16 at 10:50 Atorvastatin Calcium (Lipitor) 40 mg HS NGT Last administered on 03/20/16 20:49 ; Admin Dose 40 MG; Start 03/08/16 at 10:50 Insulin Glargine (Lantus) 22 unit HS SC Last administered on 03/20/16 20:55; Admin Dose 22 UNIT; Start 03/08/16 at 21:00 Miscellaneous Information 1 ea NOTE XX ; Start 03/10/16 at 14:30 Glucose (Glutose) 15 gm Q15M PRN PO DECREASED GLUCOSE; Start 03/10/16 at 14:30 Glucose (Glutose) 22.5 gm Q15M PRN PO DECREASED GLUCOSE; Start 03/10/16 at 14: 30 Dextrose (D50w Syringe) 25 ml Q15M PRN IV DECREASED GLUCOSE; Start 03/10/16 at 14:30 Dextrose (D50w Syringe) 50 ml Q15M PRN IV DECREASED GLUCOSE; Start 03/10/16 at 14:30 Glucagon (Glucagen) 1 mg Q15M PRN IM DECREASED GLUCOSE; Start 03/10/16 at 14: 30 Glucose (Glutose) 15 gm Q15M PRN BUCCAL DECREASED GLUCOSE; Start 03/10/16 at 14:30 Acetaminophen (Tylenol Liquid) 650 mg Q4H PRN GTB PAIN AND OR ELEVATED TEMP Last administered on 03/13/16at 00:36; Admin Dose 650 MG; Start 03/11/16 at 12: 30 Labetalol HCl (Labetalol) 20 mg Q2H PRN IV SBP>160 Last administered on at 13:17; Admin Dose 20 MG; Start 03/12/16 at 13:30 Ondansetron HCl (Zofran Inj) 4 mg Q6H PRN IV NAUSEA AND/OR VOMITING Last administered on 03/13/16at 14:00; Admin Dose 4 MG; Start 03/13/16 at 14:00 Lactobacillus Acidophilus/ Rhamnosus (Culturelle) 1 cap BID NGT Last administered on 03/21/16 09:24; Admin Dose 1 CAP; Start 03/14/16 at 21:00 Metronidazole (Flagyl) 500 mg Q8 NGT Last administered on 03/21/16 06:10; Admin Dose 500 MG; Start 03/14/16 at 22:00; Stop 03/22/16 at 23:00 Labetalol HCl (Labetalol) 10 mg Q6 PRN IV ELEVATED BLOOD PRESSURE; Start 03/15 at 18:00 Digoxin (Digoxin) 0.25 mg DAILY@13 PO Last administered on 03/20/16 16:01; Admin Dose 0.25 MG; Start 03/17/16 at 13:00 Diltiazem HCl (Cardizem Cd) 360 mg DAILY PO Last administered on 03/21/16 09:23 ; Admin Dose 360 MG; Start 03/17/16 at 11:30 Thiamine HCl (Vitamin B1) 100 mg DAILY PO Last administered on 03/21/16 09:23; Admin Dose 100 MG; Start 03/18/16 at 09:00 Metoprolol Tartrate (Lopressor) 25 mg Q8 PO Last administered on 03/20/16 22:19 ; Admin Dose 25 MG; Start 03/19/16 at 22:00 Potassium Chloride (Potassium Chloride Pwd/Soln) 40 meq DAILY PO Last administered on 03/21/16 09:24; Admin Dose 40 MEQ; Start 03/20/16 at 13:30 Magnesium Oxide (Mag-Ox 400) 400 mg TID PO Last administered on 03/21/16 09:24 ; Admin Dose 400 MG; Start 03/20/16 at 13:30 Famotidine (Pepcid) 20 mg DAILY PO Last administered on 03/21/16 09:23; Admin Dose 20 MG; Start 03/21/16 at 09:00 Diagnostic Test (Pha) (Accucheck) 1 ea 02 XX ; Start 03/21/16 at 02:00 Spironolactone (Aldactone) 25 mg DAILY PO Last administered on 03/21/16 09:23; Admin Dose 25 MG; Start 03/21/16 at 09:00 Assessment/Plan Chief Complaint/Hosp Course IMPRESSION AND PLAN: 1. Status post Hypoxemic hypercap resp failure now stable on nasal cannula 2. Encephalopathy resolved 3. MICHAEL 4. Sepsis. 5. Electrolyte Imbalance The patient will require: 1. Aspiration precautions 2. Bronchodilators 3. Correction of hyponatremia 4. Deep vein thrombosis and gastrointestinal prophylaxis. Discharge planning okay from pulmonary standpoint Problems: OSMANI LUIS MD, [facility] Mar 21, 2016 12:50
[2016-03-21] MEDS: DIGOXIN 0.25 MG TAB PO SCH (13:08)
[2016-03-21] MEDS ORDERED: POTA20PA23 PO (16:23)
[2016-03-21] MEDS ORDERED: METO-448 PO (16:23)
[2016-03-21] MEDS ORDERED: BUME1TAB18 PO (16:23)
[2016-03-21] MEDS ORDERED: DIGO250T PO (16:23)
[2016-03-21] MEDS ORDERED: DILT180C75 PO (16:23)
[2016-03-21] MEDS ORDERED: MAGN400T27 PO (16:23)
[2016-03-21] MEDS ORDERED: SPIR25TA76 PO (16:23)
--- NOTE | 2016-03-21 16:30 | PDOCDIS ---
Discharge Instructions CONDITION Patient Condition: Stable HOME CARE INSTRUCTIONS: Diet Instructions: 2gm NaSpecial Diet: Diabetes and 2grams sodium per day ACTIVITY: Activity Restrictions: Slowly Increase Activity FOLLOW UP/APPOINTMENTS Appointments follow-up with primary care doctor and [employer]. NEED TO SEE PRIMary doctor in 1 week to have a blood test, mainly to check your potassium OTHER ORDERS: Other Orders: Call 911 or go to the nearest ER if you develop chest pain, shortness of breath , fever, chills, palpitations DWAYNE CARTER MD Mar 21, 2016 16:30
[2016-03-21] MEDS: ATORVASTATIN 40 MG TAB NGT SCH (20:40)
[2016-03-21] MEDS: INSULIN GLARGINE [LANtus] 3 ML PEN SC SCH (22:07)
[2016-03-22] VITALS (10 sets, daily range): BP systolic 86–118; BP diastolic 51–69; PULSE 44–140; RESP 15–22
[2016-03-22] MEDS: ACCUCHECK XX SCH (02:00)
[2016-03-22] MEDS: METOPROLOL 25 MG TAB PO SCH ×2 (06:00→13:34)
[2016-03-22] MEDS: BUMETANIDE 1 MG TAB PO SCH (06:42)
[2016-03-22] MEDS: metroNIDAZOLE 500 MG TAB NGT SCH ×2 (06:42→13:34)
[2016-03-22 06:51] LABS: BASOPHILS % 0.5 % (0.0-2.0); EOSINOPHILS # 0.1 10^3/ul (0.0-0.5); EOSINOPHILS % 1.4 % (0.0-7.0); HEMATOCRIT 38.6 % (37.0-47.0); HEMOGLOBIN 12.4 g/dl (12.0-16.0); LYMPHOCYTES # 1.3 10^3/ul (0.8-2.9); MEAN CORPUSCULAR HEMOGLOBIN 28.2 pg (29.0-33.0); MEAN CORPUSCULAR VOLUME 88.2 fl (82.0-101.0); MEAN PLATELET VOLUME 8.9 fl (7.4-10.4); MONOCYTE # 0.8 10^3/ul (0.3-0.9); MONOCYTES % 9.2 % (0.0-11.0); NEUTROPHIL # 6.3 10^3/ul (1.6-7.5); NEUTROPHILS % 73.9 % (39.0-77.0); PLATELET COUNT 275 10^3/UL (140-440); RED BLOOD COUNT 4.37 10^6/ul (4.20-5.40); RED CELL DISTRIBUTION WIDTH 18.9 % (11.5-14.5); UNCORRECTED WBC 8.6 10^3/ul (4.8-10.8); WHITE BLOOD COUNT 8.6 10^3/ul (4.8-10.8)
[2016-03-22 06:58] LABS: CONDITION 1; LH ANALYZER COMMENTS 1
[2016-03-22 07:00] LABS: POTASSIUM 3.3 mmol/L (3.5-5.1)
[2016-03-22 07:03] LABS: CREATININE 0.74 mg/dl (0.44-1.00)
[2016-03-22 07:04] LABS: CALCIUM 8.4 mg/dl (8.4-10.2); MAGNESIUM 1.7 mg/dl (1.7-2.5); PHOSPHORUS 3.7 mg/dl (2.5-4.9)
[2016-03-22] MEDS: MAGNESIUM OXIDE 400 MG TAB PO SCH ×2 (08:26→13:34)
[2016-03-22] MEDS: APIXABAN 5 MG TABLET NGT SCH (08:26)
[2016-03-22] MEDS: SPIRONOLACTONE 25 MG TAB PO SCH (08:26)
[2016-03-22] MEDS: POTASSIUM CHLORIDE 20 MEQ POWDER FOR ORAL SOLN PO SCH (08:26)
[2016-03-22] MEDS: SALMETEROL/FLUTICASONE 250/50 INHA INH SCH (08:26)
[2016-03-22] MEDS: FAMOTIDINE 20 MG TAB PO SCH (08:26)
[2016-03-22] MEDS: LACTOBACILLUS RHAMNOSUS CAP NGT SCH (08:26)
[2016-03-22] MEDS: THIAMINE 100 MG TAB PO SCH (08:26)
[2016-03-22] MEDS: INSULIN ASPART [NOVOLOG] 3 ML PEN SC SCH ×2 (08:30→11:38)
[2016-03-22] MEDS ORDERED: POTASSIUM CHLORIDE 20 MEQ POWDER FOR ORAL SOLN PO ONE (08:30)
[2016-03-22] MEDS: DILTIAZEM (CD) 180 MG CAP PO SCH (08:32)
[2016-03-22] MEDS ORDERED: MAGNESIUM SULFATE 2 GM/50 ML 50 ML IVPB ONE (08:45)
--- NOTE | 2016-03-22 08:53 | CONS ---
Date/Time of Note Date/Time of Note DATE: 03/22/16 TIME: 08:47 Assessment/Plan Assessment/Plan Chief Complaint/Hosp Course Acute on chronic diastolic heart failure - echocardiogram 11/14/2015 showed LVEF 55%, mild diastolic dysfunction. Much improved but now with worse edema likely due to mobilization of fluids. Paroxysmal atrial fibrillation - rates better after addition of digoxin and metoprolol Acute on chronic hypoxic respiratory failure - intubated, now extubated 03/16 Pneumonia - left pleural effusion also noted Chronic obstructive pulmonary disease exacerbation - on 4 liters home oxygen at baseline Hypertension Dyslipidemia Diabetes mellitus -continue metoprolol 25mg q8h -continue digoxin 250mcg -diltiazem 360mg daily -discharge dose of bumex should be 2mg qam, 1mg qpm. Should also have potassium supplements at home -spironolactone 25mg daily to help with hypokalemia -continue Eliquis 5mg BID -continue atorvastatin 40mg daily Problems: Consultation Date/Type/Reason Admit Date/Time Mar 06, 2016 at 15:11 Type of Consultation: Cardiology 24 HR Interval Summary Free Text/Dictation Pt did not want to go home. PICC was removed and pt refused IV insertion. Breathing ok. Still with leg edema. Hypertensive overnight, some hypotension this am but no symptoms. Exam/Review of Systems Vital Signs Vitals Vital Signs Date Time Temp Pulse Resp B/P Pulse Ox O2 Delivery O2 Flow Rate FiO2 03/22/16 08:19 97.7 58 22 86/51 95 03/21/16 21:44 3.0 03/21/16 19:45 Nasal Cannula Intake and Output 03/21/16 03/21/16 03/22/16 15:00 23:00 07:00 Intake Total 900 ml 1200 ml Output Total 2300 ml 3200 ml Balance -1400 ml -2000 ml Exam Constitutional: alert, oriented Head: atraumatic, normocephalic Neck: No jvd (difficult ) Respiratory: crackles/rales (mild), No clear to auscultation Cardiovascular: No regular rate and rhythm Gastrointestinal: non-tender, soft 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: nl mental status, nl speech Results Result Diagram: 03/22/16 0620 03/22/16 0620 Results 24 hrs Laboratory Tests Test 03/21/16 12:03 03/21/16 17:03 03/21/16 20:33 03/22/16 06:20 Bedside Glucose 216 165 161 Anion Gap 10 Basophils # 0.0 Basophils % 0.5 Blood Morphology Comment Blood Urea Nitrogen 14 Calcium Level 8.4 Carbon Dioxide Level 40 H Chloride Level 92 L Creatinine 0.74 Eosinophils # 0.1 Eosinophils % 1.4 Glucose Level 164 Hematocrit 38.6 Hemoglobin 12.4 Lymphocytes # 1.3 Lymphocytes % 15.0 Magnesium Level 1.7 Mean Corpuscular Hemoglobin 28.2 L Mean Corpuscular Hemoglobin Concent 32.0 Mean Corpuscular Volume 88.2 Mean Platelet Volume 8.9 Monocytes # 0.8 Monocytes % 9.2 Neutrophils # 6.3 Neutrophils % 73.9 Nucleated Red Blood Cells # 0.0 Nucleated Red Blood Cells % 0.0 Phosphorus Level 3.7 Platelet Count 275 Potassium Level 3.3 L Red Blood Count 4.37 Red Cell Distribution Width 18.9 H Sodium Level 139 White Blood Count 8.6 Test 03/22/16 07:54 Bedside Glucose 182 Medications Medications Current Medications Salmeterol Xinafoate/ Fluticasone (Advair 250/50 Diskus) 1 inh BID INH Last administered on 03/22/16 08:26; Admin Dose 1 INH; Start 03/06/16 at 21:00 Apixaban (Eliquis) 5 mg BID NGT Last administered on 03/22/16 08:26; Admin Dose 5 MG; Start 03/08/16 at 10:50 Atorvastatin Calcium (Lipitor) 40 mg HS NGT Last administered on 03/21/16 20:40 ; Admin Dose 40 MG; Start 03/08/16 at 10:50 Insulin Glargine (Lantus) 22 unit HS SC Last administered on 03/21/16 22:07; Admin Dose 22 UNIT; Start 03/08/16 at 21:00 Miscellaneous Information 1 ea NOTE XX ; Start 03/10/16 at 14:30 Glucose (Glutose) 15 gm Q15M PRN PO DECREASED GLUCOSE; Start 03/10/16 at 14:30 Glucose (Glutose) 22.5 gm Q15M PRN PO DECREASED GLUCOSE; Start 03/10/16 at 14: 30 Dextrose (D50w Syringe) 25 ml Q15M PRN IV DECREASED GLUCOSE; Start 03/10/16 at 14:30 Dextrose (D50w Syringe) 50 ml Q15M PRN IV DECREASED GLUCOSE; Start 03/10/16 at 14:30 Glucagon (Glucagen) 1 mg Q15M PRN IM DECREASED GLUCOSE; Start 03/10/16 at 14: 30 Glucose (Glutose) 15 gm Q15M PRN BUCCAL DECREASED GLUCOSE; Start 03/10/16 at 14:30 Acetaminophen (Tylenol Liquid) 650 mg Q4H PRN GTB PAIN AND OR ELEVATED TEMP Last administered on 03/13/16at 00:36; Admin Dose 650 MG; Start 03/11/16 at 12: 30 Labetalol HCl (Labetalol) 20 mg Q2H PRN IV SBP>160 Last administered on at 13:17; Admin Dose 20 MG; Start 03/12/16 at 13:30 Ondansetron HCl (Zofran Inj) 4 mg Q6H PRN IV NAUSEA AND/OR VOMITING Last administered on 03/13/16at 14:00; Admin Dose 4 MG; Start 03/13/16 at 14:00 Lactobacillus Acidophilus/ Rhamnosus (Culturelle) 1 cap BID NGT Last administered on 03/22/16 08:26; Admin Dose 1 CAP; Start 03/14/16 at 21:00 Metronidazole (Flagyl) 500 mg Q8 NGT Last administered on 03/22/16 06:42; Admin Dose 500 MG; Start 03/14/16 at 22:00; Stop 03/22/16 at 23:00 Labetalol HCl (Labetalol) 10 mg Q6 PRN IV ELEVATED BLOOD PRESSURE; Start 03/15 at 18:00 Digoxin (Digoxin) 0.25 mg DAILY@13 PO Last administered on 03/21/16 13:08; Admin Dose 0.25 MG; Start 03/17/16 at 13:00 Diltiazem HCl (Cardizem Cd) 360 mg DAILY PO Last administered on 03/21/16 09:23 ; Admin Dose 360 MG; Start 03/17/16 at 11:30 Thiamine HCl (Vitamin B1) 100 mg DAILY PO Last administered on 03/22/16 08:26; Admin Dose 100 MG; Start 03/18/16 at 09:00 Metoprolol Tartrate (Lopressor) 25 mg Q8 PO Last administered on 03/21/16 22:02 ; Admin Dose 25 MG; Start 03/19/16 at 22:00 Potassium Chloride (Potassium Chloride Pwd/Soln) 40 meq DAILY PO Last administered on 03/22/16 08:26; Admin Dose 40 MEQ; Start 03/20/16 at 13:30 Magnesium Oxide (Mag-Ox 400) 400 mg TID PO Last administered on 03/22/16 08:26 ; Admin Dose 400 MG; Start 03/20/16 at 13:30 Famotidine (Pepcid) 20 mg DAILY PO Last administered on 03/22/16 08:26; Admin Dose 20 MG; Start 03/21/16 at 09:00 Diagnostic Test (Pha) (Accucheck) 1 ea 02 XX ; Start 03/21/16 at 02:00 Spironolactone 25 mg 25 mg DAILY PO Last administered on 03/22/16 08:26; Admin Dose 25 MG; Start 03/21/16 at 09:00 Magnesium Sulfate (Magnesium Sulfate 2 Gm/50 ml) 50 ml @ 25 mls/hr ONCE ONCE IVPB ; Start 03/22/16 at 08:45; Stop 03/22/16 at 10:44 AMY SLOAN Mar 22, 2016 08:52
[2016-03-22] MEDS ORDERED: MAGNESIUM OXIDE 400 MG TAB PO ONE (09:00)
[2016-03-22] MEDS: IPRATROPIUM (NEB) 0.5 MG/2.5 ML AMP HHN PRN (09:43)
[2016-03-22] MEDS: LEVALBUTEROL (NEB) 1.25 MG/0.5 ML AMP HHN PRN (09:44)
[2016-03-22] MEDS ORDERED: POTASSIUM CHLORIDE (SR) 20 MEQ TAB PO ONE (11:00)
[2016-03-22] MEDS ORDERED: BUME1TAB18 PO ×2 (12:20)
--- NOTE | 2016-03-22 12:24 | PN ---
Date/Time of Note Date/Time of Note DATE: 03/21/16 TIME: 12:22 Assessment/Plan VTE Prophylaxis VTE Prophylaxis Intervention: other (eliquis) Lines/Catheters IV Catheter Type (from Nrsg): PICC Line Central line still needed: Yes Urinary Cath still in place: No Assessment/Plan Assessment/Plan 1) Ac Hypoxic Resp Failure; stable/ extubated; risk of re-intubation; appears to want full care. insight is questionable. cont chf/ a fib care. 2) CHF- ac/decompensated/diastolic; stable; cont diuretics/ rt control 3) Htn 4) OHS/MICHAEL? sleep study outpt? 5) M Obesity 6) A Fib rvr; cont eliquis; dc home if Rt stable w ambulation 7) COPD 8) Chr Resp failure; home o2 4l 9) Ftt; PT; DC home w home health/pt/safety eval 10) Anemia 11) Abn Ca 125 12) Thyroid nodule - ultrasound 13) Adrenal nodule? - mri 14) Fever- improved; c diff apparently -ve. 15) Diarrhea; finish flagyl Subjective 24 Hr Interval Summary Free Text/Dictation feeling better, but c/o lower ext edema Exam/Review of Systems Vital Signs Vitals Vital Signs Date Time Temp Pulse Resp B/P Pulse Ox O2 Delivery O2 Flow Rate FiO2 03/22/16 12:15 115 03/22/16 12:06 97.7 22 114/55 95 03/22/16 09:47 Nasal Cannula 3.0 Intake and Output 03/21/16 03/21/16 03/22/16 15:00 23:00 07:00 Intake Total 900 ml 1200 ml Output Total 2300 ml 3200 ml Balance -1400 ml -2000 ml Exam Constitutional: alert Respiratory: clear to auscultation Cardiovascular: irregular rhythm Gastrointestinal: non-tender (nd; no r r g; obese), soft Musculoskeletal: other Extremities: other (mild edema) Results Result Diagram: 03/22/16 0620 03/22/16 0620 Results 24 hrs Laboratory Tests Test 03/21/16 17:03 03/21/16 20:33 03/22/16 06:20 03/22/16 07:54 Bedside Glucose 165 161 182 Anion Gap 10 Basophils # 0.0 Basophils % 0.5 Blood Morphology Comment Blood Urea Nitrogen 14 Calcium Level 8.4 Carbon Dioxide Level 40 H Chloride Level 92 L Creatinine 0.74 Eosinophils # 0.1 Eosinophils % 1.4 Glucose Level 164 Hematocrit 38.6 Hemoglobin 12.4 Lymphocytes # 1.3 Lymphocytes % 15.0 Magnesium Level 1.7 Mean Corpuscular Hemoglobin 28.2 L Mean Corpuscular Hemoglobin Concent 32.0 Mean Corpuscular Volume 88.2 Mean Platelet Volume 8.9 Monocytes # 0.8 Monocytes % 9.2 Neutrophils # 6.3 Neutrophils % 73.9 Nucleated Red Blood Cells # 0.0 Nucleated Red Blood Cells % 0.0 Phosphorus Level 3.7 Platelet Count 275 Potassium Level 3.3 L Red Blood Count 4.37 Red Cell Distribution Width 18.9 H Sodium Level 139 White Blood Count 8.6 Test 03/22/16 10:57 Bedside Glucose 244 H Medications Medications Current Medications Salmeterol Xinafoate/ Fluticasone (Advair 250/50 Diskus) 1 inh BID INH Last administered on 03/22/16 08:26; Admin Dose 1 INH; Start 03/06/16 at 21:00 Apixaban (Eliquis) 5 mg BID NGT Last administered on 03/22/16 08:26; Admin Dose 5 MG; Start 03/08/16 at 10:50 Atorvastatin Calcium (Lipitor) 40 mg HS NGT Last administered on 03/21/16 20:40 ; Admin Dose 40 MG; Start 03/08/16 at 10:50 Insulin Glargine (Lantus) 22 unit HS SC Last administered on 03/21/16 22:07; Admin Dose 22 UNIT; Start 03/08/16 at 21:00 Miscellaneous Information 1 ea NOTE XX ; Start 03/10/16 at 14:30 Glucose (Glutose) 15 gm Q15M PRN PO DECREASED GLUCOSE; Start 03/10/16 at 14:30 Glucose (Glutose) 22.5 gm Q15M PRN PO DECREASED GLUCOSE; Start 03/10/16 at 14: 30 Dextrose (D50w Syringe) 25 ml Q15M PRN IV DECREASED GLUCOSE; Start 03/10/16 at 14:30 Dextrose (D50w Syringe) 50 ml Q15M PRN IV DECREASED GLUCOSE; Start 03/10/16 at 14:30 Glucagon (Glucagen) 1 mg Q15M PRN IM DECREASED GLUCOSE; Start 03/10/16 at 14: 30 Glucose (Glutose) 15 gm Q15M PRN BUCCAL DECREASED GLUCOSE; Start 03/10/16 at 14:30 Acetaminophen (Tylenol Liquid) 650 mg Q4H PRN GTB PAIN AND OR ELEVATED TEMP Last administered on 03/13/16at 00:36; Admin Dose 650 MG; Start 03/11/16 at 12: 30 Labetalol HCl (Labetalol) 20 mg Q2H PRN IV SBP>160 Last administered on at 13:17; Admin Dose 20 MG; Start 03/12/16 at 13:30 Ondansetron HCl (Zofran Inj) 4 mg Q6H PRN IV NAUSEA AND/OR VOMITING Last administered on 03/13/16at 14:00; Admin Dose 4 MG; Start 03/13/16 at 14:00 Lactobacillus Acidophilus/ Rhamnosus (Culturelle) 1 cap BID NGT Last administered on 03/22/16 08:26; Admin Dose 1 CAP; Start 03/14/16 at 21:00 Metronidazole (Flagyl) 500 mg Q8 NGT Last administered on 03/22/16 06:42; Admin Dose 500 MG; Start 03/14/16 at 22:00; Stop 03/22/16 at 23:00 Labetalol HCl (Labetalol) 10 mg Q6 PRN IV ELEVATED BLOOD PRESSURE; Start 03/15 at 18:00 Digoxin (Digoxin) 0.25 mg DAILY@13 PO Last administered on 03/21/16 13:08; Admin Dose 0.25 MG; Start 03/17/16 at 13:00 Diltiazem HCl (Cardizem Cd) 360 mg DAILY PO Last administered on 03/21/16 09:23 ; Admin Dose 360 MG; Start 03/17/16 at 11:30 Thiamine HCl (Vitamin B1) 100 mg DAILY PO Last administered on 03/22/16 08:26; Admin Dose 100 MG; Start 03/18/16 at 09:00 Metoprolol Tartrate (Lopressor) 25 mg Q8 PO Last administered on 03/21/16 22:02 ; Admin Dose 25 MG; Start 03/19/16 at 22:00 Potassium Chloride (Potassium Chloride Pwd/Soln) 40 meq DAILY PO Last administered on 03/22/16 08:26; Admin Dose 40 MEQ; Start 03/20/16 at 13:30 Magnesium Oxide (Mag-Ox 400) 400 mg TID PO Last administered on 03/22/16 08:26 ; Admin Dose 400 MG; Start 03/20/16 at 13:30 Famotidine (Pepcid) 20 mg DAILY PO Last administered on 03/22/16 08:26; Admin Dose 20 MG; Start 03/21/16 at 09:00 Diagnostic Test (Pha) (Accucheck) XX ; Start 03/21/16 at 02:00 Spironolactone (Aldactone) 25 mg DAILY PO Last administered on 03/22/16 08:26; Admin Dose 25 MG; Start 03/21/16 at 09:00 DWAYNE CARTER MD Mar 22, 2016 12:23
[2016-03-22] MEDS: DIGOXIN 0.25 MG TAB PO SCH (13:34)
--- NOTE | 2016-03-22 15:35 | CONS ---
Date/Time of Note Date/Time of Note DATE: 03/22/16 TIME: 15:32 Consult Date/Type/Reason Admit Date/Time Mar 06, 2016 at 15:11 Type of Consultation: Pulm Subjective Comfortable No new events. Objective Vital Signs Date Time Temp Pulse Resp B/P Pulse Ox O2 Delivery O2 Flow Rate FiO2 03/22/16 12:15 115 03/22/16 12:06 97.7 22 114/55 95 03/22/16 09:47 Nasal Cannula 3.0 Intake and Output 03/21/16 03/21/16 03/22/16 15:00 23:00 07:00 Intake Total 900 ml 1200 ml Output Total 2300 ml 3200 ml Balance -1400 ml -2000 ml PHYSICAL EXAMINATION: VITAL SIGNS: as above NECK: Supple. No JVD or lymphadenopathy. CARDIAC EXAM: S1, S2. No added sounds or murmurs. CHEST: Diminished air entry, both lung bases. ABDOMEN: Obese, soft, nontender. No guarding, no rebound. EXTREMITIES: No cyanosis, clubbing or edema. NEUROLOGIC: Grossly intact. No focal deficits. Results/Medications Result Diagram: 03/22/16 0620 03/22/16 0620 Results 24 hrs Laboratory Tests Test 03/21/16 17:03 03/21/16 20:33 03/22/16 06:20 03/22/16 07:54 Bedside Glucose 165 161 182 Anion Gap 10 Basophils # 0.0 Basophils % 0.5 Blood Morphology Comment Blood Urea Nitrogen 14 Calcium Level 8.4 Carbon Dioxide Level 40 H Chloride Level 92 L Creatinine 0.74 Eosinophils # 0.1 Eosinophils % 1.4 Glucose Level 164 Hematocrit 38.6 Hemoglobin 12.4 Lymphocytes # 1.3 Lymphocytes % 15.0 Magnesium Level 1.7 Mean Corpuscular Hemoglobin 28.2 L Mean Corpuscular Hemoglobin Concent 32.0 Mean Corpuscular Volume 88.2 Mean Platelet Volume 8.9 Monocytes # 0.8 Monocytes % 9.2 Neutrophils # 6.3 Neutrophils % 73.9 Nucleated Red Blood Cells # 0.0 Nucleated Red Blood Cells % 0.0 Phosphorus Level 3.7 Platelet Count 275 Potassium Level 3.3 L Red Blood Count 4.37 Red Cell Distribution Width 18.9 H Sodium Level 139 White Blood Count 8.6 Test 03/22/16 10:57 Bedside Glucose 244 H Medications Current Medications Salmeterol Xinafoate/ Fluticasone (Advair 250/50 Diskus) 1 inh BID INH Last administered on 03/22/16 08:26; Admin Dose 1 INH; Start 03/06/16 at 21:00 Apixaban (Eliquis) 5 mg BID NGT Last administered on 03/22/16 08:26; Admin Dose 5 MG; Start 03/08/16 at 10:50 Atorvastatin Calcium (Lipitor) 40 mg HS NGT Last administered on 03/21/16 20:40 ; Admin Dose 40 MG; Start 03/08/16 at 10:50 Insulin Glargine (Lantus) 22 unit HS SC Last administered on 03/21/16 22:07; Admin Dose 22 UNIT; Start 03/08/16 at 21:00 Miscellaneous Information 1 ea NOTE XX ; Start 03/10/16 at 14:30 Glucose (Glutose) 15 gm Q15M PRN PO DECREASED GLUCOSE; Start 03/10/16 at 14:30 Glucose (Glutose) 22.5 gm Q15M PRN PO DECREASED GLUCOSE; Start 03/10/16 at 14: 30 Dextrose (D50w Syringe) 25 ml Q15M PRN IV DECREASED GLUCOSE; Start 03/10/16 at 14:30 Dextrose (D50w Syringe) 50 ml Q15M PRN IV DECREASED GLUCOSE; Start 03/10/16 at 14:30 Glucagon (Glucagen) 1 mg Q15M PRN IM DECREASED GLUCOSE; Start 03/10/16 at 14: 30 Glucose (Glutose) 15 gm Q15M PRN BUCCAL DECREASED GLUCOSE; Start 03/10/16 at 14:30 Acetaminophen (Tylenol Liquid) 650 mg Q4H PRN GTB PAIN AND OR ELEVATED TEMP Last administered on 03/13/16at 00:36; Admin Dose 650 MG; Start 03/11/16 at 12: 30 Labetalol HCl (Labetalol) 20 mg Q2H PRN IV SBP>160 Last administered on at 13:17; Admin Dose 20 MG; Start 03/12/16 at 13:30 Ondansetron HCl (Zofran Inj) 4 mg Q6H PRN IV NAUSEA AND/OR VOMITING Last administered on 03/13/16at 14:00; Admin Dose 4 MG; Start 03/13/16 at 14:00 Lactobacillus Acidophilus/ Rhamnosus (Culturelle) 1 cap BID NGT Last administered on 03/22/16 08:26; Admin Dose 1 CAP; Start 03/14/16 at 21:00 Metronidazole (Flagyl) 500 mg Q8 NGT Last administered on 03/22/16 13:34; Admin Dose 500 MG; Start 03/14/16 at 22:00; Stop 03/22/16 at 23:00 Labetalol HCl (Labetalol) 10 mg Q6 PRN IV ELEVATED BLOOD PRESSURE; Start 03/15 at 18:00 Digoxin (Digoxin) 0.25 mg DAILY@13 PO Last administered on 03/22/16 13:34; Admin Dose 0.25 MG; Start 03/17/16 at 13:00 Diltiazem HCl (Cardizem Cd) 360 mg DAILY PO Last administered on 03/21/16 09:23 ; Admin Dose 360 MG; Start 03/17/16 at 11:30 Thiamine HCl (Vitamin B1) 100 mg DAILY PO Last administered on 03/22/16 08:26; Admin Dose 100 MG; Start 03/18/16 at 09:00 Metoprolol Tartrate (Lopressor) 25 mg Q8 PO Last administered on 03/22/16 13:34 ; Admin Dose 25 MG; Start 03/19/16 at 22:00 Potassium Chloride (Potassium Chloride Pwd/Soln) 40 meq DAILY PO Last administered on 03/22/16 08:26; Admin Dose 40 MEQ; Start 03/20/16 at 13:30 Magnesium Oxide (Mag-Ox 400) 400 mg TID PO Last administered on 03/22/16 13:34 ; Admin Dose 400 MG; Start 03/20/16 at 13:30 Famotidine (Pepcid) 20 mg DAILY PO Last administered on 03/22/16 08:26; Admin Dose 20 MG; Start 03/21/16 at 09:00 Diagnostic Test (Pha) (Accucheck) 1 ea 02 XX ; Start 03/21/16 at 02:00 Spironolactone (Aldactone) 25 mg DAILY PO Last administered on 03/22/16 08:26; Admin Dose 25 MG; Start 03/21/16 at 09:00 Assessment/Plan Chief Complaint/Hosp Course IMPRESSION AND PLAN: 1. Status post Hypoxemic hypercap resp failure now stable on nasal cannula 2. Encephalopathy resolved 3. MICHAEL 4. Sepsis. 5. Electrolyte Imbalance The patient will require: 1. Aspiration precautions 2. Bronchodilators 3. Correction of hyponatremia 4. Deep vein thrombosis and gastrointestinal prophylaxis. Discharge planning okay from pulmonary standpoint Problems: OSMANI LUIS MD, [facility] Mar 22, 2016 15:35
[2016-03-22] MEDS ORDERED: BUMETANIDE 1 MG TAB PO SCH (18:00)
== END 2016-03-22 15:18 | disposition home or self-care (01) | DRG 207 ==
LOC: E/R 11:57 → TEL 15:11 → ICU 03-08 08:52 → TEL 03-18 15:38
PROVIDERS: ADMIT Family Medicine; ATTEND Family Medicine
PROC: 0BH17EZ Insertion of Endotracheal Airway into Trachea, Via Natural or Artificial Opening (ICD-10-PCS; principal; 2016-03-08)
PROC: 5A1955Z Respiratory Ventilation, Greater than 96 Consecutive Hours (ICD-10-PCS; 2016-03-08)
DX: J96.21 Acute and chronic respiratory failure with hypoxia (principal); J69.0 Pneumonitis due to inhalation of food and vomit; G92 Toxic encephalopathy; I50.33 Acute on chronic diastolic (congestive) heart failure; J44.1 Chronic obstructive pulmonary disease with (acute) exacerbation; E66.2 Morbid (severe) obesity with alveolar hypoventilation; Z68.41 Body mass index [BMI] 40.0-44.9, adult; E11.65 Type 2 diabetes mellitus with hyperglycemia; I48.91 Unspecified atrial fibrillation; E87.5 Hyperkalemia; E78.5 Hyperlipidemia, unspecified; E04.9 Nontoxic goiter, unspecified; G47.33 Obstructive sleep apnea (adult) (pediatric); I10 Essential (primary) hypertension; Z91.14 Patient's other noncompliance with medication regimen; E87.6 Hypokalemia; R14.0 Abdominal distension (gaseous); R19.7 Diarrhea, unspecified
CPT/HCPCS: 31500; 36415; 36569; 36600; 71010; 71260; 76536; 76700; 76937; 80048; 80053; 80162; 80202; 82378; 82550; 82553; 82803; 82962; 83036; 83735; 83880; 84100; 84439; 84443; 84480; 84484; 85025; 85610; 85730; 86301; 86304; 87040; 87070; 87075; 87081; 87086; 89220; 92610; 93005; 94002; 94003; 94640; 94644; 94664; 94770; 96372; 96374; 96375; 96376; 97001; 97110; 97116; 97530; J1120; C9113; J0692; J1650; J1815; J1940; J1956; J2405; J2997; J3370; J3475; J3480; J7040; J7050; Q9967

== ENCOUNTER 2016-05-03 17:59 | Inpatient (IN) | payer MEDICARE, OTHER ==
[~2016-05-03] VITALS: Ht 170.2 cm; Wt 121.8 kg
[~2016-05-03 17:59] MED LIST changes: +BUME1TAB18 PO; -BUME2TAB18 PO; +DIGO250T PO; +DILT180C75 PO; -LACTINEX PO; -LANT3I SC; -LEVO750T25 PO; +MAGN400T27 PO; -METF-388 PO; +METF1000 PO; +METO-448 PO; -NOVO3I SC; +POTA20PA23 PO; +SPIR25TA PO; -SPIR25TA76 PO
[2016-05-03 19:00] VITALS: Ht 170.2 cm; Wt 121.8 kg
[2016-05-03] MEDS ORDERED: ALBUTEROL 0.5% (NEB) 2.5 MG/0.5 ML AMP INH STA (20:09)
[2016-05-03] MEDS ORDERED: METHYLPREDNISOLONE 125 MG INJ IV STA (20:09)
[2016-05-03] MEDS ORDERED: LORAZEPAM 2 MG INJ IV ONE (20:30)
[2016-05-03] MEDS ORDERED: FUROSEMIDE 40 MG INJ IV ONE ×2 (20:30→21:30)
[2016-05-03] MEDS ORDERED: ASPIRIN 81 MG TAB PO ONE (20:30)
[2016-05-03] MEDS ORDERED: ENALAPRILAT 1.25 MG INJ IV ONE (20:30)
[2016-05-03 20:45] LABS: BASOPHILS % 0.3 % (0.0-2.0); HEMATOCRIT 37.1 % (37.0-47.0); HEMOGLOBIN 11.9 g/dl (12.0-16.0); LYMPHOCYTES # 1.6 10^3/ul (0.8-2.9); LYMPHOCYTES % 9.6 % (15.0-51.0); MEAN CORPUSCULAR HEMOGLOBIN 28.3 pg (29.0-33.0); MEAN CORPUSCULAR HGB CONC 32.2 g/dl (32.0-37.0); MEAN PLATELET VOLUME 8.3 fl (7.4-10.4); MONOCYTES % 6.2 % (0.0-11.0); NEUTROPHIL # 14.1 10^3/ul (1.6-7.5); NEUTROPHILS % 83.9 % (39.0-77.0); PLATELET COUNT 280 10^3/UL (140-440); RED BLOOD COUNT 4.21 10^6/ul (4.20-5.40); RED CELL DISTRIBUTION WIDTH 17.6 % (11.5-14.5); UNCORRECTED WBC 16.8 10^3/ul (4.8-10.8); WHITE BLOOD COUNT 16.8 10^3/ul (4.8-10.8)
[2016-05-03 20:47] LABS: ALBUMIN 3.5 g/dl (3.3-4.9); CHLORIDE 86 mmol/L (97-110); CONDITION 1; LH ANALYZER COMMENTS 1
[2016-05-03 20:48] LABS: POTASSIUM 5.1 mmol/L (3.5-5.1); SODIUM 135 mmol/L (135-144)
[2016-05-03 20:50] LABS: ALANINE AMINOTRANSFERASE 55 IU/L (13-69); ALKALINE PHOSPHATASE 443 IU/L (42-121); ANION GAP 17 (8-16); ASPARTATE AMINO TRANSFERASE 56 IU/L (15-46); BILIRUBIN,INDIRECT 0.3 mg/dl (0-1.1); BILIRUBIN,TOTAL 0.3 mg/dl (0.2-1.3); BLOOD UREA NITROGEN 14 mg/dl (7-20); CARBON DIOXIDE 37 mmol/L (21-31); CREATININE 0.71 mg/dl (0.44-1.00); GLUCOSE 318 mg/dl (70-220)
[2016-05-03 20:59] LABS: B-TYPE NATRIURETIC PEPTIDE 2150 PG/ML (0-125)
[2016-05-03 21:06] LABS: TROPONIN-I < 0.012 ng/ml (0.00-0.12)
--- NOTE | 2016-05-03 21:09 | RADRPT ---
PROCEDURE: XR Chest. CLINICAL INDICATION: Abdominal pain. TECHNIQUE: Single AP portable chest COMPARISON: 03/18/2016 FINDINGS: Marked cardiomegaly increased compared to prior study with vascular congestion and left air space op acity. . No pneumothorax. The osseous structures and soft tissues are unremarkable. IMPRESSION: 1. Increased cardiomegaly and vascular congestion.. RPTAT:AAJJ Elizabeth Levine Physician Date Time Electronically viewed and signed by Physician Jose C on 05/03/2016 21:08 RACHEL/
[2016-05-03] MEDS ORDERED: CEFTRIAXONE 1 GM/50 ML (PMX) 50 ML IVPB ONE (21:30)
[2016-05-03] MEDS ORDERED: AZITHROMYCIN 500MG/NS (PMX) 250 ML IVPB ONE (21:30)
[2016-05-03 22:03] LABS: AADO2 Arterial 119.9 mmHg (7.0-24.0); Arterial Base Excess 9.4 mmol/L (-3.0-3); Arterial COHb 0.7 % (0.0-3.0); Arterial Fraction of Oxyhgb 89.6 % (93.0-99.0); Arterial MetHb 0.2 % (0.0-1.5); Arterial Total Hemglobin 12.9 g/dl (12.0-18.0); MODE NASAL CANNULA
--- NOTE | 2016-05-03 22:03 | ERA ---
ER Documentation Chief Complaint Date/Time DATE: 05/03/16 TIME: 21:56 Chief Complaint SOB/COUGH X 3 DAYS, DENIES FEVER AT HOME HPI 65-year-old woman with a history of congestive heart failure and chronic obstructive pulmonary disease presents with shortness of breath and cough 3 days. She states she has been using albuterol pump without relief and uses home oxygen as well. She denies fevers or chills, no chest pain, no vomiting or diarrhea, no headache or blurry vision. ROS All systems reviewed and are negative except as per history of present illness. Medications Home Meds Active Scripts Bumetanide* (Bumetanide*) 1 Mg Tablet, 1 MG PO QPM for 30 Days, TAB Prov:DWAYNE CARTER MD 03/22/16 Bumetanide* (Bumetanide*) 1 Mg Tablet, 2 MG PO QAM for 30 Days, TAB Prov:DWAYNE CARTER MD 03/22/16 Spironolactone* (Aldactone*) 25 Mg Tablet, 25 MG PO DAILY for 30 Days, TAB Prov:DWAYNE CARTER MD 03/21/16 Potassium Chloride (Potassium Chloride) 20 Meq Packet, 40 MEQ PO DAILY for 30 Days, PACKET Prov:DWAYNE CARTER MD 03/21/16 Metoprolol Tartrate* (Lopressor*) 25 Mg Tab, 25 MG PO Q8 for 30 Days, TAB Prov:DWAYNE CARTER MD 03/21/16 Diltiazem Hcl* (Cardizem CD*) 180 Mg Cap.sr.24h, 360 MG PO DAILY for 30 Days Prov:DWAYNE CARTER MD 03/21/16 Digoxin* (Digitek*) 250 Mcg Tablet, 0.25 MG PO DAILY@13 for 30 Days, TAB Prov:DWAYNE CARTER MD 03/21/16 Diltiazem Hcl* (Cardizem CD*) 240 Mg Cap.sr.24h, 240 MG PO DAILY for 60 Days, # 60 CAP 2 Refills Prov:JOB MG 01/02/16 Apixaban* (Eliquis*) 5 Mg Tablet, 5 MG PO BID for 60 Days, TAB 3 Refills Prov:JOB MG 01/02/16 Reported Medications Glimepiride* (Glimepiride*) 4 Mg Tablet, 4 MG PO WITH BREAKFAST, TAB 08/19/15 Atorvastatin* (Atorvastatin*) 40 Mg Tablet, 40 MG PO HS, TAB 08/28/14 Discontinued Reported Medications Metformin Hcl* (Metformin Hcl*) 1,000 Mg Tablet, 1000 MG PO WITH BREAKFAST DINNE , #30 TAB 08/19/15 Discontinued Scripts Magnesium Oxide* (Mag-Oxide*) 400 Mg Tablet, 400 MG PO TID for 30 Days, TAB Prov:DWAYNE CARTER MD 03/21/16 Allergies Allergies: Coded Allergies: No Known Allergies (Verified Allergy, Unknown, 05/03/16) PMhx/Soc Obesity hypoventilation syndrome, hypertension, congestive heart failure diastolic, chronic obstructive pulmonary disease, recent left-sided pneumonia, atrial fibrillation, diabetes mellitus Medical and Surgical Hx: pt denies Surgical Hx History of Surgery: No Anesthesia Reaction: No Hx 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 Disorder: No Hx Respiratory Disorders: Yes (COPD) Hx Cardiac Disorders: Yes (CHF, HTN) Hx Psychiatric Problems: No Hx Miscellaneous Medical Probl: Yes (Obesity, COPD, CHF, A-fib, respiratory failure, PICC line) Hx Alcohol Use: Yes (socially) Hx Substance Use: No Hx Tobacco Use: Yes Smoking Status: Former smoker FmHx Family History: No diabetes Physical Exam Vitals Vital Signs Date Time Temp Pulse Resp B/P Pulse Ox O2 Delivery O2 Flow Rate FiO2 05/03/16 21:30 109 17 117/79 99 Nasal Cannula 4.0 05/03/16 21:04 92 3.0 05/03/16 21:03 82 24 92 Nasal Cannula 3.0 05/03/16 20:00 Nasal Cannula 4 05/03/16 20:00 Nasal Cannula 4.0 05/03/16 19:00 99.7 75 24 114/78 89 Physical Exam GENERAL: Well-developed, well-nourished, well-hydrated, in no apparent distress , looks nontoxic in appearance. Afebrile, tachycardia HEENT: Moist mucous membranes, pink conjunctiva, no cervical spine tenderness or step-off deformities, no goiter, no jaundice or icterus, extraocular movements intact without pain. No submandibular induration, and no pharyngeal erythema NEURO: Alert and oriented 3, cranial nerves II through XII intact bilaterally, pupils equal round reactive to light, no focal deficits or facial asymmetry, sensation intact distally Strength 5/5 in upper and lower extremities bilaterally CARDIAC: Tachycardic and regular, no murmurs rubs or gallops LUNGS: Poor entry bilaterally with bibasilar crackles, no wheezing or stridor, positive for tachypnea and dyspnea ABDOMEN: Soft nontender, no guarding, no rigidity, no rebound, no psoas sign no obturator sign. Normoactive bowel sounds SKIN: Warm and dry to touch, no abrasions, contusions, or hematomas, no lacerations, no ecchymosis, no target lesions, and without ulcers EXTREMITIES: No clubbing cyanosis, 1+ pitting edema in the lower extremities bilaterally, calves are bilaterally symmetrical, no Homans sign, no popliteal cord sign. Distal pulses equal and bilateral PSYCH: Normal affect without agitation or irritability Result Diagram: 05/03/16201905/03/162019 Results 24 hrs Laboratory Tests Test 05/03/16 20:20 Alanine Aminotransferase (ALT/SGPT) 55IU/L Albumin 3.5g/dl Albumin/Globulin Ratio 1.00 Alkaline Phosphatase 443IU/L Anion Gap 17 Aspartate Amino Transf (AST/SGOT) 56IU/L B-Type Natriuretic Peptide 2150PG/ML Basophils # 0.010^3/ul Basophils % 0.3% Blood Morphology Comment Blood Urea Nitrogen 14mg/dl Calcium Level 9.0mg/dl Carbon Dioxide Level 37mmol/L Chloride Level 86mmol/L Creatinine 0.71mg/dl Direct Bilirubin 0.00mg/dl Eosinophils # 0.010^3/ul Eosinophils % 0.0% Globulin 3.50g/dl Glucose Level 318mg/dl Hematocrit 37.1% Hemoglobin 11.9g/dl Indirect Bilirubin 0.3mg/dl Lipase 136U/L Lymphocytes # 1.610^3/ul Lymphocytes % 9.6% Mean Corpuscular Hemoglobin 28.3pg Mean Corpuscular Hemoglobin Concent 32.2g/dl Mean Corpuscular Volume 88.0fl Mean Platelet Volume 8.3fl Monocytes # 1.010^3/ul Monocytes % 6.2% Neutrophils # 14.110^3/ul Neutrophils % 83.9% Nucleated Red Blood Cells # 0.010^3/ul Nucleated Red Blood Cells % 0.0/100WBC Platelet Count 45836^3/UL Potassium Level 5.1mmol/L Red Blood Count 4.2110^6/ul Red Cell Distribution Width 17.6% Sodium Level 135mmol/L Total Bilirubin 0.3mg/dl Total Protein 7.0g/dl Troponin I < 0.012ng/ml White Blood Count 16.810^3/ul Current Medications Medications (Trade) Dose Ordered Sig/Westley Route PRN Reason Start Time Stop Time Status Last Admin Dose Admin Furosemide (Lasix) 80 mg ONCE ONCE IV 05/03/16 20:30 05/03/16 20:30 DC Aspirin (Aspirin) 324 mg ONCE ONCE PO 05/03/16 20:30 05/03/16 20:31 DC 05/03/16 20:23 Enalaprilat (Vasotec Iv) 1.25 mg ONCE ONCE IV 05/03/16 20:30 05/03/16 20:30 DC Lorazepam (Ativan) 0.5 mg ONCE ONCE IV 05/03/16 20:30 05/03/16 20:31 DC 05/03/16 20:23 Albuterol (Proventil 0.5% (Neb)) 10 mg ONCE STAT INH 05/03/16 20:09 05/03/16 20:10 DC 05/03/16 21:02 Methylprednisolone Sodium Succinate (Solu-Medrol) 125 mg ONCE STAT IV 05/03/16 20:09 05/03/16 20:10 DC 05/03/16 20:23 Furosemide 60 mg 60 mg ONCE ONCE IV 05/03/16 21:30 05/03/16 21:31 DC 05/03/16 21:16 Ceftriaxone Sodium 50 ml @ 100 mls/hr ONCE ONCE IVPB 05/03/16 21:30 05/03/16 21:59 Azithromycin (Zithromax 500mg/ NS (Pmx)) 250 ml @ 250 mls/hr ONCE ONCE IVPB 05/03/16 21:30 05/03/16 22:29 Procedures/MDM IV line was established patient was placed on gambling monitor rhythm strip revealed a narrow complex tachycardia at about 110 bpm with upright P and T waves. Patient was afebrile. Blood cultures were ordered results are pending I will follow-up. EKG performed, read by me revealed an atrial fibrillation rate controlled at 99 bpm, normal axis, right bundle branch block with a QRS duration of 120 ms, no concerning ST elevations or depressions noted. One view chest x-ray performed, read by me revealed cardiomegaly and a large left sided parapneumonic effusion, no pneumothorax, no end of the diaphragm. Suspicion is for early pneumonia. Given the patient's tachypnea and respiratory symptoms I initially ordered BiPAP although patient refused. I administer lorazepam 0.5 mg IV, patient still refused BiPAP which was my recommendation. I administered albuterol 10 mg via nebulizer, methylprednisolone 125 mg IV, aspirin 324 mg p.o., and furosemide 60 mg IV 1 CBC reveals a leukocytosis of 17, electrolytes were unremarkable, liver function tests were normal, troponin was negative. BNP elevated at over 2000. I suspect an infectious parapneumonic effusion as well as decompensated heart failure and treated her here with ceftriaxone 1 g IV and azithromycin 500 mg IV , I feel she will benefit from BiPAP although she refuses. Critical Care: Time: 37 minutes, this was time separate from other procedures. Treatments/Evaluations: Close monitoring and treatment of unstable vital signs, cardiorespiratory, and neurologic status, while maintaining tight balance of fluid, respiratory, and cardiac interventions. Patient will be admitted to telemetry setting. Departure Diagnosis: Primary Impression: Pneumonia Qualified Code: J18.9 - Pneumonia of left lower lobe due to infectious organism Additional Impressions: CHF (congestive heart failure) Qualified Code: I50.31 - Acute diastolic congestive heart failure COPD (chronic obstructive pulmonary disease) Qualified Code: J44.1 - Chronic obstructive pulmonary disease with acute exacerbation Atrial fibrillation Qualified Code: I48.1 - Persistent atrial fibrillation Condition: LEXI Jones MD May 03, 2016 22:03
[2016-05-04] VITALS (13 sets, daily range): BP systolic 109–136; BP diastolic 51–82; PULSE 77–138; RESP 17–20
[2016-05-04] MEDS ORDERED: ONDANSETRON 4 MG INJ IV PRN (01:30)
[2016-05-04] MEDS ORDERED: IPRATROPIUM (NEB) 0.5 MG/2.5 ML AMP HHN PRN (01:30)
[2016-05-04] MEDS ORDERED: **FLU VACCINE PREVIOUSLY DISPENSED XX PRN (03:30)
[2016-05-04] MEDS: LEVALBUTEROL (NEB) 1.25 MG/0.5 ML AMP HHN SCH ×5 (04:20→21:32)
[2016-05-04] MEDS: LEVOFLOXACIN 500MG/D5W (PMX) 100 ML IVPB SCH (05:54)
[2016-05-04] MEDS ORDERED: BUMETANIDE 1 MG TAB PO SCH (06:00)
[2016-05-04 07:27] LABS: BASOPHILS % 0.2 % (0.0-2.0); HEMATOCRIT 37.2 % (37.0-47.0); HEMOGLOBIN 11.9 g/dl (12.0-16.0); LYMPHOCYTES # 0.6 10^3/ul (0.8-2.9); LYMPHOCYTES % 4.1 % (15.0-51.0); MEAN CORPUSCULAR HEMOGLOBIN 28.5 pg (29.0-33.0); MEAN CORPUSCULAR HGB CONC 32.1 g/dl (32.0-37.0); MEAN CORPUSCULAR VOLUME 88.8 fl (82.0-101.0); MEAN PLATELET VOLUME 8.7 fl (7.4-10.4); MONOCYTE # 0.1 10^3/ul (0.3-0.9); NEUTROPHIL # 13.6 10^3/ul (1.6-7.5); NEUTROPHILS % 94.7 % (39.0-77.0); PLATELET COUNT 246 10^3/UL (140-440); RED BLOOD COUNT 4.19 10^6/ul (4.20-5.40); RED CELL DISTRIBUTION WIDTH 17.2 % (11.5-14.5); UNCORRECTED WBC 14.3 10^3/ul (4.8-10.8); WHITE BLOOD COUNT 14.3 10^3/ul (4.8-10.8)
[2016-05-04 07:32] LABS: CONDITION 1; LH ANALYZER COMMENTS 1
[2016-05-04 07:54] LABS: ALBUMIN 3.7 g/dl (3.3-4.9)
[2016-05-04 07:55] LABS: POTASSIUM 5.1 mmol/L (3.5-5.1)
[2016-05-04 07:57] LABS: CREATININE 0.79 mg/dl (0.44-1.00); TOTAL PROTEIN 7.4 g/dl (6.1-8.1)
[2016-05-04 07:58] LABS: CALCIUM 8.8 mg/dl (8.4-10.2); CHOL/HDL RATIO 7.9 RATIO
[2016-05-04 08:13] LABS: THYROID STIMULATING HORMONE 0.355 MIU/L (0.465-4.680)
--- NOTE | 2016-05-04 08:46 | HP ---
DATE OF ADMISSION: 05/03/2016 TIME SEEN: 2300 CHIEF COMPLAINT: Shortness of breath and cough. HISTORY OF PRESENT ILLNESS: The patient is a 65-year-old female with a history of diastolic CHF, CO PD on home oxygen, diabetes, AFib, and medication/treatment nonadherence who presented to the emerge ncy department with shortness of breath and cough. The patient had been admitted here multiple time s for similar symptoms and she was actually discharged about 6 weeks ago after she presented with sh ortness of breath. The patient uses oxygen at home, but she said over the past 3 days, her shortnes s of breath was progressively getting worse and the oxygen and her albuterol one has not been effect janessa, and as such, she came here for evaluation. She denied any chest pain, nausea, vomiting, fever, or chills. When she presented to the ER, she was hypoxic with oxygen saturation of 89% and tachypneic with resp iratory rate of 24. Her temperature was 99.7. White count is almost 17,000. Chloride 86, bicarbon ate 37, glucose 318, alkaline phosphatase 443, BNP 2150. Chest x-ray shows increased cardiomegaly a nd vascular congestion. The patient received 125 mg of IV Solu-Medrol, Lasix 80 mg IV x1, and admit zacarias for further evaluation. REVIEW OF SYSTEMS: A 12-point review was performed and is negative except as mentioned in the HPI. PAST MEDICAL HISTORY: As per HPI. PAST SURGICAL HISTORY: Hysterectomy, tubal ligation, hernia repair. SOCIAL HISTORY: Drinks alcohol occasionally. Denied a history of illicit drug use. She stopped sm oking over 30 years ago. ALLERGIES: NO KNOWN DRUG ALLERGIES. HOME MEDICATION: 1. Eliquis. 2. Lipitor. 3. Digoxin. 4. Cardizem. 5. Lopressor. 6. Aldactone. 7. Bumex. 8. Potassium 9. Glimepiride. PHYSICAL EXAMINATION: VITAL SIGNS: Blood pressure 117/79, heart rate 109, respiratory rate 17, temperature earlier was 99 .7, oxygen saturation 99% on 4 L. GENERAL: The patient lying in bed, showing some respiratory distress. HEENT: No obvious head deformity. Pupils are reactive to light. Extraocular muscles intact. CARDIOVASCULAR: Tachycardic with regular rhythm. LUNGS: Slightly decreased breath sounds at the bases with minimal scattered wheezing. CARDIOVASCULAR: Irregularly irregular with a systolic murmur. ABDOMEN: Soft, obese, nontender, nondistended. EXTREMITIES: Positive for edema. LABORATORY: Pertinent positive are as mentioned in the HPI. IMAGING: Chest x-ray shows increased cardiomegaly and vascular congestion. IMPRESSION: 1. Hypercapnic and hypoxic respiratory failure. 2. Chronic obstructive pulmonary disease exacerbation. 3. Possible diastolic congestive heart failure exacerbation. 4. Diabetes with hyperglycemia. 5. Atrial fibrillation. 6. Systemic inflammatory response syndrome with leukocytosis and tachycardia, with no identifiable source of infection at this point. PLAN: The patient will be continued to be monitored in the telemetry unit. She will be continued w ith her home medication including diuresis. Strict ins and outs. We will monitor her urine output. The patient had an echocardiogram not long ago that showed an EF of 55% with stage I diastolic dys function. It is possible that there may be a component of medication noncompliance here, so for regan t reason, I will continue her with her home dose of Bumex to see whether or not she is improved, lorena n though she did receive a high dose of IV Lasix in the ER. She will be on insulin for diabetes and will adjust as needed. Again, will continue her home medications including her Eliquis for AFib. Given her presentation of SIRS, will do infectious workup. I do not see any steroids included in he r home medications, so at this point cannot attribute leukocytosis to the steroids, so will do some infectious workup. She will be placed on oxygen, bronchodilators, and steroids. We will place a pulmonary consult as n eeded. Further workup and management per clinical course. Dictated By: DWAYNE CRUZ/KIKE Conf#: [id number] DID#: [id number]
[2016-05-04] MEDS: IPRATROPIUM (NEB) 0.5 MG/2.5 ML AMP HHN SCH ×4 (08:57→21:32)
[2016-05-04] MEDS: POTASSIUM CHLORIDE 20 MEQ POWDER FOR ORAL SOLN PO SCH ×2 (09:00→09:14)
[2016-05-04] MEDS: DILTIAZEM (CD) 240 MG CAP PO SCH ×2 (09:00→12:23)
[2016-05-04] MEDS: SPIRONOLACTONE 25 MG TAB PO SCH (09:13)
[2016-05-04] MEDS: METOPROLOL 25 MG TAB PO SCH (09:13)
[2016-05-04] MEDS: APIXABAN 5 MG TABLET PO SCH ×2 (09:13→20:40)
--- NOTE | 2016-05-04 11:14 | PN ---
Date/Time of Note Date/Time of Note DATE: 05/04/16 TIME: 11:07 Assessment/Plan VTE Prophylaxis VTE Prophylaxis Intervention: other (pt is on eliquis ) Lines/Catheters IV Catheter Type (from [facility], [place]): Saline Lock Urinary Cath still in place: No Assessment/Plan Assessment/Plan 1. Hypercapnic and hypoxic respiratory failure. 2. Chronic obstructive pulmonary disease exacerbation. 3. Possible diastolic congestive heart failure exacerbation. 4. Diabetes with hyperglycemia. 5. Atrial fibrillation. 6. Systemic inflammatory response syndrome with leukocytosis and tachycardia, with no identifiable source of infection at this point. PLAN: IV levaquin breathing treatment Bumex PO- will change it to IV bumex Pulmonary consult vadfabiolanm to see pt, ABG stat to follow up on PCO2 accucheck AC and HS with Sliding scale, lantus 8 units x 1, change to diabetic diet Eliquis for anticoagulation Exam/Review of Systems Vital Signs Vitals Vital Signs Date Time Temp Pulse Resp B/P Pulse Ox O2 Delivery O2 Flow Rate FiO2 05/04/16 08:57 6.0 05/04/16 08:57 88 26 90 Nasal Cannula 05/04/16 08:05 98.4 127/82 Intake and Output 05/03/16 05/03/16 05/04/16 14:59 22:59 06:59 Intake Total 550 ml Output Total 1000 ml Balance -450 ml Exam GENERAL: The patient lying in bed, showing some respiratory distress. HEENT: No obvious head deformity. Pupils are reactive to light. Extraocular muscles intact. CARDIOVASCULAR: Tachycardic with regular rhythm. LUNGS: Slightly decreased breath sounds at the bases with minimal scattered wheezing. CARDIOVASCULAR: Irregularly irregular with a systolic murmur. ABDOMEN: Soft, obese, nontender, nondistended. EXTREMITIES: Positive for edema. Results Result Diagram: 05/04/16 0608 05/04/16 0608 Results 24 hrs Laboratory Tests Test 05/03/16 20:08 05/03/16 20:20 05/04/16 06:08 Arterial Blood HCO3 37.0 H Arterial Blood Base Excess 9.4 H Arterial Blood Oxygen Saturation 90.4 L Joseph Test N/A Arterial Blood Gas Puncture Site Right Brachial Arterial Blood Carboxyhemoglobin 0.7 Arterial Blood Date Drawn 05/03/2016 10:00:10 PM Arterial Blood Methemoglobin 0.2 Arterial Blood pCO2 (Temp correct) 65.4 H Arterial Blood pH (Temp corrected) 7.371 Arterial Blood pO2 (Temp corrected) 60.9 L Blood Gas A-a O2 Differential 119.9 H Blood Gas Modality NASAL CANNULA Blood Gas Notified Time 05/03/2016 10:03:38 PM Blood Gas Notified Whom MG Blood Gas Specimen Source Blood arterial Blood Gas Temperature 37.0 FiO2 36.0 Oxyhemoglobin Percent 89.6 L Total Hemoglobin 12.9 Alanine Aminotransferase (ALT/SGPT) 55 55 Albumin 3.5 3.7 Albumin/Globulin Ratio 1.00 1.00 Alkaline Phosphatase 443 H 429 H Anion Gap 17 H 17 H Aspartate Amino Transf (AST/SGOT) 56 H 42 B-Type Natriuretic Peptide 2150 H Basophils # 0.0 0.0 Basophils % 0.3 0.2 Blood Morphology Comment Blood Urea Nitrogen 14 16 Calcium Level 9.0 8.8 Carbon Dioxide Level 37 H 37 H Chloride Level 86 L 86 L Creatinine 0.71 0.79 Direct Bilirubin 0.00 0.00 Eosinophils # 0.0 0.0 Eosinophils % 0.0 0.0 Globulin 3.50 H 3.70 H Glucose Level 318 H 474 #*H Hematocrit 37.1 37.2 Hemoglobin 11.9 L 11.9 L Indirect Bilirubin 0.3 0.0 Lipase 136 Lymphocytes # 1.6 0.6 L Lymphocytes % 9.6 L 4.1 L Mean Corpuscular Hemoglobin 28.3 L 28.5 L Mean Corpuscular Hemoglobin Concent 32.2 32.1 Mean Corpuscular Volume 88.0 88.8 Mean Platelet Volume 8.3 8.7 Monocytes # 1.0 H 0.1 L Monocytes % 6.2 1.0 Neutrophils # 14.1 H 13.6 H Neutrophils % 83.9 H 94.7 H Nucleated Red Blood Cells # 0.0 0.0 Nucleated Red Blood Cells % 0.0 0.0 Platelet Count 280 246 Potassium Level 5.1 5.1 Red Blood Count 4.21 4.19 L Red Cell Distribution Width 17.6 H 17.2 H Sodium Level 135 135 Total Bilirubin 0.3 0.0 L Total Protein 7.0 7.4 Troponin I < 0.012 White Blood Count 16.8 #H 14.3 H Cholesterol Level 191 Cholesterol/HDL Ratio 7.9 HDL Cholesterol 24 L Hemoglobin A1c 8.4 H LDL Cholesterol, Calculated 143 Thyroid Stimulating Hormone (TSH) 0.355 L Triglycerides Level 122 Medications Medications Current Medications Levofloxacin/ Dextrose (Levaquin 500mg/ D5W 100 ml (Pmx)) 100 ml @ 100 mls/hr Q24H IVPB Last administered on 05/04/16 05:54; Admin Dose 100 MLS/HR; Start at 06:00 Ondansetron HCl (Zofran Inj) 4 mg Q4H PRN IV NAUSEA AND/OR VOMITING; Start at 01:30 Apixaban (Eliquis) 5 mg BID PO Last administered on 05/04/16 09:13; Admin Dose 5 MG; Start 05/04/16 at 09:00 Atorvastatin Calcium (Lipitor) 40 mg HS PO ; Start 05/04/16 at 21:00 Bumetanide (Bumex) 1 mg DAILY@06 PO Last administered on 05/04/16 05:54; Admin Dose 1 MG; Start 05/04/16 at 06:00 Digoxin (Digoxin) 0.25 mg DAILY@13 PO ; Start 05/04/16 at 13:00 Diltiazem HCl (Cardizem Cd) 240 mg DAILY PO ; Start 05/04/16 at 09:00 Metoprolol Tartrate (Lopressor) 25 mg DAILY PO Last administered on 05/04/16 09:13; Admin Dose 25 MG; Start 05/04/16 at 09:00 Potassium Chloride (Potassium Chloride Pwd/Soln) 40 meq DAILY PO ; Start at 09:00 Spironolactone (Aldactone) 25 mg DAILY PO Last administered on 05/04/16 09:13 ; Admin Dose 25 MG; Start 05/04/16 at 09:00 Miscellaneous Information (Flu Vaccine Previously Dispensed) FLU VACCINE PREVIOU... NOTE PRN XX NOTE; Start 05/04/16 at 03:30 MARIBEL COLORADO MD May 04, 2016 11:14
[2016-05-04] MEDS: ACCUCHECK XX SCH ×3 (11:30→21:45)
[2016-05-04] MEDS ORDERED: INSULIN GLARGINE [LANtus] 3 ML PEN SC ONE ×2 (12:00→12:30)
[2016-05-04 12:12] LABS: AADO2 Arterial 103.7 mmHg (7.0-24.0); Allen Test ACCEPTAB; Arterial Base Excess 6.5 mmol/L (-3.0-3); Arterial COHb 0.6 % (0.0-3.0); Arterial Fraction of Oxyhgb 94.9 % (93.0-99.0); Arterial HCO3 31.7 mmol/L (22.0-26.0); Arterial MetHb 0.3 % (0.0-1.5); Arterial Total Hemglobin 11.6 g/dl (12.0-18.0); MODE NASAL CANNULA
[2016-05-04] MEDS: INSULIN ASPART [NOVOLOG] 3 ML PEN SC SCH ×4 (12:31→20:41)
[2016-05-04] MEDS: DIGOXIN 0.25 MG TAB PO SCH (12:48)
[2016-05-04] MEDS ORDERED: DEXTROSE 50% 50 ML SYRINGE IV PRN ×2 (13:00)
[2016-05-04] MEDS ORDERED: GLUCOSE GEL 15 GRAM TUBE BUCCAL PRN (13:00)
[2016-05-04] MEDS ORDERED: GLUCOSE GEL 15 GRAM TUBE PO PRN ×2 (13:00)
[2016-05-04] MEDS ORDERED: GLUCAGON 1 MG INJ IM PRN (13:00)
[2016-05-04] MEDS ORDERED: INSULIN ASPART [NOVOLOG] 3 ML PEN SC ONE ×2 (16:00→21:00)
[2016-05-04] MEDS: ATORVASTATIN 40 MG TAB PO SCH (20:40)
[2016-05-04] MEDS: INSULIN GLARGINE [LANtus] 3 ML PEN SC SCH (20:48)
[2016-05-05] VITALS (10 sets, daily range): BP systolic 106–139; BP diastolic 57–78; PULSE 77–101; RESP 16–18
[2016-05-05] MEDS: LEVALBUTEROL (NEB) 1.25 MG/0.5 ML AMP HHN SCH ×6 (00:23→21:10)
[2016-05-05] MEDS: IPRATROPIUM (NEB) 0.5 MG/2.5 ML AMP HHN SCH ×6 (00:23→21:10)
[2016-05-05] MEDS: ACCUCHECK XX SCH ×5 (02:56→20:16)
[2016-05-05] MEDS: LEVOFLOXACIN 500MG/D5W (PMX) 100 ML IVPB SCH (06:47)
[2016-05-05 08:17] LABS: BASOPHILS % 0.2 % (0.0-2.0); HEMATOCRIT 35.9 % (37.0-47.0); HEMOGLOBIN 11.3 g/dl (12.0-16.0); LYMPHOCYTES # 1.6 10^3/ul (0.8-2.9); LYMPHOCYTES % 11.8 % (15.0-51.0); MEAN CORPUSCULAR HEMOGLOBIN 27.9 pg (29.0-33.0); MEAN CORPUSCULAR HGB CONC 31.5 g/dl (32.0-37.0); MEAN CORPUSCULAR VOLUME 88.6 fl (82.0-101.0); MEAN PLATELET VOLUME 8.4 fl (7.4-10.4); MONOCYTE # 0.7 10^3/ul (0.3-0.9); MONOCYTES % 4.9 % (0.0-11.0); NEUTROPHIL # 11.5 10^3/ul (1.6-7.5); NEUTROPHILS % 83.1 % (39.0-77.0); PLATELET COUNT 280 10^3/UL (140-440); RED BLOOD COUNT 4.05 10^6/ul (4.20-5.40); RED CELL DISTRIBUTION WIDTH 17.6 % (11.5-14.5); UNCORRECTED WBC 13.9 10^3/ul (4.8-10.8); WHITE BLOOD COUNT 13.9 10^3/ul (4.8-10.8)
[2016-05-05 08:20] LABS: CONDITION 1; LH ANALYZER COMMENTS 1
[2016-05-05 08:29] LABS: INR 1.14; PROTIME 14.6 Sec (12.2-14.2); PT RATIO 1.1
[2016-05-05 08:30] LABS: ALBUMIN 3.4 g/dl (3.3-4.9); PARTIAL THROMBOPLASTIN TIME 35.8 Sec (25.0-35.0)
[2016-05-05 08:31] LABS: POTASSIUM 4.5 mmol/L (3.5-5.1)
[2016-05-05 08:33] LABS: CREATININE 0.7 mg/dl (0.44-1.00); TOTAL PROTEIN 6.8 g/dl (6.1-8.1)
[2016-05-05 08:34] LABS: CALCIUM 8.7 mg/dl (8.4-10.2)
[2016-05-05] MEDS: INSULIN ASPART [NOVOLOG] 3 ML PEN SC SCH ×7 (09:13→20:16)
[2016-05-05] MEDS: BUMETANIDE 1 MG INJ IV SCH (09:16)
[2016-05-05] MEDS: SPIRONOLACTONE 25 MG TAB PO SCH (09:16)
[2016-05-05] MEDS: DILTIAZEM (CD) 240 MG CAP PO SCH (09:16)
[2016-05-05] MEDS: METOPROLOL 25 MG TAB PO SCH (09:17)
[2016-05-05] MEDS: APIXABAN 5 MG TABLET PO SCH ×2 (09:17→20:14)
--- NOTE | 2016-05-05 12:31 | CONS ---
DATE OF ADMISSION: 05/03/2016 DATE OF CONSULTATION: 05/05/2016 TYPE OF CONSULTATION:. Pulmonary. REASON FOR CONSULTATION: Shortness of breath. Thank you, Dr. Salcido, for this consultation. HISTORY OF PRESENT ILLNESS: This is a 65-year-old lady well known to me with a history of chronic h ypoxemia and underlying COPD, mild pulmonary hypertension and congestive cardiac failure, admitted w ith increasing shortness of breath, orthopnea, PND and significant hypoxemia. She is normally on 4 liters O2. She denies any cough. No fever, no chills, just worsening exertional dyspnea. PAST MEDICAL HISTORY: As above. MEDICATIONS: Per chart. ALLERGIES: NONE. SOCIAL HISTORY: Nonsmoker, no alcohol, no history of drug use. FAMILY HISTORY: Noncontributory. SYSTEMS REVIEW: A 12-point review of systems was negative other than that mentioned above. PHYSICAL EXAMINATION: GENERAL: Well-nourished, well-developed lady, comfortable at rest, no acute distress. VITAL SIGNS: Currently afebrile, pulse is 97, blood pressure 130/76, O2 saturation 92% on 4 L nasal cannula. NECK: Supple. No JVD or lymphadenopathy. CARDIAC: S1, S2, no added sounds or murmurs. CHEST: Diminished air entry bilaterally. ABDOMEN: Soft, nontender. No guarding or rebound. EXTREMITIES: No cyanosis, clubbing, 1+ edema. NEUROLOGIC: Grossly intact. No focal deficits. LABORATORY DATA: White count 13.9, hemoglobin 11.3, platelets 280. BUN 26, creatinine 0.7. BNP on admission was 2150. DIAGNOSTIC DATA: Chest x-ray was reviewed, showed increased vascular congestion. IMPRESSION AND PLAN: 1. Acute on chronic hypoxemic respiratory failure, likely secondary to worsening congestive cardiac failure. 2. Chronic hypoxemic respiratory failure with underlying chronic obstructive pulmonary disease. 3. Chest x-ray shows possible new left pleural effusion. The patient will require CT of the chest. 1. Continue steroids. 2. Continue Lasix. 3. If large pleural effusion present, she will require thoracentesis. Dictated By: OSMANI MARX/KIKE Conf#: [id number] DID#: [id number]
[2016-05-05] MEDS: DIGOXIN 0.25 MG TAB PO SCH (13:45)
--- NOTE | 2016-05-05 14:06 | CONS ---
DATE OF ADMISSION: 05/03/2016 DATE OF CONSULTATION: 05/05/2016 NEPHROLOGY CONSULTATION REFERRING PHYSICIAN: Hilario San MD REASON FOR CONSULTATION: Hyperkalemia, severe metabolic alkalosis with uncontrolled diabetes causin g prerenal azotemia. HISTORY OF PRESENT ILLNESS: This is a 65-year-old female with a past medical history of CHF, atrial fibrillation on anticoagulation with Eliquis, COPD, history of previous smoking. The patient prese nted this time with a complaint of shortness of breath and cough, that she gets admitted for hyperca pnic and hypoxic respiratory failure. She is noted to have a metabolic alkalosis with a bicarbonate level of 39. She is also hypochloremic with a potassium borderline high of 5.1 to 5.3. The patien t has been on multiple medications for her CHF and COPD. Renal has been consulted for electrolyte m onitoring and the metabolic alkalosis. Currently she is on IV Levaquin for possible pneumonia cover age. REVIEW OF SYSTEMS: Shortness of breath, cough and lower extremity edema. Other 12-point review of systems has been obtained and is negative except what is mentioned in the history of present illness . PAST MEDICAL HISTORY: Notable for atrial fibrillation, CHF, COPD, history of smoking, possible low level proteinuric chronic kidney disease secondary to diabetic nephropathy, diabetes mellitus. PAST SURGICAL HISTORY: Total hysterectomy, tubal ligation, hernia repair, right breast biopsy. SOCIAL HISTORY: The patient previously was smoking. She stopped smoking 30 years ago, occasionally uses alcohol, no recreational drug use. FAMILY HISTORY: Not available. PHYSICAL EXAMINATION: VITAL SIGNS: Temperature 97.7, heart rate 102, respirations 16, blood pressure 130/76, saturation i s 90% on 4 liters nasal cannula. GENERAL: Awake, alert, in moderate distress due to the hypoxia. NECK: Supple, no JVD. LUNGS: Mild decreased breath sounds at both lung bases. Minimal expiratory wheezing present. Biba silar rales. HEART: S1, S2, tachycardia. ABDOMEN: Soft, morbidly obese. EXTREMITIES: 1+ pitting edema. NEUROLOGICAL: Nonfocal, intact. PSYCHIATRIC: Appropriate affect and mood. LABORATORY DATA/DIAGNOSTIC IMAGING: Sodium 138, potassium 4.5, chloride 90, bicarbonate 39, BUN 26, creatinine 0.7, glucose 152, calcium 8.7. LFTs are normal. Alkaline phosphatase 327. PT 14.6, PT T 35.8. Potassium has been running from .5 to 5.1. Bicarbonate has been running from 37 to 42 . IMPRESSION: This is a 65-year-old female with: 1. Hypercapnic and hypoxic respiratory failure secondary to a combination of congestive heart failu re and chronic obstructive pulmonary disease. 2. Severe metabolic alkalosis with possible diastolic heart failure. 3. Diabetes with hyperglycemia. 4. Atrial fibrillation on anticoagulation with Eliquis. 5. Systemic inflammatory response syndrome with leukocytosis and tachycardia. Thank you, Dr. Walters, for this consultation. I will change the patient's Bumex to IV due to mor e diuresis. We will continue to monitor her electrolytes and especially bicarbonate level. ABG has been repeated which shows improvement in her pCO2 from 65 to 48 yesterday. We will continue to mon itor this patient along with the primary care service. The patient currently seen in the telemetry floor and then she will be followed up along with the primary care service. Dictated By: MARIBEL COLORADO MD, KP/KIKE Conf#: [id number] DID#: [id number]
--- NOTE | 2016-05-05 16:30 | PN ---
Date/Time of Note Date/Time of Note DATE: 05/05/16 TIME: 16:25 Assessment/Plan VTE Prophylaxis VTE Prophylaxis Intervention: heparin Lines/Catheters [facility] Saline Lock Urinary Cath still in place: No Assessment/Plan Chief Complaint/Hosp Course Assessment/Plan 1. Hypercapnic and hypoxic respiratory failure. Program Instructor has been consulted, continue oxygen and breathing treatment as needed 2. Chronic obstructive pulmonary disease exacerbation. As above 3. Possible diastolic congestive heart failure exacerbation. Continue diuretics/Bumex 4. Diabetes with hyperglycemia. Continue insulin, insulin sliding scale and low-carb diet 5. Atrial fibrillation. Continue Eliquis 6. Systemic inflammatory response syndrome with leukocytosis and tachycardia, with no identifiable source of infection at this point. Continue broad-spectrum IV antibiotics We will continue monitor patient closely for recommendation management treatment as clinical course Problems: Subjective 24 Hr Interval Summary Free Text/Dictation Patient denies any chest pain or shortness of breath No nausea vomiting diarrhea Exam/Review of Systems Vital Signs Vitals Vital Signs Date Time Temp Pulse Resp B/P Pulse Ox O2 Delivery O2 Flow Rate FiO2 05/05/16 15:52 97.7 90 18 114/58 93 05/05/16 14:29 Nasal Cannula 4.0 Intake and Output 05/04/16 05/04/16 05/05/16 15:00 23:00 07:00 Intake Total 100 ml 700 ml 500 ml Balance 100 ml 700 ml 500 ml Exam General: The patient is morbidly obese, Not in acute distress. HEENT: Atraumatic, normocephalic. The pupils are equal and round . Neck: Supple with full range of motion. Chest: Normal expansion of the thorax during inspiration Lungs: Increased breath sounds bilateral lower lung field Heart: Normal S1-S2, Regular rhythm and rate. Abdomen: Soft , nontender, nondistended , bowel sounds are present. Extremities: Normal to inspection, trace edema no cyanosis Neurologic: Normal mental status,The patient is awake, alert and oriented . Results Result Diagram: 05/05/16 0645 05/05/16 0645 Results 24 hrs Laboratory Tests Test 05/04/16 17:09 05/04/16 20:27 05/05/16 02:48 05/05/16 06:45 Bedside Glucose 346 H 304 H 141 Activated Partial Thromboplast Time 35.8 H Alanine Aminotransferase (ALT/SGPT) 58 Albumin 3.4 Albumin/Globulin Ratio 1.00 Alkaline Phosphatase 327 H Anion Gap 14 Aspartate Amino Transf (AST/SGOT) 45 Basophils # 0.0 Basophils % 0.2 Blood Morphology Comment Blood Urea Nitrogen 26 H Calcium Level 8.7 Carbon Dioxide Level 39 H Chloride Level 90 L Creatinine 0.70 Direct Bilirubin 0.00 Eosinophils # 0.0 Eosinophils % 0.0 Globulin 3.40 H Glucose Level 152 # Hematocrit 35.9 L Hemoglobin 11.3 L INR International Normalized Ratio 1.14 Indirect Bilirubin 0.0 Lymphocytes # 1.6 Lymphocytes % 11.8 L Mean Corpuscular Hemoglobin 27.9 L Mean Corpuscular Hemoglobin Concent 31.5 L Mean Corpuscular Volume 88.6 Mean Platelet Volume 8.4 Monocytes # 0.7 Monocytes % 4.9 Neutrophils # 11.5 H Neutrophils % 83.1 H Nucleated Red Blood Cells # 0.0 Nucleated Red Blood Cells % 0.0 Platelet Count 280 Potassium Level 4.5 Prothrombin Time 14.6 H Prothrombin Time Ratio 1.1 Red Blood Count 4.05 L Red Cell Distribution Width 17.6 H Sodium Level 138 Total Bilirubin 0.0 L Total Protein 6.8 White Blood Count 13.9 H Test 05/05/16 07:56 05/05/16 11:41 Bedside Glucose 183 263 H Medications Medications Current Medications Levofloxacin/ Dextrose (Levaquin 500mg/ D5W 100 ml (Pmx)) 100 ml @ 100 mls/hr Q24H IVPB Last administered on 05/05/16 06:47; Admin Dose 100 MLS/HR; Start at 06:00 Ondansetron HCl (Zofran Inj) 4 mg Q4H PRN IV NAUSEA AND/OR VOMITING; Start at 01:30 Apixaban (Eliquis) 5 mg BID PO Last administered on 05/05/16 09:17; Admin Dose 5 MG; Start 05/04/16 at 09:00 Atorvastatin Calcium (Lipitor) 40 mg HS PO Last administered on 05/04/16 20:40 ; Admin Dose 40 MG; Start 05/04/16 at 21:00 Digoxin (Digoxin) 0.25 mg DAILY@13 PO Last administered on 05/05/16 13:45; Admin Dose 0.25 MG; Start 05/04/16 at 13:00 Diltiazem HCl (Cardizem Cd) 240 mg DAILY PO Last administered on 05/05/16 09: 16; Admin Dose 240 MG; Start 05/04/16 at 09:00 Metoprolol Tartrate (Lopressor) 25 mg DAILY PO Last administered on 05/05/16 09:17; Admin Dose 25 MG; Start 05/04/16 at 09:00 Spironolactone (Aldactone) 25 mg DAILY PO Last administered on 05/05/16 09:16 ; Admin Dose 25 MG; Start 05/04/16 at 09:00 Miscellaneous Information (Flu Vaccine Previously Dispensed) FLU VACCINE PREVIOU... NOTE PRN XX NOTE; Start 05/04/16 at 03:30 Bumetanide (Bumex) 1 mg DAILY IV Last administered on 05/05/16 09:16; Admin Dose 1 MG; Start 05/05/16 at 09:00 Diagnostic Test (Pha) (Accucheck) 1 ea 02 XX Last administered on 05/05/16 02: 56; Admin Dose 1 EA; Start 05/05/16 at 02:00 Diagnostic Test (Pha) (Accucheck) 1 ea IACHS XX Last administered on 05/05/16 11:30; Admin Dose 1 EA; Start 05/04/16 at 11:30 Miscellaneous Information 1 ea NOTE XX ; Start 05/04/16 at 13:00 Glucose (Glutose) 15 gm Q15M PRN PO DECREASED GLUCOSE; Start 05/04/16 at 13:00 Glucose (Glutose) 22.5 gm Q15M PRN PO DECREASED GLUCOSE; Start 05/04/16 at 13: 00 Dextrose (D50w Syringe) 25 ml Q15M PRN IV DECREASED GLUCOSE; Start 05/04/16 at 13:00 Dextrose (D50w Syringe) 50 ml Q15M PRN IV DECREASED GLUCOSE; Start 05/04/16 at 13:00 Glucagon (Glucagen) 1 mg Q15M PRN IM DECREASED GLUCOSE; Start 05/04/16 at 13:00 Glucose (Glutose) 15 gm Q15M PRN BUCCAL DECREASED GLUCOSE; Start 05/04/16 at 13 :00 Insulin Glargine (Lantus) 15 unit QHS SC Last administered on 05/04/16 20:48; Admin Dose 15 UNIT; Start 05/04/16 at 21:00 YENNIFER CALABRESE MD May 05, 2016 16:30
--- NOTE | 2016-05-05 18:29 | RADRPT ---
PROCEDURE: CT Chest. CLINICAL INDICATION: Dyspnea and shortness of breath TECHNIQUE: CT scan of the chest without contrast was performed on the [employer] volumetric [address] [facility] without contrast. Coronal and sagittal reformatted images were obtained from the axial source images. The CTDI vol is 16.59 mGy and the DLP is 661.05 mGy-cm. COMPARISON: 03/06/2016 FINDINGS: A small right pleural effusion is seen. Mild to moderate left pleural effusion is noted. Consolida tion in the left lower lobe is once again seen with volume loss. The mediastinum and hilum are unre markable without evidence for mass or lymphadenopathy. Aortic and coronary vascular calcifications are seen. The vascular structures of the mediastinum otherwise unremarkable in course and caliber. The heart size is moderately enlarged with multichamber enlargement and is without evidence for amanda cardial thickening or effusion. The axillary regions, subpectoral regions, and supraclavicular kelsea ons are all unremarkable. Left adrenal thickening is once again seen with a left adrenal nodule martin uring 1.6 cm in size and is again noted. Imaging obtained through the upper abdomen reveals no acute abnormality. Degenerative spondylosis of the thoracic spine is seen. No osteolytic or osteoblasti c lesion is detected. Bilateral thyroid nodules are once again seen. IMPRESSION: 1. Small right pleural effusion and mild to moderate left pleural effusion with left lower lobe con solidation which is persistent. The possibility of an endobronchial lesion cannot be excluded. Con quartz cutter further evaluation with bronchoscopy as clinically warranted. 2. Moderate cardiomegaly with multichamber enlargement again seen. 3. Left adrenal thickening with a left adrenal nodule again seen which is stable. RPTAT: HPNM Physician [place] Date Time Electronically viewed and signed by Physician [place] on 05/05/2016 18:29 /
[2016-05-05] MEDS: ATORVASTATIN 40 MG TAB PO SCH (20:14)
[2016-05-05] MEDS: INSULIN GLARGINE [LANtus] 3 ML PEN SC SCH (20:17)
[2016-05-06] VITALS (13 sets, daily range): BP systolic 98–129; BP diastolic 58–76; PULSE 67–95; RESP 18–20
[2016-05-06] MEDS: IPRATROPIUM (NEB) 0.5 MG/2.5 ML AMP HHN SCH ×6 (00:54→21:09)
[2016-05-06] MEDS: LEVALBUTEROL (NEB) 1.25 MG/0.5 ML AMP HHN SCH ×6 (00:54→21:09)
[2016-05-06] MEDS: ACCUCHECK XX SCH ×5 (02:55→21:08)
[2016-05-06] MEDS: LEVOFLOXACIN 500MG/D5W (PMX) 100 ML IVPB SCH (06:29)
[2016-05-06 08:04] LABS: POTASSIUM 4.5 mmol/L (3.5-5.1)
[2016-05-06 08:07] LABS: CREATININE 0.82 mg/dl (0.44-1.00)
[2016-05-06 08:08] LABS: CALCIUM 8.8 mg/dl (8.4-10.2)
[2016-05-06 08:10] LABS: BASOPHILS % 0.2 % (0.0-2.0); EOSINOPHILS % 0.4 % (0.0-7.0); HEMOGLOBIN 12.1 g/dl (12.0-16.0); LYMPHOCYTES # 2.9 10^3/ul (0.8-2.9); LYMPHOCYTES % 25.3 % (15.0-51.0); MEAN CORPUSCULAR HEMOGLOBIN 28.1 pg (29.0-33.0); MEAN CORPUSCULAR HGB CONC 31.9 g/dl (32.0-37.0); MEAN CORPUSCULAR VOLUME 87.8 fl (82.0-101.0); MEAN PLATELET VOLUME 8.3 fl (7.4-10.4); MONOCYTE # 0.6 10^3/ul (0.3-0.9); MONOCYTES % 5.4 % (0.0-11.0); NEUTROPHIL # 7.9 10^3/ul (1.6-7.5); NEUTROPHILS % 68.7 % (39.0-77.0); PLATELET COUNT 322 10^3/UL (140-440); RED BLOOD COUNT 4.32 10^6/ul (4.20-5.40); RED CELL DISTRIBUTION WIDTH 17.5 % (11.5-14.5); UNCORRECTED WBC 11.4 10^3/ul (4.8-10.8); WHITE BLOOD COUNT 11.4 10^3/ul (4.8-10.8)
[2016-05-06 08:24] LABS: CONDITION 1; LH ANALYZER COMMENTS 1
[2016-05-06] MEDS: INSULIN ASPART [NOVOLOG] 3 ML PEN SC SCH ×7 (08:39→21:03)
[2016-05-06] MEDS: APIXABAN 5 MG TABLET PO SCH ×2 (08:42→21:01)
[2016-05-06] MEDS: DILTIAZEM (CD) 240 MG CAP PO SCH (08:42)
[2016-05-06] MEDS: SPIRONOLACTONE 25 MG TAB PO SCH (08:42)
[2016-05-06] MEDS: METOPROLOL 25 MG TAB PO SCH (08:42)
[2016-05-06] MEDS: BUMETANIDE 1 MG INJ IV SCH (08:43)
--- NOTE | 2016-05-06 09:21 | CONS ---
Date/Time of Note Date/Time of Note DATE: 05/06/16 TIME: 09:15 Assessment/Plan Assessment/Plan Additional Assessment/Plan 1. Hypercapnic and hypoxic respiratory failure secondary to a combination of congestive heart failure and chronic obstructive pulmonary disease. 2. Severe metabolic alkalosis with possible diastolic heart failure. HCo3 39 yesterday, today's pending 3. Diabetes with hyperglycemia. 4. Atrial fibrillation on anticoagulation with Eliquis. 5. Systemic inflammatory response syndrome with leukocytosis and tachycardia. Plan: K micah, Cr normal will give diomax 500mg IV x 1 dose for severe metabolic alkalosis change Bumex to 1 mg po daily( pt was on Bumex 2 mg AM and 1 mg pM at home) will follow up Consultation Date/Type/Reason Admit Date/Time May 03, 2016 at 21:44 Initial Consult Date Apr Type of Consultation: NEPHROLOGY Reason for Consultation metabolic acidosis, Prerenal azotemia Referring Provider: YENNIFER CALABRESE MD 24 HR Interval Summary Free Text/Dictation remainied stable,less SOB Exam/Review of Systems Vital Signs Vitals Vital Signs Date Time Temp Pulse Resp B/P Pulse Ox O2 Delivery O2 Flow Rate FiO2 05/06/16 08:59 4.0 05/06/16 08:59 78 18 98 Nasal Cannula 05/06/16 07:45 97.9 128/67 Intake and Output 05/05/16 05/05/16 05/06/16 15:00 23:00 07:00 Intake Total 600 ml 250 ml Balance 600 ml 250 ml Exam GENERAL: Awake, alert, in moderate distress due to the hypoxia. NECK: Supple, no JVD. LUNGS: Mild decreased breath sounds at both lung bases. Minimal expiratory wheezing present. Bibasilar rales. HEART: S1, S2, tachycardia. ABDOMEN: Soft, morbidly obese. EXTREMITIES: 1+ pitting edema. NEUROLOGICAL: Nonfocal, intact. PSYCHIATRIC: Appropriate affect and mood Results Result Diagram: 05/06/16 0649 05/06/16 0649 Results 24 hrs Laboratory Tests Test 05/05/16 11:41 05/05/16 17:32 05/05/16 20:13 05/06/16 02:58 Bedside Glucose 263 H 161 280 H 248 H Test 05/06/16 06:34 05/06/16 06:49 05/06/16 07:46 Bedside Glucose 198 225 H Anion Gap 13 Basophils # 0.0 Basophils % 0.2 Blood Morphology Comment Blood Urea Nitrogen 26 H Calcium Level 8.8 Carbon Dioxide Level 41 *H Chloride Level 89 L Creatinine 0.82 Eosinophils # 0.0 Eosinophils % 0.4 Glucose Level 202 Hematocrit 38.0 Hemoglobin 12.1 Lymphocytes # 2.9 Lymphocytes % 25.3 Mean Corpuscular Hemoglobin 28.1 L Mean Corpuscular Hemoglobin Concent 31.9 L Mean Corpuscular Volume 87.8 Mean Platelet Volume 8.3 Monocytes # 0.6 Monocytes % 5.4 Neutrophils # 7.9 H Neutrophils % 68.7 Nucleated Red Blood Cells # 0.0 Nucleated Red Blood Cells % 0.0 Platelet Count 322 Potassium Level 4.5 Red Blood Count 4.32 Red Cell Distribution Width 17.5 H Sodium Level 138 White Blood Count 11.4 H Medications Medications Current Medications Levofloxacin/ Dextrose (Levaquin 500mg/ D5W 100 ml (Pmx)) 100 ml @ 100 mls/hr Q24H IVPB Last administered on 05/06/16 06:29; Admin Dose 100 MLS/HR; Start at 06:00 Ondansetron HCl (Zofran Inj) 4 mg Q4H PRN IV NAUSEA AND/OR VOMITING; Start at 01:30 Apixaban (Eliquis) 5 mg BID PO Last administered on 05/06/16 08:42; Admin Dose 5 MG; Start 05/04/16 at 09:00 Atorvastatin Calcium (Lipitor) 40 mg HS PO Last administered on 05/05/16 20:14 ; Admin Dose 40 MG; Start 05/04/16 at 21:00 Digoxin (Digoxin) 0.25 mg DAILY@13 PO Last administered on 05/05/16 13:45; Admin Dose 0.25 MG; Start 05/04/16 at 13:00 Diltiazem HCl (Cardizem Cd) 240 mg DAILY PO Last administered on 05/06/16 08: 42; Admin Dose 240 MG; Start 05/04/16 at 09:00 Metoprolol Tartrate (Lopressor) 25 mg DAILY PO Last administered on 05/06/16 08:42; Admin Dose 25 MG; Start 05/04/16 at 09:00 Spironolactone (Aldactone) 25 mg DAILY PO Last administered on 05/06/16 08:42 ; Admin Dose 25 MG; Start 05/04/16 at 09:00 Miscellaneous Information (Flu Vaccine Previously Dispensed) FLU VACCINE PREVIOU... NOTE PRN XX NOTE; Start 05/04/16 at 03:30 Bumetanide (Bumex) 1 mg DAILY IV Last administered on 05/06/16 08:43; Admin Dose 1 MG; Start 05/05/16 at 09:00 Diagnostic Test (Pha) (Accucheck) 1 ea 02 XX Last administered on 05/06/16 02: 55; Admin Dose 1 EA; Start 05/05/16 at 02:00 Diagnostic Test (Pha) (Accucheck) 1 ea IACHS XX Last administered on 05/06/16 06:29; Admin Dose 1 EA; Start 05/04/16 at 11:30 Miscellaneous Information 1 ea NOTE XX ; Start 05/04/16 at 13:00 Glucose (Glutose) 15 gm Q15M PRN PO DECREASED GLUCOSE; Start 05/04/16 at 13:00 Glucose (Glutose) 22.5 gm Q15M PRN PO DECREASED GLUCOSE; Start 05/04/16 at 13: 00 Dextrose (D50w Syringe) 25 ml Q15M PRN IV DECREASED GLUCOSE; Start 05/04/16 at 13:00 Dextrose (D50w Syringe) 50 ml Q15M PRN IV DECREASED GLUCOSE; Start 05/04/16 at 13:00 Glucagon (Glucagen) 1 mg Q15M PRN IM DECREASED GLUCOSE; Start 05/04/16 at 13:00 Glucose (Glutose) 15 gm Q15M PRN BUCCAL DECREASED GLUCOSE; Start 05/04/16 at 13 :00 Insulin Glargine (Lantus) 15 unit QHS SC Last administered on 05/05/16 20:17; Admin Dose 15 UNIT; Start 05/04/16 at 21:00 MARIBEL COLORADO MD May 06, 2016 09:21
[2016-05-06] MEDS ORDERED: ACETAZOLAMIDE 500 MG INJ IV ONE (09:30)
--- NOTE | 2016-05-06 12:11 | CONS ---
Date/Time of Note Date/Time of Note DATE: 05/06/16 TIME: 12:07 Assessment/Plan Assessment/Plan Additional Assessment/Plan CT chest was reviewed without contrast which is showing bilateral infiltrative changes in lower lobes more pronounced in the left lung. Small pleural effusions are present Assessment recommendations; 1. Patient admitted with COPD exacerbation and CHF. 2. Significant leukocytosis on admission with bilateral lower lobe pneumonia. add cefepime continue Levaquin. In a follow up chest x-ray in 48 hours. Consultation Date/Type/Reason Admit Date/Time May 03, 2016 at 21:44 Initial Consult Date Type of Consultation: Pulmonary Referring Provider: YENNIFER CALABRESE MD 24 HR Interval Summary Free Text/Dictation Patient feeling much better today. Denies any chest pain. Any coughing, wheezing, sputum production. General examination; elderly lady appears quite obese currently in no distress. Exam/Review of Systems Vital Signs Vitals Vital Signs Date Time Temp Pulse Resp B/P Pulse Ox O2 Delivery O2 Flow Rate FiO2 05/06/16 11:52 97.9 66 19 102/66 97 05/06/16 08:59 4.0 05/06/16 08:59 Nasal Cannula Intake and Output 05/05/16 05/05/16 05/06/16 15:00 23:00 07:00 Intake Total 600 ml 250 ml Balance 600 ml 250 ml Exam H EENT examination; supple neck, JVD difficult to see because of short neck. Pharynx is clear. Patient has a multiple missing teeth. Pupils are midsize and reactive to light. No thyromegaly. Chest examination; diminished breath sounds throughout. S1-S2 audible, regular rhythm. No murmurs. Abdomen examination; protuberant, nontender. Bowel sounds audible. Extremity examination; trace pitting edema in lower extremities bilaterally. REGISTERED PHYSICAL THERAPIST examination; no focal deficit. Results Result Diagram: 05/06/16 0649 05/06/16 0649 Results 24 hrs Laboratory Tests Test 05/05/16 17:32 05/05/16 20:13 05/06/16 02:58 05/06/16 06:34 Bedside Glucose 161 280 H 248 H 198 Test 05/06/16 06:49 05/06/16 07:46 Anion Gap 13 Basophils # 0.0 Basophils % 0.2 Blood Morphology Comment Blood Urea Nitrogen 26 H Calcium Level 8.8 Carbon Dioxide Level 41 *H Chloride Level 89 L Creatinine 0.82 Eosinophils # 0.0 Eosinophils % 0.4 Glucose Level 202 Hematocrit 38.0 Hemoglobin 12.1 Lymphocytes # 2.9 Lymphocytes % 25.3 Mean Corpuscular Hemoglobin 28.1 L Mean Corpuscular Hemoglobin Concent 31.9 L Mean Corpuscular Volume 87.8 Mean Platelet Volume 8.3 Monocytes # 0.6 Monocytes % 5.4 Neutrophils # 7.9 H Neutrophils % 68.7 Nucleated Red Blood Cells # 0.0 Nucleated Red Blood Cells % 0.0 Platelet Count 322 Potassium Level 4.5 Red Blood Count 4.32 Red Cell Distribution Width 17.5 H Sodium Level 138 White Blood Count 11.4 H Bedside Glucose 225 H Medications Medications Current Medications Levofloxacin/ Dextrose (Levaquin 500mg/ D5W 100 ml (Pmx)) 100 ml @ 100 mls/hr Q24H IVPB Last administered on 05/06/16 06:29; Admin Dose 100 MLS/HR; Start at 06:00 Ondansetron HCl (Zofran Inj) 4 mg Q4H PRN IV NAUSEA AND/OR VOMITING; Start at 01:30 Apixaban (Eliquis) 5 mg BID PO Last administered on 05/06/16 08:42; Admin Dose 5 MG; Start 05/04/16 at 09:00 Atorvastatin Calcium (Lipitor) 40 mg HS PO Last administered on 05/05/16 20:14 ; Admin Dose 40 MG; Start 05/04/16 at 21:00 Digoxin (Digoxin) 0.25 mg DAILY@13 PO Last administered on 05/05/16 13:45; Admin Dose 0.25 MG; Start 05/04/16 at 13:00 Diltiazem HCl (Cardizem Cd) 240 mg DAILY PO Last administered on 05/06/16 08: 42; Admin Dose 240 MG; Start 05/04/16 at 09:00 Metoprolol Tartrate (Lopressor) 25 mg DAILY PO Last administered on 05/06/16 08:42; Admin Dose 25 MG; Start 05/04/16 at 09:00 Spironolactone (Aldactone) 25 mg DAILY PO Last administered on 05/06/16 08:42 ; Admin Dose 25 MG; Start 05/04/16 at 09:00 Miscellaneous Information (Flu Vaccine Previously Dispensed) FLU VACCINE PREVIOU... NOTE PRN XX NOTE; Start 05/04/16 at 03:30 Diagnostic Test (Pha) (Accucheck) 1 ea 02 XX Last administered on 05/06/16 02: 55; Admin Dose 1 EA; Start 05/05/16 at 02:00 Diagnostic Test (Pha) (Accucheck) 1 ea IACHS XX Last administered on 05/06/16 06:29; Admin Dose 1 EA; Start 05/04/16 at 11:30 Miscellaneous Information 1 ea NOTE XX ; Start 05/04/16 at 13:00 Glucose (Glutose) 15 gm Q15M PRN PO DECREASED GLUCOSE; Start 05/04/16 at 13:00 Glucose (Glutose) 22.5 gm Q15M PRN PO DECREASED GLUCOSE; Start 05/04/16 at 13: 00 Dextrose (D50w Syringe) 25 ml Q15M PRN IV DECREASED GLUCOSE; Start 05/04/16 at 13:00 Dextrose (D50w Syringe) 50 ml Q15M PRN IV DECREASED GLUCOSE; Start 05/04/16 at 13:00 Glucagon (Glucagen) 1 mg Q15M PRN IM DECREASED GLUCOSE; Start 05/04/16 at 13:00 Glucose (Glutose) 15 gm Q15M PRN BUCCAL DECREASED GLUCOSE; Start 05/04/16 at 13 :00 Insulin Glargine (Lantus) 15 unit QHS SC Last administered on 05/05/16 20:17; Admin Dose 15 UNIT; Start 05/04/16 at 21:00 Bumetanide (Bumex) 1 mg DAILY PO ; Start 05/07/16 at 09:00 MAGALYS CHAPIN May 06, 2016 12:10
[2016-05-06] MEDS: DIGOXIN 0.25 MG TAB PO SCH (12:30)
--- NOTE | 2016-05-06 13:53 | PN ---
Date/Time of Note Date/Time of Note DATE: 05/06/16 TIME: 13:51 Assessment/Plan VTE Prophylaxis VTE Prophylaxis Intervention: LMWH Lines/Catheters [facility] Saline Lock Urinary Cath still in place: No Assessment/Plan Chief Complaint/Hosp Course Assessment/Plan 1. Hypercapnic and hypoxic respiratory failure. Chief Cardiopulmonary Technologist has been consulted, continue oxygen and breathing treatment as needed 2. Chronic obstructive pulmonary disease exacerbation. As above 3. Possible diastolic congestive heart failure exacerbation. Continue diuretics/Bumex 4. Diabetes with hyperglycemia. Continue insulin, insulin sliding scale and low-carb diet 5. Atrial fibrillation. Continue Eliquis 6. Systemic inflammatory response syndrome with leukocytosis and tachycardia, with no identifiable source of infection at this point. Continue broad-spectrum IV antibiotics We will continue monitor patient closely for recommendation management treatment as clinical course Plan to transfer to acute rehab versus [place] Problems: Subjective 24 Hr Interval Summary Free Text/Dictation Denies of any chest pain or shortness of breath Tolerating oral intake No nausea vomiting diarrhea Exam/Review of Systems Vital Signs Vitals Vital Signs Date Time Temp Pulse Resp B/P Pulse Ox O2 Delivery O2 Flow Rate FiO2 05/06/16 12:24 78 05/06/16 11:52 97.9 19 102/66 97 05/06/16 08:59 4.0 05/06/16 08:59 Nasal Cannula Intake and Output 05/05/16 05/05/16 05/06/16 15:00 23:00 07:00 Intake Total 600 ml 250 ml Balance 600 ml 250 ml Exam General: The patient is moderately overweight, Not in acute distress. HEENT: Atraumatic, normocephalic. The pupils are equal and round . Neck: Supple with full range of motion. Chest: Normal expansion of the thorax during inspiration Lungs: Clear to auscultation bilaterally Heart: Normal S1-S2, Regular rhythm and rate. Abdomen: Soft , nontender, nondistended , bowel sounds are present. Extremities: Normal to inspection, trace edema no cyanosis Neurologic: Normal mental status,The patient is awake, alert and oriented . Results Result Diagram: 05/06/16 0649 05/06/16 0649 Results 24 hrs Laboratory Tests Test 05/05/16 17:32 05/05/16 20:13 05/06/16 02:58 05/06/16 06:34 Bedside Glucose 161 280 H 248 H 198 Test 05/06/16 06:49 05/06/16 07:46 05/06/16 12:14 Anion Gap 13 Basophils # 0.0 Basophils % 0.2 Blood Morphology Comment Blood Urea Nitrogen 26 H Calcium Level 8.8 Carbon Dioxide Level 41 *H Chloride Level 89 L Creatinine 0.82 Eosinophils # 0.0 Eosinophils % 0.4 Glucose Level 202 Hematocrit 38.0 Hemoglobin 12.1 Lymphocytes # 2.9 Lymphocytes % 25.3 Mean Corpuscular Hemoglobin 28.1 L Mean Corpuscular Hemoglobin Concent 31.9 L Mean Corpuscular Volume 87.8 Mean Platelet Volume 8.3 Monocytes # 0.6 Monocytes % 5.4 Neutrophils # 7.9 H Neutrophils % 68.7 Nucleated Red Blood Cells # 0.0 Nucleated Red Blood Cells % 0.0 Platelet Count 322 Potassium Level 4.5 Red Blood Count 4.32 Red Cell Distribution Width 17.5 H Sodium Level 138 White Blood Count 11.4 H Bedside Glucose 225 H 189 Medications Medications Current Medications Levofloxacin/ Dextrose (Levaquin 500mg/ D5W 100 ml (Pmx)) 100 ml @ 100 mls/hr Q24H IVPB Last administered on 05/06/16 06:29; Admin Dose 100 MLS/HR; Start at 06:00 Ondansetron HCl (Zofran Inj) 4 mg Q4H PRN IV NAUSEA AND/OR VOMITING; Start at 01:30 Apixaban (Eliquis) 5 mg BID PO Last administered on 05/06/16 08:42; Admin Dose 5 MG; Start 05/04/16 at 09:00 Atorvastatin Calcium (Lipitor) 40 mg HS PO Last administered on 05/05/16 20:14 ; Admin Dose 40 MG; Start 05/04/16 at 21:00 Digoxin (Digoxin) 0.25 mg DAILY@13 PO Last administered on 05/06/16 12:30; Admin Dose 0.25 MG; Start 05/04/16 at 13:00 Diltiazem HCl (Cardizem Cd) 240 mg DAILY PO Last administered on 05/06/16 08: 42; Admin Dose 240 MG; Start 05/04/16 at 09:00 Metoprolol Tartrate (Lopressor) 25 mg DAILY PO Last administered on 05/06/16 08:42; Admin Dose 25 MG; Start 05/04/16 at 09:00 Spironolactone (Aldactone) 25 mg DAILY PO Last administered on 05/06/16 08:42 ; Admin Dose 25 MG; Start 05/04/16 at 09:00 Miscellaneous Information (Flu Vaccine Previously Dispensed) FLU VACCINE PREVIOU... NOTE PRN XX NOTE; Start 05/04/16 at 03:30 Diagnostic Test (Pha) (Accucheck) 1 ea 02 XX Last administered on 05/06/16 02: 55; Admin Dose 1 EA; Start 05/05/16 at 02:00 Diagnostic Test (Pha) (Accucheck) 1 ea IACHS XX Last administered on 05/06/16 12:26; Admin Dose 1 EA; Start 05/04/16 at 11:30 Miscellaneous Information 1 ea NOTE XX ; Start 05/04/16 at 13:00 Glucose (Glutose) 15 gm Q15M PRN PO DECREASED GLUCOSE; Start 05/04/16 at 13:00 Glucose (Glutose) 22.5 gm Q15M PRN PO DECREASED GLUCOSE; Start 05/04/16 at 13: 00 Dextrose (D50w Syringe) 25 ml Q15M PRN IV DECREASED GLUCOSE; Start 05/04/16 at 13:00 Dextrose (D50w Syringe) 50 ml Q15M PRN IV DECREASED GLUCOSE; Start 05/04/16 at 13:00 Glucagon (Glucagen) 1 mg Q15M PRN IM DECREASED GLUCOSE; Start 05/04/16 at 13:00 Glucose (Glutose) 15 gm Q15M PRN BUCCAL DECREASED GLUCOSE; Start 05/04/16 at 13 :00 Insulin Glargine (Lantus) 15 unit QHS SC Last administered on 05/05/16 20:17; Admin Dose 15 UNIT; Start 05/04/16 at 21:00 Bumetanide 1 mg 1 mg DAILY PO ; Start 05/07/16 at 09:00 Cefepime HCl (Maxipime 1gm/50 ml (Pmx)) 50 ml @ 100 mls/hr Q12 IVPB ; Start at 21:00 YENNIFER CALABRESE MD May 06, 2016 13:53
[2016-05-06] MEDS: ATORVASTATIN 40 MG TAB PO SCH (21:01)
[2016-05-06] MEDS: CEFEPIME 1GM/50 ML (PMX) 50 ML IVPB SCH (21:02)
[2016-05-06] MEDS: INSULIN GLARGINE [LANtus] 3 ML PEN SC SCH (21:04)
[2016-05-07] VITALS (11 sets, daily range): BP systolic 100–125; BP diastolic 56–75; PULSE 67–100; RESP 16–18
[2016-05-07] MEDS: IPRATROPIUM (NEB) 0.5 MG/2.5 ML AMP HHN SCH ×6 (00:56→20:12)
[2016-05-07] MEDS: LEVALBUTEROL (NEB) 1.25 MG/0.5 ML AMP HHN SCH ×6 (00:57→20:12)
[2016-05-07] MEDS: ACCUCHECK XX SCH ×5 (02:15→21:00)
[2016-05-07] MEDS: LEVOFLOXACIN 500MG/D5W (PMX) 100 ML IVPB SCH (06:13)
[2016-05-07 07:14] LABS: BASOPHILS % 0.4 % (0.0-2.0); EOSINOPHILS # 0.1 10^3/ul (0.0-0.5); EOSINOPHILS % 0.6 % (0.0-7.0); HEMATOCRIT 38.4 % (37.0-47.0); HEMOGLOBIN 12.4 g/dl (12.0-16.0); LYMPHOCYTES # 2.1 10^3/ul (0.8-2.9); LYMPHOCYTES % 19.5 % (15.0-51.0); MEAN CORPUSCULAR HEMOGLOBIN 28.1 pg (29.0-33.0); MEAN CORPUSCULAR HGB CONC 32.1 g/dl (32.0-37.0); MEAN CORPUSCULAR VOLUME 87.3 fl (82.0-101.0); MEAN PLATELET VOLUME 7.9 fl (7.4-10.4); MONOCYTE # 0.6 10^3/ul (0.3-0.9); MONOCYTES % 5.8 % (0.0-11.0); NEUTROPHILS % 73.7 % (39.0-77.0); PLATELET COUNT 328 10^3/UL (140-440); RED CELL DISTRIBUTION WIDTH 17.7 % (11.5-14.5); UNCORRECTED WBC 10.9 10^3/ul (4.8-10.8); WHITE BLOOD COUNT 10.9 10^3/ul (4.8-10.8)
[2016-05-07 07:17] LABS: CONDITION 1; LH ANALYZER COMMENTS 1
[2016-05-07 07:30] LABS: POTASSIUM 4.7 mmol/L (3.5-5.1)
[2016-05-07 07:32] LABS: CREATININE 1.01 mg/dl (0.44-1.00)
[2016-05-07 07:33] LABS: CALCIUM 9.2 mg/dl (8.4-10.2); MAGNESIUM 2.1 mg/dl (1.7-2.5)
[2016-05-07] MEDS: METOPROLOL 25 MG TAB PO SCH (08:31)
[2016-05-07] MEDS: APIXABAN 5 MG TABLET PO SCH ×2 (08:31→21:56)
[2016-05-07] MEDS: DILTIAZEM (CD) 240 MG CAP PO SCH (08:32)
[2016-05-07] MEDS: BUMETANIDE 1 MG TAB PO SCH (08:32)
[2016-05-07] MEDS: SPIRONOLACTONE 25 MG TAB PO SCH (08:32)
[2016-05-07] MEDS: INSULIN ASPART [NOVOLOG] 3 ML PEN SC SCH ×7 (08:33→22:02)
[2016-05-07] MEDS: CEFEPIME 1GM/50 ML (PMX) 50 ML IVPB SCH ×2 (08:39→21:55)
--- NOTE | 2016-05-07 11:03 | CONS ---
Date/Time of Note Date/Time of Note DATE: 05/07/16 TIME: 11:01 Assessment/Plan Assessment/Plan Additional Assessment/Plan 1. Hypercapnic and hypoxic respiratory failure secondary to a combination of congestive heart failure and chronic obstructive pulmonary disease. 2. Severe metabolic alkalosis with possible diastolic heart failure. HCo3 39 yesterday, today's pending 3. Diabetes with hyperglycemia. 4. Atrial fibrillation on anticoagulation with Eliquis. 5. Systemic inflammatory response syndrome with leukocytosis and tachycardia. Plan: [place], Cr slightly bumped s/p diomax 500mg IV x 1 dose for severe metabolic alkalosis on 05/06/16- now HCo3 35 changed Bumex to 1 mg po daily on 05/06/16- Cr slightly bumped, will monitor it ( pt was on Bumex 2 mg AM and 1 mg pM at home) will follow up Consultation Date/Type/Reason Admit Date/Time May 03, 2016 at 21:44 Initial Consult Date Apr Type of Consultation: NEPHROLOGY Reason for Consultation severe metabolic alkalosis, prerenal azotemia on Diuretics Referring Provider: YENNIFER CALABRESE MD 24 HR Interval Summary Free Text/Dictation pt remained stable, received Diomax 500mg IV x 1 yesterday, today HCO3 35 Exam/Review of Systems Vital Signs Vitals Vital Signs Date Time Temp Pulse Resp B/P Pulse Ox O2 Delivery O2 Flow Rate FiO2 05/07/16 08:33 Nasal Cannula 4.0 05/07/16 08:31 101 20 97 05/07/16 07:46 98.4 110/66 Intake and Output 05/06/16 05/06/16 05/07/16 15:00 23:00 07:00 Intake Total 860 ml 250 ml Balance 860 ml 250 ml Results Result Diagram: 05/07/16 0543 05/07/16 0543 Results 24 hrs Laboratory Tests Test 05/06/16 12:14 05/06/16 17:11 05/06/16 20:55 05/07/16 02:18 Bedside Glucose 189 232 H 261 H 220 Test 05/07/16 05:43 05/07/16 07:57 Anion Gap 15 Basophils # 0.0 Basophils % 0.4 Blood Morphology Comment Blood Urea Nitrogen 24 H Calcium Level 9.2 Carbon Dioxide Level 35 H Chloride Level 96 L Creatinine 1.01 H Eosinophils # 0.1 Eosinophils % 0.6 Glucose Level 206 Hematocrit 38.4 Hemoglobin 12.4 Lymphocytes # 2.1 Lymphocytes % 19.5 Magnesium Level 2.1 Mean Corpuscular Hemoglobin 28.1 L Mean Corpuscular Hemoglobin Concent 32.1 Mean Corpuscular Volume 87.3 Mean Platelet Volume 7.9 Monocytes # 0.6 Monocytes % 5.8 Neutrophils # 8.0 H Neutrophils % 73.7 Nucleated Red Blood Cells # 0.0 Nucleated Red Blood Cells % 0.0 Platelet Count 328 Potassium Level 4.7 Red Blood Count 4.40 Red Cell Distribution Width 17.7 H Sodium Level 141 White Blood Count 10.9 H Bedside Glucose 221 H Medications Medications Current Medications Levofloxacin/ Dextrose (Levaquin 500mg/ D5W 100 ml (Pmx)) 100 ml @ 100 mls/hr Q24H IVPB Last administered on 05/07/16 06:13; Admin Dose 100 MLS/HR; Start at 06:00 Ondansetron HCl (Zofran Inj) 4 mg Q4H PRN IV NAUSEA AND/OR VOMITING; Start at 01:30 Apixaban (Eliquis) 5 mg BID PO Last administered on 05/07/16 08:31; Admin Dose 5 MG; Start 05/04/16 at 09:00 Atorvastatin Calcium (Lipitor) 40 mg HS PO Last administered on 05/06/16 21:01 ; Admin Dose 40 MG; Start 05/04/16 at 21:00 Digoxin (Digoxin) 0.25 mg DAILY@13 PO Last administered on 05/06/16 12:30; Admin Dose 0.25 MG; Start 05/04/16 at 13:00 Diltiazem HCl (Cardizem Cd) 240 mg DAILY PO Last administered on 05/07/16 08: 32; Admin Dose 240 MG; Start 05/04/16 at 09:00 Metoprolol Tartrate (Lopressor) 25 mg DAILY PO Last administered on 05/07/16 08:31; Admin Dose 25 MG; Start 05/04/16 at 09:00 Spironolactone (Aldactone) 25 mg DAILY PO Last administered on 05/07/16 08:32 ; Admin Dose 25 MG; Start 05/04/16 at 09:00 Miscellaneous Information (Flu Vaccine Previously Dispensed) FLU VACCINE PREVIOU... NOTE PRN XX NOTE; Start 05/04/16 at 03:30 Diagnostic Test (Pha) (Accucheck) 1 ea 02 XX Last administered on 05/07/16 02: 15; Admin Dose 1 EA; Start 05/05/16 at 02:00 Diagnostic Test (Pha) (Accucheck) 1 ea IACHS XX Last administered on 05/07/16 07:58; Admin Dose 1 EA; Start 05/04/16 at 11:30 Miscellaneous Information 1 ea NOTE XX ; Start 05/04/16 at 13:00 Glucose (Glutose) 15 gm Q15M PRN PO DECREASED GLUCOSE; Start 05/04/16 at 13:00 Glucose (Glutose) 22.5 gm Q15M PRN PO DECREASED GLUCOSE; Start 05/04/16 at 13: 00 Dextrose (D50w Syringe) 25 ml Q15M PRN IV DECREASED GLUCOSE; Start 05/04/16 at 13:00 Dextrose (D50w Syringe) 50 ml Q15M PRN IV DECREASED GLUCOSE; Start 05/04/16 at 13:00 Glucagon (Glucagen) 1 mg Q15M PRN IM DECREASED GLUCOSE; Start 05/04/16 at 13:00 Glucose (Glutose) 15 gm Q15M PRN BUCCAL DECREASED GLUCOSE; Start 05/04/16 at 13 :00 Bumetanide 1 mg 1 mg DAILY PO Last administered on 05/07/16 08:32; Admin Dose 1 MG; Start 05/07/16 at 09:00 Cefepime HCl (Maxipime 1gm/50 ml (Pmx)) 50 ml @ 100 mls/hr Q12 IVPB Last administered on 05/07/16 08:39; Admin Dose 100 MLS/HR; Start 05/06/16 at 21:00 Insulin Glargine (Lantus) 18 unit QHS SC Last administered on 05/06/16 21:04; Admin Dose 18 UNIT; Start 05/06/16 at 21:00 MARIBEL COLORADO MD May 07, 2016 11:02
[2016-05-07] MEDS: DIGOXIN 0.25 MG TAB PO SCH (12:30)
--- NOTE | 2016-05-07 13:10 | PN ---
Date/Time of Note Date/Time of Note DATE: 05/07/16 TIME: 13:05 Assessment/Plan VTE Prophylaxis VTE Prophylaxis Intervention: other (Eliquis) Lines/Catheters [facility] Saline Lock Urinary Cath still in place: No Assessment/Plan Chief Complaint/Hosp Course Assessment/Plan 65 F with: 1. Hypercapnic and hypoxic respiratory failure. Shift Superintendent Caustic Cresylate has been consulted, continue oxygen and breathing treatment as needed 2. Chronic obstructive pulmonary disease exacerbation. As above 3. Possible diastolic congestive heart failure exacerbation. Continue diuretics/Bumex 4. Diabetes with hyperglycemia. Continue insulin, insulin sliding scale and low-carb diet 5. Atrial fibrillation. Continue Eliquis 6. Systemic inflammatory response syndrome with leukocytosis and tachycardia, with no identifiable source of infection at this point. Continue broad-spectrum IV antibiotics 7. Severe metabolic alkalosis - improved after Diamox - monitor, f/u renal rec' s. We will continue monitor patient closely for recommendation management treatment as clinical course Plan to transfer to acute rehab versus [place] Problems: Subjective 24 Hr Interval Summary Free Text/Dictation Still some SOB on ambulation, seen by renal team today. Exam/Review of Systems Vital Signs Vitals Vital Signs Date Time Temp Pulse Resp B/P Pulse Ox O2 Delivery O2 Flow Rate FiO2 05/07/16 12:19 67 05/07/16 11:54 98.4 18 100/56 92 05/07/16 08:33 Nasal Cannula 4.0 Intake and Output 05/06/16 05/06/16 05/07/16 15:00 23:00 07:00 Intake Total 860 ml 250 ml Balance 860 ml 250 ml Exam General: The patient is moderately overweight, Not in acute distress. HEENT: Atraumatic, normocephalic. The pupils are equal and round Neck: Supple with full range of motion. Chest: Normal expansion of the thorax during inspiration Lungs: some decreased BS bilaterally Heart: Normal S1-S2, Regular rhythm and rate. Abdomen: Soft, nontender, nondistended , bowel sounds are present. Extremities: Normal to inspection, trace edema no cyanosis Neurologic: Normal mental status,The patient is awake, alert and oriented Results Result Diagram: 05/07/16 0543 05/07/16 0543 Results 24 hrs Laboratory Tests Test 05/06/16 17:11 05/06/16 20:55 05/07/16 02:18 05/07/16 05:43 Bedside Glucose 232 H 261 H 220 Anion Gap 15 Basophils # 0.0 Basophils % 0.4 Blood Morphology Comment Blood Urea Nitrogen 24 H Calcium Level 9.2 Carbon Dioxide Level 35 H Chloride Level 96 L Creatinine 1.01 H Eosinophils # 0.1 Eosinophils % 0.6 Glucose Level 206 Hematocrit 38.4 Hemoglobin 12.4 Lymphocytes # 2.1 Lymphocytes % 19.5 Magnesium Level 2.1 Mean Corpuscular Hemoglobin 28.1 L Mean Corpuscular Hemoglobin Concent 32.1 Mean Corpuscular Volume 87.3 Mean Platelet Volume 7.9 Monocytes # 0.6 Monocytes % 5.8 Neutrophils # 8.0 H Neutrophils % 73.7 Nucleated Red Blood Cells # 0.0 Nucleated Red Blood Cells % 0.0 Platelet Count 328 Potassium Level 4.7 Red Blood Count 4.40 Red Cell Distribution Width 17.7 H Sodium Level 141 White Blood Count 10.9 H Test 05/07/16 07:57 05/07/16 12:04 Bedside Glucose 221 H 163 Medications Medications Current Medications Levofloxacin/ Dextrose (Levaquin 500mg/ D5W 100 ml (Pmx)) 100 ml @ 100 mls/hr Q24H IVPB Last administered on 05/07/16 06:13; Admin Dose 100 MLS/HR; Start at 06:00 Ondansetron HCl (Zofran Inj) 4 mg Q4H PRN IV NAUSEA AND/OR VOMITING; Start at 01:30 Apixaban (Eliquis) 5 mg BID PO Last administered on 05/07/16 08:31; Admin Dose 5 MG; Start 05/04/16 at 09:00 Atorvastatin Calcium (Lipitor) 40 mg HS PO Last administered on 05/06/16 21:01 ; Admin Dose 40 MG; Start 05/04/16 at 21:00 Digoxin (Digoxin) 0.25 mg DAILY@13 PO Last administered on 05/07/16 12:30; Admin Dose 0.25 MG; Start 05/04/16 at 13:00 Diltiazem HCl (Cardizem Cd) 240 mg DAILY PO Last administered on 05/07/16 08: 32; Admin Dose 240 MG; Start 05/04/16 at 09:00 Metoprolol Tartrate (Lopressor) 25 mg DAILY PO Last administered on 05/07/16 08:31; Admin Dose 25 MG; Start 05/04/16 at 09:00 Spironolactone (Aldactone) 25 mg DAILY PO Last administered on 05/07/16 08:32 ; Admin Dose 25 MG; Start 05/04/16 at 09:00 Miscellaneous Information (Flu Vaccine Previously Dispensed) FLU VACCINE PREVIOU... NOTE PRN XX NOTE; Start 05/04/16 at 03:30 Diagnostic Test (Pha) (Accucheck) 1 ea 02 XX Last administered on 05/07/16 02: 15; Admin Dose 1 EA; Start 05/05/16 at 02:00 Diagnostic Test (Pha) (Accucheck) 1 ea IACHS XX Last administered on 05/07/16 12:25; Admin Dose 1 EA; Start 05/04/16 at 11:30 Miscellaneous Information 1 ea NOTE XX ; Start 05/04/16 at 13:00 Glucose (Glutose) 15 gm Q15M PRN PO DECREASED GLUCOSE; Start 05/04/16 at 13:00 Glucose (Glutose) 22.5 gm Q15M PRN PO DECREASED GLUCOSE; Start 05/04/16 at 13: 00 Dextrose (D50w Syringe) 25 ml Q15M PRN IV DECREASED GLUCOSE; Start 05/04/16 at 13:00 Dextrose (D50w Syringe) 50 ml Q15M PRN IV DECREASED GLUCOSE; Start 05/04/16 at 13:00 Glucagon (Glucagen) 1 mg Q15M PRN IM DECREASED GLUCOSE; Start 05/04/16 at 13:00 Glucose (Glutose) 15 gm Q15M PRN BUCCAL DECREASED GLUCOSE; Start 05/04/16 at 13 :00 Bumetanide 1 mg 1 mg DAILY PO Last administered on 05/07/16 08:32; Admin Dose 1 MG; Start 05/07/16 at 09:00 Cefepime HCl (Maxipime 1gm/50 ml (Pmx)) 50 ml @ 100 mls/hr Q12 IVPB Last administered on 05/07/16 08:39; Admin Dose 100 MLS/HR; Start 05/06/16 at 21:00 Insulin Glargine (Lantus) 18 unit QHS SC Last administered on 2/17/17at 21:04; Admin Dose 18 UNIT; Start 05/06/16 at 21:00 TAMEKA JEFFERSON May 07, 2016 13:10
--- NOTE | 2016-05-07 18:59 | CONS ---
Date/Time of Note Date/Time of Note DATE: 05/07/16 TIME: 18:57 Consult Date/Type/Reason Admit Date/Time May 03, 2016 at 21:44 Initial Consult Date Type of Consultation: Pulm Ordering Provider: YENNIFER CALABRESE MD Subjective No events. Objective Vital Signs Date Time Temp Pulse Resp B/P Pulse Ox O2 Delivery O2 Flow Rate FiO2 05/07/16 16:40 99 18 98 Nasal Cannula 4.0 05/07/16 16:00 97.7 111/70 Intake and Output 05/06/16 05/06/16 05/07/16 15:00 23:00 07:00 Intake Total 860 ml 250 ml Balance 860 ml 250 ml HEENT: Neck supple; no JVD; no LAD CVS: RRR, S1 and S2 CHEST: Bibasilar rales ABD: Soft, NT, + BS EXT: No c/c/ + edema Results/Medications Result Diagram: 05/07/16 0543 05/07/16 0543 Results 24 hrs Laboratory Tests Test 05/06/16 20:55 05/07/16 02:18 05/07/16 05:43 05/07/16 07:57 Bedside Glucose 261 H 220 221 H Anion Gap 15 Basophils # 0.0 Basophils % 0.4 Blood Morphology Comment Blood Urea Nitrogen 24 H Calcium Level 9.2 Carbon Dioxide Level 35 H Chloride Level 96 L Creatinine 1.01 H Eosinophils # 0.1 Eosinophils % 0.6 Glucose Level 206 Hematocrit 38.4 Hemoglobin 12.4 Lymphocytes # 2.1 Lymphocytes % 19.5 Magnesium Level 2.1 Mean Corpuscular Hemoglobin 28.1 L Mean Corpuscular Hemoglobin Concent 32.1 Mean Corpuscular Volume 87.3 Mean Platelet Volume 7.9 Monocytes # 0.6 Monocytes % 5.8 Neutrophils # 8.0 H Neutrophils % 73.7 Nucleated Red Blood Cells # 0.0 Nucleated Red Blood Cells % 0.0 Platelet Count 328 Potassium Level 4.7 Red Blood Count 4.40 Red Cell Distribution Width 17.7 H Sodium Level 141 White Blood Count 10.9 H Test 05/07/16 12:04 05/07/16 17:44 Bedside Glucose 163 295 H Medications Current Medications Levofloxacin/ Dextrose (Levaquin 500mg/ D5W 100 ml (Pmx)) 100 ml @ 100 mls/hr Q24H IVPB Last administered on 05/07/16 06:13; Admin Dose 100 MLS/HR; Start at 06:00 Ondansetron HCl (Zofran Inj) 4 mg Q4H PRN IV NAUSEA AND/OR VOMITING; Start at 01:30 Apixaban (Eliquis) 5 mg BID PO Last administered on 05/07/16 08:31; Admin Dose 5 MG; Start 05/04/16 at 09:00 Atorvastatin Calcium (Lipitor) 40 mg HS PO Last administered on 05/06/16 21:01 ; Admin Dose 40 MG; Start 05/04/16 at 21:00 Digoxin (Digoxin) 0.25 mg DAILY@13 PO Last administered on 05/07/16 12:30; Admin Dose 0.25 MG; Start 05/04/16 at 13:00 Diltiazem HCl (Cardizem Cd) 240 mg DAILY PO Last administered on 05/07/16 08: 32; Admin Dose 240 MG; Start 05/04/16 at 09:00 Metoprolol Tartrate (Lopressor) 25 mg DAILY PO Last administered on 05/07/16 08:31; Admin Dose 25 MG; Start 05/04/16 at 09:00 Spironolactone (Aldactone) 25 mg DAILY PO Last administered on 05/07/16 08:32 ; Admin Dose 25 MG; Start 05/04/16 at 09:00 Miscellaneous Information (Flu Vaccine Previously Dispensed) FLU VACCINE PREVIOU... NOTE PRN XX NOTE; Start 05/04/16 at 03:30 Diagnostic Test (Pha) (Accucheck) 1 ea 02 XX Last administered on 05/07/16 02: 15; Admin Dose 1 EA; Start 05/05/16 at 02:00 Diagnostic Test (Pha) (Accucheck) 1 ea IACHS XX Last administered on 05/07/16 12:25; Admin Dose 1 EA; Start 05/04/16 at 11:30 Miscellaneous Information 1 ea NOTE XX ; Start 05/04/16 at 13:00 Glucose (Glutose) 15 gm Q15M PRN PO DECREASED GLUCOSE; Start 05/04/16 at 13:00 Glucose (Glutose) 22.5 gm Q15M PRN PO DECREASED GLUCOSE; Start 05/04/16 at 13: 00 Dextrose (D50w Syringe) 25 ml Q15M PRN IV DECREASED GLUCOSE; Start 05/04/16 at 13:00 Dextrose (D50w Syringe) 50 ml Q15M PRN IV DECREASED GLUCOSE; Start 05/04/16 at 13:00 Glucagon (Glucagen) 1 mg Q15M PRN IM DECREASED GLUCOSE; Start 05/04/16 at 13:00 Glucose (Glutose) 15 gm Q15M PRN BUCCAL DECREASED GLUCOSE; Start 05/04/16 at 13 :00 Bumetanide 1 mg 1 mg DAILY PO Last administered on 05/07/16 08:32; Admin Dose 1 MG; Start 05/07/16 at 09:00 Cefepime HCl (Maxipime 1gm/50 ml (Pmx)) 50 ml @ 100 mls/hr Q12 IVPB Last administered on 05/07/16 08:39; Admin Dose 100 MLS/HR; Start 05/06/16 at 21:00 Insulin Glargine (Lantus) 18 unit QHS SC Last administered on 05/06/16 21:04; Admin Dose 18 UNIT; Start 05/06/16 at 21:00 Assessment/Plan Additional Assessment/Plan IMP: 1. Chronic hypercapnic/hypoxemic resp insufficiency 2. COPD 3. CHF RECS: 1. BD's/CPT/CS/Abx 2. Diuresis 3. Titrate FiO2 to SpO2 88-92% LISSETTE ATKINS MD May 07, 2016 18:59
[2016-05-07] MEDS: ATORVASTATIN 40 MG TAB PO SCH (21:57)
[2016-05-07] MEDS: INSULIN GLARGINE [LANtus] 3 ML PEN SC SCH (22:01)
[2016-05-08] VITALS (11 sets, daily range): BP systolic 102–141; BP diastolic 55–100; PULSE 65–103; RESP 17–19
[2016-05-08] MEDS: IPRATROPIUM (NEB) 0.5 MG/2.5 ML AMP HHN SCH ×6 (00:52→20:41)
[2016-05-08] MEDS: LEVALBUTEROL (NEB) 1.25 MG/0.5 ML AMP HHN SCH ×6 (00:52→20:41)
[2016-05-08] MEDS: ACCUCHECK XX SCH ×5 (03:00→21:00)
[2016-05-08 05:30] LABS: POTASSIUM 4.6 mmol/L (3.5-5.1)
[2016-05-08 05:33] LABS: CALCIUM 9.1 mg/dl (8.4-10.2); CREATININE 0.91 mg/dl (0.44-1.00)
[2016-05-08 05:36] LABS: BASOPHILS % 0.3 % (0.0-2.0); EOSINOPHILS # 0.1 10^3/ul (0.0-0.5); EOSINOPHILS % 0.9 % (0.0-7.0); HEMATOCRIT 39.1 % (37.0-47.0); HEMOGLOBIN 12.6 g/dl (12.0-16.0); LYMPHOCYTES % 13.7 % (15.0-51.0); MEAN CORPUSCULAR HEMOGLOBIN 28.2 pg (29.0-33.0); MEAN CORPUSCULAR HGB CONC 32.3 g/dl (32.0-37.0); MEAN CORPUSCULAR VOLUME 87.3 fl (82.0-101.0); MEAN PLATELET VOLUME 7.8 fl (7.4-10.4); MONOCYTE # 0.5 10^3/ul (0.3-0.9); MONOCYTES % 3.3 % (0.0-11.0); NEUTROPHIL # 12.1 10^3/ul (1.6-7.5); NEUTROPHILS % 81.8 % (39.0-77.0); PLATELET COUNT 350 10^3/UL (140-440); RED BLOOD COUNT 4.48 10^6/ul (4.20-5.40); UNCORRECTED WBC 14.8 10^3/ul (4.8-10.8); WHITE BLOOD COUNT 14.8 10^3/ul (4.8-10.8)
[2016-05-08 06:13] LABS: CONDITION 1; LH ANALYZER COMMENTS 1
[2016-05-08] MEDS: LEVOFLOXACIN 500MG/D5W (PMX) 100 ML IVPB SCH (06:15)
[2016-05-08] MEDS: INSULIN ASPART [NOVOLOG] 3 ML PEN SC SCH ×7 (08:47→21:13)
[2016-05-08] MEDS: SPIRONOLACTONE 25 MG TAB PO SCH (08:50)
[2016-05-08] MEDS: DILTIAZEM (CD) 240 MG CAP PO SCH (08:51)
[2016-05-08] MEDS: BUMETANIDE 1 MG TAB PO SCH (08:51)
[2016-05-08] MEDS: APIXABAN 5 MG TABLET PO SCH ×2 (08:52→21:11)
[2016-05-08] MEDS: METOPROLOL 25 MG TAB PO SCH (08:52)
[2016-05-08] MEDS: CEFEPIME 1GM/50 ML (PMX) 50 ML IVPB SCH ×2 (08:54→21:10)
--- NOTE | 2016-05-08 10:44 | PN ---
Date/Time of Note Date/Time of Note DATE: 05/08/16 TIME: 10:43 Assessment/Plan VTE Prophylaxis VTE Prophylaxis Intervention: other (Eliquis) Lines/Catheters [facility] Saline Lock Urinary Cath still in place: No Assessment/Plan Chief Complaint/Hosp Course Assessment/Plan 65 F with: 1. Hypercapnic and hypoxic respiratory failure - slowly improving. Billet Grinder has been consulted, continue oxygen and breathing treatment as needed 2. Chronic obstructive pulmonary disease exacerbation. As above 3. Possible diastolic congestive heart failure exacerbation. Continue diuretics/Bumex 4. Diabetes with hyperglycemia. Continue insulin, insulin sliding scale and low-carb diet 5. Atrial fibrillation. Continue Eliquis 6. Systemic inflammatory response syndrome with leukocytosis and tachycardia, with no identifiable source of infection at this point. Continue broad-spectrum IV antibiotics 7. Severe metabolic alkalosis - improved after Diamox given 2 days ago - monitor , f/u renal rec's. We will continue monitor patient closely for recommendation management treatment as clinical course Plan to transfer to acute rehab versus [place] Problems: Subjective 24 Hr Interval Summary Free Text/Dictation No acute events overnight. Exam/Review of Systems Vital Signs Vitals Vital Signs Date Time Temp Pulse Resp B/P Pulse Ox O2 Delivery O2 Flow Rate FiO2 05/08/16 08:16 91 05/08/16 07:53 Nasal Cannula 4.0 05/08/16 07:26 98.1 18 106/61 94 Intake and Output 05/07/16 05/07/16 05/08/16 15:00 23:00 07:00 Intake Total 50 ml 400 ml 390 ml Output Total 1200 ml Balance 50 ml -800 ml 390 ml Exam General: The patient is moderately overweight, Not in acute distress. HEENT: Atraumatic, normocephalic. The pupils are equal and round Neck: Supple with full range of motion. Chest: Normal expansion of the thorax during inspiration Lungs: some decreased BS bilaterally Heart: Normal S1-S2, Regular rhythm and rate. Abdomen: Soft, nontender, nondistended , bowel sounds are present. Extremities: Normal to inspection, trace edema no cyanosis Neurologic: Normal mental status,The patient is awake, alert and oriented Results Result Diagram: 05/08/16 0435 05/08/16 0435 Results 24 hrs Laboratory Tests Test 05/07/16 12:04 05/07/16 17:44 05/07/16 20:11 05/07/16 21:52 Bedside Glucose 163 295 H 248 H 231 H Test 05/08/16 03:32 05/08/16 04:35 05/08/16 08:26 Bedside Glucose 217 218 Anion Gap 13 Basophils # 0.0 Basophils % 0.3 Blood Morphology Comment Blood Urea Nitrogen 24 H Calcium Level 9.1 Carbon Dioxide Level 35 H Chloride Level 95 L Creatinine 0.91 Eosinophils # 0.1 Eosinophils % 0.9 Glucose Level 205 Hematocrit 39.1 Hemoglobin 12.6 Lymphocytes # 2.0 Lymphocytes % 13.7 L Mean Corpuscular Hemoglobin 28.2 L Mean Corpuscular Hemoglobin Concent 32.3 Mean Corpuscular Volume 87.3 Mean Platelet Volume 7.8 Monocytes # 0.5 Monocytes % 3.3 Neutrophils # 12.1 H Neutrophils % 81.8 H Nucleated Red Blood Cells # 0.0 Nucleated Red Blood Cells % 0.0 Platelet Count 350 Potassium Level 4.6 Red Blood Count 4.48 Red Cell Distribution Width 18.0 H Sodium Level 138 White Blood Count 14.8 #H Medications Medications Current Medications Levofloxacin/ Dextrose (Levaquin 500mg/ D5W 100 ml (Pmx)) 100 ml @ 100 mls/hr Q24H IVPB Last administered on 05/08/16 06:15; Admin Dose 100 MLS/HR; Start at 06:00 Ondansetron HCl (Zofran Inj) 4 mg Q4H PRN IV NAUSEA AND/OR VOMITING; Start at 01:30 Apixaban (Eliquis) 5 mg BID PO Last administered on 05/08/16 08:52; Admin Dose 5 MG; Start 05/04/16 at 09:00 Atorvastatin Calcium (Lipitor) 40 mg HS PO Last administered on 05/07/16 21:57 ; Admin Dose 40 MG; Start 05/04/16 at 21:00 Digoxin (Digoxin) 0.25 mg DAILY@13 PO Last administered on 05/07/16 12:30; Admin Dose 0.25 MG; Start 05/04/16 at 13:00 Diltiazem HCl (Cardizem Cd) 240 mg DAILY PO Last administered on 05/08/16 08: 51; Admin Dose 240 MG; Start 05/04/16 at 09:00 Metoprolol Tartrate (Lopressor) 25 mg DAILY PO Last administered on 05/08/16 08:52; Admin Dose 25 MG; Start 05/04/16 at 09:00 Spironolactone (Aldactone) 25 mg DAILY PO Last administered on 05/08/16 08:50 ; Admin Dose 25 MG; Start 05/04/16 at 09:00 Miscellaneous Information (Flu Vaccine Previously Dispensed) FLU VACCINE PREVIOU... NOTE PRN XX NOTE; Start 05/04/16 at 03:30 Diagnostic Test (Pha) (Accucheck) 1 ea 02 XX Last administered on 05/07/16 02: 15; Admin Dose 1 EA; Start 05/05/16 at 02:00 Diagnostic Test (Pha) (Accucheck) 1 ea IACHS XX Last administered on 05/08/16 07:00; Admin Dose 1 EA; Start 05/04/16 at 11:30 Miscellaneous Information 1 ea NOTE XX ; Start 05/04/16 at 13:00 Glucose (Glutose) 15 gm Q15M PRN PO DECREASED GLUCOSE; Start 05/04/16 at 13:00 Glucose (Glutose) 22.5 gm Q15M PRN PO DECREASED GLUCOSE; Start 05/04/16 at 13: 00 Dextrose (D50w Syringe) 25 ml Q15M PRN IV DECREASED GLUCOSE; Start 05/04/16 at 13:00 Dextrose (D50w Syringe) 50 ml Q15M PRN IV DECREASED GLUCOSE; Start 05/04/16 at 13:00 Glucagon (Glucagen) 1 mg Q15M PRN IM DECREASED GLUCOSE; Start 05/04/16 at 13:00 Glucose (Glutose) 15 gm Q15M PRN BUCCAL DECREASED GLUCOSE; Start 05/04/16 at 13 :00 Bumetanide 1 mg 1 mg DAILY PO Last administered on 05/08/16 08:51; Admin Dose 1 MG; Start 05/07/16 at 09:00 Cefepime HCl (Maxipime 1gm/50 ml (Pmx)) 50 ml @ 100 mls/hr Q12 IVPB Last administered on 05/08/16 08:54; Admin Dose 100 MLS/HR; Start 05/06/16 at 21:00 Insulin Glargine (Lantus) 18 unit QHS SC Last administered on 05/07/16t 22:01; Admin Dose 18 UNIT; Start 05/06/16 at 21:00 TAMEKA JEFFERSON May 08, 2016 10:44
[2016-05-08] MEDS: DIGOXIN 0.25 MG TAB PO SCH (12:20)
--- NOTE | 2016-05-08 17:55 | CONS ---
Date/Time of Note Date/Time of Note DATE: 05/08/16 TIME: 17:54 Consult Date/Type/Reason Admit Date/Time May 03, 2016 at 21:44 Type of Consultation: Pulm Ordering Provider: YENNIFER CALABRESE MD Subjective No events. Objective Vital Signs Date Time Temp Pulse Resp B/P Pulse Ox O2 Delivery O2 Flow Rate FiO2 05/08/16 16:09 65 05/08/16 16:00 97.8 17 141/100 100 05/08/16 07:53 Nasal Cannula 4.0 Intake and Output 05/07/16 05/07/16 05/08/16 15:00 23:00 07:00 Intake Total 50 ml 400 ml 390 ml Output Total 1200 ml Balance 50 ml -800 ml 390 ml HEENT: Neck supple; no JVD; no LAD CVS: RRR, S1 and S2 CHEST: Bibasilar rales ABD: Soft, NT, + BS EXT: No c/c/ + edema Results/Medications Result Diagram: 05/08/16 0435 05/08/16 0435 Results 24 hrs Laboratory Tests Test 05/07/16 20:11 05/07/16 21:52 05/08/16 03:32 05/08/16 04:35 Bedside Glucose 248 H 231 H 217 Anion Gap 13 Basophils # 0.0 Basophils % 0.3 Blood Morphology Comment Blood Urea Nitrogen 24 H Calcium Level 9.1 Carbon Dioxide Level 35 H Chloride Level 95 L Creatinine 0.91 Eosinophils # 0.1 Eosinophils % 0.9 Glucose Level 205 Hematocrit 39.1 Hemoglobin 12.6 Lymphocytes # 2.0 Lymphocytes % 13.7 L Mean Corpuscular Hemoglobin 28.2 L Mean Corpuscular Hemoglobin Concent 32.3 Mean Corpuscular Volume 87.3 Mean Platelet Volume 7.8 Monocytes # 0.5 Monocytes % 3.3 Neutrophils # 12.1 H Neutrophils % 81.8 H Nucleated Red Blood Cells # 0.0 Nucleated Red Blood Cells % 0.0 Platelet Count 350 Potassium Level 4.6 Red Blood Count 4.48 Red Cell Distribution Width 18.0 H Sodium Level 138 White Blood Count 14.8 #H Test 05/08/16 08:26 05/08/16 12:13 05/08/16 17:24 Bedside Glucose 218 218 293 H Medications Current Medications Levofloxacin/ Dextrose (Levaquin 500mg/ D5W 100 ml (Pmx)) 100 ml @ 100 mls/hr Q24H IVPB Last administered on 05/08/16 06:15; Admin Dose 100 MLS/HR; Start at 06:00 Ondansetron HCl (Zofran Inj) 4 mg Q4H PRN IV NAUSEA AND/OR VOMITING; Start at 01:30 Apixaban (Eliquis) 5 mg BID PO Last administered on 05/08/16 08:52; Admin Dose 5 MG; Start 05/04/16 at 09:00 Atorvastatin Calcium (Lipitor) 40 mg HS PO Last administered on 05/07/16 21:57 ; Admin Dose 40 MG; Start 05/04/16 at 21:00 Digoxin (Digoxin) 0.25 mg DAILY@13 PO Last administered on 05/08/16 12:20; Admin Dose 0.25 MG; Start 05/04/16 at 13:00 Diltiazem HCl (Cardizem Cd) 240 mg DAILY PO Last administered on 05/08/16 08: 51; Admin Dose 240 MG; Start 05/04/16 at 09:00 Metoprolol Tartrate (Lopressor) 25 mg DAILY PO Last administered on 05/08/16 08:52; Admin Dose 25 MG; Start 05/04/16 at 09:00 Spironolactone (Aldactone) 25 mg DAILY PO Last administered on 05/08/16 08:50 ; Admin Dose 25 MG; Start 05/04/16 at 09:00 Miscellaneous Information (Flu Vaccine Previously Dispensed) FLU VACCINE PREVIOU... NOTE PRN XX NOTE; Start 05/04/16 at 03:30 Diagnostic Test (Pha) (Accucheck) 1 ea 02 XX Last administered on 05/07/16 02: 15; Admin Dose 1 EA; Start 05/05/16 at 02:00 Diagnostic Test (Pha) (Accucheck) 1 ea IACHS XX Last administered on 05/08/16 17:26; Admin Dose 1 EA; Start 05/04/16 at 11:30 Miscellaneous Information 1 ea NOTE XX ; Start 05/04/16 at 13:00 Glucose (Glutose) 15 gm Q15M PRN PO DECREASED GLUCOSE; Start 05/04/16 at 13:00 Glucose (Glutose) 22.5 gm Q15M PRN PO DECREASED GLUCOSE; Start 05/04/16 at 13: 00 Dextrose (D50w Syringe) 25 ml Q15M PRN IV DECREASED GLUCOSE; Start 05/04/16 at 13:00 Dextrose (D50w Syringe) 50 ml Q15M PRN IV DECREASED GLUCOSE; Start 05/04/16 at 13:00 Glucagon (Glucagen) 1 mg Q15M PRN IM DECREASED GLUCOSE; Start 05/04/16 at 13:00 Glucose (Glutose) 15 gm Q15M PRN BUCCAL DECREASED GLUCOSE; Start 05/04/16 at 13 :00 Bumetanide 1 mg 1 mg DAILY PO Last administered on 05/08/16 08:51; Admin Dose 1 MG; Start 05/07/16 at 09:00 Cefepime HCl (Maxipime 1gm/50 ml (Pmx)) 50 ml @ 100 mls/hr Q12 IVPB Last administered on 05/08/16 08:54; Admin Dose 100 MLS/HR; Start 05/06/16 at 21:00 Insulin Glargine (Lantus) 18 unit QHS SC Last administered on 05/07/16 22:01; Admin Dose 18 UNIT; Start 05/06/16 at 21:00 Assessment/Plan Additional Assessment/Plan IMP: 1. Chronic hypercapnic/hypoxemic resp insufficiency 2. COPD 3. CHF RECS: 1. BD's/CPT/CS/Abx 2. Diuresis; strict I/O's 3. Titrate FiO2 to SpO2 88-92% LISSETTE ATKINS MD May 08, 2016 17:55
[2016-05-08] MEDS ORDERED: ACETAZOLAMIDE 250 MG TAB PO ONE (18:30)
--- NOTE | 2016-05-08 18:31 | CONS ---
Date/Time of Note Date/Time of Note DATE: 05/08/16 TIME: 18:16 Assessment/Plan Assessment/Plan Additional Assessment/Plan 1. Hypercapnic and hypoxic respiratory failure secondary to a combination of congestive heart failure and chronic obstructive pulmonary disease. 2. Severe metabolic alkalosis with possible diastolic heart failure. HCo3 39 - improved to 35 with IV diomax on 05/07 3. Diabetes with hyperglycemia. 4. Atrial fibrillation on anticoagulation with Eliquis. 5. Systemic inflammatory response syndrome with leukocytosis and tachycardia. Plan: s/p diomax 500mg IV x 1 dose for severe metabolic alkalosis on 05/06/16- now HCo3 35 will give diomax 250mg PO x 1 dose today continue Bumex to 1 mg po daily - Cr slightly bumped, will monitor it ( pt was on Bumex 2 mg AM and 1 mg pM at home) will follow up Consultation Date/Type/Reason Admit Date/Time May 03, 2016 at 21:44 Initial Consult Date Apr Type of Consultation: NEPHROLOGY Reason for Consultation severe metabolic alkalosis, on diuretics for CHF Referring Provider: YENNIFER CALABRESE MD 24 HR Interval Summary Free Text/Dictation pt on High oxygen 4 L, denies chest pain, still SOB off oxygen, Afebrile, Exam/Review of Systems Vital Signs Vitals Vital Signs Date Time Temp Pulse Resp B/P Pulse Ox O2 Delivery O2 Flow Rate FiO2 05/08/16 16:09 65 05/08/16 16:00 97.8 17 141/100 100 05/08/16 07:53 Nasal Cannula 4.0 Intake and Output 05/07/16 05/07/16 05/08/16 15:00 23:00 07:00 Intake Total 50 ml 400 ml 390 ml Output Total 1200 ml Balance 50 ml -800 ml 390 ml Exam H EENT examination; supple neck, JVD difficult to see because of short neck. LUNG; diminished breath sounds throughout. HEART: S1-S2 audible, regular rhythm. No murmurs. ABDOMEN; protuberant, nontender. Bowel sounds audible. Extremities: trace pitting edema in lower extremities bilaterally. 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 Results Result Diagram: 05/08/16 0435 05/08/16 0435 Results 24 hrs Laboratory Tests Test 05/07/16 20:11 05/07/16 21:52 05/08/16 03:32 05/08/16 04:35 Bedside Glucose 248 H 231 H 217 Anion Gap 13 Basophils # 0.0 Basophils % 0.3 Blood Morphology Comment Blood Urea Nitrogen 24 H Calcium Level 9.1 Carbon Dioxide Level 35 H Chloride Level 95 L Creatinine 0.91 Eosinophils # 0.1 Eosinophils % 0.9 Glucose Level 205 Hematocrit 39.1 Hemoglobin 12.6 Lymphocytes # 2.0 Lymphocytes % 13.7 L Mean Corpuscular Hemoglobin 28.2 L Mean Corpuscular Hemoglobin Concent 32.3 Mean Corpuscular Volume 87.3 Mean Platelet Volume 7.8 Monocytes # 0.5 Monocytes % 3.3 Neutrophils # 12.1 H Neutrophils % 81.8 H Nucleated Red Blood Cells # 0.0 Nucleated Red Blood Cells % 0.0 Platelet Count 350 Potassium Level 4.6 Red Blood Count 4.48 Red Cell Distribution Width 18.0 H Sodium Level 138 White Blood Count 14.8 #H Test 05/08/16 08:26 05/08/16 12:13 05/08/16 17:24 Bedside Glucose 218 218 293 H Medications Medications Current Medications Levofloxacin/ Dextrose (Levaquin 500mg/ D5W 100 ml (Pmx)) 100 ml @ 100 mls/hr Q24H IVPB Last administered on 05/08/16 06:15; Admin Dose 100 MLS/HR; Start at 06:00 Ondansetron HCl (Zofran Inj) 4 mg Q4H PRN IV NAUSEA AND/OR VOMITING; Start at 01:30 Apixaban (Eliquis) 5 mg BID PO Last administered on 05/08/16 08:52; Admin Dose 5 MG; Start 05/04/16 at 09:00 Atorvastatin Calcium (Lipitor) 40 mg HS PO Last administered on 05/07/16 21:57 ; Admin Dose 40 MG; Start 05/04/16 at 21:00 Digoxin (Digoxin) 0.25 mg DAILY@13 PO Last administered on 05/08/16 12:20; Admin Dose 0.25 MG; Start 05/04/16 at 13:00 Diltiazem HCl (Cardizem Cd) 240 mg DAILY PO Last administered on 05/08/16 08: 51; Admin Dose 240 MG; Start 05/04/16 at 09:00 Metoprolol Tartrate (Lopressor) 25 mg DAILY PO Last administered on 05/08/16 08:52; Admin Dose 25 MG; Start 05/04/16 at 09:00 Spironolactone (Aldactone) 25 mg DAILY PO Last administered on 05/08/16 08:50 ; Admin Dose 25 MG; Start 05/04/16 at 09:00 Miscellaneous Information (Flu Vaccine Previously Dispensed) FLU VACCINE PREVIOU... NOTE PRN XX NOTE; Start 05/04/16 at 03:30 Diagnostic Test (Pha) (Accucheck) 1 ea 02 XX Last administered on 05/07/16 02: 15; Admin Dose 1 EA; Start 05/05/16 at 02:00 Diagnostic Test (Pha) (Accucheck) 1 ea IACHS XX Last administered on 05/08/16 17:26; Admin Dose 1 EA; Start 05/04/16 at 11:30 Miscellaneous Information 1 ea NOTE XX ; Start 05/04/16 at 13:00 Glucose (Glutose) 15 gm Q15M PRN PO DECREASED GLUCOSE; Start 05/04/16 at 13:00 Glucose (Glutose) 22.5 gm Q15M PRN PO DECREASED GLUCOSE; Start 05/04/16 at 13: 00 Dextrose (D50w Syringe) 25 ml Q15M PRN IV DECREASED GLUCOSE; Start 05/04/16 at 13:00 Dextrose (D50w Syringe) 50 ml Q15M PRN IV DECREASED GLUCOSE; Start 05/04/16 at 13:00 Glucagon (Glucagen) 1 mg Q15M PRN IM DECREASED GLUCOSE; Start 05/04/16 at 13:00 Glucose (Glutose) 15 gm Q15M PRN BUCCAL DECREASED GLUCOSE; Start 05/04/16 at 13 :00 Bumetanide 1 mg 1 mg DAILY PO Last administered on 05/08/16 08:51; Admin Dose 1 MG; Start 05/07/16 at 09:00 Cefepime HCl (Maxipime 1gm/50 ml (Pmx)) 50 ml @ 100 mls/hr Q12 IVPB Last administered on 05/08/16 08:54; Admin Dose 100 MLS/HR; Start 05/06/16 at 21:00 Insulin Glargine (Lantus) 18 unit QHS SC Last administered on 2/18/17at 22:01; Admin Dose 18 UNIT; Start 05/06/16 at 21:00 MARIBEL COLORADO MD May 08, 2016 18:31
[2016-05-08] MEDS: ATORVASTATIN 40 MG TAB PO SCH (21:11)
[2016-05-08] MEDS: INSULIN GLARGINE [LANtus] 3 ML PEN SC SCH (21:15)
[2016-05-09] VITALS (13 sets, daily range): BP systolic 95–118; BP diastolic 51–66; PULSE 74–160; RESP 17–20
[2016-05-09] MEDS: ACCUCHECK XX SCH ×5 (02:00→21:43)
[2016-05-09] MEDS: LEVALBUTEROL (NEB) 1.25 MG/0.5 ML AMP HHN SCH ×6 (03:08→20:39)
[2016-05-09] MEDS: IPRATROPIUM (NEB) 0.5 MG/2.5 ML AMP HHN SCH ×6 (03:08→20:39)
[2016-05-09] MEDS: LEVOFLOXACIN 500MG/D5W (PMX) 100 ML IVPB SCH (06:14)
[2016-05-09 07:12] LABS: BASOPHIL # 0.1 10^3/ul (0.0-0.1); BASOPHILS % 0.4 % (0.0-2.0); EOSINOPHILS # 0.1 10^3/ul (0.0-0.5); EOSINOPHILS % 0.8 % (0.0-7.0); HEMOGLOBIN 13.1 g/dl (12.0-16.0); LYMPHOCYTES # 2.2 10^3/ul (0.8-2.9); LYMPHOCYTES % 15.4 % (15.0-51.0); MEAN CORPUSCULAR HEMOGLOBIN 27.7 pg (29.0-33.0); MEAN CORPUSCULAR HGB CONC 31.9 g/dl (32.0-37.0); MEAN PLATELET VOLUME 7.8 fl (7.4-10.4); MONOCYTE # 0.6 10^3/ul (0.3-0.9); MONOCYTES % 4.5 % (0.0-11.0); NEUTROPHIL # 11.1 10^3/ul (1.6-7.5); NEUTROPHILS % 78.9 % (39.0-77.0); PLATELET COUNT 369 10^3/UL (140-440); RED BLOOD COUNT 4.71 10^6/ul (4.20-5.40); RED CELL DISTRIBUTION WIDTH 17.5 % (11.5-14.5)
[2016-05-09 07:14] LABS: CONDITION 1; LH ANALYZER COMMENTS 1
[2016-05-09] MEDS: APIXABAN 5 MG TABLET PO SCH ×2 (08:19→21:12)
[2016-05-09] MEDS: SPIRONOLACTONE 25 MG TAB PO SCH (08:21)
[2016-05-09] MEDS: BUMETANIDE 1 MG TAB PO SCH (08:21)
[2016-05-09] MEDS: DILTIAZEM (CD) 240 MG CAP PO SCH (08:21)
[2016-05-09] MEDS: INSULIN ASPART [NOVOLOG] 3 ML PEN SC SCH ×7 (08:26→21:29)
[2016-05-09] MEDS: METOPROLOL 25 MG TAB PO SCH (08:28)
[2016-05-09] MEDS: CEFEPIME 1GM/50 ML (PMX) 50 ML IVPB SCH ×2 (08:30→21:12)
[2016-05-09] MEDS: DIGOXIN 0.25 MG TAB PO SCH (12:13)
--- NOTE | 2016-05-09 14:21 | CONS ---
Date/Time of Note Date/Time of Note DATE: 05/09/16 TIME: 14:19 Assessment/Plan Assessment/Plan Additional Assessment/Plan Assessment and recommendation; next 1. Patient admitted with congestive heart failure as well as bilateral pneumonia with significant clinical improvement. Continue current treatment, obtain a follow-up chest x-ray. Consultation Date/Type/Reason Admit Date/Time May 03, 2016 at 21:44 Type of Consultation: Pulmonary Referring Provider: YENNIFER CALABRESE MD 24 HR Interval Summary Free Text/Dictation Patient condition is stable. Denies any shortness of breath. Any chest pain. Cough, sputum production. Any fever or chills. General examination; elderly lady currently in no distress sitting in a chair by bedside. Exam/Review of Systems Vital Signs Vitals Vital Signs Date Time Temp Pulse Resp B/P Pulse Ox O2 Delivery O2 Flow Rate FiO2 05/09/16 12:20 90 05/09/16 12:02 22 98 Nasal Cannula 4.0 05/09/16 11:56 98.1 98/66 Intake and Output 05/08/16 05/08/16 05/09/16 15:00 23:00 07:00 Intake Total 2000 ml 450 ml Output Total 1800 ml Balance 200 ml 450 ml Exam HEENT examination; supple neck, no JVD. No lymphadenopathy. Pharynx is clear. Chest examination; diminished breath sound bilaterally. S1-S2 audible, no murmurs. Regular rhythm. Abdomen examination; soft, protuberant. Nontender. No organomegaly. Bowel sounds audible. Extremity examination; no peripheral edema. 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 Results Result Diagram: 05/09/16 0620 05/08/16 0435 Results 24 hrs Laboratory Tests Test 05/08/16 17:24 05/08/16 21:09 05/09/16 03:03 05/09/16 06:20 Bedside Glucose 293 H 241 H 203 Basophils # 0.1 Basophils % 0.4 Blood Morphology Comment Eosinophils # 0.1 Eosinophils % 0.8 Hematocrit 41.0 Hemoglobin 13.1 Lymphocytes # 2.2 Lymphocytes % 15.4 Mean Corpuscular Hemoglobin 27.7 L Mean Corpuscular Hemoglobin Concent 31.9 L Mean Corpuscular Volume 87.0 Mean Platelet Volume 7.8 Monocytes # 0.6 Monocytes % 4.5 Neutrophils # 11.1 H Neutrophils % 78.9 H Nucleated Red Blood Cells # 0.0 Nucleated Red Blood Cells % 0.0 Platelet Count 369 Red Blood Count 4.71 Red Cell Distribution Width 17.5 H White Blood Count 14.0 H Test 05/09/16 07:26 05/09/16 11:20 Bedside Glucose 211 294 H Medications Medications Current Medications Levofloxacin/ Dextrose (Levaquin 500mg/ D5W 100 ml (Pmx)) 100 ml @ 100 mls/hr Q24H IVPB Last administered on 05/09/16 06:14; Admin Dose 100 MLS/HR; Start at 06:00 Ondansetron HCl (Zofran Inj) 4 mg Q4H PRN IV NAUSEA AND/OR VOMITING; Start at 01:30 Apixaban (Eliquis) 5 mg BID PO Last administered on 05/09/16 08:19; Admin Dose 5 MG; Start 05/04/16 at 09:00 Atorvastatin Calcium (Lipitor) 40 mg HS PO Last administered on 05/08/16 21:11 ; Admin Dose 40 MG; Start 05/04/16 at 21:00 Digoxin (Digoxin) 0.25 mg DAILY@13 PO Last administered on 05/09/16 12:13; Admin Dose 0.25 MG; Start 05/04/16 at 13:00 Diltiazem HCl (Cardizem Cd) 240 mg DAILY PO Last administered on 05/09/16 08: 21; Admin Dose 240 MG; Start 05/04/16 at 09:00 Metoprolol Tartrate (Lopressor) 25 mg DAILY PO Last administered on 05/08/16 08:52; Admin Dose 25 MG; Start 05/04/16 at 09:00 Spironolactone (Aldactone) 25 mg DAILY PO Last administered on 05/09/16 08:21 ; Admin Dose 25 MG; Start 05/04/16 at 09:00 Miscellaneous Information (Flu Vaccine Previously Dispensed) FLU VACCINE PREVIOU... NOTE PRN XX NOTE; Start 05/04/16 at 03:30 Diagnostic Test (Pha) (Accucheck) 1 ea 02 XX Last administered on 05/07/16 02: 15; Admin Dose 1 EA; Start 05/05/16 at 02:00 Diagnostic Test (Pha) (Accucheck) 1 ea [facility] XX Last administered on 05/09/16 11:24; Admin Dose 1 EA; Start 05/04/16 at 11:30 Miscellaneous Information 1 ea NOTE XX ; Start 05/04/16 at 13:00 Glucose (Glutose) 15 gm Q15M PRN PO DECREASED GLUCOSE; Start 05/04/16 at 13:00 Glucose (Glutose) 22.5 gm Q15M PRN PO DECREASED GLUCOSE; Start 05/04/16 at 13: 00 Dextrose (D50w Syringe) 25 ml Q15M PRN IV DECREASED GLUCOSE; Start 05/04/16 at 13:00 Dextrose (D50w Syringe) 50 ml Q15M PRN IV DECREASED GLUCOSE; Start 05/04/16 at 13:00 Glucagon (Glucagen) 1 mg Q15M PRN IM DECREASED GLUCOSE; Start 05/04/16 at 13:00 Glucose (Glutose) 15 gm Q15M PRN BUCCAL DECREASED GLUCOSE; Start 05/04/16 at 13 :00 Bumetanide 1 mg 1 mg DAILY PO Last administered on 05/09/16 08:21; Admin Dose 1 MG; Start 05/07/16 at 09:00 Cefepime HCl (Maxipime 1gm/50 ml (Pmx)) 50 ml @ 100 mls/hr Q12 IVPB Last administered on 05/09/16 08:30; Admin Dose 100 MLS/HR; Start 05/06/16 at 21:00 Insulin Glargine (Lantus) 18 unit QHS SC Last administered on 05/08/16 21:15; Admin Dose 18 UNIT; Start 05/06/16 at 21:00 Hydrocortisone (Hydrocortisone 1% Oint) 1 applic BID TOP ; Start 05/09/16 at 14: 00 MAGALYS CHAPIN May 09, 2016 14:21
--- NOTE | 2016-05-09 15:01 | RADRPT ---
PROCEDURE: XR Chest. CLINICAL INDICATION: chf and pneumomia TECHNIQUE: Single frontal chest x-ray. COMPARISON: 05/03/2016 FINDINGS: There is decreased left lower lung consolidation and effusion since previous exam. Bibasilar atelec tasis remains. . There are no new infiltrates or edema. Calcific atherosclerosis of the aorta is pr esent.. Cardiomegaly is present.. The osseous structures are intact. IMPRESSION: Cardiomegaly with calcified aorta. Decreased left pulmonary consolidation and effusion. Bilateral basilar atelectasis. RPTAT: GG .Fritz Call MD, Date Time Electronically viewed and signed by .Fritz Call MD, on 05/09/2016 15:01 .L/
[2016-05-09] MEDS ORDERED: METO-448 PO (17:38)
[2016-05-09] MEDS ORDERED: POTA20PA23 PO (17:38)
[2016-05-09] MEDS ORDERED: LANT3I SC (17:38)
[2016-05-09] MEDS ORDERED: LEVA1.2523 HHN (17:38)
[2016-05-09] MEDS ORDERED: Ipratropium 0.02% (Neb) HHN (17:38)
[2016-05-09] MEDS ORDERED: ADV25050 INHALATION (17:38)
[2016-05-09] MEDS ORDERED: BUME1TAB18 PO (17:38)
[2016-05-09] MEDS ORDERED: NOVO3I SC (17:38)
--- NOTE | 2016-05-09 17:40 | PDOCDIS ---
Discharge Instructions DIAGNOSIS Discharge Diagnosis: COPD exacerbation, CHF exacerbation CONDITION Patient Condition: Stable HOME CARE INSTRUCTIONS: Special Diet: cardiac,1800 ACTIVITY: Activity Restrictions: Slowly Increase Activity Rest between Activity FOLLOW UP/APPOINTMENTS Appointments * Followup with your primary doctor within the next 1week. * Review your medication list with your nurse before leaving and if you need new prescriptions please let your nurse know. * I have made changes to your home medications or given you new prescriptions, please let your primary doctor know as well. * Stay compliant with your medications and report any side effects to your PCP or pharmacist. * Return to the ER if you have any concerns and cannot reach your doctors or call your insurance company, they usually have a nurse that can help you. REFERRALS Agency Name and Phone Number: [facility] BIBI TSANG May 09, 2016 17:40
[2016-05-09] MEDS: HYDROCORTISONE 1% 28.35 GM OINT TOP SCH ×2 (18:29→21:25)
[2016-05-09] MEDS: ATORVASTATIN 40 MG TAB PO SCH (21:12)
[2016-05-09] MEDS: INSULIN GLARGINE [LANtus] 3 ML PEN SC SCH (21:42)
--- NOTE | 2016-05-09 22:23 | CONS ---
Date/Time of Note Date/Time of Note DATE: 05/09/16 TIME: 22:20 Assessment/Plan Assessment/Plan Additional Assessment/Plan 1. Hypercapnic and hypoxic respiratory failure secondary to a combination of congestive heart failure and chronic obstructive pulmonary disease. 2. Severe metabolic alkalosis with possible diastolic heart failure. HCo3 39 - improved to 35 with IV diomax on 05/07 3. Diabetes with hyperglycemia. 4. Atrial fibrillation on anticoagulation with Eliquis. 5. Systemic inflammatory response syndrome with leukocytosis and tachycardia. Plan: s/p diomax 500mg IV x 1 dose for severe metabolic alkalosis on 05/06/16- ns/p diomax 250mg PO x 1 dose on 05/08/16- no labs today to assess for HCO3 continue Bumex to 1 mg po daily - Cr slightly bumped, will monitor it ( pt was on Bumex 2 mg AM and 1 mg pM at home) will follow up Consultation Date/Type/Reason Admit Date/Time May 03, 2016 at 21:44 Initial Consult Date Apr Type of Consultation: NEPHROLOGY Reason for Consultation severe metabolic alkalosis, on diuretics therapy for CHF Referring Provider: YENNIFER CALABRESE MD 24 HR Interval Summary Free Text/Dictation pt stable, no labs today to assess for HCO3 Exam/Review of Systems Vital Signs Vitals Vital Signs Date Time Temp Pulse Resp B/P Pulse Ox O2 Delivery O2 Flow Rate FiO2 05/09/16 20:43 79 05/09/16 20:39 20 98 Nasal Cannula 4.0 05/09/16 19:49 98.2 118/56 Intake and Output 05/08/16 05/08/16 05/09/16 15:00 23:00 07:00 Intake Total 2000 ml 450 ml Output Total 1800 ml Balance 200 ml 450 ml Exam H EENT examination; supple neck, JVD difficult to see because of short neck. LUNG; diminished breath sounds throughout. HEART: S1-S2 audible, regular rhythm. No murmurs. ABDOMEN; protuberant, nontender. Bowel sounds audible. Extremities: trace pitting edema in lower extremities bilaterally. 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 Results Result Diagram: 05/09/16 0620 05/08/16 0435 Results 24 hrs Laboratory Tests Test 05/09/16 03:03 05/09/16 06:20 05/09/16 07:26 05/09/16 11:20 Bedside Glucose 203 211 294 H Basophils # 0.1 Basophils % 0.4 Blood Morphology Comment Eosinophils # 0.1 Eosinophils % 0.8 Hematocrit 41.0 Hemoglobin 13.1 Lymphocytes # 2.2 Lymphocytes % 15.4 Mean Corpuscular Hemoglobin 27.7 L Mean Corpuscular Hemoglobin Concent 31.9 L Mean Corpuscular Volume 87.0 Mean Platelet Volume 7.8 Monocytes # 0.6 Monocytes % 4.5 Neutrophils # 11.1 H Neutrophils % 78.9 H Nucleated Red Blood Cells # 0.0 Nucleated Red Blood Cells % 0.0 Platelet Count 369 Red Blood Count 4.71 Red Cell Distribution Width 17.5 H White Blood Count 14.0 H Test 05/09/16 17:09 05/09/16 21:10 Bedside Glucose 276 H 185 Medications Medications Current Medications Levofloxacin/ Dextrose (Levaquin 500mg/ D5W 100 ml (Pmx)) 100 ml @ 100 mls/hr Q24H IVPB Last administered on 05/09/16 06:14; Admin Dose 100 MLS/HR; Start at 06:00 Ondansetron HCl (Zofran Inj) 4 mg Q4H PRN IV NAUSEA AND/OR VOMITING; Start at 01:30 Apixaban (Eliquis) 5 mg BID PO Last administered on 05/09/16 21:12; Admin Dose 5 MG; Start 05/04/16 at 09:00 Atorvastatin Calcium (Lipitor) 40 mg HS PO Last administered on 05/09/16 21:12 ; Admin Dose 40 MG; Start 05/04/16 at 21:00 Digoxin (Digoxin) 0.25 mg DAILY@13 PO Last administered on 05/09/16 12:13; Admin Dose 0.25 MG; Start 05/04/16 at 13:00 Diltiazem HCl (Cardizem Cd) 240 mg DAILY PO Last administered on 05/09/16 08: 21; Admin Dose 240 MG; Start 05/04/16 at 09:00 Metoprolol Tartrate (Lopressor) 25 mg DAILY PO Last administered on 05/08/16 08:52; Admin Dose 25 MG; Start 05/04/16 at 09:00 Spironolactone (Aldactone) 25 mg DAILY PO Last administered on 05/09/16 08:21 ; Admin Dose 25 MG; Start 05/04/16 at 09:00 Miscellaneous Information (Flu Vaccine Previously Dispensed) FLU VACCINE PREVIOU... NOTE PRN XX NOTE; Start 05/04/16 at 03:30 Diagnostic Test (Pha) (Accucheck) 1 ea 02 XX Last administered on 05/07/16 02: 15; Admin Dose 1 EA; Start 05/05/16 at 02:00 Diagnostic Test (Pha) (Accucheck) 1 ea IACHS XX Last administered on 05/09/16 21:43; Admin Dose 1 EA; Start 05/04/16 at 11:30 Miscellaneous Information 1 ea NOTE XX ; Start 05/04/16 at 13:00 Glucose (Glutose) 15 gm Q15M PRN PO DECREASED GLUCOSE; Start 05/04/16 at 13:00 Glucose (Glutose) 22.5 gm Q15M PRN PO DECREASED GLUCOSE; Start 05/04/16 at 13: 00 Dextrose (D50w Syringe) 25 ml Q15M PRN IV DECREASED GLUCOSE; Start 05/04/16 at 13:00 Dextrose (D50w Syringe) 50 ml Q15M PRN IV DECREASED GLUCOSE; Start 05/04/16 at 13:00 Glucagon (Glucagen) 1 mg Q15M PRN IM DECREASED GLUCOSE; Start 05/04/16 at 13:00 Glucose (Glutose) 15 gm Q15M PRN BUCCAL DECREASED GLUCOSE; Start 05/04/16 at 13 :00 Bumetanide 1 mg 1 mg DAILY PO Last administered on 05/09/16 08:21; Admin Dose 1 MG; Start 05/07/16 at 09:00 Cefepime HCl (Maxipime 1gm/50 ml (Pmx)) 50 ml @ 100 mls/hr Q12 IVPB Last administered on 05/09/16 21:12; Admin Dose 100 MLS/HR; Start 05/06/16 at 21:00 Insulin Glargine (Lantus) 18 unit QHS SC Last administered on 05/09/16 21:42; Admin Dose 18 UNIT; Start 05/06/16 at 21:00 Hydrocortisone (Hydrocortisone 1% Oint) 1 applic BID TOP Last administered on 21:25; Admin Dose 1 APPLIC; Start 05/09/16 at 14:00 MARIBEL COLORADO MD May 09, 2016 22:23
[2016-05-10] VITALS (11 sets, daily range): BP systolic 112–151; BP diastolic 55–79; PULSE 66–130; RESP 15–20
[2016-05-10] MEDS: IPRATROPIUM (NEB) 0.5 MG/2.5 ML AMP HHN SCH ×5 (01:00→16:46)
[2016-05-10] MEDS: LEVALBUTEROL (NEB) 1.25 MG/0.5 ML AMP HHN SCH ×5 (01:00→16:46)
--- NOTE | 2016-05-10 01:36 | DS ---
DATE OF ADMISSION: 05/03/2016 DATE OF DISCHARGE: 05/09/2016 PRESENTING COMPLAINT: Shortness of breath and cough. ADMISSION DIAGNOSES: 1. Hypercapnic hypoxic respiratory failure. 2. Chronic obstructive pulmonary disease exacerbation. 3. Diastolic congestive heart failure exacerbation. 4. Diabetes with hyperglycemia. 5. Atrial fibrillation. 6. Systemic inflammatory response syndrome with leukocytosis and tachycardia. CONSULTANTS ON THE CASE: 1. Dr. Mendoza Drake, for pulmonary 2. Dr. Demetrius Felpie, for nephrology. INTERVENTIONS: Include the following: A chest x-ray on arrival 05/03/2016 showed increased cardiom egaly and vascular congestion. She had a CT scan of the chest that showed a small right-sided pleur al effusion and a mild to moderate left-sided pleural effusion with a left lower lobe, persistent co nsolidation. The possibility of an endobronchial lesion cannot be excluded, consider bronchoscopy if warranted. 2. Moderate cardiomegaly with multi-chamber enlargement. 3. Left adrenal thickening and a left adrenal nodule which is stable. 4. She had a chest x-ray 05/17/2016 that showed cardiomegaly with calcified aorta, decreased left p ulmonary consolidation and effusion and bilateral bibasilar atelectasis. She did not have an echoca rdiogram on this admission. However, just recently in February she had a 2D echocardiogram. Her la st echo was November 14, 2015 and at that time it had showed normal left ventricular systolic function with moderate concentric left ventricular hypertrophy, severe enlargement of left ventricle cavity, ejection fraction visually estimated at 55%. Stage I diastolic dysfunction with mild enlargement of the right ventricle. Mild right ventricular hypokinesis. Estimated peak PA systolic pressure of 4 5, mild tricuspid regurgitation and a moderate pulmonary hypertension. HOSPITAL COURSE: Full details are available in the chart for review. In summary, this pleasant lad y had presented with shortness of breath and was diagnosed with both congestive heart failure exacer bation as well as a COPD exacerbation. The patient has a history of chronic respiratory failure and is on home oxygen at 4 liters per minute. She was aggressively managed with pulmonology assistance and that was at the end of her hospitalization, nephrology assistance because of a slight bump in h er creatinine levels. She, however, did well with diuresis using Bumex and steroid therapy as well as scheduled bronchodilator therapy. As of today, the patient is ambulant and she is requesting to b e discharged home. Her blood glucose control is still mildly suboptimal but this is likely as a res ult of steroid therapy as well. I have spoken with her in detail. She is being cared for by her son 's at home and she has a caregiver who is contracted on the who comes to the house to keep a c lose eye on her. She is on home oxygen at 4 liters and she does have close followup with her pulmon ologist. I spoke with the executive meeting manager on the case, and he is okay with discharging her. In my opi nion, the patient is stable for outpatient management at this point. DISPOSITION: Will be to home with resumed home health therapy for assistance with oxygen care, acti vity will be as tolerated. The patient has been seen to ambulate around the hallway in the hospital multiple times. DISCHARGE MEDICATIONS: As follows: 1. Eliquis 5 mg p.o. b.i.d. 2. Lipitor 40 mg p.o. at bedtime. 3. Digoxin 0.25 mg p.o. daily. 4. Bumex 1 mg p.o. daily. 5. Augmentin DS 1 tablet b.i.d. for 7 days. 6. Cardizem-CD 240 mg p.o. daily. 7. Lantus will be increased to 25 units subcutaneous at bedtime. 8. NovoLog 10 units subcu with meals. 9. Levaquin 500 mg p.o. daily also for 8 days. 10. Xopenex every 4 hours. 11. Ipratropium every 4 hours as well and every 2 hours as needed. 12. Aldactone 25 p.o. daily. 13. Metoprolol 25 p.o. b.i.d. 14. Potassium 20 mEq p.o. daily. 15. Advair 250/50 one inhalation b.i.d. FINAL DIAGNOSES: As follows: 1. Acute hypercapnic hypoxic respiratory failure that is now resolved. 2. Chronic hypoxic respiratory failure. Patient is stable at baseline. 3. Chronic obstructive pulmonary disease exacerbation, improved. 4. Diastolic and systolic congestive heart failure, now compensated. 5. Diabetes type 2 with hyperglycemia, improved control. 6. Chronic atrial fibrillation on anticoagulation with good rate control. 7. Systemic inflammatory response syndrome, now resolved. 8. Morbid obesity with a BMI of 42.1. The patient has been on a low calorie diet and is status pos t diabetic education. 9. High blood pressure with good control. 10. Dyslipidemia, on statin. For further information, please review the patient's chart and my orders. Time spent on discharge and coordination was more than 35 minutes. Dictated By: BIBI TSANG MD BA/NTS Conf#: [id number] DID#: [id number]
[2016-05-10] MEDS: ACCUCHECK XX SCH ×4 (02:00→17:12)
[2016-05-10 07:30] LABS: ALBUMIN 3.5 g/dl (3.3-4.9); BASOPHILS % 0.3 % (0.0-2.0); EOSINOPHILS # 0.1 10^3/ul (0.0-0.5); EOSINOPHILS % 0.8 % (0.0-7.0); HEMATOCRIT 39.7 % (37.0-47.0); HEMOGLOBIN 12.9 g/dl (12.0-16.0); LYMPHOCYTES # 1.9 10^3/ul (0.8-2.9); LYMPHOCYTES % 13.4 % (15.0-51.0); MEAN CORPUSCULAR HEMOGLOBIN 28.2 pg (29.0-33.0); MEAN CORPUSCULAR HGB CONC 32.6 g/dl (32.0-37.0); MEAN CORPUSCULAR VOLUME 86.4 fl (82.0-101.0); MONOCYTE # 0.7 10^3/ul (0.3-0.9); MONOCYTES % 4.8 % (0.0-11.0); NEUTROPHIL # 11.7 10^3/ul (1.6-7.5); NEUTROPHILS % 80.7 % (39.0-77.0); PLATELET COUNT 376 10^3/UL (140-440); RED CELL DISTRIBUTION WIDTH 17.5 % (11.5-14.5); UNCORRECTED WBC 14.5 10^3/ul (4.8-10.8); WHITE BLOOD COUNT 14.5 10^3/ul (4.8-10.8)
[2016-05-10 07:31] LABS: POTASSIUM 4.4 mmol/L (3.5-5.1)
[2016-05-10 07:33] LABS: ALBUMIN/GLOBULIN RATIO 1.09; BILIRUBIN,INDIRECT 0.2 mg/dl (0-1.1); BILIRUBIN,TOTAL 0.2 mg/dl (0.2-1.3); CREATININE 0.76 mg/dl (0.44-1.00); TOTAL PROTEIN 6.7 g/dl (6.1-8.1)
[2016-05-10 07:34] LABS: CALCIUM 9.1 mg/dl (8.4-10.2)
[2016-05-10 07:46] LABS: CONDITION 1; LH ANALYZER COMMENTS 1
[2016-05-10] MEDS: LEVOFLOXACIN 500MG/D5W (PMX) 100 ML IVPB SCH (08:01)
[2016-05-10] MEDS: BUMETANIDE 1 MG TAB PO SCH (08:37)
[2016-05-10] MEDS: DILTIAZEM (CD) 240 MG CAP PO SCH (08:37)
[2016-05-10] MEDS: APIXABAN 5 MG TABLET PO SCH (08:38)
[2016-05-10] MEDS: HYDROCORTISONE 1% 28.35 GM OINT TOP SCH (08:38)
[2016-05-10] MEDS: METOPROLOL 25 MG TAB PO SCH (08:38)
[2016-05-10] MEDS: SPIRONOLACTONE 25 MG TAB PO SCH (08:38)
[2016-05-10] MEDS: INSULIN ASPART [NOVOLOG] 3 ML PEN SC SCH ×6 (08:39→17:16)
[2016-05-10] MEDS: CEFEPIME 1GM/50 ML (PMX) 50 ML IVPB SCH (09:22)
[2016-05-10] MEDS: DIGOXIN 0.25 MG TAB PO SCH (12:01)
--- NOTE | 2016-05-10 12:02 | CONS ---
Date/Time of Note Date/Time of Note DATE: 05/10/16 TIME: 12:00 Assessment/Plan Assessment/Plan Additional Assessment/Plan 1. Hypercapnic and hypoxic respiratory failure secondary to a combination of congestive heart failure and chronic obstructive pulmonary disease. 2. Severe metabolic alkalosis with possible diastolic heart failure. HCo3 39 - improved to 35 with IV diomax on 05/07 3. Diabetes with hyperglycemia. 4. Atrial fibrillation on anticoagulation with Eliquis. 5. Systemic inflammatory response syndrome with leukocytosis and tachycardia. Plan: s/p diomax 500mg IV x 1 dose for severe metabolic alkalosis on 05/06/16- ns/p diomax 250mg PO x 1 dose on 05/08/16- HCo3 33 continue Bumex to 1 mg po daily - Cr slightly bumped, will monitor it ( pt was on Bumex 2 mg AM and 1 mg pM at home) will follow up Consultation Date/Type/Reason Admit Date/Time May 03, 2016 at 21:44 Initial Consult Date Apr Type of Consultation: NEPHROLOGY Reason for Consultation metabolic alkalosis, S/p OSMIN , on diuretic for CHF Referring Provider: YENNIFER CALABRESE MD 24 HR Interval Summary Free Text/Dictation HCO3 33, no acute events, BP stable Exam/Review of Systems Vital Signs Vitals Vital Signs Date Time Temp Pulse Resp B/P Pulse Ox O2 Delivery O2 Flow Rate FiO2 05/10/16 11:49 97.8 77 18 115/56 94 05/10/16 08:15 Nasal Cannula 4.0 Exam H EENT examination; supple neck, JVD difficult to see because of short neck. LUNG; diminished breath sounds throughout. HEART: S1-S2 audible, regular rhythm. No murmurs. ABDOMEN; protuberant, nontender. Bowel sounds audible. Extremities: trace pitting edema in lower extremities bilaterally. COUNTER CONTROL OPERATOR examination; no focal deficit. Results Result Diagram: 05/10/16 0606 05/10/16 0606 Results 24 hrs Laboratory Tests Test 05/09/16 17:09 05/09/16 21:10 05/10/16 06:06 05/10/16 08:17 Bedside Glucose 276 H 185 197 Alanine Aminotransferase (ALT/SGPT) 31 Albumin 3.5 Albumin/Globulin Ratio 1.09 Alkaline Phosphatase 174 H Anion Gap 13 Aspartate Amino Transf (AST/SGOT) 18 Basophils # 0.0 Basophils % 0.3 Blood Morphology Comment Blood Urea Nitrogen 20 Calcium Level 9.1 Carbon Dioxide Level 33 H Chloride Level 97 Creatinine 0.76 Direct Bilirubin 0.00 Eosinophils # 0.1 Eosinophils % 0.8 Globulin 3.20 Glucose Level 190 Hematocrit 39.7 Hemoglobin 12.9 Indirect Bilirubin 0.2 Lymphocytes # 1.9 Lymphocytes % 13.4 L Mean Corpuscular Hemoglobin 28.2 L Mean Corpuscular Hemoglobin Concent 32.6 Mean Corpuscular Volume 86.4 Mean Platelet Volume 8.0 Monocytes # 0.7 Monocytes % 4.8 Neutrophils # 11.7 H Neutrophils % 80.7 H Nucleated Red Blood Cells # 0.0 Nucleated Red Blood Cells % 0.0 Platelet Count 376 Potassium Level 4.4 Red Blood Count 4.60 Red Cell Distribution Width 17.5 H Sodium Level 139 Total Bilirubin 0.2 Total Protein 6.7 White Blood Count 14.5 H Test 05/10/16 11:40 Bedside Glucose 216 Medications Medications Current Medications Levofloxacin/ Dextrose (Levaquin 500mg/ D5W 100 ml (Pmx)) 100 ml @ 100 mls/hr Q24H IVPB Last administered on 05/10/16 08:01; Admin Dose 100 MLS/HR; Start at 06:00 Ondansetron HCl (Zofran Inj) 4 mg Q4H PRN IV NAUSEA AND/OR VOMITING; Start at 01:30 Apixaban (Eliquis) 5 mg BID PO Last administered on 05/10/16 08:38; Admin Dose 5 MG; Start 05/04/16 at 09:00 Atorvastatin Calcium (Lipitor) 40 mg HS PO Last administered on 05/09/16 21:12 ; Admin Dose 40 MG; Start 05/04/16 at 21:00 Digoxin (Digoxin) 0.25 mg DAILY@13 PO Last administered on 05/09/16 12:13; Admin Dose 0.25 MG; Start 05/04/16 at 13:00 Diltiazem HCl (Cardizem Cd) 240 mg DAILY PO Last administered on 05/10/16 08: 37; Admin Dose 240 MG; Start 05/04/16 at 09:00 Metoprolol Tartrate (Lopressor) 25 mg DAILY PO Last administered on 05/10/16 08:38; Admin Dose 25 MG; Start 05/04/16 at 09:00 Spironolactone (Aldactone) 25 mg DAILY PO Last administered on 05/10/16 08:38 ; Admin Dose 25 MG; Start 05/04/16 at 09:00 Miscellaneous Information (Flu Vaccine Previously Dispensed) FLU VACCINE PREVIOU... NOTE PRN XX NOTE; Start 05/04/16 at 03:30 Diagnostic Test (Pha) (Accucheck) 1 ea 02 XX Last administered on 05/07/16 02: 15; Admin Dose 1 EA; Start 05/05/16 at 02:00 Diagnostic Test (Pha) (Accucheck) 1 ea IACHS XX Last administered on 05/10/16 11:43; Admin Dose 1 EA; Start 05/04/16 at 11:30 Miscellaneous Information 1 ea NOTE XX ; Start 05/04/16 at 13:00 Glucose (Glutose) 15 gm Q15M PRN PO DECREASED GLUCOSE; Start 05/04/16 at 13:00 Glucose (Glutose) 22.5 gm Q15M PRN PO DECREASED GLUCOSE; Start 05/04/16 at 13: 00 Dextrose (D50w Syringe) 25 ml Q15M PRN IV DECREASED GLUCOSE; Start 05/04/16 at 13:00 Dextrose (D50w Syringe) 50 ml Q15M PRN IV DECREASED GLUCOSE; Start 05/04/16 at 13:00 Glucagon (Glucagen) 1 mg Q15M PRN IM DECREASED GLUCOSE; Start 05/04/16 at 13:00 Glucose (Glutose) 15 gm Q15M PRN BUCCAL DECREASED GLUCOSE; Start 05/04/16 at 13 :00 Bumetanide 1 mg 1 mg DAILY PO Last administered on 05/10/16 08:37; Admin Dose 1 MG; Start 05/07/16 at 09:00 Cefepime HCl (Maxipime 1gm/50 ml (Pmx)) 50 ml @ 100 mls/hr Q12 IVPB Last administered on 05/10/16 09:22; Admin Dose 100 MLS/HR; Start 05/06/16 at 21:00 Insulin Glargine (Lantus) 18 unit QHS SC Last administered on 05/09/16 21:42; Admin Dose 18 UNIT; Start 2/17/17 at 21:00 Hydrocortisone (Hydrocortisone 1% Oint) 1 applic BID TOP Last administered on t 08:38; Admin Dose 1 APPLIC; Start 05/09/16 at 14:00 MARIBEL COLORADO MD May 10, 2016 12:02
--- NOTE | 2016-05-10 12:23 | CONS ---
Date/Time of Note Date/Time of Note DATE: 05/10/16 TIME: 12:20 Assessment/Plan Assessment/Plan Additional Assessment/Plan Chest x-ray was reviewed from yesterday which is showing very minimal pleural effusions. Interstitial pattern is again visualized. Assessment and recommendations; 1. Patient admitted with bilateral pneumonia and CHF is marked clinical and radiological improvement. 2. Multiple stable other comorbid conditions. Patient can be discharged home. However before discharge ambulatory pulse oximetry needs to be done on room air to assess for any home oxygen needs. Patient will not need any further antibiotic dosing. Consultation Date/Type/Reason Admit Date/Time May 03, 2016 at 21:44 Type of Consultation: Pulmonary Referring Provider: YENNIFER CALABRESE MD 24 HR Interval Summary Free Text/Dictation Patient condition stable. Shortness of breath is markedly improved. She is currently sitting in a chair by bite. Denies any chest pain, fever, wheezing, sputum production or cough. General examination; elderly lady appears overweight currently in no distress awake and alert. Exam/Review of Systems Vital Signs Vitals Vital Signs Date Time Temp Pulse Resp B/P Pulse Ox O2 Delivery O2 Flow Rate FiO2 05/10/16 11:49 97.8 77 18 115/56 94 05/10/16 08:15 Nasal Cannula 4.0 Exam HEENT examination; supple neck, no JVD. Pharynx is clear. Patient has a few missing teeth. No thyromegaly. No neck bruits. Pupils are midsize bilaterally and reactive to light. Chest examination; minimally decreased breath sounds lung bases bilaterally otherwise clear. S1-S2 audible, no murmurs. Regular rhythm. Abdomen examination; soft, nontender. Protuberant. Bowel sounds audible. Extremity examination; no peripheral edema. SAFETY AND HEALTH MANAGER examination; no focal deficit. Results Result Diagram: 05/10/16 0606 05/10/16 0606 Results 24 hrs Laboratory Tests Test 05/09/16 17:09 05/09/16 21:10 05/10/16 06:06 05/10/16 08:17 Bedside Glucose 276 H 185 197 Alanine Aminotransferase (ALT/SGPT) 31 Albumin 3.5 Albumin/Globulin Ratio 1.09 Alkaline Phosphatase 174 H Anion Gap 13 Aspartate Amino Transf (AST/SGOT) 18 Basophils # 0.0 Basophils % 0.3 Blood Morphology Comment Blood Urea Nitrogen 20 Calcium Level 9.1 Carbon Dioxide Level 33 H Chloride Level 97 Creatinine 0.76 Direct Bilirubin 0.00 Eosinophils # 0.1 Eosinophils % 0.8 Globulin 3.20 Glucose Level 190 Hematocrit 39.7 Hemoglobin 12.9 Indirect Bilirubin 0.2 Lymphocytes # 1.9 Lymphocytes % 13.4 L Mean Corpuscular Hemoglobin 28.2 L Mean Corpuscular Hemoglobin Concent 32.6 Mean Corpuscular Volume 86.4 Mean Platelet Volume 8.0 Monocytes # 0.7 Monocytes % 4.8 Neutrophils # 11.7 H Neutrophils % 80.7 H Nucleated Red Blood Cells # 0.0 Nucleated Red Blood Cells % 0.0 Platelet Count 376 Potassium Level 4.4 Red Blood Count 4.60 Red Cell Distribution Width 17.5 H Sodium Level 139 Total Bilirubin 0.2 Total Protein 6.7 White Blood Count 14.5 H Test 05/10/16 11:40 Bedside Glucose 216 Medications Medications Current Medications Levofloxacin/ Dextrose (Levaquin 500mg/ D5W 100 ml (Pmx)) 100 ml @ 100 mls/hr Q24H IVPB Last administered on 05/10/16 08:01; Admin Dose 100 MLS/HR; Start at 06:00 Ondansetron HCl (Zofran Inj) 4 mg Q4H PRN IV NAUSEA AND/OR VOMITING; Start at 01:30 Apixaban (Eliquis) 5 mg BID PO Last administered on 05/10/16 08:38; Admin Dose 5 MG; Start 05/04/16 at 09:00 Atorvastatin Calcium (Lipitor) 40 mg HS PO Last administered on 05/09/16 21:12 ; Admin Dose 40 MG; Start 05/04/16 at 21:00 Digoxin (Digoxin) 0.25 mg DAILY@13 PO Last administered on 05/10/16 12:01; Admin Dose 0.25 MG; Start 05/04/16 at 13:00 Diltiazem HCl (Cardizem Cd) 240 mg DAILY PO Last administered on 05/10/16 08: 37; Admin Dose 240 MG; Start 05/04/16 at 09:00 Metoprolol Tartrate (Lopressor) 25 mg DAILY PO Last administered on 05/10/16 08:38; Admin Dose 25 MG; Start 05/04/16 at 09:00 Spironolactone (Aldactone) 25 mg DAILY PO Last administered on 05/10/16 08:38 ; Admin Dose 25 MG; Start 05/04/16 at 09:00 Miscellaneous Information (Flu Vaccine Previously Dispensed) FLU VACCINE PREVIOU... NOTE PRN XX NOTE; Start 05/04/16 at 03:30 Diagnostic Test (Pha) (Accucheck) 1 ea 02 XX Last administered on 05/07/16 02: 15; Admin Dose 1 EA; Start 05/05/16 at 02:00 Diagnostic Test (Pha) (Accucheck) 1 ea IACHS XX Last administered on 05/10/16 11:43; Admin Dose 1 EA; Start 05/04/16 at 11:30 Miscellaneous Information 1 ea NOTE XX ; Start 05/04/16 at 13:00 Glucose (Glutose) 15 gm Q15M PRN PO DECREASED GLUCOSE; Start 05/04/16 at 13:00 Glucose (Glutose) 22.5 gm Q15M PRN PO DECREASED GLUCOSE; Start 05/04/16 at 13: 00 Dextrose (D50w Syringe) 25 ml Q15M PRN IV DECREASED GLUCOSE; Start 05/04/16 at 13:00 Dextrose (D50w Syringe) 50 ml Q15M PRN IV DECREASED GLUCOSE; Start 05/04/16 at 13:00 Glucagon (Glucagen) 1 mg Q15M PRN IM DECREASED GLUCOSE; Start 05/04/16 at 13:00 Glucose (Glutose) 15 gm Q15M PRN BUCCAL DECREASED GLUCOSE; Start 05/04/16 at 13 :00 Bumetanide 1 mg 1 mg DAILY PO Last administered on 05/10/16 08:37; Admin Dose 1 MG; Start 05/07/16 at 09:00 Cefepime HCl (Maxipime 1gm/50 ml (Pmx)) 50 ml @ 100 mls/hr Q12 IVPB Last administered on 05/10/16 09:22; Admin Dose 100 MLS/HR; Start 05/06/16 at 21:00 Insulin Glargine (Lantus) 18 unit QHS SC Last administered on 05/09/16 21:42; Admin Dose 18 UNIT; Start 05/06/16 at 21:00 Hydrocortisone (Hydrocortisone 1% Oint) 1 applic BID TOP Last administered on 08:38; Admin Dose 1 APPLIC; Start 05/09/16 at 14:00 MAGALYS CHAPIN May 10, 2016 12:23
--- NOTE | 2016-05-10 14:49 | DS ---
DATE OF ADMISSION: 05/03/2016 DATE OF DISCHARGE: 05/10/2016 ADDENDUM The patient was unable to discharged on the and so will be discharged today. She remains in st able condition. OBJECTIVE VITAL SIGNS: Temperature 97.8, pulse 66, respirations 20, blood pressure 98% on oxygen via nasal ca nnula at her home rate of 4 liters per minute. GENERAL: She remains alert and oriented, in no distress, obese female. Auscultation of her chest r eveals reduced air entry, but without crackles or rales. ABDOMEN: Obese, soft. There is no peripheral edema. FINAL DIAGNOSIS: Remains the same. Please see my discharge summary 05/14/2016. DISCHARGE MEDICATIONS: Remained the same. DISCHARGE INSTRUCTIONS: Remained the same. DISPOSITION: To home with home health therapy. DISCHARGE CONDITION: Stable. DIET: Recommended diet: Low cholesterol, low fat, 1800 ADA diet. Dictated By: BIBI TSANG MD, BA/KIKE Conf#: [id number] DID#: [id number]
== END 2016-05-10 17:55 | disposition home health service (06) | DRG 291 ==
LOC: E/R 17:59 → MS4 21:44
PROVIDERS: ADMIT Internal Medicine; ATTEND Internal Medicine
DX: I11.0 Hypertensive heart disease with heart failure (principal); J18.9 Pneumonia, unspecified organism; J96.21 Acute and chronic respiratory failure with hypoxia; E87.3 Alkalosis; E11.21 Type 2 diabetes mellitus with diabetic nephropathy; R65.10 Systemic inflammatory response syndrome (SIRS) of non-infectious origin without acute organ dysfunction; I48.1 Persistent atrial fibrillation; E11.65 Type 2 diabetes mellitus with hyperglycemia; E66.2 Morbid (severe) obesity with alveolar hypoventilation; Z68.41 Body mass index [BMI] 40.0-44.9, adult; J44.1 Chronic obstructive pulmonary disease with (acute) exacerbation; I50.33 Acute on chronic diastolic (congestive) heart failure; Z87.891 Personal history of nicotine dependence; E87.5 Hyperkalemia
CPT/HCPCS: 36600; 71010; 71250; 80048; 80053; 80061; 82803; 82962; 83036; 83690; 83735; 83880; 84443; 84484; 85025; 85610; 85730; 87040; 93005; 94640; 94644; 94664; 96365; 96375; 97161; J1120; J0456; J0692; J0696; J1815; J1940; J1956; J2060; J2930

== ENCOUNTER 2016-06-11 01:15 | Inpatient (IN) | payer MEDICARE, OTHER ==
[2016-06-11] VITALS (7 sets, daily range): BP systolic 108–136; BP diastolic 66–122; PULSE 94–133; RESP 16–26; Ht 170.2 cm; Wt 119.5 kg
[~2016-06-11] VITALS: Ht 170.2 cm; Wt 119.5 kg
[~2016-06-11 01:15] MED LIST changes: +ADV25050 INHALATION; -DILT180C75 PO; -GLIM4TAB PO; +Ipratropium 0.02% (Neb) HHN; +LANT3I SC; +LEVA1.2523 HHN; -MAGN400T27 PO; -METF1000 PO; +NOVO3I SC
--- NOTE | 2016-06-11 01:36 | ERA ---
ER Documentation Chief Complaint Date/Time DATE: 06/11/16 TIME: 01:35 Chief Complaint Shortness of breath since last night x- chf, copd HPI The patient is a 65-year-old female, presenting to the ER because of acute dyspnea for 1 week, associated with dyspnea on exertion and intermittent cough for 2 days. She has similar symptoms previously, denies syncope, near syncope, neck pain, chest pain, abdominal pain, vomiting, dysuria, diarrhea. She normally uses 4 L nasal cannula continuously, used to smoke but quit many years ago Past medical history: History of CHF, COPD, diabetes mellitus, hypertension, atrial fibrillation, history of right breast carcinoma had chemotherapy in 2008 Past surgical history: Hysterectomy ROS All systems reviewed and are negative except as per history of present illness. Medications Home Meds Active Scripts Salmeterol Xinaf/Fluticasone* (Advair*) 250-50 Diskus Inhaler, 1 INH INHALATION BID, #1 INHALER Prov:ADRIAN TSANGEmi Ant. 05/09/16 [Ipratropium 0.02% (Neb)] 0.5 MG/2.5 ML NEBU No Conflict Check, 0.5 MG HHN Q4H RESP THERAPY Y for SHORTNESS OF BREATH, #30 VIAL 1 Refill Prov:ADRIAN TSANGEmi Ant. 05/09/16 Levalbuterol Hcl* (Xopenex*) 1.25 Mg/0.5 Ml Vial.neb, 1.25 MG HHN Q4H RESP THERAPY Y for SHORTNESS OF BREATH, #30 VIAL 1 Refill Prov:ADRIAN TSANGEmi Cain. 05/09/16 Insulin Aspart* (Novolog Insulin Pen*) 100 Unit/Ml Soln, 10 UNIT SC WITH MEALS for 30 Days Prov:ADRIAN TSANGEmi Ant. 05/09/16 Insulin Glargine* (Lantus*) 100 Unit/Ml Soln, 25 UNIT SC QHS for 30 Days, 1 Refill Prov:ADRIAN TSANGEmi Ant. 05/09/16 Bumetanide* (Bumetanide*) 1 Mg Tablet, 1 MG PO DAILY for 30 Days, TAB Prov:ADRIAN TSANGEmi Ant. 05/09/16 Potassium Chloride (Potassium Chloride) 20 Meq Packet, 20 MEQ PO DAILY for 30 Days, PACKET Prov:ADRIAN TSANGEmi M. 05/09/16 Metoprolol Tartrate* (Lopressor*) 25 Mg Tab, 25 MG PO BID for 30 Days, TAB Prov:PITER TSANGSHERICE Cain. 05/09/16 Spironolactone* (Aldactone*) 25 Mg Tablet, 25 MG PO DAILY for 30 Days, TAB Prov:DWAYNE CARTER MD 03/21/16 Digoxin* (Digitek*) 250 Mcg Tablet, 0.25 MG PO DAILY@13 for 30 Days, TAB Prov:DWAYNE CARTER MD 03/21/16 Diltiazem Hcl* (Cardizem CD*) 240 Mg Cap.sr.24h, 240 MG PO DAILY for 60 Days, # 60 CAP 2 Refills Prov:JOB MG 01/02/16 Apixaban* (Eliquis*) 5 Mg Tablet, 5 MG PO BID for 60 Days, TAB 3 Refills Prov:JOB MG 01/02/16 Reported Medications Atorvastatin* (Atorvastatin*) 40 Mg Tablet, 40 MG PO HS, TAB 08/28/14 Allergies Allergies: Coded Allergies: No Known Allergies (Verified Allergy, Unknown, 05/03/16) PMhx/Soc History of Surgery: Yes (total hysterectomy, tubaligaion, hernia repair, r.breast biopsy) Anesthesia Reaction: No Hx 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 Disorder: No Hx Respiratory Disorders: Yes (copd, resp. failure) Hx Cardiac Disorders: Yes (afib, chf,) Hx Psychiatric Problems: No Hx Miscellaneous Medical Probl: Yes (pls see EMR) Hx Alcohol Use: Yes (occasionally) Hx Substance Use: No Hx Tobacco Use: Yes Physical Exam Vitals Vital Signs Date Time Temp Pulse Resp B/P Pulse Ox O2 Delivery O2 Flow Rate FiO2 06/11/16 05:00 90 26 120/71 92 Nasal Cannula 4.0 06/11/16 03:00 98 24 160/83 88 Nasal Cannula 4.0 06/11/16 01:45 Nasal Cannula 4.0 06/11/16 01:45 Nasal Cannula 4 06/11/16 01:30 110 26 97/66 87 Nasal Cannula 4.0 06/11/16 01:20 98.9 110 20 145/71 92 Physical Exam Const: No acute distress. Head: Atraumatic. Eyes: Normal Conjunctiva. ENT: Normal External Ears, Nose and Mouth. Neck: Full range of motion. No meningismus. Resp: Bibasilar crackle Cardio: Irregularly irregular Abd: Soft, non distended, normal bowel sounds, non tender. Skin: No petechiae or rashes. Back: No midline or flank tenderness. Ext: No cyanosis, mild bilateral lower extremity edema, no calf tenderness Neur: Awake and alert. No focal deficit Psych: Normal Mood and Affect. Result Diagram: 06/11/16 0150 06/11/16 0150 Results 24 hrs Laboratory Tests Test 06/11/16 01:50 06/11/16 03:50 White Blood Count 18.010^3/ul Red Blood Count 4.0510^6/ul Hemoglobin 11.3g/dl Hematocrit 35.6% Mean Corpuscular Volume 87.9fl Mean Corpuscular Hemoglobin 27.9pg Mean Corpuscular Hemoglobin Concent 31.7g/dl Red Cell Distribution Width 18.5% Platelet Count 14653^3/UL Mean Platelet Volume 11.3fl Neutrophils % 77.0% Lymphocytes % 12.5% Monocytes % 9.6% Eosinophils % 0.1% Basophils % 0.2% Nucleated Red Blood Cells % 0.0/100WBC Neutrophils # 13.810^3/ul Lymphocytes # 2.310^3/ul Monocytes # 1.710^3/ul Eosinophils # 0.010^3/ul Basophils # 0.010^3/ul Nucleated Red Blood Cells # 0.010^3/ul Prothrombin Time 15.0Sec Prothrombin Time Ratio 1.2 INR International Normalized Ratio 1.17 Activated Partial Thromboplast Time 39.8Sec Sodium Level 131mmol/L Potassium Level 4.5mmol/L Chloride Level 88mmol/L Carbon Dioxide Level 30mmol/L Anion Gap 18 Blood Urea Nitrogen 13mg/dl Creatinine 0.68mg/dl Glucose Level 248mg/dl Calcium Level 9.1mg/dl Troponin I < 0.012ng/ml B-Type Natriuretic Peptide 1250PG/ML Digoxin Level < 0.4ng/ml Bedside Urine pH (LAB) 5.5 Bedside Urine Protein (LAB) Trace Bedside Urine Glucose (UA) 0.1% Bedside Urine Ketones (LAB) Negative Bedside Urine Blood Trace-intact Bedside Urine Nitrite (LAB) Negative Bedside Urine Leukocyte Esterase (L Trace Current Medications Medications (Trade) Dose Ordered Sig/Westley Route PRN Reason Start Time Stop Time Status Last Admin Dose Admin Furosemide (Lasix) 40 mg ONCE ONCE IV 06/11/16 03:30 06/11/16 03:31 DC 06/11/16 03:26 IV Flush (NS 3 ml) 3 ml PER PROTOCOL IV 06/11/16 06:00 UNV Lorazepam (Ativan) 0.5 mg Q6H PRN IV ANXIETY 06/11/16 06:00 UNV Ondansetron HCl (Zofran Tab) 4 mg Q6H PRN PO NAUSEA AND/OR VOMITING 06/11/16 06:00 UNV Metoclopramide HCl (Reglan) 10 mg Q6H PRN IV NAUSEA AND/OR VOMITING 06/11/16 06:00 UNV Nitroglycerin (Nitroglycerin (Sl Tab) 0.4 Mg) 1 tab Q5M PRN SL CHEST PAIN 06/11/16 06:00 UNV Acetaminophen (Tylenol Tab) 650 mg Q6H PRN PO PAIN LEVEL 1-3 OR FEVER 06/11/16 06:00 UNV Acetaminophen/ Hydrocodone Bitart (Ollie (5/325)) 1 tab Q6H PRN PO PAIN LEVEL 4-6 06/11/16 06:00 UNV Morphine Sulfate (morphine) 2 mg Q4H PRN IV PAIN LEVEL 7-10 06/11/16 06:00 UNV Famotidine (Pepcid) 20 mg Q12 PO 06/11/16 09:00 UNV Atorvastatin Calcium (Lipitor) 40 mg HS PO 06/11/16 21:00 UNV Bumetanide (Bumex) 1 mg DAILY PO 06/11/16 09:00 UNV Digoxin (Digoxin) 0.25 mg DAILY@13 PO 06/11/16 13:00 UNV Diltiazem HCl (Cardizem Cd) 240 mg DAILY PO 06/11/16 09:00 UNV Insulin Glargine (Lantus) 25 unit QHS SC 06/11/16 21:00 UNV Levalbuterol (Xopenex Neb) 1.25 mg Q4H RESP THERAPY PRN HHN SHORTNESS OF BREATH 06/11/16 06:00 UNV Metoprolol Tartrate (Lopressor) 25 mg BID PO 06/11/16 09:00 UNV Potassium Chloride (Potassium Chloride Pwd/Soln) 20 meq DAILY PO 06/11/16 09:00 UNV Salmeterol Xinafoate/ Fluticasone (Advair 250/50 Diskus) 1 inh BID INH 06/11/16 09:00 UNV Spironolactone (Aldactone) 25 mg DAILY PO 06/11/16 09:00 UNV Miscellaneous Information 0.5 mg Q4H RESP THERAPY PRN HHN SHORTNESS OF BREATH 06/11/16 06:00 UNV Procedures/[place] [id number] Radiology Main Line: [phone] DIAGNOSTIC IMAGING REPORT Patient: TAYLER CAICEDO : 1950 Age: 65 Sex: F MR #: [id number] DOS: 06/11/16 0142 Ordering MD: MARY MYERS MD Location: E/R Room/Bed: PROCEDURE: Chest. CLINICAL INDICATION: Shortness of breath. TECHNIQUE: Single frontal view of the chest was obtained. COMPARISON: 05/09/2016. FINDINGS: The cardiac silhouette is enlarged. The aortic arch is calcified. There is a large left-sided pleural effusion with underlying atelectasis/consolidation. There is no pneumothorax. IMPRESSION: Large left-sided pleural effusion with underlying atelectasis/consolidation, increased compared with the prior study. Cardiomegaly and aortic atherosclerosis. .Farhan Smith MD, MD Date Time Electronically viewed and signed by .Farhan Smith MD, on 06/11/2016 02:27 .T/ CC: MARY MYERS MD EKG: Read by emergency physician Rate/Rhythm: Atrial fibrillation 111 beats/min, RVR QRS, ST, T-waves: No ST elevation, no T inversion, right bundle branch block Impression: Abnormal EKG MEDICAL MAKING DECISION: The patient is a 65-year-old female, presenting with acute CHF exacerbation acute leukocytosis of unclear etiology. He was treated with Lasix 40 mg IV for acute CHF with good response the differential diagnoses considered include but are not limited to asthma, COPD, pneumonia, pulmonary embolus, pleural effusion, congestive heart failure. Departure Diagnosis: Primary Impression: CHF (congestive heart failure) Additional Impressions: Leukocytosis Anemia Condition: Stable Comments I discussed the findings with the patient. I discussed the patient with the on- call hospitalist Dr. Denis who was made aware of the lab, the treatment, the patient condition. The patient is admitted to telemetry at 3:05 AM MARY MYERS MD Jun 11, 2016 01:36
--- NOTE | 2016-06-11 02:28 | RADRPT ---
PROCEDURE: Chest. CLINICAL INDICATION: Shortness of breath. TECHNIQUE: Single frontal view of the chest was obtained. COMPARISON: 05/09/2016. FINDINGS: The cardiac silhouette is enlarged. The aortic arch is calcified. There is a large left-sided pleu ral effusion with underlying atelectasis/consolidation. There is no pneumothorax. IMPRESSION: Large left-sided pleural effusion with underlying atelectasis/consolidation, increased compared with the prior study. Cardiomegaly and aortic atherosclerosis. .Farhan Smith MD, MD Date Time Electronically viewed and signed by .Farhan Smith MD, MD on 06/11/2016 02:27 .T/
[2016-06-11 02:30] LABS: ADD SCAN DIFF NO
[2016-06-11 02:33] LABS: ABNORMAL IP MESSAGE 1; BASOPHILS % 0.2 % (0.0-2.0); EOSINOPHILS % 0.1 % (0.0-7.0); HEMATOCRIT 35.6 % (37.0-47.0); HEMOGLOBIN 11.3 g/dl (12.0-16.0); LYMPHOCYTES # 2.3 10^3/ul (0.8-2.9); LYMPHOCYTES % 12.5 % (15.0-51.0); MEAN CORPUSCULAR HEMOGLOBIN 27.9 pg (29.0-33.0); MEAN CORPUSCULAR HGB CONC 31.7 g/dl (32.0-37.0); MEAN CORPUSCULAR VOLUME 87.9 fl (82.0-101.0); MEAN PLATELET VOLUME 11.3 fl (7.4-10.4); MONOCYTE # 1.7 10^3/ul (0.3-0.9); MONOCYTES % 9.6 % (0.0-11.0); NEUTROPHIL # 13.8 10^3/ul (1.6-7.5); PLATELET COUNT 251 10^3/UL (140-415); RED BLOOD COUNT 4.05 10^6/ul (4.20-5.40); RED CELL DISTRIBUTION WIDTH 18.5 % (11.5-14.5)
[2016-06-11 02:45] LABS: CHLORIDE 88 mmol/L (97-110); POTASSIUM 4.5 mmol/L (3.5-5.1); SODIUM 131 mmol/L (135-144)
[2016-06-11 02:48] LABS: ANION GAP 18 (8-16); BLOOD UREA NITROGEN 13 mg/dl (7-20); CARBON DIOXIDE 30 mmol/L (21-31); CREATININE 0.68 mg/dl (0.44-1.00); GLUCOSE 248 mg/dl (70-220)
[2016-06-11 02:49] LABS: CALCIUM 9.1 mg/dl (8.4-10.2)
[2016-06-11 02:53] LABS: INR 1.17; PT RATIO 1.2
[2016-06-11 02:54] LABS: PARTIAL THROMBOPLASTIN TIME 39.8 Sec (25.0-35.0)
[2016-06-11 02:56] LABS: B-TYPE NATRIURETIC PEPTIDE 1250 PG/ML (0-125)
[2016-06-11 03:00] LABS: TROPONIN-I < 0.012 ng/ml (0.00-0.12)
[2016-06-11] MEDS ORDERED: FUROSEMIDE 40 MG INJ IV ONE (03:30)
--- NOTE | 2016-06-11 03:45 | HP ---
Date/Time of Note Date/Time of Note DATE: 06/11/16 TIME: 03:39 Assessment/Plan VTE Prophylaxis VTE Prophylaxis Intervention: other (Lovenox) Assessment/Plan Assessment/Plan 1) CHF, Acute on Chronic, BNP is 10x upper limit of normal at 1250 - Admit to Med-Surg - Diuresis - Monitor electrolytes - Take home medications as directed - was not therapeutic on Digoxin - Cardiology Consult if Indicated 2) Leukocytosis with no left shift - no source of infection at this time. - Repeat CBC in AM 3) Diabetes Mellitus Type 2, uncontrolled - AccuChek AC and HS - Constant Carb and Low Sodium DIet - HgbA1c - Insulin SLiding Scale HPI/ROS Admit Date/Time Admit Date/Time 06/11/16 0307 Hx of Present Illness Chief Complaint Shortness of breath since last night HPI The patient is a 65-year-old female, presenting to the ER because of acute dyspnea for 1 week, associated with dyspnea on exertion and intermittent cough for 2 days. She has similar symptoms previously, denies syncope, near syncope, neck pain, chest pain, abdominal pain, vomiting, dysuria, diarrhea. She normally uses 4 L nasal cannula continuously, used to smoke but quit many years ago. She was diagnosed with Pneumonia 6 weeks ago and thinks her cough is left over from that. Also has some pain in the right side of her chest. Hurts when she moves her arm or takes a deep breath. She admits that at the senior living where she lives, they had been doing exercises and agrees that she just pulled a muscle. ER Course per ER Physician: The patient is a 65-year-old female, presenting with acute CHF exacerbation acute leukocytosis of unclear etiology. He was treated with Lasix 40 mg IV for acute CHF with good response the differential diagnoses considered include but are not limited to asthma, COPD, pneumonia, pulmonary embolus, pleural effusion, congestive heart failure. ROS General: Admits: Poor Appetite initially, but very hungry now, since getting treated in the ER Denies: Fever, Chills, Abnormal Weight Loss, Generalized Body Aches Eyes: Admits: Denies: Blurry Vision, Double Vision HENT: Admits: Sore Throat for a couple of days, maybe from coughing Denies: Ear Pain/Pressure, Runny/Stuffy Nose Cardiovascular: Admits: Chest Pain on the right side of her chest. See HPI. Palpitations, intermittent. Leg Swelling, "they are always swollen" but I can't get her to tell me whether they are better , worse or the same right now. Denies: Pulmonary: Admits: Cough, Shortness of Breath, improving since being treated with Lasix Denies: Wheeze Gastrointestinal: Admits: Denies: Abdominal Pain, Nausea, Vomiting, Diarrhea, Blood in Stool, Black-Colored Stool Urogenital: Admits: Denies: Burning with Urination, Urinary Frequency Musculoskeletal: Admits: Denies: Joint Pain, Joint Swelling, Muscle Pain 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: Admits: Denies: Headache, Dizziness, Numbness, Tingling, Shooting Pains Integumentary: Admits: Denies: Rash, Itch PMH/Family/Social Past Medical History CHF, COPD, diabetes mellitus, hypertension, atrial fibrillation, history of right breast carcinoma had chemotherapy in 2008 Past Surgical History total hysterectomy, tubal ligaion, hernia repair, r.breast biopsy Past Surgical Hx: other Social History Alcohol Use: occasionally Smoking Status: Former smoker Drug Use: none Exam/Review of Systems Vital Signs Vitals Vital Signs Date Time Temp Pulse Resp B/P Pulse Ox O2 Delivery O2 Flow Rate FiO2 06/11/16 01:45 Nasal Cannula 4.0 06/11/16 01:20 98.9 110 20 145/71 92 Exam Exam General: Morbidly obese female, sitting up on the side of her bed, alert and in no acute distress Eyes: Sclera White, EOMI HENT: Normocephalic/Atraumatic, External Ears/Nose Normal, Moist Mucus Membranes Neck: Supple, Trachea Midline Cardiovascular: Normal Rate, Normal Rhythm, Normal S1 and S2, No Murmur, No Extra Sounds. Pitting edema bilateral LE: LEFT with Trace to +1 to knee; RIGHT with Trace to mid-leg. Radial pulses +2/4 and equal bilaterally. Pulmonary: Decreased airflow throughout, Normal Respiratory Effort Gastrointestinal: Obese abdomen makes palpation of internal organs difficult. Normoactive Bowel Sounds, Soft, Non-Tender/Non-Distended, No Hepatosplenomegaly Appreciated, No Pulsatile Masses noting exam is limited due to body habitus Urogenital: Deferred Musculoskeletal: Reproducible chest pain with palpation of the right anterior and anterolateral chest wall. 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: CN II - XII Grossly Intact, Non-Focal, Speech Normal Integumentary: Normal Moisture and Temperature, Good Turgor, No Jaundice, No Rash Lymphatic: No Cervical Lymphadenopathy Psychiatric: Appropriate Mood and Affect, Good Eye Contact Labs Result Diagram: 06/11/16 01506/11/16 015 Medications Medications Home Meds Active Scripts Salmeterol Xinaf/Fluticasone* (Advair*) 250-50 Diskus Inhaler, 1 INH INHALATION BID, #1 INHALER Prov:BIBI TSANG. 05/09/16 [Ipratropium 0.02% (Neb)] 0.5 MG/2.5 ML NEBU No Conflict Check, 0.5 MG HHN Q4H RESP THERAPY Y for SHORTNESS OF BREATH, #30 VIAL 1 Refill Prov:BIBI TSANG. 05/09/16 Levalbuterol Hcl* (Xopenex*) 1.25 Mg/0.5 Ml Vial.neb, 1.25 MG HHN Q4H RESP THERAPY Y for SHORTNESS OF BREATH, #30 VIAL 1 Refill Prov:BIBI TSANG. 05/09/16 Insulin Aspart* (Novolog Insulin Pen*) 100 Unit/Ml Soln, 10 UNIT SC WITH MEALS for 30 Days Prov:BIBI TSANG. 05/09/16 Insulin Glargine* (Lantus*) 100 Unit/Ml Soln, 25 UNIT SC QHS for 30 Days, 1 Refill Prov:BIBI TSANG. 05/09/16 Bumetanide* (Bumetanide*) 1 Mg Tablet, 1 MG PO DAILY for 30 Days, TAB Prov:BIBI TSANG. 05/09/16 Potassium Chloride (Potassium Chloride) 20 Meq Packet, 20 MEQ PO DAILY for 30 Days, PACKET Prov:BIBI TSANG. 05/09/16 Metoprolol Tartrate* (Lopressor*) 25 Mg Tab, 25 MG PO BID for 30 Days, TAB Prov:BIBI TSANG. 05/09/16 Spironolactone* (Aldactone*) 25 Mg Tablet, 25 MG PO DAILY for 30 Days, TAB Prov:DWAYNE CARTER MD 03/21/16 Digoxin* (Digitek*) 250 Mcg Tablet, 0.25 MG PO DAILY@13 for 30 Days, TAB Prov:DWAYNE CARTER MD 03/21/16 Diltiazem Hcl* (Cardizem CD*) 240 Mg Cap.sr.24h, 240 MG PO DAILY for 60 Days, # 60 CAP 2 Refills Prov:JOB MG 01/02/16 Apixaban* (Eliquis*) 5 Mg Tablet, 5 MG PO BID for 60 Days, TAB 3 Refills Prov:JOB MG 01/02/16 Reported Medications Atorvastatin* (Atorvastatin*) 40 Mg Tablet, 40 MG PO HS, TAB 08/28/14 Procedures Procedures Laboratory Tests Test 06/11/16 01:50 06/11/16 03:50 White Blood Count 18.010^3/ul Red Blood Count 4.0510^6/ul Hemoglobin 11.3g/dl Hematocrit 35.6% Mean Corpuscular Volume 87.9fl Mean Corpuscular Hemoglobin 27.9pg Mean Corpuscular Hemoglobin Concent 31.7g/dl Red Cell Distribution Width 18.5% Platelet Count 15123^3/UL Mean Platelet Volume 11.3fl Neutrophils % 77.0% Lymphocytes % 12.5% Monocytes % 9.6% Eosinophils % 0.1% Basophils % 0.2% Nucleated Red Blood Cells % 0.0/100WBC Neutrophils # 13.810^3/ul Lymphocytes # 2.310^3/ul Monocytes # 1.710^3/ul Eosinophils # 0.010^3/ul Basophils # 0.010^3/ul Nucleated Red Blood Cells # 0.010^3/ul Prothrombin Time 15.0Sec Prothrombin Time Ratio 1.2 INR International Normalized Ratio 1.17 Activated Partial Thromboplast Time 39.8Sec Sodium Level 131mmol/L Potassium Level 4.5mmol/L Chloride Level 88mmol/L Carbon Dioxide Level 30mmol/L Anion Gap 18 Blood Urea Nitrogen 13mg/dl Creatinine 0.68mg/dl Glucose Level 248mg/dl Calcium Level 9.1mg/dl Troponin I < 0.012ng/ml B-Type Natriuretic Peptide 1250PG/ML Digoxin Level < 0.4ng/ml Bedside Urine pH (LAB) 5.5 Bedside Urine Protein (LAB) Trace Bedside Urine Glucose (UA) 0.1% Bedside Urine Ketones (LAB) Negative Bedside Urine Blood Trace-intact Bedside Urine Nitrite (LAB) Negative Bedside Urine Leukocyte Esterase (L Trace EKG: Read by emergency physician Rate/Rhythm: Atrial fibrillation 111 beats/min, RVR QRS, ST, T-waves: No ST elevation, no T inversion, right bundle branch block Impression: Abnormal EKG PROCEDURE: Chest. CLINICAL INDICATION: Shortness of breath. TECHNIQUE: Single frontal view of the chest was obtained. COMPARISON: 05/09/2016. FINDINGS: The cardiac silhouette is enlarged. The aortic arch is calcified. There is a large left-sided pleural effusion with underlying atelectasis/consolidation. There is no pneumothorax. IMPRESSION: Large left-sided pleural effusion with underlying atelectasis/consolidation, increased compared with the prior study. Cardiomegaly and aortic atherosclerosis. JENIFFER RICHARDS DO Jun 11, 2016 03:45
[2016-06-11 03:51] LABS: URINE BLOOD (Dip) POC Trace-intact (NEGATIVE)
[2016-06-11] MEDS ORDERED: LORAZEPAM 2 MG INJ IV PRN (06:00)
[2016-06-11] MEDS ORDERED: ONDANSETRON 4 MG TAB PO PRN (06:00)
[2016-06-11] MEDS ORDERED: NITROGLYCERIN (SL) 0.4 MG TAB SL PRN (06:00)
[2016-06-11] MEDS ORDERED: METOCLOPRAMIDE 10 MG INJ IV PRN (06:00)
[2016-06-11] MEDS ORDERED: HYDROCODONE/APAP (5/325) TAB PO PRN (06:00)
[2016-06-11] MEDS ORDERED: NACL 0.9% 3 ML SYG IV SCH (06:00)
[2016-06-11] MEDS ORDERED: GLUCOSE GEL 15 GRAM TUBE PO PRN ×2 (08:00)
[2016-06-11] MEDS ORDERED: GLUCOSE GEL 15 GRAM TUBE BUCCAL PRN (08:00)
[2016-06-11] MEDS ORDERED: DEXTROSE 50% 50 ML SYRINGE IV PRN ×2 (08:00)
[2016-06-11] MEDS ORDERED: GLUCAGON 1 MG INJ IM PRN (08:00)
[2016-06-11] MEDS: POTASSIUM CHLORIDE 20 MEQ POWDER FOR ORAL SOLN PO SCH ×2 (09:00→12:14)
[2016-06-11] MEDS: FAMOTIDINE 20 MG TAB PO SCH ×2 (12:07→20:37)
[2016-06-11] MEDS: SALMETEROL/FLUTICASONE 250/50 INHA INH SCH ×2 (12:08→21:54)
[2016-06-11] MEDS: BUMETANIDE 1 MG TAB PO SCH (12:09)
[2016-06-11] MEDS: DILTIAZEM (CD) 240 MG CAP PO SCH (12:09)
[2016-06-11] MEDS: SPIRONOLACTONE 25 MG TAB PO SCH (12:10)
[2016-06-11] MEDS: METOPROLOL 25 MG TAB PO SCH ×2 (12:10→20:39)
[2016-06-11] MEDS: DIGOXIN 0.25 MG TAB PO SCH (12:47)
[2016-06-11 15:56] LABS: CREATINE KINASE 31 IU/L (23-200)
[2016-06-11 16:06] LABS: CK-MB 0.69 ng/ml (0.0-2.4)
--- NOTE | 2016-06-11 16:10 | CONS ---
Date/Time of Note Date/Time of Note DATE: 06/11/16 TIME: 16:05 Assessment/Plan Assessment/Plan Additional Assessment/Plan Chest x-ray was reviewed from today which is showing a left pleural effusion. Next Assessment recommendations; 1. Patient admitted with leukocytosis as well as left lower lobe infiltrate/ pleural effusion. The findings are not suggestive of congestive heart failure pattern. 2. History of diabetes and hypertension. 3. Remote history of right-sided breast cancer. Recommendation; patient is scheduled for ultrasound-guided thoracentesis on the left side. I would recommend at this time adding Levaquin and cefepime. Further recommendations to be done once pleural fluid is obtained. Consultation Date/Type/Reason Admit Date/Time 06/11/16 0307 Date of Consultation: Jun 11, 2016 Type of Consultation: Pulmonary Reason for Consultation Pulmonary consultation is requested for evaluation of left pleural effusion. History presenting; patient is a very pleasant 65-year-old lady who came into the emergency room today with a 2 day history of shortness of breath and cough with low-grade fever. Patient denies any sputum production. Any hemoptysis. According to her she was fine 2 days ago when the symptoms started. Denies any nausea, vomiting. Any abdominal pain. Any high fever or chills. Next Past medical history; 1. Patient with a history of right breast cancer several years ago status post chemo and radiation treatment. No surgery was done. 2. Hypertension. 3. Diabetes. 4. History of abdominal hysterectomy. 5. No known history of any coronary artery disease or congestive heart failure. Next Medications; were reviewed. Allergies; are none. Social history; patient quit smoking 2009 was very scant smoker. Most of alcohol or drug abuse. Family history; she is a she is a . She has 3 children. Most of any illnesses in the family. 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 Review of systems; denies any headache, visual changes. Any sinus symptoms, postnasal drip. Any seizures. Denies any sore throat, dysphagia. Any chest pain, angina. Denies any wheezing. Compass of cough is not any sputum production. Denies any hemoptysis. Any weight loss. Any abdominal pain, nausea, vomiting. Any melena or hematochezia. Any urinary symptoms. Any orthopnea. Any weight change. Any edema. Any skin changes. Next General exam; elderly lady, currently in no distress, appears overweight. Past Surgical History Past Surgical Hx: other Social History Alcohol Use: occasionally Smoking Status: Former smoker Drug Use: none Exam/Review of Systems Vital Signs Vitals Vital Signs Date Time Temp Pulse Resp B/P Pulse Ox O2 Delivery O2 Flow Rate FiO2 06/11/16 14:52 Nasal Cannula 5.0 06/11/16 14:21 107 06/11/16 14:19 98.6 22 108/66 91 Exam HEENT exam; supple neck, JVD difficult to see because of shortening. Pupils are midsize and reactive to light bilaterally and equally. No neck masses. No thyromegaly. Pharynx is clear. Patient has a few missing teeth. Chest examination a micro minimally decreased breath sounds left lower lobe otherwise clear. S1-S2 audible, no murmurs. Regular rhythm. Abdomen exam is; soft, no organomegaly. Bowel sounds are audible.. Extremity examination; no peripheral edema. Pulses 1+ bilaterally. RN OCCUPATIONAL examination; cranial nerves are grossly intact. No motor deficit. Results Result Diagram: 06/11/16 0150 06/11/16 0150 Results 24 hrs Laboratory Tests Test 06/11/16 01:50 06/11/16 03:50 06/11/16 15:00 White Blood Count 18.0 #H Red Blood Count 4.05 L Hemoglobin 11.3 L Hematocrit 35.6 L Mean Corpuscular Volume 87.9 Mean Corpuscular Hemoglobin 27.9 L Mean Corpuscular Hemoglobin Concent 31.7 L Red Cell Distribution Width 18.5 H Platelet Count 251 Mean Platelet Volume 11.3 #H Neutrophils % 77.0 Lymphocytes % 12.5 L Monocytes % 9.6 Eosinophils % 0.1 Basophils % 0.2 Nucleated Red Blood Cells % 0.0 Neutrophils # 13.8 H Lymphocytes # 2.3 Monocytes # 1.7 H Eosinophils # 0.0 Basophils # 0.0 Nucleated Red Blood Cells # 0.0 Prothrombin Time 15.0 H Prothrombin Time Ratio 1.2 INR International Normalized Ratio 1.17 Activated Partial Thromboplast Time 39.8 H Sodium Level 131 L Potassium Level 4.5 Chloride Level 88 L Carbon Dioxide Level 30 Anion Gap 18 H Blood Urea Nitrogen 13 Creatinine 0.68 Glucose Level 248 H Calcium Level 9.1 Troponin I < 0.012 Pending B-Type Natriuretic Peptide 1250 H Digoxin Level < 0.4 L Bedside Urine pH (LAB) 5.5 Bedside Urine Protein (LAB) Trace H Bedside Urine Glucose (UA) 0.1% H Bedside Urine Ketones (LAB) Negative Bedside Urine Blood Trace-intact H Bedside Urine Nitrite (LAB) Negative Bedside Urine Leukocyte Esterase (L Trace H Creatine Kinase 31 Creatine Kinase Index Pending Creatinine Kinase MB (Mass) Pending Medications Medications Current Medications Lorazepam (Ativan) 0.5 mg Q6H PRN IV ANXIETY; Start 06/11/16 at 06:00 Ondansetron HCl (Zofran Tab) 4 mg Q6H PRN PO NAUSEA AND/OR VOMITING; Start at 06:00 Metoclopramide HCl (Reglan) 10 mg Q6H PRN IV NAUSEA AND/OR VOMITING; Start at 06:00 Nitroglycerin (Nitroglycerin (Sl Tab) 0.4 Mg) 1 tab Q5M PRN SL CHEST PAIN; Start 06/11/16 at 06:00 Acetaminophen (Tylenol Tab) 650 mg Q6H PRN PO PAIN LEVEL 1-3 OR FEVER; Start at 06:00 Acetaminophen/ Hydrocodone Bitart ([place] (5/325)) 1 tab Q6H PRN PO PAIN LEVEL 4 -6; Start 06/11/16 at 06:00 Morphine Sulfate (morphine) 2 mg Q4H PRN IV PAIN LEVEL 7-10; Start 06/11/16 at 06:00 Famotidine (Pepcid) 20 mg Q12 PO Last administered on 06/11/16 12:07; Admin Dose 20 MG; Start 06/11/16 at 09:00 Atorvastatin Calcium (Lipitor) 40 mg HS PO ; Start 06/11/16 at 21:00 Bumetanide (Bumex) 1 mg DAILY PO Last administered on 06/11/16 12:09; Admin Dose 1 MG; Start 06/11/16 at 09:00 Digoxin (Digoxin) 0.25 mg DAILY@13 PO Last administered on 06/11/16 12:47; Admin Dose 0.25 MG; Start 06/11/16 at 13:00 Diltiazem HCl (Cardizem Cd) 240 mg DAILY PO Last administered on 06/11/16 12: 09; Admin Dose 240 MG; Start 06/11/16 at 09:00 Insulin Glargine (Lantus) 25 unit QHS SC ; Start 06/11/16 at 21:00 Metoprolol Tartrate (Lopressor) 25 mg BID PO Last administered on 06/11/16 12: 10; Admin Dose 25 MG; Start 06/11/16 at 09:00 Potassium Chloride (Potassium Chloride Pwd/Soln) 20 meq DAILY PO ; Start at 09:00 Salmeterol Xinafoate/ Fluticasone (Advair 250/50 Diskus) 1 inh BID INH Last administered on 06/11/16 12:08; Admin Dose 1 INH; Start 06/11/16 at 09:00 Spironolactone (Aldactone) 25 mg DAILY PO Last administered on 06/11/16 12:10 ; Admin Dose 25 MG; Start 06/11/16 at 09:00 Miscellaneous Information 1 ea NOTE XX ; Start 06/11/16 at 08:00 Glucose (Glutose) 15 gm Q15M PRN PO DECREASED GLUCOSE; Start 06/11/16 at 08:00 Glucose (Glutose) 22.5 gm Q15M PRN PO DECREASED GLUCOSE; Start 06/11/16 at 08: 00 Dextrose (D50w Syringe) 25 ml Q15M PRN IV DECREASED GLUCOSE; Start 06/11/16 at 08:00 Dextrose (D50w Syringe) 50 ml Q15M PRN IV DECREASED GLUCOSE; Start 06/11/16 at 08:00 Glucagon (Glucagen) 1 mg Q15M PRN IM DECREASED GLUCOSE; Start 06/11/16 at 08:00 Glucose (Glutose) 15 gm Q15M PRN BUCCAL DECREASED GLUCOSE; Start 06/11/16 at 08 :00 Diagnostic Test (Pha) (Accu-Chek) 1 ea 02 XX ; Start 06/12/16 at 02:00 MAGALYS CHAPIN Jun 11, 2016 16:10
[2016-06-11 16:11] LABS: TROPONIN-I < 0.012 ng/ml (0.00-0.12)
[2016-06-11] MEDS: LEVOFLOXACIN 500MG/D5W (PMX) 100 ML IVPB SCH (16:52)
[2016-06-11] MEDS: LEVALBUTEROL (NEB) 1.25 MG/0.5 ML AMP HHN PRN (17:00)
[2016-06-11] MEDS: IPRATROPIUM (NEB) 0.5 MG/2.5 ML AMP HHN PRN (17:00)
[2016-06-11] MEDS: INSULIN ASPART [NOVOLOG] 3 ML PEN SC SCH ×3 (17:58→20:58)
[2016-06-11] MEDS: CEFEPIME 1GM/50 ML (PMX) 50 ML IVPB SCH (20:37)
[2016-06-11] MEDS: ATORVASTATIN 40 MG TAB PO SCH (20:37)
[2016-06-11] MEDS: ACETAMINOPHEN 325 MG TAB PO PRN (20:37)
[2016-06-11] MEDS ORDERED: INSULIN GLARGINE [LANtus] 3 ML PEN SC SCH (21:00)
[2016-06-11 21:15] LABS: CREATINE KINASE 28 IU/L (23-200)
[2016-06-11 21:25] LABS: CK-MB 0.62 ng/ml (0.0-2.4)
[2016-06-11 21:28] LABS: TROPONIN-I < 0.012 ng/ml (0.00-0.12)
[2016-06-12] VITALS (13 sets, daily range): BP systolic 95–130; BP diastolic 51–89; PULSE 78–107; RESP 15–22
[2016-06-12] MEDS: ACCU-CHEK XX SCH (02:00)
[2016-06-12 06:11] LABS: ADD SCAN DIFF NO
[2016-06-12 06:12] LABS: BASOPHILS % 0.2 % (0.0-2.0); EOSINOPHILS % 0.3 % (0.0-7.0); HEMATOCRIT 36.1 % (37.0-47.0); HEMOGLOBIN 10.9 g/dl (12.0-16.0); LYMPHOCYTES # 1.4 10^3/ul (0.8-2.9); LYMPHOCYTES % 8.9 % (15.0-51.0); MEAN CORPUSCULAR HEMOGLOBIN 27.3 pg (29.0-33.0); MEAN CORPUSCULAR HGB CONC 30.2 g/dl (32.0-37.0); MEAN CORPUSCULAR VOLUME 90.5 fl (82.0-101.0); MEAN PLATELET VOLUME 9.9 fl (7.4-10.4); MONOCYTE # 1.3 10^3/ul (0.3-0.9); MONOCYTES % 8.1 % (0.0-11.0); NEUTROPHIL # 12.7 10^3/ul (1.6-7.5); PLATELET COUNT 247 10^3/UL (140-415); RED BLOOD COUNT 3.99 10^6/ul (4.20-5.40); RED CELL DISTRIBUTION WIDTH 18.4 % (11.5-14.5); WHITE BLOOD COUNT 15.5 10^3/ul (4.8-10.8)
[2016-06-12 06:28] LABS: POTASSIUM 4.6 mmol/L (3.5-5.1)
[2016-06-12 06:31] LABS: CREATININE 0.76 mg/dl (0.44-1.00)
[2016-06-12 06:32] LABS: CALCIUM 9.1 mg/dl (8.4-10.2); MAGNESIUM 1.9 mg/dl (1.7-2.5)
[2016-06-12 06:32] LABS: CHOL/HDL RATIO 4.2 RATIO
[2016-06-12] MEDS: ACETAMINOPHEN 325 MG TAB PO PRN ×3 (06:49→21:02)
[2016-06-12] MEDS: INSULIN ASPART [NOVOLOG] 3 ML PEN SC SCH ×7 (08:16→21:09)
[2016-06-12] MEDS: CEFEPIME 1GM/50 ML (PMX) 50 ML IVPB SCH ×2 (08:17→22:07)
[2016-06-12] MEDS: BUMETANIDE 1 MG TAB PO SCH ×2 (08:17→17:32)
[2016-06-12] MEDS: DILTIAZEM (CD) 240 MG CAP PO SCH (08:18)
[2016-06-12] MEDS: SPIRONOLACTONE 25 MG TAB PO SCH (08:18)
[2016-06-12] MEDS: FAMOTIDINE 20 MG TAB PO SCH ×2 (08:18→21:02)
[2016-06-12] MEDS: METOPROLOL 25 MG TAB PO SCH ×2 (08:19→21:02)
[2016-06-12] MEDS: POTASSIUM CHLORIDE 20 MEQ POWDER FOR ORAL SOLN PO SCH (08:21)
[2016-06-12] MEDS: SALMETEROL/FLUTICASONE 250/50 INHA INH SCH ×2 (08:24→21:01)
--- NOTE | 2016-06-12 09:37 | CONS ---
Date/Time of Note Date/Time of Note DATE: 06/12/16 TIME: 09:37 Assessment/Plan Assessment/Plan Chief Complaint/Hosp Course Acute on chronic hypoxic respiratory failure - likely multifactorial including CHF, pleural effusion and possible PNA Acute on chronic diastolic heart failure - echocardiogram 11/14/2015 showed LVEF 55%. Likely at least mild-mod decompensation currently Chronic atrial fibrillation - HR overall controlled currently. On Eliquis at home Pneumonia/pleural effusion Chronic obstructive pulmonary disease - on 4 liters home oxygen at baseline Hypertension Dyslipidemia Diabetes mellitus -increase bumex to 1mg PO BID (similar bioavailability to IV but can switch to IV if does not respond) -ok to hold Eliquis for thoracentesis, restart when safe -continue metoprolol 25mg BID -continue digoxin 250mcg (levels were low so unclear compliance) -diltiazem 240mg daily -spironolactone 25mg daily -continue atorvastatin 40mg daily Problems: Consultation Date/Type/Reason Admit Date/Time 06/11/16 0307 Date of Consultation: Jun 12, 2016 Type of Consultation: Cardiology Reason for Consultation CHF, afib Referring Provider: KELLY LANDERS AUDIOLOGY DIRECTOR Hx of Present Illness 65 yo F with a h/o chronic diastolic heart failure, chronic atrial fibrillation on Eliquis, COPD, chronic hypoxic respiratory failure on 4L home oxygen, DM, HTN , who presented with SOB. The patient is well known to me from prior hospitalizations for heart failure and respiratory failure. She notes that she has had progressive dyspnea and her oxygen at home dropped to the 70s after walking. She also has been having a minimally productive cough and night sweats. Her edema has not been getting worse. She is compliant with her meds and diet but she does not know the dosing of her meds. per HPI Past Surgical History Past Surgical Hx: other Social History Alcohol Use: occasionally Smoking Status: Former smoker Drug Use: none Exam/Review of Systems Vital Signs Vitals Vital Signs Date Time Temp Pulse Resp B/P Pulse Ox O2 Delivery O2 Flow Rate FiO2 06/12/16 08:10 Nasal Cannula 5.0 06/12/16 08:00 107 06/12/16 04:52 98.8 15 123/73 94 06/11/16 16:49 40 Intake and Output 06/11/16 06/11/16 06/12/16 15:00 23:00 07:00 Intake Total 450 ml Balance 450 ml Exam Constitutional: alert, oriented Psych: no complaints Head: atraumatic, normocephalic Neck: jvd (10cm) Respiratory: crackles/rales, diminished breath sounds (on left), No clear to auscultation Cardiovascular: edema, No regular rate and rhythm (IRIR), No systolic murmur Gastrointestinal: non-tender, soft 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: nl mental status, nl speech Skin: No rash or lesions Results Result Diagram: 06/12/16 0534 06/12/16 0534 Results 24 hrs Laboratory Tests Test 06/11/16 15:00 06/11/16 16:41 06/11/16 20:34 06/11/16 20:50 Creatine Kinase 31 28 Creatine Kinase Index 2.2 2.2 Creatinine Kinase MB (Mass) 0.69 0.62 Troponin I < 0.012 < 0.012 Bedside Glucose 268 H 283 H Test 06/12/16 02:37 06/12/16 05:34 06/12/16 05:40 06/12/16 07:37 Bedside Glucose 193 243 H White Blood Count 15.5 H Red Blood Count 3.99 L Hemoglobin 10.9 L Hematocrit 36.1 L Mean Corpuscular Volume 90.5 Mean Corpuscular Hemoglobin 27.3 L Mean Corpuscular Hemoglobin Concent 30.2 L Red Cell Distribution Width 18.4 H Platelet Count 247 Mean Platelet Volume 9.9 Neutrophils % 82.0 H Lymphocytes % 8.9 L Monocytes % 8.1 Eosinophils % 0.3 Basophils % 0.2 Nucleated Red Blood Cells % 0.0 Neutrophils # 12.7 H Lymphocytes # 1.4 Monocytes # 1.3 H Eosinophils # 0.0 Basophils # 0.0 Nucleated Red Blood Cells # 0.0 Sodium Level 134 L Potassium Level 4.6 Chloride Level 89 L Carbon Dioxide Level 37 H Anion Gap 13 Blood Urea Nitrogen 14 Creatinine 0.76 Glucose Level 213 Hemoglobin A1c 8.8 H Calcium Level 9.1 Magnesium Level 1.9 Triglycerides Level 155 H Cholesterol Level 162 LDL Cholesterol, Calculated 93 HDL Cholesterol 38 Cholesterol/HDL Ratio 4.2 Medications Medications Current Medications Lorazepam (Ativan) 0.5 mg Q6H PRN IV ANXIETY; Start 06/11/16 at 06:00 Ondansetron HCl (Zofran Tab) 4 mg Q6H PRN PO NAUSEA AND/OR VOMITING; Start at 06:00 Metoclopramide HCl (Reglan) 10 mg Q6H PRN IV NAUSEA AND/OR VOMITING; Start at 06:00 Nitroglycerin (Nitroglycerin (Sl Tab) 0.4 Mg) 1 tab Q5M PRN SL CHEST PAIN; Start 06/11/16 at 06:00 Acetaminophen (Tylenol Tab) 650 mg Q6H PRN PO PAIN LEVEL 1-3 OR FEVER Last administered on 06/12/16 06:49; Admin Dose 650 MG; Start 06/11/16 at 06:00 Acetaminophen/ Hydrocodone Bitart ([place] (5/325)) 1 tab Q6H PRN PO PAIN LEVEL 4 -6; Start 06/11/16 at 06:00 Morphine Sulfate (morphine) 2 mg Q4H PRN IV PAIN LEVEL 7-10; Start 06/11/16 at 06:00 Famotidine (Pepcid) 20 mg Q12 PO Last administered on 06/12/16 08:18; Admin Dose 20 MG; Start 06/11/16 at 09:00 Atorvastatin Calcium (Lipitor) 40 mg HS PO Last administered on 06/11/16 20:37 ; Admin Dose 40 MG; Start 06/11/16 at 21:00 Bumetanide (Bumex) 1 mg DAILY PO Last administered on 06/12/16 08:17; Admin Dose 1 MG; Start 06/11/16 at 09:00 Digoxin (Digoxin) 0.25 mg DAILY@13 PO Last administered on 06/11/16 12:47; Admin Dose 0.25 MG; Start 06/11/16 at 13:00 Diltiazem HCl (Cardizem Cd) 240 mg DAILY PO Last administered on 06/12/16 08: 18; Admin Dose 240 MG; Start 06/11/16 at 09:00 Insulin Glargine (Lantus) 25 unit QHS SC Last administered on 06/11/16 20:53; Admin Dose 25 UNIT; Start 06/11/16 at 21:00 Metoprolol Tartrate (Lopressor) 25 mg BID PO Last administered on 06/12/16 08: 19; Admin Dose 25 MG; Start 06/11/16 at 09:00 Potassium Chloride (Potassium Chloride Pwd/Soln) 20 meq DAILY PO ; Start at 09:00 Salmeterol Xinafoate/ Fluticasone (Advair 250/50 Diskus) 1 inh BID INH Last administered on 06/12/16 08:24; Admin Dose 1 INH; Start 06/11/16 at 09:00 Spironolactone (Aldactone) 25 mg DAILY PO Last administered on 06/12/16 08:18 ; Admin Dose 25 MG; Start 06/11/16 at 09:00 Miscellaneous Information 1 ea NOTE XX ; Start 06/11/16 at 08:00 Glucose (Glutose) 15 gm Q15M PRN PO DECREASED GLUCOSE; Start 06/11/16 at 08:00 Glucose (Glutose) 22.5 gm Q15M PRN PO DECREASED GLUCOSE; Start 06/11/16 at 08: 00 Dextrose (D50w Syringe) 25 ml Q15M PRN IV DECREASED GLUCOSE; Start 06/11/16 at 08:00 Dextrose (D50w Syringe) 50 ml Q15M PRN IV DECREASED GLUCOSE; Start 06/11/16 at 08:00 Glucagon (Glucagen) 1 mg Q15M PRN IM DECREASED GLUCOSE; Start 06/11/16 at 08:00 Glucose (Glutose) 15 gm Q15M PRN BUCCAL DECREASED GLUCOSE; Start 06/11/16 at 08 :00 Diagnostic Test (Pha) 1 ea 1 ea 02 XX ; Start 06/12/16 at 02:00 Cefepime HCl 50 ml @ 100 mls/hr Q12 IVPB Last administered on 06/12/16 08:17 ; Admin Dose 100 MLS/HR; Start 06/11/16 at 21:00 Levofloxacin/ Dextrose (Levaquin 500mg/ D5W 100 ml (Pmx)) 100 ml @ 100 mls/hr Q24H IVPB Last administered on 06/11/16 16:52; Admin Dose 100 MLS/HR; Start at 16:30 AMY SLOAN Jun 12, 2016 09:37
[2016-06-12] MEDS: ENOXAPARIN 40 MG/0.4 ML SYG SC SCH (10:49)
--- NOTE | 2016-06-12 11:13 | PN ---
DATE: 06/12/2016 SUBJECTIVE DATA: Complains of exertional dyspnea even with minimal exertion. Denies any chest pain. OBJECTIVE DATA: VITAL SIGNS: Temperature 98.8, pulse rate 107, respiratory rate 15, blood pressure 123/73, oxygen saturation 94% on 5 liters oxygen via nasal cannula. GENERAL: This is a morbidly obese 65-year-old female patient sitting in a chair in no apparent distress. HEENT: Head normocephalic and atraumatic. Eyes: Anicteric sclerae. Conjunctivae clear. Nasal septum is midline. Oral mucosa is moist. NECK: Obese. Supple. RESPIRATORY: Bilaterally diminished breath sounds. Use of accessory muscles for respiration. Bilateral fine rales. CARDIOVASCULAR: S1, S2 heard. Irregularly irregular rhythm. ABDOMEN: Soft and nontender. Bowel sounds positive in all 4 quadrants. GENITOURINARY: Deferred. EXTREMITIES: No cyanosis. Bilateral lower extremity 2+ pitting edema. Peripheral pulses palpable. NEUROLOGIC: Cranial nerves II through XII are grossly intact. The patient is awake, alert, and oriented. LABORATORY AND DIAGNOSTIC DATA: WBC 15.5, hemoglobin 10.9, hematocrit 36.1, platelet count 247. Sodium 134, potassium 4.6, chloride 89, anion gap 13, BUN 14, creatinine 0.77, glucose 213, calcium 9.1, magnesium 1.9. ASSESSMENT: 1. Acute on chronic respiratory failure, hypoxic and hypercapnic, most probably secondary to chronic obstructive pulmonary disease along with a combination of congestive heart failure exacerbation (diastolic dysfunction). Continue inhaled bronchodilators. Continue supplemental oxygen. Being followed by cardiology and pulmonary. 2. Large left-sided pleural effusion with underlying atelectasis/ consolidation. The patient is on antibiotics. The patient is scheduled for ultrasound-guided thoracentesis of the left side. 3. Healthcare-associated pneumonia. Continue antibiotics. No evidence of any septic shock. 4. Acute on chronic diastolic heart failure. Continue cardiac medications. Cardiology following the patient. 5. Atrial fibrillation. Rate controlled. Continue rate control. Cardiology following the patient. Therapeutic anticoagulation will be deferred to cardiology. 6. Pulmonary hypertension. PA pressure of 45 mmHg as per 2D echocardiogram on 11/16/2015. Continue supplemental oxygen. 7. Type 2 diabetes mellitus. Hemoglobin A1c 8.8. Continue sliding scale insulin along with Lantus insulin and add premeal insulin. 8. Dyslipidemia. Continue statins. 9. Essential hypertension. Continue antihypertensives. 10. Chronic obstructive pulmonary disease with chronic hypoxia, dependent on home oxygen. Continue maintenance inhalers. 11. Hypochromic anemia. Etiology unclear. We will monitor the H and H closely. We will obtain an iron panel. 12. Fluid, electrolytes, and nutrition. Continue carbohydrate controlled low cholesterol diet. 13. Deep venous thrombosis prophylaxis. Subcutaneous Lovenox. 14. Gastrointestinal prophylaxis. Histamine 2 receptor blockers. PLAN: Continue telemetry monitoring. Continue current care. Await thoracentesis. The case discussed with Dr. Tsang. KELLY TSANG MD, AM/KIKE Conf#: [id number] DID#: [id number] MTDD
[2016-06-12 11:17] LABS: IRON 25 ug/dl (35-150)
[2016-06-12 11:27] LABS: TOTAL IRON BINDING CAPACITY 318 ug/dl (241-421)
[2016-06-12] MEDS: DIGOXIN 0.25 MG TAB PO SCH (12:31)
[2016-06-12] MEDS ORDERED: NPH, HUMAN INSULIN ISOPHANE 3ML VIAL SC ONE (13:00)
[2016-06-12] MEDS: IPRATROPIUM (NEB) 0.5 MG/2.5 ML AMP HHN PRN (15:58)
[2016-06-12] MEDS: LEVALBUTEROL (NEB) 1.25 MG/0.5 ML AMP HHN PRN (15:58)
[2016-06-12] MEDS: LEVOFLOXACIN 500MG/D5W (PMX) 100 ML IVPB SCH (16:32)
[2016-06-12] MEDS ORDERED: INSULIN GLARGINE [LANtus] 3 ML PEN SC SCH (21:00)
[2016-06-12] MEDS: ATORVASTATIN 40 MG TAB PO SCH (21:02)
[2016-06-12] MEDS: FERROUS GLUCONATE (EC) 325 MG TAB PO SCH (21:02)
[2016-06-12] MEDS: INSULIN GLARGINE [LANtus] 3 ML PEN SC SCH (21:20)
[2016-06-13] VITALS (12 sets, daily range): BP systolic 105–129; BP diastolic 58–74; PULSE 73–109; RESP 15–20
[2016-06-13] MEDS: ACCU-CHEK XX SCH (02:00)
[2016-06-13] MEDS: BUMETANIDE 1 MG TAB PO SCH ×2 (06:25→17:03)
[2016-06-13] MEDS: ACETAMINOPHEN 325 MG TAB PO PRN ×2 (06:30→15:21)
[2016-06-13 07:34] LABS: ADD SCAN DIFF NO
[2016-06-13 07:42] LABS: BASOPHILS % 0.2 % (0.0-2.0); EOSINOPHILS % 0.2 % (0.0-7.0); HEMATOCRIT 34.2 % (37.0-47.0); HEMOGLOBIN 10.4 g/dl (12.0-16.0); LYMPHOCYTES # 1.7 10^3/ul (0.8-2.9); LYMPHOCYTES % 10.1 % (15.0-51.0); MEAN CORPUSCULAR HEMOGLOBIN 27.4 pg (29.0-33.0); MEAN CORPUSCULAR HGB CONC 30.4 g/dl (32.0-37.0); MEAN PLATELET VOLUME 10.6 fl (7.4-10.4); MONOCYTE # 1.4 10^3/ul (0.3-0.9); MONOCYTES % 8.2 % (0.0-11.0); NEUTROPHIL # 13.4 10^3/ul (1.6-7.5); NEUTROPHILS % 80.7 % (39.0-77.0); PLATELET COUNT 276 10^3/UL (140-415); RED CELL DISTRIBUTION WIDTH 18.5 % (11.5-14.5); WHITE BLOOD COUNT 16.6 10^3/ul (4.8-10.8)
[2016-06-13 08:02] LABS: POTASSIUM 4.2 mmol/L (3.5-5.1)
[2016-06-13] MEDS: SALMETEROL/FLUTICASONE 250/50 INHA INH SCH ×2 (08:04→22:06)
[2016-06-13 08:05] LABS: CREATININE 0.85 mg/dl (0.44-1.00)
[2016-06-13 08:06] LABS: CALCIUM 8.7 mg/dl (8.4-10.2)
[2016-06-13] MEDS: INSULIN ASPART [NOVOLOG] 3 ML PEN SC SCH ×7 (08:07→21:00)
[2016-06-13 08:09] LABS: MAGNESIUM 1.8 mg/dl (1.7-2.5); PHOSPHORUS 3.5 mg/dl (2.5-4.9)
[2016-06-13] MEDS: POTASSIUM CHLORIDE 20 MEQ POWDER FOR ORAL SOLN PO SCH ×2 (08:43→08:49)
[2016-06-13] MEDS: FERROUS GLUCONATE (EC) 325 MG TAB PO SCH ×2 (08:43→22:06)
[2016-06-13] MEDS: CEFEPIME 1GM/50 ML (PMX) 50 ML IVPB SCH ×2 (08:43→22:06)
[2016-06-13] MEDS: FAMOTIDINE 20 MG TAB PO SCH ×2 (08:44→22:06)
[2016-06-13] MEDS: METOPROLOL 25 MG TAB PO SCH ×2 (08:44→22:07)
[2016-06-13] MEDS: SPIRONOLACTONE 25 MG TAB PO SCH (08:44)
[2016-06-13] MEDS: DILTIAZEM (CD) 240 MG CAP PO SCH (08:45)
[2016-06-13] MEDS: ENOXAPARIN 40 MG/0.4 ML SYG SC SCH (08:48)
[2016-06-13] MEDS: DIGOXIN 0.25 MG TAB PO SCH (13:57)
--- NOTE | 2016-06-13 16:12 | PN ---
Date/Time of Note Date/Time of Note DATE: 06/13/16 TIME: 16:06 Assessment/Plan VTE Prophylaxis VTE Prophylaxis Intervention: LMWH Lines/Catheters IV Catheter Type (from [facility]): Saline Lock Assessment/Plan Chief Complaint/Hosp Course Assessment and plan 1. Acute on chronic respiratory failure multifactorial. Patient noted with COPD as well as CHF. Continue on bronchodilators. Continue on oxygen. Patient on Lasix. 2. Large subsided pleural effusion with underlying atelectasis/consolidation. Tentative plan for thoracentesis per manager underwriting. We'll follow-up 3. Healthcare associated pneumonia. Continue antibiotics. 4. Pulmonary hypertension. Patient noted with PASP of 45 mmHg. continue on supplemental oxygen. continue diuretics 5. Type 2 diabetes. A1c 8.8. Is on insulin regimen. We'll adjust as needed 6. Essential hypertension. Continue on anti-hypertensives and adjust as needed 7. COPD. Patient oxygen dependent. Titrate down on O2 as tolerated. Continue on bronchodilators therapy Disposition and plan: Still noted with shortness of breath. Tentative plan for thoracentesis by manager underwriting. Await clinical improvement of respiratory status Discussed plan of care with Dr. Adams Problems: Subjective 24 Hr Interval Summary Free Text/Dictation Still reports having shortness of breath and moderate dyspnea on exertion Exam/Review of Systems Vital Signs Vitals Vital Signs Date Time Temp Pulse Resp B/P Pulse Ox O2 Delivery O2 Flow Rate FiO2 06/13/16 15:41 4.0 06/13/16 15:29 98.3 73 20 125/74 92 06/13/16 08:00 Nasal Cannula 06/11/16 16:49 40 Intake and Output 06/12/16 06/12/16 06/13/16 14:59 22:59 06:59 Intake Total 500 ml 950 ml 350 ml Output Total 1100 ml 950 ml Balance -600 ml 950 ml -600 ml Exam General: No acute signs or symptoms of distress Eyes: pupils equal round, Anicteric sclera Neck: Supple nontender, no JVD Cardiac: Regular rate at this time Pulmonary: Diminished at lung bases GI: Abdomen soft nontender nondistended, bowel sounds active Extremities: Bilateral lower extremities edema Skin: Clean dry and intact Neurologic: Alert to person place and time and situation Results Result Diagram: 06/13/16 0635 06/13/16 0635 Results 24 hrs Laboratory Tests Test 06/12/16 16:38 06/12/16 20:57 06/13/16 02:33 06/13/16 06:35 Bedside Glucose 274 H 255 H 176 White Blood Count 16.6 H Red Blood Count 3.80 L Hemoglobin 10.4 L Hematocrit 34.2 L Mean Corpuscular Volume 90.0 Mean Corpuscular Hemoglobin 27.4 L Mean Corpuscular Hemoglobin Concent 30.4 L Red Cell Distribution Width 18.5 H Platelet Count 276 Mean Platelet Volume 10.6 H Neutrophils % 80.7 H Lymphocytes % 10.1 L Monocytes % 8.2 Eosinophils % 0.2 Basophils % 0.2 Nucleated Red Blood Cells % 0.0 Neutrophils # 13.4 H Lymphocytes # 1.7 Monocytes # 1.4 H Eosinophils # 0.0 Basophils # 0.0 Nucleated Red Blood Cells # 0.0 Sodium Level 129 L Potassium Level 4.2 Chloride Level 85 L Carbon Dioxide Level 38 H Anion Gap 10 Blood Urea Nitrogen 18 Creatinine 0.85 Glucose Level 196 Calcium Level 8.7 Phosphorus Level 3.5 Magnesium Level 1.8 Test 06/13/16 08:01 06/13/16 12:03 Bedside Glucose 204 292 H Medications Medications Current Medications Lorazepam (Ativan) 0.5 mg Q6H PRN IV ANXIETY; Start 06/11/16 at 06:00 Ondansetron HCl (Zofran Tab) 4 mg Q6H PRN PO NAUSEA AND/OR VOMITING; Start at 06:00 Metoclopramide HCl (Reglan) 10 mg Q6H PRN IV NAUSEA AND/OR VOMITING; Start at 06:00 Nitroglycerin (Nitroglycerin (Sl Tab) 0.4 Mg) 1 tab Q5M PRN SL CHEST PAIN; Start 06/11/16 at 06:00 Acetaminophen (Tylenol Tab) 650 mg Q6H PRN PO PAIN LEVEL 1-3 OR FEVER Last administered on 06/13/16t 15:21; Admin Dose 650 MG; Start 06/11/16 at 06:00 Acetaminophen/ Hydrocodone Bitart ([place] (5/325)) 1 tab Q6H PRN PO PAIN LEVEL 4 -6; Start 06/11/16 at 06:00 Morphine Sulfate (morphine) 2 mg Q4H PRN IV PAIN LEVEL 7-10; Start 06/11/16 at 06:00 Famotidine (Pepcid) 20 mg Q12 PO Last administered on 06/13/16 08:44; Admin Dose 20 MG; Start 06/11/16 at 09:00 Atorvastatin Calcium (Lipitor) 40 mg HS PO Last administered on 06/12/16 21:02 ; Admin Dose 40 MG; Start 06/11/16 at 21:00 Digoxin (Digoxin) 0.25 mg DAILY@13 PO Last administered on 06/13/16 13:57; Admin Dose 0.25 MG; Start 06/11/16 at 13:00 Diltiazem HCl (Cardizem Cd) 240 mg DAILY PO Last administered on 06/13/16 08: 45; Admin Dose 240 MG; Start 06/11/16 at 09:00 Metoprolol Tartrate (Lopressor) 25 mg BID PO Last administered on 06/13/16 08: 44; Admin Dose 25 MG; Start 06/11/16 at 09:00 Potassium Chloride (Potassium Chloride Pwd/Soln) 20 meq DAILY PO ; Start at 09:00 Salmeterol Xinafoate/ Fluticasone (Advair 250/50 Diskus) 1 inh BID INH Last administered on 06/13/16 08:04; Admin Dose 1 INH; Start 06/11/16 at 09:00 Spironolactone (Aldactone) 25 mg DAILY PO Last administered on 06/13/16 08:44 ; Admin Dose 25 MG; Start 06/11/16 at 09:00 Miscellaneous Information 1 ea NOTE XX ; Start 06/11/16 at 08:00 Glucose (Glutose) 15 gm Q15M PRN PO DECREASED GLUCOSE; Start 06/11/16 at 08:00 Glucose (Glutose) 22.5 gm Q15M PRN PO DECREASED GLUCOSE; Start 06/11/16 at 08: 00 Dextrose (D50w Syringe) 25 ml Q15M PRN IV DECREASED GLUCOSE; Start 06/11/16 at 08:00 Dextrose (D50w Syringe) 50 ml Q15M PRN IV DECREASED GLUCOSE; Start 06/11/16 at 08:00 Glucagon (Glucagen) 1 mg Q15M PRN IM DECREASED GLUCOSE; Start 06/11/16 at 08:00 Glucose (Glutose) 15 gm Q15M PRN BUCCAL DECREASED GLUCOSE; Start 06/11/16 at 08 :00 Diagnostic Test (Pha) 1 ea 1 ea 02 XX ; Start 06/12/16 at 02:00 Cefepime HCl 50 ml @ 100 mls/hr Q12 IVPB Last administered on 06/13/16 08:43 ; Admin Dose 100 MLS/HR; Start 06/11/16 at 21:00 Levofloxacin/ Dextrose (Levaquin 500mg/ D5W 100 ml (Pmx)) 100 ml @ 100 mls/hr Q24H IVPB Last administered on 06/12/16 16:32; Admin Dose 100 MLS/HR; Start at 16:30 Enoxaparin Sodium (Lovenox) 40 mg DAILY SC Last administered on 06/13/16 08:48 ; Admin Dose 40 MG; Start 06/12/16 at 11:00 Ferrous Gluconate (Fergon) 325 mg BID PO Last administered on 06/13/16 08:43; Admin Dose 325 MG; Start 06/12/16 at 21:00 Insulin Glargine (Lantus) 36 unit QHS SC Last administered on 06/12/16 21:20; Admin Dose 36 UNIT; Start 06/12/16 at 21:00 EDUARDO GOLDSTEIN Jun 13, 2016 16:12
[2016-06-13] MEDS: LEVOFLOXACIN 500MG/D5W (PMX) 100 ML IVPB SCH (16:57)
[2016-06-13] MEDS: ATORVASTATIN 40 MG TAB PO SCH (22:06)
[2016-06-13] MEDS: INSULIN GLARGINE [LANtus] 3 ML PEN SC SCH (22:33)
[2016-06-14] VITALS (11 sets, daily range): BP systolic 107–126; BP diastolic 59–77; PULSE 75–118; RESP 15–20
[2016-06-14] MEDS: ACCU-CHEK XX SCH (02:00)
[2016-06-14] MEDS: BUMETANIDE 1 MG TAB PO SCH ×2 (06:10→17:28)
[2016-06-14] MEDS: ACETAMINOPHEN 325 MG TAB PO PRN ×2 (07:05→15:30)
[2016-06-14] MEDS: SPIRONOLACTONE 25 MG TAB PO SCH (08:42)
[2016-06-14] MEDS: SALMETEROL/FLUTICASONE 250/50 INHA INH SCH ×2 (08:42→21:11)
[2016-06-14] MEDS: FERROUS GLUCONATE (EC) 325 MG TAB PO SCH ×2 (08:42→21:12)
[2016-06-14] MEDS: CEFEPIME 1GM/50 ML (PMX) 50 ML IVPB SCH ×2 (08:42→21:12)
[2016-06-14] MEDS: POTASSIUM CHLORIDE 20 MEQ POWDER FOR ORAL SOLN PO SCH (08:42)
[2016-06-14] MEDS: FAMOTIDINE 20 MG TAB PO SCH ×2 (08:42→21:12)
[2016-06-14] MEDS: METOPROLOL 25 MG TAB PO SCH ×2 (08:43→21:12)
[2016-06-14] MEDS: DILTIAZEM (CD) 240 MG CAP PO SCH (08:43)
[2016-06-14] MEDS: INSULIN ASPART [NOVOLOG] 3 ML PEN SC SCH ×7 (08:49→21:17)
[2016-06-14] MEDS: ENOXAPARIN 40 MG/0.4 ML SYG SC SCH (08:51)
--- NOTE | 2016-06-14 10:36 | CONS ---
Date/Time of Note Date/Time of Note DATE: 06/14/16 TIME: 10:34 Assessment/Plan Assessment/Plan Additional Assessment/Plan Assessment recommendations; next 1. Patient admitted for acute bronchospasm with left lower lobe pneumonia. 2. Remote history of right breast cancer. 3. History of diabetes and hypertension. 4. Possibly mild CHF. Continue current treatment. Obtain a follow-up chest x-ray in 24 hours. Consultation Date/Type/Reason Admit Date/Time Jun 11, 2016 at 14:17 Initial Consult Date 06/12/16 Type of Consultation: pulmonary Referring Provider: KELLY LANDERS GRAPE GROWER 24 HR Interval Summary Free Text/Dictation Patient condition is stable. She is reporting decreased shortness of breath. Denies any coughing, wheezing, chest pain fever or chills. General exam; elderly lady, awake and alert currently in no distress. Sitting in a chair at bedside. Exam/Review of Systems Vital Signs Vitals Vital Signs Date Time Temp Pulse Resp B/P Pulse Ox O2 Delivery O2 Flow Rate FiO2 06/14/16 08:09 118 06/14/16 07:40 97.5 20 121/72 95 06/13/16 20:00 Nasal Cannula 5.0 06/11/16 16:49 40 Intake and Output 06/13/16 06/13/16 06/14/16 15:00 23:00 07:00 Intake Total 850 ml 240 ml Output Total 1400 ml Balance 850 ml -1160 ml Exam HEENT examination; supple neck, no JVD. No lymphadenopathy. Midline trachea. No thyromegaly. Pharynx is clear. Pupils are midsize and reactive to light. She has a few missing teeth. Chest examination; diminished breath sound bilaterally without any added sounds. S1-S2 audible, no murmurs. Regular rhythm. Abdomen examination; soft, protuberant. Bowel sounds audible. No organomegaly. Nontender. Extremity exam is; no peripheral edema. Pulses 1+ bilaterally. FITNESS INSTRUCTOR examination; no focal deficit. Results Result Diagram: 06/13/16 0635 06/13/16 0635 Results 24 hrs Laboratory Tests Test 06/13/16 12:03 06/13/16 16:56 06/13/16 20:57 06/14/16 07:51 Bedside Glucose 292 H 219 168 150 Medications Medications Current Medications Lorazepam (Ativan) 0.5 mg Q6H PRN IV ANXIETY; Start 06/11/16 at 06:00 Ondansetron HCl (Zofran Tab) 4 mg Q6H PRN PO NAUSEA AND/OR VOMITING; Start at 06:00 Metoclopramide HCl (Reglan) 10 mg Q6H PRN IV NAUSEA AND/OR VOMITING; Start at 06:00 Nitroglycerin (Nitroglycerin (Sl Tab) 0.4 Mg) 1 tab Q5M PRN SL CHEST PAIN; Start 06/11/16 at 06:00 Acetaminophen (Tylenol Tab) 650 mg Q6H PRN PO PAIN LEVEL 1-3 OR FEVER Last administered on 06/14/16 07:05; Admin Dose 650 MG; Start 06/11/16 at 06:00 Acetaminophen/ Hydrocodone Bitart ([place] (5/325)) 1 tab Q6H PRN PO PAIN LEVEL 4 -6; Start 06/11/16 at 06:00 Morphine Sulfate (morphine) 2 mg Q4H PRN IV PAIN LEVEL 7-10; Start 06/11/16 at 06:00 Famotidine (Pepcid) 20 mg Q12 PO Last administered on 06/14/16 08:42; Admin Dose 20 MG; Start 06/11/16 at 09:00 Atorvastatin Calcium (Lipitor) 40 mg HS PO Last administered on 06/13/16 22:06 ; Admin Dose 40 MG; Start 06/11/16 at 21:00 Digoxin (Digoxin) 0.25 mg DAILY@13 PO Last administered on 06/13/16 13:57; Admin Dose 0.25 MG; Start 06/11/16 at 13:00 Diltiazem HCl (Cardizem Cd) 240 mg DAILY PO Last administered on 06/14/16 08: 43; Admin Dose 240 MG; Start 06/11/16 at 09:00 Metoprolol Tartrate (Lopressor) 25 mg BID PO Last administered on 06/14/16 08: 43; Admin Dose 25 MG; Start 06/11/16 at 09:00 Potassium Chloride (Potassium Chloride Pwd/Soln) 20 meq DAILY PO Last administered on 06/14/16 08:42; Admin Dose 20 MEQ; Start 06/11/16 at 09:00 Salmeterol Xinafoate/ Fluticasone (Advair 250/50 Diskus) 1 inh BID INH Last administered on 06/14/16 08:42; Admin Dose 1 INH; Start 06/11/16 at 09:00 Spironolactone (Aldactone) 25 mg DAILY PO Last administered on 06/14/16 08:42 ; Admin Dose 25 MG; Start 06/11/16 at 09:00 Miscellaneous Information 1 ea NOTE XX ; Start 06/11/16 at 08:00 Glucose (Glutose) 15 gm Q15M PRN PO DECREASED GLUCOSE; Start 06/11/16 at 08:00 Glucose (Glutose) 22.5 gm Q15M PRN PO DECREASED GLUCOSE; Start 06/11/16 at 08: 00 Dextrose (D50w Syringe) 25 ml Q15M PRN IV DECREASED GLUCOSE; Start 06/11/16 at 08:00 Dextrose (D50w Syringe) 50 ml Q15M PRN IV DECREASED GLUCOSE; Start 06/11/16 at 08:00 Glucagon (Glucagen) 1 mg Q15M PRN IM DECREASED GLUCOSE; Start 06/11/16 at 08:00 Glucose (Glutose) 15 gm Q15M PRN BUCCAL DECREASED GLUCOSE; Start 06/11/16 at 08 :00 Diagnostic Test (Pha) 1 ea 1 ea 02 XX ; Start 06/12/16 at 02:00 Cefepime HCl 50 ml @ 100 mls/hr Q12 IVPB Last administered on 06/14/16 08:42 ; Admin Dose 100 MLS/HR; Start 06/11/16 at 21:00 Levofloxacin/ Dextrose (Levaquin 500mg/ D5W 100 ml (Pmx)) 100 ml @ 100 mls/hr Q24H IVPB Last administered on 06/13/16 16:57; Admin Dose 100 MLS/HR; Start at 16:30 Enoxaparin Sodium (Lovenox) 40 mg DAILY SC Last administered on 06/14/16 08:51 ; Admin Dose 40 MG; Start 06/12/16 at 11:00 Ferrous Gluconate (Fergon) 325 mg BID PO Last administered on 06/14/16 08:42; Admin Dose 325 MG; Start 06/12/16 at 21:00 Insulin Glargine (Lantus) 36 unit QHS SC Last administered on 06/13/16 22:33; Admin Dose 36 UNIT; Start 06/12/16 at 21:00 MAGALYS CHAPIN Jun 14, 2016 10:36
[2016-06-14] MEDS: DIGOXIN 0.25 MG TAB PO SCH (12:25)
--- NOTE | 2016-06-14 14:55 | PN ---
Date/Time of Note Date/Time of Note DATE: 06/14/16 TIME: 14:53 Assessment/Plan VTE Prophylaxis VTE Prophylaxis Intervention: LMWH Lines/Catheters [facility] Saline Lock Assessment/Plan Chief Complaint/Hosp Course Assessment and plan 1. Acute on chronic respiratory failure multifactorial. Patient noted with COPD as well as CHF. Continue on bronchodilators. Titrate down O2 as tolerated. Continue diuretic therapy. Await clinical improvement of respiratory status 2. Large subsided pleural effusion with underlying atelectasis/consolidation. Diuretics per program clerk. Follow-up with recommendations 3. Healthcare associated pneumonia. Continue antibiotics. Stable at present 4. Pulmonary hypertension. Patient noted with PASP of 45 mmHg. continue on supplemental oxygen. Diuretics as needed. 5. Type 2 diabetes. A1c 8.8. Is on insulin regimen. We'll adjust as needed. Stable at present 6. Essential hypertension. Continue on anti-hypertensives and adjust as needed 7. COPD. Patient oxygen dependent. Titrate down on O2 as tolerated. Continue on bronchodilators therapy Disposition and plan: Still noted with shortness of breath. Continue current regimen. Await clinical improvement. Discussed plan of care with Dr. Adams Problems: Subjective 24 Hr Interval Summary Free Text/Dictation Still reports having moderate dyspnea on exertion. Sitting in chair. Exam/Review of Systems Vital Signs Vitals Vital Signs Date Time Temp Pulse Resp B/P Pulse Ox O2 Delivery O2 Flow Rate FiO2 06/14/16 12:20 87 06/14/16 11:40 97.6 19 107/77 91 06/14/16 08:00 Nasal Cannula 5.0 06/11/16 16:49 40 Intake and Output 06/13/16 06/13/16 06/14/16 15:00 23:00 07:00 Intake Total 850 ml 240 ml Output Total 1400 ml Balance 850 ml -1160 ml Exam General: Minimal distress secondary shortness of breath Eyes: pupils equal round, Anicteric sclera Neck: No obvious JVD seen Cardiac: S1, S2 auscultated, regular rhythm and rate Pulmonary: Diminished lung bases GI: Soft nontender Extremities: Edema noted bilateral lower extremities Skin: Clean dry and intact Neurologic: Alert to person place and time and situation Results Result Diagram: 06/13/16 0635 06/13/16 0635 Results 24 hrs Laboratory Tests Test 06/13/16 16:56 06/13/16 20:57 06/14/16 07:51 Bedside Glucose 219 168 150 Medications Medications Current Medications Lorazepam (Ativan) 0.5 mg Q6H PRN IV ANXIETY; Start 06/11/16 at 06:00 Ondansetron HCl (Zofran Tab) 4 mg Q6H PRN PO NAUSEA AND/OR VOMITING; Start at 06:00 Metoclopramide HCl (Reglan) 10 mg Q6H PRN IV NAUSEA AND/OR VOMITING; Start at 06:00 Nitroglycerin (Nitroglycerin (Sl Tab) 0.4 Mg) 1 tab Q5M PRN SL CHEST PAIN; Start 06/11/16 at 06:00 Acetaminophen (Tylenol Tab) 650 mg Q6H PRN PO PAIN LEVEL 1-3 OR FEVER Last administered on 06/14/16 07:05; Admin Dose 650 MG; Start 06/11/16 at 06:00 Acetaminophen/ Hydrocodone Bitart ([employer] (5/325)) 1 tab Q6H PRN PO PAIN LEVEL 4 -6; Start 06/11/16 at 06:00 Morphine Sulfate (morphine) 2 mg Q4H PRN IV PAIN LEVEL 7-10; Start 06/11/16 at 06:00 Famotidine (Pepcid) 20 mg Q12 PO Last administered on 06/14/16 08:42; Admin Dose 20 MG; Start 06/11/16 at 09:00 Atorvastatin Calcium (Lipitor) 40 mg HS PO Last administered on 06/13/16 22:06 ; Admin Dose 40 MG; Start 06/11/16 at 21:00 Digoxin (Digoxin) 0.25 mg DAILY@13 PO Last administered on 06/14/16 12:25; Admin Dose 0.25 MG; Start 06/11/16 at 13:00 Diltiazem HCl (Cardizem Cd) 240 mg DAILY PO Last administered on 06/14/16 08: 43; Admin Dose 240 MG; Start 06/11/16 at 09:00 Metoprolol Tartrate (Lopressor) 25 mg BID PO Last administered on 06/14/16 08: 43; Admin Dose 25 MG; Start 06/11/16 at 09:00 Potassium Chloride (Potassium Chloride Pwd/Soln) 20 meq DAILY PO Last administered on 06/14/16 08:42; Admin Dose 20 MEQ; Start 06/11/16 at 09:00 Salmeterol Xinafoate/ Fluticasone (Advair 250/50 Diskus) 1 inh BID INH Last administered on 06/14/16 08:42; Admin Dose 1 INH; Start 06/11/16 at 09:00 Spironolactone (Aldactone) 25 mg DAILY PO Last administered on 06/14/16 08:42 ; Admin Dose 25 MG; Start 06/11/16 at 09:00 Miscellaneous Information 1 ea NOTE XX ; Start 06/11/16 at 08:00 Glucose (Glutose) 15 gm Q15M PRN PO DECREASED GLUCOSE; Start 06/11/16 at 08:00 Glucose (Glutose) 22.5 gm Q15M PRN PO DECREASED GLUCOSE; Start 06/11/16 at 08: 00 Dextrose (D50w Syringe) 25 ml Q15M PRN IV DECREASED GLUCOSE; Start 06/11/16 at 08:00 Dextrose (D50w Syringe) 50 ml Q15M PRN IV DECREASED GLUCOSE; Start 06/11/16 at 08:00 Glucagon (Glucagen) 1 mg Q15M PRN IM DECREASED GLUCOSE; Start 06/11/16 at 08:00 Glucose (Glutose) 15 gm Q15M PRN BUCCAL DECREASED GLUCOSE; Start 06/11/16 at 08 :00 Diagnostic Test (Pha) 1 ea 1 ea 02 XX ; Start 06/12/16 at 02:00 Cefepime HCl 50 ml @ 100 mls/hr Q12 IVPB Last administered on 06/14/16 08:42 ; Admin Dose 100 MLS/HR; Start 06/11/16 at 21:00 Levofloxacin/ Dextrose (Levaquin 500mg/ D5W 100 ml (Pmx)) 100 ml @ 100 mls/hr Q24H IVPB Last administered on 06/13/16 16:57; Admin Dose 100 MLS/HR; Start at 16:30 Enoxaparin Sodium (Lovenox) 40 mg DAILY SC Last administered on 06/14/16 08:51 ; Admin Dose 40 MG; Start 06/12/16 at 11:00 Ferrous Gluconate (Fergon) 325 mg BID PO Last administered on 06/14/16 08:42; Admin Dose 325 MG; Start 06/12/16 at 21:00 Insulin Glargine (Lantus) 36 unit QHS SC Last administered on 06/13/16t 22:33; Admin Dose 36 UNIT; Start 06/12/16 at 21:00 EDUARDO GOLDSTEIN Jun 14, 2016 14:55
[2016-06-14] MEDS: IPRATROPIUM (NEB) 0.5 MG/2.5 ML AMP HHN PRN (15:39)
[2016-06-14] MEDS: LEVALBUTEROL (NEB) 1.25 MG/0.5 ML AMP HHN PRN (15:39)
[2016-06-14] MEDS: LEVOFLOXACIN 500MG/D5W (PMX) 100 ML IVPB SCH (17:21)
--- NOTE | 2016-06-14 18:54 | CONS ---
Date/Time of Note Date/Time of Note DATE: 06/14/16 TIME: 18:52 Assessment/Plan Assessment/Plan Chief Complaint/Hosp Course Acute on chronic hypoxic respiratory failure - likely multifactorial including CHF, pleural effusion and possible PNA Acute on chronic diastolic heart failure - echocardiogram 11/14/2015 showed LVEF 55% Chronic atrial fibrillation - HR overall controlled currently. On Eliquis at home Pneumonia/pleural effusion Chronic obstructive pulmonary disease - on 4 liters home oxygen at baseline Hypertension Dyslipidemia Diabetes mellitus -continue Bumex 1mg PO BID -consider thoracentesis - ok to hold Eliquis for thoracentesis and restart when safe -continue metoprolol 25mg BID -continue digoxin 250mcg (levels were low so unclear compliance) -diltiazem 240mg daily -spironolactone 25mg daily -continue atorvastatin 40mg daily Problems: Consultation Date/Type/Reason Admit Date/Time Jun 11, 2016 at 14:17 Initial Consult Date 06/12/16 Type of Consultation: Cardiology 24 HR Interval Summary Free Text/Dictation Continues to have shortness of breath. Detailed Summary Additional Comments 14 point review of systems without changes. Exam/Review of Systems Vital Signs Vitals Vital Signs Date Time Temp Pulse Resp B/P Pulse Ox O2 Delivery O2 Flow Rate FiO2 06/14/16 16:06 75 06/14/16 15:57 4.0 06/14/16 15:40 21 96 Nasal Cannula 40 06/14/16 15:13 97.6 126/59 Intake and Output 06/13/16 06/13/16 06/14/16 15:00 23:00 07:00 Intake Total 850 ml 240 ml Output Total 1400 ml Balance 850 ml -1160 ml Exam Constitutional: alert, oriented Psych: no complaints Head: atraumatic, normocephalic Neck: jvd (10cm) Respiratory: crackles/rales, diminished breath sounds (on left), No clear to auscultation Cardiovascular: edema, No regular rate and rhythm (IRIR), No systolic murmur Gastrointestinal: non-tender, soft 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: nl mental status, nl speech Skin: No rash or lesions Results Result Diagram: 06/13/16 0635 06/13/16 0635 Results 24 hrs Laboratory Tests Test 06/13/16 20:57 06/14/16 07:51 Bedside Glucose 168 150 Medications Medications Current Medications Lorazepam (Ativan) 0.5 mg Q6H PRN IV ANXIETY; Start 06/11/16 at 06:00 Ondansetron HCl (Zofran Tab) 4 mg Q6H PRN PO NAUSEA AND/OR VOMITING; Start at 06:00 Metoclopramide HCl (Reglan) 10 mg Q6H PRN IV NAUSEA AND/OR VOMITING; Start at 06:00 Nitroglycerin (Nitroglycerin (Sl Tab) 0.4 Mg) 1 tab Q5M PRN SL CHEST PAIN; Start 06/11/16 at 06:00 Acetaminophen (Tylenol Tab) 650 mg Q6H PRN PO PAIN LEVEL 1-3 OR FEVER Last administered on 06/14/16 15:30; Admin Dose 650 MG; Start 06/11/16 at 06:00 Acetaminophen/ Hydrocodone Bitart ([place] (5/325)) 1 tab Q6H PRN PO PAIN LEVEL 4 -6; Start 06/11/16 at 06:00 Morphine Sulfate (morphine) 2 mg Q4H PRN IV PAIN LEVEL 7-10; Start 06/11/16 at 06:00 Famotidine (Pepcid) 20 mg Q12 PO Last administered on 06/14/16 08:42; Admin Dose 20 MG; Start 06/11/16 at 09:00 Atorvastatin Calcium (Lipitor) 40 mg HS PO Last administered on 06/13/16 22:06 ; Admin Dose 40 MG; Start 06/11/16 at 21:00 Digoxin (Digoxin) 0.25 mg DAILY@13 PO Last administered on 06/14/16 12:25; Admin Dose 0.25 MG; Start 06/11/16 at 13:00 Diltiazem HCl (Cardizem Cd) 240 mg DAILY PO Last administered on 06/14/16 08: 43; Admin Dose 240 MG; Start 06/11/16 at 09:00 Metoprolol Tartrate (Lopressor) 25 mg BID PO Last administered on 06/14/16 08: 43; Admin Dose 25 MG; Start 06/11/16 at 09:00 Potassium Chloride (Potassium Chloride Pwd/Soln) 20 meq DAILY PO Last administered on 06/14/16 08:42; Admin Dose 20 MEQ; Start 06/11/16 at 09:00 Salmeterol Xinafoate/ Fluticasone (Advair 250/50 Diskus) 1 inh BID INH Last administered on 06/14/16 08:42; Admin Dose 1 INH; Start 06/11/16 at 09:00 Spironolactone (Aldactone) 25 mg DAILY PO Last administered on 06/14/16 08:42 ; Admin Dose 25 MG; Start 06/11/16 at 09:00 Miscellaneous Information 1 ea NOTE XX ; Start 06/11/16 at 08:00 Glucose (Glutose) 15 gm Q15M PRN PO DECREASED GLUCOSE; Start 06/11/16 at 08:00 Glucose (Glutose) 22.5 gm Q15M PRN PO DECREASED GLUCOSE; Start 06/11/16 at 08: 00 Dextrose (D50w Syringe) 25 ml Q15M PRN IV DECREASED GLUCOSE; Start 06/11/16 at 08:00 Dextrose (D50w Syringe) 50 ml Q15M PRN IV DECREASED GLUCOSE; Start 06/11/16 at 08:00 Glucagon (Glucagen) 1 mg Q15M PRN IM DECREASED GLUCOSE; Start 06/11/16 at 08:00 Glucose (Glutose) 15 gm Q15M PRN BUCCAL DECREASED GLUCOSE; Start 06/11/16 at 08 :00 Diagnostic Test (Pha) 1 ea 1 ea 02 XX ; Start 06/12/16 at 02:00 Cefepime HCl 50 ml @ 100 mls/hr Q12 IVPB Last administered on 06/14/16 08:42 ; Admin Dose 100 MLS/HR; Start 06/11/16 at 21:00 Levofloxacin/ Dextrose (Levaquin 500mg/ D5W 100 ml (Pmx)) 100 ml @ 100 mls/hr Q24H IVPB Last administered on 06/14/16 17:21; Admin Dose 100 MLS/HR; Start at 16:30 Enoxaparin Sodium (Lovenox) 40 mg DAILY SC Last administered on 06/14/16 08:51 ; Admin Dose 40 MG; Start 06/12/16 at 11:00 Ferrous Gluconate (Fergon) 325 mg BID PO Last administered on 06/14/16 08:42; Admin Dose 325 MG; Start 06/12/16 at 21:00 Insulin Glargine (Lantus) 36 unit QHS SC Last administered on 06/13/16t 22:33; Admin Dose 36 UNIT; Start 06/12/16 at 21:00 CAROLA WHALEY MD Jun 14, 2016 18:54
[2016-06-14] MEDS: ATORVASTATIN 40 MG TAB PO SCH (21:12)
[2016-06-14] MEDS: INSULIN GLARGINE [LANtus] 3 ML PEN SC SCH (21:18)
[2016-06-15] VITALS (12 sets, daily range): BP systolic 117–144; BP diastolic 68–85; PULSE 65–101; RESP 18–22
[2016-06-15] MEDS: ACETAMINOPHEN 325 MG TAB PO PRN ×3 (01:26→20:26)
[2016-06-15] MEDS: ACCU-CHEK XX SCH (02:00)
[2016-06-15] MEDS: BUMETANIDE 1 MG TAB PO SCH ×2 (06:19→17:36)
[2016-06-15] MEDS: FERROUS GLUCONATE (EC) 325 MG TAB PO SCH ×2 (08:42→20:27)
[2016-06-15] MEDS: METOPROLOL 25 MG TAB PO SCH ×2 (08:42→22:00)
[2016-06-15] MEDS: POTASSIUM CHLORIDE 20 MEQ POWDER FOR ORAL SOLN PO SCH (08:42)
[2016-06-15] MEDS: FAMOTIDINE 20 MG TAB PO SCH ×2 (08:42→20:27)
[2016-06-15] MEDS: INSULIN ASPART [NOVOLOG] 3 ML PEN SC SCH ×7 (08:43→20:33)
[2016-06-15] MEDS: DILTIAZEM (CD) 240 MG CAP PO SCH (08:45)
[2016-06-15] MEDS: SPIRONOLACTONE 25 MG TAB PO SCH (08:45)
[2016-06-15] MEDS: CEFEPIME 1GM/50 ML (PMX) 50 ML IVPB SCH ×2 (08:45→20:35)
[2016-06-15] MEDS: SALMETEROL/FLUTICASONE 250/50 INHA INH SCH ×2 (08:46→20:27)
[2016-06-15] MEDS: ENOXAPARIN 40 MG/0.4 ML SYG SC SCH (08:51)
--- NOTE | 2016-06-15 10:29 | PN ---
Date/Time of Note Date/Time of Note DATE: 06/15/16 TIME: 10:27 Assessment/Plan VTE Prophylaxis VTE Prophylaxis Intervention: LMWH Lines/Catheters IV [facility] Saline Lock Assessment/Plan Chief Complaint/Hosp Course Assessment and plan 1. Acute on chronic respiratory failure multifactorial. Patient noted with COPD as well as CHF. Continue on bronchodilators. Continue on oxygen. Patient on diuretics. Follow-up results of chest x-ray. 2. Large subsided pleural effusion with underlying atelectasis/consolidation. Continue on diuretics. Continue with power electronics research engineer recommendations 3. Healthcare associated pneumonia. Continue antibiotics. 4. Pulmonary hypertension. Patient noted with PASP of 45 mmHg. continue on on supplemental oxygen. Diuretics as needed. 5. Type 2 diabetes. A1c 8.8. Is on insulin regimen. We'll adjust as needed 6. Essential hypertension. Continue on anti-hypertensives and adjust as needed 7. COPD. Patient oxygen dependent. Titrate down on O2 as tolerated. Continue on bronchodilators therapy Disposition and plan: Still noted with shortness of breath. Continue on diuretics. Follow-up on chest radiograph. Follow-up with power electronics research engineer recommendations Discussed plan of care with Dr. Adams Problems: Subjective 24 Hr Interval Summary Free Text/Dictation Reports were spreading today. States that she cannot lie down without feeling shortness of breath Exam/Review of Systems Vital Signs Vitals Vital Signs Date Time Temp Pulse Resp B/P Pulse Ox O2 Delivery O2 Flow Rate FiO2 06/15/16 08:07 65 06/15/16 07:39 Nasal Cannula 5.0 06/15/16 06:58 98.6 22 139/85 93 06/14/16 15:40 40 Intake and Output 06/14/16 06/14/16 06/15/16 15:00 23:00 07:00 Intake Total 850 ml 200 ml Output Total 900 ml 700 ml Balance -50 ml -500 ml Exam General: noted in mild distress secondary to dyspnea Eyes: pupils equal round, Anicteric sclera Neck: No JVD today Cardiac: Regular rate at this time. S1-S2 auscultated Pulmonary: Diminished lung bases still GI: Soft nontender Extremities: Edema noted bilateral lower extremities today Skin: Clean dry and intact Neurologic: Alert to person place and time and situation Results Result Diagram: 06/13/16 0635 06/13/16 0635 Results 24 hrs Laboratory Tests Test 06/14/16 21:10 06/15/16 01:23 06/15/16 08:19 Bedside Glucose 279 H 172 177 Medications Medications Current Medications Lorazepam (Ativan) 0.5 mg Q6H PRN IV ANXIETY Last administered on 06/14/16 21: 23; Admin Dose 0.5 MG; Start 06/11/16 at 06:00 Ondansetron HCl (Zofran Tab) 4 mg Q6H PRN PO NAUSEA AND/OR VOMITING; Start at 06:00 Metoclopramide HCl (Reglan) 10 mg Q6H PRN IV NAUSEA AND/OR VOMITING; Start at 06:00 Nitroglycerin (Nitroglycerin (Sl Tab) 0.4 Mg) 1 tab Q5M PRN SL CHEST PAIN; Start 06/11/16 at 06:00 Acetaminophen (Tylenol Tab) 650 mg Q6H PRN PO PAIN LEVEL 1-3 OR FEVER Last administered on 06/15/16 08:45; Admin Dose 650 MG; Start 06/11/16 at 06:00 Acetaminophen/ Hydrocodone Bitart ([place] (5/325)) 1 tab Q6H PRN PO PAIN LEVEL 4 -6; Start 06/11/16 at 06:00 Morphine Sulfate (morphine) 2 mg Q4H PRN IV PAIN LEVEL 7-10; Start 06/11/16 at 06:00 Famotidine (Pepcid) 20 mg Q12 PO Last administered on 06/15/16 08:42; Admin Dose 20 MG; Start 06/11/16 at 09:00 Atorvastatin Calcium (Lipitor) 40 mg HS PO Last administered on 06/14/16 21:12 ; Admin Dose 40 MG; Start 06/11/16 at 21:00 Digoxin (Digoxin) 0.25 mg DAILY@13 PO Last administered on 06/14/16 12:25; Admin Dose 0.25 MG; Start 06/11/16 at 13:00 Diltiazem HCl (Cardizem Cd) 240 mg DAILY PO Last administered on 06/15/16 08: 45; Admin Dose 240 MG; Start 06/11/16 at 09:00 Metoprolol Tartrate (Lopressor) 25 mg BID PO Last administered on 06/15/16 08: 42; Admin Dose 25 MG; Start 06/11/16 at 09:00 Potassium Chloride (Potassium Chloride Pwd/Soln) 20 meq DAILY PO Last administered on 06/15/16 08:42; Admin Dose 20 MEQ; Start 06/11/16 at 09:00 Salmeterol Xinafoate/ Fluticasone (Advair 250/50 Diskus) 1 inh BID INH Last administered on 06/15/16 08:46; Admin Dose 1 INH; Start 06/11/16 at 09:00 Spironolactone (Aldactone) 25 mg DAILY PO Last administered on 06/15/16 08:45 ; Admin Dose 25 MG; Start 06/11/16 at 09:00 Miscellaneous Information 1 ea NOTE XX ; Start 06/11/16 at 08:00 Glucose (Glutose) 15 gm Q15M PRN PO DECREASED GLUCOSE; Start 06/11/16 at 08:00 Glucose (Glutose) 22.5 gm Q15M PRN PO DECREASED GLUCOSE; Start 06/11/16 at 08: 00 Dextrose (D50w Syringe) 25 ml Q15M PRN IV DECREASED GLUCOSE; Start 06/11/16 at 08:00 Dextrose (D50w Syringe) 50 ml Q15M PRN IV DECREASED GLUCOSE; Start 06/11/16 at 08:00 Glucagon (Glucagen) 1 mg Q15M PRN IM DECREASED GLUCOSE; Start 06/11/16 at 08:00 Glucose (Glutose) 15 gm Q15M PRN BUCCAL DECREASED GLUCOSE; Start 06/11/16 at 08 :00 Diagnostic Test (Pha) 1 ea 1 ea 02 XX ; Start 06/12/16 at 02:00 Cefepime HCl 50 ml @ 100 mls/hr Q12 IVPB Last administered on 06/15/16 08:45 ; Admin Dose 100 MLS/HR; Start 06/11/16 at 21:00 Levofloxacin/ Dextrose (Levaquin 500mg/ D5W 100 ml (Pmx)) 100 ml @ 100 mls/hr Q24H IVPB Last administered on 06/14/16 17:21; Admin Dose 100 MLS/HR; Start at 16:30 Enoxaparin Sodium (Lovenox) 40 mg DAILY SC Last administered on 06/15/16 08:51 ; Admin Dose 40 MG; Start 06/12/16 at 11:00 Ferrous Gluconate (Fergon) 325 mg BID PO Last administered on 06/15/16 08:42; Admin Dose 325 MG; Start 06/12/16 at 21:00 Insulin Glargine (Lantus) 36 unit QHS SC Last administered on 06/14/16 21:18; Admin Dose 36 UNIT; Start 06/12/16 at 21:00 Guaifenesin (Mucinex) 600 mg BID PO ; Start 06/15/16 at 10:00 EDUARDO GOLDSTEIN Jun 15, 2016 10:29
--- NOTE | 2016-06-15 11:24 | RADRPT ---
PROCEDURE: XR Chest 1 view. CLINICAL INDICATION: Shortness of breath, pneumonia TECHNIQUE: AP views of the chest were obtained. COMPARISON: June 11, 2016 FINDINGS: The heart is large. Calcified atherosclerosis is noted in the aorta. Left mid and lower lung infilt rates, combined with pleural effusion are stable. Right basilar infiltrates and small right pleural effusion have mildly increased. Osseous structures are intact. IMPRESSION: Cardiomegaly with calcified atherosclerosis in the aorta. Stable left mid and lower lung infiltrates, combined with pleural effusion. Mild interval increase in right basilar infiltrates, combined with small pleural effusion. RPTAT: AA .Alberto An MD, Date Time Electronically viewed and signed by .Alberto An MD, on 06/15/2016 11:24 .P/
--- NOTE | 2016-06-15 11:26 | CONS ---
Date/Time of Note Date/Time of Note DATE: 06/15/16 TIME: 11:24 Assessment/Plan Assessment/Plan Additional Assessment/Plan Assessment and recommendations; 1. Patient admitted for left lower lobe pneumonia. 2. Mild CHF. 3. Remote history of right breast cancer. 4. History of hypertension and diabetes. Continue current treatment. Obtain follow-up chest x-ray tomorrow morning. Consultation Date/Type/Reason Admit Date/Time Jun 11, 2016 at 14:17 Initial Consult Date 06/12/16 Type of Consultation: Pulmonary 24 HR Interval Summary Free Text/Dictation Patient condition is stable. Sitting in a chair by bedside. She complains of mild shortness of breath. But denies any coughing wheezing fever or chills. Denies any chest pain. General exam; elderly woman, currently in no distress. Appears quite overweight. Exam/Review of Systems Vital Signs Vitals Vital Signs Date Time Temp Pulse Resp B/P Pulse Ox O2 Delivery O2 Flow Rate FiO2 06/15/16 08:07 65 06/15/16 07:39 Nasal Cannula 5.0 06/15/16 06:58 98.6 22 139/85 93 06/14/16 15:40 40 Intake and Output 06/14/16 06/14/16 06/15/16 15:00 23:00 07:00 Intake Total 850 ml 200 ml Output Total 900 ml 700 ml Balance -50 ml -500 ml Exam HEENT examination; supple neck, no JVD. No lymphadenopathy. Midline trachea. No thyromegaly. Patient has a few missing teeth. No neck masses. No lymphadenopathy. Chest examination; diminished but clear breath sounds bilaterally. S1-S2 audible, no murmurs. Regular rhythm. Abdomen examination; soft, no organomegaly. Bowel sounds audible. Nontender. Protuberant. Extremity examination; no peripheral edema. Pulses 1+ bilaterally. No clubbing. PATIENT RELATIONS REPRESENTATIVE examination; no focal deficit. Results Result Diagram: 06/13/16 0635 06/13/16 0635 Results 24 hrs Laboratory Tests Test 06/14/16 21:10 06/15/16 01:23 06/15/16 08:19 Bedside Glucose 279 H 172 177 Medications Medications Current Medications Lorazepam (Ativan) 0.5 mg Q6H PRN IV ANXIETY Last administered on 06/14/16t 21: 23; Admin Dose 0.5 MG; Start 06/11/16 at 06:00 Ondansetron HCl (Zofran Tab) 4 mg Q6H PRN PO NAUSEA AND/OR VOMITING; Start at 06:00 Metoclopramide HCl (Reglan) 10 mg Q6H PRN IV NAUSEA AND/OR VOMITING; Start at 06:00 Nitroglycerin (Nitroglycerin (Sl Tab) 0.4 Mg) 1 tab Q5M PRN SL CHEST PAIN; Start 06/11/16 at 06:00 Acetaminophen (Tylenol Tab) 650 mg Q6H PRN PO PAIN LEVEL 1-3 OR FEVER Last administered on 06/15/16 08:45; Admin Dose 650 MG; Start 06/11/16 at 06:00 Acetaminophen/ Hydrocodone Bitart ([place] (5/325)) 1 tab Q6H PRN PO PAIN LEVEL 4 -6; Start 06/11/16 at 06:00 Morphine Sulfate (morphine) 2 mg Q4H PRN IV PAIN LEVEL 7-10; Start 06/11/16 at 06:00 Famotidine (Pepcid) 20 mg Q12 PO Last administered on 06/15/16 08:42; Admin Dose 20 MG; Start 06/11/16 at 09:00 Atorvastatin Calcium (Lipitor) 40 mg HS PO Last administered on 06/14/16 21:12 ; Admin Dose 40 MG; Start 06/11/16 at 21:00 Digoxin (Digoxin) 0.25 mg DAILY@13 PO Last administered on 06/14/16 12:25; Admin Dose 0.25 MG; Start 06/11/16 at 13:00 Diltiazem HCl (Cardizem Cd) 240 mg DAILY PO Last administered on 06/15/16 08: 45; Admin Dose 240 MG; Start 06/11/16 at 09:00 Metoprolol Tartrate (Lopressor) 25 mg BID PO Last administered on 06/15/16 08: 42; Admin Dose 25 MG; Start 06/11/16 at 09:00 Potassium Chloride (Potassium Chloride Pwd/Soln) 20 meq DAILY PO Last administered on 06/15/16 08:42; Admin Dose 20 MEQ; Start 06/11/16 at 09:00 Salmeterol Xinafoate/ Fluticasone (Advair 250/50 Diskus) 1 inh BID INH Last administered on 06/15/16 08:46; Admin Dose 1 INH; Start 06/11/16 at 09:00 Spironolactone (Aldactone) 25 mg DAILY PO Last administered on 06/15/16 08:45 ; Admin Dose 25 MG; Start 06/11/16 at 09:00 Miscellaneous Information 1 ea NOTE XX ; Start 06/11/16 at 08:00 Glucose (Glutose) 15 gm Q15M PRN PO DECREASED GLUCOSE; Start 06/11/16 at 08:00 Glucose (Glutose) 22.5 gm Q15M PRN PO DECREASED GLUCOSE; Start 06/11/16 at 08: 00 Dextrose (D50w Syringe) 25 ml Q15M PRN IV DECREASED GLUCOSE; Start 06/11/16 at 08:00 Dextrose (D50w Syringe) 50 ml Q15M PRN IV DECREASED GLUCOSE; Start 06/11/16 at 08:00 Glucagon (Glucagen) 1 mg Q15M PRN IM DECREASED GLUCOSE; Start 06/11/16 at 08:00 Glucose (Glutose) 15 gm Q15M PRN BUCCAL DECREASED GLUCOSE; Start 06/11/16 at 08 :00 Diagnostic Test (Pha) 1 ea 1 ea 02 XX ; Start 06/12/16 at 02:00 Cefepime HCl 50 ml @ 100 mls/hr Q12 IVPB Last administered on 06/15/16 08:45 ; Admin Dose 100 MLS/HR; Start 06/11/16 at 21:00 Levofloxacin/ Dextrose (Levaquin 500mg/ D5W 100 ml (Pmx)) 100 ml @ 100 mls/hr Q24H IVPB Last administered on 06/14/16 17:21; Admin Dose 100 MLS/HR; Start at 16:30 Enoxaparin Sodium (Lovenox) 40 mg DAILY SC Last administered on 06/15/16 08:51 ; Admin Dose 40 MG; Start 06/12/16 at 11:00 Ferrous Gluconate (Fergon) 325 mg BID PO Last administered on 06/15/16 08:42; Admin Dose 325 MG; Start 06/12/16 at 21:00 Insulin Glargine (Lantus) 36 unit QHS SC Last administered on 06/14/16 21:18; Admin Dose 36 UNIT; Start 06/12/16 at 21:00 Guaifenesin (Mucinex) 600 mg BID PO ; Start 06/15/16 at 10:00 MAGALYS CHAPIN Jun 15, 2016 11:26
[2016-06-15] MEDS: GUAIFENESIN LA 600 MG TABSR PO SCH ×2 (11:29→20:27)
[2016-06-15] MEDS: DIGOXIN 0.25 MG TAB PO SCH (13:34)
[2016-06-15] MEDS: IPRATROPIUM (NEB) 0.5 MG/2.5 ML AMP HHN PRN (14:09)
[2016-06-15] MEDS: LEVALBUTEROL (NEB) 1.25 MG/0.5 ML AMP HHN PRN (14:09)
[2016-06-15] MEDS: LEVOFLOXACIN 500MG/D5W (PMX) 100 ML IVPB SCH (16:10)
--- NOTE | 2016-06-15 17:26 | CONS ---
Date/Time of Note Date/Time of Note DATE: 06/15/16 TIME: 17:25 Assessment/Plan Assessment/Plan Chief Complaint/Hosp Course Acute on chronic hypoxic respiratory failure - likely multifactorial including CHF, pleural effusion and possible PNA Acute on chronic diastolic heart failure - echocardiogram 11/14/2015 showed LVEF 55% Chronic atrial fibrillation - HR overall controlled currently. On Eliquis at home Pneumonia/pleural effusion Chronic obstructive pulmonary disease - on 4 liters home oxygen at baseline Hypertension Dyslipidemia Diabetes mellitus -continue Bumex 1mg PO BID -consider thoracentesis - ok to hold Eliquis for thoracentesis and restart when safe -continue metoprolol 25mg BID -continue digoxin 250mcg (levels were low so unclear compliance) -diltiazem 240mg daily -spironolactone 25mg daily -continue atorvastatin 40mg daily Problems: Consultation Date/Type/Reason Admit Date/Time Jun 11, 2016 at 14:17 Initial Consult Date 06/12/16 Type of Consultation: Cardiology 24 HR Interval Summary Free Text/Dictation Shortness of breath improving. Detailed Summary Additional Comments 14 point review of systems without changes. Exam/Review of Systems Vital Signs Vitals Vital Signs Date Time Temp Pulse Resp B/P Pulse Ox O2 Delivery O2 Flow Rate FiO2 06/15/16 16:15 87 06/15/16 15:06 98.1 22 144/70 92 06/15/16 14:09 Nasal Cannula 4.0 06/14/16 15:40 40 Intake and Output 06/14/16 06/14/16 06/15/16 15:00 23:00 07:00 Intake Total 850 ml 200 ml Output Total 900 ml 700 ml Balance -50 ml -500 ml Exam Constitutional: alert, oriented Psych: no complaints Head: atraumatic, normocephalic Neck: jvd (10cm) Respiratory: crackles/rales, diminished breath sounds (on left), No clear to auscultation Cardiovascular: edema, No regular rate and rhythm (IRIR), No systolic murmur Gastrointestinal: non-tender, soft 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: nl mental status, nl speech Skin: No rash or lesions Results Result Diagram: 06/13/16 0635 06/13/16 0635 Results 24 hrs Laboratory Tests Test 06/14/16 21:10 06/15/16 01:23 06/15/16 08:19 06/15/16 11:26 Bedside Glucose 279 H 172 177 204 Medications Medications Current Medications Lorazepam (Ativan) 0.5 mg Q6H PRN IV ANXIETY Last administered on 06/14/16 21: 23; Admin Dose 0.5 MG; Start 06/11/16 at 06:00 Ondansetron HCl (Zofran Tab) 4 mg Q6H PRN PO NAUSEA AND/OR VOMITING; Start at 06:00 Metoclopramide HCl (Reglan) 10 mg Q6H PRN IV NAUSEA AND/OR VOMITING; Start at 06:00 Nitroglycerin (Nitroglycerin (Sl Tab) 0.4 Mg) 1 tab Q5M PRN SL CHEST PAIN; Start 06/11/16 at 06:00 Acetaminophen (Tylenol Tab) 650 mg Q6H PRN PO PAIN LEVEL 1-3 OR FEVER Last administered on 06/15/16 08:45; Admin Dose 650 MG; Start 06/11/16 at 06:00 Acetaminophen/ Hydrocodone Bitart ([place] (5/325)) 1 tab Q6H PRN PO PAIN LEVEL 4 -6; Start 06/11/16 at 06:00 Morphine Sulfate (morphine) 2 mg Q4H PRN IV PAIN LEVEL 7-10; Start 06/11/16 at 06:00 Famotidine (Pepcid) 20 mg Q12 PO Last administered on 06/15/16 08:42; Admin Dose 20 MG; Start 06/11/16 at 09:00 Atorvastatin Calcium (Lipitor) 40 mg HS PO Last administered on 06/14/16 21:12 ; Admin Dose 40 MG; Start 06/11/16 at 21:00 Digoxin (Digoxin) 0.25 mg DAILY@13 PO Last administered on 06/15/16 13:34; Admin Dose 0.25 MG; Start 06/11/16 at 13:00 Diltiazem HCl (Cardizem Cd) 240 mg DAILY PO Last administered on 06/15/16 08: 45; Admin Dose 240 MG; Start 06/11/16 at 09:00 Metoprolol Tartrate (Lopressor) 25 mg BID PO Last administered on 06/15/16 08: 42; Admin Dose 25 MG; Start 06/11/16 at 09:00 Potassium Chloride (Potassium Chloride Pwd/Soln) 20 meq DAILY PO Last administered on 06/15/16 08:42; Admin Dose 20 MEQ; Start 06/11/16 at 09:00 Salmeterol Xinafoate/ Fluticasone (Advair 250/50 Diskus) 1 inh BID INH Last administered on 06/15/16 08:46; Admin Dose 1 INH; Start 06/11/16 at 09:00 Spironolactone (Aldactone) 25 mg DAILY PO Last administered on 06/15/16 08:45 ; Admin Dose 25 MG; Start 06/11/16 at 09:00 Miscellaneous Information 1 ea NOTE XX ; Start 06/11/16 at 08:00 Glucose (Glutose) 15 gm Q15M PRN PO DECREASED GLUCOSE; Start 06/11/16 at 08:00 Glucose (Glutose) 22.5 gm Q15M PRN PO DECREASED GLUCOSE; Start 06/11/16 at 08: 00 Dextrose (D50w Syringe) 25 ml Q15M PRN IV DECREASED GLUCOSE; Start 06/11/16 at 08:00 Dextrose (D50w Syringe) 50 ml Q15M PRN IV DECREASED GLUCOSE; Start 06/11/16 at 08:00 Glucagon (Glucagen) 1 mg Q15M PRN IM DECREASED GLUCOSE; Start 06/11/16 at 08:00 Glucose (Glutose) 15 gm Q15M PRN BUCCAL DECREASED GLUCOSE; Start 06/11/16 at 08 :00 Diagnostic Test (Pha) 1 ea 1 ea 02 XX ; Start 06/12/16 at 02:00 Cefepime HCl 50 ml @ 100 mls/hr Q12 IVPB Last administered on 06/15/16 08:45 ; Admin Dose 100 MLS/HR; Start 06/11/16 at 21:00 Levofloxacin/ Dextrose (Levaquin 500mg/ D5W 100 ml (Pmx)) 100 ml @ 100 mls/hr Q24H IVPB Last administered on 06/15/16 16:10; Admin Dose 100 MLS/HR; Start at 16:30 Enoxaparin Sodium (Lovenox) 40 mg DAILY SC Last administered on 06/15/16 08:51 ; Admin Dose 40 MG; Start 06/12/16 at 11:00 Ferrous Gluconate (Fergon) 325 mg BID PO Last administered on 06/15/16 08:42; Admin Dose 325 MG; Start 06/12/16 at 21:00 Insulin Glargine (Lantus) 36 unit QHS SC Last administered on 06/14/16 21:18; Admin Dose 36 UNIT; Start 06/12/16 at 21:00 Guaifenesin (Mucinex) 600 mg BID PO Last administered on 06/15/16 11:29; Admin Dose 600 MG; Start 06/15/16 at 10:00 CAROLA WHALEY MD Jun 15, 2016 17:26
[2016-06-15] MEDS: ATORVASTATIN 40 MG TAB PO SCH (20:26)
[2016-06-15] MEDS: INSULIN GLARGINE [LANtus] 3 ML PEN SC SCH (20:34)
[2016-06-15] MEDS ORDERED: ZOLPIDEM 5 MG TAB PO PRN (22:30)
[2016-06-16] VITALS (13 sets, daily range): BP systolic 116–133; BP diastolic 55–91; PULSE 82–115; RESP 17–20
[2016-06-16] MEDS: ACCU-CHEK XX SCH (02:00)
[2016-06-16] MEDS: BUMETANIDE 1 MG TAB PO SCH ×2 (05:44→17:50)
[2016-06-16 07:43] LABS: ADD SCAN DIFF NO
[2016-06-16 07:51] LABS: BASOPHILS % 0.2 % (0.0-2.0); EOSINOPHILS # 0.1 10^3/ul (0.0-0.5); EOSINOPHILS % 0.7 % (0.0-7.0); HEMATOCRIT 36.8 % (37.0-47.0); HEMOGLOBIN 11.1 g/dl (12.0-16.0); LYMPHOCYTES # 1.4 10^3/ul (0.8-2.9); LYMPHOCYTES % 11.1 % (15.0-51.0); MEAN CORPUSCULAR HEMOGLOBIN 27.5 pg (29.0-33.0); MEAN CORPUSCULAR HGB CONC 30.2 g/dl (32.0-37.0); MEAN CORPUSCULAR VOLUME 91.3 fl (82.0-101.0); MEAN PLATELET VOLUME 9.9 fl (7.4-10.4); MONOCYTE # 1.1 10^3/ul (0.3-0.9); MONOCYTES % 8.6 % (0.0-11.0); NEUTROPHIL # 9.6 10^3/ul (1.6-7.5); NEUTROPHILS % 78.8 % (39.0-77.0); PLATELET COUNT 350 10^3/UL (140-415); RED BLOOD COUNT 4.03 10^6/ul (4.20-5.40); RED CELL DISTRIBUTION WIDTH 18.3 % (11.5-14.5); WHITE BLOOD COUNT 12.2 10^3/ul (4.8-10.8)
[2016-06-16 08:01] LABS: CREATININE 0.81 mg/dl (0.44-1.00); POTASSIUM 4.2 mmol/L (3.5-5.1)
[2016-06-16 08:03] LABS: CALCIUM 8.3 mg/dl (8.4-10.2)
[2016-06-16] MEDS: CEFEPIME 1GM/50 ML (PMX) 50 ML IVPB SCH ×2 (08:42→20:26)
[2016-06-16] MEDS: GUAIFENESIN LA 600 MG TABSR PO SCH ×2 (08:43→20:26)
[2016-06-16] MEDS: DILTIAZEM (CD) 240 MG CAP PO SCH (08:43)
[2016-06-16] MEDS: METOPROLOL 25 MG TAB PO SCH ×2 (08:43→20:27)
[2016-06-16] MEDS: SPIRONOLACTONE 25 MG TAB PO SCH (08:43)
[2016-06-16] MEDS: POTASSIUM CHLORIDE 20 MEQ POWDER FOR ORAL SOLN PO SCH (08:43)
[2016-06-16] MEDS: FAMOTIDINE 20 MG TAB PO SCH ×2 (08:44→20:26)
[2016-06-16] MEDS: FERROUS GLUCONATE (EC) 325 MG TAB PO SCH ×2 (08:44→20:26)
[2016-06-16] MEDS: ACETAMINOPHEN 325 MG TAB PO PRN (08:44)
[2016-06-16] MEDS: SALMETEROL/FLUTICASONE 250/50 INHA INH SCH ×2 (08:44→20:26)
[2016-06-16] MEDS: ENOXAPARIN 40 MG/0.4 ML SYG SC SCH (08:48)
[2016-06-16] MEDS: INSULIN ASPART [NOVOLOG] 3 ML PEN SC SCH ×7 (08:48→20:31)
--- NOTE | 2016-06-16 11:45 | PN ---
Date/Time of Note Date/Time of Note DATE: 06/16/16 TIME: 11:43 Assessment/Plan VTE Prophylaxis VTE Prophylaxis Intervention: LMWH Lines/Catheters IV [facility] Assessment/Plan Chief Complaint/Hosp Course Assessment and plan 1. Acute on chronic respiratory failure multifactorial. Patient noted with COPD as well as CHF. Continue on bronchodilators. Continue on oxygen. Patient on diuretics.noted with large pleural effusion left lung field. plan for thoracentesis 2. Large subsided pleural effusion with underlying atelectasis/consolidation. cont on diuretics. thoracentesis ordered 3. Healthcare associated pneumonia. Continue antibiotics. 4. Pulmonary hypertension. Patient noted with PASP of 45 mmHg. continue on on supplemental oxygen. titrate down as tolerated. 5. Type 2 diabetes. A1c 8.8. Is on insulin regimen. We'll adjust as needed 6. Essential hypertension. Continue on anti-hypertensives and adjust as needed 7. COPD. Patient oxygen dependent. Titrate down on O2 as tolerated. Continue on bronchodilators therapy Disposition and plan: noted with orthopnea. plan for thoracentesis today Discussed plan of care with Dr. Adams Problems: Subjective 24 Hr Interval Summary Free Text/Dictation still reports having some shortness of breath Exam/Review of Systems Vital Signs Vitals Vital Signs Date Time Temp Pulse Resp B/P Pulse Ox O2 Delivery O2 Flow Rate FiO2 06/16/16 08:10 110 06/16/16 07:38 Nasal Cannula 5.0 06/16/16 07:30 97.6 20 126/90 90 06/14/16 15:40 40 Intake and Output 06/15/16 06/15/16 06/16/16 15:00 23:00 07:00 Intake Total 1000 ml 300 ml Output Total 950 ml 800 ml Balance 50 ml -500 ml Exam General: less distress today. still states she has some dyspnea. Eyes: pupils equal round, Anicteric sclera Neck: still no jvd Cardiac: Regular rate at this time. S1-S2 auscultated Pulmonary: diminished lung bases, more on left side GI: Soft nontender Extremities: still with edema ble Skin: Clean dry and intact Neurologic: Alert to person place and time and situation Results Result Diagram: 06/16/16 0720 06/16/16 0730 Results 24 hrs Laboratory Tests Test 06/15/16 17:32 06/15/16 19:54 06/16/16 02:16 06/16/16 07:20 Bedside Glucose 332 H 264 H 198 White Blood Count 12.2 #H Red Blood Count 4.03 L Hemoglobin 11.1 L Hematocrit 36.8 L Mean Corpuscular Volume 91.3 Mean Corpuscular Hemoglobin 27.5 L Mean Corpuscular Hemoglobin Concent 30.2 L Red Cell Distribution Width 18.3 H Platelet Count 350 # Mean Platelet Volume 9.9 Neutrophils % 78.8 H Lymphocytes % 11.1 L Monocytes % 8.6 Eosinophils % 0.7 Basophils % 0.2 Nucleated Red Blood Cells % 0.0 Neutrophils # 9.6 H Lymphocytes # 1.4 Monocytes # 1.1 H Eosinophils # 0.1 Basophils # 0.0 Nucleated Red Blood Cells # 0.0 Test 06/16/16 07:30 06/16/16 08:08 Sodium Level 136 Potassium Level 4.2 Chloride Level 85 L Carbon Dioxide Level 43 *H Anion Gap 12 Blood Urea Nitrogen 17 Creatinine 0.81 Glucose Level 197 Calcium Level 8.3 L Bedside Glucose 179 Medications Medications Current Medications Lorazepam (Ativan) 0.5 mg Q6H PRN IV ANXIETY Last administered on 06/14/16 21: 23; Admin Dose 0.5 MG; Start 06/11/16 at 06:00 Ondansetron HCl (Zofran Tab) 4 mg Q6H PRN PO NAUSEA AND/OR VOMITING; Start at 06:00 Metoclopramide HCl (Reglan) 10 mg Q6H PRN IV NAUSEA AND/OR VOMITING; Start at 06:00 Nitroglycerin (Nitroglycerin (Sl Tab) 0.4 Mg) 1 tab Q5M PRN SL CHEST PAIN; Start 06/11/16 at 06:00 Acetaminophen (Tylenol Tab) 650 mg Q6H PRN PO PAIN LEVEL 1-3 OR FEVER Last administered on 06/16/16 08:44; Admin Dose 650 MG; Start 06/11/16 at 06:00 Acetaminophen/ Hydrocodone Bitart ([place] (5/325)) 1 tab Q6H PRN PO PAIN LEVEL 4 -6; Start 06/11/16 at 06:00 Morphine Sulfate (morphine) 2 mg Q4H PRN IV PAIN LEVEL 7-10; Start 06/11/16 at 06:00 Famotidine (Pepcid) 20 mg Q12 PO Last administered on 06/16/16 08:44; Admin Dose 20 MG; Start 06/11/16 at 09:00 Atorvastatin Calcium (Lipitor) 40 mg HS PO Last administered on 06/15/16 20:26 ; Admin Dose 40 MG; Start 06/11/16 at 21:00 Digoxin (Digoxin) 0.25 mg DAILY@13 PO Last administered on 06/15/16 13:34; Admin Dose 0.25 MG; Start 06/11/16 at 13:00 Diltiazem HCl (Cardizem Cd) 240 mg DAILY PO Last administered on 06/16/16 08: 43; Admin Dose 240 MG; Start 06/11/16 at 09:00 Metoprolol Tartrate (Lopressor) 25 mg BID PO Last administered on 06/16/16 08: 43; Admin Dose 25 MG; Start 06/11/16 at 09:00 Potassium Chloride (Potassium Chloride Pwd/Soln) 20 meq DAILY PO Last administered on 06/16/16 08:43; Admin Dose 20 MEQ; Start 06/11/16 at 09:00 Salmeterol Xinafoate/ Fluticasone (Advair 250/50 Diskus) 1 inh BID INH Last administered on 06/16/16 08:44; Admin Dose 1 INH; Start 06/11/16 at 09:00 Spironolactone (Aldactone) 25 mg DAILY PO Last administered on 06/16/16 08:43 ; Admin Dose 25 MG; Start 06/11/16 at 09:00 Miscellaneous Information 1 ea NOTE XX ; Start 06/11/16 at 08:00 Glucose (Glutose) 15 gm Q15M PRN PO DECREASED GLUCOSE; Start 06/11/16 at 08:00 Glucose (Glutose) 22.5 gm Q15M PRN PO DECREASED GLUCOSE; Start 06/11/16 at 08: 00 Dextrose (D50w Syringe) 25 ml Q15M PRN IV DECREASED GLUCOSE; Start 06/11/16 at 08:00 Dextrose (D50w Syringe) 50 ml Q15M PRN IV DECREASED GLUCOSE; Start 06/11/16 at 08:00 Glucagon (Glucagen) 1 mg Q15M PRN IM DECREASED GLUCOSE; Start 06/11/16 at 08:00 Glucose (Glutose) 15 gm Q15M PRN BUCCAL DECREASED GLUCOSE; Start 06/11/16 at 08 :00 Diagnostic Test (Pha) 1 ea 1 ea 02 XX Last administered on 06/16/16 02:00; Admin Dose 1 EA; Start 06/12/16 at 02:00 Cefepime HCl 50 ml @ 100 mls/hr Q12 IVPB Last administered on 06/16/16 08:42 ; Admin Dose 100 MLS/HR; Start 06/11/16 at 21:00 Levofloxacin/ Dextrose (Levaquin 500mg/ D5W 100 ml (Pmx)) 100 ml @ 100 mls/hr Q24H IVPB Last administered on 06/15/16 16:10; Admin Dose 100 MLS/HR; Start at 16:30 Enoxaparin Sodium (Lovenox) 40 mg DAILY SC Last administered on 06/16/16 08:48 ; Admin Dose 40 MG; Start 06/12/16 at 11:00 Ferrous Gluconate (Fergon) 325 mg BID PO Last administered on 06/16/16 08:44; Admin Dose 325 MG; Start 06/12/16 at 21:00 Insulin Glargine (Lantus) 36 unit QHS SC Last administered on 06/15/16 20:34; Admin Dose 36 UNIT; Start 06/12/16 at 21:00 Guaifenesin (Mucinex) 600 mg BID PO Last administered on 06/16/16 08:43; Admin Dose 600 MG; Start 06/15/16 at 10:00 Zolpidem Tartrate (Ambien) 10 mg HS PRN PO INSOMNIA; Start 06/15/16 at 22:30 EDUARDO GOLDSTEIN Jun 16, 2016 11:45
[2016-06-16] MEDS: DIGOXIN 0.25 MG TAB PO SCH (12:15)
--- NOTE | 2016-06-16 13:55 | CONS ---
Date/Time of Note Date/Time of Note DATE: 06/16/16 TIME: 13:53 Assessment/Plan Assessment/Plan Additional Assessment/Plan Assessment recommendations; 1. Patient admitted for left lower lobe pneumonia with clinical improvement. Awaiting chest x-ray. 2. History of cardiac arrhythmia. 3. History of right breast cancer. 4. Diabetes. 5. Obesity. 6. Improving leukocytosis. Continue current treatment. Obtain follow-up chest x-ray. Consultation Date/Type/Reason Admit Date/Time Jun 11, 2016 at 14:17 Initial Consult Date 06/12/16 Type of Consultation: Pulmonary 24 HR Interval Summary Free Text/Dictation Patient condition stable. Denies any chest pain, fever chills. Complains of very minimal shortness of breath. General exam; elderly woman, currently in no distress. Sitting in a chair by bedside. Awake and alert. Exam/Review of Systems Vital Signs Vitals Vital Signs Date Time Temp Pulse Resp B/P Pulse Ox O2 Delivery O2 Flow Rate FiO2 06/16/16 12:29 85 06/16/16 11:43 97.9 20 116/66 96 06/16/16 07:38 Nasal Cannula 5.0 06/14/16 15:40 40 Intake and Output 06/15/16 06/15/16 06/16/16 15:00 23:00 07:00 Intake Total 1000 ml 300 ml Output Total 950 ml 800 ml Balance 50 ml -500 ml Exam HEENT examination; supple neck, no JVD. No lymphadenopathy. Midline trachea. Patient has a multiple missing teeth. Pupils are midsize reactive to light. Chest examination; diminished breath sounds left lower lobe. Upper lobes are clear and right lower lobe is clear to auscultation. S1-S2 audible, no murmurs. Regular rhythm. Abdomen examination; soft, nontender. Protuberant. Bowel sounds audible. Extremity examination; no peripheral edema. Pulses 1+ bilaterally. FREELANCE WRITER examination; no focal deficit. Results Result Diagram: 06/16/16 0720 06/16/16 0730 Results 24 hrs Laboratory Tests Test 06/15/16 17:32 06/15/16 19:54 06/16/16 02:16 06/16/16 07:20 Bedside Glucose 332 H 264 H 198 White Blood Count 12.2 #H Red Blood Count 4.03 L Hemoglobin 11.1 L Hematocrit 36.8 L Mean Corpuscular Volume 91.3 Mean Corpuscular Hemoglobin 27.5 L Mean Corpuscular Hemoglobin Concent 30.2 L Red Cell Distribution Width 18.3 H Platelet Count 350 # Mean Platelet Volume 9.9 Neutrophils % 78.8 H Lymphocytes % 11.1 L Monocytes % 8.6 Eosinophils % 0.7 Basophils % 0.2 Nucleated Red Blood Cells % 0.0 Neutrophils # 9.6 H Lymphocytes # 1.4 Monocytes # 1.1 H Eosinophils # 0.1 Basophils # 0.0 Nucleated Red Blood Cells # 0.0 Test 06/16/16 07:30 06/16/16 08:08 06/16/16 12:13 Sodium Level 136 Potassium Level 4.2 Chloride Level 85 L Carbon Dioxide Level 43 *H Anion Gap 12 Blood Urea Nitrogen 17 Creatinine 0.81 Glucose Level 197 Calcium Level 8.3 L Bedside Glucose 179 246 H Medications Medications Current Medications Lorazepam (Ativan) 0.5 mg Q6H PRN IV ANXIETY Last administered on 06/14/16 21: 23; Admin Dose 0.5 MG; Start 06/11/16 at 06:00 Ondansetron HCl (Zofran Tab) 4 mg Q6H PRN PO NAUSEA AND/OR VOMITING; Start at 06:00 Metoclopramide HCl (Reglan) 10 mg Q6H PRN IV NAUSEA AND/OR VOMITING; Start at 06:00 Nitroglycerin (Nitroglycerin (Sl Tab) 0.4 Mg) 1 tab Q5M PRN SL CHEST PAIN; Start 06/11/16 at 06:00 Acetaminophen (Tylenol Tab) 650 mg Q6H PRN PO PAIN LEVEL 1-3 OR FEVER Last administered on 06/16/16 08:44; Admin Dose 650 MG; Start 06/11/16 at 06:00 Acetaminophen/ Hydrocodone Bitart ([place] (5/325)) 1 tab Q6H PRN PO PAIN LEVEL 4 -6; Start 06/11/16 at 06:00 Morphine Sulfate (morphine) 2 mg Q4H PRN IV PAIN LEVEL 7-10; Start 06/11/16 at 06:00 Famotidine (Pepcid) 20 mg Q12 PO Last administered on 06/16/16 08:44; Admin Dose 20 MG; Start 06/11/16 at 09:00 Atorvastatin Calcium (Lipitor) 40 mg HS PO Last administered on 06/15/16 20:26 ; Admin Dose 40 MG; Start 06/11/16 at 21:00 Digoxin (Digoxin) 0.25 mg DAILY@13 PO Last administered on 06/16/16 12:15; Admin Dose 0.25 MG; Start 06/11/16 at 13:00 Diltiazem HCl (Cardizem Cd) 240 mg DAILY PO Last administered on 06/16/16 08: 43; Admin Dose 240 MG; Start 06/11/16 at 09:00 Metoprolol Tartrate (Lopressor) 25 mg BID PO Last administered on 06/16/16 08: 43; Admin Dose 25 MG; Start 06/11/16 at 09:00 Potassium Chloride (Potassium Chloride Pwd/Soln) 20 meq DAILY PO Last administered on 06/16/16 08:43; Admin Dose 20 MEQ; Start 06/11/16 at 09:00 Salmeterol Xinafoate/ Fluticasone (Advair 250/50 Diskus) 1 inh BID INH Last administered on 06/16/16 08:44; Admin Dose 1 INH; Start 06/11/16 at 09:00 Spironolactone (Aldactone) 25 mg DAILY PO Last administered on 06/16/16 08:43 ; Admin Dose 25 MG; Start 06/11/16 at 09:00 Miscellaneous Information 1 ea NOTE XX ; Start 06/11/16 at 08:00 Glucose (Glutose) 15 gm Q15M PRN PO DECREASED GLUCOSE; Start 06/11/16 at 08:00 Glucose (Glutose) 22.5 gm Q15M PRN PO DECREASED GLUCOSE; Start 06/11/16 at 08: 00 Dextrose (D50w Syringe) 25 ml Q15M PRN IV DECREASED GLUCOSE; Start 06/11/16 at 08:00 Dextrose (D50w Syringe) 50 ml Q15M PRN IV DECREASED GLUCOSE; Start 06/11/16 at 08:00 Glucagon (Glucagen) 1 mg Q15M PRN IM DECREASED GLUCOSE; Start 06/11/16 at 08:00 Glucose (Glutose) 15 gm Q15M PRN BUCCAL DECREASED GLUCOSE; Start 06/11/16 at 08 :00 Diagnostic Test (Pha) 1 ea 1 ea 02 XX Last administered on 06/16/16 02:00; Admin Dose 1 EA; Start 06/12/16 at 02:00 Cefepime HCl 50 ml @ 100 mls/hr Q12 IVPB Last administered on 06/16/16 08:42 ; Admin Dose 100 MLS/HR; Start 06/11/16 at 21:00 Levofloxacin/ Dextrose (Levaquin 500mg/ D5W 100 ml (Pmx)) 100 ml @ 100 mls/hr Q24H IVPB Last administered on 06/15/16 16:10; Admin Dose 100 MLS/HR; Start at 16:30 Enoxaparin Sodium (Lovenox) 40 mg DAILY SC Last administered on 06/16/16 08:48 ; Admin Dose 40 MG; Start 06/12/16 at 11:00 Ferrous Gluconate (Fergon) 325 mg BID PO Last administered on 06/16/16 08:44; Admin Dose 325 MG; Start 06/12/16 at 21:00 Insulin Glargine (Lantus) 36 unit QHS SC Last administered on 06/15/16 20:34; Admin Dose 36 UNIT; Start 06/12/16 at 21:00 Guaifenesin (Mucinex) 600 mg BID PO Last administered on 06/16/16 08:43; Admin Dose 600 MG; Start 06/15/16 at 10:00 Zolpidem Tartrate (Ambien) 10 mg HS PRN PO INSOMNIA; Start 06/15/16 at 22:30 MAGALYS CHAPIN Jun 16, 2016 13:55
[2016-06-16] MEDS ORDERED: LIDOCAINE 1% (MPF) 5 ML VIAL ONE (15:29)
--- NOTE | 2016-06-16 15:56 | CONS ---
Date/Time of Note Date/Time of Note DATE: 06/16/16 TIME: 15:53 Assessment/Plan Assessment/Plan Chief Complaint/Hosp Course Acute on chronic hypoxic respiratory failure - likely multifactorial including CHF, pleural effusion and pneumonia Acute on chronic diastolic heart failure - echocardiogram 11/14/2015 showed LVEF 55% Chronic atrial fibrillation - HR overall controlled currently. On Eliquis at home Pneumonia/pleural effusion - status post thoracentesis 06/16/2016 Chronic obstructive pulmonary disease - on 4 liters home oxygen at baseline Hypertension Dyslipidemia Diabetes mellitus -continue Bumex 1mg PO BID -continue metoprolol 25mg BID -continue digoxin 250mcg (levels were low so unclear compliance) -diltiazem 240mg daily -spironolactone 25mg daily -continue atorvastatin 40mg daily -resume on Eliquis when stable post thoracentesis Problems: Consultation Date/Type/Reason Admit Date/Time Jun 11, 2016 at 14:17 Initial Consult Date 06/12/16 Type of Consultation: Cardiology 24 HR Interval Summary Free Text/Dictation Status post thoracentesis with removal of 650cc. Patient reports shortness of breath improved. Detailed Summary Additional Comments 14 point review of systems without changes. Exam/Review of Systems Vital Signs Vitals Vital Signs Date Time Temp Pulse Resp B/P Pulse Ox O2 Delivery O2 Flow Rate FiO2 06/16/16 14:22 4.0 06/16/16 12:29 85 06/16/16 11:43 97.9 20 116/66 96 06/16/16 07:38 Nasal Cannula 06/14/16 15:40 40 Intake and Output 06/15/16 06/15/16 06/16/16 15:00 23:00 07:00 Intake Total 1000 ml 300 ml Output Total 950 ml 800 ml Balance 50 ml -500 ml Exam Constitutional: alert, oriented Psych: no complaints Head: atraumatic, normocephalic Neck: jvd (10cm) Respiratory: crackles/rales, diminished breath sounds (on left), No clear to auscultation Cardiovascular: edema, No regular rate and rhythm (IRIR), No systolic murmur Gastrointestinal: non-tender, soft 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: nl mental status, nl speech Skin: No rash or lesions Results Result Diagram: 06/16/16 0720 06/16/16 0730 Results 24 hrs Laboratory Tests Test 06/15/16 17:32 06/15/16 19:54 06/16/16 02:16 06/16/16 07:20 Bedside Glucose 332 H 264 H 198 White Blood Count 12.2 #H Red Blood Count 4.03 L Hemoglobin 11.1 L Hematocrit 36.8 L Mean Corpuscular Volume 91.3 Mean Corpuscular Hemoglobin 27.5 L Mean Corpuscular Hemoglobin Concent 30.2 L Red Cell Distribution Width 18.3 H Platelet Count 350 # Mean Platelet Volume 9.9 Neutrophils % 78.8 H Lymphocytes % 11.1 L Monocytes % 8.6 Eosinophils % 0.7 Basophils % 0.2 Nucleated Red Blood Cells % 0.0 Neutrophils # 9.6 H Lymphocytes # 1.4 Monocytes # 1.1 H Eosinophils # 0.1 Basophils # 0.0 Nucleated Red Blood Cells # 0.0 Test 06/16/16 07:30 06/16/16 08:08 06/16/16 12:13 Sodium Level 136 Potassium Level 4.2 Chloride Level 85 L Carbon Dioxide Level 43 *H Anion Gap 12 Blood Urea Nitrogen 17 Creatinine 0.81 Glucose Level 197 Calcium Level 8.3 L Bedside Glucose 179 246 H Medications Medications Current Medications Lorazepam (Ativan) 0.5 mg Q6H PRN IV ANXIETY Last administered on 06/14/16 21: 23; Admin Dose 0.5 MG; Start 06/11/16 at 06:00 Ondansetron HCl (Zofran Tab) 4 mg Q6H PRN PO NAUSEA AND/OR VOMITING; Start at 06:00 Metoclopramide HCl (Reglan) 10 mg Q6H PRN IV NAUSEA AND/OR VOMITING; Start at 06:00 Nitroglycerin (Nitroglycerin (Sl Tab) 0.4 Mg) 1 tab Q5M PRN SL CHEST PAIN; Start 06/11/16 at 06:00 Acetaminophen (Tylenol Tab) 650 mg Q6H PRN PO PAIN LEVEL 1-3 OR FEVER Last administered on 06/16/16 08:44; Admin Dose 650 MG; Start 06/11/16 at 06:00 Acetaminophen/ Hydrocodone Bitart ([place] (5/325)) 1 tab Q6H PRN PO PAIN LEVEL 4 -6; Start 06/11/16 at 06:00 Morphine Sulfate (morphine) 2 mg Q4H PRN IV PAIN LEVEL 7-10; Start 06/11/16 at 06:00 Famotidine (Pepcid) 20 mg Q12 PO Last administered on 06/16/16 08:44; Admin Dose 20 MG; Start 06/11/16 at 09:00 Atorvastatin Calcium (Lipitor) 40 mg HS PO Last administered on 06/15/16 20:26 ; Admin Dose 40 MG; Start 06/11/16 at 21:00 Digoxin (Digoxin) 0.25 mg DAILY@13 PO Last administered on 06/16/16 12:15; Admin Dose 0.25 MG; Start 06/11/16 at 13:00 Diltiazem HCl (Cardizem Cd) 240 mg DAILY PO Last administered on 06/16/16 08: 43; Admin Dose 240 MG; Start 06/11/16 at 09:00 Metoprolol Tartrate (Lopressor) 25 mg BID PO Last administered on 06/16/16 08: 43; Admin Dose 25 MG; Start 06/11/16 at 09:00 Potassium Chloride (Potassium Chloride Pwd/Soln) 20 meq DAILY PO Last administered on 06/16/16 08:43; Admin Dose 20 MEQ; Start 06/11/16 at 09:00 Salmeterol Xinafoate/ Fluticasone (Advair 250/50 Diskus) 1 inh BID INH Last administered on 06/16/16 08:44; Admin Dose 1 INH; Start 06/11/16 at 09:00 Spironolactone (Aldactone) 25 mg DAILY PO Last administered on 06/16/16 08:43 ; Admin Dose 25 MG; Start 06/11/16 at 09:00 Miscellaneous Information 1 ea NOTE XX ; Start 06/11/16 at 08:00 Glucose (Glutose) 15 gm Q15M PRN PO DECREASED GLUCOSE; Start 06/11/16 at 08:00 Glucose (Glutose) 22.5 gm Q15M PRN PO DECREASED GLUCOSE; Start 06/11/16 at 08: 00 Dextrose (D50w Syringe) 25 ml Q15M PRN IV DECREASED GLUCOSE; Start 06/11/16 at 08:00 Dextrose (D50w Syringe) 50 ml Q15M PRN IV DECREASED GLUCOSE; Start 06/11/16 at 08:00 Glucagon (Glucagen) 1 mg Q15M PRN IM DECREASED GLUCOSE; Start 06/11/16 at 08:00 Glucose (Glutose) 15 gm Q15M PRN BUCCAL DECREASED GLUCOSE; Start 06/11/16 at 08 :00 Diagnostic Test (Pha) 1 ea 1 ea 02 XX Last administered on 06/16/16 02:00; Admin Dose 1 EA; Start 06/12/16 at 02:00 Cefepime HCl 50 ml @ 100 mls/hr Q12 IVPB Last administered on 06/16/16 08:42 ; Admin Dose 100 MLS/HR; Start 06/11/16 at 21:00 Levofloxacin/ Dextrose (Levaquin 500mg/ D5W 100 ml (Pmx)) 100 ml @ 100 mls/hr Q24H IVPB Last administered on 06/15/16 16:10; Admin Dose 100 MLS/HR; Start at 16:30 Enoxaparin Sodium (Lovenox) 40 mg DAILY SC Last administered on 06/16/16 08:48 ; Admin Dose 40 MG; Start 06/12/16 at 11:00 Ferrous Gluconate (Fergon) 325 mg BID PO Last administered on 06/16/16 08:44; Admin Dose 325 MG; Start 06/12/16 at 21:00 Insulin Glargine (Lantus) 36 unit QHS SC Last administered on 06/15/16 20:34; Admin Dose 36 UNIT; Start 06/12/16 at 21:00 Guaifenesin (Mucinex) 600 mg BID PO Last administered on 06/16/16 08:43; Admin Dose 600 MG; Start 06/15/16 at 10:00 Zolpidem Tartrate (Ambien) 10 mg HS PRN PO INSOMNIA; Start 06/15/16 at 22:30 CAROLA WHALEY MD Jun 16, 2016 15:56
--- NOTE | 2016-06-16 16:25 | RADRPT ---
PROCEDURE: Ultrasound guided thoracentesis CLINICAL INDICATION: Pleural fluid TECHNIQUE: Multiple sonographic images were obtained through the patient's chest. A site in the p laura's left lower chest was selected and marked. The area was prepped and draped in the usual ster ile fashion. 1% lidocaine was utilized. A 19-gauge Yueh needle was advanced into the pleural space and the introducer was connected to a vacuum drainage system. A total of 650 cc of clear yellow flu id were drained at the end of the procedure. The patient tolerated the procedure well. The specimen was sent for laboratory evaluation. RPTAT: AA COMPARISON: None FINDINGS: Pleural effusion. RPTAT: AA IMPRESSION: Uncomplicated ultrasound-guided left thoracentesis. Physician Lopez Date Time Electronically viewed and signed by Physician Lopez on 06/16/2016 16:24 /
--- NOTE | 2016-06-16 16:27 | RADRPT ---
PROCEDURE: XR Chest. CLINICAL INDICATION: pneumonia, status post left thoracentesis TECHNIQUE: Single frontal view of the chest was obtained. COMPARISON: Chest x-ray from 06/15/2016 FINDINGS: There is no evidence of a pneumothorax. The aortic arch is calcified. There is stable cardiomegaly with stable prominence of interstitial markings, likely due to mild con gestive changes. There is decreased left pleural fluid with a persistent retrocardiac opacity due to atelectasis, inf iltrate, and / or effusion. There is stable small right pleural fluid. There is stable right basilar atelectasis. Opacities ar e again noted in the left mid lung due to atelectasis and / or infiltrate. IMPRESSION: Interval left thoracentesis with decreased left pleural fluid and no evidence of a pneumothorax. Stable retrocardiac opacity due to atelectasis, infiltrate, and / or fluid. Stable small right pleural effusion and bibasilar atelectasis. Stable opacities in the left mid lung due to atelectasis and / or infiltrate. Stable cardiomegaly and mild congestive changes. Aortic atherosclerosis. RPTAT: EE Physician Lopez Date Time Electronically viewed and signed by Physician Lopez on 06/16/2016 16:27 /
[2016-06-16] MEDS: LEVOFLOXACIN 500MG/D5W (PMX) 100 ML IVPB SCH (17:50)
[2016-06-16] MEDS: ATORVASTATIN 40 MG TAB PO SCH (20:26)
[2016-06-16] MEDS: INSULIN GLARGINE [LANtus] 3 ML PEN SC SCH (20:32)
[2016-06-17] VITALS (13 sets, daily range): BP systolic 106–134; BP diastolic 54–77; PULSE 73–100; RESP 16–20
[2016-06-17] MEDS: ACCU-CHEK XX SCH (02:21)
[2016-06-17] MEDS: BUMETANIDE 1 MG TAB PO SCH ×2 (06:33→17:46)
[2016-06-17 07:17] LABS: ADD SCAN DIFF NO
[2016-06-17 07:23] LABS: BASOPHILS % 0.2 % (0.0-2.0); EOSINOPHILS # 0.2 10^3/ul (0.0-0.5); EOSINOPHILS % 1.5 % (0.0-7.0); HEMATOCRIT 36.6 % (37.0-47.0); HEMOGLOBIN 10.8 g/dl (12.0-16.0); LYMPHOCYTES # 1.9 10^3/ul (0.8-2.9); LYMPHOCYTES % 16.2 % (15.0-51.0); MEAN CORPUSCULAR HEMOGLOBIN 27.3 pg (29.0-33.0); MEAN CORPUSCULAR HGB CONC 29.5 g/dl (32.0-37.0); MEAN CORPUSCULAR VOLUME 92.4 fl (82.0-101.0); MEAN PLATELET VOLUME 9.7 fl (7.4-10.4); MONOCYTE # 1.1 10^3/ul (0.3-0.9); MONOCYTES % 9.4 % (0.0-11.0); NEUTROPHIL # 8.4 10^3/ul (1.6-7.5); PLATELET COUNT 349 10^3/UL (140-415); RED BLOOD COUNT 3.96 10^6/ul (4.20-5.40); RED CELL DISTRIBUTION WIDTH 18.5 % (11.5-14.5); WHITE BLOOD COUNT 11.7 10^3/ul (4.8-10.8)
--- NOTE | 2016-06-17 07:36 | CONS ---
Date/Time of Note Date/Time of Note DATE: 06/17/16 TIME: 07:34 Assessment/Plan Assessment/Plan Additional Assessment/Plan Assessment recommendations; 1. Patient admitted with left lower lobe pneumonia status post left thoracentesis yesterday, 650 ml of pleural fluid was removed. 2. History of cardiac arrhythmia. 3. History of obesity. 4. History of right breast cancer. Continue current treatment. Obtain follow-up chest x-ray in 24 hours. Consultation Date/Type/Reason Admit Date/Time Jun 11, 2016 at 14:17 Initial Consult Date 06/12/16 Type of Consultation: Pulmonary 24 HR Interval Summary Free Text/Dictation Patient condition stable. Still complains of mild shortness of breath. Denies any cough wheezing chest pain. Any fever chills. General exam; elderly woman, currently in no distress sitting in a chair by bedside. Awake and alert. Exam/Review of Systems Vital Signs Vitals Vital Signs Date Time Temp Pulse Resp B/P Pulse Ox O2 Delivery O2 Flow Rate FiO2 06/17/16 04:42 4.0 06/17/16 04:10 100 06/17/16 03:39 99.7 18 122/56 91 06/16/16 20:25 Nasal Cannula 06/14/16 15:40 40 Intake and Output 06/16/16 06/16/16 06/17/16 15:00 23:00 07:00 Intake Total 1050 ml 200 ml Output Total 1000 ml 2000 ml Balance 50 ml -1800 ml Exam HEENT exam is; supple neck, no JVD. No lymphadenopathy. Midline trachea. No thyromegaly. Pharynx is clear. Patient a few missing teeth. Pupils are midsize and reactive to light. Chest exam; diminished but clear breath sounds bilaterally. S1-S2 audible, no murmurs. Regular rhythm. Abdomen examination; soft, protuberant. Nontender. Bowel is audible. Extremity exam; no peripheral edema. Pulses 1+ bilaterally. SURVEYOR examination; no focal deficit. Results Result Diagram: 06/17/16 0650 06/16/16 0730 Results 24 hrs Laboratory Tests Test 06/16/16 08:08 06/16/16 12:13 06/16/16 17:49 06/16/16 20:23 Bedside Glucose 179 246 H 297 H 250 H Test 06/17/16 02:06 06/17/16 06:50 Bedside Glucose 166 White Blood Count 11.7 H Red Blood Count 3.96 L Hemoglobin 10.8 L Hematocrit 36.6 L Mean Corpuscular Volume 92.4 Mean Corpuscular Hemoglobin 27.3 L Mean Corpuscular Hemoglobin Concent 29.5 L Red Cell Distribution Width 18.5 H Platelet Count 349 Mean Platelet Volume 9.7 Neutrophils % 72.0 Lymphocytes % 16.2 Monocytes % 9.4 Eosinophils % 1.5 Basophils % 0.2 Nucleated Red Blood Cells % 0.0 Neutrophils # 8.4 H Lymphocytes # 1.9 Monocytes # 1.1 H Eosinophils # 0.2 Basophils # 0.0 Nucleated Red Blood Cells # 0.0 Medications Medications Current Medications Lorazepam (Ativan) 0.5 mg Q6H PRN IV ANXIETY Last administered on 06/14/16 21: 23; Admin Dose 0.5 MG; Start 06/11/16 at 06:00 Ondansetron HCl (Zofran Tab) 4 mg Q6H PRN PO NAUSEA AND/OR VOMITING; Start at 06:00 Metoclopramide HCl (Reglan) 10 mg Q6H PRN IV NAUSEA AND/OR VOMITING; Start at 06:00 Nitroglycerin (Nitroglycerin (Sl Tab) 0.4 Mg) 1 tab Q5M PRN SL CHEST PAIN; Start 06/11/16 at 06:00 Acetaminophen (Tylenol Tab) 650 mg Q6H PRN PO PAIN LEVEL 1-3 OR FEVER Last administered on 06/16/16 08:44; Admin Dose 650 MG; Start 06/11/16 at 06:00 Acetaminophen/ Hydrocodone Bitart ([place] (5/325)) 1 tab Q6H PRN PO PAIN LEVEL 4 -6; Start 06/11/16 at 06:00 Morphine Sulfate (morphine) 2 mg Q4H PRN IV PAIN LEVEL 7-10; Start 06/11/16 at 06:00 Famotidine (Pepcid) 20 mg Q12 PO Last administered on 06/16/16 20:26; Admin Dose 20 MG; Start 06/11/16 at 09:00 Atorvastatin Calcium (Lipitor) 40 mg HS PO Last administered on 06/16/16 20:26 ; Admin Dose 40 MG; Start 06/11/16 at 21:00 Digoxin (Digoxin) 0.25 mg DAILY@13 PO Last administered on 06/16/16 12:15; Admin Dose 0.25 MG; Start 06/11/16 at 13:00 Diltiazem HCl (Cardizem Cd) 240 mg DAILY PO Last administered on 06/16/16 08: 43; Admin Dose 240 MG; Start 06/11/16 at 09:00 Metoprolol Tartrate (Lopressor) 25 mg BID PO Last administered on 06/16/16 20: 27; Admin Dose 25 MG; Start 06/11/16 at 09:00 Potassium Chloride (Potassium Chloride Pwd/Soln) 20 meq DAILY PO Last administered on 06/16/16 08:43; Admin Dose 20 MEQ; Start 06/11/16 at 09:00 Salmeterol Xinafoate/ Fluticasone (Advair 250/50 Diskus) 1 inh BID INH Last administered on 06/16/16 20:26; Admin Dose 1 INH; Start 06/11/16 at 09:00 Spironolactone (Aldactone) 25 mg DAILY PO Last administered on 06/16/16 08:43 ; Admin Dose 25 MG; Start 06/11/16 at 09:00 Miscellaneous Information 1 ea NOTE XX ; Start 06/11/16 at 08:00 Glucose (Glutose) 15 gm Q15M PRN PO DECREASED GLUCOSE; Start 06/11/16 at 08:00 Glucose (Glutose) 22.5 gm Q15M PRN PO DECREASED GLUCOSE; Start 06/11/16 at 08: 00 Dextrose (D50w Syringe) 25 ml Q15M PRN IV DECREASED GLUCOSE; Start 06/11/16 at 08:00 Dextrose (D50w Syringe) 50 ml Q15M PRN IV DECREASED GLUCOSE; Start 06/11/16 at 08:00 Glucagon (Glucagen) 1 mg Q15M PRN IM DECREASED GLUCOSE; Start 06/11/16 at 08:00 Glucose (Glutose) 15 gm Q15M PRN BUCCAL DECREASED GLUCOSE; Start 06/11/16 at 08 :00 Diagnostic Test (Pha) 1 ea 1 ea 02 XX Last administered on 06/17/16 02:21; Admin Dose 1 EA; Start 06/12/16 at 02:00 Cefepime HCl 50 ml @ 100 mls/hr Q12 IVPB Last administered on 06/16/16 20:26 ; Admin Dose 100 MLS/HR; Start 06/11/16 at 21:00 Levofloxacin/ Dextrose (Levaquin 500mg/ D5W 100 ml (Pmx)) 100 ml @ 100 mls/hr Q24H IVPB Last administered on 06/16/16 17:50; Admin Dose 100 MLS/HR; Start at 16:30 Enoxaparin Sodium (Lovenox) 40 mg DAILY SC Last administered on 06/16/16 08:48 ; Admin Dose 40 MG; Start 06/12/16 at 11:00 Ferrous Gluconate (Fergon) 325 mg BID PO Last administered on 06/16/16 20:26; Admin Dose 325 MG; Start 06/12/16 at 21:00 Insulin Glargine (Lantus) 36 unit QHS SC Last administered on 06/16/16 20:32; Admin Dose 36 UNIT; Start 06/12/16 at 21:00 Guaifenesin (Mucinex) 600 mg BID PO Last administered on 06/16/16 20:26; Admin Dose 600 MG; Start 06/15/16 at 10:00 Zolpidem Tartrate (Ambien) 10 mg HS PRN PO INSOMNIA; Start 06/15/16 at 22:30 MAGALYS CHAPIN Jun 17, 2016 07:36
[2016-06-17 07:38] LABS: POTASSIUM 4.3 mmol/L (3.5-5.1)
[2016-06-17 07:41] LABS: CREATININE 0.74 mg/dl (0.44-1.00)
[2016-06-17 07:42] LABS: CALCIUM 8.1 mg/dl (8.4-10.2)
[2016-06-17] MEDS: INSULIN ASPART [NOVOLOG] 3 ML PEN SC SCH ×7 (08:28→20:07)
[2016-06-17] MEDS: SALMETEROL/FLUTICASONE 250/50 INHA INH SCH ×2 (08:32→20:07)
[2016-06-17] MEDS: GUAIFENESIN LA 600 MG TABSR PO SCH ×2 (08:50→20:06)
[2016-06-17] MEDS: SPIRONOLACTONE 25 MG TAB PO SCH (08:50)
[2016-06-17] MEDS: DILTIAZEM (CD) 240 MG CAP PO SCH (08:50)
[2016-06-17] MEDS: METOPROLOL 25 MG TAB PO SCH ×2 (08:50→20:06)
[2016-06-17] MEDS: FAMOTIDINE 20 MG TAB PO SCH ×2 (08:50→20:06)
[2016-06-17] MEDS: FERROUS GLUCONATE (EC) 325 MG TAB PO SCH ×2 (08:50→20:06)
[2016-06-17] MEDS: ENOXAPARIN 40 MG/0.4 ML SYG SC SCH (08:55)
[2016-06-17] MEDS: CEFEPIME 1GM/50 ML (PMX) 50 ML IVPB SCH ×2 (10:53→20:05)
[2016-06-17] MEDS: POTASSIUM CHLORIDE (SR) 20 MEQ TAB PO SCH (10:56)
[2016-06-17] MEDS: DIGOXIN 0.25 MG TAB PO SCH (12:40)
--- NOTE | 2016-06-17 13:56 | PN ---
Date/Time of Note Date/Time of Note DATE: 06/17/16 TIME: 13:54 Assessment/Plan VTE Prophylaxis VTE Prophylaxis Intervention: LMWH Lines/Catheters IV [facility] Assessment/Plan Chief Complaint/Hosp Course Assessment and plan 1. Acute on chronic respiratory failure multifactorial. Patient noted with COPD as well as CHF. Continue on bronchodilators. Continue on oxygen. Patient on diuretics.improved status post thoracentesis 2. Large subsided pleural effusion with underlying atelectasis/consolidation. cont on diuretics. Improved status post or symptoms 3. Healthcare associated pneumonia. Continue antibiotics. 4. Pulmonary hypertension. Patient noted with PASP of 45 mmHg. continue on on supplemental oxygen. titrate down as tolerated. 5. Type 2 diabetes. A1c 8.8. Is on insulin regimen. We'll adjust as needed 6. Essential hypertension. Continue on anti-hypertensives and adjust as needed 7. COPD. Patient oxygen dependent. Titrate down on O2 as tolerated. Continue on bronchodilators therapy Disposition and plan: Physical therapy ordered. Encourage ambulation. Continue on O2. Follow up on a.m. chest radiograph Discussed plan of care with Dr. Adams Problems: Subjective 24 Hr Interval Summary Free Text/Dictation still state she has dyspnea on exertion but improved s/p thoracentesis Exam/Review of Systems Vital Signs Vitals Vital Signs Date Time Temp Pulse Resp B/P Pulse Ox O2 Delivery O2 Flow Rate FiO2 06/17/16 12:07 98 06/17/16 11:59 97.9 20 106/54 91 06/17/16 04:42 4.0 06/16/16 20:25 Nasal Cannula 06/14/16 15:40 40 Intake and Output 06/16/16 06/16/16 06/17/16 15:00 23:00 07:00 Intake Total 1050 ml 200 ml Output Total 1000 ml 2000 ml Balance 50 ml -1800 ml Exam General: no acute distress seen Eyes: pupils equal round Neck: still no jvd Cardiac: Regular rate Pulmonary: Still diminished bilaterally on bases GI: Soft nontender Extremities: still with edema ble today Skin: Clean dry and intact Neurologic: Alert to person place and time and situation Results Result Diagram: 06/17/16 0650 06/17/16 0650 Results 24 hrs Laboratory Tests Test 06/16/16 17:49 06/16/16 20:23 06/17/16 02:06 06/17/16 06:50 Bedside Glucose 297 H 250 H 166 White Blood Count 11.7 H Red Blood Count 3.96 L Hemoglobin 10.8 L Hematocrit 36.6 L Mean Corpuscular Volume 92.4 Mean Corpuscular Hemoglobin 27.3 L Mean Corpuscular Hemoglobin Concent 29.5 L Red Cell Distribution Width 18.5 H Platelet Count 349 Mean Platelet Volume 9.7 Neutrophils % 72.0 Lymphocytes % 16.2 Monocytes % 9.4 Eosinophils % 1.5 Basophils % 0.2 Nucleated Red Blood Cells % 0.0 Neutrophils # 8.4 H Lymphocytes # 1.9 Monocytes # 1.1 H Eosinophils # 0.2 Basophils # 0.0 Nucleated Red Blood Cells # 0.0 Sodium Level 135 Potassium Level 4.3 Chloride Level 87 L Carbon Dioxide Level 41 *H Anion Gap 12 Blood Urea Nitrogen 17 Creatinine 0.74 Glucose Level 161 Calcium Level 8.1 L Test 06/17/16 08:12 06/17/16 12:32 Bedside Glucose 162 120 Medications Medications Current Medications Lorazepam (Ativan) 0.5 mg Q6H PRN IV ANXIETY Last administered on 06/14/16 21: 23; Admin Dose 0.5 MG; Start 06/11/16 at 06:00 Ondansetron HCl (Zofran Tab) 4 mg Q6H PRN PO NAUSEA AND/OR VOMITING; Start at 06:00 Metoclopramide HCl (Reglan) 10 mg Q6H PRN IV NAUSEA AND/OR VOMITING; Start at 06:00 Nitroglycerin (Nitroglycerin (Sl Tab) 0.4 Mg) 1 tab Q5M PRN SL CHEST PAIN; Start 06/11/16 at 06:00 Acetaminophen (Tylenol Tab) 650 mg Q6H PRN PO PAIN LEVEL 1-3 OR FEVER Last administered on 06/16/16 08:44; Admin Dose 650 MG; Start 06/11/16 at 06:00 Acetaminophen/ Hydrocodone Bitart ([place] (5/325)) 1 tab Q6H PRN PO PAIN LEVEL 4 -6; Start 06/11/16 at 06:00 Morphine Sulfate (morphine) 2 mg Q4H PRN IV PAIN LEVEL 7-10; Start 06/11/16 at 06:00 Famotidine (Pepcid) 20 mg Q12 PO Last administered on 06/17/16 08:50; Admin Dose 20 MG; Start 06/11/16 at 09:00 Atorvastatin Calcium (Lipitor) 40 mg HS PO Last administered on 06/16/16 20:26 ; Admin Dose 40 MG; Start 06/11/16 at 21:00 Digoxin (Digoxin) 0.25 mg DAILY@13 PO Last administered on 06/17/16 12:40; Admin Dose 0.25 MG; Start 06/11/16 at 13:00 Diltiazem HCl (Cardizem Cd) 240 mg DAILY PO Last administered on 06/17/16 08: 50; Admin Dose 240 MG; Start 06/11/16 at 09:00 Metoprolol Tartrate (Lopressor) 25 mg BID PO Last administered on 06/17/16 08: 50; Admin Dose 25 MG; Start 06/11/16 at 09:00 Salmeterol Xinafoate/ Fluticasone (Advair 250/50 Diskus) 1 inh BID INH Last administered on 06/17/16 08:32; Admin Dose 1 INH; Start 06/11/16 at 09:00 Spironolactone (Aldactone) 25 mg DAILY PO Last administered on 06/17/16 08:50 ; Admin Dose 25 MG; Start 06/11/16 at 09:00 Miscellaneous Information 1 ea NOTE XX ; Start 06/11/16 at 08:00 Glucose (Glutose) 15 gm Q15M PRN PO DECREASED GLUCOSE; Start 06/11/16 at 08:00 Glucose (Glutose) 22.5 gm Q15M PRN PO DECREASED GLUCOSE; Start 06/11/16 at 08: 00 Dextrose (D50w Syringe) 25 ml Q15M PRN IV DECREASED GLUCOSE; Start 06/11/16 at 08:00 Dextrose (D50w Syringe) 50 ml Q15M PRN IV DECREASED GLUCOSE; Start 06/11/16 at 08:00 Glucagon (Glucagen) 1 mg Q15M PRN IM DECREASED GLUCOSE; Start 06/11/16 at 08:00 Glucose (Glutose) 15 gm Q15M PRN BUCCAL DECREASED GLUCOSE; Start 06/11/16 at 08 :00 Diagnostic Test (Pha) 1 ea 1 ea 02 XX Last administered on 06/17/16 02:21; Admin Dose 1 EA; Start 06/12/16 at 02:00 Cefepime HCl 50 ml @ 100 mls/hr Q12 IVPB Last administered on 06/17/16 10:53 ; Admin Dose 100 MLS/HR; Start 06/11/16 at 21:00 Levofloxacin/ Dextrose (Levaquin 500mg/ D5W 100 ml (Pmx)) 100 ml @ 100 mls/hr Q24H IVPB Last administered on 06/16/16 17:50; Admin Dose 100 MLS/HR; Start at 16:30 Enoxaparin Sodium (Lovenox) 40 mg DAILY SC Last administered on 06/17/16 08:55 ; Admin Dose 40 MG; Start 06/12/16 at 11:00 Ferrous Gluconate (Fergon) 325 mg BID PO Last administered on 06/17/16 08:50; Admin Dose 325 MG; Start 06/12/16 at 21:00 Insulin Glargine (Lantus) 36 unit QHS SC Last administered on 06/16/16 20:32; Admin Dose 36 UNIT; Start 06/12/16 at 21:00 Guaifenesin (Mucinex) 600 mg BID PO Last administered on 06/17/16 08:50; Admin Dose 600 MG; Start 06/15/16 at 10:00 Zolpidem Tartrate (Ambien) 10 mg HS PRN PO INSOMNIA; Start 06/15/16 at 22:30 Potassium Chloride (Klor-Con 20) 20 meq DAILY PO Last administered on 10:56; Admin Dose 20 MEQ; Start 06/17/16 at 09:00 EDUARDO GOLDSTEIN Jun 17, 2016 13:56
--- NOTE | 2016-06-17 15:49 | CONS ---
Date/Time of Note Date/Time of Note DATE: 06/17/16 TIME: 15:47 Assessment/Plan Assessment/Plan Chief Complaint/Hosp Course Acute on chronic hypoxic respiratory failure - likely multifactorial including CHF, pleural effusion and pneumonia Acute on chronic diastolic heart failure - echocardiogram 11/14/2015 showed LVEF 55% Chronic atrial fibrillation - HR overall controlled currently. On Eliquis at home Pneumonia/pleural effusion - status post thoracentesis 06/16/2016 Chronic obstructive pulmonary disease - on 4 liters home oxygen at baseline Hypertension Dyslipidemia Diabetes mellitus -continue Bumex 1mg PO BID -continue metoprolol 25mg BID -continue digoxin 250mcg (levels were low so unclear compliance) -diltiazem 240mg daily -spironolactone 25mg daily -continue atorvastatin 40mg daily -resume on Eliquis when stable post thoracentesis and no additional procedures planned Problems: Consultation Date/Type/Reason Admit Date/Time Jun 11, 2016 at 14:17 Initial Consult Date 06/12/16 Type of Consultation: Cardiology 24 HR Interval Summary Free Text/Dictation Shortness of breath improving. Detailed Summary Additional Comments 14 point review of systems without changes. Exam/Review of Systems Vital Signs Vitals Vital Signs Date Time Temp Pulse Resp B/P Pulse Ox O2 Delivery O2 Flow Rate FiO2 06/17/16 12:07 98 06/17/16 11:59 97.9 20 106/54 91 06/17/16 04:42 4.0 06/16/16 20:25 Nasal Cannula 06/14/16 15:40 40 Intake and Output 06/16/16 06/16/16 06/17/16 15:00 23:00 07:00 Intake Total 1050 ml 200 ml Output Total 1000 ml 2000 ml Balance 50 ml -1800 ml Exam Constitutional: alert, oriented Psych: no complaints Head: atraumatic, normocephalic Neck: jvd (10cm) Respiratory: crackles/rales, diminished breath sounds (on left), No clear to auscultation Cardiovascular: edema, No regular rate and rhythm (IRIR), No systolic murmur Gastrointestinal: non-tender, soft 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: nl mental status, nl speech Skin: No rash or lesions Results Result Diagram: 06/17/16 0650 06/17/16 0650 Results 24 hrs Laboratory Tests Test 06/16/16 17:49 06/16/16 20:23 06/17/16 02:06 06/17/16 06:50 Bedside Glucose 297 H 250 H 166 White Blood Count 11.7 H Red Blood Count 3.96 L Hemoglobin 10.8 L Hematocrit 36.6 L Mean Corpuscular Volume 92.4 Mean Corpuscular Hemoglobin 27.3 L Mean Corpuscular Hemoglobin Concent 29.5 L Red Cell Distribution Width 18.5 H Platelet Count 349 Mean Platelet Volume 9.7 Neutrophils % 72.0 Lymphocytes % 16.2 Monocytes % 9.4 Eosinophils % 1.5 Basophils % 0.2 Nucleated Red Blood Cells % 0.0 Neutrophils # 8.4 H Lymphocytes # 1.9 Monocytes # 1.1 H Eosinophils # 0.2 Basophils # 0.0 Nucleated Red Blood Cells # 0.0 Sodium Level 135 Potassium Level 4.3 Chloride Level 87 L Carbon Dioxide Level 41 *H Anion Gap 12 Blood Urea Nitrogen 17 Creatinine 0.74 Glucose Level 161 Calcium Level 8.1 L Test 06/17/16 08:12 06/17/16 12:32 Bedside Glucose 162 120 Medications Medications Current Medications Lorazepam (Ativan) 0.5 mg Q6H PRN IV ANXIETY Last administered on 06/14/16 21: 23; Admin Dose 0.5 MG; Start 06/11/16 at 06:00 Ondansetron HCl (Zofran Tab) 4 mg Q6H PRN PO NAUSEA AND/OR VOMITING; Start at 06:00 Metoclopramide HCl (Reglan) 10 mg Q6H PRN IV NAUSEA AND/OR VOMITING; Start at 06:00 Nitroglycerin (Nitroglycerin (Sl Tab) 0.4 Mg) 1 tab Q5M PRN SL CHEST PAIN; Start 06/11/16 at 06:00 Acetaminophen (Tylenol Tab) 650 mg Q6H PRN PO PAIN LEVEL 1-3 OR FEVER Last administered on 06/16/16 08:44; Admin Dose 650 MG; Start 06/11/16 at 06:00 Acetaminophen/ Hydrocodone Bitart ([place] (5/325)) 1 tab Q6H PRN PO PAIN LEVEL 4 -6; Start 06/11/16 at 06:00 Morphine Sulfate (morphine) 2 mg Q4H PRN IV PAIN LEVEL 7-10; Start 06/11/16 at 06:00 Famotidine (Pepcid) 20 mg Q12 PO Last administered on 06/17/16 08:50; Admin Dose 20 MG; Start 06/11/16 at 09:00 Atorvastatin Calcium (Lipitor) 40 mg HS PO Last administered on 06/16/16 20:26 ; Admin Dose 40 MG; Start 06/11/16 at 21:00 Digoxin (Digoxin) 0.25 mg DAILY@13 PO Last administered on 06/17/16 12:40; Admin Dose 0.25 MG; Start 06/11/16 at 13:00 Diltiazem HCl (Cardizem Cd) 240 mg DAILY PO Last administered on 06/17/16 08: 50; Admin Dose 240 MG; Start 06/11/16 at 09:00 Metoprolol Tartrate (Lopressor) 25 mg BID PO Last administered on 06/17/16 08: 50; Admin Dose 25 MG; Start 06/11/16 at 09:00 Salmeterol Xinafoate/ Fluticasone (Advair 250/50 Diskus) 1 inh BID INH Last administered on 06/17/16 08:32; Admin Dose 1 INH; Start 06/11/16 at 09:00 Spironolactone (Aldactone) 25 mg DAILY PO Last administered on 06/17/16 08:50 ; Admin Dose 25 MG; Start 06/11/16 at 09:00 Miscellaneous Information 1 ea NOTE XX ; Start 06/11/16 at 08:00 Glucose (Glutose) 15 gm Q15M PRN PO DECREASED GLUCOSE; Start 06/11/16 at 08:00 Glucose (Glutose) 22.5 gm Q15M PRN PO DECREASED GLUCOSE; Start 06/11/16 at 08: 00 Dextrose (D50w Syringe) 25 ml Q15M PRN IV DECREASED GLUCOSE; Start 06/11/16 at 08:00 Dextrose (D50w Syringe) 50 ml Q15M PRN IV DECREASED GLUCOSE; Start 06/11/16 at 08:00 Glucagon (Glucagen) 1 mg Q15M PRN IM DECREASED GLUCOSE; Start 06/11/16 at 08:00 Glucose (Glutose) 15 gm Q15M PRN BUCCAL DECREASED GLUCOSE; Start 06/11/16 at 08 :00 Diagnostic Test (Pha) 1 ea 1 ea 02 XX Last administered on 06/17/16 02:21; Admin Dose 1 EA; Start 06/12/16 at 02:00 Cefepime HCl 50 ml @ 100 mls/hr Q12 IVPB Last administered on 06/17/16 10:53 ; Admin Dose 100 MLS/HR; Start 06/11/16 at 21:00 Levofloxacin/ Dextrose (Levaquin 500mg/ D5W 100 ml (Pmx)) 100 ml @ 100 mls/hr Q24H IVPB Last administered on 06/16/16 17:50; Admin Dose 100 MLS/HR; Start at 16:30 Enoxaparin Sodium (Lovenox) 40 mg DAILY SC Last administered on 06/17/16 08:55 ; Admin Dose 40 MG; Start 06/12/16 at 11:00 Ferrous Gluconate (Fergon) 325 mg BID PO Last administered on 06/17/16 08:50; Admin Dose 325 MG; Start 06/12/16 at 21:00 Insulin Glargine (Lantus) 36 unit QHS SC Last administered on 06/16/16 20:32; Admin Dose 36 UNIT; Start 06/12/16 at 21:00 Guaifenesin (Mucinex) 600 mg BID PO Last administered on 06/17/16 08:50; Admin Dose 600 MG; Start 06/15/16 at 10:00 Zolpidem Tartrate (Ambien) 10 mg HS PRN PO INSOMNIA; Start 06/15/16 at 22:30 Potassium Chloride (Klor-Con 20) 20 meq DAILY PO Last administered on 10:56; Admin Dose 20 MEQ; Start 06/17/16 at 09:00 CAROLA WHALEY MD Jun 17, 2016 15:49
[2016-06-17] MEDS: LEVOFLOXACIN 500MG/D5W (PMX) 100 ML IVPB SCH (17:46)
[2016-06-17] MEDS: INSULIN GLARGINE [LANtus] 3 ML PEN SC SCH (20:05)
[2016-06-17] MEDS: ATORVASTATIN 40 MG TAB PO SCH (20:06)
[2016-06-18] VITALS (12 sets, daily range): BP systolic 102–128; BP diastolic 59–75; PULSE 84–113; RESP 16–20
[2016-06-18] MEDS: ACCU-CHEK XX SCH (02:00)
[2016-06-18] MEDS: BUMETANIDE 1 MG TAB PO SCH ×2 (06:33→17:42)
[2016-06-18 07:11] LABS: ADD SCAN DIFF NO
[2016-06-18 07:20] LABS: BASOPHILS % 0.3 % (0.0-2.0); EOSINOPHILS # 0.2 10^3/ul (0.0-0.5); EOSINOPHILS % 1.5 % (0.0-7.0); HEMATOCRIT 36.3 % (37.0-47.0); HEMOGLOBIN 11.1 g/dl (12.0-16.0); LYMPHOCYTES # 2.1 10^3/ul (0.8-2.9); LYMPHOCYTES % 20.1 % (15.0-51.0); MEAN CORPUSCULAR HEMOGLOBIN 28.1 pg (29.0-33.0); MEAN CORPUSCULAR HGB CONC 30.6 g/dl (32.0-37.0); MEAN CORPUSCULAR VOLUME 91.9 fl (82.0-101.0); MEAN PLATELET VOLUME 9.2 fl (7.4-10.4); MONOCYTE # 0.9 10^3/ul (0.3-0.9); MONOCYTES % 9.1 % (0.0-11.0); NEUTROPHILS % 67.6 % (39.0-77.0); PLATELET COUNT 398 10^3/UL (140-415); RED BLOOD COUNT 3.95 10^6/ul (4.20-5.40); RED CELL DISTRIBUTION WIDTH 18.2 % (11.5-14.5); WHITE BLOOD COUNT 10.3 10^3/ul (4.8-10.8)
[2016-06-18 07:41] LABS: POTASSIUM 4.4 mmol/L (3.5-5.1)
[2016-06-18 07:43] LABS: CREATININE 0.82 mg/dl (0.44-1.00)
[2016-06-18 07:44] LABS: CALCIUM 8.3 mg/dl (8.4-10.2)
[2016-06-18] MEDS: INSULIN ASPART [NOVOLOG] 3 ML PEN SC SCH ×7 (08:37→22:59)
[2016-06-18] MEDS: DILTIAZEM (CD) 240 MG CAP PO SCH (08:51)
[2016-06-18] MEDS: CEFEPIME 1GM/50 ML (PMX) 50 ML IVPB SCH ×2 (08:52→22:51)
[2016-06-18] MEDS: SPIRONOLACTONE 25 MG TAB PO SCH (08:52)
[2016-06-18] MEDS: POTASSIUM CHLORIDE (SR) 20 MEQ TAB PO SCH (08:52)
[2016-06-18] MEDS: METOPROLOL 25 MG TAB PO SCH ×2 (08:52→22:52)
[2016-06-18] MEDS: FERROUS GLUCONATE (EC) 325 MG TAB PO SCH ×2 (08:52→22:51)
[2016-06-18] MEDS: GUAIFENESIN LA 600 MG TABSR PO SCH ×2 (08:52→22:51)
[2016-06-18] MEDS: FAMOTIDINE 20 MG TAB PO SCH ×2 (08:52→22:52)
[2016-06-18] MEDS: SALMETEROL/FLUTICASONE 250/50 INHA INH SCH ×2 (08:53→22:50)
[2016-06-18] MEDS: ENOXAPARIN 40 MG/0.4 ML SYG SC SCH (08:54)
--- NOTE | 2016-06-18 10:50 | RADRPT ---
PROCEDURE: XR Chest. CLINICAL INDICATION: CHF TECHNIQUE: Single frontal chest x-ray. COMPARISON: 06/16/2016 FINDINGS: Hazy bibasilar pulmonary opacities are grossly unchanged. There is no pneumothorax. There is stabl e moderate cardiomegaly. Aortic atherosclerotic calcifications noted. The osseous structures are r emarkable for degenerative spondylosis of the spine. IMPRESSION: 1. Stable hazy bibasilar pulmonary opacities, greater on the left, possibly atelectasis and/or mild to moderate pleural effusions. 2. Stable moderate cardiomegaly and aortic atherosclerosis. 3. No significant interval change. RPTAT: QQ .Derick Valadez MD, Date Time Electronically viewed and signed by .Derick Valadez MD, on 06/18/2016 10:50 .R/
--- NOTE | 2016-06-18 10:56 | PN ---
Date/Time of Note Date/Time of Note DATE: 06/18/16 TIME: 10:52 Assessment/Plan VTE Prophylaxis VTE Prophylaxis Intervention: LMWH Lines/Catheters IV C[facility]ter Type [facility]from [facility] [place] Assessment/Plan Chief Complaint/Hosp Course Assessment and plan 1. Acute on chronic respiratory failure multifactorial. Patient noted with COPD as well as CHF. Continue on bronchodilators. Continue on oxygen. Patient on diuretics.improved status post thoracentesis. cont pulmonary regimen 2. Large subsided pleural effusion with underlying atelectasis/consolidation. cont on diuretics. Improved status post thoracentesis 3. Healthcare associated pneumonia. Continue antibiotics. 4. Pulmonary hypertension. Patient noted with PASP of 45 mmHg. continue on on supplemental oxygen. titrate down as tolerated. 5. Type 2 diabetes. A1c 8.8. Is on insulin regimen. We'll adjust as needed. stable 6. Essential hypertension. Continue on anti-hypertensives and adjust as needed. stable 7. COPD. Patient oxygen dependent. Titrate down on O2 as tolerated. Continue on bronchodilators therapy Disposition and plan: cont with physical therapy. follow up on chest imaging. cont pulmonary tx. d/c when medically stable and cleared by consultants Discussed plan of care with Dr. Adams Problems: Subjective 24 Hr Interval Summary Free Text/Dictation still with marked dyspnea on exertion. does report she is getting closer to her baseline of breathing Exam/Review of Systems Vital Signs Vitals Vital Signs Date Time Temp Pulse Resp B/P Pulse Ox O2 Delivery O2 Flow Rate FiO2 06/18/16 08:13 113 06/18/16 07:54 98.5 20 112/61 92 06/18/16 00:56 4.0 06/17/16 20:05 Nasal Cannula 06/14/16 15:40 40 Intake and Output 06/17/16 06/17/16 06/18/16 15:00 23:00 07:00 Intake Total 850 ml 250 ml Output Total 1000 ml Balance -150 ml 250 ml Exam General: does appear in better spirits. still reports some dyspnea Eyes: pupils equal round, anicteric Neck: no apparent jvd Cardiac: Regular rate still Pulmonary:no wheezing/rhonchi. dim at bases GI: Soft nontender Extremities: still with edema ble unchanged Skin: Clean dry and intact Neurologic: Alert to person place and time and situation Results Result Diagram: 06/18/1640 06/18/16 0640 Results 24 hrs Laboratory Tests Test 06/17/16 12:32 06/17/16 16:18 06/17/16 19:59 06/18/16 06:40 Bedside Glucose 120 209 138 White Blood Count 10.3 Red Blood Count 3.95 L Hemoglobin 11.1 L Hematocrit 36.3 L Mean Corpuscular Volume 91.9 Mean Corpuscular Hemoglobin 28.1 L Mean Corpuscular Hemoglobin Concent 30.6 L Red Cell Distribution Width 18.2 H Platelet Count 398 Mean Platelet Volume 9.2 Neutrophils % 67.6 Lymphocytes % 20.1 Monocytes % 9.1 Eosinophils % 1.5 Basophils % 0.3 Nucleated Red Blood Cells % 0.0 Neutrophils # 7.0 Lymphocytes # 2.1 Monocytes # 0.9 Eosinophils # 0.2 Basophils # 0.0 Nucleated Red Blood Cells # 0.0 Sodium Level 133 L Potassium Level 4.4 Chloride Level 87 L Carbon Dioxide Level 39 H Anion Gap 11 Blood Urea Nitrogen 17 Creatinine 0.82 Glucose Level 162 Calcium Level 8.3 L Test 06/18/16 08:02 Bedside Glucose 171 Medications Medications Current Medications Lorazepam (Ativan) 0.5 mg Q6H PRN IV ANXIETY Last administered on 06/14/16 21: 23; Admin Dose 0.5 MG; Start 06/11/16 at 06:00 Ondansetron HCl (Zofran Tab) 4 mg Q6H PRN PO NAUSEA AND/OR VOMITING; Start at 06:00 Metoclopramide HCl (Reglan) 10 mg Q6H PRN IV NAUSEA AND/OR VOMITING; Start at 06:00 Nitroglycerin (Nitroglycerin (Sl Tab) 0.4 Mg) 1 tab Q5M PRN SL CHEST PAIN; Start 06/11/16 at 06:00 Acetaminophen (Tylenol Tab) 650 mg Q6H PRN PO PAIN LEVEL 1-3 OR FEVER Last administered on 06/16/16 08:44; Admin Dose 650 MG; Start 06/11/16 at 06:00 Acetaminophen/ Hydrocodone Bitart ([place] (5/325)) 1 tab Q6H PRN PO PAIN LEVEL 4 -6; Start 06/11/16 at 06:00 Morphine Sulfate (morphine) 2 mg Q4H PRN IV PAIN LEVEL 7-10; Start 06/11/16 at 06:00 Famotidine (Pepcid) 20 mg Q12 PO Last administered on 06/18/16 08:52; Admin Dose 20 MG; Start 06/11/16 at 09:00 Atorvastatin Calcium (Lipitor) 40 mg HS PO Last administered on 06/17/16 20:06 ; Admin Dose 40 MG; Start 06/11/16 at 21:00 Digoxin (Digoxin) 0.25 mg DAILY@13 PO Last administered on 06/17/16 12:40; Admin Dose 0.25 MG; Start 06/11/16 at 13:00 Diltiazem HCl (Cardizem Cd) 240 mg DAILY PO Last administered on 06/18/16 08:51 ; Admin Dose 240 MG; Start 06/11/16 at 09:00 Metoprolol Tartrate (Lopressor) 25 mg BID PO Last administered on 06/18/16 08: 52; Admin Dose 25 MG; Start 06/11/16 at 09:00 Salmeterol Xinafoate/ Fluticasone (Advair 250/50 Diskus) 1 inh BID INH Last administered on 06/18/16 08:53; Admin Dose 1 INH; Start 06/11/16 at 09:00 Spironolactone (Aldactone) 25 mg DAILY PO Last administered on 06/18/16 08:52; Admin Dose 25 MG; Start 06/11/16 at 09:00 Miscellaneous Information 1 ea NOTE XX ; Start 06/11/16 at 08:00 Glucose (Glutose) 15 gm Q15M PRN PO DECREASED GLUCOSE; Start 06/11/16 at 08:00 Glucose (Glutose) 22.5 gm Q15M PRN PO DECREASED GLUCOSE; Start 06/11/16 at 08: 00 Dextrose (D50w Syringe) 25 ml Q15M PRN IV DECREASED GLUCOSE; Start 06/11/16 at 08:00 Dextrose (D50w Syringe) 50 ml Q15M PRN IV DECREASED GLUCOSE; Start 06/11/16 at 08:00 Glucagon (Glucagen) 1 mg Q15M PRN IM DECREASED GLUCOSE; Start 06/11/16 at 08:00 Glucose (Glutose) 15 gm Q15M PRN BUCCAL DECREASED GLUCOSE; Start 06/11/16 at 08 :00 Diagnostic Test (Pha) 1 ea 1 ea 02 XX Last administered on 06/17/16 02:21; Admin Dose 1 EA; Start 06/12/16 at 02:00 Cefepime HCl 50 ml @ 100 mls/hr Q12 IVPB Last administered on 06/18/16 08:52; Admin Dose 100 MLS/HR; Start 06/11/16 at 21:00 Levofloxacin/ Dextrose (Levaquin 500mg/ D5W 100 ml (Pmx)) 100 ml @ 100 mls/hr Q24H IVPB Last administered on 06/17/16 17:46; Admin Dose 100 MLS/HR; Start at 16:30 Enoxaparin Sodium (Lovenox) 40 mg DAILY SC Last administered on 06/18/16 08:54 ; Admin Dose 40 MG; Start 06/12/16 at 11:00 Ferrous Gluconate (Fergon) 325 mg BID PO Last administered on 06/18/16 08:52; Admin Dose 325 MG; Start 06/12/16 at 21:00 Insulin Glargine (Lantus) 36 unit QHS SC Last administered on 06/17/16 20:05; Admin Dose 36 UNIT; Start 06/12/16 at 21:00 Guaifenesin (Mucinex) 600 mg BID PO Last administered on 06/18/16 08:52; Admin Dose 600 MG; Start 06/15/16 at 10:00 Zolpidem Tartrate (Ambien) 10 mg HS PRN PO INSOMNIA; Start 06/15/16 at 22:30 Potassium Chloride (Klor-Con 20) 20 meq DAILY PO Last administered on 06/18/16 08:52; Admin Dose 20 MEQ; Start 06/17/16 at 09:00 EDUARDO GOLDSTEIN Jun 18, 2016 10:56
[2016-06-18] MEDS: DIGOXIN 0.25 MG TAB PO SCH (12:57)
[2016-06-18] MEDS: IPRATROPIUM (NEB) 0.5 MG/2.5 ML AMP HHN PRN (13:31)
[2016-06-18] MEDS: LEVALBUTEROL (NEB) 1.25 MG/0.5 ML AMP HHN PRN (13:31)
[2016-06-18] MEDS: LEVOFLOXACIN 500MG/D5W (PMX) 100 ML IVPB SCH (17:42)
--- NOTE | 2016-06-18 18:04 | CONS ---
Date/Time of Note Date/Time of Note DATE: 06/18/16 TIME: 18:02 Assessment/Plan Assessment/Plan Chief Complaint/Hosp Course Acute on chronic hypoxic respiratory failure - likely multifactorial including CHF, pleural effusion and pneumonia Acute on chronic diastolic heart failure - echocardiogram 11/14/2015 showed LVEF 55% Chronic atrial fibrillation - HR overall controlled currently. On Eliquis at home Pneumonia/pleural effusion - status post thoracentesis 06/16/2016 Chronic obstructive pulmonary disease - on 4 liters home oxygen at baseline Hypertension Dyslipidemia Diabetes mellitus -continue Bumex 1mg PO BID -continue metoprolol 25mg BID -continue digoxin 250mcg (levels were low so unclear compliance) -diltiazem 240mg daily -spironolactone 25mg daily -continue atorvastatin 40mg daily -resume on Eliquis 5mg BID Problems: Consultation Date/Type/Reason Admit Date/Time Jun 11, 2016 at 14:17 Initial Consult Date 06/12/16 Type of Consultation: Cardiology 24 HR Interval Summary Free Text/Dictation Shortness of breath improving. Detailed Summary Additional Comments 14 point review of systems without changes. Exam/Review of Systems Vital Signs Vitals Vital Signs Date Time Temp Pulse Resp B/P Pulse Ox O2 Delivery O2 Flow Rate FiO2 06/18/16 16:14 84 06/18/16 15:13 98.0 18 128/59 95 06/18/16 13:36 Nasal Cannula 4.0 36 Intake and Output 06/17/16 06/17/16 06/18/16 15:00 23:00 07:00 Intake Total 850 ml 250 ml Output Total 1000 ml Balance -150 ml 250 ml Exam Constitutional: alert, oriented Psych: no complaints Head: atraumatic, normocephalic Neck: jvd (10cm) Respiratory: crackles/rales, diminished breath sounds (on left), No clear to auscultation Cardiovascular: edema, No regular rate and rhythm (IRIR), No systolic murmur Gastrointestinal: non-tender, soft 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: nl mental status, nl speech Skin: No rash or lesions Results Result Diagram: 06/18/16 0640 06/18/16 0640 Results 24 hrs Laboratory Tests Test 06/17/16 19:59 06/18/16 06:40 06/18/16 08:02 06/18/16 11:15 Bedside Glucose 138 171 152 White Blood Count 10.3 Red Blood Count 3.95 L Hemoglobin 11.1 L Hematocrit 36.3 L Mean Corpuscular Volume 91.9 Mean Corpuscular Hemoglobin 28.1 L Mean Corpuscular Hemoglobin Concent 30.6 L Red Cell Distribution Width 18.2 H Platelet Count 398 Mean Platelet Volume 9.2 Neutrophils % 67.6 Lymphocytes % 20.1 Monocytes % 9.1 Eosinophils % 1.5 Basophils % 0.3 Nucleated Red Blood Cells % 0.0 Neutrophils # 7.0 Lymphocytes # 2.1 Monocytes # 0.9 Eosinophils # 0.2 Basophils # 0.0 Nucleated Red Blood Cells # 0.0 Sodium Level 133 L Potassium Level 4.4 Chloride Level 87 L Carbon Dioxide Level 39 H Anion Gap 11 Blood Urea Nitrogen 17 Creatinine 0.82 Glucose Level 162 Calcium Level 8.3 L Test 06/18/16 17:40 Bedside Glucose 304 H Medications Medications Current Medications Lorazepam (Ativan) 0.5 mg Q6H PRN IV ANXIETY Last administered on 06/14/16 21: 23; Admin Dose 0.5 MG; Start 06/11/16 at 06:00 Ondansetron HCl (Zofran Tab) 4 mg Q6H PRN PO NAUSEA AND/OR VOMITING; Start at 06:00 Metoclopramide HCl (Reglan) 10 mg Q6H PRN IV NAUSEA AND/OR VOMITING; Start at 06:00 Nitroglycerin (Nitroglycerin (Sl Tab) 0.4 Mg) 1 tab Q5M PRN SL CHEST PAIN; Start 06/11/16 at 06:00 Acetaminophen (Tylenol Tab) 650 mg Q6H PRN PO PAIN LEVEL 1-3 OR FEVER Last administered on 06/16/16 08:44; Admin Dose 650 MG; Start 06/11/16 at 06:00 Acetaminophen/ Hydrocodone Bitart ([place] (5/325)) 1 tab Q6H PRN PO PAIN LEVEL 4 -6; Start 06/11/16 at 06:00 Morphine Sulfate (morphine) 2 mg Q4H PRN IV PAIN LEVEL 7-10; Start 06/11/16 at 06:00 Famotidine (Pepcid) 20 mg Q12 PO Last administered on 06/18/16 08:52; Admin Dose 20 MG; Start 06/11/16 at 09:00 Atorvastatin Calcium (Lipitor) 40 mg HS PO Last administered on 06/17/16 20:06 ; Admin Dose 40 MG; Start 06/11/16 at 21:00 Digoxin (Digoxin) 0.25 mg DAILY@13 PO Last administered on 06/18/16 12:57; Admin Dose 0.25 MG; Start 06/11/16 at 13:00 Diltiazem HCl (Cardizem Cd) 240 mg DAILY PO Last administered on 06/18/16 08:51 ; Admin Dose 240 MG; Start 06/11/16 at 09:00 Metoprolol Tartrate (Lopressor) 25 mg BID PO Last administered on 06/18/16 08: 52; Admin Dose 25 MG; Start 06/11/16 at 09:00 Salmeterol Xinafoate/ Fluticasone (Advair 250/50 Diskus) 1 inh BID INH Last administered on 06/18/16 08:53; Admin Dose 1 INH; Start 06/11/16 at 09:00 Spironolactone (Aldactone) 25 mg DAILY PO Last administered on 06/18/16 08:52; Admin Dose 25 MG; Start 06/11/16 at 09:00 Miscellaneous Information 1 ea NOTE XX ; Start 06/11/16 at 08:00 Glucose (Glutose) 15 gm Q15M PRN PO DECREASED GLUCOSE; Start 06/11/16 at 08:00 Glucose (Glutose) 22.5 gm Q15M PRN PO DECREASED GLUCOSE; Start 06/11/16 at 08: 00 Dextrose (D50w Syringe) 25 ml Q15M PRN IV DECREASED GLUCOSE; Start 06/11/16 at 08:00 Dextrose (D50w Syringe) 50 ml Q15M PRN IV DECREASED GLUCOSE; Start 06/11/16 at 08:00 Glucagon (Glucagen) 1 mg Q15M PRN IM DECREASED GLUCOSE; Start 06/11/16 at 08:00 Glucose (Glutose) 15 gm Q15M PRN BUCCAL DECREASED GLUCOSE; Start 06/11/16 at 08 :00 Diagnostic Test (Pha) 1 ea 1 ea 02 XX Last administered on 06/17/16 02:21; Admin Dose 1 EA; Start 06/12/16 at 02:00 Cefepime HCl 50 ml @ 100 mls/hr Q12 IVPB Last administered on 06/18/16 08:52; Admin Dose 100 MLS/HR; Start 06/11/16 at 21:00 Levofloxacin/ Dextrose (Levaquin 500mg/ D5W 100 ml (Pmx)) 100 ml @ 100 mls/hr Q24H IVPB Last administered on 06/18/16 17:42; Admin Dose 100 MLS/HR; Start at 16:30 Enoxaparin Sodium (Lovenox) 40 mg DAILY SC Last administered on 06/18/16 08:54 ; Admin Dose 40 MG; Start 06/12/16 at 11:00 Ferrous Gluconate (Fergon) 325 mg BID PO Last administered on 06/18/16 08:52; Admin Dose 325 MG; Start 06/12/16 at 21:00 Insulin Glargine (Lantus) 36 unit QHS SC Last administered on 06/17/16 20:05; Admin Dose 36 UNIT; Start 06/12/16 at 21:00 Guaifenesin (Mucinex) 600 mg BID PO Last administered on 06/18/16 08:52; Admin Dose 600 MG; Start 06/15/16 at 10:00 Zolpidem Tartrate (Ambien) 10 mg HS PRN PO INSOMNIA; Start 06/15/16 at 22:30 Potassium Chloride (Klor-Con 20) 20 meq DAILY PO Last administered on 06/18/16 08:52; Admin Dose 20 MEQ; Start 06/17/16 at 09:00 CAROLA WHALEY MD Jun 18, 2016 18:04
--- NOTE | 2016-06-18 18:53 | CONS ---
Date/Time of Note Date/Time of Note DATE: 06/18/16 TIME: 18:50 Consult Date/Type/Reason Admit Date/Time Jun 11, 2016 at 14:17 Initial Consult Date 06/12/16 Type of Consultation: Pulm Subjective No events overnight. Objective Vital Signs Date Time Temp Pulse Resp B/P Pulse Ox O2 Delivery O2 Flow Rate FiO2 06/18/16 16:14 84 06/18/16 15:13 98.0 18 128/59 95 06/18/16 13:36 Nasal Cannula 4.0 36 Intake and Output 06/17/16 06/17/16 06/18/16 15:00 23:00 07:00 Intake Total 850 ml 250 ml Output Total 1000 ml Balance -150 ml 250 ml Exam HEENT: Neck supple; no JVD; no LAD CVS: RRR, S1 and S2 CHEST: Decreased BS left base ABD: Soft, NT, + BS EXT: No c/c/e Results/Medications Result Diagram: 06/18/16 0640 06/18/16 0640 Results 24 hrs Laboratory Tests Test 06/17/16 19:59 06/18/16 06:40 06/18/16 08:02 06/18/16 11:15 Bedside Glucose 138 171 152 White Blood Count 10.3 Red Blood Count 3.95 L Hemoglobin 11.1 L Hematocrit 36.3 L Mean Corpuscular Volume 91.9 Mean Corpuscular Hemoglobin 28.1 L Mean Corpuscular Hemoglobin Concent 30.6 L Red Cell Distribution Width 18.2 H Platelet Count 398 Mean Platelet Volume 9.2 Neutrophils % 67.6 Lymphocytes % 20.1 Monocytes % 9.1 Eosinophils % 1.5 Basophils % 0.3 Nucleated Red Blood Cells % 0.0 Neutrophils # 7.0 Lymphocytes # 2.1 Monocytes # 0.9 Eosinophils # 0.2 Basophils # 0.0 Nucleated Red Blood Cells # 0.0 Sodium Level 133 L Potassium Level 4.4 Chloride Level 87 L Carbon Dioxide Level 39 H Anion Gap 11 Blood Urea Nitrogen 17 Creatinine 0.82 Glucose Level 162 Calcium Level 8.3 L Test 06/18/16 17:40 Bedside Glucose 304 H Medications Current Medications Lorazepam (Ativan) 0.5 mg Q6H PRN IV ANXIETY Last administered on 06/14/16t 21: 23; Admin Dose 0.5 MG; Start 06/11/16 at 06:00 Ondansetron HCl (Zofran Tab) 4 mg Q6H PRN PO NAUSEA AND/OR VOMITING; Start at 06:00 Metoclopramide HCl (Reglan) 10 mg Q6H PRN IV NAUSEA AND/OR VOMITING; Start at 06:00 Nitroglycerin (Nitroglycerin (Sl Tab) 0.4 Mg) 1 tab Q5M PRN SL CHEST PAIN; Start 06/11/16 at 06:00 Acetaminophen (Tylenol Tab) 650 mg Q6H PRN PO PAIN LEVEL 1-3 OR FEVER Last administered on 06/16/16 08:44; Admin Dose 650 MG; Start 06/11/16 at 06:00 Acetaminophen/ Hydrocodone Bitart ([place] (5/325)) 1 tab Q6H PRN PO PAIN LEVEL 4 -6; Start 06/11/16 at 06:00 Morphine Sulfate (morphine) 2 mg Q4H PRN IV PAIN LEVEL 7-10; Start 06/11/16 at 06:00 Famotidine (Pepcid) 20 mg Q12 PO Last administered on 06/18/16 08:52; Admin Dose 20 MG; Start 06/11/16 at 09:00 Atorvastatin Calcium (Lipitor) 40 mg HS PO Last administered on 06/17/16 20:06 ; Admin Dose 40 MG; Start 06/11/16 at 21:00 Digoxin (Digoxin) 0.25 mg DAILY@13 PO Last administered on 06/18/16 12:57; Admin Dose 0.25 MG; Start 06/11/16 at 13:00 Diltiazem HCl (Cardizem Cd) 240 mg DAILY PO Last administered on 06/18/16 08:51 ; Admin Dose 240 MG; Start 06/11/16 at 09:00 Metoprolol Tartrate (Lopressor) 25 mg BID PO Last administered on 06/18/16 08: 52; Admin Dose 25 MG; Start 06/11/16 at 09:00 Salmeterol Xinafoate/ Fluticasone (Advair 250/50 Diskus) 1 inh BID INH Last administered on 06/18/16 08:53; Admin Dose 1 INH; Start 06/11/16 at 09:00 Spironolactone (Aldactone) 25 mg DAILY PO Last administered on 06/18/16 08:52; Admin Dose 25 MG; Start 06/11/16 at 09:00 Miscellaneous Information 1 ea NOTE XX ; Start 06/11/16 at 08:00 Glucose (Glutose) 15 gm Q15M PRN PO DECREASED GLUCOSE; Start 06/11/16 at 08:00 Glucose (Glutose) 22.5 gm Q15M PRN PO DECREASED GLUCOSE; Start 06/11/16 at 08: 00 Dextrose (D50w Syringe) 25 ml Q15M PRN IV DECREASED GLUCOSE; Start 06/11/16 at 08:00 Dextrose (D50w Syringe) 50 ml Q15M PRN IV DECREASED GLUCOSE; Start 06/11/16 at 08:00 Glucagon (Glucagen) 1 mg Q15M PRN IM DECREASED GLUCOSE; Start 06/11/16 at 08:00 Glucose (Glutose) 15 gm Q15M PRN BUCCAL DECREASED GLUCOSE; Start 06/11/16 at 08 :00 Diagnostic Test (Pha) 1 ea 1 ea 02 XX Last administered on 06/17/16 02:21; Admin Dose 1 EA; Start 06/12/16 at 02:00 Cefepime HCl 50 ml @ 100 mls/hr Q12 IVPB Last administered on 06/18/16 08:52; Admin Dose 100 MLS/HR; Start 06/11/16 at 21:00 Levofloxacin/ Dextrose (Levaquin 500mg/ D5W 100 ml (Pmx)) 100 ml @ 100 mls/hr Q24H IVPB Last administered on 06/18/16 17:42; Admin Dose 100 MLS/HR; Start at 16:30 Ferrous Gluconate (Fergon) 325 mg BID PO Last administered on 06/18/16 08:52; Admin Dose 325 MG; Start 06/12/16 at 21:00 Insulin Glargine (Lantus) 36 unit QHS SC Last administered on 06/17/16 20:05; Admin Dose 36 UNIT; Start 06/12/16 at 21:00 Guaifenesin (Mucinex) 600 mg BID PO Last administered on 06/18/16 08:52; Admin Dose 600 MG; Start 06/15/16 at 10:00 Zolpidem Tartrate (Ambien) 10 mg HS PRN PO INSOMNIA; Start 06/15/16 at 22:30 Potassium Chloride (Klor-Con 20) 20 meq DAILY PO Last administered on 06/18/16t 08:52; Admin Dose 20 MEQ; Start 06/17/16 at 09:00 Apixaban (Eliquis) 5 mg BID PO ; Start 06/18/16 at 21:00 Assessment/Plan Additional Assessment/Plan IMP: Acute on chronic resp insufficiency CHF Afib COPD Left effusion RECS: 1. Continue diuresis 2. Follow I/O's 3. Minimize FiO2 to SpO2 88-92% LISSETTE ATKINS MD Jun 18, 2016 18:53
[2016-06-18] MEDS: ATORVASTATIN 40 MG TAB PO SCH (22:51)
[2016-06-18] MEDS: APIXABAN 5 MG TABLET PO SCH (22:51)
[2016-06-18] MEDS: INSULIN GLARGINE [LANtus] 3 ML PEN SC SCH (23:01)
[2016-06-19] VITALS (12 sets, daily range): BP systolic 98–142; BP diastolic 55–89; PULSE 81–91; RESP 18–19
[2016-06-19] MEDS: ACCU-CHEK XX SCH (02:54)
[2016-06-19] MEDS: BUMETANIDE 1 MG TAB PO SCH ×2 (06:07→17:21)
[2016-06-19 06:40] LABS: ADD SCAN DIFF NO
[2016-06-19 07:02] LABS: BASOPHILS % 0.3 % (0.0-2.0); EOSINOPHILS # 0.2 10^3/ul (0.0-0.5); EOSINOPHILS % 1.9 % (0.0-7.0); HEMATOCRIT 37.9 % (37.0-47.0); HEMOGLOBIN 11.3 g/dl (12.0-16.0); LYMPHOCYTES # 2.1 10^3/ul (0.8-2.9); LYMPHOCYTES % 18.8 % (15.0-51.0); MEAN CORPUSCULAR HEMOGLOBIN 27.4 pg (29.0-33.0); MEAN CORPUSCULAR HGB CONC 29.8 g/dl (32.0-37.0); MEAN PLATELET VOLUME 9.2 fl (7.4-10.4); MONOCYTE # 0.9 10^3/ul (0.3-0.9); MONOCYTES % 7.7 % (0.0-11.0); NEUTROPHIL # 7.8 10^3/ul (1.6-7.5); NEUTROPHILS % 69.5 % (39.0-77.0); PLATELET COUNT 450 10^3/UL (140-415); RED BLOOD COUNT 4.12 10^6/ul (4.20-5.40); RED CELL DISTRIBUTION WIDTH 18.4 % (11.5-14.5); WHITE BLOOD COUNT 11.2 10^3/ul (4.8-10.8)
[2016-06-19 07:10] LABS: POTASSIUM 4.7 mmol/L (3.5-5.1)
[2016-06-19 07:13] LABS: CREATININE 0.83 mg/dl (0.44-1.00)
[2016-06-19 07:14] LABS: CALCIUM 8.6 mg/dl (8.4-10.2)
[2016-06-19] MEDS: INSULIN ASPART [NOVOLOG] 3 ML PEN SC SCH ×7 (08:58→20:35)
[2016-06-19] MEDS: GUAIFENESIN LA 600 MG TABSR PO SCH ×2 (09:53→20:31)
[2016-06-19] MEDS: CEFEPIME 1GM/50 ML (PMX) 50 ML IVPB SCH ×2 (09:53→20:31)
[2016-06-19] MEDS: SALMETEROL/FLUTICASONE 250/50 INHA INH SCH ×2 (09:53→20:31)
[2016-06-19] MEDS: SPIRONOLACTONE 25 MG TAB PO SCH (09:54)
[2016-06-19] MEDS: POTASSIUM CHLORIDE (SR) 20 MEQ TAB PO SCH (09:54)
[2016-06-19] MEDS: APIXABAN 5 MG TABLET PO SCH ×2 (09:54→20:32)
[2016-06-19] MEDS: DILTIAZEM (CD) 240 MG CAP PO SCH (09:54)
[2016-06-19] MEDS: FAMOTIDINE 20 MG TAB PO SCH ×2 (09:54→20:32)
[2016-06-19] MEDS: METOPROLOL 25 MG TAB PO SCH ×2 (09:54→20:32)
[2016-06-19] MEDS: FERROUS GLUCONATE (EC) 325 MG TAB PO SCH ×2 (09:54→20:31)
--- NOTE | 2016-06-19 10:55 | PN ---
Date/Time of Note Date/Time of Note DATE: 06/19/16 TIME: 10:52 Assessment/Plan VTE Prophylaxis VTE Prophylaxis Intervention: LMWH Lines/Catheters IV [facility]from [facility] [place] [facility] Assessment/Plan Chief Complaint/Hosp Course Assessment and plan 1. Acute on chronic respiratory failure multifactorial. Patient noted with COPD as well as CHF. Continue on bronchodilators. Titrate down O2 as tolerated. Patient on diuretics.improved status post thoracentesis. cont pulmonary regimen. 2. Large subsided pleural effusion with underlying atelectasis/consolidation. cont on diuretics. Improved status post thoracentesis. Follow-up chest radiograph per pulmonary 3. Healthcare associated pneumonia. Continue antibiotics. 4. Pulmonary hypertension. Patient noted with PASP of 45 mmHg. continue on on supplemental oxygen. 5. Type 2 diabetes. A1c 8.8. Is on insulin regimen. We'll adjust as needed. stable 6. Essential hypertension. Continue on anti-hypertensives and adjust as needed. stable 7. COPD. Patient oxygen dependent. Titrate down on O2 as tolerated. Continue on bronchodilators therapy Disposition and plan: Awaiting physical therapy evaluation. Continue with O2. Follow-up with pulmonary recommendations. Continue diuresis. Discharged in medically stable and cleared by consultants Discussed plan of care with Dr. Adams Problems: Subjective 24 Hr Interval Summary Free Text/Dictation Still states she has some shortness of breath but little better. Does still have moderate dyspnea on exertion Exam/Review of Systems Vital Signs Vitals Vital Signs Date Time Temp Pulse Resp B/P Pulse Ox O2 Delivery O2 Flow Rate FiO2 06/19/16 08:24 89 06/19/16 07:52 98.3 18 112/66 94 06/18/16 20:00 Nasal Cannula 4.0 06/18/16 13:36 36 Intake and Output 06/18/16 06/18/16 06/19/16 14:59 22:59 06:59 Intake Total 1500 ml 970 ml Output Total 3000 ml 500 ml Balance -1500 ml 470 ml Exam General: No apparent distress noted at this time Eyes: pupils equal round, anicteric Neck: no apparent jvd seen today Cardiac: Regular rate still Pulmonary: No adventitious lung sounds but diminished at bases GI: Soft nontender Extremities: still with edema ble unchanged Skin: Clean dry and intact Neurologic: Alert to person place and time and situation Results Result Diagram: 06/19/16 0617 06/19/16 0613 Results 24 hrs Laboratory Tests Test 06/18/16 11:15 06/18/16 17:40 06/18/16 21:50 06/19/16 02:11 Bedside Glucose 152 304 H 285 H 137 Test 06/19/16 06:13 06/19/16 06:17 06/19/16 07:58 Sodium Level 134 L Potassium Level 4.7 Chloride Level 87 L Carbon Dioxide Level 37 H Anion Gap 15 Blood Urea Nitrogen 21 H Creatinine 0.83 Glucose Level 152 Calcium Level 8.6 White Blood Count 11.2 H Red Blood Count 4.12 L Hemoglobin 11.3 L Hematocrit 37.9 Mean Corpuscular Volume 92.0 Mean Corpuscular Hemoglobin 27.4 L Mean Corpuscular Hemoglobin Concent 29.8 L Red Cell Distribution Width 18.4 H Platelet Count 450 H Mean Platelet Volume 9.2 Neutrophils % 69.5 Lymphocytes % 18.8 Monocytes % 7.7 Eosinophils % 1.9 Basophils % 0.3 Nucleated Red Blood Cells % 0.0 Neutrophils # 7.8 H Lymphocytes # 2.1 Monocytes # 0.9 Eosinophils # 0.2 Basophils # 0.0 Nucleated Red Blood Cells # 0.0 Bedside Glucose 167 Medications Medications Current Medications Lorazepam (Ativan) 0.5 mg Q6H PRN IV ANXIETY Last administered on 06/14/16 21: 23; Admin Dose 0.5 MG; Start 06/11/16 at 06:00 Ondansetron HCl (Zofran Tab) 4 mg Q6H PRN PO NAUSEA AND/OR VOMITING; Start at 06:00 Metoclopramide HCl (Reglan) 10 mg Q6H PRN IV NAUSEA AND/OR VOMITING; Start at 06:00 Nitroglycerin (Nitroglycerin (Sl Tab) 0.4 Mg) 1 tab Q5M PRN SL CHEST PAIN; Start 06/11/16 at 06:00 Acetaminophen (Tylenol Tab) 650 mg Q6H PRN PO PAIN LEVEL 1-3 OR FEVER Last administered on 06/16/16 08:44; Admin Dose 650 MG; Start 06/11/16 at 06:00 Acetaminophen/ Hydrocodone Bitart ([place] (5/325)) 1 tab Q6H PRN PO PAIN LEVEL 4 -6; Start 06/11/16 at 06:00 Morphine Sulfate (morphine) 2 mg Q4H PRN IV PAIN LEVEL 7-10; Start 06/11/16 at 06:00 Famotidine (Pepcid) 20 mg Q12 PO Last administered on 06/19/16 09:54; Admin Dose 20 MG; Start 06/11/16 at 09:00 Atorvastatin Calcium (Lipitor) 40 mg HS PO Last administered on 06/18/16 22:51 ; Admin Dose 40 MG; Start 06/11/16 at 21:00 Digoxin (Digoxin) 0.25 mg DAILY@13 PO Last administered on 06/18/16 12:57; Admin Dose 0.25 MG; Start 06/11/16 at 13:00 Diltiazem HCl (Cardizem Cd) 240 mg DAILY PO Last administered on 06/19/16 09:54 ; Admin Dose 240 MG; Start 06/11/16 at 09:00 Metoprolol Tartrate (Lopressor) 25 mg BID PO Last administered on 06/19/16 09: 54; Admin Dose 25 MG; Start 06/11/16 at 09:00 Salmeterol Xinafoate/ Fluticasone (Advair 250/50 Diskus) 1 inh BID INH Last administered on 06/19/16 09:53; Admin Dose 1 INH; Start 06/11/16 at 09:00 Spironolactone (Aldactone) 25 mg DAILY PO Last administered on 06/19/16 09:54; Admin Dose 25 MG; Start 06/11/16 at 09:00 Miscellaneous Information 1 ea NOTE XX ; Start 06/11/16 at 08:00 Glucose (Glutose) 15 gm Q15M PRN PO DECREASED GLUCOSE; Start 06/11/16 at 08:00 Glucose (Glutose) 22.5 gm Q15M PRN PO DECREASED GLUCOSE; Start 06/11/16 at 08: 00 Dextrose (D50w Syringe) 25 ml Q15M PRN IV DECREASED GLUCOSE; Start 06/11/16 at 08:00 Dextrose (D50w Syringe) 50 ml Q15M PRN IV DECREASED GLUCOSE; Start 06/11/16 at 08:00 Glucagon (Glucagen) 1 mg Q15M PRN IM DECREASED GLUCOSE; Start 06/11/16 at 08:00 Glucose (Glutose) 15 gm Q15M PRN BUCCAL DECREASED GLUCOSE; Start 06/11/16 at 08 :00 Diagnostic Test (Pha) 1 ea 1 ea 02 XX Last administered on 06/19/16 02:54; Admin Dose 1 EA; Start 06/12/16 at 02:00 Cefepime HCl 50 ml @ 100 mls/hr Q12 IVPB Last administered on 06/19/16 09:53; Admin Dose 100 MLS/HR; Start 06/11/16 at 21:00 Levofloxacin/ Dextrose (Levaquin 500mg/ D5W 100 ml (Pmx)) 100 ml @ 100 mls/hr Q24H IVPB Last administered on 06/18/16 17:42; Admin Dose 100 MLS/HR; Start at 16:30 Ferrous Gluconate (Fergon) 325 mg BID PO Last administered on 06/19/16 09:54; Admin Dose 325 MG; Start 06/12/16 at 21:00 Insulin Glargine (Lantus) 36 unit QHS SC Last administered on 06/18/16 23:01; Admin Dose 36 UNIT; Start 06/12/16 at 21:00 Guaifenesin (Mucinex) 600 mg BID PO Last administered on 06/19/16 09:53; Admin Dose 600 MG; Start 06/15/16 at 10:00 Zolpidem Tartrate (Ambien) 10 mg HS PRN PO INSOMNIA; Start 06/15/16 at 22:30 Potassium Chloride (Klor-Con 20) 20 meq DAILY PO Last administered on 06/19/16 09:54; Admin Dose 20 MEQ; Start 06/17/16 at 09:00 Apixaban (Eliquis) 5 mg BID PO Last administered on 06/19/16 09:54; Admin Dose 5 MG; Start 06/18/16 at 21:00 EDUARDO GOLDSTEIN Jun 19, 2016 10:55
[2016-06-19] MEDS: DIGOXIN 0.25 MG TAB PO SCH (13:28)
--- NOTE | 2016-06-19 16:31 | CONS ---
Date/Time of Note Date/Time of Note DATE: 06/19/16 TIME: 16:27 Consult Date/Type/Reason Admit Date/Time Jun 11, 2016 at 14:17 Initial Consult Date 06/12/16 Type of Consultation: Pulm Subjective Overall better. No events. Objective Vital Signs Date Time Temp Pulse Resp B/P Pulse Ox O2 Delivery O2 Flow Rate FiO2 06/19/16 16:08 88 06/19/16 15:48 97.4 19 142/89 95 06/19/16 08:00 Nasal Cannula 4.0 06/18/16 13:36 36 Intake and Output 06/18/16 06/18/16 06/19/16 15:00 23:00 07:00 Intake Total 1500 ml 970 ml Output Total 3000 ml 500 ml Balance -1500 ml 470 ml Exam HEENT: Neck supple; no JVD; no LAD CVS: RRR, S1 and S2 CHEST: Decreased BS left base ABD: Soft, NT, + BS EXT: No c/c/e Results/Medications Result Diagram: 06/19/1617 06/19/16 0613 Results 24 hrs Laboratory Tests Test 06/18/16 17:40 06/18/16 21:50 06/19/16 02:11 06/19/16 06:13 Bedside Glucose 304 H 285 H 137 Sodium Level 134 L Potassium Level 4.7 Chloride Level 87 L Carbon Dioxide Level 37 H Anion Gap 15 Blood Urea Nitrogen 21 H Creatinine 0.83 Glucose Level 152 Calcium Level 8.6 Test 06/19/16 06:17 06/19/16 07:58 06/19/16 11:12 White Blood Count 11.2 H Red Blood Count 4.12 L Hemoglobin 11.3 L Hematocrit 37.9 Mean Corpuscular Volume 92.0 Mean Corpuscular Hemoglobin 27.4 L Mean Corpuscular Hemoglobin Concent 29.8 L Red Cell Distribution Width 18.4 H Platelet Count 450 H Mean Platelet Volume 9.2 Neutrophils % 69.5 Lymphocytes % 18.8 Monocytes % 7.7 Eosinophils % 1.9 Basophils % 0.3 Nucleated Red Blood Cells % 0.0 Neutrophils # 7.8 H Lymphocytes # 2.1 Monocytes # 0.9 Eosinophils # 0.2 Basophils # 0.0 Nucleated Red Blood Cells # 0.0 Bedside Glucose 167 187 Medications Current Medications Lorazepam (Ativan) 0.5 mg Q6H PRN IV ANXIETY Last administered on 06/14/16 21: 23; Admin Dose 0.5 MG; Start 06/11/16 at 06:00 Ondansetron HCl (Zofran Tab) 4 mg Q6H PRN PO NAUSEA AND/OR VOMITING; Start at 06:00 Metoclopramide HCl (Reglan) 10 mg Q6H PRN IV NAUSEA AND/OR VOMITING; Start at 06:00 Nitroglycerin (Nitroglycerin (Sl Tab) 0.4 Mg) 1 tab Q5M PRN SL CHEST PAIN; Start 06/11/16 at 06:00 Acetaminophen (Tylenol Tab) 650 mg Q6H PRN PO PAIN LEVEL 1-3 OR FEVER Last administered on 06/16/16 08:44; Admin Dose 650 MG; Start 06/11/16 at 06:00 Acetaminophen/ Hydrocodone Bitart ([place] (5/325)) 1 tab Q6H PRN PO PAIN LEVEL 4 -6; Start 06/11/16 at 06:00 Morphine Sulfate (morphine) 2 mg Q4H PRN IV PAIN LEVEL 7-10; Start 06/11/16 at 06:00 Famotidine (Pepcid) 20 mg Q12 PO Last administered on 06/19/16 09:54; Admin Dose 20 MG; Start 06/11/16 at 09:00 Atorvastatin Calcium (Lipitor) 40 mg HS PO Last administered on 06/18/16 22:51 ; Admin Dose 40 MG; Start 06/11/16 at 21:00 Digoxin (Digoxin) 0.25 mg DAILY@13 PO Last administered on 06/19/16 13:28; Admin Dose 0.25 MG; Start 06/11/16 at 13:00 Diltiazem HCl (Cardizem Cd) 240 mg DAILY PO Last administered on 06/19/16 09:54 ; Admin Dose 240 MG; Start 06/11/16 at 09:00 Metoprolol Tartrate (Lopressor) 25 mg BID PO Last administered on 06/19/16 09: 54; Admin Dose 25 MG; Start 06/11/16 at 09:00 Salmeterol Xinafoate/ Fluticasone (Advair 250/50 Diskus) 1 inh BID INH Last administered on 06/19/16 09:53; Admin Dose 1 INH; Start 06/11/16 at 09:00 Spironolactone (Aldactone) 25 mg DAILY PO Last administered on 06/19/16 09:54; Admin Dose 25 MG; Start 06/11/16 at 09:00 Miscellaneous Information 1 ea NOTE XX ; Start 06/11/16 at 08:00 Glucose (Glutose) 15 gm Q15M PRN PO DECREASED GLUCOSE; Start 06/11/16 at 08:00 Glucose (Glutose) 22.5 gm Q15M PRN PO DECREASED GLUCOSE; Start 06/11/16 at 08: 00 Dextrose (D50w Syringe) 25 ml Q15M PRN IV DECREASED GLUCOSE; Start 06/11/16 at 08:00 Dextrose (D50w Syringe) 50 ml Q15M PRN IV DECREASED GLUCOSE; Start 06/11/16 at 08:00 Glucagon (Glucagen) 1 mg Q15M PRN IM DECREASED GLUCOSE; Start 06/11/16 at 08:00 Glucose (Glutose) 15 gm Q15M PRN BUCCAL DECREASED GLUCOSE; Start 06/11/16 at 08 :00 Diagnostic Test (Pha) 1 ea 1 ea 02 XX Last administered on 06/19/16 02:54; Admin Dose 1 EA; Start 06/12/16 at 02:00 Cefepime HCl 50 ml @ 100 mls/hr Q12 IVPB Last administered on 06/19/16 09:53; Admin Dose 100 MLS/HR; Start 06/11/16 at 21:00 Levofloxacin/ Dextrose (Levaquin 500mg/ D5W 100 ml (Pmx)) 100 ml @ 100 mls/hr Q24H IVPB Last administered on 06/18/16 17:42; Admin Dose 100 MLS/HR; Start at 16:30 Ferrous Gluconate (Fergon) 325 mg BID PO Last administered on 06/19/16 09:54; Admin Dose 325 MG; Start 06/12/16 at 21:00 Insulin Glargine (Lantus) 36 unit QHS SC Last administered on 06/18/16 23:01; Admin Dose 36 UNIT; Start 06/12/16 at 21:00 Guaifenesin (Mucinex) 600 mg BID PO Last administered on 06/19/16 09:53; Admin Dose 600 MG; Start 06/15/16 at 10:00 Zolpidem Tartrate (Ambien) 10 mg HS PRN PO INSOMNIA; Start 06/15/16 at 22:30 Potassium Chloride (Klor-Con 20) 20 meq DAILY PO Last administered on 06/19/16 09:54; Admin Dose 20 MEQ; Start 06/17/16 at 09:00 Apixaban (Eliquis) 5 mg BID PO Last administered on 06/19/16 09:54; Admin Dose 5 MG; Start 06/18/16 at 21:00 Assessment/Plan Additional Assessment/Plan IMP: Acute on chronic resp insufficiency CHF Afib COPD Left effusion RECS: 1. Continue diuresis 2. Obtain ABG 3. Minimize FiO2 to SpO2 88-92% LISSETTE ATKINS MD Jun 19, 2016 16:31
[2016-06-19] MEDS: LEVOFLOXACIN 500MG/D5W (PMX) 100 ML IVPB SCH (16:39)
--- NOTE | 2016-06-19 19:55 | CONS ---
Date/Time of Note Date/Time of Note DATE: 06/19/16 TIME: 19:54 Assessment/Plan Assessment/Plan Chief Complaint/Hosp Course Acute on chronic hypoxic respiratory failure - likely multifactorial including CHF, pleural effusion and pneumonia Acute on chronic diastolic heart failure - echocardiogram 11/14/2015 showed LVEF 55% Chronic atrial fibrillation - HR overall controlled currently. On Eliquis at home Pneumonia/pleural effusion - status post thoracentesis 06/16/2016 Chronic obstructive pulmonary disease - on 4 liters home oxygen at baseline Hypertension Dyslipidemia Diabetes mellitus -continue Bumex 1mg PO BID -continue spironolactone 25mg daily -continue metoprolol 25mg BID and diltiazem 240mg daily -continue digoxin 250mcg -continue atorvastatin 40mg daily -continue Eliquis 5mg BID Problems: Consultation Date/Type/Reason Admit Date/Time Jun 11, 2016 at 14:17 Initial Consult Date 06/12/16 Type of Consultation: Cardiology 24 HR Interval Summary Free Text/Dictation Overall improved. Breathing improved. Ambulating in room. Detailed Summary Additional Comments 14 point review of systems without changes. Exam/Review of Systems Vital Signs Vitals Vital Signs Date Time Temp Pulse Resp B/P Pulse Ox O2 Delivery O2 Flow Rate FiO2 06/19/16 19:13 98.0 71 18 110/77 93 06/19/16 08:00 Nasal Cannula 4.0 06/18/16 13:36 36 Intake and Output 06/18/16 06/18/16 06/19/16 15:00 23:00 07:00 Intake Total 1500 ml 970 ml Output Total 3000 ml 500 ml Balance -1500 ml 470 ml Exam Constitutional: alert, oriented Psych: no complaints Head: atraumatic, normocephalic Neck: jvd (10cm) Respiratory: crackles/rales, diminished breath sounds (on left), No clear to auscultation Cardiovascular: edema, No regular rate and rhythm (IRIR), No systolic murmur Gastrointestinal: non-tender, soft 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: nl mental status, nl speech Skin: No rash or lesions Results Result Diagram: 06/19/1617 06/19/16612 Results 24 hrs Laboratory Tests Test 06/18/16 21:50 06/19/16 02:11 06/19/16 06:13 06/19/16 06:17 Bedside Glucose 285 H 137 Sodium Level 134 L Potassium Level 4.7 Chloride Level 87 L Carbon Dioxide Level 37 H Anion Gap 15 Blood Urea Nitrogen 21 H Creatinine 0.83 Glucose Level 152 Calcium Level 8.6 White Blood Count 11.2 H Red Blood Count 4.12 L Hemoglobin 11.3 L Hematocrit 37.9 Mean Corpuscular Volume 92.0 Mean Corpuscular Hemoglobin 27.4 L Mean Corpuscular Hemoglobin Concent 29.8 L Red Cell Distribution Width 18.4 H Platelet Count 450 H Mean Platelet Volume 9.2 Neutrophils % 69.5 Lymphocytes % 18.8 Monocytes % 7.7 Eosinophils % 1.9 Basophils % 0.3 Nucleated Red Blood Cells % 0.0 Neutrophils # 7.8 H Lymphocytes # 2.1 Monocytes # 0.9 Eosinophils # 0.2 Basophils # 0.0 Nucleated Red Blood Cells # 0.0 Test 06/19/16 07:58 06/19/16 11:12 06/19/16 17:11 Bedside Glucose 167 187 310 H Medications Medications Current Medications Lorazepam (Ativan) 0.5 mg Q6H PRN IV ANXIETY Last administered on 06/14/16 21: 23; Admin Dose 0.5 MG; Start 06/11/16 at 06:00 Ondansetron HCl (Zofran Tab) 4 mg Q6H PRN PO NAUSEA AND/OR VOMITING; Start at 06:00 Metoclopramide HCl (Reglan) 10 mg Q6H PRN IV NAUSEA AND/OR VOMITING; Start at 06:00 Nitroglycerin (Nitroglycerin (Sl Tab) 0.4 Mg) 1 tab Q5M PRN SL CHEST PAIN; Start 06/11/16 at 06:00 Acetaminophen (Tylenol Tab) 650 mg Q6H PRN PO PAIN LEVEL 1-3 OR FEVER Last administered on 06/16/16 08:44; Admin Dose 650 MG; Start 06/11/16 at 06:00 Acetaminophen/ Hydrocodone Bitart ([place] (5/325)) 1 tab Q6H PRN PO PAIN LEVEL 4 -6; Start 06/11/16 at 06:00 Morphine Sulfate (morphine) 2 mg Q4H PRN IV PAIN LEVEL 7-10; Start 06/11/16 at 06:00 Famotidine (Pepcid) 20 mg Q12 PO Last administered on 06/19/16 09:54; Admin Dose 20 MG; Start 06/11/16 at 09:00 Atorvastatin Calcium (Lipitor) 40 mg HS PO Last administered on 06/18/16 22:51 ; Admin Dose 40 MG; Start 06/11/16 at 21:00 Digoxin (Digoxin) 0.25 mg DAILY@13 PO Last administered on 06/19/16 13:28; Admin Dose 0.25 MG; Start 06/11/16 at 13:00 Diltiazem HCl (Cardizem Cd) 240 mg DAILY PO Last administered on 06/19/16 09:54 ; Admin Dose 240 MG; Start 06/11/16 at 09:00 Metoprolol Tartrate (Lopressor) 25 mg BID PO Last administered on 06/19/16 09: 54; Admin Dose 25 MG; Start 06/11/16 at 09:00 Salmeterol Xinafoate/ Fluticasone (Advair 250/50 Diskus) 1 inh BID INH Last administered on 06/19/16 09:53; Admin Dose 1 INH; Start 06/11/16 at 09:00 Spironolactone (Aldactone) 25 mg DAILY PO Last administered on 06/19/16 09:54; Admin Dose 25 MG; Start 06/11/16 at 09:00 Miscellaneous Information 1 ea NOTE XX ; Start 06/11/16 at 08:00 Glucose (Glutose) 15 gm Q15M PRN PO DECREASED GLUCOSE; Start 06/11/16 at 08:00 Glucose (Glutose) 22.5 gm Q15M PRN PO DECREASED GLUCOSE; Start 06/11/16 at 08: 00 Dextrose (D50w Syringe) 25 ml Q15M PRN IV DECREASED GLUCOSE; Start 06/11/16 at 08:00 Dextrose (D50w Syringe) 50 ml Q15M PRN IV DECREASED GLUCOSE; Start 06/11/16 at 08:00 Glucagon (Glucagen) 1 mg Q15M PRN IM DECREASED GLUCOSE; Start 06/11/16 at 08:00 Glucose (Glutose) 15 gm Q15M PRN BUCCAL DECREASED GLUCOSE; Start 06/11/16 at 08 :00 Diagnostic Test (Pha) 1 ea 1 ea 02 XX Last administered on 06/19/16 02:54; Admin Dose 1 EA; Start 06/12/16 at 02:00 Cefepime HCl 50 ml @ 100 mls/hr Q12 IVPB Last administered on 06/19/16 09:53; Admin Dose 100 MLS/HR; Start 06/11/16 at 21:00 Levofloxacin/ Dextrose (Levaquin 500mg/ D5W 100 ml (Pmx)) 100 ml @ 100 mls/hr Q24H IVPB Last administered on 06/19/16 16:39; Admin Dose 100 MLS/HR; Start at 16:30 Ferrous Gluconate (Fergon) 325 mg BID PO Last administered on 06/19/16 09:54; Admin Dose 325 MG; Start 06/12/16 at 21:00 Insulin Glargine (Lantus) 36 unit QHS SC Last administered on 06/18/16 23:01; Admin Dose 36 UNIT; Start 06/12/16 at 21:00 Guaifenesin (Mucinex) 600 mg BID PO Last administered on 06/19/16 09:53; Admin Dose 600 MG; Start 06/15/16 at 10:00 Zolpidem Tartrate (Ambien) 10 mg HS PRN PO INSOMNIA; Start 06/15/16 at 22:30 Potassium Chloride (Klor-Con 20) 20 meq DAILY PO Last administered on 06/19/16 09:54; Admin Dose 20 MEQ; Start 06/17/16 at 09:00 Apixaban (Eliquis) 5 mg BID PO Last administered on 06/19/16 09:54; Admin Dose 5 MG; Start 06/18/16 at 21:00 CAROLA WHALEY MD Jun 19, 2016 19:55
[2016-06-19] MEDS: ATORVASTATIN 40 MG TAB PO SCH (20:31)
[2016-06-19] MEDS: INSULIN GLARGINE [LANtus] 3 ML PEN SC SCH (20:35)
[2016-06-20] VITALS (11 sets, daily range): BP systolic 96–116; BP diastolic 53–79; PULSE 79–98; RESP 18–20
[2016-06-20] MEDS: ACCU-CHEK XX SCH (02:15)
[2016-06-20] MEDS: BUMETANIDE 1 MG TAB PO SCH ×2 (05:56→17:26)
[2016-06-20 07:08] LABS: ADD SCAN DIFF NO
[2016-06-20 07:14] LABS: BASOPHIL # 0.1 10^3/ul (0.0-0.1); BASOPHILS % 0.4 % (0.0-2.0); EOSINOPHILS # 0.2 10^3/ul (0.0-0.5); EOSINOPHILS % 1.7 % (0.0-7.0); HEMATOCRIT 39.2 % (37.0-47.0); HEMOGLOBIN 11.8 g/dl (12.0-16.0); LYMPHOCYTES # 2.1 10^3/ul (0.8-2.9); LYMPHOCYTES % 18.3 % (15.0-51.0); MEAN CORPUSCULAR HEMOGLOBIN 27.6 pg (29.0-33.0); MEAN CORPUSCULAR HGB CONC 30.1 g/dl (32.0-37.0); MEAN CORPUSCULAR VOLUME 91.6 fl (82.0-101.0); MONOCYTE # 0.9 10^3/ul (0.3-0.9); MONOCYTES % 7.6 % (0.0-11.0); NEUTROPHIL # 7.9 10^3/ul (1.6-7.5); PLATELET COUNT 425 10^3/UL (140-415); RED BLOOD COUNT 4.28 10^6/ul (4.20-5.40); RED CELL DISTRIBUTION WIDTH 18.5 % (11.5-14.5); WHITE BLOOD COUNT 11.4 10^3/ul (4.8-10.8)
[2016-06-20 07:38] LABS: CREATININE 0.88 mg/dl (0.44-1.00)
[2016-06-20] MEDS: SPIRONOLACTONE 25 MG TAB PO SCH (08:14)
[2016-06-20] MEDS: DILTIAZEM (CD) 240 MG CAP PO SCH (08:15)
[2016-06-20] MEDS: FERROUS GLUCONATE (EC) 325 MG TAB PO SCH ×2 (08:15→21:18)
[2016-06-20] MEDS: FAMOTIDINE 20 MG TAB PO SCH ×2 (08:15→21:18)
[2016-06-20] MEDS: APIXABAN 5 MG TABLET PO SCH ×2 (08:15→21:18)
[2016-06-20] MEDS: GUAIFENESIN LA 600 MG TABSR PO SCH ×2 (08:15→21:18)
[2016-06-20] MEDS: POTASSIUM CHLORIDE (SR) 20 MEQ TAB PO SCH (08:16)
[2016-06-20] MEDS: SALMETEROL/FLUTICASONE 250/50 INHA INH SCH ×2 (08:17→21:18)
[2016-06-20] MEDS: INSULIN ASPART [NOVOLOG] 3 ML PEN SC SCH ×7 (08:20→21:25)
[2016-06-20] MEDS: CEFEPIME 1GM/50 ML (PMX) 50 ML IVPB SCH ×2 (08:26→21:18)
[2016-06-20] MEDS: METOPROLOL 25 MG TAB PO SCH ×2 (09:00→21:19)
[2016-06-20 09:02] LABS: CALCIUM 9.3 mg/dl (8.4-10.2)
--- NOTE | 2016-06-20 10:44 | PN ---
Date/Time of Note Date/Time of Note DATE: 06/20/16 TIME: 10:43 Assessment/Plan VTE Prophylaxis VTE Prophylaxis Intervention: other (Factor Xa inhibitors.) Lines/Catheters IV [facility]from [facility] Assessment/Plan Chief Complaint/Hosp Course 1. Acute on chronic respiratory failure, hypoxic and hypercapnic, most probably secondary to chronic obstructive pulmonary disease along with a combination of congestive heart failure exacerbation (diastolic dysfunction). Continue inhaled bronchodilators. Continue supplemental oxygen. Being followed by cardiology and pulmonary. 2. Large left-sided pleural effusion with underlying atelectasis/ consolidation. The patient is on antibiotics. S/P ultrasound-guided thoracentesis of the left side on 06/16/2016. 3. Healthcare-associated pneumonia. Continue antibiotics. No evidence of any septic shock. 4. Acute on chronic diastolic heart failure. Continue cardiac medications. Cardiology following the patient. 5. Atrial fibrillation. Rate controlled. Continue rate control. Cardiology following the patient. Therapeutic anticoagulation will be deferred to cardiology. 6. Pulmonary hypertension. PA pressure of 45 mmHg as per 2D echocardiogram on 11/16/2015. Continue supplemental oxygen. 7. Type 2 diabetes mellitus. Hemoglobin A1c 8.8. Continue sliding scale insulin along with Lantus insulin and add premeal insulin. 8. Dyslipidemia. Continue statins. 9. Essential hypertension. Continue antihypertensives. 10. Chronic obstructive pulmonary disease with chronic hypoxia, dependent on home oxygen. Continue maintenance inhalers. 11. Hypochromic anemia. Monitor the H and H closely. Iron panel showing low iron levels. Continue iron supplements. 12. Fluid, electrolytes, and nutrition. Continue carbohydrate controlled low cholesterol diet. 13. Deep venous thrombosis prophylaxis. Eliquis. 14. Gastrointestinal prophylaxis. Histamine 2 receptor blockers. PLAN: Continue current care. Await clearance form consultants before discharge. The case discussed with Dr. Cortés. Problems: Subjective 24 Hr Interval Summary Free Text/Dictation "Feeling better." Exam/Review of Systems Vital Signs Vitals Vital Signs Date Time Temp Pulse Resp B/P Pulse Ox O2 Delivery O2 Flow Rate FiO2 06/20/16 09:00 84 06/20/16 07:32 98.0 20 96/56 93 06/20/16 03:41 4.0 06/19/16 20:00 Nasal Cannula 06/18/16 13:36 36 Intake and Output 06/19/16 06/19/16 06/20/16 15:00 23:00 07:00 Intake Total 1100 ml 800 ml Output Total 1400 ml 3500 ml Balance -300 ml -2700 ml Exam GENERAL: This is a morbidly obese 65-year-old female patient sitting in a chair in no apparent distress. HEENT: Head normocephalic and atraumatic. Eyes: Anicteric sclerae. Conjunctivae clear. Nasal septum is midline. Oral mucosa is moist. NECK: Obese. Supple. RESPIRATORY: Bilaterally diminished breath sounds. Use of accessory muscles for respiration. Bilateral fine rales. CARDIOVASCULAR: S1, S2 heard. Irregularly irregular rhythm. ABDOMEN: Soft and nontender. Bowel sounds positive in all 4 quadrants. GENITOURINARY: Deferred. EXTREMITIES: No cyanosis. Bilateral lower extremity 2+ pitting edema. Peripheral pulses palpable. NEUROLOGIC: Cranial nerves II through XII are grossly intact. The patient is awake, alert, and oriented. Results Result Diagram: 06/20/16 0643 06/20/16 0643 Results 24 hrs Laboratory Tests Test 06/19/16 11:12 06/19/16 17:11 06/19/16 20:29 06/20/16 02:14 Bedside Glucose 187 310 H 189 122 Test 06/20/16 06:43 06/20/16 07:52 White Blood Count 11.4 H Red Blood Count 4.28 Hemoglobin 11.8 L Hematocrit 39.2 Mean Corpuscular Volume 91.6 Mean Corpuscular Hemoglobin 27.6 L Mean Corpuscular Hemoglobin Concent 30.1 L Red Cell Distribution Width 18.5 H Platelet Count 425 H Mean Platelet Volume 9.0 Neutrophils % 69.0 Lymphocytes % 18.3 Monocytes % 7.6 Eosinophils % 1.7 Basophils % 0.4 Nucleated Red Blood Cells % 0.0 Neutrophils # 7.9 H Lymphocytes # 2.1 Monocytes # 0.9 Eosinophils # 0.2 Basophils # 0.1 Nucleated Red Blood Cells # 0.0 Sodium Level 135 Potassium Level Chloride Level 88 L Carbon Dioxide Level 41 *H Anion Gap 11 Blood Urea Nitrogen 20 Creatinine 0.88 Glucose Level 141 Calcium Level 9.3 Bedside Glucose 176 Medications Medications Current Medications Lorazepam (Ativan) 0.5 mg Q6H PRN IV ANXIETY Last administered on 06/14/16t 21: 23; Admin Dose 0.5 MG; Start 06/11/16 at 06:00 Ondansetron HCl (Zofran Tab) 4 mg Q6H PRN PO NAUSEA AND/OR VOMITING; Start at 06:00 Metoclopramide HCl (Reglan) 10 mg Q6H PRN IV NAUSEA AND/OR VOMITING; Start at 06:00 Nitroglycerin (Nitroglycerin (Sl Tab) 0.4 Mg) 1 tab Q5M PRN SL CHEST PAIN; Start 06/11/16 at 06:00 Acetaminophen (Tylenol Tab) 650 mg Q6H PRN PO PAIN LEVEL 1-3 OR FEVER Last administered on 06/16/16 08:44; Admin Dose 650 MG; Start 06/11/16 at 06:00 Acetaminophen/ Hydrocodone Bitart ([place] (5/325)) 1 tab Q6H PRN PO PAIN LEVEL 4 -6; Start 06/11/16 at 06:00 Morphine Sulfate (morphine) 2 mg Q4H PRN IV PAIN LEVEL 7-10; Start 06/11/16 at 06:00 Famotidine (Pepcid) 20 mg Q12 PO Last administered on 06/20/16 08:15; Admin Dose 20 MG; Start 06/11/16 at 09:00 Atorvastatin Calcium (Lipitor) 40 mg HS PO Last administered on 06/19/16 20:31 ; Admin Dose 40 MG; Start 06/11/16 at 21:00 Digoxin (Digoxin) 0.25 mg DAILY@13 PO Last administered on 06/19/16 13:28; Admin Dose 0.25 MG; Start 06/11/16 at 13:00 Diltiazem HCl (Cardizem Cd) 240 mg DAILY PO Last administered on 06/20/16 08:15 ; Admin Dose 240 MG; Start 06/11/16 at 09:00 Metoprolol Tartrate (Lopressor) 25 mg BID PO Last administered on 06/19/16 20: 32; Admin Dose 25 MG; Start 06/11/16 at 09:00 Salmeterol Xinafoate/ Fluticasone (Advair 250/50 Diskus) 1 inh BID INH Last administered on 06/20/16 08:17; Admin Dose 1 INH; Start 06/11/16 at 09:00 Spironolactone (Aldactone) 25 mg DAILY PO Last administered on 06/20/16 08:14; Admin Dose 25 MG; Start 06/11/16 at 09:00 Miscellaneous Information 1 ea NOTE XX ; Start 06/11/16 at 08:00 Glucose (Glutose) 15 gm Q15M PRN PO DECREASED GLUCOSE; Start 06/11/16 at 08:00 Glucose (Glutose) 22.5 gm Q15M PRN PO DECREASED GLUCOSE; Start 06/11/16 at 08: 00 Dextrose (D50w Syringe) 25 ml Q15M PRN IV DECREASED GLUCOSE; Start 06/11/16 at 08:00 Dextrose (D50w Syringe) 50 ml Q15M PRN IV DECREASED GLUCOSE; Start 06/11/16 at 08:00 Glucagon (Glucagen) 1 mg Q15M PRN IM DECREASED GLUCOSE; Start 06/11/16 at 08:00 Glucose (Glutose) 15 gm Q15M PRN BUCCAL DECREASED GLUCOSE; Start 06/11/16 at 08 :00 Diagnostic Test (Pha) 1 ea 1 ea 02 XX Last administered on 06/20/16 02:15; Admin Dose 1 EA; Start 06/12/16 at 02:00 Cefepime HCl 50 ml @ 100 mls/hr Q12 IVPB Last administered on 06/20/16 08:26; Admin Dose 100 MLS/HR; Start 06/11/16 at 21:00 Levofloxacin/ Dextrose (Levaquin 500mg/ D5W 100 ml (Pmx)) 100 ml @ 100 mls/hr Q24H IVPB Last administered on 06/19/16 16:39; Admin Dose 100 MLS/HR; Start at 16:30 Ferrous Gluconate (Fergon) 325 mg BID PO Last administered on 06/20/16 08:15; Admin Dose 325 MG; Start 06/12/16 at 21:00 Insulin Glargine (Lantus) 36 unit QHS SC Last administered on 06/19/16 20:35; Admin Dose 36 UNIT; Start 06/12/16 at 21:00 Guaifenesin (Mucinex) 600 mg BID PO Last administered on 06/20/16 08:15; Admin Dose 600 MG; Start 06/15/16 at 10:00 Zolpidem Tartrate (Ambien) 10 mg HS PRN PO INSOMNIA; Start 06/15/16 at 22:30 Potassium Chloride (Klor-Con 20) 20 meq DAILY PO Last administered on 06/20/16 08:16; Admin Dose 20 MEQ; Start 06/17/16 at 09:00 Apixaban (Eliquis) 5 mg BID PO Last administered on 06/20/16 08:15; Admin Dose 5 MG; Start 06/18/16 at 21:00 KELLY LANDERS NP Jun 20, 2016 10:44
[2016-06-20] MEDS: DIGOXIN 0.25 MG TAB PO SCH (13:05)
--- NOTE | 2016-06-20 13:06 | CONS ---
Date/Time of Note Date/Time of Note DATE: 06/20/16 TIME: 13:04 Assessment/Plan Assessment/Plan Additional Assessment/Plan Assessment recommendations; 1. Patient admitted with severe left lower lobe pneumonia with significant clinical improvement. 2. History of diabetes, hypertension, and atrial fibrillation, all appear fairly stable. Continue current treatment. Obtain a follow-up chest x-ray tomorrow morning. Consultation Date/Type/Reason Admit Date/Time Jun 11, 2016 at 14:17 Initial Consult Date 06/12/16 Type of Consultation: Pulmonary 24 HR Interval Summary Free Text/Dictation Patient condition is stable. Complains of very minimal shortness of breath upon exertion. Denies any chest pain, wheezing, fever, sputum production. General exam; elderly lady, currently in no distress. Awake and alert. Exam/Review of Systems Vital Signs Vitals Vital Signs Date Time Temp Pulse Resp B/P Pulse Ox O2 Delivery O2 Flow Rate FiO2 06/20/16 12:11 98 06/20/16 11:34 97.9 20 114/79 92 06/20/16 08:00 Nasal Cannula 4.0 06/18/16 13:36 36 Intake and Output 06/19/16 06/19/16 06/20/16 15:00 23:00 07:00 Intake Total 1100 ml 800 ml Output Total 1400 ml 3500 ml Balance -300 ml -2700 ml Exam HEENT exam; supple neck, no JVD. No lymphadenopathy. Midline trachea. No thyromegaly. Pharynx is clear. Patient has few missing teeth. Pupils are midsize and reactive to light bilaterally. Chest examination; minimally decreased breath sounds left lower lobe otherwise clear to auscultation. S1-S2 audible, irregular rhythm. Abdomen exam; soft, protuberant. Nontender. Bowel sounds audible. No organomegaly. Extremity exam is; no peripheral edema. Pulses 1+ bilaterally. COMPUT[employer]STRU[employer] examination; no focal deficit. Results Result Diagram: 06/20/16 0643 06/20/16 0643 Results 24 hrs Laboratory Tests Test 06/19/16 17:11 06/19/16 20:29 06/20/16 02:14 06/20/16 06:43 Bedside Glucose 310 H 189 122 White Blood Count 11.4 H Red Blood Count 4.28 Hemoglobin 11.8 L Hematocrit 39.2 Mean Corpuscular Volume 91.6 Mean Corpuscular Hemoglobin 27.6 L Mean Corpuscular Hemoglobin Concent 30.1 L Red Cell Distribution Width 18.5 H Platelet Count 425 H Mean Platelet Volume 9.0 Neutrophils % 69.0 Lymphocytes % 18.3 Monocytes % 7.6 Eosinophils % 1.7 Basophils % 0.4 Nucleated Red Blood Cells % 0.0 Neutrophils # 7.9 H Lymphocytes # 2.1 Monocytes # 0.9 Eosinophils # 0.2 Basophils # 0.1 Nucleated Red Blood Cells # 0.0 Sodium Level 135 Potassium Level Chloride Level 88 L Carbon Dioxide Level 41 *H Anion Gap 11 Blood Urea Nitrogen 20 Creatinine 0.88 Glucose Level 141 Calcium Level 9.3 Test 06/20/16 07:52 06/20/16 11:31 Bedside Glucose 176 176 Medications Medications Current Medications Lorazepam (Ativan) 0.5 mg Q6H PRN IV ANXIETY Last administered on 06/14/16 21: 23; Admin Dose 0.5 MG; Start 06/11/16 at 06:00 Ondansetron HCl (Zofran Tab) 4 mg Q6H PRN PO NAUSEA AND/OR VOMITING; Start at 06:00 Metoclopramide HCl (Reglan) 10 mg Q6H PRN IV NAUSEA AND/OR VOMITING; Start at 06:00 Nitroglycerin (Nitroglycerin (Sl Tab) 0.4 Mg) 1 tab Q5M PRN SL CHEST PAIN; Start 06/11/16 at 06:00 Acetaminophen (Tylenol Tab) 650 mg Q6H PRN PO PAIN LEVEL 1-3 OR FEVER Last administered on 06/16/16 08:44; Admin Dose 650 MG; Start 06/11/16 at 06:00 Acetaminophen/ Hydrocodone Bitart ([place] (5/325)) 1 tab Q6H PRN PO PAIN LEVEL 4 -6; Start 06/11/16 at 06:00 Morphine Sulfate (morphine) 2 mg Q4H PRN IV PAIN LEVEL 7-10; Start 06/11/16 at 06:00 Famotidine (Pepcid) 20 mg Q12 PO Last administered on 06/20/16 08:15; Admin Dose 20 MG; Start 06/11/16 at 09:00 Atorvastatin Calcium (Lipitor) 40 mg HS PO Last administered on 06/19/16 20:31 ; Admin Dose 40 MG; Start 06/11/16 at 21:00 Digoxin (Digoxin) 0.25 mg DAILY@13 PO Last administered on 06/19/16 13:28; Admin Dose 0.25 MG; Start 06/11/16 at 13:00 Diltiazem HCl (Cardizem Cd) 240 mg DAILY PO Last administered on 06/20/16 08:15 ; Admin Dose 240 MG; Start 06/11/16 at 09:00 Metoprolol Tartrate (Lopressor) 25 mg BID PO Last administered on 06/19/16 20: 32; Admin Dose 25 MG; Start 06/11/16 at 09:00 Salmeterol Xinafoate/ Fluticasone (Advair 250/50 Diskus) 1 inh BID INH Last administered on 06/20/16 08:17; Admin Dose 1 INH; Start 06/11/16 at 09:00 Spironolactone (Aldactone) 25 mg DAILY PO Last administered on 06/20/16 08:14; Admin Dose 25 MG; Start 06/11/16 at 09:00 Miscellaneous Information 1 ea NOTE XX ; Start 06/11/16 at 08:00 Glucose (Glutose) 15 gm Q15M PRN PO DECREASED GLUCOSE; Start 06/11/16 at 08:00 Glucose (Glutose) 22.5 gm Q15M PRN PO DECREASED GLUCOSE; Start 06/11/16 at 08: 00 Dextrose (D50w Syringe) 25 ml Q15M PRN IV DECREASED GLUCOSE; Start 06/11/16 at 08:00 Dextrose (D50w Syringe) 50 ml Q15M PRN IV DECREASED GLUCOSE; Start 06/11/16 at 08:00 Glucagon (Glucagen) 1 mg Q15M PRN IM DECREASED GLUCOSE; Start 06/11/16 at 08:00 Glucose (Glutose) 15 gm Q15M PRN BUCCAL DECREASED GLUCOSE; Start 06/11/16 at 08 :00 Diagnostic Test (Pha) 1 ea 1 ea 02 XX Last administered on 06/20/16 02:15; Admin Dose 1 EA; Start 06/12/16 at 02:00 Cefepime HCl 50 ml @ 100 mls/hr Q12 IVPB Last administered on 06/20/16 08:26; Admin Dose 100 MLS/HR; Start 06/11/16 at 21:00 Levofloxacin/ Dextrose (Levaquin 500mg/ D5W 100 ml (Pmx)) 100 ml @ 100 mls/hr Q24H IVPB Last administered on 06/19/16 16:39; Admin Dose 100 MLS/HR; Start at 16:30 Ferrous Gluconate (Fergon) 325 mg BID PO Last administered on 06/20/16 08:15; Admin Dose 325 MG; Start 06/12/16 at 21:00 Insulin Glargine (Lantus) 36 unit QHS SC Last administered on 06/19/16 20:35; Admin Dose 36 UNIT; Start 06/12/16 at 21:00 Guaifenesin (Mucinex) 600 mg BID PO Last administered on 06/20/16 08:15; Admin Dose 600 MG; Start 06/15/16 at 10:00 Zolpidem Tartrate (Ambien) 10 mg HS PRN PO INSOMNIA; Start 06/15/16 at 22:30 Potassium Chloride (Klor-Con 20) 20 meq DAILY PO Last administered on 06/20/16 08:16; Admin Dose 20 MEQ; Start 06/17/16 at 09:00 Apixaban (Eliquis) 5 mg BID PO Last administered on 06/20/16 08:15; Admin Dose 5 MG; Start 06/18/16 at 21:00 MAGALYS CHAPIN Jun 20, 2016 13:06
[2016-06-20] MEDS: LEVOFLOXACIN 500MG/D5W (PMX) 100 ML IVPB SCH (17:14)
--- NOTE | 2016-06-20 17:27 | CONS ---
Date/Time of Note Date/Time of Note DATE: 06/20/16 TIME: 17:26 Assessment/Plan Assessment/Plan Chief Complaint/Hosp Course Acute on chronic hypoxic respiratory failure - likely multifactorial including CHF, pleural effusion and pneumonia Acute on chronic diastolic heart failure - echocardiogram 11/14/2015 showed LVEF 55% Chronic atrial fibrillation - HR overall controlled currently. On Eliquis at home Pneumonia/pleural effusion - status post thoracentesis 06/16/2016 Chronic obstructive pulmonary disease - on 4 liters home oxygen at baseline Hypertension Dyslipidemia Diabetes mellitus -continue Bumex 1mg PO BID -continue spironolactone 25mg daily -continue metoprolol 25mg BID and diltiazem 240mg daily -continue digoxin 250mcg -continue atorvastatin 40mg daily -continue Eliquis 5mg BID Problems: Consultation Date/Type/Reason Admit Date/Time Jun 11, 2016 at 14:17 Initial Consult Date 06/12/16 Type of Consultation: Cardiology 24 HR Interval Summary Free Text/Dictation Breathing comfortably on 4L nasal canula, her baseline. Detailed Summary Additional Comments 14 point review of systems without changes. Exam/Review of Systems Vital Signs Vitals Vital Signs Date Time Temp Pulse Resp B/P Pulse Ox O2 Delivery O2 Flow Rate FiO2 06/20/16 16:24 84 06/20/16 15:55 97.7 20 105/60 92 06/20/16 08:00 Nasal Cannula 4.0 06/18/16 13:36 36 Intake and Output 06/19/16 06/19/16 06/20/16 15:00 23:00 07:00 Intake Total 1100 ml 800 ml Output Total 1400 ml 3500 ml Balance -300 ml -2700 ml Exam Constitutional: alert, oriented Psych: no complaints Head: atraumatic, normocephalic Neck: jvd (10cm) Respiratory: crackles/rales, diminished breath sounds (on left), No clear to auscultation Cardiovascular: edema, No regular rate and rhythm (IRIR), No systolic murmur Gastrointestinal: non-tender, soft 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: nl mental status, nl speech Skin: No rash or lesions Results Result Diagram: 06/20/16 0643 06/20/16 0643 Results 24 hrs Laboratory Tests Test 06/19/16 20:29 06/20/16 02:14 06/20/16 06:43 06/20/16 07:52 Bedside Glucose 189 122 176 White Blood Count 11.4 H Red Blood Count 4.28 Hemoglobin 11.8 L Hematocrit 39.2 Mean Corpuscular Volume 91.6 Mean Corpuscular Hemoglobin 27.6 L Mean Corpuscular Hemoglobin Concent 30.1 L Red Cell Distribution Width 18.5 H Platelet Count 425 H Mean Platelet Volume 9.0 Neutrophils % 69.0 Lymphocytes % 18.3 Monocytes % 7.6 Eosinophils % 1.7 Basophils % 0.4 Nucleated Red Blood Cells % 0.0 Neutrophils # 7.9 H Lymphocytes # 2.1 Monocytes # 0.9 Eosinophils # 0.2 Basophils # 0.1 Nucleated Red Blood Cells # 0.0 Sodium Level 135 Potassium Level Chloride Level 88 L Carbon Dioxide Level 41 *H Anion Gap 11 Blood Urea Nitrogen 20 Creatinine 0.88 Glucose Level 141 Calcium Level 9.3 Test 06/20/16 11:31 06/20/16 17:15 Bedside Glucose 176 162 Medications Medications Current Medications Lorazepam (Ativan) 0.5 mg Q6H PRN IV ANXIETY Last administered on 06/14/16 21: 23; Admin Dose 0.5 MG; Start 06/11/16 at 06:00 Ondansetron HCl (Zofran Tab) 4 mg Q6H PRN PO NAUSEA AND/OR VOMITING; Start at 06:00 Metoclopramide HCl (Reglan) 10 mg Q6H PRN IV NAUSEA AND/OR VOMITING; Start at 06:00 Nitroglycerin (Nitroglycerin (Sl Tab) 0.4 Mg) 1 tab Q5M PRN SL CHEST PAIN; Start 06/11/16 at 06:00 Acetaminophen (Tylenol Tab) 650 mg Q6H PRN PO PAIN LEVEL 1-3 OR FEVER Last administered on 06/16/16 08:44; Admin Dose 650 MG; Start 06/11/16 at 06:00 Acetaminophen/ Hydrocodone Bitart ([place] (5/325)) 1 tab Q6H PRN PO PAIN LEVEL 4 -6; Start 06/11/16 at 06:00 Morphine Sulfate (morphine) 2 mg Q4H PRN IV PAIN LEVEL 7-10; Start 06/11/16 at 06:00 Famotidine (Pepcid) 20 mg Q12 PO Last administered on 06/20/16 08:15; Admin Dose 20 MG; Start 06/11/16 at 09:00 Atorvastatin Calcium (Lipitor) 40 mg HS PO Last administered on 06/19/16 20:31 ; Admin Dose 40 MG; Start 06/11/16 at 21:00 Digoxin (Digoxin) 0.25 mg DAILY@13 PO Last administered on 06/20/16 13:05; Admin Dose 0.25 MG; Start 06/11/16 at 13:00 Diltiazem HCl (Cardizem Cd) 240 mg DAILY PO Last administered on 06/20/16 08:15 ; Admin Dose 240 MG; Start 06/11/16 at 09:00 Metoprolol Tartrate (Lopressor) 25 mg BID PO Last administered on 06/19/16 20: 32; Admin Dose 25 MG; Start 06/11/16 at 09:00 Salmeterol Xinafoate/ Fluticasone (Advair 250/50 Diskus) 1 inh BID INH Last administered on 06/20/16 08:17; Admin Dose 1 INH; Start 06/11/16 at 09:00 Spironolactone (Aldactone) 25 mg DAILY PO Last administered on 06/20/16 08:14; Admin Dose 25 MG; Start 06/11/16 at 09:00 Miscellaneous Information 1 ea NOTE XX ; Start 06/11/16 at 08:00 Glucose (Glutose) 15 gm Q15M PRN PO DECREASED GLUCOSE; Start 06/11/16 at 08:00 Glucose (Glutose) 22.5 gm Q15M PRN PO DECREASED GLUCOSE; Start 06/11/16 at 08: 00 Dextrose (D50w Syringe) 25 ml Q15M PRN IV DECREASED GLUCOSE; Start 06/11/16 at 08:00 Dextrose (D50w Syringe) 50 ml Q15M PRN IV DECREASED GLUCOSE; Start 06/11/16 at 08:00 Glucagon (Glucagen) 1 mg Q15M PRN IM DECREASED GLUCOSE; Start 06/11/16 at 08:00 Glucose (Glutose) 15 gm Q15M PRN BUCCAL DECREASED GLUCOSE; Start 06/11/16 at 08 :00 Diagnostic Test (Pha) 1 ea 1 ea 02 XX Last administered on 06/20/16 02:15; Admin Dose 1 EA; Start 06/12/16 at 02:00 Cefepime HCl 50 ml @ 100 mls/hr Q12 IVPB Last administered on 06/20/16 08:26; Admin Dose 100 MLS/HR; Start 06/11/16 at 21:00 Levofloxacin/ Dextrose (Levaquin 500mg/ D5W 100 ml (Pmx)) 100 ml @ 100 mls/hr Q24H IVPB Last administered on 06/19/16 16:39; Admin Dose 100 MLS/HR; Start at 16:30 Ferrous Gluconate (Fergon) 325 mg BID PO Last administered on 06/20/16 08:15; Admin Dose 325 MG; Start 06/12/16 at 21:00 Insulin Glargine (Lantus) 36 unit QHS SC Last administered on 06/19/16 20:35; Admin Dose 36 UNIT; Start 06/12/16 at 21:00 Guaifenesin (Mucinex) 600 mg BID PO Last administered on 06/20/16 08:15; Admin Dose 600 MG; Start 06/15/16 at 10:00 Zolpidem Tartrate (Ambien) 10 mg HS PRN PO INSOMNIA; Start 06/15/16 at 22:30 Potassium Chloride (Klor-Con 20) 20 meq DAILY PO Last administered on 06/20/16 08:16; Admin Dose 20 MEQ; Start 06/17/16 at 09:00 Apixaban (Eliquis) 5 mg BID PO Last administered on 06/20/16 08:15; Admin Dose 5 MG; Start 06/18/16 at 21:00 CAROLA WHALEY MD Jun 20, 2016 17:27
[2016-06-20] MEDS: ATORVASTATIN 40 MG TAB PO SCH (21:19)
[2016-06-20] MEDS: INSULIN GLARGINE [LANtus] 3 ML PEN SC SCH (21:27)
[2016-06-21] VITALS (13 sets, daily range): BP systolic 94–158; BP diastolic 48–90; PULSE 64–114; RESP 17–20
[2016-06-21] MEDS: ACCU-CHEK XX SCH (01:46)
[2016-06-21] MEDS: BUMETANIDE 1 MG TAB PO SCH ×2 (05:34→18:13)
[2016-06-21 07:33] LABS: ADD SCAN DIFF NO
[2016-06-21 07:36] LABS: BASOPHILS % 0.4 % (0.0-2.0); EOSINOPHILS # 0.2 10^3/ul (0.0-0.5); EOSINOPHILS % 1.7 % (0.0-7.0); HEMOGLOBIN 12.1 g/dl (12.0-16.0); LYMPHOCYTES # 2.1 10^3/ul (0.8-2.9); MEAN CORPUSCULAR HEMOGLOBIN 27.1 pg (29.0-33.0); MEAN CORPUSCULAR HGB CONC 29.5 g/dl (32.0-37.0); MEAN CORPUSCULAR VOLUME 91.9 fl (82.0-101.0); MEAN PLATELET VOLUME 9.1 fl (7.4-10.4); MONOCYTE # 0.8 10^3/ul (0.3-0.9); NEUTROPHIL # 7.7 10^3/ul (1.6-7.5); PLATELET COUNT 415 10^3/UL (140-415); RED BLOOD COUNT 4.46 10^6/ul (4.20-5.40); RED CELL DISTRIBUTION WIDTH 18.6 % (11.5-14.5); WHITE BLOOD COUNT 11.2 10^3/ul (4.8-10.8)
[2016-06-21 08:02] LABS: POTASSIUM 5.1 mmol/L (3.5-5.1)
[2016-06-21 08:05] LABS: CREATININE 0.88 mg/dl (0.44-1.00)
[2016-06-21 08:06] LABS: CALCIUM 9.3 mg/dl (8.4-10.2)
[2016-06-21 08:08] LABS: MAGNESIUM 2.2 mg/dl (1.7-2.5); PHOSPHORUS 4.4 mg/dl (2.5-4.9)
[2016-06-21] MEDS: CEFEPIME 1GM/50 ML (PMX) 50 ML IVPB SCH ×2 (08:27→20:51)
[2016-06-21] MEDS: SALMETEROL/FLUTICASONE 250/50 INHA INH SCH ×2 (08:27→21:00)
[2016-06-21] MEDS: POTASSIUM CHLORIDE (SR) 20 MEQ TAB PO SCH (08:28)
[2016-06-21] MEDS: FERROUS GLUCONATE (EC) 325 MG TAB PO SCH ×2 (08:28→20:52)
[2016-06-21] MEDS: GUAIFENESIN LA 600 MG TABSR PO SCH ×2 (08:28→20:52)
[2016-06-21] MEDS: APIXABAN 5 MG TABLET PO SCH ×2 (08:28→20:54)
[2016-06-21] MEDS: DILTIAZEM (CD) 240 MG CAP PO SCH (08:29)
[2016-06-21] MEDS: FAMOTIDINE 20 MG TAB PO SCH ×2 (08:29→20:51)
[2016-06-21] MEDS: SPIRONOLACTONE 25 MG TAB PO SCH (08:30)
[2016-06-21] MEDS: INSULIN ASPART [NOVOLOG] 3 ML PEN SC SCH ×6 (08:32→22:33)
[2016-06-21] MEDS: METOPROLOL 25 MG TAB PO SCH ×2 (09:00→20:53)
--- NOTE | 2016-06-21 11:35 | CONS ---
Date/Time of Note Date/Time of Note DATE: 06/21/16 TIME: 11:31 Assessment/Plan Assessment/Plan Additional Assessment/Plan Left lower lobe Pneumonia history of ca breast, right. obesity continue current treatment, CXR from today pending. Consultation Date/Type/Reason Admit Date/Time Jun 11, 2016 at 14:17 Initial Consult Date 06/12/16 Type of Consultation: Pulmonary 24 HR Interval Summary Free Text/Dictation patient doing well. no new complaints. GE: elderly lady, awake and alert, no distress. Exam/Review of Systems Vital Signs Vitals Vital Signs Date Time Temp Pulse Resp B/P Pulse Ox O2 Delivery O2 Flow Rate FiO2 06/21/16 08:17 78 06/21/16 07:54 Nasal Cannula 4.0 06/21/16 07:46 98.2 17 94/52 95 06/20/16 21:18 36 Intake and Output 06/20/16 06/20/16 06/21/16 15:00 23:00 07:00 Intake Total 1510 ml 600 ml Output Total 2000 ml 1400 ml Balance -490 ml -800 ml Exam HEENT: supple neck, no JVD CHEST: CTA, S1 S2 no murmurs. ABD: soft, non tender EXTREMITIES: no edema. 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 Results Result Diagram: 06/21/16 0630 06/21/16 0650 Results 24 hrs Laboratory Tests Test 06/20/16 17:15 06/20/16 21:20 06/21/16 01:14 06/21/16 06:30 Bedside Glucose 162 260 H 191 White Blood Count 11.2 H Red Blood Count 4.46 Hemoglobin 12.1 Hematocrit 41.0 Mean Corpuscular Volume 91.9 Mean Corpuscular Hemoglobin 27.1 L Mean Corpuscular Hemoglobin Concent 29.5 L Red Cell Distribution Width 18.6 H Platelet Count 415 Mean Platelet Volume 9.1 Neutrophils % 69.0 Lymphocytes % 19.0 Monocytes % 7.0 Eosinophils % 1.7 Basophils % 0.4 Nucleated Red Blood Cells % 0.0 Neutrophils # 7.7 H Lymphocytes # 2.1 Monocytes # 0.8 Eosinophils # 0.2 Basophils # 0.0 Nucleated Red Blood Cells # 0.0 Test 06/21/16 06:50 06/21/16 07:36 Sodium Level 136 Potassium Level 5.1 Chloride Level 90 L Carbon Dioxide Level 38 H Anion Gap 11 Blood Urea Nitrogen 21 H Creatinine 0.88 Glucose Level 141 Calcium Level 9.3 Phosphorus Level 4.4 Magnesium Level 2.2 Bedside Glucose 168 Medications Medications Current Medications Lorazepam (Ativan) 0.5 mg Q6H PRN IV ANXIETY Last administered on 06/14/16 21: 23; Admin Dose 0.5 MG; Start 06/11/16 at 06:00 Ondansetron HCl (Zofran Tab) 4 mg Q6H PRN PO NAUSEA AND/OR VOMITING; Start at 06:00 Metoclopramide HCl (Reglan) 10 mg Q6H PRN IV NAUSEA AND/OR VOMITING; Start at 06:00 Nitroglycerin (Nitroglycerin (Sl Tab) 0.4 Mg) 1 tab Q5M PRN SL CHEST PAIN; Start 06/11/16 at 06:00 Acetaminophen (Tylenol Tab) 650 mg Q6H PRN PO PAIN LEVEL 1-3 OR FEVER Last administered on 06/16/16 08:44; Admin Dose 650 MG; Start 06/11/16 at 06:00 Acetaminophen/ Hydrocodone Bitart ([place] (5/325)) 1 tab Q6H PRN PO PAIN LEVEL 4 -6; Start 06/11/16 at 06:00 Morphine Sulfate (morphine) 2 mg Q4H PRN IV PAIN LEVEL 7-10; Start 06/11/16 at 06:00 Famotidine (Pepcid) 20 mg Q12 PO Last administered on 06/21/16 08:29; Admin Dose 20 MG; Start 06/11/16 at 09:00 Atorvastatin Calcium (Lipitor) 40 mg HS PO Last administered on 06/20/16 21:19 ; Admin Dose 40 MG; Start 06/11/16 at 21:00 Digoxin (Digoxin) 0.25 mg DAILY@13 PO Last administered on 06/20/16 13:05; Admin Dose 0.25 MG; Start 06/11/16 at 13:00 Diltiazem HCl (Cardizem Cd) 240 mg DAILY PO Last administered on 06/21/16 08:29 ; Admin Dose 240 MG; Start 06/11/16 at 09:00 Metoprolol Tartrate (Lopressor) 25 mg BID PO Last administered on 06/20/16 21: 19; Admin Dose 25 MG; Start 06/11/16 at 09:00 Salmeterol Xinafoate/ Fluticasone (Advair 250/50 Diskus) 1 inh BID INH Last administered on 06/21/16 08:27; Admin Dose 1 INH; Start 06/11/16 at 09:00 Spironolactone (Aldactone) 25 mg DAILY PO Last administered on 06/21/16 08:30; Admin Dose 25 MG; Start 06/11/16 at 09:00 Miscellaneous Information 1 ea NOTE XX ; Start 06/11/16 at 08:00 Glucose (Glutose) 15 gm Q15M PRN PO DECREASED GLUCOSE; Start 06/11/16 at 08:00 Glucose (Glutose) 22.5 gm Q15M PRN PO DECREASED GLUCOSE; Start 06/11/16 at 08: 00 Dextrose (D50w Syringe) 25 ml Q15M PRN IV DECREASED GLUCOSE; Start 06/11/16 at 08:00 Dextrose (D50w Syringe) 50 ml Q15M PRN IV DECREASED GLUCOSE; Start 06/11/16 at 08:00 Glucagon (Glucagen) 1 mg Q15M PRN IM DECREASED GLUCOSE; Start 06/11/16 at 08:00 Glucose (Glutose) 15 gm Q15M PRN BUCCAL DECREASED GLUCOSE; Start 06/11/16 at 08 :00 Diagnostic Test (Pha) 1 ea 1 ea 02 XX Last administered on 06/21/16 01:46; Admin Dose 1 EA; Start 06/12/16 at 02:00 Cefepime HCl 50 ml @ 100 mls/hr Q12 IVPB Last administered on 06/21/16 08:27; Admin Dose 100 MLS/HR; Start 06/11/16 at 21:00 Levofloxacin/ Dextrose (Levaquin 500mg/ D5W 100 ml (Pmx)) 100 ml @ 100 mls/hr Q24H IVPB Last administered on 06/20/16 17:14; Admin Dose 100 MLS/HR; Start at 16:30 Ferrous Gluconate (Fergon) 325 mg BID PO Last administered on 06/21/16 08:28; Admin Dose 325 MG; Start 06/12/16 at 21:00 Insulin Glargine (Lantus) 36 unit QHS SC Last administered on 06/20/16 21:27; Admin Dose 36 UNIT; Start 06/12/16 at 21:00 Guaifenesin (Mucinex) 600 mg BID PO Last administered on 06/21/16 08:28; Admin Dose 600 MG; Start 06/15/16 at 10:00 Zolpidem Tartrate (Ambien) 10 mg HS PRN PO INSOMNIA; Start 06/15/16 at 22:30 Potassium Chloride (Klor-Con 20) 20 meq DAILY PO Last administered on 06/21/16 08:28; Admin Dose 20 MEQ; Start 06/17/16 at 09:00 Apixaban (Eliquis) 5 mg BID PO Last administered on 06/21/16 08:28; Admin Dose 5 MG; Start 06/18/16 at 21:00 MAGALYS CHAPIN Jun 21, 2016 11:35
[2016-06-21] MEDS: DIGOXIN 0.25 MG TAB PO SCH (13:00)
--- NOTE | 2016-06-21 14:20 | CONS ---
Date/Time of Note Date/Time of Note DATE: 06/21/16 TIME: 14:18 Assessment/Plan Assessment/Plan Chief Complaint/Hosp Course Acute on chronic hypoxic respiratory failure - likely multifactorial including CHF, pleural effusion and pneumonia Acute on chronic diastolic heart failure - echocardiogram 11/14/2015 showed LVEF 55% Chronic atrial fibrillation - HR overall controlled currently. On Eliquis at home Pneumonia/pleural effusion - status post thoracentesis 06/16/2016 Chronic obstructive pulmonary disease - on 4 liters home oxygen at baseline Hypertension Dyslipidemia Diabetes mellitus -continue Bumex 1mg PO BID -continue spironolactone 25mg daily -continue metoprolol 25mg BID and diltiazem 240mg daily -continue digoxin 250mcg -continue atorvastatin 40mg daily -continue Eliquis 5mg BID Problems: Consultation Date/Type/Reason Admit Date/Time Jun 11, 2016 at 14:17 Initial Consult Date 06/12/16 Type of Consultation: Cardiology 24 HR Interval Summary Free Text/Dictation No acute events. Continues to work with physical therapy. Detailed Summary Additional Comments 14 point review of systems without changes. Exam/Review of Systems Vital Signs Vitals Vital Signs Date Time Temp Pulse Resp B/P Pulse Ox O2 Delivery O2 Flow Rate FiO2 06/21/16 12:38 93 06/21/16 11:40 97.1 18 158/90 97 06/21/16 07:54 Nasal Cannula 4.0 06/20/16 21:18 36 Intake and Output 06/20/16 06/20/16 06/21/16 15:00 23:00 07:00 Intake Total 1510 ml 600 ml Output Total 2000 ml 1400 ml Balance -490 ml -800 ml Exam Constitutional: alert, oriented Psych: no complaints Head: atraumatic, normocephalic Neck: jvd (10cm) Respiratory: crackles/rales, diminished breath sounds (on left), No clear to auscultation Cardiovascular: edema, No regular rate and rhythm (IRIR), No systolic murmur Gastrointestinal: non-tender, soft 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: nl mental status, nl speech Skin: No rash or lesions Results Result Diagram: 06/21/16 0630 06/21/16 0650 Results 24 hrs Laboratory Tests Test 06/20/16 17:15 06/20/16 21:20 06/21/16 01:14 06/21/16 06:30 Bedside Glucose 162 260 H 191 White Blood Count 11.2 H Red Blood Count 4.46 Hemoglobin 12.1 Hematocrit 41.0 Mean Corpuscular Volume 91.9 Mean Corpuscular Hemoglobin 27.1 L Mean Corpuscular Hemoglobin Concent 29.5 L Red Cell Distribution Width 18.6 H Platelet Count 415 Mean Platelet Volume 9.1 Neutrophils % 69.0 Lymphocytes % 19.0 Monocytes % 7.0 Eosinophils % 1.7 Basophils % 0.4 Nucleated Red Blood Cells % 0.0 Neutrophils # 7.7 H Lymphocytes # 2.1 Monocytes # 0.8 Eosinophils # 0.2 Basophils # 0.0 Nucleated Red Blood Cells # 0.0 Test 06/21/16 06:50 06/21/16 07:36 06/21/16 12:25 Sodium Level 136 Potassium Level 5.1 Chloride Level 90 L Carbon Dioxide Level 38 H Anion Gap 11 Blood Urea Nitrogen 21 H Creatinine 0.88 Glucose Level 141 Calcium Level 9.3 Phosphorus Level 4.4 Magnesium Level 2.2 Bedside Glucose 168 111 Medications Medications Current Medications Lorazepam (Ativan) 0.5 mg Q6H PRN IV ANXIETY Last administered on 06/14/16 21: 23; Admin Dose 0.5 MG; Start 06/11/16 at 06:00 Ondansetron HCl (Zofran Tab) 4 mg Q6H PRN PO NAUSEA AND/OR VOMITING; Start at 06:00 Metoclopramide HCl (Reglan) 10 mg Q6H PRN IV NAUSEA AND/OR VOMITING; Start at 06:00 Nitroglycerin (Nitroglycerin (Sl Tab) 0.4 Mg) 1 tab Q5M PRN SL CHEST PAIN; Start 06/11/16 at 06:00 Acetaminophen (Tylenol Tab) 650 mg Q6H PRN PO PAIN LEVEL 1-3 OR FEVER Last administered on 06/16/16 08:44; Admin Dose 650 MG; Start 06/11/16 at 06:00 Acetaminophen/ Hydrocodone Bitart ([place] (5/325)) 1 tab Q6H PRN PO PAIN LEVEL 4 -6; Start 06/11/16 at 06:00 Morphine Sulfate (morphine) 2 mg Q4H PRN IV PAIN LEVEL 7-10; Start 06/11/16 at 06:00 Famotidine (Pepcid) 20 mg Q12 PO Last administered on 06/21/16 08:29; Admin Dose 20 MG; Start 06/11/16 at 09:00 Atorvastatin Calcium (Lipitor) 40 mg HS PO Last administered on 06/20/16 21:19 ; Admin Dose 40 MG; Start 06/11/16 at 21:00 Digoxin (Digoxin) 0.25 mg DAILY@13 PO Last administered on 06/20/16 13:05; Admin Dose 0.25 MG; Start 06/11/16 at 13:00 Diltiazem HCl (Cardizem Cd) 240 mg DAILY PO Last administered on 06/21/16 08:29 ; Admin Dose 240 MG; Start 06/11/16 at 09:00 Metoprolol Tartrate (Lopressor) 25 mg BID PO Last administered on 06/20/16 21: 19; Admin Dose 25 MG; Start 06/11/16 at 09:00 Salmeterol Xinafoate/ Fluticasone (Advair 250/50 Diskus) 1 inh BID INH Last administered on 06/21/16 08:27; Admin Dose 1 INH; Start 06/11/16 at 09:00 Spironolactone (Aldactone) 25 mg DAILY PO Last administered on 06/21/16 08:30; Admin Dose 25 MG; Start 06/11/16 at 09:00 Miscellaneous Information 1 ea NOTE XX ; Start 06/11/16 at 08:00 Glucose (Glutose) 15 gm Q15M PRN PO DECREASED GLUCOSE; Start 06/11/16 at 08:00 Glucose (Glutose) 22.5 gm Q15M PRN PO DECREASED GLUCOSE; Start 06/11/16 at 08: 00 Dextrose (D50w Syringe) 25 ml Q15M PRN IV DECREASED GLUCOSE; Start 06/11/16 at 08:00 Dextrose (D50w Syringe) 50 ml Q15M PRN IV DECREASED GLUCOSE; Start 06/11/16 at 08:00 Glucagon (Glucagen) 1 mg Q15M PRN IM DECREASED GLUCOSE; Start 06/11/16 at 08:00 Glucose (Glutose) 15 gm Q15M PRN BUCCAL DECREASED GLUCOSE; Start 06/11/16 at 08 :00 Diagnostic Test (Pha) 1 ea 1 ea 02 XX Last administered on 06/21/16 01:46; Admin Dose 1 EA; Start 06/12/16 at 02:00 Cefepime HCl 50 ml @ 100 mls/hr Q12 IVPB Last administered on 06/21/16 08:27; Admin Dose 100 MLS/HR; Start 06/11/16 at 21:00 Levofloxacin/ Dextrose (Levaquin 500mg/ D5W 100 ml (Pmx)) 100 ml @ 100 mls/hr Q24H IVPB Last administered on 06/20/16 17:14; Admin Dose 100 MLS/HR; Start at 16:30 Ferrous Gluconate (Fergon) 325 mg BID PO Last administered on 06/21/16 08:28; Admin Dose 325 MG; Start 06/12/16 at 21:00 Insulin Glargine (Lantus) 36 unit QHS SC Last administered on 06/20/16 21:27; Admin Dose 36 UNIT; Start 06/12/16 at 21:00 Guaifenesin (Mucinex) 600 mg BID PO Last administered on 06/21/16 08:28; Admin Dose 600 MG; Start 06/15/16 at 10:00 Zolpidem Tartrate (Ambien) 10 mg HS PRN PO INSOMNIA; Start 06/15/16 at 22:30 Potassium Chloride (Klor-Con 20) 20 meq DAILY PO Last administered on 06/21/16 08:28; Admin Dose 20 MEQ; Start 06/17/16 at 09:00 Apixaban (Eliquis) 5 mg BID PO Last administered on 06/21/16 08:28; Admin Dose 5 MG; Start 06/18/16 at 21:00 CAROLA WHALEY MD Jun 21, 2016 14:20
--- NOTE | 2016-06-21 15:50 | PN ---
Date/Time of Note Date/Time of Note DATE: 06/21/16 TIME: 15:48 Assessment/Plan VTE Prophylaxis VTE Prophylaxis Intervention: other (Eliquis.) Lines/Catheters IV [facility] [place] Urinary Cath still in place: No Assessment/Plan Chief Complaint/Hosp Course 1. Acute on chronic respiratory failure, hypoxic and hypercapnic, most probably secondary to chronic obstructive pulmonary disease along with a combination of congestive heart failure exacerbation (diastolic dysfunction). Continue inhaled bronchodilators. Continue supplemental oxygen. Being followed by cardiology and pulmonary. 2. Large left-sided pleural effusion with underlying atelectasis/ consolidation. The patient is on antibiotics. S/P ultrasound-guided thoracentesis of the left side on 06/16/2016. 3. Healthcare-associated pneumonia. Continue antibiotics. No evidence of any septic shock. 4. Acute on chronic diastolic heart failure. Continue cardiac medications. Cardiology following the patient. 5. Atrial fibrillation. Rate controlled. Continue rate control. Cardiology following the patient. Therapeutic anticoagulation will be deferred to cardiology. 6. Pulmonary hypertension. PA pressure of 45 mmHg as per 2D echocardiogram on 11/16/2015. Continue supplemental oxygen. 7. Type 2 diabetes mellitus. Hemoglobin A1c 8.8. Continue sliding scale insulin along with Lantus insulin and add premeal insulin. 8. Dyslipidemia. Continue statins. 9. Essential hypertension. Continue antihypertensives. 10. Chronic obstructive pulmonary disease with chronic hypoxia, dependent on home oxygen. Continue maintenance inhalers. 11. Hypochromic anemia. Monitor the H and H closely. Iron panel showing low iron levels. Continue iron supplements. 12. Fluid, electrolytes, and nutrition. Continue carbohydrate controlled low cholesterol diet. 13. Deep venous thrombosis prophylaxis. Eliquis. 14. Gastrointestinal prophylaxis. Histamine 2 receptor blockers. PLAN: Continue current care. Await clearance form consultants before discharge. The case was discussed with Dr. Cortés. The plan of care was explained to the patient's son who was at the bedside. Problems: Subjective 24 Hr Interval Summary Free Text/Dictation Denies any chest pain. Complains of dyspnea with minimal exertion. Exam/Review of Systems Vital Signs Vitals Vital Signs Date Time Temp Pulse Resp B/P Pulse Ox O2 Delivery O2 Flow Rate FiO2 06/21/16 12:38 93 06/21/16 11:40 97.1 18 158/90 97 06/21/16 07:54 Nasal Cannula 4.0 4/3/17 21:18 36 Intake and Output 06/20/16 06/20/16 06/21/16 15:00 23:00 07:00 Intake Total 1510 ml 600 ml Output Total 2000 ml 1400 ml Balance -490 ml -800 ml Exam GENERAL: This is a morbidly obese 65-year-old female patient sitting in a chair in no apparent distress. HEENT: Head normocephalic and atraumatic. Eyes: Anicteric sclerae. Conjunctivae clear. Nasal septum is midline. Oral mucosa is moist. NECK: Obese. Supple. RESPIRATORY: Bilaterally diminished breath sounds. Use of accessory muscles for respiration. Bilateral fine rales. CARDIOVASCULAR: S1, S2 heard. Irregularly irregular rhythm. ABDOMEN: Soft and nontender. Bowel sounds positive in all 4 quadrants. GENITOURINARY: Deferred. EXTREMITIES: No cyanosis. Bilateral lower extremity 2+ pitting edema. Peripheral pulses palpable. NEUROLOGIC: Cranial nerves II through XII are grossly intact. The patient is awake, alert, and oriented. Results Result Diagram: 06/21/16 0630 06/21/16 0650 Results 24 hrs Laboratory Tests Test 06/20/16 17:15 06/20/16 21:20 06/21/16 01:14 06/21/16 06:30 Bedside Glucose 162 260 H 191 White Blood Count 11.2 H Red Blood Count 4.46 Hemoglobin 12.1 Hematocrit 41.0 Mean Corpuscular Volume 91.9 Mean Corpuscular Hemoglobin 27.1 L Mean Corpuscular Hemoglobin Concent 29.5 L Red Cell Distribution Width 18.6 H Platelet Count 415 Mean Platelet Volume 9.1 Neutrophils % 69.0 Lymphocytes % 19.0 Monocytes % 7.0 Eosinophils % 1.7 Basophils % 0.4 Nucleated Red Blood Cells % 0.0 Neutrophils # 7.7 H Lymphocytes # 2.1 Monocytes # 0.8 Eosinophils # 0.2 Basophils # 0.0 Nucleated Red Blood Cells # 0.0 Test 06/21/16 06:50 06/21/16 07:36 06/21/16 12:25 Sodium Level 136 Potassium Level 5.1 Chloride Level 90 L Carbon Dioxide Level 38 H Anion Gap 11 Blood Urea Nitrogen 21 H Creatinine 0.88 Glucose Level 141 Calcium Level 9.3 Phosphorus Level 4.4 Magnesium Level 2.2 Bedside Glucose 168 111 Medications Medications Current Medications Lorazepam (Ativan) 0.5 mg Q6H PRN IV ANXIETY Last administered on 06/14/16 21: 23; Admin Dose 0.5 MG; Start 06/11/16 at 06:00 Ondansetron HCl (Zofran Tab) 4 mg Q6H PRN PO NAUSEA AND/OR VOMITING; Start at 06:00 Metoclopramide HCl (Reglan) 10 mg Q6H PRN IV NAUSEA AND/OR VOMITING; Start at 06:00 Nitroglycerin (Nitroglycerin (Sl Tab) 0.4 Mg) 1 tab Q5M PRN SL CHEST PAIN; Start 06/11/16 at 06:00 Acetaminophen (Tylenol Tab) 650 mg Q6H PRN PO PAIN LEVEL 1-3 OR FEVER Last administered on 06/16/16 08:44; Admin Dose 650 MG; Start 06/11/16 at 06:00 Acetaminophen/ Hydrocodone Bitart ([place] (5/325)) 1 tab Q6H PRN PO PAIN LEVEL 4 -6; Start 06/11/16 at 06:00 Morphine Sulfate (morphine) 2 mg Q4H PRN IV PAIN LEVEL 7-10; Start 06/11/16 at 06:00 Famotidine (Pepcid) 20 mg Q12 PO Last administered on 06/21/16 08:29; Admin Dose 20 MG; Start 06/11/16 at 09:00 Atorvastatin Calcium (Lipitor) 40 mg HS PO Last administered on 06/20/16 21:19 ; Admin Dose 40 MG; Start 06/11/16 at 21:00 Digoxin (Digoxin) 0.25 mg DAILY@13 PO Last administered on 06/20/16 13:05; Admin Dose 0.25 MG; Start 06/11/16 at 13:00 Diltiazem HCl (Cardizem Cd) 240 mg DAILY PO Last administered on 06/21/16 08:29 ; Admin Dose 240 MG; Start 06/11/16 at 09:00 Metoprolol Tartrate (Lopressor) 25 mg BID PO Last administered on 06/20/16 21: 19; Admin Dose 25 MG; Start 06/11/16 at 09:00 Salmeterol Xinafoate/ Fluticasone (Advair 250/50 Diskus) 1 inh BID INH Last administered on 06/21/16 08:27; Admin Dose 1 INH; Start 06/11/16 at 09:00 Spironolactone (Aldactone) 25 mg DAILY PO Last administered on 06/21/16 08:30; Admin Dose 25 MG; Start 06/11/16 at 09:00 Miscellaneous Information 1 ea NOTE XX ; Start 06/11/16 at 08:00 Glucose (Glutose) 15 gm Q15M PRN PO DECREASED GLUCOSE; Start 06/11/16 at 08:00 Glucose (Glutose) 22.5 gm Q15M PRN PO DECREASED GLUCOSE; Start 06/11/16 at 08: 00 Dextrose (D50w Syringe) 25 ml Q15M PRN IV DECREASED GLUCOSE; Start 06/11/16 at 08:00 Dextrose (D50w Syringe) 50 ml Q15M PRN IV DECREASED GLUCOSE; Start 06/11/16 at 08:00 Glucagon (Glucagen) 1 mg Q15M PRN IM DECREASED GLUCOSE; Start 06/11/16 at 08:00 Glucose (Glutose) 15 gm Q15M PRN BUCCAL DECREASED GLUCOSE; Start 06/11/16 at 08 :00 Diagnostic Test (Pha) 1 ea 1 ea 02 XX Last administered on 06/21/16 01:46; Admin Dose 1 EA; Start 06/12/16 at 02:00 Cefepime HCl 50 ml @ 100 mls/hr Q12 IVPB Last administered on 06/21/16 08:27; Admin Dose 100 MLS/HR; Start 06/11/16 at 21:00 Levofloxacin/ Dextrose (Levaquin 500mg/ D5W 100 ml (Pmx)) 100 ml @ 100 mls/hr Q24H IVPB Last administered on 06/20/16 17:14; Admin Dose 100 MLS/HR; Start at 16:30 Ferrous Gluconate (Fergon) 325 mg BID PO Last administered on 06/21/16 08:28; Admin Dose 325 MG; Start 06/12/16 at 21:00 Insulin Glargine (Lantus) 36 unit QHS SC Last administered on 06/20/16 21:27; Admin Dose 36 UNIT; Start 06/12/16 at 21:00 Guaifenesin (Mucinex) 600 mg BID PO Last administered on 06/21/16 08:28; Admin Dose 600 MG; Start 06/15/16 at 10:00 Zolpidem Tartrate (Ambien) 10 mg HS PRN PO INSOMNIA; Start 06/15/16 at 22:30 Potassium Chloride (Klor-Con 20) 20 meq DAILY PO Last administered on 06/21/16 08:28; Admin Dose 20 MEQ; Start 06/17/16 at 09:00 Apixaban (Eliquis) 5 mg BID PO Last administered on 06/21/16 08:28; Admin Dose 5 MG; Start 06/18/16 at 21:00 KELLY LANDERS NP Jun 21, 2016 15:50
--- NOTE | 2016-06-21 16:44 | RADRPT ---
PROCEDURE: XR Chest. CLINICAL INDICATION: Shortness of breath. TECHNIQUE: Single frontal view. COMPARISON: 06/18/2016. FINDINGS: There is atelectasis at the lung bases, left worse than right. The appearance is improved when comp ared with 06/18/2016. The lungs are otherwise clear. The heart is enlarged. There is calcification in the aorta consistent with atherosclerosis. There are small bilateral pleural effusions with left larger than right. These are also smaller regan n seen on 06/18/2016. There is no pneumothorax. IMPRESSION: 1. Improved appearance of the lung bases and smaller pleural effusions. 2. Cardiomegaly and atherosclerosis. RPTAT: QQ .Raymond Palacios MD, MD Date Time Electronically viewed and signed by .Raymond Palacios MD, on 06/21/2016 16:44 .R/
[2016-06-21] MEDS: LEVOFLOXACIN 500MG/D5W (PMX) 100 ML IVPB SCH (18:06)
[2016-06-21] MEDS: ATORVASTATIN 40 MG TAB PO SCH (20:52)
[2016-06-21] MEDS: morphine 2 MG INJ IV PRN (20:54)
[2016-06-21] MEDS: INSULIN GLARGINE [LANtus] 3 ML PEN SC SCH (22:33)
[2016-06-22] VITALS (12 sets, daily range): BP systolic 93–148; BP diastolic 46–83; PULSE 57–79; RESP 18–20
[2016-06-22] MEDS: morphine 2 MG INJ IV PRN ×3 (00:04→20:47)
[2016-06-22] MEDS: ACCU-CHEK XX SCH (01:34)
[2016-06-22] MEDS: BUMETANIDE 1 MG TAB PO SCH ×2 (05:59→17:24)
[2016-06-22] MEDS: APIXABAN 5 MG TABLET PO SCH ×2 (08:08→21:39)
[2016-06-22] MEDS: POTASSIUM CHLORIDE (SR) 20 MEQ TAB PO SCH (08:08)
[2016-06-22] MEDS: FAMOTIDINE 20 MG TAB PO SCH ×2 (08:09→21:39)
[2016-06-22] MEDS: FERROUS GLUCONATE (EC) 325 MG TAB PO SCH ×2 (08:09→21:39)
[2016-06-22] MEDS: GUAIFENESIN LA 600 MG TABSR PO SCH ×2 (08:09→21:39)
[2016-06-22] MEDS: SPIRONOLACTONE 25 MG TAB PO SCH (08:09)
[2016-06-22] MEDS: CEFEPIME 1GM/50 ML (PMX) 50 ML IVPB SCH (08:09)
[2016-06-22] MEDS: SALMETEROL/FLUTICASONE 250/50 INHA INH SCH ×2 (08:11→21:41)
[2016-06-22] MEDS: DILTIAZEM (CD) 240 MG CAP PO SCH (08:11)
[2016-06-22] MEDS: METOPROLOL 25 MG TAB PO SCH ×3 (08:11→21:39)
[2016-06-22] MEDS: INSULIN ASPART [NOVOLOG] 3 ML PEN SC SCH ×7 (08:15→21:00)
[2016-06-22 08:28] LABS: ADD SCAN DIFF NO
[2016-06-22 08:43] LABS: BASOPHILS % 0.3 % (0.0-2.0); EOSINOPHILS # 0.2 10^3/ul (0.0-0.5); EOSINOPHILS % 1.5 % (0.0-7.0); HEMATOCRIT 40.7 % (37.0-47.0); HEMOGLOBIN 11.9 g/dl (12.0-16.0); LYMPHOCYTES # 2.3 10^3/ul (0.8-2.9); LYMPHOCYTES % 17.5 % (15.0-51.0); MEAN CORPUSCULAR HEMOGLOBIN 27.2 pg (29.0-33.0); MEAN CORPUSCULAR HGB CONC 29.2 g/dl (32.0-37.0); MEAN CORPUSCULAR VOLUME 93.1 fl (82.0-101.0); MEAN PLATELET VOLUME 9.2 fl (7.4-10.4); MONOCYTE # 0.8 10^3/ul (0.3-0.9); MONOCYTES % 6.2 % (0.0-11.0); NEUTROPHIL # 9.4 10^3/ul (1.6-7.5); NEUTROPHILS % 72.1 % (39.0-77.0); PLATELET COUNT 441 10^3/UL (140-415); RED BLOOD COUNT 4.37 10^6/ul (4.20-5.40); RED CELL DISTRIBUTION WIDTH 18.8 % (11.5-14.5); WHITE BLOOD COUNT 13.1 10^3/ul (4.8-10.8)
[2016-06-22 08:44] LABS: POTASSIUM 4.4 mmol/L (3.5-5.1)
[2016-06-22 08:46] LABS: CREATININE 0.89 mg/dl (0.44-1.00)
[2016-06-22 08:47] LABS: CALCIUM 9.1 mg/dl (8.4-10.2)
--- NOTE | 2016-06-22 12:07 | CONS ---
Date/Time of Note Date/Time of Note DATE: 06/22/16 TIME: 12:06 Assessment/Plan Assessment/Plan Additional Assessment/Plan Chest x-ray was reviewed from yesterday afternoon which is essentially clear now. Assessment recommendations; next 1. Patient admitted for left lower lobe pneumonia with marked clinical and radiological improvement. 2. History of hypertension or diabetes. 3. History of obesity. 4. Possibly history of COPD. Discontinue antibiotics. Patient can be discharged home. Consultation Date/Type/Reason Admit Date/Time Jun 11, 2016 at 14:17 Initial Consult Date 06/12/16 Type of Consultation: Pulmonary 24 HR Interval Summary Free Text/Dictation Patient condition is stable. Denies any shortness of breath, coughing, wheezing chest pain fever chills. General exam; elderly lady, currently in no distress. Awake and alert. Exam/Review of Systems Vital Signs Vitals Vital Signs Date Time Temp Pulse Resp B/P Pulse Ox O2 Delivery O2 Flow Rate FiO2 06/22/16 11:46 98.5 98 18 148/56 94 06/22/16 09:50 Nasal Cannula 4.0 06/20/16 21:18 36 Intake and Output 06/21/16 06/21/16 06/22/16 14:59 22:59 06:59 Intake Total 950 ml Output Total 2000 ml Balance -1050 ml Exam HEENT exam is; supple neck, no JVD. No lymphadenopathy. Midline trachea. No thyromegaly. Patient's has few missing teeth. Pharynx is clear. Chest exam is; clear to auscultation bilaterally. S1-S2 audible, no murmurs. Abdomen examination; soft, protuberant. Nontender. Bowel sounds audible. Extremity examination; no peripheral edema. No clubbing. Pulses 1+ bilaterally. 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 Results Result Diagram: 06/22/16 0720 06/22/16 0720 Results 24 hrs Laboratory Tests Test 06/21/16 12:25 06/21/16 17:04 06/21/16 22:27 06/22/16 01:32 Bedside Glucose 111 102 309 H 238 H Test 06/22/16 07:20 06/22/16 07:42 06/22/16 11:31 White Blood Count 13.1 H Red Blood Count 4.37 Hemoglobin 11.9 L Hematocrit 40.7 Mean Corpuscular Volume 93.1 Mean Corpuscular Hemoglobin 27.2 L Mean Corpuscular Hemoglobin Concent 29.2 L Red Cell Distribution Width 18.8 H Platelet Count 441 H Mean Platelet Volume 9.2 Neutrophils % 72.1 Lymphocytes % 17.5 Monocytes % 6.2 Eosinophils % 1.5 Basophils % 0.3 Nucleated Red Blood Cells % 0.0 Neutrophils # 9.4 H Lymphocytes # 2.3 Monocytes # 0.8 Eosinophils # 0.2 Basophils # 0.0 Nucleated Red Blood Cells # 0.0 Sodium Level 138 Potassium Level 4.4 Chloride Level 88 L Carbon Dioxide Level 38 H Anion Gap 16 Blood Urea Nitrogen 20 Creatinine 0.89 Glucose Level 145 Calcium Level 9.1 Magnesium Level 2.0 Bedside Glucose 158 196 Medications Medications Current Medications Lorazepam (Ativan) 0.5 mg Q6H PRN IV ANXIETY Last administered on 06/14/16 21: 23; Admin Dose 0.5 MG; Start 06/11/16 at 06:00 Ondansetron HCl (Zofran Tab) 4 mg Q6H PRN PO NAUSEA AND/OR VOMITING; Start at 06:00 Metoclopramide HCl (Reglan) 10 mg Q6H PRN IV NAUSEA AND/OR VOMITING; Start at 06:00 Nitroglycerin (Nitroglycerin (Sl Tab) 0.4 Mg) 1 tab Q5M PRN SL CHEST PAIN; Start 06/11/16 at 06:00 Acetaminophen (Tylenol Tab) 650 mg Q6H PRN PO PAIN LEVEL 1-3 OR FEVER Last administered on 06/16/16 08:44; Admin Dose 650 MG; Start 06/11/16 at 06:00 Acetaminophen/ Hydrocodone Bitart ([place] (5/325)) 1 tab Q6H PRN PO PAIN LEVEL 4 -6; Start 06/11/16 at 06:00 Morphine Sulfate (morphine) 2 mg Q4H PRN IV PAIN LEVEL 7-10 Last administered on 06/22/16 04:11; Admin Dose 2 MG; Start 06/11/16 at 06:00 Famotidine (Pepcid) 20 mg Q12 PO Last administered on 06/22/16 08:09; Admin Dose 20 MG; Start 06/11/16 at 09:00 Atorvastatin Calcium (Lipitor) 40 mg HS PO Last administered on 06/21/16 20:52 ; Admin Dose 40 MG; Start 06/11/16 at 21:00 Digoxin (Digoxin) 0.25 mg DAILY@13 PO Last administered on 06/21/16 13:00; Admin Dose 0.25 MG; Start 06/11/16 at 13:00 Diltiazem HCl (Cardizem Cd) 240 mg DAILY PO Last administered on 06/22/16 08:11 ; Admin Dose 240 MG; Start 06/11/16 at 09:00 Metoprolol Tartrate (Lopressor) 25 mg BID PO Last administered on 06/21/16 20: 53; Admin Dose 25 MG; Start 06/11/16 at 09:00 Salmeterol Xinafoate/ Fluticasone (Advair 250/50 Diskus) 1 inh BID INH Last administered on 06/22/16 08:11; Admin Dose 1 INH; Start 06/11/16 at 09:00 Spironolactone (Aldactone) 25 mg DAILY PO Last administered on 06/22/16 08:09; Admin Dose 25 MG; Start 06/11/16 at 09:00 Miscellaneous Information 1 ea NOTE XX ; Start 06/11/16 at 08:00 Glucose (Glutose) 15 gm Q15M PRN PO DECREASED GLUCOSE; Start 06/11/16 at 08:00 Glucose (Glutose) 22.5 gm Q15M PRN PO DECREASED GLUCOSE; Start 06/11/16 at 08: 00 Dextrose (D50w Syringe) 25 ml Q15M PRN IV DECREASED GLUCOSE; Start 06/11/16 at 08:00 Dextrose (D50w Syringe) 50 ml Q15M PRN IV DECREASED GLUCOSE; Start 06/11/16 at 08:00 Glucagon (Glucagen) 1 mg Q15M PRN IM DECREASED GLUCOSE; Start 06/11/16 at 08:00 Glucose (Glutose) 15 gm Q15M PRN BUCCAL DECREASED GLUCOSE; Start 06/11/16 at 08 :00 Diagnostic Test (Pha) 1 ea 1 ea 02 XX Last administered on 06/22/16 01:34; Admin Dose 1 EA; Start 06/12/16 at 02:00 Cefepime HCl 50 ml @ 100 mls/hr Q12 IVPB Last administered on 06/22/16 08:09; Admin Dose 100 MLS/HR; Start 06/11/16 at 21:00 Levofloxacin/ Dextrose (Levaquin 500mg/ D5W 100 ml (Pmx)) 100 ml @ 100 mls/hr Q24H IVPB Last administered on 06/21/16 18:06; Admin Dose 100 MLS/HR; Start at 16:30 Ferrous Gluconate (Fergon) 325 mg BID PO Last administered on 06/22/16 08:09; Admin Dose 325 MG; Start 06/12/16 at 21:00 Insulin Glargine (Lantus) 36 unit QHS SC Last administered on 06/21/16 22:33; Admin Dose 36 UNIT; Start 06/12/16 at 21:00 Guaifenesin (Mucinex) 600 mg BID PO Last administered on 06/22/16 08:09; Admin Dose 600 MG; Start 06/15/16 at 10:00 Zolpidem Tartrate (Ambien) 10 mg HS PRN PO INSOMNIA; Start 06/15/16 at 22:30 Potassium Chloride (Klor-Con 20) 20 meq DAILY PO Last administered on 06/22/16 08:08; Admin Dose 20 MEQ; Start 06/17/16 at 09:00 Apixaban (Eliquis) 5 mg BID PO Last administered on 06/22/16 08:08; Admin Dose 5 MG; Start 06/18/16 at 21:00 MAGALYS CHAPIN Jun 22, 2016 12:07
[2016-06-22] MEDS: DIGOXIN 0.25 MG TAB PO SCH (12:13)
--- NOTE | 2016-06-22 13:30 | PN ---
Date/Time of Note Date/Time of Note DATE: 06/22/16 TIME: 13:29 Assessment/Plan VTE Prophylaxis VTE Prophylaxis Intervention: other (Eliquis) Lines/Catheters IV Catheter Type (from [facility]): [facility] [facility] Urinary Cath still in place: No Assessment/Plan Chief Complaint/Hosp Course 1. Acute on chronic respiratory failure, hypoxic and hypercapnic, most probably secondary to chronic obstructive pulmonary disease along with a combination of congestive heart failure exacerbation (diastolic dysfunction). Continue inhaled bronchodilators. Continue supplemental oxygen. Being followed by cardiology and pulmonary. 2. Large left-sided pleural effusion with underlying atelectasis/ consolidation. The patient is on antibiotics. S/P ultrasound-guided thoracentesis of the left side on 06/16/2016. 3. Healthcare-associated pneumonia. Continue antibiotics. No evidence of any septic shock. 4. Acute on chronic diastolic heart failure. Continue cardiac medications. Cardiology following the patient. 5. Atrial fibrillation. Rate controlled. Continue rate control. Cardiology following the patient. Therapeutic anticoagulation will be deferred to cardiology. 6. Pulmonary hypertension. PA pressure of 45 mmHg as per 2D echocardiogram on 11/16/2015. Continue supplemental oxygen. 7. Type 2 diabetes mellitus. Hemoglobin A1c 8.8. Continue sliding scale insulin along with Lantus insulin and add premeal insulin. 8. Dyslipidemia. Continue statins. 9. Essential hypertension. Continue antihypertensives. 10. Chronic obstructive pulmonary disease with chronic hypoxia, dependent on home oxygen. Continue maintenance inhalers. 11. Hypochromic anemia. Monitor the H and H closely. Iron panel showing low iron levels. Continue iron supplements. 12. Fluid, electrolytes, and nutrition. Continue carbohydrate controlled low cholesterol diet. 13. Deep venous thrombosis prophylaxis. Eliquis. 14. Gastrointestinal prophylaxis. Histamine 2 receptor blockers. PLAN: Continue current care. Await clearance form consultants before discharge. The case was discussed with Dr. Cortés. Problems: Subjective 24 Hr Interval Summary Free Text/Dictation Feeling better. However, has worsening hypoxia with exertion. Exam/Review of Systems Vital Signs Vitals Vital Signs Date Time Temp Pulse Resp B/P Pulse Ox O2 Delivery O2 Flow Rate FiO2 06/22/16 12:09 66 06/22/16 11:46 06/22/16 09:50 Nasal Cannula 4.0 06/20/16 21:18 36 Intake and Output 06/21/16 06/21/16 06/22/16 15:00 23:00 07:00 Intake Total 950 ml Output Total 2000 ml Balance -1050 ml Exam GENERAL: This is a morbidly obese 65-year-old female patient sitting in a chair in no apparent distress. HEENT: Head normocephalic and atraumatic. Eyes: Anicteric sclerae. Conjunctivae clear. Nasal septum is midline. Oral mucosa is moist. NECK: Obese. Supple. RESPIRATORY: Bilaterally diminished breath sounds. Use of accessory muscles for respiration. Bilateral fine rales. CARDIOVASCULAR: S1, S2 heard. Irregularly irregular rhythm. ABDOMEN: Soft and nontender. Bowel sounds positive in all 4 quadrants. GENITOURINARY: Deferred. EXTREMITIES: No cyanosis. Bilateral lower extremity 2+ pitting edema. Peripheral pulses palpable. NEUROLOGIC: Cranial nerves II through XII are grossly intact. The patient is awake, alert, and oriented. Results Result Diagram: 06/22/16 0720 06/22/16 0720 Results 24 hrs Laboratory Tests Test 06/21/16 17:04 06/21/16 22:27 06/22/16 01:32 06/22/16 07:20 Bedside Glucose 102 309 H 238 H White Blood Count 13.1 H Red Blood Count 4.37 Hemoglobin 11.9 L Hematocrit 40.7 Mean Corpuscular Volume 93.1 Mean Corpuscular Hemoglobin 27.2 L Mean Corpuscular Hemoglobin Concent 29.2 L Red Cell Distribution Width 18.8 H Platelet Count 441 H Mean Platelet Volume 9.2 Neutrophils % 72.1 Lymphocytes % 17.5 Monocytes % 6.2 Eosinophils % 1.5 Basophils % 0.3 Nucleated Red Blood Cells % 0.0 Neutrophils # 9.4 H Lymphocytes # 2.3 Monocytes # 0.8 Eosinophils # 0.2 Basophils # 0.0 Nucleated Red Blood Cells # 0.0 Sodium Level 138 Potassium Level 4.4 Chloride Level 88 L Carbon Dioxide Level 38 H Anion Gap 16 Blood Urea Nitrogen 20 Creatinine 0.89 Glucose Level 145 Calcium Level 9.1 Magnesium Level 2.0 Test 06/22/16 07:42 06/22/16 11:31 Bedside Glucose 158 196 Medications Medications Current Medications Lorazepam (Ativan) 0.5 mg Q6H PRN IV ANXIETY Last administered on 06/14/16t 21: 23; Admin Dose 0.5 MG; Start 06/11/16 at 06:00 Ondansetron HCl (Zofran Tab) 4 mg Q6H PRN PO NAUSEA AND/OR VOMITING; Start at 06:00 Metoclopramide HCl (Reglan) 10 mg Q6H PRN IV NAUSEA AND/OR VOMITING; Start at 06:00 Nitroglycerin (Nitroglycerin (Sl Tab) 0.4 Mg) 1 tab Q5M PRN SL CHEST PAIN; Start 06/11/16 at 06:00 Acetaminophen (Tylenol Tab) 650 mg Q6H PRN PO PAIN LEVEL 1-3 OR FEVER Last administered on 06/16/16 08:44; Admin Dose 650 MG; Start 06/11/16 at 06:00 Acetaminophen/ Hydrocodone Bitart ([place] (5/325)) 1 tab Q6H PRN PO PAIN LEVEL 4 -6; Start 06/11/16 at 06:00 Morphine Sulfate (morphine) 2 mg Q4H PRN IV PAIN LEVEL 7-10 Last administered on 06/22/16 04:11; Admin Dose 2 MG; Start 06/11/16 at 06:00 Famotidine (Pepcid) 20 mg Q12 PO Last administered on 06/22/16 08:09; Admin Dose 20 MG; Start 06/11/16 at 09:00 Atorvastatin Calcium (Lipitor) 40 mg HS PO Last administered on 06/21/16 20:52 ; Admin Dose 40 MG; Start 06/11/16 at 21:00 Digoxin (Digoxin) 0.25 mg DAILY@13 PO Last administered on 06/22/16 12:13; Admin Dose 0.25 MG; Start 06/11/16 at 13:00 Diltiazem HCl (Cardizem Cd) 240 mg DAILY PO Last administered on 06/22/16 08:11 ; Admin Dose 240 MG; Start 06/11/16 at 09:00 Metoprolol Tartrate (Lopressor) 25 mg BID PO Last administered on 06/22/16 12: 13; Admin Dose 25 MG; Start 06/11/16 at 09:00 Salmeterol Xinafoate/ Fluticasone (Advair 250/50 Diskus) 1 inh BID INH Last administered on 06/22/16 08:11; Admin Dose 1 INH; Start 06/11/16 at 09:00 Spironolactone (Aldactone) 25 mg DAILY PO Last administered on 06/22/16 08:09; Admin Dose 25 MG; Start 06/11/16 at 09:00 Miscellaneous Information 1 ea NOTE XX ; Start 06/11/16 at 08:00 Glucose (Glutose) 15 gm Q15M PRN PO DECREASED GLUCOSE; Start 06/11/16 at 08:00 Glucose (Glutose) 22.5 gm Q15M PRN PO DECREASED GLUCOSE; Start 06/11/16 at 08: 00 Dextrose (D50w Syringe) 25 ml Q15M PRN IV DECREASED GLUCOSE; Start 06/11/16 at 08:00 Dextrose (D50w Syringe) 50 ml Q15M PRN IV DECREASED GLUCOSE; Start 06/11/16 at 08:00 Glucagon (Glucagen) 1 mg Q15M PRN IM DECREASED GLUCOSE; Start 06/11/16 at 08:00 Glucose (Glutose) 15 gm Q15M PRN BUCCAL DECREASED GLUCOSE; Start 06/11/16 at 08 :00 Diagnostic Test (Pha) (Accu-Chek) 1 ea 02 XX Last administered on 06/22/16 01: 34; Admin Dose 1 EA; Start 06/12/16 at 02:00 Ferrous Gluconate (Fergon) 325 mg BID PO Last administered on 06/22/16 08:09; Admin Dose 325 MG; Start 06/12/16 at 21:00 Insulin Glargine (Lantus) 36 unit QHS SC Last administered on 06/21/16 22:33; Admin Dose 36 UNIT; Start 06/12/16 at 21:00 Guaifenesin (Mucinex) 600 mg BID PO Last administered on 06/22/16 08:09; Admin Dose 600 MG; Start 06/15/16 at 10:00 Zolpidem Tartrate (Ambien) 10 mg HS PRN PO INSOMNIA; Start 06/15/16 at 22:30 Potassium Chloride (Klor-Con 20) 20 meq DAILY PO Last administered on 06/22/16 08:08; Admin Dose 20 MEQ; Start 06/17/16 at 09:00 Apixaban (Eliquis) 5 mg BID PO Last administered on 06/22/16 08:08; Admin Dose 5 MG; Start 06/18/16 at 21:00 KELLY LANDERS NP Jun 22, 2016 13:30
[2016-06-22] MEDS: ATORVASTATIN 40 MG TAB PO SCH (21:39)
[2016-06-22] MEDS: INSULIN GLARGINE [LANtus] 3 ML PEN SC SCH (22:40)
[2016-06-23] MEDS: ACCU-CHEK XX SCH (01:18)
[2016-06-23 05:17] LABS: ADD SCAN DIFF NO
[2016-06-23] MEDS: BUMETANIDE 1 MG TAB PO SCH ×2 (05:27→17:34)
[2016-06-23 05:30] LABS: BASOPHILS % 0.3 % (0.0-2.0); EOSINOPHILS # 0.2 10^3/ul (0.0-0.5); EOSINOPHILS % 1.4 % (0.0-7.0); HEMATOCRIT 38.7 % (37.0-47.0); HEMOGLOBIN 11.5 g/dl (12.0-16.0); LYMPHOCYTES # 2.1 10^3/ul (0.8-2.9); LYMPHOCYTES % 16.2 % (15.0-51.0); MEAN CORPUSCULAR HEMOGLOBIN 27.4 pg (29.0-33.0); MEAN CORPUSCULAR HGB CONC 29.7 g/dl (32.0-37.0); MEAN CORPUSCULAR VOLUME 92.4 fl (82.0-101.0); MONOCYTE # 0.7 10^3/ul (0.3-0.9); MONOCYTES % 5.5 % (0.0-11.0); NEUTROPHIL # 9.7 10^3/ul (1.6-7.5); NEUTROPHILS % 74.5 % (39.0-77.0); PLATELET COUNT 395 10^3/UL (140-415); RED BLOOD COUNT 4.19 10^6/ul (4.20-5.40); RED CELL DISTRIBUTION WIDTH 18.3 % (11.5-14.5)
[2016-06-23 05:53] LABS: POTASSIUM 4.6 mmol/L (3.5-5.1)
[2016-06-23 05:56] LABS: CREATININE 0.93 mg/dl (0.44-1.00)
[2016-06-23 05:57] LABS: CALCIUM 9.3 mg/dl (8.4-10.2)
[2016-06-23 07:43] VITALS: BP 94/53; RESP 18
[2016-06-23] MEDS: METOPROLOL 25 MG TAB PO SCH ×2 (09:00→09:26)
[2016-06-23] MEDS: GUAIFENESIN LA 600 MG TABSR PO SCH (09:00)
[2016-06-23] MEDS: DILTIAZEM (CD) 240 MG CAP PO SCH ×2 (09:00→09:25)
[2016-06-23] MEDS: INSULIN ASPART [NOVOLOG] 3 ML PEN SC SCH ×6 (09:23→17:36)
[2016-06-23] MEDS: SALMETEROL/FLUTICASONE 250/50 INHA INH SCH (09:25)
[2016-06-23] MEDS: APIXABAN 5 MG TABLET PO SCH (09:25)
[2016-06-23] MEDS: FERROUS GLUCONATE (EC) 325 MG TAB PO SCH (09:25)
[2016-06-23] MEDS: POTASSIUM CHLORIDE (SR) 20 MEQ TAB PO SCH (09:25)
[2016-06-23] MEDS: SPIRONOLACTONE 25 MG TAB PO SCH (09:25)
[2016-06-23] MEDS: FAMOTIDINE 20 MG TAB PO SCH (09:26)
--- NOTE | 2016-06-23 12:57 | CONS ---
Date/Time of Note Date/Time of Note DATE: 06/23/16 TIME: 12:56 Consult Date/Type/Reason Admit Date/Time Jun 11, 2016 at 14:17 Initial Consult Date 06/12/16 Type of Consultation: Pulmonary Subjective Patient sleeping this morning comfortable at rest no acute distress Objective Vital Signs Date Time Temp Pulse Resp B/P Pulse Ox O2 Delivery O2 Flow Rate FiO2 06/23/16 08:00 Nasal Cannula 4.0 06/23/16 07:43 97.6 82 18 94/53 98 06/20/16 21:18 36 Intake and Output 06/22/16 06/22/16 06/23/16 15:00 23:00 07:00 Intake Total 50 ml 720 ml 480 ml Balance 50 ml 720 ml 480 ml Exam GENERAL: Moderately obese lady comfortable at rest no acute distress VITAL SIGNS: per chart NECK: Supple. No JVD or lymphadenopathy. CARDIAC EXAM: S1, S2. No added sounds or murmurs. CHEST: Diminished air entry both lung bases ABDOMEN: Soft, nontender. No guarding or rebound. EXTREMITIES: No cyanosis, clubbing or edema. NEUROLOGIC: Generalized weakness. No focal deficits. Results/Medications Result Diagram: 06/23/16 0451 06/23/16 0451 Results 24 hrs Laboratory Tests Test 06/22/16 17:03 06/22/16 20:48 06/23/16 01:04 06/23/16 04:51 Bedside Glucose 175 90 131 White Blood Count 13.0 H Red Blood Count 4.19 L Hemoglobin 11.5 L Hematocrit 38.7 Mean Corpuscular Volume 92.4 Mean Corpuscular Hemoglobin 27.4 L Mean Corpuscular Hemoglobin Concent 29.7 L Red Cell Distribution Width 18.3 H Platelet Count 395 Mean Platelet Volume 9.0 Neutrophils % 74.5 Lymphocytes % 16.2 Monocytes % 5.5 Eosinophils % 1.4 Basophils % 0.3 Nucleated Red Blood Cells % 0.0 Neutrophils # 9.7 H Lymphocytes # 2.1 Monocytes # 0.7 Eosinophils # 0.2 Basophils # 0.0 Nucleated Red Blood Cells # 0.0 Sodium Level 136 Potassium Level 4.6 Chloride Level 89 L Carbon Dioxide Level 37 H Anion Gap 15 Blood Urea Nitrogen 22 H Creatinine 0.93 Glucose Level 202 Calcium Level 9.3 Magnesium Level 2.0 Test 06/23/16 07:38 06/23/16 12:02 Bedside Glucose 178 130 Medications Current Medications Lorazepam (Ativan) 0.5 mg Q6H PRN IV ANXIETY Last administered on 06/14/16 21: 23; Admin Dose 0.5 MG; Start 06/11/16 at 06:00 Ondansetron HCl (Zofran Tab) 4 mg Q6H PRN PO NAUSEA AND/OR VOMITING; Start at 06:00 Metoclopramide HCl (Reglan) 10 mg Q6H PRN IV NAUSEA AND/OR VOMITING; Start at 06:00 Nitroglycerin (Nitroglycerin (Sl Tab) 0.4 Mg) 1 tab Q5M PRN SL CHEST PAIN; Start 06/11/16 at 06:00 Acetaminophen (Tylenol Tab) 650 mg Q6H PRN PO PAIN LEVEL 1-3 OR FEVER Last administered on 06/16/16 08:44; Admin Dose 650 MG; Start 06/11/16 at 06:00 Acetaminophen/ Hydrocodone Bitart ([place] (5/325)) 1 tab Q6H PRN PO PAIN LEVEL 4 -6; Start 06/11/16 at 06:00 Morphine Sulfate (morphine) 2 mg Q4H PRN IV PAIN LEVEL 7-10 Last administered on 06/22/16 20:47; Admin Dose 2 MG; Start 06/11/16 at 06:00 Famotidine (Pepcid) 20 mg Q12 PO Last administered on 06/23/16 09:26; Admin Dose 20 MG; Start 06/11/16 at 09:00 Atorvastatin Calcium (Lipitor) 40 mg HS PO Last administered on 06/22/16 21:39 ; Admin Dose 40 MG; Start 06/11/16 at 21:00 Digoxin (Digoxin) 0.25 mg DAILY@13 PO Last administered on 06/22/16 12:13; Admin Dose 0.25 MG; Start 06/11/16 at 13:00 Diltiazem HCl (Cardizem Cd) 240 mg DAILY PO Last administered on 06/22/16 08:11 ; Admin Dose 240 MG; Start 06/11/16 at 09:00 Metoprolol Tartrate (Lopressor) 25 mg BID PO Last administered on 06/22/16 21: 39; Admin Dose 25 MG; Start 06/11/16 at 09:00 Salmeterol Xinafoate/ Fluticasone (Advair 250/50 Diskus) 1 inh BID INH Last administered on 06/23/16 09:25; Admin Dose 1 INH; Start 06/11/16 at 09:00 Spironolactone (Aldactone) 25 mg DAILY PO Last administered on 06/23/16 09:25; Admin Dose 25 MG; Start 06/11/16 at 09:00 Miscellaneous Information 1 ea NOTE XX ; Start 06/11/16 at 08:00 Glucose (Glutose) 15 gm Q15M PRN PO DECREASED GLUCOSE; Start 06/11/16 at 08:00 Glucose (Glutose) 22.5 gm Q15M PRN PO DECREASED GLUCOSE; Start 06/11/16 at 08: 00 Dextrose (D50w Syringe) 25 ml Q15M PRN IV DECREASED GLUCOSE; Start 06/11/16 at 08:00 Dextrose (D50w Syringe) 50 ml Q15M PRN IV DECREASED GLUCOSE; Start 06/11/16 at 08:00 Glucagon (Glucagen) 1 mg Q15M PRN IM DECREASED GLUCOSE; Start 06/11/16 at 08:00 Glucose (Glutose) 15 gm Q15M PRN BUCCAL DECREASED GLUCOSE; Start 06/11/16 at 08 :00 Diagnostic Test (Pha) (Accu-Chek) 1 ea 02 XX Last administered on 06/22/16 01: 34; Admin Dose 1 EA; Start 06/12/16 at 02:00 Ferrous Gluconate (Fergon) 325 mg BID PO Last administered on 06/23/16 09:25; Admin Dose 325 MG; Start 06/12/16 at 21:00 Insulin Glargine (Lantus) 36 unit QHS SC Last administered on 06/22/16 22:40; Admin Dose 36 UNIT; Start 06/12/16 at 21:00 Guaifenesin (Mucinex) 600 mg BID PO Last administered on 06/22/16 21:39; Admin Dose 600 MG; Start 06/15/16 at 10:00 Zolpidem Tartrate (Ambien) 10 mg HS PRN PO INSOMNIA; Start 06/15/16 at 22:30 Potassium Chloride (Klor-Con 20) 20 meq DAILY PO Last administered on 06/23/16 09:25; Admin Dose 20 MEQ; Start 06/17/16 at 09:00 Apixaban (Eliquis) 5 mg BID PO Last administered on 06/23/16 09:25; Admin Dose 5 MG; Start 06/18/16 at 21:00 Assessment/Plan Chief Complaint/Hosp Course Assessment 1. Acute on chronic hypoxemic respiratory failure 2. Hypoxemia likely secondary to combination of diastolic dysfunction and bronchospasm, clinically improved 3. Probable underlying obstructive sleep apnea 4. Hyponatremia questionable SIADH Recommendations 1 steroid taper 2 continue cardiac recommendations 3. Diuretics for home 4. Continue bronchodilators Disposition Discharge planning okay from pulmonary standpoint Problems: OSMANI LUIS MD, [facility] Jun 23, 2016 12:57
[2016-06-23 13:00] VITALS: BP 107/55; PULSE 87; RESP 18
[2016-06-23] MEDS: DIGOXIN 0.25 MG TAB PO SCH (13:05)
--- NOTE | 2016-06-23 15:17 | PDOCDIS ---
Discharge Instructions DIAGNOSIS Discharge Diagnosis: COPD exacerbation CONDITION Patient Condition: Stable HOME CARE INSTRUCTIONS: Special Diet: 1800 DM 2gNa FOLLOW UP/APPOINTMENTS Appointments Mendoza Drake MD Specialty: Pulmonary Medicine Office Address: [address] [place], [place] [id number] Office OTHER ORDERS: Other Orders: 1. Activities as tolerated. 2. Take medications as per prescription. 3. Take a low-cholesterol, carbohydrate controlled diet. 4. Follow-up with your primary care physician in 2 weeks. 5. Follow-up with the oil and gas field technician (Dr. Drake) in 2 weeks. Please call for appointment. KELLY LANDERS NP Jun 23, 2016 15:17
[2016-06-23] MEDS ORDERED: BUME1TAB18 PO (15:23)
[2016-06-23] MEDS ORDERED: DIGO250T6 PO (15:23)
[2016-06-23] MEDS ORDERED: ATOR40TA68 PO (15:23)
[2016-06-23] MEDS ORDERED: DILT240C79 PO (15:23)
[2016-06-23] MEDS ORDERED: LANT3I SC (15:26)
[2016-06-23] MEDS ORDERED: NOVO3I SC (15:26)
--- NOTE | 2016-06-23 19:02 | DS ---
DATE OF ADMISSION: 06/11/2016 DATE OF DISCHARGE: 06/23/2016 FINAL DIAGNOSES 1. Zgiop-hh-apydoct respiratory failure, hypoxic and hypercapnic. 2. Gdrao-bh-mvmfcsu diastolic heart failure. 3. Large left-sided pleural effusion, status post thoracentesis. 4. Healthcare-associated pneumonia. 5. Atrial fibrillation. 6. Pulmonary hypertension. 7. Essential hypertension. 8. Type 2 diabetes mellitus. 9. Dyslipidemia. 10. Chronic obstructive pulmonary disease with chronic hypoxia. 11. Hypochromic anemia with underlying iron deficiency. 13. Morbid obesity. CONSULTATIONS: 1. Jered Talley MD, Cardiology. 2. Edson Elaine MD, Pulmonology. 3. Mendoza Drake MD, Neurology. 4. Jamie Pimentel MD, Pulmonology. 5. Cheo Laws MD, Cardiology. HOSPITAL COURSE: This is a 65-year-old female with multiple comorbidities, who came to the emergency room with a chief complaint of dyspnea with intermittent cough. The patient denied any syncope, presyncope, chest pain, nausea, vomiting , abdominal pain, diarrhea, or dysuria. The patient normally uses 4 liters of oxygen via nasal cannula at home. In the emergency room, the patient's chest x- ray showed a large left-sided pleural effusion with underlying atelectasis/ consolidation. Provided the patient's history of present illness, the diagnostic findings and the comorbidities, a clinical decision was made to admit the patient to inpatient setting to have her further evaluated. The patient was admitted to inpatient telemetry floor. A cardiology consult and a pulmonary oncology consult was called on this patient. The patient was started on appropriate diuretics. She was maintained on inhaled bronchodilators and supplemental oxygen. The patient underwent a left thoracentesis on 06/16/2016 with drainage of 650 mL of clear yellow fluid. For unclear reasons, this fluid was not sent for any analysis. Nevertheless, the patient's respiratory distress and pleural effusion improved after thoracentesis. The patient was treated for underlying healthcare-associated pneumonia. The patient had no evidence of any septic shock. The patient has underlying hwemc-sm-fymidvv diastolic heart failure. The patient was being followed by Cardiology and the patient's cardiac medications were adjusted by Cardiology. The patient has underlying atrial fibrillation. The patient's heart rate was controlled. The patient was maintained on anticoagulation with Eliquis for stroke prophylaxis. The patient was also maintained on Cardizem for rate control. The patient has underlying pulmonary hypertension, as evidenced by a PA pressure of 45 mmHg as per 2D echocardiogram on 11/16/2015. The patient was maintained on supplemental oxygen. The patient has underlying history of essential hypertension. The patient's antihypertensives were adjusted to obtain optimal blood pressure control. The patient also has underlying type 2 diabetes mellitus. The patient's hemoglobin A1c was 8.8. The patient's insulin dosing was adjusted multiple times to obtain optimal blood sugar control. The patient has underlying dyslipidemia. She was placed on statins for the same. She has underlying chronic obstructive pulmonary disease with chronic hypoxia and hypercapnia, dependent on home oxygen. The patient was maintained on inhaled bronchodilators. The patient had no evidence of any COPD exacerbation that required steroids. The patient was found to have hypochromic anemia. The patient's H and H remained stable. The patient's iron panel showed iron deficiency. The patient was maintained on iron supplements for the same. The patient had a very slow progress in her symptomatology. The patient continued to use high levels of oxygen, and the patient had desaturation with minimal exertion. The patient was seen and evaluated by Physical Therapy. At one point in time, there was a plan to refer the patient to [facility]. However, the patient refused this. Meanwhile, the patient improved gradually, and the patient is stable to be discharged home. DISCHARGE DISPOSITION/PLAN: The patient will be discharged home today. The patient was instructed to resume activities as tolerated. The patient was told to take medications as per her prescription. Patient was instructed to take a low-cholesterol, carbohydrate-controlled diet. She was instructed to follow up with her primary care physician in 2 weeks. She was instructed to follow up with Dr. Drake in 2 weeks and please call for appointment. [facility] was arranged for home physical therapy evaluation. The patient verbalized understanding of her discharge instructions. CONDITION AT DISCHARGE: Stable. DISCHARGE MEDICATIONS: 1. Atorvastatin 40 mg p.o. at bedtime. 2. Bumex 1 mg p.o. b.i.d. 3. Digoxin 0.25 mg p.o. daily. 4. Cardizem CD 240 mg p.o. daily. 5. NovoLog insulin 20 units subcutaneously with meals. 6. Lantus insulin 36 units subcutaneously at bedtime. 7. Eliquis 5 mg p.o. b.i.d. 8. Atorvastatin 40 mg p.o. at bedtime. 9. Digoxin 0.25 mg p.o. daily. 10. Diltiazem 240 mg p.o. daily. 11. Xopenex 1.25 mg at bedtime and q. 4 hours p.r.n. shortness of breath. 12. Lopressor 25 mg p.o. b.i.d. 13. Potassium chloride 20 mEq p.o. daily. 14. Advair Diskus 250/50 one inhalation b.i.d. 15. Aldactone 25 mg p.o. daily. PERTINENT LABORATORY DATA AND PROCEDURES: 1. Thoracentesis on 06/16/2016 with drainage of 650 mL of clear fluid. 2. Latest chest x-ray: Improved appearance of the lungs and small pleural effusions, cardiomegaly, and atherosclerosis. 3. Latest CBC: WBC 13, hemoglobin 11.5, hematocrit 30.7, platelet count 396. 4. Latest BMP: Sodium 136, potassium 4.6, chloride 89, carbon dioxide 30, anion gap 15, BUN 22, creatinine 0.93, glucose 202, calcium 9, magnesium 2. 5. Hemoglobin A1c 8.8 6. Fasting lipid panel: Triglycerides 155, total cholesterol 162, LDL 93, AST 38. 7. Serum iron panel: Iron 25, TIBC 389, iron saturation 8, ferritin 98.5. At this time, I we would like to thank all the consultants for seeing the patient and providing clinical recommendations. The case and management of this patient was fully discussed with Dr. Tsang. Approximately 40 minutes were spent on coordinating discharge on this patient. KELLY TSANG MD, AM/KIKE Conf#: [id number] DID#: [id number] MTDD
== END 2016-06-23 18:11 | disposition home health service (06) | DRG 291 ==
LOC: E/R 01:15 → TEL 14:17 → PP2 06-23 00:23
PROVIDERS: ADMIT Family Medicine; ATTEND Family Medicine
PROC: 0W9B3ZZ Drainage of Left Pleural Cavity, Percutaneous Approach (ICD-10-PCS; principal; 2016-06-16)
DX: I11.0 Hypertensive heart disease with heart failure (principal); J96.22 Acute and chronic respiratory failure with hypercapnia; J96.21 Acute and chronic respiratory failure with hypoxia; J18.9 Pneumonia, unspecified organism; J90 Pleural effusion, not elsewhere classified; I27.2 Other secondary pulmonary hypertension; Z68.41 Body mass index [BMI] 40.0-44.9, adult; Z99.81 Dependence on supplemental oxygen; J44.0 Chronic obstructive pulmonary disease with (acute) lower respiratory infection; E87.1 Hypo-osmolality and hyponatremia; I50.33 Acute on chronic diastolic (congestive) heart failure; E11.9 Type 2 diabetes mellitus without complications; I48.91 Unspecified atrial fibrillation; I48.2 Chronic atrial fibrillation; E78.5 Hyperlipidemia, unspecified; E11.65 Type 2 diabetes mellitus with hyperglycemia; D50.9 Iron deficiency anemia, unspecified; E66.01 Morbid (severe) obesity due to excess calories; Z85.3 Personal history of malignant neoplasm of breast; Z92.21 Personal history of antineoplastic chemotherapy; Z92.3 Personal history of irradiation; Z87.891 Personal history of nicotine dependence; Z79.01 Long term (current) use of anticoagulants
CPT/HCPCS: 32555; 36415; 71010; 80048; 80061; 80162; 81003; 82550; 82553; 82728; 82962; 83036; 83540; 83735; 83880; 84100; 84484; 85025; 85610; 85730; 93005; 94640; 94664; 96374; 97116; 97162; 97530; J0692; J1650; J1815; J1940; J1956; J2060; J2270

== ENCOUNTER 2016-07-23 01:57 | Inpatient (IN) | payer MEDICARE, OTHER ==
[~2016-07-23] VITALS: Ht 170.2 cm; Wt 121.1 kg
[2016-07-23] VITALS (11 sets, daily range): BP systolic 109–141; BP diastolic 57–70; PULSE 80–107; RESP 16–20; TEMP 98; Ht 170.2 cm; Wt 121.1 kg
[~2016-07-23 01:57] MED LIST changes: +DIGO250T6 PO
[2016-07-23] MEDS ORDERED: GLIM4TAB PO (02:48)
[2016-07-23] MEDS ORDERED: MULTI PO (02:49)
[2016-07-23] MEDS ORDERED: MTF1000T PO (02:49)
[2016-07-23] MEDS ORDERED: IBUP-1542 PO (02:50)
[2016-07-23] MEDS ORDERED: ALBUTEROL 0.5% (NEB) 2.5 MG/0.5 ML AMP INH STA (02:51)
[2016-07-23] MEDS ORDERED: METHYLPREDNISOLONE 125 MG INJ IV STA (02:51)
[2016-07-23] MEDS ORDERED: IPRATROPIUM (NEB) 0.5 MG/2.5 ML AMP INH STA (02:51)
[2016-07-23] MEDS ORDERED: SOD CHLORIDE 0.9% 500 ML IV STA (02:51)
[2016-07-23 03:30] LABS: ADD SCAN DIFF NO
[2016-07-23 03:41] LABS: BASOPHILS % 0.2 % (0.0-2.0); EOSINOPHILS # 0.1 10^3/ul (0.0-0.5); EOSINOPHILS % 0.7 % (0.0-7.0); HEMATOCRIT 35.9 % (37.0-47.0); HEMOGLOBIN 11.4 g/dl (12.0-16.0); LYMPHOCYTES # 2.2 10^3/ul (0.8-2.9); LYMPHOCYTES % 13.4 % (15.0-51.0); MEAN CORPUSCULAR HEMOGLOBIN 28.9 pg (29.0-33.0); MEAN CORPUSCULAR HGB CONC 31.8 g/dl (32.0-37.0); MEAN CORPUSCULAR VOLUME 90.9 fl (82.0-101.0); MEAN PLATELET VOLUME 11.4 fl (7.4-10.4); MONOCYTE # 1.2 10^3/ul (0.3-0.9); MONOCYTES % 7.3 % (0.0-11.0); NEUTROPHIL # 12.5 10^3/ul (1.6-7.5); NEUTROPHILS % 77.7 % (39.0-77.0); PLATELET COUNT 228 10^3/UL (140-415); RED BLOOD COUNT 3.95 10^6/ul (4.20-5.40); WHITE BLOOD COUNT 16.1 10^3/ul (4.8-10.8)
[2016-07-23 03:44] LABS: CHLORIDE 89 mmol/L (97-110)
[2016-07-23 03:45] LABS: POTASSIUM 4.3 mmol/L (3.5-5.1); SODIUM 136 mmol/L (135-144)
[2016-07-23 03:47] LABS: CREATININE 0.89 mg/dl (0.44-1.00)
[2016-07-23 03:48] LABS: ANION GAP 19 (8-16); BLOOD UREA NITROGEN 21 mg/dl (7-20); CALCIUM 9.2 mg/dl (8.4-10.2); CARBON DIOXIDE 32 mmol/L (21-31); GLUCOSE 301 mg/dl (70-220)
--- NOTE | 2016-07-23 03:52 | RADRPT ---
PROCEDURE: Chest. CLINICAL INDICATION: Chest pain. TECHNIQUE: Single frontal view of the chest was obtained. COMPARISON: 07/01/2016. FINDINGS: The cardiac silhouette is enlarged. The aortic arch is calcified. There is moderate left-sided ple ural effusion with underlying atelectasis/consolidation. There is no pneumothorax. IMPRESSION: Moderate left-sided pleural effusion with underlying atelectasis/consolidation, increased compared w ith the prior study. Cardiomegaly and aortic atherosclerosis. .Farhan Smith MD, MD Date Time Electronically viewed and signed by .Farhan Smith MD, on 07/23/2016 03:52 .T/
[2016-07-23] MEDS ORDERED: CEFEPIME 2GM/50 ML (PMX) 50 ML IVPB STA (04:06)
[2016-07-23] MEDS ORDERED: VANCOMYCIN 1 GM (PMX) 250 ML IVPB STA (04:06)
[2016-07-23 04:11] LABS: TROPONIN-I < 0.012 ng/ml (0.00-0.12)
--- NOTE | 2016-07-23 04:15 | ERA ---
ER Documentation Chief Complaint Date/Time DATE: 07/23/16 TIME: 04:10 Chief Complaint Shortness of breath. COPD on 5L O2 at 87%. HPI This is a 65-year-old female who presents to the emergency room for evaluation of shortness of breath. This patient does have a history of COPD, CHF, and does state that she is normally on home oxygen at 4 L. On evaluation today this patient did have a pulse ox of 86% on 2 L nasal cannula. She does state that she has a dry cough, denies any fevers or chills associated with this. She states that she has been using her breathing treatment at home with only minimal relief and came to the ER today for evaluation. She denies being on any antibiotics at home ROS All systems reviewed and are negative except as per history of present illness. Medications Home Meds Active Scripts Digoxin* (Lanoxin*) 0.25 Mg Tablet, 0.25 MG PO DAILY for 30 Days, TAB Prov:KELLY LANDERS NP 06/23/16 Bumetanide* (Bumetanide*) 1 Mg Tablet, 1 MG PO BID for 30 Days, TAB Prov:KELLY LANDERS NP 06/23/16 Salmeterol Xinaf/Fluticasone* (Advair*) 250-50 Diskus Inhaler, 1 INH INHALATION BID, #1 INHALER Prov:BIBI TSANG 05/09/16 [Ipratropium 0.02% (Neb)] 0.5 MG/2.5 ML NEBU No Conflict Check, 0.5 MG HHN Q4H RESP THERAPY Y for SHORTNESS OF BREATH, #30 VIAL 1 Refill Prov:BIBI TSANG 05/09/16 Levalbuterol Hcl* (Xopenex*) 1.25 Mg/0.5 Ml Vial.neb, 1.25 MG HHN Q4H RESP THERAPY Y for SHORTNESS OF BREATH, #30 VIAL 1 Refill Prov:BIBI TSANG 05/09/16 Metoprolol Tartrate* (Lopressor*) 25 Mg Tab, 25 MG PO BID for 30 Days, TAB Prov:BIBI TSANG. 05/09/16 Spironolactone* (Aldactone*) 25 Mg Tablet, 25 MG PO DAILY for 30 Days, TAB Prov:DWAYNE CARTER MD 03/21/16 Digoxin* (Digitek*) 250 Mcg Tablet, 0.25 MG PO DAILY@13 for 30 Days, TAB Prov:DWAYNE CARTER MD 03/21/16 Diltiazem Hcl* (Cardizem CD*) 240 Mg Cap.sr.24h, 240 MG PO DAILY for 60 Days, # 60 CAP 2 Refills Prov:JOB MG 01/02/16 Apixaban* (Eliquis*) 5 Mg Tablet, 5 MG PO BID for 60 Days, TAB 3 Refills Prov:JOB MG 01/02/16 Reported Medications Ibuprofen* (Ibuprofen*) 600 Mg Tablet, 600 MG PO Q8 Y for PAIN, TAB 07/23/16 Multivitamins* (Theragran*) 1 Tab Tab, 1 TAB PO DAILY, TAB 07/23/16 Metformin* (Glucophage*) 1,000 Mg Tablet, 1000 MG PO WITH BREAKFAST DINNE, #30 TAB 07/23/16 Glimepiride* (Glimepiride*) 4 Mg Tablet, 4 MG PO WITH BREAKFAST, TAB TAKE 1 TABLET BY MOUTH ONCE DAILY 07/23/16 Atorvastatin* (Atorvastatin*) 40 Mg Tablet, 40 MG PO HS, TAB 08/28/14 Discontinued Scripts Insulin Aspart* (Novolog Insulin Pen*) 100 Unit/Ml Soln, 20 UNIT SC WITH MEALS for 30 Days Prov:KELLY LANDERS NP 06/23/16 Insulin Glargine* (Lantus*) 100 Unit/Ml Soln, 36 UNIT SC QHS for 30 Days Prov:KELLY LANDERS NP 06/23/16 Atorvastatin* (Atorvastatin*) 40 Mg Tablet, 40 MG PO QHS, #30 TAB Prov:KELLY LANDERS NP 06/23/16 Potassium Chloride (Potassium Chloride) 20 Meq Packet, 20 MEQ PO DAILY for 30 Days, PACKET Prov:BIBI TSANG 05/09/16 Allergies Allergies: Coded Allergies: No Known Allergies (Verified Allergy, Unknown, 07/23/16) PMhx/Soc History of Surgery: Yes (hx of cyst removal , hysterectomy, tubal ligation, breast CA (R)) Anesthesia Reaction: No Hx 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 Disorder: No Hx Respiratory Disorders: Yes (COPD) Hx Cardiac Disorders: Yes (High blood presure, High cholesterol ) Hx Psychiatric Problems: No Hx Miscellaneous Medical Probl: Yes (see PT note) Hx Alcohol Use: No Hx Substance Use: No Hx Tobacco Use: Yes Smoking Status: Former smoker Physical Exam Vitals Vital Signs Date Time Temp Pulse Resp B/P Pulse Ox O2 Delivery O2 Flow Rate FiO2 07/23/16 03:01 87 22 94 Nasal Cannula 2.0 07/23/16 02:25 Nasal Cannula 3 07/23/16 02:01 98.3 100 26 123/70 86 Physical Exam INITIAL VITAL SIGNS: Reviewed by me GENERAL: The patient is well developed and appropriate for usual state of health in no apparent distress HEENT: Dry mucous membranes, pupils equal, round, and reactive to light. EOMI. There is no scleral icterus. NECK: C-spine is soft and supple, there is no meningismus. There is no cervical lymphadenopathy. LUNGS: Coarse breath sounds bilaterally with rales auscultated in the right and left lower lobes HEART: Tachycardic, no murmurs, clicks, rubs or gallops. ABDOMEN: Soft, non-tender, non-distended. There are bowel sounds in all four quadrants. No rebound or guarding. EXTREMITIES: There is no peripheral cyanosis, but 1+ pitting edema in the bilateral lower extremities NEUROLOGICAL: The patient moves all four extremities with 5/5 strength. Cranial nerves II - XII are intact. Normal gait. Alert and oriented SKIN: There is no apparent rash or petechiae. HEME/LYMPHATIC: There is no evidence of excessive bruising or lymphedema. PSYCHIATRIC: The patient does not appear anxious or depressed. Result Diagram: 07/23/16 0225 Results 24 hrs Laboratory Tests Test 07/23/16 02:25 White Blood Count 16.110^3/ul Red Blood Count 3.9510^6/ul Hemoglobin 11.4g/dl Hematocrit 35.9% Mean Corpuscular Volume 90.9fl Mean Corpuscular Hemoglobin 28.9pg Mean Corpuscular Hemoglobin Concent 31.8g/dl Red Cell Distribution Width 18.0% Platelet Count 37870^3/UL Mean Platelet Volume 11.4fl Neutrophils % 77.7% Lymphocytes % 13.4% Monocytes % 7.3% Eosinophils % 0.7% Basophils % 0.2% Nucleated Red Blood Cells % 0.0/100WBC Neutrophils # 12.510^3/ul Lymphocytes # 2.210^3/ul Monocytes # 1.210^3/ul Eosinophils # 0.110^3/ul Basophils # 0.010^3/ul Nucleated Red Blood Cells # 0.010^3/ul Current Medications Medications (Trade) Dose Ordered Sig/Westley Route PRN Reason Start Time Stop Time Status Last Admin Dose Admin Sodium Chloride (NS) 500 ml @ 500 mls/hr Q1H STAT IV 07/23/16 02:51 07/23/16 03:50 DC 07/23/16 03:04 Albuterol (Proventil 0.5% (Neb)) 10 mg ONCE STAT INH 07/23/16 02:51 07/23/16 02:52 DC 07/23/16 03:01 Ipratropium [place] (Atrovent 0.02% (Neb)) 1 mg ONCE STAT INH 07/23/16 02:51 07/23/16 02:52 DC 07/23/16 03:01 Methylprednisolone Sodium Succinate 125 mg 125 mg ONCE STAT IV 07/23/16 02:51 07/23/16 02:52 DC 07/23/16 03:04 Vancomycin HCl 250 ml @ 125 mls/hr ONCE STAT IVPB 07/23/16 04:06 07/23/16 06:05 Cefepime HCl (Maxipime 2gm/50 ml (Pmx)) 50 ml @ 100 mls/hr ONCE STAT IVPB 07/23/16 04:06 07/23/16 04:35 Procedures/MDM EKG: Rate/Rhythm: [Normal Sinus Rhythm] QRS, ST, T-waves: [No changes consistent w/ acute ischemia] Impression: [No evidence of ischemia or arrhythmia] Chest X-ray 1V Interpreted by me: Soft Tissue: Left-sided pleural effusion with left lower consolidation Bones: No acute abnormalities Mediastinum/Cardiac Silhouette/Lungs: [No acute abnormalities] This 65-year-old female presents to the emergency room for evaluation of cough, shortness of breath. When I evaluated this patient she did have slight rales on my examination. I did obtain lab work and x-ray which shows a left lobe consolidation, and a large left pleural effusion. This patient does have a leukocytosis and given her hypoxia and new findings on x-ray she does meet sepsis criteria. This patient was not given 30 cc/kg of IV normal saline due to the fact that she does have CHF with a large left pleural effusion. The patient was started on vancomycin and cefepime after blood cultures were obtained. This patient will be placed in for admission on the telemetry floor under the care of Dr. Fuchs Critical Care: Excluding all billable procedures Time: 36 minutes Treatments/Evaluations: Close monitoring and treatment of unstable vital signs, cardiorespiratory, and neurologic status, while maintaining tight balance of fluid, respiratory, and cardiac interventions. Departure Diagnosis: Primary Impression: Sepsis Additional Impressions: Left lower lobe pneumonia Respiratory failure with hypoxia Condition: Stable MOISES WYNN DO July 23, 2016 04:15
[2016-07-23] MEDS ORDERED: ONDANSETRON 4 MG INJ IV PRN ×2 (04:30)
[2016-07-23] MEDS ORDERED: NACL 0.9% 3 ML SYG IV SCH (04:30)
[2016-07-23] MEDS ORDERED: ACETAMINOPHEN 325 MG TAB PO PRN (04:30)
--- NOTE | 2016-07-23 04:37 | HP ---
Date/Time of Note Date/Time of Note DATE: 07/23/16 TIME: 04:36 Assessment/Plan VTE Prophylaxis VTE Prophylaxis Intervention: other (Eliquis) Lines/Catheters IV [facility]from [facility]): Peripheral IV Central line still needed: No Urinary Cath still in place: No Assessment/Plan Chief Complaint/Hosp Course This is a 65-year-old female being admitted to telemetry floor for: #1 acute respiratory failure with hypoxia: This likely appears to be a combination of CHF and pneumonia. Chest x-ray shows a left-sided pleural effusion and there also is evidence of possible consolidation. In the setting of patient having an elevated white blood cell count. We will treat for both CHF and pneumonia. Maintain O2 saturation above 92% with supplemental oxygen. #2 CHF exacerbation. Patient does report a lot of salt use at home. Did discuss with the patient regarding decreasing salt intake. Will limit her fluid intake to 1200 cc daily. Lasix 40 mg IV twice daily. Strict I's and O' s. Daily weights. Hold beta-lam right now and restart when she is compensated. Will hold home Bumex. #3 pneumonia: Patient has elevated white blood cell count though she denies fevers chest x-ray shows consolidation. She states she has had antibiotic use within the last 90 days. At the current time will treat her with Vanco and cefepime. I am hesitant to start fluoroquinolone at this time secondary to the patient's A. fib and CHF exacerbation. #4 atrial fibrillation: At the current time she is relatively rate controlled with insurance rater showing heart rate less than 110. Will continue her beta -lam once her heart failure is compensated. Continue Cardizem, Eliquis. #5 hypertension: Continue home hypertensive medications #6 COPD: Continue inhalers #7 hyperlipidemia: Continue statin #8 DVT and GI prophylaxis: Currently on Eliquis, H2 lam. Problems: HPI/ROS Admit Date/Time Admit Date/Time 07/23/16 Hx of Present Illness This is a 65-year-old female who presents to the emergency room for evaluation of shortness of breath. This patient does have a history of COPD, CHF, and does state that she is normally on home oxygen at 4 L. On evaluation today this patient did have a pulse ox of 86% on 2 L nasal cannula. She does state that she has a dry cough, denies any fevers or chills associated with this. She states that she has been using her breathing treatment at home with only minimal relief and came to the ER today for evaluation. She denies being on any antibiotics at home Allergies: NKDA Medications: See MAY KIMBERLY Const: As per HPI Eyes : No pain discharge or redness or change in visual acuity ENT: No pain, sore throat, congestion, congestion, dysphagia or discharge Respiratory: As per HPI Cardiovascular: As per HPI GI : no change in appetite, abdominal pain, nausea, vomiting, diarrhea, constipation, or change in the color his stool Genitourinary: No dysuria, hematuria, flank pain , discharge or CVA tenderness Musculoskeletal: No joint pain, back pain, neck pain, restricted range of motion in neck or joints Skin: No rash, bruising or hives Neuro: No headache, dizziness, syncope, seizure, focal weakness Endocrine: No polyuria, polydipsia, temperature intolerance Psych: No hallucination, depression, anxiety or suicidal ideation PMH/Family/Social Past Medical History CHF, COPD, diabetes mellitus, hypertension, atrial fibrillation, history of right breast carcinoma had chemotherapy in 2008 Past Surgical History total hysterectomy, tubal ligation, hernia repair, R.breast biopsy Past Surgical Hx: other Family History Significant Family History: no pertinent family hx Social History Alcohol Use: occasionally Smoking Status: Former smoker Drug Use: none Exam/Review of Systems Vital Signs Vitals Vital Signs Date Time Temp Pulse Resp B/P Pulse Ox O2 Delivery O2 Flow Rate FiO2 07/23/16 03:01 87 22 94 Nasal Cannula 2.0 07/23/16 02:01 98.3 123/70 Exam Exam General: Obese female with improvement in her respiratory distress The patient is alert oriented -3 HEENT: Atraumatic, normocephalic. The pupils are equal, round and reactive. Extraocular motor are intact Neck: Supple with full range of motion. No rigidity or meningismus Chest: Nontender Lungs: Decreased air movement, left-sided crackles at the lower lung field Heart: Irregularly irregular Abdomen: Soft , nontender, nondistended , bowel sounds are present. No guarding no rebound tenderness , No masses or organomegaly. No costovertebral temporal angle mass Extremities: Trace lower extremity edema bilaterally Neurologic: Normal mental status, speech normal, cranial nerves II through XII are intact, motor and sensory are intact, no focal weakness Additional Comments chest xray MPRESSION: Moderate left-sided pleural effusion with underlying atelectasis/consolidation, increased compared with the prior study. Cardiomegaly and aortic atherosclerosis. Telemetry monitoring shows atrial fibrillation at 110 bpm Labs Result Diagram: 07/23/16 0225 07/23/16 0225 WILLIE DENG July 23, 2016 04:36
[2016-07-23] MEDS ORDERED: IPRATROPIUM (NEB) 0.5 MG/2.5 ML AMP NEB PRN (05:30)
[2016-07-23] MEDS ORDERED: VANCOMYCIN IV PER PHARMACY XX SCH (05:30)
[2016-07-23] MEDS ORDERED: DILTIAZEM 25 MG INJ IV ONE (05:30)
[2016-07-23] MEDS: FUROSEMIDE 40 MG INJ IV SCH ×2 (06:42→17:09)
[2016-07-23] MEDS: SALMETEROL/FLUTICASONE 250/50 INHA INH SCH ×2 (09:30→20:37)
[2016-07-23] MEDS: FAMOTIDINE 20 MG TAB PO SCH ×2 (09:31→20:36)
[2016-07-23] MEDS: MULTIVITAMINS THERAPEUTIC TAB PO SCH (09:31)
[2016-07-23] MEDS: APIXABAN 5 MG TABLET PO SCH (09:31)
[2016-07-23] MEDS: DILTIAZEM (CD) 240 MG CAP PO SCH (09:32)
[2016-07-23] MEDS: SPIRONOLACTONE 25 MG TAB PO SCH (09:32)
[2016-07-23] MEDS ORDERED: VANCOMYCIN 1 GM in NS 250 ML IVPB SCH (12:00)
[2016-07-23] MEDS: DIGOXIN 0.25 MG TAB PO SCH (12:30)
--- NOTE | 2016-07-23 12:34 | CONS ---
DATE OF ADMISSION: 07/23/2016 DATE OF CONSULTATION: 07/23/2016 TYPE OF CONSULTATION: Pulmonary. REASON FOR CONSULTATION: Shortness of breath. Thank you, Dr. Martinez, for this consultation. HISTORY OF PRESENT ILLNESS: This is a 65-year-old lady, well known to me, with multiple medical pro blems, with recurrent hypoxemic respiratory failure secondary to a combination of congestive cardiac failure and chronic obstructive pulmonary disease exacerbation, who at this time presented with inc reasing shortness of breath, orthopnea and PND, and found on admission to have a left pleural effusi on. She underwent a thoracentesis for this on her most recent admission several weeks ago. PAST MEDICAL HISTORY: 1. Congestive cardiac failure. 2. Chronic hypoxemic and hypercapnic respiratory failure. 3. History of morbid obesity. 4. Obstructive sleep apnea. MEDICATIONS: Per chart. ALLERGIES: NONE. SOCIAL HISTORY: Nonsmoker, no alcohol, no history of drug use. FAMILY HISTORY: Noncontributory. SYSTEMS REVIEW: A 12-point review of systems was negative, other than that mentioned above. PHYSICAL EXAMINATION: A well-nourished, well-developed lady, comfortable at rest, in no acute distre ss. Currently afebrile. LABORATORY: White count 16.1, hemoglobin 11.4, platelets of 228. BNP 510. Chest x-ray shows left effusion with volume loss. Last BUN 21, creatinine 0.89. BNP 510. IMPRESSION AND PLAN: 1. Likely healthcare-associated pneumonia. 2. The patient is currently on Eliquis anticoagulation, which will need to be held. 3. The patient will require left thoracentesis. 4. Continue diuretics. 5. DVT and GI prophylaxis. Dictated By: OSMANI MARX/KIKE Conf#: [id number] DID#: [id number]
[2016-07-23 13:08] LABS: INR 1.12; PROTIME 14.4 Sec (12.2-14.2); PT RATIO 1.1
[2016-07-23 13:09] LABS: PARTIAL THROMBOPLASTIN TIME 36.6 Sec (25.0-35.0); THROMBIN TIME 15.5 SEC (13.8-19.1)
[2016-07-23] MEDS: CEFEPIME 2GM/50 ML (PMX) 50 ML IVPB SCH ×2 (15:22→20:36)
[2016-07-23] MEDS ORDERED: GLUCOSE GEL 15 GRAM TUBE PO PRN ×2 (17:30)
[2016-07-23] MEDS ORDERED: GLUCAGON 1 MG INJ IM PRN (17:30)
[2016-07-23] MEDS ORDERED: GLUCOSE GEL 15 GRAM TUBE BUCCAL PRN (17:30)
[2016-07-23] MEDS ORDERED: DEXTROSE 50% 50 ML SYRINGE IV PRN ×2 (17:30)
[2016-07-23] MEDS: INSULIN ASPART [NOVOLOG] 3 ML PEN SC SCH ×3 (18:50→20:36)
[2016-07-23] MEDS ORDERED: INSULIN GLARGINE [LANtus] 3 ML PEN SC SCH (20:00)
[2016-07-23 20:14] LABS: POTASSIUM 4.7 mmol/L (3.5-5.1)
[2016-07-23 20:17] LABS: CREATININE 0.91 mg/dl (0.44-1.00)
[2016-07-23 20:18] LABS: CALCIUM 9.2 mg/dl (8.4-10.2)
[2016-07-23] MEDS ORDERED: INSULIN ASPART [NOVOLOG] 3 ML PEN SC ONE ×2 (20:30→22:30)
[2016-07-23] MEDS: ATORVASTATIN 40 MG TAB PO SCH (20:36)
[2016-07-23] MEDS: SOD CHLORIDE 0.9% 1,000 ML IV SCH (22:26)
[2016-07-23] MEDS: VANCOMYCIN 1 GM in NS 250 ML IVPB SCH (22:27)
[2016-07-24] VITALS (12 sets, daily range): BP systolic 101–126; BP diastolic 59–72; PULSE 70–140; RESP 15–20
[2016-07-24 00:50] LABS: CALCIUM 8.6 mg/dl (8.4-10.2); CREATININE 0.76 mg/dl (0.44-1.00); POTASSIUM 4.1 mmol/L (3.5-5.1)
[2016-07-24 00:51] LABS: ADD UMIC NO; URINE BILIRUBIN (Dip) NEGATIVE (NEGATIVE); URINE BLOOD (Dip) NEGATIVE (NEGATIVE); URINE COLOR LT. YELLOW (YELLOW); URINE GLUCOSE (Dip) >=1000 % (NEGATIVE); URINE KETONES (Dip) NEGATIVE (NEGATIVE); URINE LEUKOCYTE ESTERASE (Dip) NEGATIVE (NEGATIVE); URINE NITRITE (Dip) NEGATIVE (NEGATIVE); URINE TOTAL PROTEIN (Dip) NEGATIVE (NEGATIVE); URINE UROBILINOGEN (Dip) 0.2 E.U./dL (0.1-1.0)
[2016-07-24] MEDS ORDERED: INSULIN ASPART [NOVOLOG] 3 ML PEN SC ONE ×3 (01:30→18:00)
[2016-07-24] MEDS: ACCU-CHEK XX SCH (02:04)
[2016-07-24 05:55] LABS: ADD SCAN DIFF NO
[2016-07-24 05:57] LABS: HEMATOCRIT 35.5 % (37.0-47.0); LYMPHOCYTES # 1.1 10^3/ul (0.8-2.9); LYMPHOCYTES % 7.5 % (15.0-51.0); MEAN CORPUSCULAR HEMOGLOBIN 27.9 pg (29.0-33.0); MEAN CORPUSCULAR VOLUME 90.1 fl (82.0-101.0); MEAN PLATELET VOLUME 9.7 fl (7.4-10.4); MONOCYTE # 1.1 10^3/ul (0.3-0.9); MONOCYTES % 7.5 % (0.0-11.0); NEUTROPHIL # 12.1 10^3/ul (1.6-7.5); NEUTROPHILS % 84.4 % (39.0-77.0); PLATELET COUNT 243 10^3/UL (140-415); RED BLOOD COUNT 3.94 10^6/ul (4.20-5.40); RED CELL DISTRIBUTION WIDTH 17.9 % (11.5-14.5); WHITE BLOOD COUNT 14.4 10^3/ul (4.8-10.8)
[2016-07-24] MEDS: FUROSEMIDE 40 MG INJ IV SCH ×2 (06:07→17:49)
[2016-07-24 06:43] LABS: CALCIUM 9.3 mg/dl (8.4-10.2); CREATININE 0.77 mg/dl (0.44-1.00); MAGNESIUM 2.2 mg/dl (1.7-2.5); POTASSIUM 4.6 mmol/L (3.5-5.1)
[2016-07-24 06:46] LABS: ALBUMIN 3.9 g/dl (3.3-4.9); ALBUMIN/GLOBULIN RATIO 1.08; BILIRUBIN,INDIRECT 0.3 mg/dl (0-1.1); BILIRUBIN,TOTAL 0.3 mg/dl (0.2-1.3); CALCIUM 9.5 mg/dl (8.4-10.2); CREATININE 0.77 mg/dl (0.44-1.00); POTASSIUM 4.5 mmol/L (3.5-5.1); TOTAL PROTEIN 7.5 g/dl (6.1-8.1)
[2016-07-24] MEDS: DILTIAZEM (CD) 240 MG CAP PO SCH (08:35)
[2016-07-24] MEDS: FAMOTIDINE 20 MG TAB PO SCH ×2 (08:35→20:40)
[2016-07-24] MEDS: MULTIVITAMINS THERAPEUTIC TAB PO SCH (08:35)
[2016-07-24] MEDS: SPIRONOLACTONE 25 MG TAB PO SCH (08:35)
[2016-07-24] MEDS: CEFEPIME 2GM/50 ML (PMX) 50 ML IVPB SCH ×2 (08:35→20:40)
[2016-07-24] MEDS: SALMETEROL/FLUTICASONE 250/50 INHA INH SCH ×2 (08:36→20:41)
[2016-07-24] MEDS: INSULIN ASPART [NOVOLOG] 3 ML PEN SC SCH ×7 (08:37→20:59)
--- NOTE | 2016-07-24 11:21 | PN ---
Date/Time of Note Date/Time of Note DATE: 07/24/16 TIME: 11:21 Assessment/Plan VTE Prophylaxis VTE Prophylaxis Intervention: other (Factor Xa inhibitors.) Lines/Catheters IV C[facility]ter Type (from [facility]): Peripheral IV Urinary Cath still in place: No Assessment/Plan Chief Complaint/Hosp Course 1. Acute on chronic respiratory failure, hypoxic and hypercapnic, most probably secondary to chronic obstructive pulmonary disease along with a combination of congestive heart failure exacerbation (diastolic dysfunction). Continue inhaled bronchodilators. Continue supplemental oxygen. Being followed by pulmonary. 2. Large left-sided pleural effusion with underlying atelectasis/ consolidation. The patient is on antibiotics. Ultrasound-guided thoracentesis ordered. 3. Healthcare-associated pneumonia. Continue antibiotics. No evidence of any septic shock. 4. Acute on chronic diastolic heart failure. Continue cardiac medications. 5. Atrial fibrillation. Rate controlled. Continue rate control. On factor Xa inhibitors for anticoagulation. 6. Pulmonary hypertension. PA pressure of 45 mmHg as per 2D echocardiogram on 11/16/2015. Continue supplemental oxygen. 7. Type 2 diabetes mellitus. Continue sliding scale insulin along with Lantus insulin and premeal insulin. 8. Dyslipidemia. Continue statins. 9. Essential hypertension. Continue antihypertensives. 10. Chronic obstructive pulmonary disease with chronic hypoxia, dependent on home oxygen. Continue maintenance inhalers. 11. Hypochromic anemia. Monitor the H and H closely. 12. Fluid, electrolytes, and nutrition. Continue carbohydrate controlled low cholesterol diet. 13. Deep venous thrombosis prophylaxis. Eliquis. 14. Gastrointestinal prophylaxis. Histamine 2 receptor blockers. PLAN: Continue antibiotics Await thoracentesis. Adjust insulin to obtain blood sugar control. The case was discussed with Dr. Cortés. Problems: Subjective 24 Hr Interval Summary Free Text/Dictation Patient's blood sugars have been uncontrolled over last night. Currently it is better controlled. Exam/Review of Systems Vital Signs Vitals Vital Signs Date Time Temp Pulse Resp B/P Pulse Ox O2 Delivery O2 Flow Rate FiO2 07/24/16 10:46 140 07/24/16 08:00 Nasal Cannula 4.0 07/24/16 07:11 98.3 20 110/59 92 Intake and Output 07/23/16 07/23/16 07/24/16 15:00 23:00 07:00 Intake Total 1325 ml 845 ml Balance 1325 ml 845 ml Exam GENERAL: This is a morbidly obese 65-year-old female patient lying in bed in no apparent distress. HEENT: Head normocephalic and atraumatic. Eyes: Anicteric sclerae. Conjunctivae clear. Nasal septum is midline. Oral mucosa is moist. NECK: Obese. Supple. RESPIRATORY: Bilaterally diminished breath sounds. Use of accessory muscles for respiration. Bilateral fine rales. CARDIOVASCULAR: S1, S2 heard. Irregularly irregular rhythm. ABDOMEN: Soft and nontender. Bowel sounds positive in all 4 quadrants. GENITOURINARY: Deferred. EXTREMITIES: No cyanosis. Bilateral lower extremity 2+ pitting edema. Peripheral pulses palpable. NEUROLOGIC: Cranial nerves II through XII are grossly intact. The patient is awake, alert, and oriented. Results Result Diagram: 07/24/16 0540 07/24/1640 Results 24 hrs Laboratory Tests Test 07/23/16 12:32 07/23/16 14:15 07/23/16 17:46 07/23/16 18:50 Platelet Count 224 Prothrombin Time 14.4 H Prothrombin Time Ratio 1.1 INR International Normalized Ratio 1.12 Activated Partial Thromboplast Time 36.6 H 38.4 H Thrombin Time 15.5 Bedside Glucose > 595 *H Sodium Level 131 L Potassium Level 4.7 Chloride Level 83 L Carbon Dioxide Level 31 Anion Gap 22 H Blood Urea Nitrogen 25 H Creatinine 0.91 Glucose Level 625 #*H Calcium Level 9.2 Test 07/23/16 20:17 07/23/16 22:07 07/23/16 23:40 07/24/16 00:05 Bedside Glucose 548 *H 461 *H 404 *H Urine Color LT. YELLOW Urine Clarity CLEAR Urine pH 6.0 Urine Specific [place] <=1.005 L Urine Ketones NEGATIVE Urine Nitrite NEGATIVE Urine Bilirubin NEGATIVE Urine Urobilinogen 0.2 E.U./dL Urine Leukocyte Esterase NEGATIVE Urine Hemoglobin NEGATIVE Urine Glucose >=1000 Urine Total Protein NEGATIVE Test 07/24/16 00:27 07/24/16 01:12 07/24/16 02:28 07/24/16 03:39 Sodium Level 133 L Potassium Level 4.1 Chloride Level 93 #L Carbon Dioxide Level 31 Anion Gap 13 # Blood Urea Nitrogen 26 H Creatinine 0.76 Glucose Level 361 #H Calcium Level 8.6 Bedside Glucose 359 H 315 H 228 H Test 07/24/16 05:40 07/24/16 06:04 07/24/16 08:08 White Blood Count 14.4 H Red Blood Count 3.94 L Hemoglobin 11.0 L Hematocrit 35.5 L Mean Corpuscular Volume 90.1 Mean Corpuscular Hemoglobin 27.9 L Mean Corpuscular Hemoglobin Concent 31.0 L Red Cell Distribution Width 17.9 H Platelet Count 243 Mean Platelet Volume 9.7 Neutrophils % 84.4 H Lymphocytes % 7.5 L Monocytes % 7.5 Eosinophils % 0.0 Basophils % 0.0 Nucleated Red Blood Cells % 0.0 Neutrophils # 12.1 H Lymphocytes # 1.1 Monocytes # 1.1 H Eosinophils # 0.0 Basophils # 0.0 Nucleated Red Blood Cells # 0.0 Sodium Level 135 Potassium Level 4.5 Chloride Level 94 L Carbon Dioxide Level 33 H Anion Gap 13 Blood Urea Nitrogen 27 H Creatinine 0.77 Glucose Level 215 Calcium Level 9.5 Phosphorus Level 3.0 Magnesium Level 2.2 Total Bilirubin 0.3 Direct Bilirubin 0.00 Indirect Bilirubin 0.3 Aspartate Amino Transf (AST/SGOT) 18 Alanine Aminotransferase (ALT/SGPT) 37 Alkaline Phosphatase 129 H Troponin I < 0.012 Total Protein 7.5 Albumin 3.9 Globulin 3.60 H Albumin/Globulin Ratio 1.08 Bedside Glucose 193 235 H Medications Medications Current Medications Ondansetron HCl (Zofran Inj) 4 mg Q6H PRN IV NAUSEA AND/OR VOMITING; Start 07/23 at 04:30 Famotidine 20 mg 20 mg Q12 PO Last administered on 07/24/16 08:35; Admin Dose 20 MG; Start 07/23/16 at 09:00 Cefepime HCl (Maxipime 2gm/50 ml (Pmx)) 50 ml @ 100 mls/hr Q12 IVPB Last administered on 07/24/16 08:35; Admin Dose 100 MLS/HR; Start 07/23/16 at 13:00 Apixaban (Eliquis) 5 mg BID PO Last administered on 07/23/16 09:31; Admin Dose 5 MG; Start 07/23/16 at 09:00; Status Future Hold Atorvastatin Calcium (Lipitor) 40 mg HS PO Last administered on 07/23/16 20:36 ; Admin Dose 40 MG; Start 07/23/16 at 21:00 Digoxin (Digoxin) 0.25 mg DAILY@13 PO Last administered on 07/23/16 12:30; Admin Dose 0.25 MG; Start 07/23/16 at 13:00 Diltiazem HCl (Cardizem Cd) 240 mg DAILY PO Last administered on 07/24/16 08:35 ; Admin Dose 240 MG; Start 07/23/16 at 09:00 Multivitamins Therapeutic (Theragran) 1 tab DAILY PO Last administered on 08:35; Admin Dose 1 TAB; Start 07/23/16 at 09:00 Salmeterol Xinafoate/ Fluticasone (Advair 250/50 Diskus) 1 inh BID INH Last administered on 07/24/16 08:36; Admin Dose 1 INH; Start 07/23/16 at 09:00 Spironolactone 25 mg 25 mg DAILY PO Last administered on 07/24/16 08:35; Admin Dose 25 MG; Start 07/23/16 at 09:00 Vancomycin HCl (Vancocin) 250 ml @ 125 mls/hr Q12H IVPB Last administered on 22:27; Admin Dose 125 MLS/HR; Start 07/23/16 at 23:00 Diagnostic Test (Pha) (Accu-Chek) 1 ea 02 XX Last administered on 07/24/16 02: 04; Admin Dose 1 EA; Start 07/24/16 at 02:00 Miscellaneous Information 1 ea NOTE XX ; Start 07/23/16 at 17:30 Glucose (Glutose) 15 gm Q15M PRN PO DECREASED GLUCOSE; Start 07/23/16 at 17:30 Glucose (Glutose) 22.5 gm Q15M PRN PO DECREASED GLUCOSE; Start 07/23/16 at 17:30 Dextrose (D50w Syringe) 25 ml Q15M PRN IV DECREASED GLUCOSE; Start 07/23/16 at 17:30 Dextrose (D50w Syringe) 50 ml Q15M PRN IV DECREASED GLUCOSE; Start 07/23/16 at 17:30 Glucagon (Glucagen) 1 mg Q15M PRN IM DECREASED GLUCOSE; Start 07/23/16 at 17:30 Glucose 15 gm 15 gm Q15M PRN BUCCAL DECREASED GLUCOSE; Start 07/23/16 at 17:30 Sodium Chloride (NS) 1,000 ml @ 50 mls/hr Q20H IV Last administered on t 22:26; Admin Dose 60 MLS/HR; Start 07/23/16 at 22:30 Insulin Glargine (Lantus) 40 unit DAILY@20 SC ; Start 07/24/16 at 20:00 KELLY LANDERS NP July 24, 2016 11:21
[2016-07-24] MEDS: VANCOMYCIN 1 GM in NS 250 ML IVPB SCH ×2 (11:53→23:26)
--- NOTE | 2016-07-24 12:09 | RADRPT ---
PROCEDURE: US Chest. CLINICAL INDICATION: Shortness of breath. TECHNIQUE: Ultrasound of the left hemithorax was performed in the axial and sagittal planes. COMPARISON: No prior study is available for comparison. FINDINGS: There is no left pleural effusion. Thoracentesis was not performed. IMPRESSION: 1. No left pleural effusion. Thoracentesis not performed. RPTAT: QQ .Raymond Palacios MD, MD Date Time Electronically viewed and signed by .Raymond Palacios MD, on 07/24/2016 13:30 .R/
--- NOTE | 2016-07-24 12:13 | RADRPT ---
PROCEDURE: XR Chest. CLINICAL INDICATION: Pneumonia and CHF. TECHNIQUE: Chest x-ray, single view. COMPARISON: 07/23/2016. FINDINGS: The heart is enlarged and unchanged in size. Aortic arch atherosclerotic calcification is present. A left pleural effusion is unchanged. Mild pulmonary vascular prominence is unchanged. Degenerati ve changes of the spine are observed. IMPRESSION: Left-sided pleural effusion, unchanged. Cardiomegaly and atherosclerosis with prominent pulmonary vasculature, unchanged. RPTAT: PP .Jane Kamara MD, MD Date Time Electronically viewed and signed by .Jane Kamara MD, on 07/24/2016 12:12 .T/
[2016-07-24] MEDS: DIGOXIN 0.25 MG TAB PO SCH (13:02)
[2016-07-24] MEDS: SOD CHLORIDE 0.9% 1,000 ML IV SCH (17:40)
[2016-07-24] MEDS: ATORVASTATIN 40 MG TAB PO SCH (20:40)
[2016-07-24] MEDS: INSULIN GLARGINE [LANtus] 3 ML PEN SC SCH (20:59)
[2016-07-25] VITALS (13 sets, daily range): BP systolic 111–131; BP diastolic 58–84; PULSE 60–108; RESP 15–20
[2016-07-25] MEDS: ACCU-CHEK XX SCH (02:00)
[2016-07-25] MEDS: FUROSEMIDE 40 MG INJ IV SCH (06:02)
[2016-07-25 07:36] LABS: ADD SCAN DIFF NO; BASOPHILS % 0.3 % (0.0-2.0); EOSINOPHILS # 0.1 10^3/ul (0.0-0.5); EOSINOPHILS % 0.8 % (0.0-7.0); HEMATOCRIT 38.5 % (37.0-47.0); HEMOGLOBIN 11.6 g/dl (12.0-16.0); LYMPHOCYTES # 2.4 10^3/ul (0.8-2.9); LYMPHOCYTES % 22.8 % (15.0-51.0); MEAN CORPUSCULAR HEMOGLOBIN 27.8 pg (29.0-33.0); MEAN CORPUSCULAR HGB CONC 30.1 g/dl (32.0-37.0); MEAN CORPUSCULAR VOLUME 92.3 fl (82.0-101.0); MEAN PLATELET VOLUME 10.4 fl (7.4-10.4); MONOCYTE # 0.7 10^3/ul (0.3-0.9); MONOCYTES % 6.9 % (0.0-11.0); NEUTROPHIL # 7.3 10^3/ul (1.6-7.5); NEUTROPHILS % 68.3 % (39.0-77.0); PLATELET COUNT 274 10^3/UL (140-415); RED BLOOD COUNT 4.17 10^6/ul (4.20-5.40); RED CELL DISTRIBUTION WIDTH 18.5 % (11.5-14.5); WHITE BLOOD COUNT 10.6 10^3/ul (4.8-10.8)
[2016-07-25 07:55] LABS: MAGNESIUM 1.9 mg/dl (1.7-2.5); PHOSPHORUS 3.6 mg/dl (2.5-4.9)
[2016-07-25 07:56] LABS: POTASSIUM 3.7 mmol/L (3.5-5.1)
[2016-07-25 07:59] LABS: CREATININE 0.82 mg/dl (0.44-1.00)
[2016-07-25 08:00] LABS: CALCIUM 8.6 mg/dl (8.4-10.2)
[2016-07-25] MEDS: INSULIN ASPART [NOVOLOG] 3 ML PEN SC SCH ×7 (08:36→21:00)
[2016-07-25] MEDS: SALMETEROL/FLUTICASONE 250/50 INHA INH SCH ×2 (09:04→21:14)
[2016-07-25] MEDS: SPIRONOLACTONE 25 MG TAB PO SCH (09:04)
[2016-07-25] MEDS: MULTIVITAMINS THERAPEUTIC TAB PO SCH (09:05)
[2016-07-25] MEDS: DILTIAZEM (CD) 240 MG CAP PO SCH (09:05)
[2016-07-25] MEDS: FAMOTIDINE 20 MG TAB PO SCH ×2 (09:05→21:14)
[2016-07-25] MEDS: CEFEPIME 2GM/50 ML (PMX) 50 ML IVPB SCH ×2 (09:50→21:14)
[2016-07-25] MEDS: VANCOMYCIN 1 GM in NS 250 ML IVPB SCH ×3 (11:00→23:10)
--- NOTE | 2016-07-25 12:10 | CONS ---
Date/Time of Note Date/Time of Note DATE: 07/25/16 TIME: 12:08 Assessment/Plan Assessment/Plan Additional Assessment/Plan Assessment recommendations; next 1. Patient admitted with hypoxemia with significant clinical improvement. 2. Left lower lobe pneumonia. 3. Underlying morbid obesity. 4. CHF. 5. Patient getting volume contracted. Change Lasix to 40 mg IV daily. Continue current antibiotics and other supportive measures. Consultation Date/Type/Reason Admit Date/Time July 23, 2016 at 04:09 Initial Consult Date Type of Consultation: Pulmonary 24 HR Interval Summary Free Text/Dictation Patient condition stable. She is reporting decreased shortness of breath. Denies any cough, chest pain, wheezing, sputum production. General exam; elderly woman, appears quite overweight, currently in no distress. Ambulating in the room. Exam/Review of Systems Vital Signs Vitals Vital Signs Date Time Temp Pulse Resp B/P Pulse Ox O2 Delivery O2 Flow Rate FiO2 07/25/16 12:05 100 07/25/16 11:40 98.0 20 119/66 98 07/25/16 10:52 Nasal Cannula 4.0 Intake and Output 07/24/16 07/24/16 07/25/16 15:00 23:00 07:00 Intake Total 2075 ml 805 ml Balance 2075 ml 805 ml Exam HEENT exam is; supple neck, JVD difficult to see because of short neck. Patient has a multiple missing teeth. Pharynx is clear. Pupils are midsize reactive to light. No thyromegaly. No neck bruits. No neck masses. Chest examination; clear to auscultation. S1-S2 audible, no murmurs. Regular rhythm. Abdomen examination; soft, protuberant. No organomegaly. Nontender. Bowel sounds audible. Extremity examination; no peripheral edema. Pulses 1+ laterally. 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 Results Result Diagram: 07/25/16 0500 07/25/16 0553 Results 24 hrs Laboratory Tests Test 07/24/16 17:45 07/24/16 20:39 07/24/16 22:09 07/25/16 01:55 Bedside Glucose 394 H 294 H 227 H Vancomycin Level Trough 11.7 Test 07/25/16 05:00 07/25/16 05:53 07/25/16 08:04 07/25/16 11:46 White Blood Count 10.6 # Red Blood Count 4.17 L Hemoglobin 11.6 L Hematocrit 38.5 Mean Corpuscular Volume 92.3 Mean Corpuscular Hemoglobin 27.8 L Mean Corpuscular Hemoglobin Concent 30.1 L Red Cell Distribution Width 18.5 H Platelet Count 274 Mean Platelet Volume 10.4 Neutrophils % 68.3 Lymphocytes % 22.8 Monocytes % 6.9 Eosinophils % 0.8 Basophils % 0.3 Nucleated Red Blood Cells % 0.0 Neutrophils # 7.3 Lymphocytes # 2.4 Monocytes # 0.7 Eosinophils # 0.1 Basophils # 0.0 Nucleated Red Blood Cells # 0.0 Sodium Level 139 Potassium Level 3.7 Chloride Level 93 L Carbon Dioxide Level 33 H Anion Gap 17 H Blood Urea Nitrogen 31 H Creatinine 0.82 Glucose Level 198 Calcium Level 8.6 Phosphorus Level 3.6 Magnesium Level 1.9 Bedside Glucose 225 H 147 Medications Medications Current Medications Ondansetron HCl (Zofran Inj) 4 mg Q6H PRN IV NAUSEA AND/OR VOMITING; Start 07/23 at 04:30 Famotidine 20 mg 20 mg Q12 PO Last administered on 07/25/16 09:05; Admin Dose 20 MG; Start 07/23/16 at 09:00 Cefepime HCl (Maxipime 2gm/50 ml (Pmx)) 50 ml @ 100 mls/hr Q12 IVPB Last administered on 07/25/16 09:50; Admin Dose 100 MLS/HR; Start 07/23/16 at 13:00 Apixaban (Eliquis) 5 mg BID PO Last administered on 07/23/16 09:31; Admin Dose 5 MG; Start 07/23/16 at 09:00; Status Future Hold Atorvastatin Calcium (Lipitor) 40 mg HS PO Last administered on 07/24/16 20:40 ; Admin Dose 40 MG; Start 07/23/16 at 21:00 Digoxin (Digoxin) 0.25 mg DAILY@13 PO Last administered on 07/24/16 13:02; Admin Dose 0.25 MG; Start 07/23/16 at 13:00 Diltiazem HCl (Cardizem Cd) 240 mg DAILY PO Last administered on 07/25/16 09:05 ; Admin Dose 240 MG; Start 07/23/16 at 09:00 Multivitamins Therapeutic (Theragran) 1 tab DAILY PO Last administered on 09:05; Admin Dose 1 TAB; Start 07/23/16 at 09:00 Salmeterol Xinafoate/ Fluticasone (Advair 250/50 Diskus) 1 inh BID INH Last administered on 07/25/16 09:04; Admin Dose 1 INH; Start 07/23/16 at 09:00 Spironolactone 25 mg 25 mg DAILY PO Last administered on 07/25/16 09:04; Admin Dose 25 MG; Start 07/23/16 at 09:00 Vancomycin HCl (Vancocin) 250 ml @ 125 mls/hr Q12H IVPB Last administered on 23:26; Admin Dose 125 MLS/HR; Start 07/23/16 at 23:00 Diagnostic Test (Pha) (Accu-Chek) 1 ea 02 XX Last administered on 07/24/16 02: 04; Admin Dose 1 EA; Start 07/24/16 at 02:00 Miscellaneous Information 1 ea NOTE XX ; Start 07/23/16 at 17:30 Glucose (Glutose) 15 gm Q15M PRN PO DECREASED GLUCOSE; Start 07/23/16 at 17:30 Glucose (Glutose) 22.5 gm Q15M PRN PO DECREASED GLUCOSE; Start 07/23/16 at 17:30 Dextrose (D50w Syringe) 25 ml Q15M PRN IV DECREASED GLUCOSE; Start 07/23/16 at 17:30 Dextrose (D50w Syringe) 50 ml Q15M PRN IV DECREASED GLUCOSE; Start 07/23/16 at 17:30 Glucagon (Glucagen) 1 mg Q15M PRN IM DECREASED GLUCOSE; Start 07/23/16 at 17:30 Glucose 15 gm 15 gm Q15M PRN BUCCAL DECREASED GLUCOSE; Start 07/23/16 at 17:30 Sodium Chloride (NS) 1,000 ml @ 50 mls/hr Q20H IV Last administered on 22:26; Admin Dose 60 MLS/HR; Start 07/23/16 at 22:30 Insulin Glargine (Lantus) 40 unit DAILY@20 SC Last administered on 07/24/16 20: 59; Admin Dose 40 UNIT; Start 07/24/16 at 20:00 MAGALYS CHAPIN July 25, 2016 12:10
[2016-07-25] MEDS: DIGOXIN 0.25 MG TAB PO SCH (13:26)
[2016-07-25] MEDS: SOD CHLORIDE 0.9% 1,000 ML IV SCH (13:40)
--- NOTE | 2016-07-25 13:45 | PN ---
Date/Time of Note Date/Time of Note DATE: 07/25/16 TIME: 13:40 Assessment/Plan VTE Prophylaxis VTE Prophylaxis Intervention: other (Apixaban but on hold right now) Lines/Catheters IV [facility]ter Type (from [facility] Peripheral IV Urinary Cath still in place: No Assessment/Plan Chief Complaint/Hosp Course Assessment and plan 1. Acute on chronic respiratory failure with hypercapnia and hypoxia likely secondary to COPD and CHF exacerbation. Continue to supplement. Continue bronchodilators. On diuretic. 2. Large left-sided pleural effusion. No plan for thoracentesis at this time. Continue on diuretic medication 3. Healthcare associated pneumonia. Continue antibiotics 4. CHF. Continue optimization with cardiovascular medications 5. A. fib. Controlled at this time. Patient to be resumed on apixaban. Continue on digoxin 6. Pulmonary hypertension. Patient with history of pulmonary arterial pressure of 45 mmHg. Continue O2. Titrate down as tolerated. 7. Type 2 diabetes. Patient to be resumed on insulin regimen. Will adjust as needed 8. Dyslipidemia. Continue statin medication 9. Essential hypertension. Continue antihypertensives and adjust as needed 10. COPD. Patient resumed on O2. Titrate down as tolerated. Bronchodilators as needed. DVT prophylaxis: Apixaban Disposition and plan: Continue antibiotics. Await for clinical improvement of respiratory status. Discharged when medically stable and cleared by consultants Discussed plan of care with Problems: Subjective 24 Hr Interval Summary Free Text/Dictation Still reports having some shortness of breath when lying down. 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, nl mental status, nl speech Results Result Diagram: 07/25/16 0500 07/25/16 0553 Results 24 hrs Laboratory Tests Test 07/24/16 17:45 07/24/16 20:39 07/24/16 22:09 07/25/16 01:55 Bedside Glucose 394 H 294 H 227 H Vancomycin Level Trough 11.7 Test 07/25/16 05:00 07/25/16 05:53 07/25/16 08:04 07/25/16 11:46 White Blood Count 10.6 # Red Blood Count 4.17 L Hemoglobin 11.6 L Hematocrit 38.5 Mean Corpuscular Volume 92.3 Mean Corpuscular Hemoglobin 27.8 L Mean Corpuscular Hemoglobin Concent 30.1 L Red Cell Distribution Width 18.5 H Platelet Count 274 Mean Platelet Volume 10.4 Neutrophils % 68.3 Lymphocytes % 22.8 Monocytes % 6.9 Eosinophils % 0.8 Basophils % 0.3 Nucleated Red Blood Cells % 0.0 Neutrophils # 7.3 Lymphocytes # 2.4 Monocytes # 0.7 Eosinophils # 0.1 Basophils # 0.0 Nucleated Red Blood Cells # 0.0 Sodium Level 139 Potassium Level 3.7 Chloride Level 93 L Carbon Dioxide Level 33 H Anion Gap 17 H Blood Urea Nitrogen 31 H Creatinine 0.82 Glucose Level 198 Calcium Level 8.6 Phosphorus Level 3.6 Magnesium Level 1.9 Bedside Glucose 225 H 147 Medications Medications Current Medications Ondansetron HCl (Zofran Inj) 4 mg Q6H PRN IV NAUSEA AND/OR VOMITING; Start 07/23 at 04:30 Famotidine 20 mg 20 mg Q12 PO Last administered on 07/25/16 09:05; Admin Dose 20 MG; Start 07/23/16 at 09:00 Cefepime HCl (Maxipime 2gm/50 ml (Pmx)) 50 ml @ 100 mls/hr Q12 IVPB Last administered on 07/25/16 09:50; Admin Dose 100 MLS/HR; Start 07/23/16 at 13:00 Apixaban (Eliquis) 5 mg BID PO Last administered on 07/23/16 09:31; Admin Dose 5 MG; Start 07/23/16 at 09:00; Status Future Hold Atorvastatin Calcium (Lipitor) 40 mg HS PO Last administered on 07/24/16 20:40 ; Admin Dose 40 MG; Start 07/23/16 at 21:00 Digoxin (Digoxin) 0.25 mg DAILY@13 PO Last administered on 07/25/16 13:26; Admin Dose 0.25 MG; Start 07/23/16 at 13:00 Diltiazem HCl (Cardizem Cd) 240 mg DAILY PO Last administered on 07/25/16 09:05 ; Admin Dose 240 MG; Start 07/23/16 at 09:00 Multivitamins Therapeutic (Theragran) 1 tab DAILY PO Last administered on 09:05; Admin Dose 1 TAB; Start 07/23/16 at 09:00 Salmeterol Xinafoate/ Fluticasone (Advair 250/50 Diskus) 1 inh BID INH Last administered on 07/25/16 09:04; Admin Dose 1 INH; Start 07/23/16 at 09:00 Spironolactone 25 mg 25 mg DAILY PO Last administered on 07/25/16 09:04; Admin Dose 25 MG; Start 07/23/16 at 09:00 Vancomycin HCl (Vancocin) 250 ml @ 125 mls/hr Q12H IVPB Last administered on 13:25; Admin Dose 125 MLS/HR; Start 07/23/16 at 23:00 Diagnostic Test (Pha) (Accu-Chek) 1 ea 02 XX Last administered on 07/24/16 02: 04; Admin Dose 1 EA; Start 07/24/16 at 02:00 Miscellaneous Information 1 ea NOTE XX ; Start 07/23/16 at 17:30 Glucose (Glutose) 15 gm Q15M PRN PO DECREASED GLUCOSE; Start 07/23/16 at 17:30 Glucose (Glutose) 22.5 gm Q15M PRN PO DECREASED GLUCOSE; Start 07/23/16 at 17:30 Dextrose (D50w Syringe) 25 ml Q15M PRN IV DECREASED GLUCOSE; Start 07/23/16 at 17:30 Dextrose (D50w Syringe) 50 ml Q15M PRN IV DECREASED GLUCOSE; Start 07/23/16 at 17:30 Glucagon (Glucagen) 1 mg Q15M PRN IM DECREASED GLUCOSE; Start 07/23/16 at 17:30 Glucose 15 gm 15 gm Q15M PRN BUCCAL DECREASED GLUCOSE; Start 07/23/16 at 17:30 Sodium Chloride (NS) 1,000 ml @ 50 mls/hr Q20H IV Last administered on 22:26; Admin Dose 60 MLS/HR; Start 07/23/16 at 22:30 Insulin Glargine (Lantus) 40 unit DAILY@20 SC Last administered on 07/24/16 20: 59; Admin Dose 40 UNIT; Start 07/24/16 at 20:00 Furosemide (Lasix) 40 mg DAILY IV ; Start 07/26/16 at 09:00 EDUARDO GOLDSTEIN July 25, 2016 13:45
[2016-07-25] MEDS: ATORVASTATIN 40 MG TAB PO SCH (21:14)
[2016-07-25] MEDS: INSULIN GLARGINE [LANtus] 3 ML PEN SC SCH (21:23)
[2016-07-26] VITALS (12 sets, daily range): BP systolic 93–125; BP diastolic 52–65; PULSE 67–82; RESP 16–20
[2016-07-26] MEDS: ACCU-CHEK XX SCH (02:00)
[2016-07-26] MEDS: INSULIN ASPART [NOVOLOG] 3 ML PEN SC SCH ×7 (08:09→20:43)
[2016-07-26] MEDS: SALMETEROL/FLUTICASONE 250/50 INHA INH SCH ×2 (08:20→20:43)
[2016-07-26] MEDS: FAMOTIDINE 20 MG TAB PO SCH ×2 (08:20→20:44)
[2016-07-26] MEDS: SPIRONOLACTONE 25 MG TAB PO SCH (08:20)
[2016-07-26] MEDS: FUROSEMIDE 40 MG INJ IV SCH (08:20)
[2016-07-26] MEDS: MULTIVITAMINS THERAPEUTIC TAB PO SCH (08:20)
[2016-07-26] MEDS: CEFEPIME 2GM/50 ML (PMX) 50 ML IVPB SCH ×2 (08:21→20:43)
[2016-07-26] MEDS: DILTIAZEM (CD) 240 MG CAP PO SCH (08:21)
[2016-07-26] MEDS: SOD CHLORIDE 0.9% 1,000 ML IV SCH (09:40)
[2016-07-26] MEDS: VANCOMYCIN 1 GM in NS 250 ML IVPB SCH (10:58)
[2016-07-26] MEDS: DIGOXIN 0.25 MG TAB PO SCH (12:29)
--- NOTE | 2016-07-26 12:55 | CONS ---
Date/Time of Note Date/Time of Note DATE: 07/26/16 TIME: 12:54 Assessment/Plan Assessment/Plan Additional Assessment/Plan Assessment recommendations; next 1. Patient admitted for left lower lobe pneumonia with significant clinical improvement. With improving leukocytosis as well. 2. History of CHF, clinically compensated. 3. Underlying morbid obesity. Continue current treatment. Consultation Date/Type/Reason Admit Date/Time July 23, 2016 at 04:09 Type of Consultation: Pulmonary 24 HR Interval Summary Free Text/Dictation Patient's condition is improving. According to her shortness of breath is significantly improved compared to 2 days ago. Still complains of mild shortness of breath upon lying down. Denies any chest pain, fever, chills. General exam; elderly lady, awake alert currently in no distress. Eating lunch at bedside. Exam/Review of Systems Vital Signs Vitals Vital Signs Date Time Temp Pulse Resp B/P Pulse Ox O2 Delivery O2 Flow Rate FiO2 07/26/16 11:13 97.7 65 18 108/63 97 07/26/16 07:30 Nasal Cannula 4.0 Intake and Output 07/25/16 07/25/16 07/26/16 15:00 23:00 07:00 Intake Total 50 ml 1230 ml 900 ml Balance 50 ml 1230 ml 900 ml Exam HEENT examination; supple neck, no JVD. No lymphadenopathy. Midline trachea. No thyromegaly. Patient has multiple missing teeth. Pupils are small bilaterally. No neck masses. Chest exam is; improved breath sounds left lower lobe. Rest of the lung [place] are clear. S1-S2 audible, no murmurs. Regular rhythm. Abdomen exam is; soft, protuberant. No organomegaly. Nontender. Bowel sounds audible. Extremity examination; no peripheral edema. 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 Results Result Diagram: 07/25/16 0500 07/25/16 0553 Results 24 hrs Laboratory Tests Test 07/25/16 17:21 07/25/16 21:13 07/26/16 07:46 07/26/16 11:47 Bedside Glucose 215 145 179 190 Medications Medications Current Medications Ondansetron HCl (Zofran Inj) 4 mg Q6H PRN IV NAUSEA AND/OR VOMITING; Start 07/23 at 04:30 Famotidine 20 mg 20 mg Q12 PO Last administered on 07/26/16 08:20; Admin Dose 20 MG; Start 07/23/16 at 09:00 Cefepime HCl (Maxipime 2gm/50 ml (Pmx)) 50 ml @ 100 mls/hr Q12 IVPB Last administered on 07/26/16 08:21; Admin Dose 100 MLS/HR; Start 07/23/16 at 13:00 Apixaban (Eliquis) 5 mg BID PO Last administered on 07/23/16 09:31; Admin Dose 5 MG; Start 07/23/16 at 09:00; Status Future Hold Atorvastatin Calcium (Lipitor) 40 mg HS PO Last administered on 07/25/16 21:14 ; Admin Dose 40 MG; Start 07/23/16 at 21:00 Digoxin (Digoxin) 0.25 mg DAILY@13 PO Last administered on 07/26/16 12:29; Admin Dose 0.25 MG; Start 07/23/16 at 13:00 Diltiazem HCl (Cardizem Cd) 240 mg DAILY PO Last administered on 07/26/16 08:21 ; Admin Dose 240 MG; Start 07/23/16 at 09:00 Multivitamins Therapeutic (Theragran) 1 tab DAILY PO Last administered on 08:20; Admin Dose 1 TAB; Start 07/23/16 at 09:00 Salmeterol Xinafoate/ Fluticasone (Advair 250/50 Diskus) 1 inh BID INH Last administered on 07/26/16 08:20; Admin Dose 1 INH; Start 07/23/16 at 09:00 Spironolactone 25 mg 25 mg DAILY PO Last administered on 07/26/16 08:20; Admin Dose 25 MG; Start 07/23/16 at 09:00 Vancomycin HCl (Vancocin) 250 ml @ 125 mls/hr Q12H IVPB Last administered on 10:58; Admin Dose 125 MLS/HR; Start 07/23/16 at 23:00 Diagnostic Test (Pha) (Accu-Chek) 1 ea 02 XX Last administered on 07/24/16 02: 04; Admin Dose 1 EA; Start 07/24/16 at 02:00 Miscellaneous Information 1 ea NOTE XX ; Start 07/23/16 at 17:30 Glucose (Glutose) 15 gm Q15M PRN PO DECREASED GLUCOSE; Start 07/23/16 at 17:30 Glucose (Glutose) 22.5 gm Q15M PRN PO DECREASED GLUCOSE; Start 07/23/16 at 17:30 Dextrose (D50w Syringe) 25 ml Q15M PRN IV DECREASED GLUCOSE; Start 07/23/16 at 17:30 Dextrose (D50w Syringe) 50 ml Q15M PRN IV DECREASED GLUCOSE; Start 07/23/16 at 17:30 Glucagon (Glucagen) 1 mg Q15M PRN IM DECREASED GLUCOSE; Start 07/23/16 at 17:30 Glucose 15 gm 15 gm Q15M PRN BUCCAL DECREASED GLUCOSE; Start 07/23/16 at 17:30 Sodium Chloride (NS) 1,000 ml @ 50 mls/hr Q20H IV Last administered on 22:26; Admin Dose 60 MLS/HR; Start 07/23/16 at 22:30 Insulin Glargine (Lantus) 40 unit DAILY@20 SC Last administered on 07/25/16 21: 23; Admin Dose 40 UNIT; Start 07/24/16 at 20:00 Furosemide (Lasix) 40 mg DAILY IV Last administered on 07/26/16 08:20; Admin Dose 40 MG; Start 07/26/16 at 09:00 MAGALYS CHAPIN July 26, 2016 12:55
--- NOTE | 2016-07-26 17:53 | PN ---
Date/Time of Note Date/Time of Note DATE: 07/26/16 TIME: 17:50 Assessment/Plan VTE Prophylaxis VTE Prophylaxis Intervention: other (apixiban but on hold right now ) Lines/Catheters [facility] Saline Lock Urinary Cath still in place: No Assessment/Plan Chief Complaint/Hosp Course Assessment and plan 1. Acute on chronic respiratory failure with hypercapnia and hypoxia likely secondary to COPD and CHF exacerbation. Continue 02 supplement. Continue bronchodilators. On diuretic. improving 2. Large left-sided pleural effusion. No plan for thoracentesis at this time. Continue on diuretic medication 3. Healthcare associated pneumonia. Continue antibiotics 4. CHF. Continue optimization with cardiovascular medications 5. A. fib. Controlled at this time. Patient to be resumed on apixaban. Continue on digoxin. continue telemetry monitoring 6. Pulmonary hypertension. Patient with history of pulmonary arterial pressure of 45 mmHg. Continue O2. Titrate down as tolerated. 7. Type 2 diabetes. Patient to be resumed on insulin regimen. Will adjust as needed 8. Dyslipidemia. Continue statin medication 9. Essential hypertension. Continue antihypertensives and adjust as needed 10. COPD. Patient resumed on O2. Titrate down as tolerated. Bronchodilators as needed. DVT prophylaxis: Apixaban Disposition and plan: Continue antibiotics. is improving. cont current tx. d/c when medically stable and cleared by consultants Discussed plan of care with Problems: Subjective 24 Hr Interval Summary Free Text/Dictation reports better breathing, but still states she has difficulty with breathing when lying down Exam/Review of Systems Vital Signs Vitals Vital Signs Date Time Temp Pulse Resp B/P Pulse Ox O2 Delivery O2 Flow Rate FiO2 07/26/16 17:00 82 07/26/16 15:25 98.2 16 100/65 97 07/26/16 07:30 Nasal Cannula 4.0 Intake and Output 07/25/16 07/25/16 07/26/16 15:00 23:00 07:00 Intake Total 50 ml 1230 ml 900 ml Balance 50 ml 1230 ml 900 ml Exam Constitutional: alert, oriented Psych: nl mood/affect Head: normocephalic Eyes: nl conjunctiva Neck: non-tender, supple Respiratory: diminished breath sounds (at bases) Gastrointestinal: non-tender, soft, No ascites Extremities: edema (ble) 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, nl mental status, nl speech Results Result Diagram: 07/25/16 0500 07/25/16 0553 Results 24 hrs Laboratory Tests Test 07/25/16 21:13 07/26/16 07:46 07/26/16 11:47 07/26/16 17:33 Bedside Glucose 145 179 190 184 Medications Medications Current Medications Ondansetron HCl (Zofran Inj) 4 mg Q6H PRN IV NAUSEA AND/OR VOMITING; Start 07/23 at 04:30 Famotidine 20 mg 20 mg Q12 PO Last administered on 07/26/16 08:20; Admin Dose 20 MG; Start 07/23/16 at 09:00 Cefepime HCl (Maxipime 2gm/50 ml (Pmx)) 50 ml @ 100 mls/hr Q12 IVPB Last administered on 07/26/16 08:21; Admin Dose 100 MLS/HR; Start 07/23/16 at 13:00 Apixaban (Eliquis) 5 mg BID PO Last administered on 07/23/16 09:31; Admin Dose 5 MG; Start 07/23/16 at 09:00; Status Future Hold Atorvastatin Calcium (Lipitor) 40 mg HS PO Last administered on 07/25/16 21:14 ; Admin Dose 40 MG; Start 07/23/16 at 21:00 Digoxin (Digoxin) 0.25 mg DAILY@13 PO Last administered on 07/26/16 12:29; Admin Dose 0.25 MG; Start 07/23/16 at 13:00 Diltiazem HCl (Cardizem Cd) 240 mg DAILY PO Last administered on 07/26/16 08:21 ; Admin Dose 240 MG; Start 07/23/16 at 09:00 Multivitamins Therapeutic (Theragran) 1 tab DAILY PO Last administered on 08:20; Admin Dose 1 TAB; Start 07/23/16 at 09:00 Salmeterol Xinafoate/ Fluticasone (Advair 250/50 Diskus) 1 inh BID INH Last administered on 07/26/16 08:20; Admin Dose 1 INH; Start 07/23/16 at 09:00 Spironolactone 25 mg 25 mg DAILY PO Last administered on 07/26/16 08:20; Admin Dose 25 MG; Start 07/23/16 at 09:00 Vancomycin HCl (Vancocin) 250 ml @ 125 mls/hr Q12H IVPB Last administered on 10:58; Admin Dose 125 MLS/HR; Start 07/23/16 at 23:00 Diagnostic Test (Pha) (Accu-Chek) 1 ea 02 XX Last administered on 07/24/16 02: 04; Admin Dose 1 EA; Start 07/24/16 at 02:00 Miscellaneous Information 1 ea NOTE XX ; Start 07/23/16 at 17:30 Glucose (Glutose) 15 gm Q15M PRN PO DECREASED GLUCOSE; Start 07/23/16 at 17:30 Glucose (Glutose) 22.5 gm Q15M PRN PO DECREASED GLUCOSE; Start 07/23/16 at 17:30 Dextrose (D50w Syringe) 25 ml Q15M PRN IV DECREASED GLUCOSE; Start 07/23/16 at 17:30 Dextrose (D50w Syringe) 50 ml Q15M PRN IV DECREASED GLUCOSE; Start 07/23/16 at 17:30 Glucagon (Glucagen) 1 mg Q15M PRN IM DECREASED GLUCOSE; Start 07/23/16 at 17:30 Glucose 15 gm 15 gm Q15M PRN BUCCAL DECREASED GLUCOSE; Start 07/23/16 at 17:30 Sodium Chloride (NS) 1,000 ml @ 50 mls/hr Q20H IV Last administered on 22:26; Admin Dose 60 MLS/HR; Start 07/23/16 at 22:30 Insulin Glargine (Lantus) 40 unit DAILY@20 SC Last administered on 07/25/16 21: 23; Admin Dose 40 UNIT; Start 07/24/16 at 20:00 Furosemide (Lasix) 40 mg DAILY IV Last administered on 07/26/16 08:20; Admin Dose 40 MG; Start 07/26/16 at 09:00 EDUARDO GOLDSTEIN July 26, 2016 17:53
[2016-07-26] MEDS: INSULIN GLARGINE [LANtus] 3 ML PEN SC SCH (20:42)
[2016-07-26] MEDS: ATORVASTATIN 40 MG TAB PO SCH (20:44)
[2016-07-27] VITALS (13 sets, daily range): BP systolic 103–129; BP diastolic 58–79; PULSE 63–79; RESP 18–24
[2016-07-27] MEDS: VANCOMYCIN 1 GM in NS 250 ML IVPB SCH ×2 (00:19→11:22)
[2016-07-27] MEDS: ACCU-CHEK XX SCH (01:48)
[2016-07-27] MEDS: SOD CHLORIDE 0.9% 1,000 ML IV SCH (05:40)
[2016-07-27 06:50] LABS: ADD SCAN DIFF NO
[2016-07-27 06:54] LABS: BASOPHILS % 0.2 % (0.0-2.0); EOSINOPHILS # 0.2 10^3/ul (0.0-0.5); EOSINOPHILS % 1.9 % (0.0-7.0); HEMATOCRIT 39.2 % (37.0-47.0); HEMOGLOBIN 11.8 g/dl (12.0-16.0); LYMPHOCYTES # 2.5 10^3/ul (0.8-2.9); LYMPHOCYTES % 20.2 % (15.0-51.0); MEAN CORPUSCULAR HEMOGLOBIN 27.9 pg (29.0-33.0); MEAN CORPUSCULAR HGB CONC 30.1 g/dl (32.0-37.0); MEAN CORPUSCULAR VOLUME 92.7 fl (82.0-101.0); MEAN PLATELET VOLUME 9.6 fl (7.4-10.4); MONOCYTE # 0.9 10^3/ul (0.3-0.9); NEUTROPHIL # 8.6 10^3/ul (1.6-7.5); NEUTROPHILS % 69.7 % (39.0-77.0); PLATELET COUNT 268 10^3/UL (140-415); RED BLOOD COUNT 4.23 10^6/ul (4.20-5.40); RED CELL DISTRIBUTION WIDTH 18.1 % (11.5-14.5); WHITE BLOOD COUNT 12.4 10^3/ul (4.8-10.8)
[2016-07-27 07:14] LABS: POTASSIUM 4.2 mmol/L (3.5-5.1)
[2016-07-27 07:17] LABS: CREATININE 0.83 mg/dl (0.44-1.00)
[2016-07-27 07:18] LABS: CALCIUM 8.6 mg/dl (8.4-10.2)
[2016-07-27] MEDS: FAMOTIDINE 20 MG TAB PO SCH ×2 (08:20→20:36)
[2016-07-27] MEDS: SPIRONOLACTONE 25 MG TAB PO SCH (08:20)
[2016-07-27] MEDS: MULTIVITAMINS THERAPEUTIC TAB PO SCH (08:20)
[2016-07-27] MEDS: SALMETEROL/FLUTICASONE 250/50 INHA INH SCH ×2 (08:20→20:38)
[2016-07-27] MEDS: DILTIAZEM (CD) 240 MG CAP PO SCH (08:21)
[2016-07-27] MEDS: FUROSEMIDE 40 MG INJ IV SCH (08:21)
[2016-07-27] MEDS: CEFEPIME 2GM/50 ML (PMX) 50 ML IVPB SCH (08:27)
[2016-07-27] MEDS: INSULIN ASPART [NOVOLOG] 3 ML PEN SC SCH ×7 (08:29→20:39)
--- NOTE | 2016-07-27 10:53 | CONS ---
Date/Time of Note Date/Time of Note DATE: 07/27/16 TIME: 10:51 Assessment/Plan Assessment/Plan Additional Assessment/Plan Assessment recommendations; next 1. Patient admitted for left lower lobe pneumonia with marked clinical and radiological improvement. 2. Compensated CHF. 3. Underlying obesity. Continue current treatment. Consider discharging the patient home on oral antibiotics. I would recommend discharging her on combination of Levaquin and doxycycline for 5 days. Consultation Date/Type/Reason Admit Date/Time July 23, 2016 at 04:09 Type of Consultation: Pulmonary 24 HR Interval Summary Free Text/Dictation Patient condition is markedly improved with significant improvement in shortness of breath. Patient denies any coughing, wheezing, sputum production, chest pain or fever. General exam; elderly lady, awake alert currently in no distress. Exam/Review of Systems Vital Signs Vitals Vital Signs Date Time Temp Pulse Resp B/P Pulse Ox O2 Delivery O2 Flow Rate FiO2 07/27/16 08:32 72 07/27/16 08:00 Nasal Cannula 4.0 07/27/16 07:37 98.1 20 129/72 94 Intake and Output 07/26/16 07/26/16 07/27/16 15:00 23:00 07:00 Intake Total 1450 ml 600 ml Output Total 660 ml Balance 790 ml 600 ml Exam HEENT examination; supple neck, no JVD. No lymphadenopathy. Midline trachea. No thyromegaly. Patient does have a few missing teeth. Chest examination; clear to auscultation. S1-S2 audible, no murmurs. Regular rhythm. Abdomen exam is; protuberant. Nontender. No organomegaly. Bowel sounds audible. Extremity examination; no peripheral edema. Pulses 1+ bilaterally. 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 Results Result Diagram: 07/27/1633 07/27/16632 Results 24 hrs Laboratory Tests Test 07/26/16 11:47 07/26/16 17:33 07/26/16 20:40 07/27/16 06:33 Bedside Glucose 190 184 89 White Blood Count 12.4 H Red Blood Count 4.23 Hemoglobin 11.8 L Hematocrit 39.2 Mean Corpuscular Volume 92.7 Mean Corpuscular Hemoglobin 27.9 L Mean Corpuscular Hemoglobin Concent 30.1 L Red Cell Distribution Width 18.1 H Platelet Count 268 Mean Platelet Volume 9.6 Neutrophils % 69.7 Lymphocytes % 20.2 Monocytes % 7.0 Eosinophils % 1.9 Basophils % 0.2 Nucleated Red Blood Cells % 0.0 Neutrophils # 8.6 H Lymphocytes # 2.5 Monocytes # 0.9 Eosinophils # 0.2 Basophils # 0.0 Nucleated Red Blood Cells # 0.0 Sodium Level 142 Potassium Level 4.2 Chloride Level 96 L Carbon Dioxide Level 36 H Anion Gap 14 Blood Urea Nitrogen 23 H Creatinine 0.83 Glucose Level 152 Calcium Level 8.6 Test 07/27/16 08:18 Bedside Glucose 172 Medications Medications Current Medications Ondansetron HCl (Zofran Inj) 4 mg Q6H PRN IV NAUSEA AND/OR VOMITING; Start 07/23 at 04:30 Famotidine 20 mg 20 mg Q12 PO Last administered on 07/27/16 08:20; Admin Dose 20 MG; Start 07/23/16 at 09:00 Cefepime HCl (Maxipime 2gm/50 ml (Pmx)) 50 ml @ 100 mls/hr Q12 IVPB Last administered on 07/27/16 08:27; Admin Dose 100 MLS/HR; Start 07/23/16 at 13:00 Apixaban (Eliquis) 5 mg BID PO Last administered on 07/23/16 09:31; Admin Dose 5 MG; Start 07/23/16 at 09:00; Status Future Hold Atorvastatin Calcium (Lipitor) 40 mg HS PO Last administered on 07/26/16 20:44 ; Admin Dose 40 MG; Start 07/23/16 at 21:00 Digoxin (Digoxin) 0.25 mg DAILY@13 PO Last administered on 07/26/16 12:29; Admin Dose 0.25 MG; Start 07/23/16 at 13:00 Diltiazem HCl (Cardizem Cd) 240 mg DAILY PO Last administered on 07/27/16 08: 21; Admin Dose 240 MG; Start 07/23/16 at 09:00 Multivitamins Therapeutic (Theragran) 1 tab DAILY PO Last administered on 08:20; Admin Dose 1 TAB; Start 07/23/16 at 09:00 Salmeterol Xinafoate/ Fluticasone (Advair 250/50 Diskus) 1 inh BID INH Last administered on 07/27/16 08:20; Admin Dose 1 INH; Start 07/23/16 at 09:00 Spironolactone 25 mg 25 mg DAILY PO Last administered on 07/27/16 08:20; Admin Dose 25 MG; Start 07/23/16 at 09:00 Vancomycin HCl (Vancocin) 250 ml @ 125 mls/hr Q12H IVPB Last administered on 00:19; Admin Dose 125 MLS/HR; Start 07/23/16 at 23:00 Diagnostic Test (Pha) (Accu-Chek) 1 ea 02 XX Last administered on 07/24/16 02: 04; Admin Dose 1 EA; Start 07/24/16 at 02:00 Miscellaneous Information 1 ea NOTE XX ; Start 07/23/16 at 17:30 Glucose (Glutose) 15 gm Q15M PRN PO DECREASED GLUCOSE; Start 07/23/16 at 17:30 Glucose (Glutose) 22.5 gm Q15M PRN PO DECREASED GLUCOSE; Start 07/23/16 at 17:30 Dextrose (D50w Syringe) 25 ml Q15M PRN IV DECREASED GLUCOSE; Start 07/23/16 at 17:30 Dextrose (D50w Syringe) 50 ml Q15M PRN IV DECREASED GLUCOSE; Start 07/23/16 at 17:30 Glucagon (Glucagen) 1 mg Q15M PRN IM DECREASED GLUCOSE; Start 07/23/16 at 17:30 Glucose 15 gm 15 gm Q15M PRN BUCCAL DECREASED GLUCOSE; Start 07/23/16 at 17:30 Sodium Chloride (NS) 1,000 ml @ 50 mls/hr Q20H IV Last administered on 22:26; Admin Dose 60 MLS/HR; Start 07/23/16 at 22:30 Insulin Glargine (Lantus) 40 unit DAILY@20 SC Last administered on 07/26/16 20: 42; Admin Dose 40 UNIT; Start 07/24/16 at 20:00 Furosemide (Lasix) 40 mg DAILY IV Last administered on 07/27/16 08:21; Admin Dose 40 MG; Start 07/26/16 at 09:00 MAGALYS CHAPIN July 27, 2016 10:53
[2016-07-27] MEDS: DIGOXIN 0.25 MG TAB PO SCH (13:14)
[2016-07-27] MEDS ORDERED: APIX5TAB PO (13:41)
[2016-07-27] MEDS ORDERED: NOVO3I SC (13:41)
[2016-07-27] MEDS ORDERED: LANT3I SC (13:41)
[2016-07-27] MEDS ORDERED: MULTI PO (13:41)
[2016-07-27] MEDS ORDERED: FURO40TA4 PO (13:41)
[2016-07-27] MEDS ORDERED: ADV25050 INH (13:41)
--- NOTE | 2016-07-27 13:45 | PDOCDIS ---
Discharge Instructions DIAGNOSIS Discharge Diagnosis: 1. Acute on chronic respiratory failure with hypoxia and hypercapnia 2. C CONDITION Patient Condition: Stable HOME CARE INSTRUCTIONS: Special Diet: carb control FOLLOW UP/APPOINTMENTS Appointments 1. Follow up with your main galley scullion within one week 2. Follow up with Dr. Mendoza Drake in 1-2 weeks EDUARDO GOLDSTEIN July 27, 2016 13:45
[2016-07-27] MEDS ORDERED: DOXY-220 PO (13:47)
[2016-07-27] MEDS ORDERED: LEVO500T72 PO (13:47)
--- NOTE | 2016-07-27 16:19 | PN ---
Date/Time of Note Date/Time of Note DATE: 07/27/16 TIME: 16:17 Assessment/Plan VTE Prophylaxis VTE Prophylaxis Intervention: other (eliquis) Lines/Catheters [facility] Saline Lock Urinary Cath still in place: No Assessment/Plan Chief Complaint/Hosp Course Assessment and plan 1. Acute on chronic respiratory failure with hypercapnia and hypoxia likely secondary to COPD and CHF exacerbation. Continue to supplement. Continue bronchodilators. On diuretic. 2. Large left-sided pleural effusion. No plan for thoracentesis at this time. Continue on diuretic medication. appears to be improving 3. Healthcare associated pneumonia. Continue antibiotics. switched to levaquin and doxycycline 4. CHF. Continue optimization with cardiovascular medications 5. A. fib. Controlled at this time. Patient to be resumed on apixaban. Continue on digoxin 6. Pulmonary hypertension. Patient with history of pulmonary arterial pressure of 45 mmHg. Continue O2. Titrate down as tolerated. 7. Type 2 diabetes. Patient to be resumed on insulin regimen. Will adjust as needed 8. Dyslipidemia. Continue statin medication 9. Essential hypertension. Continue antihypertensives and adjust as needed 10. COPD. Patient resumed on O2. Titrate down as tolerated. Bronchodilators as needed. DVT prophylaxis: Apixaban Disposition and plan: cont on abx. still with some dyspnea. cont current tx Discussed plan of care with Problems: Subjective 24 Hr Interval Summary Free Text/Dictation still with some dyspnea Exam/Review of Systems Vital Signs Vitals Vital Signs Date Time Temp Pulse Resp B/P Pulse Ox O2 Delivery O2 Flow Rate FiO2 07/27/16 15:00 98.0 72 20 124/67 95 07/27/16 08:00 Nasal Cannula 4.0 Intake and Output 07/26/16 07/26/16 07/27/16 15:00 23:00 07:00 Intake Total 1450 ml 600 ml Output Total 660 ml Balance 790 ml 600 ml Exam Constitutional: alert, oriented Head: normocephalic Neck: supple Respiratory: diminished breath sounds Cardiovascular: other (regular rate) Gastrointestinal: non-tender, soft Musculoskeletal: swelling (ble) 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: nl mental status, nl speech Results Result Diagram: 07/27/16 0633 07/27/16 0633 Results 24 hrs Laboratory Tests Test 07/26/16 17:33 07/26/16 20:40 07/27/16 06:33 07/27/16 08:18 Bedside Glucose 184 89 172 White Blood Count 12.4 H Red Blood Count 4.23 Hemoglobin 11.8 L Hematocrit 39.2 Mean Corpuscular Volume 92.7 Mean Corpuscular Hemoglobin 27.9 L Mean Corpuscular Hemoglobin Concent 30.1 L Red Cell Distribution Width 18.1 H Platelet Count 268 Mean Platelet Volume 9.6 Neutrophils % 69.7 Lymphocytes % 20.2 Monocytes % 7.0 Eosinophils % 1.9 Basophils % 0.2 Nucleated Red Blood Cells % 0.0 Neutrophils # 8.6 H Lymphocytes # 2.5 Monocytes # 0.9 Eosinophils # 0.2 Basophils # 0.0 Nucleated Red Blood Cells # 0.0 Sodium Level 142 Potassium Level 4.2 Chloride Level 96 L Carbon Dioxide Level 36 H Anion Gap 14 Blood Urea Nitrogen 23 H Creatinine 0.83 Glucose Level 152 Calcium Level 8.6 Test 07/27/16 12:06 Bedside Glucose 244 H Medications Medications Current Medications Ondansetron HCl (Zofran Inj) 4 mg Q6H PRN IV NAUSEA AND/OR VOMITING; Start 07/23 at 04:30 Famotidine (Pepcid) 20 mg Q12 PO Last administered on 07/27/16 08:20; Admin Dose 20 MG; Start 07/23/16 at 09:00 Apixaban (Eliquis) 5 mg BID PO Last administered on 07/23/16 09:31; Admin Dose 5 MG; Start 07/23/16 at 09:00; Status Future hold Atorvastatin Calcium (Lipitor) 40 mg HS PO Last administered on 07/26/16 20:44 ; Admin Dose 40 MG; Start 07/23/16 at 21:00 Digoxin (Digoxin) 0.25 mg DAILY@13 PO Last administered on 07/27/16 13:14; Admin Dose 0.25 MG; Start 07/23/16 at 13:00 Diltiazem HCl (Cardizem Cd) 240 mg DAILY PO Last administered on 07/27/16 08: 21; Admin Dose 240 MG; Start 07/23/16 at 09:00 Multivitamins Therapeutic (Theragran) 1 tab DAILY PO Last administered on 08:20; Admin Dose 1 TAB; Start 07/23/16 at 09:00 Salmeterol Xinafoate/ Fluticasone (Advair 250/50 Diskus) 1 inh BID INH Last administered on 07/27/16 08:20; Admin Dose 1 INH; Start 07/23/16 at 09:00 Spironolactone 25 mg 25 mg DAILY PO Last administered on 07/27/16 08:20; Admin Dose 25 MG; Start 07/23/16 at 09:00 Vancomycin HCl (Vancocin) 250 ml @ 125 mls/hr Q12H IVPB Last administered on 11:22; Admin Dose 125 MLS/HR; Start 07/23/16 at 23:00 Diagnostic Test (Pha) (Accu-Chek) 1 ea 02 XX Last administered on 07/24/16 02: 04; Admin Dose 1 EA; Start 07/24/16 at 02:00 Miscellaneous Information 1 ea NOTE XX ; Start 07/23/16 at 17:30 Glucose (Glutose) 15 gm Q15M PRN PO DECREASED GLUCOSE; Start 07/23/16 at 17:30 Glucose (Glutose) 22.5 gm Q15M PRN PO DECREASED GLUCOSE; Start 07/23/16 at 17:30 Dextrose (D50w Syringe) 25 ml Q15M PRN IV DECREASED GLUCOSE; Start 07/23/16 at 17:30 Dextrose (D50w Syringe) 50 ml Q15M PRN IV DECREASED GLUCOSE; Start 07/23/16 at 17:30 Glucagon (Glucagen) 1 mg Q15M PRN IM DECREASED GLUCOSE; Start 07/23/16 at 17:30 Glucose 15 gm 15 gm Q15M PRN BUCCAL DECREASED GLUCOSE; Start 07/23/16 at 17:30 Sodium Chloride (NS) 1,000 ml @ 50 mls/hr Q20H IV Last administered on 22:26; Admin Dose 60 MLS/HR; Start 07/23/16 at 22:30 Insulin Glargine (Lantus) 40 unit DAILY@20 SC Last administered on 07/26/16 20: 42; Admin Dose 40 UNIT; Start 07/24/16 at 20:00 Furosemide (Lasix) 40 mg DAILY PO ; Start 07/28/16 at 09:00; Status UNV Levofloxacin (Levaquin) 500 mg DAILY@06 PO ; Start 07/28/16 at 06:00; Status UNV Doxycycline Hyclate (Vibramycin) 100 mg BID PO ; Start 07/27/16 at 21:00; Status UNV EDUARDO GOLDSTEIN July 27, 2016 16:19
[2016-07-27] MEDS: DOXYCYCLINE 100 MG TAB PO SCH (20:37)
[2016-07-27] MEDS: ATORVASTATIN 40 MG TAB PO SCH (20:37)
[2016-07-27] MEDS: APIXABAN 5 MG TABLET PO SCH (20:37)
[2016-07-27] MEDS: INSULIN GLARGINE [LANtus] 3 ML PEN SC SCH (20:43)
[2016-07-28] VITALS (7 sets, daily range): BP systolic 106–112; BP diastolic 66–72; PULSE 63–86; RESP 18–20
[2016-07-28] MEDS: SOD CHLORIDE 0.9% 1,000 ML IV SCH (01:40)
[2016-07-28] MEDS: ACCU-CHEK XX SCH (02:00)
[2016-07-28] MEDS ORDERED: LEVOFLOXACIN 500 MG TAB PO SCH (06:00)
[2016-07-28 07:03] LABS: ADD SCAN DIFF NO
[2016-07-28 07:14] LABS: BASOPHILS % 0.3 % (0.0-2.0); EOSINOPHILS # 0.3 10^3/ul (0.0-0.5); HEMATOCRIT 38.5 % (37.0-47.0); HEMOGLOBIN 11.9 g/dl (12.0-16.0); LYMPHOCYTES # 2.3 10^3/ul (0.8-2.9); LYMPHOCYTES % 17.1 % (15.0-51.0); MEAN CORPUSCULAR HEMOGLOBIN 28.4 pg (29.0-33.0); MEAN CORPUSCULAR HGB CONC 30.9 g/dl (32.0-37.0); MEAN CORPUSCULAR VOLUME 91.9 fl (82.0-101.0); MEAN PLATELET VOLUME 9.7 fl (7.4-10.4); MONOCYTE # 0.9 10^3/ul (0.3-0.9); MONOCYTES % 6.6 % (0.0-11.0); NEUTROPHIL # 9.7 10^3/ul (1.6-7.5); NEUTROPHILS % 72.9 % (39.0-77.0); PLATELET COUNT 294 10^3/UL (140-415); RED BLOOD COUNT 4.19 10^6/ul (4.20-5.40); RED CELL DISTRIBUTION WIDTH 17.5 % (11.5-14.5); WHITE BLOOD COUNT 13.3 10^3/ul (4.8-10.8)
[2016-07-28 07:35] LABS: CALCIUM 8.7 mg/dl (8.4-10.2); CREATININE 0.74 mg/dl (0.44-1.00); POTASSIUM 4.2 mmol/L (3.5-5.1)
[2016-07-28] MEDS: SALMETEROL/FLUTICASONE 250/50 INHA INH SCH (08:03)
[2016-07-28] MEDS: MULTIVITAMINS THERAPEUTIC TAB PO SCH (08:03)
[2016-07-28] MEDS: SPIRONOLACTONE 25 MG TAB PO SCH (08:04)
[2016-07-28] MEDS: DOXYCYCLINE 100 MG TAB PO SCH (08:04)
[2016-07-28] MEDS: APIXABAN 5 MG TABLET PO SCH (08:04)
[2016-07-28] MEDS: DILTIAZEM (CD) 240 MG CAP PO SCH (08:04)
[2016-07-28] MEDS: FAMOTIDINE 20 MG TAB PO SCH (08:10)
[2016-07-28] MEDS: INSULIN ASPART [NOVOLOG] 3 ML PEN SC SCH ×6 (08:11→17:13)
[2016-07-28] MEDS ORDERED: FUROSEMIDE 40 MG TAB PO SCH (09:00)
--- NOTE | 2016-07-28 12:27 | CONS ---
Date/Time of Note Date/Time of Note DATE: 07/28/16 TIME: 12:26 Consult Date/Type/Reason Admit Date/Time July 23, 2016 at 04:09 Initial Consult Date Type of Consultation: Pulmonary Subjective Comfortable no new events patient feels like she is back to her baseline respiratory status Objective Vital Signs Date Time Temp Pulse Resp B/P Pulse Ox O2 Delivery O2 Flow Rate FiO2 07/28/16 12:00 75 07/28/16 11: 97.6 20 106/66 96 07/28/16 07:49 Nasal Cannula 4.0 Intake and Output 07/27/16 07/27/16 07/28/16 15:00 23:00 07:00 Intake Total 1020 ml 400 ml Balance 1020 ml 400 ml Exam GENERAL: Well-nourished well-developed lady comfortable at rest VITAL SIGNS: per chart NECK: Supple. No JVD or lymphadenopathy. CARDIAC EXAM: S1, S2. No added sounds or murmurs. CHEST: clear bilaterally, No added sounds, rales or wheezes ABDOMEN: Soft, nontender. No guarding or rebound. EXTREMITIES: No cyanosis, clubbing or edema. NEUROLOGIC: Generalized weakness. No focal deficits. Results/Medications Result Diagram: 07/28/16 0625 07/28/16 0625 Results 24 hrs Laboratory Tests Test 07/27/16 17:17 07/27/16 20:39 07/28/16 06:25 07/28/16 08:00 Bedside Glucose 92 148 155 White Blood Count 13.3 H Red Blood Count 4.19 L Hemoglobin 11.9 L Hematocrit 38.5 Mean Corpuscular Volume 91.9 Mean Corpuscular Hemoglobin 28.4 L Mean Corpuscular Hemoglobin Concent 30.9 L Red Cell Distribution Width 17.5 H Platelet Count 294 Mean Platelet Volume 9.7 Neutrophils % 72.9 Lymphocytes % 17.1 Monocytes % 6.6 Eosinophils % 2.0 Basophils % 0.3 Nucleated Red Blood Cells % 0.0 Neutrophils # 9.7 H Lymphocytes # 2.3 Monocytes # 0.9 Eosinophils # 0.3 Basophils # 0.0 Nucleated Red Blood Cells # 0.0 Sodium Level 136 Potassium Level 4.2 Chloride Level 97 Carbon Dioxide Level 36 H Anion Gap 7 L Blood Urea Nitrogen 19 Creatinine 0.74 Glucose Level 150 Calcium Level 8.7 Test 07/28/16 12:00 Bedside Glucose 190 Medications Current Medications Ondansetron HCl (Zofran Inj) 4 mg Q6H PRN IV NAUSEA AND/OR VOMITING; Start 07/23 at 04:30 Famotidine (Pepcid) 20 mg Q12 PO Last administered on 07/28/16 08:10; Admin Dose 20 MG; Start 07/23/16 at 09:00 Apixaban (Eliquis) 5 mg BID PO Last administered on 07/28/16 08:04; Admin Dose 5 MG; Start 07/23/16 at 09:00; Status Future hold Atorvastatin Calcium (Lipitor) 40 mg HS PO Last administered on 07/27/16 20:37 ; Admin Dose 40 MG; Start 07/23/16 at 21:00 Digoxin (Digoxin) 0.25 mg DAILY@13 PO Last administered on 07/27/16 13:14; Admin Dose 0.25 MG; Start 07/23/16 at 13:00 Diltiazem HCl (Cardizem Cd) 240 mg DAILY PO Last administered on 07/28/16 08: 04; Admin Dose 240 MG; Start 07/23/16 at 09:00 Multivitamins Therapeutic (Theragran) 1 tab DAILY PO Last administered on 08:03; Admin Dose 1 TAB; Start 07/23/16 at 09:00 Salmeterol Xinafoate/ Fluticasone (Advair 250/50 Diskus) 1 inh BID INH Last administered on 07/28/16 08:03; Admin Dose 1 INH; Start 07/23/16 at 09:00 Spironolactone (Aldactone) 25 mg DAILY PO Last administered on 07/28/16 08:04 ; Admin Dose 25 MG; Start 07/23/16 at 09:00 Diagnostic Test (Pha) (Accu-Chek) 1 ea 02 XX Last administered on 07/24/16 02: 04; Admin Dose 1 EA; Start 07/24/16 at 02:00 Miscellaneous Information 1 ea NOTE XX ; Start 07/23/16 at 17:30 Glucose (Glutose) 15 gm Q15M PRN PO DECREASED GLUCOSE; Start 07/23/16 at 17:30 Glucose (Glutose) 22.5 gm Q15M PRN PO DECREASED GLUCOSE; Start 5/6/17 at 17:30 Dextrose (D50w Syringe) 25 ml Q15M PRN IV DECREASED GLUCOSE; Start 07/23/16 at 17:30 Dextrose (D50w Syringe) 50 ml Q15M PRN IV DECREASED GLUCOSE; Start 07/23/16 at 17:30 Glucagon (Glucagen) 1 mg Q15M PRN IM DECREASED GLUCOSE; Start 07/23/16 at 17:30 Glucose 15 gm 15 gm Q15M PRN BUCCAL DECREASED GLUCOSE; Start 07/23/16 at 17:30 Sodium Chloride (NS) 1,000 ml @ 50 mls/hr Q20H IV Last administered on 22:26; Admin Dose 60 MLS/HR; Start 07/23/16 at 22:30 Insulin Glargine (Lantus) 40 unit DAILY@20 SC Last administered on 07/27/16 20 :43; Admin Dose 40 UNIT; Start 07/24/16 at 20:00 Furosemide (Lasix) 40 mg DAILY PO Last administered on 07/28/16 08:11; Admin Dose 40 MG; Start 07/28/16 at 09:00 Levofloxacin (Levaquin) 500 mg DAILY@06 PO Last administered on 07/28/16 05:53 ; Admin Dose 500 MG; Start 07/28/16 at 06:00 Doxycycline Hyclate (Vibramycin) 100 mg BID PO Last administered on 07/28/16 08:04; Admin Dose 100 MG; Start 07/27/16 at 21:00 Assessment/Plan Chief Complaint/Hosp Course Assessment 1. Congestive cardiac failure with pleural effusion status post thoracentesis 2. History of COPD with hypoxemic and hypercapnic respiratory failure Plan 1. Continue diuretics 2. Continue supplemental O2 3. Discharge planning 4. Follow-up with me in office Problems: OSMANI LUIS MD, [facility] July 28, 2016 12:27
[2016-07-28] MEDS: DIGOXIN 0.25 MG TAB PO SCH (12:37)
== END 2016-07-28 18:05 | disposition home health service (06) | DRG 291 ==
LOC: E/R 01:57 → TEL 04:09
PROVIDERS: ADMIT Family Medicine; ATTEND Family Medicine
DX: I11.0 Hypertensive heart disease with heart failure (principal); J18.9 Pneumonia, unspecified organism; J96.21 Acute and chronic respiratory failure with hypoxia; I27.2 Other secondary pulmonary hypertension; Z68.41 Body mass index [BMI] 40.0-44.9, adult; Z79.01 Long term (current) use of anticoagulants; E11.65 Type 2 diabetes mellitus with hyperglycemia; I48.91 Unspecified atrial fibrillation; J96.22 Acute and chronic respiratory failure with hypercapnia; J44.9 Chronic obstructive pulmonary disease, unspecified; D50.9 Iron deficiency anemia, unspecified; Z79.4 Long term (current) use of insulin; I50.33 Acute on chronic diastolic (congestive) heart failure; G47.33 Obstructive sleep apnea (adult) (pediatric); E66.01 Morbid (severe) obesity due to excess calories; Z87.891 Personal history of nicotine dependence
CPT/HCPCS: 71010; 76604; 80048; 80053; 80202; 81003; 82962; 83036; 83605; 83735; 83880; 84100; 84484; 85025; 85049; 85610; 85670; 85730; 87040; 87081; 93005; 94644; 96374; 96375; J0692; J1815; J1940; J2930; J3370; J7030; J7040

== ENCOUNTER 2016-08-19 20:32 | Inpatient (IN) | payer MEDICARE, OTHER ==
[~2016-08-19] VITALS: Ht 170.2 cm; Wt 118.1 kg
[~2016-08-19 20:32] MED LIST changes: +ADV25050 INH; -ADV25050 INHALATION; -BUME1TAB18 PO; -DIGO250T PO; +DOXY-220 PO; +FURO40TA4 PO; +IBUP-1542 PO; +LEVO500T72 PO; +MULTI PO; -POTA20PA23 PO
[2016-08-19 21:16] VITALS: Ht 170.2 cm; Wt 118.1 kg
[2016-08-19] MEDS ORDERED: MTF1000T PO ×2 (22:42)
[2016-08-19 22:48] LABS: ADD SCAN DIFF NO
[2016-08-19] MEDS ORDERED: GLIM4TAB PO (22:48)
[2016-08-19] MEDS ORDERED: AMIO200T2 PO (22:48)
[2016-08-19 22:50] LABS: BASOPHILS % 0.1 % (0.0-2.0); EOSINOPHILS # 0.1 10^3/ul (0.0-0.5); EOSINOPHILS % 0.3 % (0.0-7.0); HEMOGLOBIN 11.6 g/dl (12.0-16.0); LYMPHOCYTES # 1.6 10^3/ul (0.8-2.9); LYMPHOCYTES % 11.3 % (15.0-51.0); MEAN CORPUSCULAR HEMOGLOBIN 28.4 pg (29.0-33.0); MEAN CORPUSCULAR HGB CONC 30.5 g/dl (32.0-37.0); MEAN CORPUSCULAR VOLUME 93.1 fl (82.0-101.0); MEAN PLATELET VOLUME 9.5 fl (7.4-10.4); MONOCYTE # 1.1 10^3/ul (0.3-0.9); MONOCYTES % 7.9 % (0.0-11.0); NEUTROPHIL # 11.4 10^3/ul (1.6-7.5); NEUTROPHILS % 79.8 % (39.0-77.0); PLATELET COUNT 345 10^3/UL (140-415); RED BLOOD COUNT 4.08 10^6/ul (4.20-5.40); RED CELL DISTRIBUTION WIDTH 16.8 % (11.5-14.5); WHITE BLOOD COUNT 14.3 10^3/ul (4.8-10.8)
--- NOTE | 2016-08-19 22:54 | RADRPT ---
PROCEDURE: XR Chest. CLINICAL INDICATION: Possible sepsis TECHNIQUE: Single AP portable chest COMPARISON: 06/21/2016 Chest x-ray FINDINGS: Cardiac silhouette is enlarged. Atherosclerotic calcification of the aorta. Increase size of left pleural effusion and/or consolidation. No pneumothorax. The osseous structures and soft tissues are unremarkable. IMPRESSION: 1. Increase size of left pleural effusion and/or consolidation. Cardiomegaly . RPTAT:AAJJ Elizabeth Levine Physician Date Time Electronically viewed and signed by Elizabeth Levine Physician on 08/19/2016 22:54 RACHEL/
[2016-08-19] MEDS ORDERED: VANCOMYCIN 1 GM (PMX) 250 ML IVPB STA (23:00)
[2016-08-19] MEDS ORDERED: CEFEPIME 2GM/50 ML (PMX) 50 ML IVPB STA (23:00)
[2016-08-19 23:05] LABS: INR 0.92; PROTIME 12.4 Sec (12.2-14.2)
[2016-08-19 23:06] LABS: PARTIAL THROMBOPLASTIN TIME 31.2 Sec (25.0-35.0)
[2016-08-19 23:07] LABS: ALANINE AMINOTRANSFERASE 60 IU/L (13-69); ALBUMIN 4.4 g/dl (3.3-4.9); ALBUMIN/GLOBULIN RATIO 1.33; ALKALINE PHOSPHATASE 185 IU/L (42-121); ANION GAP 14 (8-16); ASPARTATE AMINO TRANSFERASE 46 IU/L (15-46); BILIRUBIN,INDIRECT 0.2 mg/dl (0-1.1); BILIRUBIN,TOTAL 0.2 mg/dl (0.2-1.3); BLOOD UREA NITROGEN 17 mg/dl (7-20); CALCIUM 9.3 mg/dl (8.4-10.2); CARBON DIOXIDE 36 mmol/L (21-31); CHLORIDE 91 mmol/L (97-110); CREATININE 0.87 mg/dl (0.44-1.00); GLUCOSE 242 mg/dl (70-220); POTASSIUM 4.7 mmol/L (3.5-5.1); SODIUM 136 mmol/L (135-144); TOTAL PROTEIN 7.7 g/dl (6.1-8.1)
[2016-08-19 23:20] LABS: TROPONIN-I < 0.012 ng/ml (0.00-0.12)
[2016-08-19 23:27] LABS: ADD UMIC NO; URINE BILIRUBIN (Dip) NEGATIVE (NEGATIVE); URINE BLOOD (Dip) NEGATIVE (NEGATIVE); URINE COLOR LT. YELLOW (YELLOW); URINE GLUCOSE (Dip) NEGATIVE (NEGATIVE); URINE KETONES (Dip) NEGATIVE (NEGATIVE); URINE LEUKOCYTE ESTERASE (Dip) NEGATIVE (NEGATIVE); URINE NITRITE (Dip) NEGATIVE (NEGATIVE); URINE TOTAL PROTEIN (Dip) NEGATIVE (NEGATIVE); URINE UROBILINOGEN (Dip) 0.2 E.U./dL (0.1-1.0)
[2016-08-19] MEDS ORDERED: SOD CHLORIDE 0.9% 1,000 ML IV SCH (23:41)
[2016-08-19] MEDS ORDERED: SOD CHLORIDE 0.9% 500 ML IV STA (23:46)
--- NOTE | 2016-08-19 23:46 | ERA ---
ER Documentation Chief Complaint Date/Time DATE: 08/19/16 TIME: 23:42 Chief Complaint SHORTNESS OF BREATH ON EXERTION, OX SAT DROPPED TO 82% WHILE ON OXYGEN HPI This is a 65-year-old female presents to the emergency room for evaluation of shortness of breath. She states that her shortness of breath is been present for 2 days duration and is worse with any exertion. The patient does have a history of COPD and she is on home oxygen. While in the emergency room this patient's vision did drop to 82% while moving to the bed. She does say she has a history of pneumonia in the past as well. ROS All systems reviewed and are negative except as per history of present illness. Medications Home Meds Active Scripts Doxycycline Monohydrate* (Doxycycline Monohydrate*) 100 Mg Tablet, 100 MG PO BID for 5 Days, TAB Prov:REGEDUARDO YBARRA 07/27/16 Furosemide* (Furosemide*) 40 Mg Tablet, 40 MG PO DAILY for 30 Days, TAB Prov:REGEDUARDO YBARRA 07/27/16 Multivitamins* (Theragran*) 1 Tab Tab, 1 TAB PO DAILY for 30 Days, TAB Prov:REGIDOEDUARDO Gonzalez 07/27/16 Salmeterol Xinaf/Fluticasone* (Advair*) 250-50 Diskus Inhaler, 1 INH INH BID for 30 Days Prov:EDUARDO GOLDSTEIN 07/27/16 Apixaban* (Eliquis*) 5 Mg Tablet, 5 MG PO BID for 60 Days, TAB 3 Refills Prov:EDUARDO GOLDSTEIN 07/27/16 Digoxin* (Lanoxin*) 0.25 Mg Tablet, 0.25 MG PO DAILY for 30 Days, TAB Prov:KELLY LANDERS NP 06/23/16 [Ipratropium 0.02% (Neb)] 0.5 MG/2.5 ML NEBU No Conflict Check, 0.5 MG HHN Q4H RESP THERAPY Y for SHORTNESS OF BREATH, #30 VIAL 1 Refill Prov:BIBI TSANG 05/09/16 Levalbuterol Hcl* (Xopenex*) 1.25 Mg/0.5 Ml Vial.neb, 1.25 MG HHN Q4H RESP THERAPY Y for SHORTNESS OF BREATH, #30 VIAL 1 Refill Prov:BIBI TSANG 05/09/16 Metoprolol Tartrate* (Lopressor*) 25 Mg Tab, 25 MG PO BID for 30 Days, TAB Prov:SHARANBIBI Cain. 05/09/16 Spironolactone* (Aldactone*) 25 Mg Tablet, 25 MG PO DAILY for 30 Days, TAB Prov:DWAYNE CARTER MD 03/21/16 Diltiazem Hcl* (Cardizem CD*) 240 Mg Cap.sr.24h, 240 MG PO DAILY for 60 Days, # 60 CAP 2 Refills Prov:JOB MG 01/02/16 Reported Medications Glimepiride* (Glimepiride*) 4 Mg Tablet, 4 MG PO WITH BREAKFAST, TAB 08/19/16 Amiodarone Hcl* (Amiodarone Hcl*) 200 Mg Tablet, 200 MG PO DAILY, #30 TAB 08/19/16 Metformin* (Glucophage*) 1,000 Mg Tablet, 1000 MG PO WITH BREAKFAST DINNE, #30 TAB 08/19/16 Metformin* (Glucophage*) 1,000 Mg Tablet, 1000 MG PO BID, #60 TAB 08/19/16 Ibuprofen* (Ibuprofen*) 600 Mg Tablet, 600 MG PO Q8 Y for PAIN, TAB 07/23/16 Atorvastatin* (Atorvastatin*) 40 Mg Tablet, 40 MG PO HS, TAB 08/28/14 Discontinued Scripts Levofloxacin* (Levaquin*) 500 Mg Tablet, 500 MG PO DAILY for 5 Days, TAB Prov:EDUARDO GOLDSTEIN 07/27/16 Insulin Aspart* (Novolog Insulin Pen*) 100 Unit/Ml Soln, 20 UNIT SC WITH MEALS for 30 Days Prov:EDUARDO GOLDSTEIN 07/27/16 Insulin Glargine* (Lantus*) 100 Unit/Ml Soln, 40 UNIT SC DAILY@20 for 30 Days Prov:EDUARDO GOLDSTEIN 07/27/16 Allergies Allergies: Coded Allergies: No Known Allergies (Unverified Allergy, Unknown, 08/19/16) PMhx/Soc History of Surgery: Yes Anesthesia Reaction: No Hx 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 Disorder: No Hx Respiratory Disorders: Yes (COPD) Hx Cardiac Disorders: Yes (HYPERTENTION,CHF,AFIB.) Hx Psychiatric Problems: No Hx Alcohol Use: Yes Hx Substance Use: No Hx Tobacco Use: Yes (FORMER SMOKER) Smoking Status: Former smoker Physical Exam Vitals Vital Signs Date Time Temp Pulse Resp B/P Pulse Ox O2 Delivery O2 Flow Rate FiO2 08/19/16 22:57 Nasal Cannula 5 08/19/16 21:35 87 26 127/82 93 Nasal Cannula 5.0 08/19/16 21:16 99.3 91 22 130/76 88 Physical Exam INITIAL VITAL SIGNS: Reviewed by me GENERAL: The patient is well developed and appropriate for usual state of health in no apparent distress HEENT: Pupils equal, round, and reactive to light. EOMI. There is no scleral icterus. NECK: C-spine is soft and supple, there is no meningismus. There is no cervical lymphadenopathy. LUNGS: Diminished bilaterally. There are no rales, wheezes or rhonchi. HEART: Regular rate and rhythm, no murmurs, clicks, rubs or gallops. ABDOMEN: Obese limiting exam, soft, non-tender, non-distended. There are bowel sounds in all four quadrants. No rebound or guarding. EXTREMITIES: There is no peripheral cyanosis or edema. No focal swelling or erythema. NEUROLOGICAL: The patient moves all four extremities with 5/5 strength. Cranial nerves II - XII are intact. Normal gait. Alert and oriented SKIN: There is no apparent rash or petechiae. HEME/LYMPHATIC: There is no evidence of excessive bruising or lymphedema. PSYCHIATRIC: The patient does not appear anxious or depressed. Result Diagram: 08/19/16223408/19/162152 Results 24 hrs Laboratory Tests Test 08/19/16 21:53 08/19/16 22:35 08/19/16 22:50 Sodium Level 136mmol/L Potassium Level 4.7mmol/L Chloride Level 91mmol/L Carbon Dioxide Level 36mmol/L Anion Gap 14 Blood Urea Nitrogen 17mg/dl Creatinine 0.87mg/dl Glucose Level 242mg/dl Calcium Level 9.3mg/dl Total Bilirubin 0.2mg/dl Direct Bilirubin 0.00mg/dl Indirect Bilirubin 0.2mg/dl Aspartate Amino Transf (AST/SGOT) 46IU/L Alanine Aminotransferase (ALT/SGPT) 60IU/L Alkaline Phosphatase 185IU/L Troponin I < 0.012ng/ml Total Protein 7.7g/dl Albumin 4.4g/dl Globulin 3.30g/dl Albumin/Globulin Ratio 1.33 White Blood Count 14.310^3/ul Red Blood Count 4.0810^6/ul Hemoglobin 11.6g/dl Hematocrit 38.0% Mean Corpuscular Volume 93.1fl Mean Corpuscular Hemoglobin 28.4pg Mean Corpuscular Hemoglobin Concent 30.5g/dl Red Cell Distribution Width 16.8% Platelet Count 03546^3/UL Mean Platelet Volume 9.5fl Neutrophils % 79.8% Lymphocytes % 11.3% Monocytes % 7.9% Eosinophils % 0.3% Basophils % 0.1% Nucleated Red Blood Cells % 0.0/100WBC Neutrophils # 11.410^3/ul Lymphocytes # 1.610^3/ul Monocytes # 1.110^3/ul Eosinophils # 0.110^3/ul Basophils # 0.010^3/ul Nucleated Red Blood Cells # 0.010^3/ul Prothrombin Time 12.4Sec Prothrombin Time Ratio 1.0 INR International Normalized Ratio 0.92 Activated Partial Thromboplast Time 31.2Sec Lactic Acid Level 2.3mmol/L Urine Color LT. YELLOW Urine Clarity CLEAR Urine pH 5.5 Urine Specific [place] 1.010 Urine Ketones NEGATIVE Urine Nitrite NEGATIVE Urine Bilirubin NEGATIVE Urine Urobilinogen 0.2 E.U./dL Urine Leukocyte Esterase NEGATIVE Urine Hemoglobin NEGATIVE Urine Glucose NEGATIVE% Urine Total Protein NEGATIVE Current Medications Medications (Trade) Dose Ordered Sig/Westley Route PRN Reason Start Time Stop Time Status Last Admin Dose Admin Vancomycin HCl 250 ml @ 125 mls/hr ONCE STAT IVPB 08/19/16 23:00 08/20/16 00:59 Cefepime HCl (Maxipime 2gm/50 ml (Pmx)) 50 ml @ 100 mls/hr ONCE STAT IVPB 08/19/16 23:00 08/19/16 23:29 DC 08/19/16 23:31 Procedures/MDM Chest X-ray 1V Interpreted by me: Soft Tissue: Left lobe infiltrate Bones: No acute abnormalities Mediastinum/Cardiac Silhouette/Lungs: [No acute abnormalities] EKG: Rate/Rhythm: [Normal Sinus Rhythm] QRS, ST, T-waves: [No changes consistent w/ acute ischemia] Impression: [No evidence of ischemia or arrhythmia] This 65-year-old female presents to the emergency room for evaluation of shortness of breath. This did drop her oxygen saturation to 82% while on 2 L. The patient had a septic workup in the emergency room which revealed a left lobe pneumonia with a leukocytosis and lactic acidosis. This patient is hemodynamically stable at this time. I did not give this patient 30 cc/kg of IV normal saline due to the fact that she has 1+ pitting edema in the bilateral lower extremities and congestive heart failure. The patient was given 1 L of fluid. She was started on vancomycin and cefepime and will be placed in for admission to a [facility] floor as she is hemodynamically stable at this time with no requirement for vasopressors. Critical Care: Excluding all billable procedures Time: 35 minutes Treatments/Evaluations: Close monitoring and treatment of unstable vital signs, cardiorespiratory, and neurologic status, while maintaining tight balance of fluid, respiratory, and cardiac interventions. Departure Diagnosis: Primary Impression: Sepsis Additional Impressions: Left lower lobe pneumonia Type 2 diabetes mellitus with hyperglycemia Morbid obesity with BMI of 40.0-44.9, adult COPD (chronic obstructive pulmonary disease) Condition: MOISES Gregg DO Aug 19, 2016 23:46
[2016-08-20] MEDS ORDERED: ONDANSETRON 4 MG INJ IV PRN
--- NOTE | 2016-08-20 00:36 | HP ---
Date/Time of Note Date/Time of Note DATE: 08/20/16 TIME: 00:35 Assessment/Plan VTE Prophylaxis VTE Prophylaxis Intervention: SCD's Assessment/Plan Chief Complaint/Hosp Course This is a 65-year-old female being admitted to telemetry floor for: #1 Acute on chronic respiratory failure: Chest x-ray shows a left-sided pleural effusion superimposed with a possible underlying lung consolidation of the left side. She does have a history of heart failure as well and she has an elevated BNP of 2000. There may be some mild decompensation of her heart failure though she does not appear to be overtly volume overloaded. Will give her a dose of IV Lasix IV. Will also put in for ultrasound-guided thoracentesis of her left pleural effusion. I do feel there may be a component of noncompliance though patient states that she tries to follow all her instructions when she does leave the hospital. #2 Mild CHF exacerbation. Patient states that she has been trying to be very compliant with her salt intake as well as her liquid intake. At the current time will put patient on Lasix 40 mg IV 1 and reassess the patient. Monitor I' s and O's. Limit fluid intake to 1200 cc a day. Low-salt diet. #3 Healthcare associated pneumonia: Patient has elevated white blood cell count though she denies fevers chest x-ray shows consolidation. She was in the hospital within the last 2 months. At the current time will treat her with Vanco and cefepime. I would like to avoid fluoroquinolones for right now secondary to her cardiac history. #4 atrial fibrillation: At the current time she is relatively rate controlled with equipment monitor phototypesetting showing heart rate less than 105. Continue Cardizem, continue amiodarone, on beta-lam. Will hold Eliquis right now as patient may be undergoing thoracentesis. #5 hypertension: Continue home hypertensive medications #6 COPD: Continue inhalers #7 diabetes mellitus: Patient had an A1c of 8.5 last month. At the current time will hold her oral agents, put her on insulin sliding scale. And carb controlled diet. #8 hyperlipidemia: Continue statin #9 DVT and GI prophylaxis: We will hold Eliquis for right now until after she has her thoracentesis. Protonix Problems: HPI/ROS Admit Date/Time Admit Date/Time 08/20/16 Hx of Present Illness This is a 65-year-old female presents to the emergency room for evaluation of shortness of breath. Patient has presented multiple times in the past with very similar symptoms. She states that her shortness of breath is been present for 2 days duration and is worse with any exertion. The patient does have a history of COPD and she is on home oxygen. While in the emergency room this patient's vision did drop to 82% while moving to the bed. She does say she has a history of pneumonia in the past as well. She denies any recent fevers. She does state that she has had a cough that is nonproductive. She denies any recent chest pain or diaphoresis or lower extremity edema. Allergies: NKDA Medications: See May Const: As per HPI Eyes : No pain discharge or redness or change in visual acuity ENT: No pain, sore throat, congestion, congestion, dysphagia or discharge Respiratory: As per HPI Cardiovascular: No chest pain, palpitation, PND, or edema GI : no change in appetite, abdominal pain, nausea, vomiting, diarrhea, constipation, or change in the color his stool Genitourinary: No dysuria, hematuria, flank pain , discharge or CVA tenderness Musculoskeletal: No joint pain, back pain, neck pain, restricted range of motion in neck or joints Skin: No rash, bruising or hives Neuro: No headache, dizziness, syncope, seizure, focal weakness Endocrine: No polyuria, polydipsia, temperature intolerance Psych: No hallucination, depression, anxiety or suicidal ideation PMH/Family/Social Past Medical History CHF, COPD, diabetes mellitus, hypertension, atrial fibrillation, history of right breast carcinoma had chemotherapy in 2008 Past Surgical History total hysterectomy, tubal ligation, hernia repair, R.breast biopsy Past Surgical Hx: other Family History Significant Family History: no pertinent family hx Social History Alcohol Use: occasionally Smoking Status: Former smoker Exam/Review of Systems Vital Signs Vitals Vital Signs Date Time Temp Pulse Resp B/P Pulse Ox O2 Delivery O2 Flow Rate FiO2 08/20/16 00:20 105 20 121/92 Nasal Cannula 5.0 08/19/16 23:30 93 08/19/16 21:16 99.3 Exam Exam General: This is a pleasant 65-year-old female who is lying in bed comfortably and not in any acute distress at this time. HEENT: Atraumatic, normocephalic. The pupils are equal, round and reactive. Extraocular motor are intact. Nasal cannula in place Neck: Supple with full range of motion. No rigidity or meningismus Chest: Nontender Lungs: Decreased breath sounds over the left lower lung solis, mild appreciable rales of the lower left lung field. Heart: Normal S1-S2, Regular rhythm and rate. Abdomen: Soft, nontender. Grossly obese abdomen. Extremities: Normal to inspection, no edema no cyanosis Neurologic: Normal mental status, speech normal, cranial nerves II through XII are intact, motor and sensory are intact, no focal weakness Additional Comments PROCEDURE: XR Chest. CLINICAL INDICATION: Possible sepsis TECHNIQUE: Single AP portable chest COMPARISON: 06/21/2016 Chest x-ray FINDINGS: Cardiac silhouette is enlarged. Atherosclerotic calcification of the aorta. Increase size of left pleural effusion and/or consolidation. No pneumothorax. The osseous structures and soft tissues are unremarkable. IMPRESSION: 1. Increase size of left pleural effusion and/or consolidation. Cardiomegaly . RPTAT:AAJJ Physician Jose C Date Time Electronically viewed and signed by Physician Jose C on 08/19/2016 22:54 EKG: Rate/Rhythm: [Normal Sinus Rhythm] QRS, ST, T-waves: [No changes consistent w/ acute ischemia] As per ED physician documentation Labs Result Diagram: 08/19/16 2235 08/19/16 2153 Medications Medications Current Medications Sodium Chloride (NS) 1,000 ml @ 80 mls/hr [id number] IV ; Start 08/19/16 at 23:41; Stop 08/20/16 at 12:10 WILLIE DENG Aug 20, 2016 00:36
[2016-08-20 00:41] VITALS: BP 118/65; PULSE 83; RESP 16
[2016-08-20] MEDS ORDERED: IPRATROPIUM (NEB) 0.5 MG/2.5 ML AMP HHN PRN (01:00)
[2016-08-20] MEDS ORDERED: ACETAMINOPHEN 325 MG TAB PO PRN ×2 (01:00)
[2016-08-20] MEDS ORDERED: NACL 0.9% 3 ML SYG IV SCH (01:00)
[2016-08-20] MEDS ORDERED: LORAZEPAM 2 MG INJ IV PRN (01:00)
[2016-08-20] MEDS ORDERED: LEVALBUTEROL (NEB) 1.25 MG/0.5 ML AMP HHN PRN (01:00)
[2016-08-20] MEDS ORDERED: FUROSEMIDE 40 MG INJ IV ONE ×2 (01:00→07:00)
[2016-08-20] MEDS ORDERED: INSULIN ASPART [NOVOLOG] 3 ML PEN SC ONE (02:00)
[2016-08-20] MEDS ORDERED: ACCU-CHEK XX SCH (02:00)
[2016-08-20] MEDS ORDERED: DEXTROSE 50% 50 ML SYRINGE IV PRN ×2 (02:10)
[2016-08-20] MEDS ORDERED: GLUCAGON 1 MG INJ IM PRN (02:10)
[2016-08-20] MEDS ORDERED: GLUCOSE GEL 15 GRAM TUBE PO PRN ×2 (02:10)
[2016-08-20] MEDS ORDERED: GLUCOSE GEL 15 GRAM TUBE BUCCAL PRN (02:10)
[2016-08-20] MEDS ORDERED: VANCOMYCIN IV PER PHARMACY XX SCH (03:00)
[2016-08-20] MEDS ORDERED: VANCOMYCIN 1 GM in NS 250 ML IVPB ONE (03:30)
[2016-08-20] MEDS: CEFEPIME 2GM/50 ML (PMX) 50 ML IVPB SCH ×3 (05:57→22:13)
[2016-08-20] MEDS: PANTOPRAZOLE 40 MG INJ IV SCH (06:05)
[2016-08-20 08:02] VITALS: BP 134/69; RESP 16
[2016-08-20] MEDS: INSULIN ASPART [NOVOLOG] 3 ML PEN SC SCH ×6 (08:17→20:15)
[2016-08-20] MEDS: SALMETEROL/FLUTICASONE 250/50 INHA INH SCH ×2 (08:20→20:10)
[2016-08-20] MEDS: METOPROLOL 25 MG TAB PO SCH ×2 (08:20→20:10)
[2016-08-20] MEDS: DILTIAZEM (CD) 240 MG CAP PO SCH (08:21)
[2016-08-20] MEDS: SPIRONOLACTONE 25 MG TAB PO SCH (08:21)
[2016-08-20] MEDS: MULTIVITAMINS THERAPEUTIC TAB PO SCH (08:24)
[2016-08-20] MEDS ORDERED: AMIODARONE 200 MG TAB PO SCH (09:00)
--- NOTE | 2016-08-20 10:48 | CONS ---
Date/Time of Note Date/Time of Note DATE: 08/20/16 TIME: 10:43 Assessment/Plan Assessment/Plan Additional Assessment/Plan Chest x-ray was reviewed from yesterday which is showing moderate left pleural effusion. Assessment recommendations; 1. Patient admitted for recurrent left pleural effusion status post at least 2 thoracentesis in the recent past with recommendation. 2. Multiple other comorbidities including hypertension, diabetes, COPD, atrial fibrillation and CHF. 3. Possibly pneumonia. Patient will need to have pleurodesis performed. I would recommend against placing a Pleurx catheter on account of patient's overall excellent clinical status leaving the catheter and would expose her to risk of infection. Consultation Date/Type/Reason Admit Date/Time 08/20/16 Date of Consultation: Aug 20, 2016 Type of Consultation: Pulmonary Reason for Consultation Pulmonary consultations requested for evaluation of recurrent left pleural effusion. History of present illness; patient is a pleasant 65-year-old lady who came into the emergency room yesterday with increasing shortness of breath for the last couple of days. Patient however denies any coughing, wheezing or any sputum production or fever. Upon evaluation a chest x-ray was done which is now again demonstrating recurrent left moderate pleural effusion. Past medical history; 1. Patient with a history of CHF, status post multiple admissions in the recent past with at least 2 left-sided thoracentesis. 2. History of right breast biopsy, possibly with a history of right breast malignancy. 3. Diabetes. 4. COPD. 5. Hypertension. 6. Chronic atrial fibrillation. 7. History of total abdominal hysterectomy. Medications; reviewed. Allergies; none. Social history; patient is an ex-smoker. No history of alcohol or drug abuse. Family history; she is single. 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 Currently on disability. Review of systems; denies any headache, visual changes. Any chest pain, angina , wheezing. Denies any cough or sputum production. Does complain of shortness of breath. Denies any orthopnea. Denies any nausea, vomiting. Denies any edema. Any weight change. Any GI or urinary symptoms. Next General exam; elderly woman, appears quite overweight, currently in no distress. Past Surgical History Past Surgical Hx: other Social History Alcohol Use: occasionally Smoking Status: Former smoker Exam/Review of Systems Vital Signs Vitals Vital Signs Date Time Temp Pulse Resp B/P Pulse Ox O2 Delivery O2 Flow Rate FiO2 08/20/16 08:02 99.1 86 16 134/69 97 08/20/16 01:25 5.0 08/20/16 00:45 Nasal Cannula Intake and Output 08/19/16 08/19/16 08/20/16 15:00 23:00 07:00 Intake Total 850 ml Balance 850 ml Exam HEENT exam; supple neck, JVD difficult to see because of short neck. Pharynx is clear. No neck masses. No thyromegaly. Pupils are small bilaterally. Chest examination; diminished breath sound left lower lobe. Rest of the lung [place] are clear. S1-S2 audible, irregular rhythm. No murmurs. Abdomen examination; protuberant. Nontender. No organomegaly. Bowel sounds audible. Extremity examination; no peripheral edema. Pulses 1+ bilaterally. No clubbing. 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 Results Result Diagram: 08/19/16223408/19/163 Results 24 hrs Laboratory Tests Test 08/19/16 21:53 08/19/16 22:35 08/19/16 22:50 08/20/16 00:20 Sodium Level 136 Potassium Level 4.7 Chloride Level 91 L Carbon Dioxide Level 36 H Anion Gap 14 Blood Urea Nitrogen 17 Creatinine 0.87 Glucose Level 242 H Calcium Level 9.3 Total Bilirubin 0.2 Direct Bilirubin 0.00 Indirect Bilirubin 0.2 Aspartate Amino Transf (AST/SGOT) 46 Alanine Aminotransferase (ALT/SGPT) 60 Alkaline Phosphatase 185 H Troponin I < 0.012 Total Protein 7.7 Albumin 4.4 Globulin 3.30 H Albumin/Globulin Ratio 1.33 White Blood Count 14.3 H Red Blood Count 4.08 L Hemoglobin 11.6 L Hematocrit 38.0 Mean Corpuscular Volume 93.1 Mean Corpuscular Hemoglobin 28.4 L Mean Corpuscular Hemoglobin Concent 30.5 L Red Cell Distribution Width 16.8 H Platelet Count 345 Mean Platelet Volume 9.5 Neutrophils % 79.8 H Lymphocytes % 11.3 L Monocytes % 7.9 Eosinophils % 0.3 Basophils % 0.1 Nucleated Red Blood Cells % 0.0 Neutrophils # 11.4 H Lymphocytes # 1.6 Monocytes # 1.1 H Eosinophils # 0.1 Basophils # 0.0 Nucleated Red Blood Cells # 0.0 Prothrombin Time 12.4 Prothrombin Time Ratio 1.0 INR International Normalized Ratio 0.92 Activated Partial Thromboplast Time 31.2 Hemoglobin A1c 9.3 H Lactic Acid Level 2.3 H Urine Color LT. YELLOW Urine Clarity CLEAR Urine pH 5.5 Urine Specific [place] 1.010 Urine Ketones NEGATIVE Urine Nitrite NEGATIVE Urine Bilirubin NEGATIVE Urine Urobilinogen 0.2 E.U./dL Urine Leukocyte Esterase NEGATIVE Urine Hemoglobin NEGATIVE Urine Glucose NEGATIVE Urine Total Protein NEGATIVE B-Type Natriuretic Peptide 2070 H Test 08/20/16 01:39 08/20/16 02:13 08/20/16 02:22 08/20/16 08:06 Bedside Glucose 292 H 292 H 200 Lactic Acid Level 2.2 Medications Medications Current Medications Sodium Chloride (NS) 1,000 ml @ 80 mls/hr [id number] IV ; Start 08/19/16 at 23:41; Stop 08/20/16 at 12:10 Lorazepam (Ativan) 0.5 mg Q6H PRN IV ANXIETY; Start 08/20/16 at 01:00 Acetaminophen (Tylenol Tab) 650 mg Q6H PRN PO PAIN LEVEL 1-3 OR FEVER Last administered on 08/20/16 08:23; Admin Dose 650 MG; Start 08/20/16 at 01:00 Pantoprazole (Protonix Iv) 40 mg DAILY@06 IV Last administered on 08/20/16 06: 05; Admin Dose 40 MG; Start 08/20/16 at 06:00 Amiodarone HCl (Cordarone) 200 mg DAILY PO Last administered on 08/20/16 08:21 ; Admin Dose 200 MG; Start 08/20/16 at 09:00 Atorvastatin Calcium (Lipitor) 40 mg HS PO ; Start 08/20/16 at 21:00 Digoxin (Digoxin) 0.25 mg DAILY@13 PO ; Start 08/20/16 at 13:00 Diltiazem HCl (Cardizem Cd) 240 mg DAILY PO Last administered on 08/20/16 08:21 ; Admin Dose 240 MG; Start 08/20/16 at 09:00 Metoprolol Tartrate (Lopressor) 25 mg BID PO Last administered on 08/20/16 08: 20; Admin Dose 25 MG; Start 08/20/16 at 09:00 Multivitamins Therapeutic (Theragran) 1 tab DAILY PO Last administered on 08:24; Admin Dose 1 TAB; Start 08/20/16 at 09:00 Salmeterol Xinafoate/ Fluticasone (Advair 250/50 Diskus) 1 inh BID INH Last administered on 08/20/16 08:20; Admin Dose 1 INH; Start 08/20/16 at 09:00 Spironolactone (Aldactone) 25 mg DAILY PO Last administered on 08/20/16 08:21; Admin Dose 25 MG; Start 08/20/16 at 09:00 Diagnostic Test (Pha) (Accu-Chek) 1 ea 02 XX ; Start 08/21/16 at 02:00 Miscellaneous Information 1 ea NOTE XX ; Start 08/20/16 at 02:10 Glucose (Glutose) 15 gm Q15M PRN PO DECREASED GLUCOSE; Start 08/20/16 at 02:10 Glucose (Glutose) 22.5 gm Q15M PRN PO DECREASED GLUCOSE; Start 08/20/16 at 02:10 Dextrose (D50w Syringe) 25 ml Q15M PRN IV DECREASED GLUCOSE; Start 08/20/16 at 02:10 Dextrose (D50w Syringe) 50 ml Q15M PRN IV DECREASED GLUCOSE; Start 08/20/16 at 02:10 Glucagon (Glucagen) 1 mg Q15M PRN IM DECREASED GLUCOSE; Start 08/20/16 at 02:10 Glucose 15 gm 15 gm Q15M PRN BUCCAL DECREASED GLUCOSE; Start 08/20/16 at 02:10 Cefepime HCl 50 ml @ 100 mls/hr Q8 IVPB Last administered on 08/20/16 05:57; Admin Dose 100 MLS/HR; Start 08/20/16 at 06:00 Vancomycin HCl/ Sodium Chloride (Vancocin/NS) 250 ml @ 83.333 mls/ hr Q12H IVPB ; Start 08/20/16 at 12:00 MAGALYS CHAPIN Aug 20, 2016 10:48
[2016-08-20] MEDS ORDERED: ENOXAPARIN 100 MG/ML SYG SC SCH (11:00)
[2016-08-20] MEDS: VANCOMYCIN 1.5 GM in SOD CHLORIDE 0.9% 250 ML IVPB SCH (11:41)
--- NOTE | 2016-08-20 11:49 | CONS ---
Date/Time of Note Date/Time of Note DATE: 08/20/16 TIME: 11:43 Assessment/Plan Assessment/Plan Chief Complaint/Hosp Course Acute on chronic respiratory failure: Secondary to recurrent left pleural effusion. Chronic afib: rates controlled on 3 agents. On Eliquis which is held for thoracentesis Acute on chronic diastolic heart failure: Mild CHF by exam (best I have seen her in a while) COPD Recurrent left pleural effusion: s/p multiple thoras in the recent past. Plan for possible pleurodesis -continue diltiazem 240mg -MTP 25g BID -digoxin 250mcg, check level in am -bumex 1mg daily to keep even -restart Eliquis after procedure completed -decision for repeat thora vs pleurodesis per pulm Problems: Consultation Date/Type/Reason Admit Date/Time 08/20/16 Date of Consultation: Aug 20, 2016 Type of Consultation: Cardiology Reason for Consultation afib, CHF Referring Provider: BIBI TSANG Hx of Present Illness 65 yo F with a h/o chronic diastolic heart failure, chronic afib on Eliquis, recurrent pleural effusions, COPD on home oxygen, who presented due to hypoxia at home to the low 80s. She was found to have a recurrent left pleural effusion and possible underlying PNA. She notes that she has been doing well for the past 2 months but over the past few days has been having worsening of her SOB. She denies chest pain. Leg edema is minimal. She is compliant with meds and diet. per HPI Past Medical History per HPI Past Surgical History Past Surgical Hx: other Social History Alcohol Use: occasionally Smoking Status: Former smoker Exam/Review of Systems Vital Signs Vitals Vital Signs Date Time Temp Pulse Resp B/P Pulse Ox O2 Delivery O2 Flow Rate FiO2 08/20/16 08:40 Nasal Cannula 4.0 08/20/16 08:02 99.1 86 16 134/69 97 Intake and Output 08/19/16 08/19/16 08/20/16 15:00 23:00 07:00 Intake Total 850 ml Balance 850 ml Exam Constitutional: alert, oriented Psych: nl mood/affect, no complaints Head: atraumatic, normocephalic Neck: No jvd Respiratory: No clear to auscultation (left side diminished sounds ), No crackles/rales Cardiovascular: edema (1+), regular rate and rhythm, No systolic murmur Gastrointestinal: non-tender, soft Extremities: normal pulses 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: nl mental status, nl speech Skin: No rash or lesions Results EKG: afib, RBBB Result Diagram: 08/19/16223408/19/162152 Results 24 hrs Laboratory Tests Test 08/19/16 21:53 08/19/16 22:35 08/19/16 22:50 08/20/16 00:20 Sodium Level 136 Potassium Level 4.7 Chloride Level 91 L Carbon Dioxide Level 36 H Anion Gap 14 Blood Urea Nitrogen 17 Creatinine 0.87 Glucose Level 242 H Calcium Level 9.3 Total Bilirubin 0.2 Direct Bilirubin 0.00 Indirect Bilirubin 0.2 Aspartate Amino Transf (AST/SGOT) 46 Alanine Aminotransferase (ALT/SGPT) 60 Alkaline Phosphatase 185 H Troponin I < 0.012 Total Protein 7.7 Albumin 4.4 Globulin 3.30 H Albumin/Globulin Ratio 1.33 White Blood Count 14.3 H Red Blood Count 4.08 L Hemoglobin 11.6 L Hematocrit 38.0 Mean Corpuscular Volume 93.1 Mean Corpuscular Hemoglobin 28.4 L Mean Corpuscular Hemoglobin Concent 30.5 L Red Cell Distribution Width 16.8 H Platelet Count 345 Mean Platelet Volume 9.5 Neutrophils % 79.8 H Lymphocytes % 11.3 L Monocytes % 7.9 Eosinophils % 0.3 Basophils % 0.1 Nucleated Red Blood Cells % 0.0 Neutrophils # 11.4 H Lymphocytes # 1.6 Monocytes # 1.1 H Eosinophils # 0.1 Basophils # 0.0 Nucleated Red Blood Cells # 0.0 Prothrombin Time 12.4 Prothrombin Time Ratio 1.0 INR International Normalized Ratio 0.92 Activated Partial Thromboplast Time 31.2 Hemoglobin A1c 9.3 H Lactic Acid Level 2.3 H Urine Color LT. YELLOW Urine Clarity CLEAR Urine pH 5.5 Urine Specific [place] 1.010 Urine Ketones NEGATIVE Urine Nitrite NEGATIVE Urine Bilirubin NEGATIVE Urine Urobilinogen 0.2 E.U./dL Urine Leukocyte Esterase NEGATIVE Urine Hemoglobin NEGATIVE Urine Glucose NEGATIVE Urine Total Protein NEGATIVE B-Type Natriuretic Peptide 2070 H Test 08/20/16 01:39 08/20/16 02:13 08/20/16 02:22 08/20/16 08:06 Bedside Glucose 292 H 292 H 200 Lactic Acid Level 2.2 Medications Medications Current Medications Sodium Chloride (NS) 1,000 ml @ 80 mls/hr [id number] IV ; Start 08/19/16 at 23:41; Stop 08/20/16 at 12:10 Lorazepam (Ativan) 0.5 mg Q6H PRN IV ANXIETY; Start 08/20/16 at 01:00 Acetaminophen (Tylenol Tab) 650 mg Q6H PRN PO PAIN LEVEL 1-3 OR FEVER Last administered on 08/20/16 08:23; Admin Dose 650 MG; Start 08/20/16 at 01:00 Pantoprazole (Protonix Iv) 40 mg DAILY@06 IV Last administered on 08/20/16 06: 05; Admin Dose 40 MG; Start 08/20/16 at 06:00 Amiodarone HCl (Cordarone) 200 mg DAILY PO Last administered on 08/20/16 08:21 ; Admin Dose 200 MG; Start 08/20/16 at 09:00 Atorvastatin Calcium (Lipitor) 40 mg HS PO ; Start 08/20/16 at 21:00 Digoxin (Digoxin) 0.25 mg DAILY@13 PO ; Start 08/20/16 at 13:00 Diltiazem HCl (Cardizem Cd) 240 mg DAILY PO Last administered on 08/20/16 08:21 ; Admin Dose 240 MG; Start 08/20/16 at 09:00 Metoprolol Tartrate (Lopressor) 25 mg BID PO Last administered on 08/20/16 08: 20; Admin Dose 25 MG; Start 08/20/16 at 09:00 Multivitamins Therapeutic (Theragran) 1 tab DAILY PO Last administered on 08:24; Admin Dose 1 TAB; Start 08/20/16 at 09:00 Salmeterol Xinafoate/ Fluticasone (Advair 250/50 Diskus) 1 inh BID INH Last administered on 08/20/16 08:20; Admin Dose 1 INH; Start 08/20/16 at 09:00 Spironolactone (Aldactone) 25 mg DAILY PO Last administered on 08/20/16 08:21; Admin Dose 25 MG; Start 08/20/16 at 09:00 Diagnostic Test (Pha) (Accu-Chek) 1 ea 02 XX ; Start 08/21/16 at 02:00 Miscellaneous Information 1 ea NOTE XX ; Start 08/20/16 at 02:10 Glucose (Glutose) 15 gm Q15M PRN PO DECREASED GLUCOSE; Start 08/20/16 at 02:10 Glucose (Glutose) 22.5 gm Q15M PRN PO DECREASED GLUCOSE; Start 08/20/16 at 02:10 Dextrose (D50w Syringe) 25 ml Q15M PRN IV DECREASED GLUCOSE; Start 08/20/16 at 02:10 Dextrose (D50w Syringe) 50 ml Q15M PRN IV DECREASED GLUCOSE; Start 08/20/16 at 02:10 Glucagon (Glucagen) 1 mg Q15M PRN IM DECREASED GLUCOSE; Start 08/20/16 at 02:10 Glucose 15 gm 15 gm Q15M PRN BUCCAL DECREASED GLUCOSE; Start 08/20/16 at 02:10 Cefepime HCl 50 ml @ 100 mls/hr Q8 IVPB Last administered on 08/20/16t 05:57; Admin Dose 100 MLS/HR; Start 08/20/16 at 06:00 Vancomycin HCl/ Sodium Chloride (Vancocin/NS) 250 ml @ 83.333 mls/ hr Q12H IVPB ; Start 08/20/16 at 12:00 Enoxaparin Sodium (Lovenox) 120 mg Q12 SC ; Start 08/20/16 at 11:00 Insulin Glargine (Lantus) 40 unit DAILY@20 SC ; Start 08/20/16 at 20:00 AMY SLOAN Aug 20, 2016 11:49
[2016-08-20] MEDS: BUMETANIDE 1 MG TAB PO SCH (13:05)
[2016-08-20] MEDS: DIGOXIN 0.25 MG TAB PO SCH (13:06)
[2016-08-20 13:07] VITALS: BP 118/69; PULSE 70
[2016-08-20 19:48] VITALS: BP 100/61; RESP 20
[2016-08-20] MEDS: ATORVASTATIN 40 MG TAB PO SCH (20:10)
[2016-08-20] MEDS: INSULIN GLARGINE [LANtus] 3 ML PEN SC SCH (20:14)
[2016-08-20] MEDS: ENOXAPARIN 60 MG/0.6 ML SYG SC SCH (20:16)
[2016-08-21] MEDS: VANCOMYCIN 1.5 GM in SOD CHLORIDE 0.9% 250 ML IVPB SCH ×2 (01:11→12:03)
[2016-08-21] MEDS: ACCU-CHEK XX SCH (02:00)
[2016-08-21 05:59] LABS: ADD SCAN DIFF NO; BASOPHILS % 0.3 % (0.0-2.0); EOSINOPHILS # 0.1 10^3/ul (0.0-0.5); EOSINOPHILS % 0.8 % (0.0-7.0); HEMATOCRIT 35.2 % (37.0-47.0); LYMPHOCYTES # 1.3 10^3/ul (0.8-2.9); LYMPHOCYTES % 11.4 % (15.0-51.0); MEAN CORPUSCULAR HEMOGLOBIN 29.2 pg (29.0-33.0); MEAN CORPUSCULAR HGB CONC 31.3 g/dl (32.0-37.0); MEAN CORPUSCULAR VOLUME 93.4 fl (82.0-101.0); MEAN PLATELET VOLUME 10.1 fl (7.4-10.4); MONOCYTE # 0.9 10^3/ul (0.3-0.9); MONOCYTES % 7.5 % (0.0-11.0); NEUTROPHIL # 9.2 10^3/ul (1.6-7.5); NEUTROPHILS % 79.3 % (39.0-77.0); PLATELET COUNT 341 10^3/UL (140-415); RED BLOOD COUNT 3.77 10^6/ul (4.20-5.40); RED CELL DISTRIBUTION WIDTH 16.8 % (11.5-14.5); WHITE BLOOD COUNT 11.6 10^3/ul (4.8-10.8)
[2016-08-21] MEDS: PANTOPRAZOLE 40 MG INJ IV SCH (06:03)
[2016-08-21] MEDS: CEFEPIME 2GM/50 ML (PMX) 50 ML IVPB SCH ×3 (06:03→21:48)
[2016-08-21 06:36] LABS: ALBUMIN 4.1 g/dl (3.3-4.9); ALBUMIN/GLOBULIN RATIO 1.32; BILIRUBIN,INDIRECT 0.2 mg/dl (0-1.1); BILIRUBIN,TOTAL 0.2 mg/dl (0.2-1.3); CALCIUM 9.1 mg/dl (8.4-10.2); CREATININE 0.83 mg/dl (0.44-1.00); TOTAL PROTEIN 7.2 g/dl (6.1-8.1)
[2016-08-21 07:35] VITALS: BP 120/56; RESP 16
[2016-08-21] MEDS: INSULIN ASPART [NOVOLOG] 3 ML PEN SC SCH ×7 (08:18→20:11)
[2016-08-21] MEDS: METOPROLOL 25 MG TAB PO SCH ×2 (08:39→20:31)
[2016-08-21] MEDS: BUMETANIDE 1 MG TAB PO SCH (08:39)
[2016-08-21] MEDS: MULTIVITAMINS THERAPEUTIC TAB PO SCH (08:39)
[2016-08-21] MEDS: SALMETEROL/FLUTICASONE 250/50 INHA INH SCH ×2 (08:39→20:27)
[2016-08-21] MEDS: SPIRONOLACTONE 25 MG TAB PO SCH (08:39)
[2016-08-21] MEDS: DILTIAZEM (CD) 240 MG CAP PO SCH (08:40)
[2016-08-21 08:49] VITALS: BP 125/63; PULSE 113
[2016-08-21] MEDS: ENOXAPARIN 60 MG/0.6 ML SYG SC SCH ×2 (08:49→20:43)
--- NOTE | 2016-08-21 10:08 | RADRPT ---
PROCEDURE: Ultrasound chest CLINICAL INDICATION: Pleural effusion. TECHNIQUE: Sonographic evaluation of the chest was performed. Images were obtained to assess for pleural effusion. Soto scale imaging was utilized. Images were reviewed on a high-resolution PACS workstation. COMPARISON: 07/24/2016 FINDINGS: No sonographic evidence of pleural fluid is seen in either of the left or right chest. IMPRESSION: 1. No evidence of pleural effusion bilaterally. RPTAT: HH .Derick Valadez MD, MD Date Time Electronically viewed and signed by .Derick Valadez MD, MD on 08/21/2016 10:07 .R/
--- NOTE | 2016-08-21 10:25 | CONS ---
Date/Time of Note Date/Time of Note DATE: 08/21/16 TIME: 10:22 Assessment/Plan Assessment/Plan Chief Complaint/Hosp Course Acute on chronic respiratory failure: Secondary to ?recurrent left pleural effusion though not seen on ultrasound Chronic afib: rates controlled on 3 agents. On Eliquis which is held for thoracentesis Acute on chronic diastolic heart failure: Mild CHF by exam (best I have seen her in a while) COPD Recurrent left pleural effusion: s/p multiple thoras in the recent past. Apparently no effusion by ultrasound -continue diltiazem 240mg -MTP 25g BID -digoxin 250mcg (level ok) -bumex 1mg daily to keep even -restart Eliquis after procedure completed -?CT to better evaluate left lung opacity to determine if consolidation vs effusion Problems: Consultation Date/Type/Reason Admit Date/Time Aug 19, 2016 at 23:41 Initial Consult Date 08/20/16 Type of Consultation: Cardiology Referring Provider: BIBI TSANG 24 HR Interval Summary Free Text/Dictation No o/n events. Apparently no left pleural effusion by ultrasound so no thoracentesis done. Still with PLASCENCIA. Exam/Review of Systems Vital Signs Vitals Vital Signs Date Time Temp Pulse Resp B/P Pulse Ox O2 Delivery O2 Flow Rate FiO2 08/21/16 08:49 113 125/63 08/21/16 07:35 98.5 16 95 08/21/16 05:31 4.0 08/20/16 22:00 Nasal Cannula Intake and Output 08/20/16 08/20/16 08/21/16 15:00 23:00 07:00 Intake Total 250 ml 1420 ml 840 ml Balance 250 ml 1420 ml 840 ml Exam Constitutional: alert, oriented Psych: no complaints Head: atraumatic, normocephalic Neck: jvd (7cm) Respiratory: diminished breath sounds (left base), No clear to auscultation Cardiovascular: edema (trace), No regular rate and rhythm Gastrointestinal: non-tender, soft 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: nl mental status, nl speech Results Result Diagram: 08/21/16 0515 08/21/16 0515 Results 24 hrs Laboratory Tests Test 08/20/16 11:58 08/20/16 17:19 08/20/16 20:09 08/21/16 02:07 Bedside Glucose 287 H 208 221 H 303 H Test 08/21/16 05:15 08/21/16 08:02 White Blood Count 11.6 H Red Blood Count 3.77 L Hemoglobin 11.0 L Hematocrit 35.2 L Mean Corpuscular Volume 93.4 Mean Corpuscular Hemoglobin 29.2 Mean Corpuscular Hemoglobin Concent 31.3 L Red Cell Distribution Width 16.8 H Platelet Count 341 Mean Platelet Volume 10.1 Neutrophils % 79.3 H Lymphocytes % 11.4 L Monocytes % 7.5 Eosinophils % 0.8 Basophils % 0.3 Nucleated Red Blood Cells % 0.0 Neutrophils # 9.2 H Lymphocytes # 1.3 Monocytes # 0.9 Eosinophils # 0.1 Basophils # 0.0 Nucleated Red Blood Cells # 0.0 Sodium Level 142 Potassium Level 4.0 Chloride Level 92 L Carbon Dioxide Level 38 H Anion Gap 16 Blood Urea Nitrogen 16 Creatinine 0.83 Glucose Level 225 H Calcium Level 9.1 Total Bilirubin 0.2 Direct Bilirubin 0.00 Indirect Bilirubin 0.2 Aspartate Amino Transf (AST/SGOT) 38 Alanine Aminotransferase (ALT/SGPT) 64 Alkaline Phosphatase 165 H Total Protein 7.2 Albumin 4.1 Globulin 3.10 Albumin/Globulin Ratio 1.32 Digoxin Level 1.3 Bedside Glucose 236 H Medications Medications Current Medications Lorazepam (Ativan) 0.5 mg Q6H PRN IV ANXIETY; Start 08/20/16 at 01:00 Acetaminophen (Tylenol Tab) 650 mg Q6H PRN PO PAIN LEVEL 1-3 OR FEVER Last administered on 08/20/16 08:23; Admin Dose 650 MG; Start 08/20/16 at 01:00 Pantoprazole (Protonix Iv) 40 mg DAILY@06 IV Last administered on 08/21/16 06: 03; Admin Dose 40 MG; Start 08/20/16 at 06:00 Atorvastatin Calcium (Lipitor) 40 mg HS PO Last administered on 08/20/16 20:10 ; Admin Dose 40 MG; Start 08/20/16 at 21:00 Digoxin (Digoxin) 0.25 mg DAILY@13 PO Last administered on 08/20/16 13:06; Admin Dose 0.25 MG; Start 08/20/16 at 13:00 Diltiazem HCl (Cardizem Cd) 240 mg DAILY PO Last administered on 08/21/16 08:40 ; Admin Dose 240 MG; Start 08/20/16 at 09:00 Metoprolol Tartrate (Lopressor) 25 mg BID PO Last administered on 08/21/16 08: 39; Admin Dose 25 MG; Start 08/20/16 at 09:00 Multivitamins Therapeutic (Theragran) 1 tab DAILY PO Last administered on 08:39; Admin Dose 1 TAB; Start 08/20/16 at 09:00 Salmeterol Xinafoate/ Fluticasone (Advair 250/50 Diskus) 1 inh BID INH Last administered on 08/21/16 08:39; Admin Dose 1 INH; Start 08/20/16 at 09:00 Spironolactone (Aldactone) 25 mg DAILY PO Last administered on 08/21/16 08:39; Admin Dose 25 MG; Start 08/20/16 at 09:00 Diagnostic Test (Pha) (Accu-Chek) 1 ea 02 XX ; Start 08/21/16 at 02:00 Miscellaneous Information 1 ea NOTE XX ; Start 08/20/16 at 02:10 Glucose (Glutose) 15 gm Q15M PRN PO DECREASED GLUCOSE; Start 08/20/16 at 02:10 Glucose (Glutose) 22.5 gm Q15M PRN PO DECREASED GLUCOSE; Start 08/20/16 at 02:10 Dextrose (D50w Syringe) 25 ml Q15M PRN IV DECREASED GLUCOSE; Start 08/20/16 at 02:10 Dextrose (D50w Syringe) 50 ml Q15M PRN IV DECREASED GLUCOSE; Start 08/20/16 at 02:10 Glucagon (Glucagen) 1 mg Q15M PRN IM DECREASED GLUCOSE; Start 08/20/16 at 02:10 Glucose 15 gm 15 gm Q15M PRN BUCCAL DECREASED GLUCOSE; Start 08/20/16 at 02:10 Cefepime HCl 50 ml @ 100 mls/hr Q8 IVPB Last administered on 08/21/16 06:03; Admin Dose 100 MLS/HR; Start 08/20/16 at 06:00 Vancomycin HCl/ Sodium Chloride (Vancocin/NS) 250 ml @ 83.333 mls/ hr Q12H IVPB Last administered on 08/21/16 01:11; Admin Dose 83.333 MLS/HR; Start 6/3/ 17 at 12:00 Insulin Glargine (Lantus) 40 unit DAILY@20 SC Last administered on 08/20/16 20: 14; Admin Dose 40 UNIT; Start 08/20/16 at 20:00 Enoxaparin Sodium (Lovenox) 120 mg Q12 SC Last administered on 08/21/16 08:49; Admin Dose 120 MG; Start 08/20/16 at 21:00 Bumetanide (Bumex) 1 mg DAILY PO Last administered on 08/21/16 08:39; Admin Dose 1 MG; Start 08/20/16 at 12:00 AMY SLOAN Aug 21, 2016 10:25
--- NOTE | 2016-08-21 11:13 | PN ---
Date/Time of Note Date/Time of Note DATE: 08/21/16 TIME: 11:10 Assessment/Plan VTE Prophylaxis VTE Prophylaxis Intervention: heparin Lines/Catheters IV [facility]from [facility]ine [facility] Urinary Cath still in place: No Assessment/Plan Problems: (1) Left lower lobe pneumonia Status: Acute Comment: Given that this was present in April and the CT scan report that was generated in April I am somewhat concerned. Repeat her CT scan but we may need to have her receive bronchoscopy to make sure were not dealing with a more sinister issue Qualifiers: Pneumonia type: due to unspecified organism Qualified Code: J18.1 - Pneumonia of left lower lobe due to infectious organism (2) COPD (chronic obstructive pulmonary disease) Status: Chronic Comment: Her control is fair and she is chronically oxygen dependent. Try and add to her regimen Hammad Montella cast which may have a minimal benefit for her. 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: with extermination supervisor use Qualified Code : E11.65 - Type 2 diabetes mellitus with hyperglycemia, with long-term current use of insulin (4) Morbid obesity with BMI of 40.0-44.9, adult Status: Chronic Comment: Calorie restriction diet (5) Essential hypertension Status: Chronic Comment: Adequate control at the present time (6) Hyperlipidemia Status: Chronic Comment: On statin therapy Qualifiers: Hyperlipidemia type: pure hypercholesterolemia Qualified Code: E78.00 - Pure hypercholesterolemia (7) Diastolic dysfunction, left ventricle Status: Chronic Comment: On beta-blockade at low-dose along with calcium channel lam (8) Pulmonary hypertension Status: Chronic Comment: Noted. This is not a candidate for sildenafil (9) Hypoventilation associated with obesity syndrome Status: Chronic Comment: Consider nocturnal BiPAP Subjective 24 Hr Interval Summary Free Text/Dictation Older female sitting in a chair with oxygen on reports she is doing fair Constitutional: no complaints (No fever chills or sweats) Respiratory: shortness of breath (Chronic shortness of breath without change) Cardiovascular: no complaints Gastrointestinal: no complaints Genitourinary: no complaints Exam/Review of Systems Vital Signs Vitals Vital Signs Date Time Temp Pulse Resp B/P Pulse Ox O2 Delivery O2 Flow Rate FiO2 08/21/16 10:52 Nasal Cannula 4.0 08/21/16 08:49 113 125/63 08/21/16 07:35 98.5 16 95 Intake and Output 08/20/16 08/20/16 08/21/16 15:00 23:00 07:00 Intake Total 250 ml 1420 ml 840 ml Balance 250 ml 1420 ml 840 ml Exam Constitutional: alert, oriented Neck: non-tender, supple Respiratory: diminished breath sounds, wheezing (Increased AP diameter decreased I:E ratio) Cardiovascular: jugular venous distention (JVD), other (No S3 no S4), regular rate and rhythm Gastrointestinal: nl liver, spleen, non-tender, soft (Protuberant and obese) Results Result Diagram: 08/21/16 0515 08/21/16 0515 Results 24 hrs Laboratory Tests Test 08/20/16 11:58 08/20/16 17:19 08/20/16 20:09 08/21/16 02:07 Bedside Glucose 287 H 208 221 H 303 H Test 08/21/16 05:15 08/21/16 08:02 White Blood Count 11.6 H Red Blood Count 3.77 L Hemoglobin 11.0 L Hematocrit 35.2 L Mean Corpuscular Volume 93.4 Mean Corpuscular Hemoglobin 29.2 Mean Corpuscular Hemoglobin Concent 31.3 L Red Cell Distribution Width 16.8 H Platelet Count 341 Mean Platelet Volume 10.1 Neutrophils % 79.3 H Lymphocytes % 11.4 L Monocytes % 7.5 Eosinophils % 0.8 Basophils % 0.3 Nucleated Red Blood Cells % 0.0 Neutrophils # 9.2 H Lymphocytes # 1.3 Monocytes # 0.9 Eosinophils # 0.1 Basophils # 0.0 Nucleated Red Blood Cells # 0.0 Sodium Level 142 Potassium Level 4.0 Chloride Level 92 L Carbon Dioxide Level 38 H Anion Gap 16 Blood Urea Nitrogen 16 Creatinine 0.83 Glucose Level 225 H Calcium Level 9.1 Total Bilirubin 0.2 Direct Bilirubin 0.00 Indirect Bilirubin 0.2 Aspartate Amino Transf (AST/SGOT) 38 Alanine Aminotransferase (ALT/SGPT) 64 Alkaline Phosphatase 165 H Total Protein 7.2 Albumin 4.1 Globulin 3.10 Albumin/Globulin Ratio 1.32 Digoxin Level 1.3 Bedside Glucose 236 H Medications Medications Current Medications Lorazepam (Ativan) 0.5 mg Q6H PRN IV ANXIETY; Start 08/20/16 at 01:00 Acetaminophen (Tylenol Tab) 650 mg Q6H PRN PO PAIN LEVEL 1-3 OR FEVER Last administered on 08/20/16 08:23; Admin Dose 650 MG; Start 08/20/16 at 01:00 Pantoprazole (Protonix Iv) 40 mg DAILY@06 IV Last administered on 08/21/16 06: 03; Admin Dose 40 MG; Start 08/20/16 at 06:00 Atorvastatin Calcium (Lipitor) 40 mg HS PO Last administered on 08/20/16 20:10 ; Admin Dose 40 MG; Start 08/20/16 at 21:00 Digoxin (Digoxin) 0.25 mg DAILY@13 PO Last administered on 08/20/16 13:06; Admin Dose 0.25 MG; Start 08/20/16 at 13:00 Diltiazem HCl (Cardizem Cd) 240 mg DAILY PO Last administered on 08/21/16 08:40 ; Admin Dose 240 MG; Start 08/20/16 at 09:00 Metoprolol Tartrate (Lopressor) 25 mg BID PO Last administered on 08/21/16 08: 39; Admin Dose 25 MG; Start 08/20/16 at 09:00 Multivitamins Therapeutic (Theragran) 1 tab DAILY PO Last administered on 08:39; Admin Dose 1 TAB; Start 08/20/16 at 09:00 Salmeterol Xinafoate/ Fluticasone (Advair 250/50 Diskus) 1 inh BID INH Last administered on 08/21/16 08:39; Admin Dose 1 INH; Start 08/20/16 at 09:00 Spironolactone (Aldactone) 25 mg DAILY PO Last administered on 08/21/16 08:39; Admin Dose 25 MG; Start 08/20/16 at 09:00 Diagnostic Test (Pha) (Accu-Chek) 1 ea 02 XX ; Start 08/21/16 at 02:00 Miscellaneous Information 1 ea NOTE XX ; Start 08/20/16 at 02:10 Glucose (Glutose) 15 gm Q15M PRN PO DECREASED GLUCOSE; Start 08/20/16 at 02:10 Glucose (Glutose) 22.5 gm Q15M PRN PO DECREASED GLUCOSE; Start 08/20/16 at 02:10 Dextrose (D50w Syringe) 25 ml Q15M PRN IV DECREASED GLUCOSE; Start 08/20/16 at 02:10 Dextrose (D50w Syringe) 50 ml Q15M PRN IV DECREASED GLUCOSE; Start 08/20/16 at 02:10 Glucagon (Glucagen) 1 mg Q15M PRN IM DECREASED GLUCOSE; Start 08/20/16 at 02:10 Glucose 15 gm 15 gm Q15M PRN BUCCAL DECREASED GLUCOSE; Start 08/20/16 at 02:10 Cefepime HCl 50 ml @ 100 mls/hr Q8 IVPB Last administered on 08/21/16 06:03; Admin Dose 100 MLS/HR; Start 08/20/16 at 06:00 Vancomycin HCl/ Sodium Chloride (Vancocin/NS) 250 ml @ 83.333 mls/ hr Q12H IVPB Last administered on 08/21/16 01:11; Admin Dose 83.333 MLS/HR; Start at 12:00 Insulin Glargine (Lantus) 40 unit DAILY@20 SC Last administered on 08/20/16 20: 14; Admin Dose 40 UNIT; Start 08/20/16 at 20:00 Enoxaparin Sodium (Lovenox) 120 mg Q12 SC Last administered on 08/21/16 08:49; Admin Dose 120 MG; Start 08/20/16 at 21:00 Bumetanide (Bumex) 1 mg DAILY PO Last administered on 08/21/16 08:39; Admin Dose 1 MG; Start 08/20/16 at 12:00 LOLLY JAIN MD Aug 21, 2016 11:13
[2016-08-21] MEDS ORDERED: MAGNESIUM HYDROXIDE 30ML CUP PO ONE (11:30)
--- NOTE | 2016-08-21 13:13 | CONS ---
Date/Time of Note Date/Time of Note DATE: 08/21/16 TIME: 13:11 Assessment/Plan Assessment/Plan Additional Assessment/Plan Assessment recommendations; 1. Patient admitted shortness of breath due to left lower lobe pneumonia with appearance of pleural effusion, however ultrasound of the chest is negative for any effusion. 2. History of CHF, hypertension, diabetes, and atrial fibrillation. Continue current antibiotics. Obtain follow-up chest x-ray in 48 hours. Consultation Date/Type/Reason Admit Date/Time Aug 19, 2016 at 23:41 Initial Consult Date 08/20/16 Type of Consultation: Pulmonary Referring Provider: BIBI TSANG 24 HR Interval Summary Free Text/Dictation Patient condition stable. Denies any shortness of breath, chest pain. Any coughing or sputum production. General exam; elderly lady, awake alert currently in no distress. Able to lay down flat in bed. Exam/Review of Systems Vital Signs Vitals Vital Signs Date Time Temp Pulse Resp B/P Pulse Ox O2 Delivery O2 Flow Rate FiO2 08/21/16 10:52 Nasal Cannula 4.0 08/21/16 08:49 113 125/63 08/21/16 07:35 98.5 16 95 Intake and Output 08/20/16 08/20/16 08/21/16 15:00 23:00 07:00 Intake Total 250 ml 1420 ml 840 ml Balance 250 ml 1420 ml 840 ml Exam HEENT exam is; supple neck, no JVD. No lymphadenopathy midline trachea. No thyromegaly. Pupils are midsize and reactive to light. No neck bruits. Chest examined; diminished breath on lung bases bilaterally. S1-S2 audible, no murmurs. Irregular rhythm. Upper lobes are clear to auscultation. Abdomen examination; soft, protuberant. Nontender. No organomegaly. Bowel sounds audible. Extremity examination; peripheral edema. Pulses 1+ bilaterally. SINGLE RESOURCE BOSS examination; no focal deficit. Results Result Diagram: 08/21/16 0515 08/21/16 0515 Results 24 hrs Laboratory Tests Test 08/20/16 17:19 08/20/16 20:09 08/21/16 02:07 08/21/16 05:15 Bedside Glucose 208 221 H 303 H White Blood Count 11.6 H Red Blood Count 3.77 L Hemoglobin 11.0 L Hematocrit 35.2 L Mean Corpuscular Volume 93.4 Mean Corpuscular Hemoglobin 29.2 Mean Corpuscular Hemoglobin Concent 31.3 L Red Cell Distribution Width 16.8 H Platelet Count 341 Mean Platelet Volume 10.1 Neutrophils % 79.3 H Lymphocytes % 11.4 L Monocytes % 7.5 Eosinophils % 0.8 Basophils % 0.3 Nucleated Red Blood Cells % 0.0 Neutrophils # 9.2 H Lymphocytes # 1.3 Monocytes # 0.9 Eosinophils # 0.1 Basophils # 0.0 Nucleated Red Blood Cells # 0.0 Sodium Level 142 Potassium Level 4.0 Chloride Level 92 L Carbon Dioxide Level 38 H Anion Gap 16 Blood Urea Nitrogen 16 Creatinine 0.83 Glucose Level 225 H Calcium Level 9.1 Total Bilirubin 0.2 Direct Bilirubin 0.00 Indirect Bilirubin 0.2 Aspartate Amino Transf (AST/SGOT) 38 Alanine Aminotransferase (ALT/SGPT) 64 Alkaline Phosphatase 165 H Total Protein 7.2 Albumin 4.1 Globulin 3.10 Albumin/Globulin Ratio 1.32 Digoxin Level 1.3 Test 08/21/16 08:02 08/21/16 12:02 Bedside Glucose 236 H 244 H Medications Medications Current Medications Lorazepam (Ativan) 0.5 mg Q6H PRN IV ANXIETY; Start 08/20/16 at 01:00 Acetaminophen (Tylenol Tab) 650 mg Q6H PRN PO PAIN LEVEL 1-3 OR FEVER Last administered on 08/20/16 08:23; Admin Dose 650 MG; Start 08/20/16 at 01:00 Pantoprazole (Protonix Iv) 40 mg DAILY@06 IV Last administered on 08/21/16 06: 03; Admin Dose 40 MG; Start 08/20/16 at 06:00 Atorvastatin Calcium (Lipitor) 40 mg HS PO Last administered on 08/20/16 20:10 ; Admin Dose 40 MG; Start 08/20/16 at 21:00 Digoxin (Digoxin) 0.25 mg DAILY@13 PO Last administered on 08/20/16 13:06; Admin Dose 0.25 MG; Start 08/20/16 at 13:00 Diltiazem HCl (Cardizem Cd) 240 mg DAILY PO Last administered on 08/21/16 08:40 ; Admin Dose 240 MG; Start 08/20/16 at 09:00 Metoprolol Tartrate (Lopressor) 25 mg BID PO Last administered on 08/21/16 08: 39; Admin Dose 25 MG; Start 08/20/16 at 09:00 Multivitamins Therapeutic (Theragran) 1 tab DAILY PO Last administered on 08:39; Admin Dose 1 TAB; Start 08/20/16 at 09:00 Salmeterol Xinafoate/ Fluticasone (Advair 250/50 Diskus) 1 inh BID INH Last administered on 08/21/16 08:39; Admin Dose 1 INH; Start 08/20/16 at 09:00 Spironolactone (Aldactone) 25 mg DAILY PO Last administered on 08/21/16 08:39; Admin Dose 25 MG; Start 08/20/16 at 09:00 Diagnostic Test (Pha) (Accu-Chek) 1 ea 02 XX ; Start 08/21/16 at 02:00 Miscellaneous Information 1 ea NOTE XX ; Start 08/20/16 at 02:10 Glucose (Glutose) 15 gm Q15M PRN PO DECREASED GLUCOSE; Start 08/20/16 at 02:10 Glucose (Glutose) 22.5 gm Q15M PRN PO DECREASED GLUCOSE; Start 08/20/16 at 02:10 Dextrose (D50w Syringe) 25 ml Q15M PRN IV DECREASED GLUCOSE; Start 08/20/16 at 02:10 Dextrose (D50w Syringe) 50 ml Q15M PRN IV DECREASED GLUCOSE; Start 08/20/16 at 02:10 Glucagon (Glucagen) 1 mg Q15M PRN IM DECREASED GLUCOSE; Start 08/20/16 at 02:10 Glucose 15 gm 15 gm Q15M PRN BUCCAL DECREASED GLUCOSE; Start 08/20/16 at 02:10 Cefepime HCl 50 ml @ 100 mls/hr Q8 IVPB Last administered on 08/21/16 06:03; Admin Dose 100 MLS/HR; Start 08/20/16 at 06:00 Vancomycin HCl/ Sodium Chloride (Vancocin/NS) 250 ml @ 83.333 mls/ hr Q12H IVPB Last administered on 08/21/16 12:03; Admin Dose 83.333 MLS/HR; Start at 12:00 Insulin Glargine (Lantus) 40 unit DAILY@20 SC Last administered on 6/3/17at 20: 14; Admin Dose 40 UNIT; Start 08/20/16 at 20:00 Enoxaparin Sodium (Lovenox) 120 mg Q12 SC Last administered on 08/21/16 08:49; Admin Dose 120 MG; Start 08/20/16 at 21:00 Bumetanide (Bumex) 1 mg DAILY PO Last administered on 08/21/16 08:39; Admin Dose 1 MG; Start 08/20/16 at 12:00 Montelukast Sodium (Singulair) 10 mg HS PO ; Start 08/21/16 at 21:00 Theophylline (Dorian-24) 200 mg QHS PO ; Start 08/21/16 at 21:00 Miscellaneous Information (*Rx Drug Level Order Reminder*) VANCOMYCIN TROUGH LEVEL... ONCE ONCE XX ; Start 08/21/16 at 23:00; Stop 08/21/16 at 23:01 MAGALYS CHAPIN Aug 21, 2016 13:13
[2016-08-21] MEDS: DIGOXIN 0.25 MG TAB PO SCH (13:23)
[2016-08-21 13:24] VITALS: PULSE 77
[2016-08-21] MEDS ORDERED: IODIXANOL LOCM 100 ML BTL ONE (18:14)
[2016-08-21] MEDS ORDERED: SOD CHLORIDE 0.9% 100 ML ONE (18:14)
[2016-08-21] MEDS: INSULIN GLARGINE [LANtus] 3 ML PEN SC SCH (20:11)
[2016-08-21 20:21] VITALS: BP 152/82; RESP 18
[2016-08-21] MEDS: ATORVASTATIN 40 MG TAB PO SCH (20:27)
[2016-08-21] MEDS: THEOPHYLLINE (SR) 200 MG CAPSR PO SCH (20:27)
[2016-08-21] MEDS: MONTELUKAST 10 MG TAB PO SCH (20:31)
[2016-08-22] MEDS: VANCOMYCIN 1.5 GM in SOD CHLORIDE 0.9% 250 ML IVPB SCH ×2 (00:02→12:41)
[2016-08-22] MEDS: ACCU-CHEK XX SCH (01:16)
[2016-08-22] MEDS: PANTOPRAZOLE 40 MG INJ IV SCH (06:06)
[2016-08-22] MEDS: CEFEPIME 2GM/50 ML (PMX) 50 ML IVPB SCH ×4 (06:06→23:07)
[2016-08-22 07:32] VITALS: BP 113/57; RESP 18
[2016-08-22] MEDS: INSULIN ASPART [NOVOLOG] 3 ML PEN SC SCH ×7 (08:10→21:15)
--- NOTE | 2016-08-22 08:34 | CONS ---
Date/Time of Note Date/Time of Note DATE: 08/22/16 TIME: 08:33 Assessment/Plan Assessment/Plan Chief Complaint/Hosp Course Acute on chronic respiratory failure: Secondary to ?recurrent left pleural effusion though not seen on ultrasound Chronic afib: rates controlled on 3 agents. On Eliquis which is held for thoracentesis Acute on chronic diastolic heart failure: Mild CHF by exam (best I have seen her in a while) COPD Recurrent left pleural effusion: s/p multiple thoras in the recent past. Apparently no effusion by ultrasound -continue diltiazem 240mg -MTP 25g BID -digoxin 250mcg (level ok) -bumex 1mg daily to keep even -restart Eliquis after procedure completed -?CT to better evaluate left lung opacity to determine if consolidation vs effusion Problems: Consultation Date/Type/Reason Admit Date/Time Aug 19, 2016 at 23:41 Initial Consult Date 08/20/16 Type of Consultation: Cardiology Referring Provider: BIBI TSANG 24 HR Interval Summary Free Text/Dictation No o/n events. Feels the same Exam/Review of Systems Vital Signs Vitals Vital Signs Date Time Temp Pulse Resp B/P Pulse Ox O2 Delivery O2 Flow Rate FiO2 08/22/16 07:32 98.3 61 18 113/57 94 08/21/16 20:15 Nasal Cannula 4.0 Intake and Output 08/21/16 08/21/16 08/22/16 15:00 23:00 07:00 Intake Total 2620 ml 1330 ml Output Total 1200 ml Balance 1420 ml 1330 ml Exam Constitutional: alert, oriented Head: atraumatic, normocephalic Neck: No jvd (difficult ) Respiratory: diminished breath sounds, No clear to auscultation Cardiovascular: edema (trace), regular rate and rhythm, No systolic murmur Gastrointestinal: non-tender, soft 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: nl mental status, nl speech Results Result Diagram: 08/21/16 0515 08/21/16 0515 Results 24 hrs Laboratory Tests Test 08/21/16 12:02 08/21/16 17:16 08/21/16 20:03 08/21/16 23:01 Bedside Glucose 244 H 234 H 195 Vancomycin Level Trough 15.1 Test 08/22/16 01:12 08/22/16 07:47 Bedside Glucose 321 H 200 Medications Medications Current Medications Lorazepam (Ativan) 0.5 mg Q6H PRN IV ANXIETY; Start 08/20/16 at 01:00 Acetaminophen (Tylenol Tab) 650 mg Q6H PRN PO PAIN LEVEL 1-3 OR FEVER Last administered on 08/20/16 08:23; Admin Dose 650 MG; Start 08/20/16 at 01:00 Pantoprazole (Protonix Iv) 40 mg DAILY@06 IV Last administered on 08/22/16 06: 06; Admin Dose 40 MG; Start 08/20/16 at 06:00 Atorvastatin Calcium (Lipitor) 40 mg HS PO Last administered on 08/21/16 20:27 ; Admin Dose 40 MG; Start 08/20/16 at 21:00 Digoxin (Digoxin) 0.25 mg DAILY@13 PO Last administered on 08/21/16 13:23; Admin Dose 0.25 MG; Start 08/20/16 at 13:00 Diltiazem HCl (Cardizem Cd) 240 mg DAILY PO Last administered on 08/21/16 08:40 ; Admin Dose 240 MG; Start 08/20/16 at 09:00 Metoprolol Tartrate (Lopressor) 25 mg BID PO Last administered on 08/21/16 20: 31; Admin Dose 25 MG; Start 08/20/16 at 09:00 Multivitamins Therapeutic (Theragran) 1 tab DAILY PO Last administered on 08:39; Admin Dose 1 TAB; Start 08/20/16 at 09:00 Salmeterol Xinafoate/ Fluticasone (Advair 250/50 Diskus) 1 inh BID INH Last administered on 08/21/16 20:27; Admin Dose 1 INH; Start 08/20/16 at 09:00 Spironolactone (Aldactone) 25 mg DAILY PO Last administered on 08/21/16 08:39; Admin Dose 25 MG; Start 08/20/16 at 09:00 Diagnostic Test (Pha) (Accu-Chek) 1 ea 02 XX ; Start 08/21/16 at 02:00 Miscellaneous Information 1 ea NOTE XX ; Start 08/20/16 at 02:10 Glucose (Glutose) 15 gm Q15M PRN PO DECREASED GLUCOSE; Start 08/20/16 at 02:10 Glucose (Glutose) 22.5 gm Q15M PRN PO DECREASED GLUCOSE; Start 08/20/16 at 02:10 Dextrose (D50w Syringe) 25 ml Q15M PRN IV DECREASED GLUCOSE; Start 08/20/16 at 02:10 Dextrose (D50w Syringe) 50 ml Q15M PRN IV DECREASED GLUCOSE; Start 08/20/16 at 02:10 Glucagon (Glucagen) 1 mg Q15M PRN IM DECREASED GLUCOSE; Start 08/20/16 at 02:10 Glucose 15 gm 15 gm Q15M PRN BUCCAL DECREASED GLUCOSE; Start 08/20/16 at 02:10 Cefepime HCl 50 ml @ 100 mls/hr Q8 IVPB Last administered on 08/22/16 06:06; Admin Dose 100 MLS/HR; Start 08/20/16 at 06:00 Vancomycin HCl/ Sodium Chloride (Vancocin/NS) 250 ml @ 83.333 mls/ hr Q12H IVPB Last administered on 08/22/16 00:02; Admin Dose 83.333 MLS/HR; Start at 12:00 Insulin Glargine (Lantus) 40 unit DAILY@20 SC Last administered on 08/21/16 20: 11; Admin Dose 40 UNIT; Start 08/20/16 at 20:00 Enoxaparin Sodium (Lovenox) 120 mg Q12 SC Last administered on 08/21/16 20:43; Admin Dose 120 MG; Start 08/20/16 at 21:00 Bumetanide (Bumex) 1 mg DAILY PO Last administered on 08/21/16 08:39; Admin Dose 1 MG; Start 08/20/16 at 12:00 Montelukast Sodium (Singulair) 10 mg HS PO ; Start 08/21/16 at 21:00 Theophylline (Dorian-24) 200 mg QHS PO Last administered on 08/21/16 20:27; Admin Dose 200 MG; Start 08/21/16 at 21:00 AMY SLOAN Aug 22, 2016 08:34
[2016-08-22] MEDS: SALMETEROL/FLUTICASONE 250/50 INHA INH SCH ×2 (08:44→21:09)
--- NOTE | 2016-08-22 08:45 | RADRPT ---
PROCEDURE: CT CHEST WITH CONTRAST CLINICAL INDICATION: Shortness of breath TECHNIQUE: Volumetrically acquired images of the thorax obtained with intravenous contrast were re formatted in the axial, coronal, and sagittal planes. CTDI = 16.7 mGy; DLP = 629 mGy-cm. 80 cc of O mnipaque was administered. One or more of the following dose reduction technique were used: Automat ic exposure control, adjustment of the mA and/or kV according to patient size, and use of iterative reconstruction technique. COMPARISON: CT scan from 05/05/2016 and chest x-ray from 08/20/2016. FINDINGS: LOWER NECK AND CHEST WALL: Normal. AIRWAYS: The trachea and large airways are normal. Possible stenosis of the left lower lobe bronch us. LUNGS: There is complete atelectasis of the left lower lobe with partial atelectasis of the left upp er lobe. Areas of hypo enhancement seen within the atelectatic left lower lobe No suspicious nodule s, masses, or consolidation. PLEURA: Interval increase in small moderate loculated left pleural effusion with associated atelecta sis.. MEDIASTINUM: No mediastinal mass. LYMPH NODES: No significant axillary, hilar, or mediastinal lymphadenopathy by CT size criteria. CARDIAC: Moderate cardiomegaly. No pericardial effusion. VASCULAR: The main pulmonary measures 38 mm. Aortic and coronary atherosclerotic calcifications ar e present. OSSEOUS: No suspicious osseous lesions. Scattered degenerative changes of the thoracic spine is vis ualized. Limited evaluation of the upper abdomen demonstrates a nonspecific 18 mm left adrenal nodule, stable from prior study. IMPRESSION: 1. Again demonstrated is possible obstructing lesion or stenosis seen in the left lower lobe bronch us with associated postobstructive atelectasis. Areas of hypo enhancement seen within the atelectat ic lung. Intercurrent process within the atelectatic lung cannot be excluded. Consider evaluation w ith bronchoscopy to exclude a left lower lobe bronchial lesion. 2. Aortic and coronary atherosclerosis. 3. Interval increase in small to moderate left pleural effusion with associated atelectasis. 4. Cardiomegaly. 5.Enlargement of the main pulmonary artery may suggest pulmonary arterial hypertension.. 6. Stable left adrenal nodule. RPTAT:PP .Ori Moreland MD, Date Time Electronically viewed and signed by .Ori Moreland MD, on 08/22/2016 08:45 .V/
[2016-08-22] MEDS: MULTIVITAMINS THERAPEUTIC TAB PO SCH (08:46)
[2016-08-22] MEDS: ENOXAPARIN 60 MG/0.6 ML SYG SC SCH (08:46)
[2016-08-22] MEDS: BUMETANIDE 1 MG TAB PO SCH (08:46)
[2016-08-22] MEDS: SPIRONOLACTONE 25 MG TAB PO SCH (08:54)
[2016-08-22] MEDS: METOPROLOL 25 MG TAB PO SCH ×2 (08:54→23:07)
[2016-08-22] MEDS: DILTIAZEM (CD) 240 MG CAP PO SCH (09:03)
--- NOTE | 2016-08-22 11:06 | CONS ---
Date/Time of Note Date/Time of Note DATE: 08/22/16 TIME: 11:04 Assessment/Plan Assessment/Plan Additional Assessment/Plan CT chest was reviewed from yesterday which is showing atelectasis involving the left lower lobe. There is a small pleural effusion. Assessment recommendations; next 1. Patient admitted for recurrent left lower lobe pneumonia with atelectasis with possibility of endobronchial lesion involving the left lower lobe area. 2. History of chronic atrial fibrillation. 3. History of diabetes and hypertension. 4. COPD. Continue current treatment. Schedule bronchoscopy for tomorrow. Consultation Date/Type/Reason Admit Date/Time Aug 19, 2016 at 23:41 Initial Consult Date 08/20/16 Type of Consultation: Pulmonary Referring Provider: BIBI TSANG 24 HR Interval Summary Free Text/Dictation Patient condition stable. Complains of shortness of breath upon moderate exertion. Denies any chest pain, coughing, wheezing. General exam; elderly lady, awake alert currently in no distress. Exam/Review of Systems Vital Signs Vitals Vital Signs Date Time Temp Pulse Resp B/P Pulse Ox O2 Delivery O2 Flow Rate FiO2 08/22/16 07:32 98.3 61 18 113/57 94 08/21/16 20:15 Nasal Cannula 4.0 Intake and Output 08/21/16 08/21/16 08/22/16 15:00 23:00 07:00 Intake Total 2620 ml 1330 ml Output Total 1200 ml Balance 1420 ml 1330 ml Exam HEENT examined; supple neck, JVD difficult to see because of short neck. No thyromegaly. Pharynx is clear. Patient has multiple missing teeth. Pupils are midsize and reactive to light bilaterally. Chest examination; diminished breath sound left lower lobe. Rest of the lung [place] are clear. S1-S2 audible, no murmurs. Irregular rhythm. Abdomen examination; soft, no organomegaly. No tenderness. Bowel sounds audible. There is a large pannus. Extremity examination; no peripheral edema. Pulses 1+ bilaterally. 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 Results Result Diagram: 08/21/16 0515 08/21/16 0515 Results 24 hrs Laboratory Tests Test 08/21/16 12:02 08/21/16 17:16 08/21/16 20:03 08/21/16 23:01 Bedside Glucose 244 H 234 H 195 Vancomycin Level Trough 15.1 Test 08/22/16 01:12 08/22/16 07:47 Bedside Glucose 321 H 200 Medications Medications Current Medications Lorazepam (Ativan) 0.5 mg Q6H PRN IV ANXIETY; Start 08/20/16 at 01:00 Acetaminophen (Tylenol Tab) 650 mg Q6H PRN PO PAIN LEVEL 1-3 OR FEVER Last administered on 08/20/16 08:23; Admin Dose 650 MG; Start 08/20/16 at 01:00 Pantoprazole (Protonix Iv) 40 mg DAILY@06 IV Last administered on 08/22/16 06: 06; Admin Dose 40 MG; Start 08/20/16 at 06:00 Atorvastatin Calcium (Lipitor) 40 mg HS PO Last administered on 08/21/16 20:27 ; Admin Dose 40 MG; Start 08/20/16 at 21:00 Digoxin (Digoxin) 0.25 mg DAILY@13 PO Last administered on 08/21/16 13:23; Admin Dose 0.25 MG; Start 08/20/16 at 13:00 Diltiazem HCl (Cardizem Cd) 240 mg DAILY PO Last administered on 08/22/16 09:03 ; Admin Dose 240 MG; Start 08/20/16 at 09:00 Metoprolol Tartrate (Lopressor) 25 mg BID PO Last administered on 08/22/16 08: 54; Admin Dose 25 MG; Start 08/20/16 at 09:00 Multivitamins Therapeutic (Theragran) 1 tab DAILY PO Last administered on 08:46; Admin Dose 1 TAB; Start 08/20/16 at 09:00 Salmeterol Xinafoate/ Fluticasone (Advair 250/50 Diskus) 1 inh BID INH Last administered on 08/22/16 08:44; Admin Dose 1 INH; Start 08/20/16 at 09:00 Spironolactone (Aldactone) 25 mg DAILY PO Last administered on 08/22/16 08:54; Admin Dose 25 MG; Start 08/20/16 at 09:00 Diagnostic Test (Pha) (Accu-Chek) 1 ea 02 XX ; Start 08/21/16 at 02:00 Miscellaneous Information 1 ea NOTE XX ; Start 08/20/16 at 02:10 Glucose (Glutose) 15 gm Q15M PRN PO DECREASED GLUCOSE; Start 08/20/16 at 02:10 Glucose (Glutose) 22.5 gm Q15M PRN PO DECREASED GLUCOSE; Start 08/20/16 at 02:10 Dextrose (D50w Syringe) 25 ml Q15M PRN IV DECREASED GLUCOSE; Start 08/20/16 at 02:10 Dextrose (D50w Syringe) 50 ml Q15M PRN IV DECREASED GLUCOSE; Start 08/20/16 at 02:10 Glucagon (Glucagen) 1 mg Q15M PRN IM DECREASED GLUCOSE; Start 08/20/16 at 02:10 Glucose 15 gm 15 gm Q15M PRN BUCCAL DECREASED GLUCOSE; Start 08/20/16 at 02:10 Cefepime HCl 50 ml @ 100 mls/hr Q8 IVPB Last administered on 08/22/16 06:06; Admin Dose 100 MLS/HR; Start 08/20/16 at 06:00 Vancomycin HCl/ Sodium Chloride (Vancocin/NS) 250 ml @ 83.333 mls/ hr Q12H IVPB Last administered on 08/22/16 00:02; Admin Dose 83.333 MLS/HR; Start at 12:00 Insulin Glargine (Lantus) 40 unit DAILY@20 SC Last administered on 08/21/16 20: 11; Admin Dose 40 UNIT; Start 08/20/16 at 20:00 Enoxaparin Sodium (Lovenox) 120 mg Q12 SC Last administered on 08/22/16 08:46; Admin Dose 120 MG; Start 08/20/16 at 21:00 Bumetanide (Bumex) 1 mg DAILY PO Last administered on 08/22/16 08:46; Admin Dose 1 MG; Start 08/20/16 at 12:00 Montelukast Sodium (Singulair) 10 mg HS PO ; Start 08/21/16 at 21:00 Theophylline (Dorian-24) 200 mg QHS PO Last administered on 08/21/16 20:27; Admin Dose 200 MG; Start 08/21/16 at 21:00 MAGALYS CHAPIN Aug 22, 2016 11:06
[2016-08-22] MEDS: DIGOXIN 0.25 MG TAB PO SCH (12:47)
--- NOTE | 2016-08-22 17:06 | PN ---
Date/Time of Note Date/Time of Note DATE: 08/22/16 TIME: 17:00 Assessment/Plan VTE Prophylaxis VTE Prophylaxis Intervention: contraindicated VTE Contraindication Reason: bleeding Lines/Catheters IV Catheter Type (from Nrsg): Saline Lock Urinary Cath still in place: No Assessment/Plan Chief Complaint/Hosp Course Subjective: No events. Son updated at patient's request. Objective: Vital signs stable Physical exam No pallor JVD adenopathy Appears irreg, no m/r/g Dimin bs/ poor air entry bilat. No tachypnea Bs + nt nd, no R/R/G No edema Assessment and plan 1. Parapneumonic effusion, stable. Patient for bronc in a.m. 2. Chronic A. fib hold Lovenox for bronch 3. Chronic respiratory failure/home O2 status 4. Sleep apnea hypoventilation syndrome? 5. Nonadherence 6. Diastolic dysfunction? cLVH 7. Diabetes/metabolic syndrome. A1c 9.3 8. Chronic COPD 9. Past tobacco use 10. Anemia 11. PAH- 55mm 12. 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 Abnormal CA 125? Problems: Exam/Review of Systems Vital Signs Vitals Vital Signs Date Time Temp Pulse Resp B/P Pulse Ox O2 Delivery O2 Flow Rate FiO2 08/22/16 16:55 4.0 08/22/16 08:00 Nasal Cannula 08/22/16 07:32 98.3 61 18 113/57 94 Intake and Output 08/21/16 08/21/16 08/22/16 15:00 23:00 07:00 Intake Total 2620 ml 1330 ml Output Total 1200 ml Balance 1420 ml 1330 ml Results Result Diagram: 08/21/16 0515 08/21/16 0515 Results 24 hrs Laboratory Tests Test 08/21/16 17:16 08/21/16 20:03 08/21/16 23:01 08/22/16 01:12 Bedside Glucose 234 H 195 321 H Vancomycin Level Trough 15.1 Test 08/22/16 07:47 08/22/16 11:58 Bedside Glucose 200 248 H Medications Medications Current Medications Lorazepam (Ativan) 0.5 mg Q6H PRN IV ANXIETY; Start 08/20/16 at 01:00 Acetaminophen (Tylenol Tab) 650 mg Q6H PRN PO PAIN LEVEL 1-3 OR FEVER Last administered on 08/20/16 08:23; Admin Dose 650 MG; Start 08/20/16 at 01:00 Atorvastatin Calcium (Lipitor) 40 mg HS PO Last administered on 08/21/16 20:27 ; Admin Dose 40 MG; Start 08/20/16 at 21:00 Digoxin (Digoxin) 0.25 mg DAILY@13 PO Last administered on 08/22/16 12:47; Admin Dose 0.25 MG; Start 08/20/16 at 13:00 Diltiazem HCl (Cardizem Cd) 240 mg DAILY PO Last administered on 08/22/16 09:03 ; Admin Dose 240 MG; Start 08/20/16 at 09:00 Metoprolol Tartrate (Lopressor) 25 mg BID PO Last administered on 08/22/16 08: 54; Admin Dose 25 MG; Start 08/20/16 at 09:00 Multivitamins Therapeutic (Theragran) 1 tab DAILY PO Last administered on 08:46; Admin Dose 1 TAB; Start 08/20/16 at 09:00 Salmeterol Xinafoate/ Fluticasone (Advair 250/50 Diskus) 1 inh BID INH Last administered on 08/22/16 08:44; Admin Dose 1 INH; Start 08/20/16 at 09:00 Spironolactone (Aldactone) 25 mg DAILY PO Last administered on 08/22/16 08:54; Admin Dose 25 MG; Start 08/20/16 at 09:00 Diagnostic Test (Pha) (Accu-Chek) 1 ea 02 XX ; Start 08/21/16 at 02:00 Miscellaneous Information 1 ea NOTE XX ; Start 08/20/16 at 02:10 Glucose (Glutose) 15 gm Q15M PRN PO DECREASED GLUCOSE; Start 08/20/16 at 02:10 Glucose (Glutose) 22.5 gm Q15M PRN PO DECREASED GLUCOSE; Start 08/20/16 at 02:10 Dextrose (D50w Syringe) 25 ml Q15M PRN IV DECREASED GLUCOSE; Start 08/20/16 at 02:10 Dextrose (D50w Syringe) 50 ml Q15M PRN IV DECREASED GLUCOSE; Start 08/20/16 at 02:10 Glucagon (Glucagen) 1 mg Q15M PRN IM DECREASED GLUCOSE; Start 08/20/16 at 02:10 Glucose 15 gm 15 gm Q15M PRN BUCCAL DECREASED GLUCOSE; Start 08/20/16 at 02:10 Cefepime HCl 50 ml @ 100 mls/hr Q8 IVPB Last administered on 08/22/16 15:55; Admin Dose 100 MLS/HR; Start 08/20/16 at 06:00 Vancomycin HCl/ Sodium Chloride (Vancocin/NS) 250 ml @ 83.333 mls/ hr Q12H IVPB Last administered on 08/22/16 12:41; Admin Dose 83.333 MLS/HR; Start at 12:00 Insulin Glargine (Lantus) 40 unit DAILY@20 SC Last administered on 08/21/16 20: 11; Admin Dose 40 UNIT; Start 08/20/16 at 20:00 Enoxaparin Sodium (Lovenox) 120 mg Q12 SC Last administered on 08/22/16 08:46; Admin Dose 120 MG; Start 08/20/16 at 21:00; Status Future Hold Bumetanide (Bumex) 1 mg DAILY PO Last administered on 08/22/16 08:46; Admin Dose 1 MG; Start 08/20/16 at 12:00 Montelukast Sodium (Singulair) 10 mg HS PO ; Start 08/21/16 at 21:00 Theophylline (Dorian-24) 200 mg QHS PO Last administered on 08/21/16 20:27; Admin Dose 200 MG; Start 08/21/16 at 21:00 Famotidine (Pepcid) 20 mg DAILY PO ; Start 08/22/16 at 17:00; Status UNV Docusate Sodium (Colace) 100 mg DAILY PO ; Start 08/22/16 at 17:00; Status BRUNOV ROMI RILEY MD Aug 22, 2016 17:06
[2016-08-22] MEDS: DOCUSATE SODIUM 100 MG CAP PO SCH (17:41)
[2016-08-22] MEDS: FAMOTIDINE 20 MG TAB PO SCH (17:41)
[2016-08-22 20:13] VITALS: BP 114/71; RESP 20
[2016-08-22] MEDS: MONTELUKAST 10 MG TAB PO SCH (21:00)
[2016-08-22] MEDS: ATORVASTATIN 40 MG TAB PO SCH (21:09)
[2016-08-22] MEDS: INSULIN GLARGINE [LANtus] 3 ML PEN SC SCH (21:13)
[2016-08-22] MEDS: THEOPHYLLINE (SR) 200 MG CAPSR PO SCH (23:07)
[2016-08-23] VITALS (9 sets, daily range): BP systolic 105–144; BP diastolic 63–86; PULSE 69–102; RESP 18–29
[2016-08-23] MEDS: VANCOMYCIN 1.5 GM in SOD CHLORIDE 0.9% 250 ML IVPB SCH ×2 (00:14→11:27)
[2016-08-23] MEDS: ACCU-CHEK XX SCH (03:00)
[2016-08-23] MEDS: CEFEPIME 2GM/50 ML (PMX) 50 ML IVPB SCH ×3 (05:48→21:00)
[2016-08-23 06:26] LABS: ADD SCAN DIFF NO
[2016-08-23 06:29] LABS: BASOPHILS % 0.4 % (0.0-2.0); EOSINOPHILS # 0.1 10^3/ul (0.0-0.5); EOSINOPHILS % 1.1 % (0.0-7.0); HEMATOCRIT 35.1 % (37.0-47.0); HEMOGLOBIN 10.8 g/dl (12.0-16.0); LYMPHOCYTES # 1.5 10^3/ul (0.8-2.9); MEAN CORPUSCULAR HEMOGLOBIN 28.7 pg (29.0-33.0); MEAN CORPUSCULAR HGB CONC 30.8 g/dl (32.0-37.0); MEAN CORPUSCULAR VOLUME 93.4 fl (82.0-101.0); MEAN PLATELET VOLUME 9.9 fl (7.4-10.4); MONOCYTE # 0.9 10^3/ul (0.3-0.9); MONOCYTES % 8.6 % (0.0-11.0); NEUTROPHIL # 7.4 10^3/ul (1.6-7.5); NUCLEATED RED BLOOD CELLS% 0.2 /100WBC (0.0-0.0); PLATELET COUNT 368 10^3/UL (140-415); RED BLOOD COUNT 3.76 10^6/ul (4.20-5.40); RED CELL DISTRIBUTION WIDTH 16.7 % (11.5-14.5); WHITE BLOOD COUNT 10.2 10^3/ul (4.8-10.8)
[2016-08-23 06:46] LABS: INR 0.91; PARTIAL THROMBOPLASTIN TIME 30.5 Sec (25.0-35.0); PROTIME 12.3 Sec (12.2-14.2)
[2016-08-23 06:54] LABS: CREATININE 0.92 mg/dl (0.44-1.00)
[2016-08-23] MEDS ORDERED: PROPOFOL 200 MG INJ ONE (07:00)
--- NOTE | 2016-08-23 08:06 | CONS ---
Date/Time of Note Date/Time of Note DATE: 08/23/16 TIME: 08:04 Assessment/Plan Assessment/Plan Chief Complaint/Hosp Course Acute on chronic respiratory failure: Plan for bronchoscopy this am to evaluate for bronchial mass causing left lung base atelectasis Chronic afib: rates controlled on 3 agents. On Eliquis which is held for bronch Acute on chronic diastolic heart failure: Mild CHF by exam COPD Recurrent left pleural effusion: s/p multiple thoras in the recent past. CT shows small-mod effusion -continue diltiazem 240mg -MTP 25g BID -digoxin 250mcg (level ok) -bumex 1mg daily to keep even -restart Eliquis after procedure completed -bronchoscopy today Problems: Consultation Date/Type/Reason Admit Date/Time Aug 19, 2016 at 23:41 Initial Consult Date 08/20/16 Type of Consultation: Cardiology Referring Provider: BIBI TSANG 24 HR Interval Summary Free Text/Dictation Plan for bronchoscopy this am to evaluate for bronchial mass causing left lung base atelectasis Exam/Review of Systems Vital Signs Vitals Vital Signs Date Time Temp Pulse Resp B/P Pulse Ox O2 Delivery O2 Flow Rate FiO2 08/23/16 07:38 98.1 71 18 134/63 91 08/23/16 01:14 4.0 08/23/16 00:00 Nasal Cannula Intake and Output 08/22/16 08/22/16 08/23/16 15:00 23:00 07:00 Intake Total 1540 ml 750 ml Balance 1540 ml 750 ml Exam Constitutional: alert, oriented Psych: no complaints Head: atraumatic, normocephalic Neck: jvd (7cm) Respiratory: diminished breath sounds (left base), No clear to auscultation Cardiovascular: edema (1+), No regular rate and rhythm, No systolic murmur 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: nl mental status, nl speech Results Result Diagram: 08/23/16 0535 08/23/16 0535 Results 24 hrs Laboratory Tests Test 08/22/16 11:58 08/22/16 17:11 08/22/16 21:07 08/23/16 03:32 Bedside Glucose 248 H 281 H 212 233 H Test 08/23/16 05:35 White Blood Count 10.2 Red Blood Count 3.76 L Hemoglobin 10.8 L Hematocrit 35.1 L Mean Corpuscular Volume 93.4 Mean Corpuscular Hemoglobin 28.7 L Mean Corpuscular Hemoglobin Concent 30.8 L Red Cell Distribution Width 16.7 H Platelet Count 368 Mean Platelet Volume 9.9 Neutrophils % 73.0 Lymphocytes % 15.0 Monocytes % 8.6 Eosinophils % 1.1 Basophils % 0.4 Nucleated Red Blood Cells % 0.2 H Neutrophils # 7.4 Lymphocytes # 1.5 Monocytes # 0.9 Eosinophils # 0.1 Basophils # 0.0 Nucleated Red Blood Cells # 0.0 Prothrombin Time 12.3 Prothrombin Time Ratio 1.0 INR International Normalized Ratio 0.91 Activated Partial Thromboplast Time 30.5 Blood Urea Nitrogen 16 Creatinine 0.92 Medications Medications Current Medications Lorazepam (Ativan) 0.5 mg Q6H PRN IV ANXIETY; Start 08/20/16 at 01:00 Acetaminophen (Tylenol Tab) 650 mg Q6H PRN PO PAIN LEVEL 1-3 OR FEVER Last administered on 08/20/16 08:23; Admin Dose 650 MG; Start 08/20/16 at 01:00 Atorvastatin Calcium (Lipitor) 40 mg HS PO Last administered on 08/22/16 21:09 ; Admin Dose 40 MG; Start 08/20/16 at 21:00 Digoxin (Digoxin) 0.25 mg DAILY@13 PO Last administered on 08/22/16 12:47; Admin Dose 0.25 MG; Start 08/20/16 at 13:00 Diltiazem HCl (Cardizem Cd) 240 mg DAILY PO Last administered on 08/22/16 09:03 ; Admin Dose 240 MG; Start 08/20/16 at 09:00 Metoprolol Tartrate (Lopressor) 25 mg BID PO Last administered on 08/22/16 23: 07; Admin Dose 25 MG; Start 08/20/16 at 09:00 Multivitamins Therapeutic (Theragran) 1 tab DAILY PO Last administered on 08:46; Admin Dose 1 TAB; Start 08/20/16 at 09:00 Salmeterol Xinafoate/ Fluticasone (Advair 250/50 Diskus) 1 inh BID INH Last administered on 08/22/16 21:09; Admin Dose 1 INH; Start 08/20/16 at 09:00 Spironolactone (Aldactone) 25 mg DAILY PO Last administered on 08/22/16 08:54; Admin Dose 25 MG; Start 08/20/16 at 09:00 Diagnostic Test (Pha) (Accu-Chek) 1 ea 02 XX Last administered on 08/23/16 03: 00; Admin Dose 1 EA; Start 08/21/16 at 02:00 Miscellaneous Information 1 ea NOTE XX ; Start 08/20/16 at 02:10 Glucose (Glutose) 15 gm Q15M PRN PO DECREASED GLUCOSE; Start 08/20/16 at 02:10 Glucose (Glutose) 22.5 gm Q15M PRN PO DECREASED GLUCOSE; Start 08/20/16 at 02:10 Dextrose (D50w Syringe) 25 ml Q15M PRN IV DECREASED GLUCOSE; Start 08/20/16 at 02:10 Dextrose (D50w Syringe) 50 ml Q15M PRN IV DECREASED GLUCOSE; Start 08/20/16 at 02:10 Glucagon (Glucagen) 1 mg Q15M PRN IM DECREASED GLUCOSE; Start 08/20/16 at 02:10 Glucose 15 gm 15 gm Q15M PRN BUCCAL DECREASED GLUCOSE; Start 08/20/16 at 02:10 Cefepime HCl 50 ml @ 100 mls/hr Q8 IVPB Last administered on 08/23/16 05:48; Admin Dose 100 MLS/HR; Start 08/20/16 at 06:00 Vancomycin HCl/ Sodium Chloride (Vancocin/NS) 250 ml @ 83.333 mls/ hr Q12H IVPB Last administered on 08/23/16 00:14; Admin Dose 83.333 MLS/HR; Start at 12:00 Insulin Glargine (Lantus) 40 unit DAILY@20 SC Last administered on 08/22/16 21: 13; Admin Dose 40 UNIT; Start 08/20/16 at 20:00 Enoxaparin Sodium (Lovenox) 120 mg Q12 SC Last administered on 08/22/16 08:46; Admin Dose 120 MG; Start 08/20/16 at 21:00; Status Future Hold Bumetanide (Bumex) 1 mg DAILY PO Last administered on 08/22/16 08:46; Admin Dose 1 MG; Start 08/20/16 at 12:00 Montelukast Sodium (Singulair) 10 mg HS PO ; Start 08/21/16 at 21:00 Theophylline (Dorian-24) 200 mg QHS PO Last administered on 08/22/16 23:07; Admin Dose 200 MG; Start 08/21/16 at 21:00 Famotidine (Pepcid) 20 mg DAILY PO Last administered on 08/22/16 17:41; Admin Dose 20 MG; Start 08/22/16 at 17:00 Docusate Sodium (Colace) 100 mg DAILY PO Last administered on 08/22/16 17:41; Admin Dose 100 MG; Start 08/22/16 at 17:00 Lisinopril (Zestril) 2.5 mg DAILY PO ; Start 08/23/16 at 09:00 AMY SLOAN Aug 23, 2016 08:06
[2016-08-23] MEDS: INSULIN ASPART [NOVOLOG] 3 ML PEN SC SCH ×9 (08:11→20:53)
[2016-08-23 08:18] LABS: CALCIUM 8.3 mg/dl (8.4-10.2); CREATININE 0.9 mg/dl (0.44-1.00); MAGNESIUM 2.2 mg/dl (1.7-2.5); PHOSPHORUS 3.4 mg/dl (2.5-4.9); POTASSIUM 4.5 mmol/L (3.5-5.1)
[2016-08-23] MEDS: DOCUSATE SODIUM 100 MG CAP PO SCH ×2 (09:00→15:16)
[2016-08-23] MEDS: MULTIVITAMINS THERAPEUTIC TAB PO SCH ×2 (09:00→15:16)
[2016-08-23] MEDS: METOPROLOL 25 MG TAB PO SCH ×2 (09:00→20:56)
[2016-08-23] MEDS: DILTIAZEM (CD) 240 MG CAP PO SCH ×2 (09:00→15:15)
[2016-08-23] MEDS: SPIRONOLACTONE 25 MG TAB PO SCH ×2 (09:00→15:16)
[2016-08-23] MEDS: LISINOPRIL 5 MG TAB PO SCH ×2 (09:00→15:16)
[2016-08-23] MEDS: SALMETEROL/FLUTICASONE 250/50 INHA INH SCH ×2 (09:00→20:57)
[2016-08-23] MEDS: FAMOTIDINE 20 MG TAB PO SCH ×2 (09:00→15:16)
[2016-08-23] MEDS: BUMETANIDE 1 MG TAB PO SCH ×2 (09:00→15:15)
--- NOTE | 2016-08-23 10:33 | CONS ---
Date/Time of Note Date/Time of Note DATE: 08/23/16 TIME: 10:31 Assessment/Plan Assessment/Plan Additional Assessment/Plan Assessment recommendations; next 1. Patient admitted for recurrent left lower lobe pneumonia with CT scan chest findings indicative of possible endobronchial lesion involving the left upper lobe. 2. History of diabetes, atrial fibrillation and hypertension. 3. Obesity. 4. Mild CHF. Clinically compensated. Continue current treatment. Patient is scheduled for bronchoscopy today. The procedure was discussed in detail with her yesterday and she is agreeable to it. Consultation Date/Type/Reason Admit Date/Time Aug 19, 2016 at 23:41 Initial Consult Date 08/20/16 Type of Consultation: Pulmonary Referring Provider: BIBI TSANG 24 HR Interval Summary Free Text/Dictation Patient condition stable. Still complains of mild shortness of breath and chest congestion and coughing. Denies any chest pain fever or chills. General exam; elderly woman, awake alert currently in no distress. Sitting in a chair by bedside. Exam/Review of Systems Vital Signs Vitals Vital Signs Date Time Temp Pulse Resp B/P Pulse Ox O2 Delivery O2 Flow Rate FiO2 08/23/16 10:25 97.9 69 20 140/79 93 Nasal Cannula 08/23/16 01:14 4.0 Intake and Output 08/22/16 08/22/16 08/23/16 15:00 23:00 07:00 Intake Total 1540 ml 750 ml Balance 1540 ml 750 ml Exam HEENT examination; supple neck, JVD difficult to see because of short neck. No neck masses. No thyromegaly. No neck bruits. Patient has multiple missing teeth. Pupils are midsize and reactive to light. Chest examined; diminished but clear vessel. S1-S2 audible, no murmurs. Irregular rhythm. Abdomen examination; soft, protuberant. No organomegaly. Bowel sounds audible. Nontender. There is a large pannus. Extremity exam; no peripheral edema. 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 Results Result Diagram: 08/23/16 0535 08/23/16 0710 Results 24 hrs Laboratory Tests Test 08/22/16 11:58 08/22/16 17:11 08/22/16 21:07 08/23/16 03:32 Bedside Glucose 248 H 281 H 212 233 H Test 08/23/16 05:35 08/23/16 07:10 08/23/16 08:07 White Blood Count 10.2 Red Blood Count 3.76 L Hemoglobin 10.8 L Hematocrit 35.1 L Mean Corpuscular Volume 93.4 Mean Corpuscular Hemoglobin 28.7 L Mean Corpuscular Hemoglobin Concent 30.8 L Red Cell Distribution Width 16.7 H Platelet Count 368 Mean Platelet Volume 9.9 Neutrophils % 73.0 Lymphocytes % 15.0 Monocytes % 8.6 Eosinophils % 1.1 Basophils % 0.4 Nucleated Red Blood Cells % 0.2 H Neutrophils # 7.4 Lymphocytes # 1.5 Monocytes # 0.9 Eosinophils # 0.1 Basophils # 0.0 Nucleated Red Blood Cells # 0.0 Prothrombin Time 12.3 Prothrombin Time Ratio 1.0 INR International Normalized Ratio 0.91 Activated Partial Thromboplast Time 30.5 Blood Urea Nitrogen 16 16 Creatinine 0.92 0.90 Sodium Level 141 Potassium Level 4.5 Chloride Level 96 L Carbon Dioxide Level 40 H Anion Gap 10 Glucose Level 235 H Calcium Level 8.3 L Phosphorus Level 3.4 Magnesium Level 2.2 Bedside Glucose 233 H Medications Medications Current Medications Lorazepam (Ativan) 0.5 mg Q6H PRN IV ANXIETY; Start 08/20/16 at 01:00 Acetaminophen (Tylenol Tab) 650 mg Q6H PRN PO PAIN LEVEL 1-3 OR FEVER Last administered on 08/20/16 08:23; Admin Dose 650 MG; Start 08/20/16 at 01:00 Atorvastatin Calcium (Lipitor) 40 mg HS PO Last administered on 08/22/16 21:09 ; Admin Dose 40 MG; Start 08/20/16 at 21:00 Digoxin (Digoxin) 0.25 mg DAILY@13 PO Last administered on 08/22/16 12:47; Admin Dose 0.25 MG; Start 08/20/16 at 13:00 Diltiazem HCl (Cardizem Cd) 240 mg DAILY PO Last administered on 08/22/16 09:03 ; Admin Dose 240 MG; Start 08/20/16 at 09:00 Metoprolol Tartrate (Lopressor) 25 mg BID PO Last administered on 08/22/16 23: 07; Admin Dose 25 MG; Start 08/20/16 at 09:00 Multivitamins Therapeutic (Theragran) 1 tab DAILY PO Last administered on 08:46; Admin Dose 1 TAB; Start 08/20/16 at 09:00 Salmeterol Xinafoate/ Fluticasone (Advair 250/50 Diskus) 1 inh BID INH Last administered on 08/22/16 21:09; Admin Dose 1 INH; Start 08/20/16 at 09:00 Spironolactone (Aldactone) 25 mg DAILY PO Last administered on 08/22/16 08:54; Admin Dose 25 MG; Start 08/20/16 at 09:00 Diagnostic Test (Pha) (Accu-Chek) 1 ea 02 XX Last administered on 08/23/16 03: 00; Admin Dose 1 EA; Start 08/21/16 at 02:00 Miscellaneous Information 1 ea NOTE XX ; Start 08/20/16 at 02:10 Glucose (Glutose) 15 gm Q15M PRN PO DECREASED GLUCOSE; Start 08/20/16 at 02:10 Glucose (Glutose) 22.5 gm Q15M PRN PO DECREASED GLUCOSE; Start 08/20/16 at 02:10 Dextrose (D50w Syringe) 25 ml Q15M PRN IV DECREASED GLUCOSE; Start 08/20/16 at 02:10 Dextrose (D50w Syringe) 50 ml Q15M PRN IV DECREASED GLUCOSE; Start 08/20/16 at 02:10 Glucagon (Glucagen) 1 mg Q15M PRN IM DECREASED GLUCOSE; Start 08/20/16 at 02:10 Glucose 15 gm 15 gm Q15M PRN BUCCAL DECREASED GLUCOSE; Start 08/20/16 at 02:10 Cefepime HCl 50 ml @ 100 mls/hr Q8 IVPB Last administered on 08/23/16 05:48; Admin Dose 100 MLS/HR; Start 08/20/16 at 06:00 Vancomycin HCl/ Sodium Chloride (Vancocin/NS) 250 ml @ 83.333 mls/ hr Q12H IVPB Last administered on 08/23/16 00:14; Admin Dose 83.333 MLS/HR; Start at 12:00 Insulin Glargine (Lantus) 40 unit DAILY@20 SC Last administered on 08/22/16 21: 13; Admin Dose 40 UNIT; Start 08/20/16 at 20:00 Enoxaparin Sodium (Lovenox) 120 mg Q12 SC Last administered on 08/22/16 08:46; Admin Dose 120 MG; Start 08/20/16 at 21:00; Status Future Hold Bumetanide (Bumex) 1 mg DAILY PO Last administered on 08/22/16 08:46; Admin Dose 1 MG; Start 08/20/16 at 12:00 Montelukast Sodium (Singulair) 10 mg HS PO ; Start 08/21/16 at 21:00 Theophylline (Dorian-24) 200 mg QHS PO Last administered on 08/22/16 23:07; Admin Dose 200 MG; Start 08/21/16 at 21:00 Famotidine (Pepcid) 20 mg DAILY PO Last administered on 08/22/16 17:41; Admin Dose 20 MG; Start 08/22/16 at 17:00 Docusate Sodium (Colace) 100 mg DAILY PO Last administered on 08/22/16 17:41; Admin Dose 100 MG; Start 08/22/16 at 17:00 Lisinopril (Zestril) 2.5 mg DAILY PO ; Start 08/23/16 at 09:00 MAGALYS CHAPIN Aug 23, 2016 10:33
[2016-08-23] MEDS ORDERED: LIDOCAINE 1% (MDV) 20 ML INJ ONE (11:35)
[2016-08-23] MEDS ORDERED: SUCCINYLCHOLINE CHLORIDE 100 MG/5 ML SYG IV ONE (11:35)
[2016-08-23] MEDS ORDERED: ETOMIDATE 20 MG INJ ONE (11:35)
[2016-08-23] MEDS ORDERED: PHENYLephrine (100 MCG/ML) 5ML SYG ONE (12:22)
--- NOTE | 2016-08-23 12:27 | PN ---
Date/Time of Note Date/Time of Note DATE: 08/23/16 TIME: 12:25 Assessment/Plan VTE Prophylaxis VTE Prophylaxis Intervention: LMWH Lines/Catheters IV Catheter Type (from Nrs): Saline Lock Urinary Cath still in place: No Assessment/Plan Chief Complaint/Hosp Course S: 08/22 no events. Son updated at patient's request. 08/23 patient for Bronch, no events overnight O: Vss PE No pallor JVD Appears irreg, no m/r/g Dimin bs. No tachypnea Bs + nt nd, no R/R/G No edema A/P 1. Parapneumonic effusion, stable. bronch. 2. Chr A fib hold Lovenox for bronch 3. Chr respiratory failure/home O2 status 4. Sleep apnea hypoventilation syndrome? 5. Nonadherence 6. Diastolic dysfunction? cLVH 7. Diabetes/metabolic syndrome. A1c 9.3 8. Chr COPD 9. Past tobacco use 10. Anemia 11. PAH- 55mm 12. 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 Abnormal CA 125? Problems: Exam/Review of Systems Vital Signs Vitals Vital Signs Date Time Temp Pulse Resp B/P Pulse Ox O2 Delivery O2 Flow Rate FiO2 08/23/16 10:25 97.9 69 20 140/79 93 Nasal Cannula 08/23/16 01:14 4.0 Intake and Output 08/22/16 08/22/16 08/23/16 14:59 22:59 06:59 Intake Total 1540 ml 750 ml Balance 1540 ml 750 ml Results Result Diagram: 08/23/16 0535 08/23/16 0710 Results 24 hrs Laboratory Tests Test 08/22/16 17:11 08/22/16 21:07 08/23/16 03:32 08/23/16 05:35 Bedside Glucose 281 H 212 233 H White Blood Count 10.2 Red Blood Count 3.76 L Hemoglobin 10.8 L Hematocrit 35.1 L Mean Corpuscular Volume 93.4 Mean Corpuscular Hemoglobin 28.7 L Mean Corpuscular Hemoglobin Concent 30.8 L Red Cell Distribution Width 16.7 H Platelet Count 368 Mean Platelet Volume 9.9 Neutrophils % 73.0 Lymphocytes % 15.0 Monocytes % 8.6 Eosinophils % 1.1 Basophils % 0.4 Nucleated Red Blood Cells % 0.2 H Neutrophils # 7.4 Lymphocytes # 1.5 Monocytes # 0.9 Eosinophils # 0.1 Basophils # 0.0 Nucleated Red Blood Cells # 0.0 Prothrombin Time 12.3 Prothrombin Time Ratio 1.0 INR International Normalized Ratio 0.91 Activated Partial Thromboplast Time 30.5 Blood Urea Nitrogen 16 Creatinine 0.92 Test 08/23/16 07:10 08/23/16 08:07 Sodium Level 141 Potassium Level 4.5 Chloride Level 96 L Carbon Dioxide Level 40 H Anion Gap 10 Blood Urea Nitrogen 16 Creatinine 0.90 Glucose Level 235 H Calcium Level 8.3 L Phosphorus Level 3.4 Magnesium Level 2.2 Bedside Glucose 233 H Medications Medications Current Medications Lorazepam (Ativan) 0.5 mg Q6H PRN IV ANXIETY; Start 08/20/16 at 01:00 Acetaminophen (Tylenol Tab) 650 mg Q6H PRN PO PAIN LEVEL 1-3 OR FEVER Last administered on 08/20/16 08:23; Admin Dose 650 MG; Start 08/20/16 at 01:00 Atorvastatin Calcium (Lipitor) 40 mg HS PO Last administered on 08/22/16 21:09 ; Admin Dose 40 MG; Start 08/20/16 at 21:00 Digoxin (Digoxin) 0.25 mg DAILY@13 PO Last administered on 08/22/16 12:47; Admin Dose 0.25 MG; Start 08/20/16 at 13:00 Diltiazem HCl (Cardizem Cd) 240 mg DAILY PO Last administered on 08/22/16 09:03 ; Admin Dose 240 MG; Start 08/20/16 at 09:00 Metoprolol Tartrate (Lopressor) 25 mg BID PO Last administered on 08/22/16 23: 07; Admin Dose 25 MG; Start 08/20/16 at 09:00 Multivitamins Therapeutic (Theragran) 1 tab DAILY PO Last administered on 08:46; Admin Dose 1 TAB; Start 08/20/16 at 09:00 Salmeterol Xinafoate/ Fluticasone (Advair 250/50 Diskus) 1 inh BID INH Last administered on 08/22/16 21:09; Admin Dose 1 INH; Start 08/20/16 at 09:00 Spironolactone (Aldactone) 25 mg DAILY PO Last administered on 08/22/16 08:54; Admin Dose 25 MG; Start 08/20/16 at 09:00 Diagnostic Test (Pha) (Accu-Chek) 1 ea 02 XX Last administered on 08/23/16 03: 00; Admin Dose 1 EA; Start 08/21/16 at 02:00 Miscellaneous Information 1 ea NOTE XX ; Start 08/20/16 at 02:10 Glucose (Glutose) 15 gm Q15M PRN PO DECREASED GLUCOSE; Start 08/20/16 at 02:10 Glucose (Glutose) 22.5 gm Q15M PRN PO DECREASED GLUCOSE; Start 08/20/16 at 02:10 Dextrose (D50w Syringe) 25 ml Q15M PRN IV DECREASED GLUCOSE; Start 08/20/16 at 02:10 Dextrose (D50w Syringe) 50 ml Q15M PRN IV DECREASED GLUCOSE; Start 08/20/16 at 02:10 Glucagon (Glucagen) 1 mg Q15M PRN IM DECREASED GLUCOSE; Start 08/20/16 at 02:10 Glucose 15 gm 15 gm Q15M PRN BUCCAL DECREASED GLUCOSE; Start 08/20/16 at 02:10 Cefepime HCl 50 ml @ 100 mls/hr Q8 IVPB Last administered on 08/23/16 05:48; Admin Dose 100 MLS/HR; Start 08/20/16 at 06:00 Vancomycin HCl/ Sodium Chloride (Vancocin/NS) 250 ml @ 83.333 mls/ hr Q12H IVPB Last administered on 08/23/16 11:27; Admin Dose 83.333 MLS/HR; Start at 12:00 Insulin Glargine (Lantus) 40 unit DAILY@20 SC Last administered on 08/22/16 21: 13; Admin Dose 40 UNIT; Start 08/20/16 at 20:00 Enoxaparin Sodium (Lovenox) 120 mg Q12 SC Last administered on 08/22/16 08:46; Admin Dose 120 MG; Start 08/20/16 at 21:00; Status Future Hold Bumetanide (Bumex) 1 mg DAILY PO Last administered on 08/22/16 08:46; Admin Dose 1 MG; Start 08/20/16 at 12:00 Montelukast Sodium (Singulair) 10 mg HS PO ; Start 08/21/16 at 21:00 Theophylline (Dorian-24) 200 mg QHS PO Last administered on 08/22/16 23:07; Admin Dose 200 MG; Start 08/21/16 at 21:00 Famotidine (Pepcid) 20 mg DAILY PO Last administered on 08/22/16 17:41; Admin Dose 20 MG; Start 08/22/16 at 17:00 Docusate Sodium (Colace) 100 mg DAILY PO Last administered on 08/22/16 17:41; Admin Dose 100 MG; Start 08/22/16 at 17:00 Lisinopril (Zestril) 2.5 mg DAILY PO ; Start 08/23/16 at 09:00 ROMI RILEY MD Aug 23, 2016 12:27
[2016-08-23] MEDS ORDERED: ONDANSETRON 4 MG INJ ONE (12:31)
[2016-08-23] MEDS ORDERED: FAMOTIDINE 20 MG INJ ONE (12:31)
--- NOTE | 2016-08-23 12:55 | EN ---
Date/Time of Note Date/Time of Note DATE: 08/23/16 TIME: 12:52 Event Note Medicine Medicine Event Note This is a bronchoscopy dictation report. Next Indications for evaluation of left lower lobe atelectasis. Patient has had recurrent admissions for left lower lobe pneumonia, CT scan of chest showing left lower lobe atelectasis, bronchoscopy to rule out endobronchial lesion in the left lower lobe. Informed consent was obtained. Intubation as well as general anesthesia risks were explained to the patient she signed the consent Patient was brought into the OR , she was intubated by the anesthesiologist by size 8 endotracheal tube. Bronchoscope was introduced via endotracheal tube. Distal trachea was normal, toni was sharp and well defined. The scope was introduced into the right mainstem bronchus with evaluation of the right upper lobe, bronchus intermedius, middle lobe, superior segment of the lower lobe and lower lobes,they were all completely normal. The scope was then introduced into the left mainstem bronchus with evaluation of left upper lobe and lingula they were also normal the scope was introduced into the left lower lobe bronchus with evaluation of left lower lobe. superior segment of the lower lobes was partially compressed with what appeared to be significant endobronchial inflammation suspicious for underlying malignancy. Multiple endobronchial biopsies as well as washings and brushings were obtained. The scope was then withdrawn. Start time was 11:55 a.m. finish time was 12:35 PM, the patient maintained stable cardiac rhythm and vital signs and O2 saturation throughout the procedure. MAGALYS CHAPIN Aug 23, 2016 12:55
[2016-08-23] MEDS ORDERED: IPRATROPIUM (NEB) 0.5 MG/2.5 ML AMP HHN ONE (13:00)
[2016-08-23] MEDS ORDERED: ALBUTEROL 0.083% (NEB) 2.5 MG/3 ML AMP HHN ONE (13:00)
[2016-08-23] MEDS ORDERED: PROCHLORPERAZINE 10 MG INJ IV PRN (13:00)
[2016-08-23] MEDS ORDERED: ALBUTEROL 0.5% (NEB) 2.5 MG/0.5 ML AMP ONE (13:09)
[2016-08-23] MEDS: LACTOBACILLUS RHAMNOSUS CAP PO SCH ×2 (15:13→20:53)
[2016-08-23] MEDS: DIGOXIN 0.25 MG TAB PO SCH (15:16)
[2016-08-23] MEDS: THEOPHYLLINE (SR) 200 MG CAPSR PO SCH (20:54)
[2016-08-23] MEDS: ATORVASTATIN 40 MG TAB PO SCH (20:54)
[2016-08-23] MEDS: MONTELUKAST 10 MG TAB PO SCH (20:54)
[2016-08-23] MEDS: INSULIN GLARGINE [LANtus] 3 ML PEN SC SCH (21:11)
[2016-08-24] MEDS: VANCOMYCIN 1.5 GM in SOD CHLORIDE 0.9% 250 ML IVPB SCH (00:03)
[2016-08-24] MEDS: ACCU-CHEK XX SCH (02:00)
[2016-08-24] MEDS: CEFEPIME 2GM/50 ML (PMX) 50 ML IVPB SCH (05:31)
[2016-08-24 07:42] VITALS: BP 106/61; RESP 20
[2016-08-24 07:45] LABS: ADD SCAN DIFF NO
[2016-08-24 07:50] LABS: BASOPHILS % 0.3 % (0.0-2.0); EOSINOPHILS # 0.1 10^3/ul (0.0-0.5); EOSINOPHILS % 1.1 % (0.0-7.0); HEMATOCRIT 35.1 % (37.0-47.0); HEMOGLOBIN 10.3 g/dl (12.0-16.0); LYMPHOCYTES # 1.6 10^3/ul (0.8-2.9); LYMPHOCYTES % 14.4 % (15.0-51.0); MEAN CORPUSCULAR HEMOGLOBIN 28.6 pg (29.0-33.0); MEAN CORPUSCULAR HGB CONC 29.3 g/dl (32.0-37.0); MEAN CORPUSCULAR VOLUME 97.5 fl (82.0-101.0); MEAN PLATELET VOLUME 9.6 fl (7.4-10.4); MONOCYTE # 0.8 10^3/ul (0.3-0.9); MONOCYTES % 7.6 % (0.0-11.0); NEUTROPHIL # 8.1 10^3/ul (1.6-7.5); NEUTROPHILS % 73.7 % (39.0-77.0); NUCLEATED RED BLOOD CELLS% 0.4 /100WBC (0.0-0.0); PLATELET COUNT 352 10^3/UL (140-415); RED CELL DISTRIBUTION WIDTH 17.2 % (11.5-14.5)
--- NOTE | 2016-08-24 08:06 | CONS ---
Date/Time of Note Date/Time of Note DATE: 08/24/16 TIME: 08:04 Assessment/Plan Assessment/Plan Chief Complaint/Hosp Course Acute on chronic respiratory failure: Bronch 08/23 concerning for malignancy. Awaiting pathology Chronic afib: rates controlled on 3 agents. On Eliquis which is held for bronch Acute on chronic diastolic heart failure: Mild CHF by exam COPD Recurrent left pleural effusion: s/p multiple thoras in the recent past. CT shows small-mod effusion -continue diltiazem 240mg -MTP 25g BID -digoxin 250mcg (level ok) -bumex 1mg daily to keep even -restart Eliquis when safe (had biopsy of lung 08/23) Problems: Consultation Date/Type/Reason Admit Date/Time Aug 19, 2016 at 23:41 Initial Consult Date 08/20/16 Type of Consultation: Cardiology Referring Provider: BIBI TSANG 24 HR Interval Summary Free Text/Dictation Bronch [place] concerning for malignancy. Awaiting pathology Exam/Review of Systems Vital Signs Vitals Vital Signs Date Time Temp Pulse Resp B/P Pulse Ox O2 Delivery O2 Flow Rate FiO2 08/24/16 07:42 97.5 77 20 106/61 90 08/24/16 02:30 4.0 08/23/16 20:30 Nasal Cannula Intake and Output 08/23/16 08/23/16 08/24/16 15:00 23:00 07:00 Intake Total 340 ml 1510 ml 1500 ml Output Total 1 ml 1600 ml Balance 339 ml 1510 ml -100 ml Exam Constitutional: alert, oriented Psych: no complaints Head: atraumatic, normocephalic Neck: No jvd Respiratory: clear to auscultation, diminished breath sounds Cardiovascular: edema (1+), No regular rate and rhythm, No systolic murmur Gastrointestinal: non-tender, soft 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: nl mental status, nl speech Results Result Diagram: 08/24/16 0708 08/23/16 0710 Results 24 hrs Laboratory Tests Test 08/23/16 08:07 08/23/16 14:45 08/23/16 17:15 08/23/16 20:51 Bedside Glucose 233 H 231 H 255 H 139 Test 08/24/16 07:08 White Blood Count 11.0 H Red Blood Count 3.60 L Hemoglobin 10.3 L Hematocrit 35.1 L Mean Corpuscular Volume 97.5 Mean Corpuscular Hemoglobin 28.6 L Mean Corpuscular Hemoglobin Concent 29.3 L Red Cell Distribution Width 17.2 H Platelet Count 352 Mean Platelet Volume 9.6 Neutrophils % 73.7 Lymphocytes % 14.4 L Monocytes % 7.6 Eosinophils % 1.1 Basophils % 0.3 Nucleated Red Blood Cells % 0.4 H Neutrophils # 8.1 H Lymphocytes # 1.6 Monocytes # 0.8 Eosinophils # 0.1 Basophils # 0.0 Nucleated Red Blood Cells # 0.0 Medications Medications Current Medications Lorazepam (Ativan) 0.5 mg Q6H PRN IV ANXIETY; Start 08/20/16 at 01:00 Acetaminophen (Tylenol Tab) 650 mg Q6H PRN PO PAIN LEVEL 1-3 OR FEVER Last administered on 08/20/16 08:23; Admin Dose 650 MG; Start 08/20/16 at 01:00 Atorvastatin Calcium (Lipitor) 40 mg HS PO Last administered on 08/23/16 20:54 ; Admin Dose 40 MG; Start 08/20/16 at 21:00 Digoxin (Digoxin) 0.25 mg DAILY@13 PO Last administered on 08/23/16 15:16; Admin Dose 0.25 MG; Start 08/20/16 at 13:00 Diltiazem HCl (Cardizem Cd) 240 mg DAILY PO Last administered on 08/23/16 15:15 ; Admin Dose 240 MG; Start 08/20/16 at 09:00 Metoprolol Tartrate (Lopressor) 25 mg BID PO Last administered on 08/22/16 23: 07; Admin Dose 25 MG; Start 08/20/16 at 09:00 Multivitamins Therapeutic (Theragran) 1 tab DAILY PO Last administered on 15:16; Admin Dose 1 TAB; Start 08/20/16 at 09:00 Salmeterol Xinafoate/ Fluticasone (Advair 250/50 Diskus) 1 inh BID INH Last administered on 08/23/16 20:57; Admin Dose 1 INH; Start 08/20/16 at 09:00 Spironolactone (Aldactone) 25 mg DAILY PO Last administered on 08/23/16 15:16; Admin Dose 25 MG; Start 08/20/16 at 09:00 Diagnostic Test (Pha) (Accu-Chek) 1 ea 02 XX Last administered on 08/23/16 03: 00; Admin Dose 1 EA; Start 08/21/16 at 02:00 Miscellaneous Information 1 ea NOTE XX ; Start 08/20/16 at 02:10 Glucose (Glutose) 15 gm Q15M PRN PO DECREASED GLUCOSE; Start 08/20/16 at 02:10 Glucose (Glutose) 22.5 gm Q15M PRN PO DECREASED GLUCOSE; Start 08/20/16 at 02:10 Dextrose (D50w Syringe) 25 ml Q15M PRN IV DECREASED GLUCOSE; Start 08/20/16 at 02:10 Dextrose (D50w Syringe) 50 ml Q15M PRN IV DECREASED GLUCOSE; Start 08/20/16 at 02:10 Glucagon (Glucagen) 1 mg Q15M PRN IM DECREASED GLUCOSE; Start 08/20/16 at 02:10 Glucose 15 gm 15 gm Q15M PRN BUCCAL DECREASED GLUCOSE; Start 08/20/16 at 02:10 Cefepime HCl 50 ml @ 100 mls/hr Q8 IVPB Last administered on 08/24/16 05:31; Admin Dose 100 MLS/HR; Start 08/20/16 at 06:00 Vancomycin HCl/ Sodium Chloride (Vancocin/NS) 250 ml @ 83.333 mls/ hr Q12H IVPB Last administered on 08/24/16 00:03; Admin Dose 83.333 MLS/HR; Start at 12:00 Insulin Glargine (Lantus) 40 unit DAILY@20 SC Last administered on 08/23/16 21: 11; Admin Dose 40 UNIT; Start 08/20/16 at 20:00 Enoxaparin Sodium (Lovenox) 120 mg Q12 SC Last administered on 08/22/16 08:46; Admin Dose 120 MG; Start 08/20/16 at 21:00; Status Future Hold Bumetanide (Bumex) 1 mg DAILY PO Last administered on 08/23/16 15:15; Admin Dose 1 MG; Start 08/20/16 at 12:00 Montelukast Sodium (Singulair) 10 mg HS PO Last administered on 08/23/16 20:54 ; Admin Dose 10 MG; Start 6/4/17 at 21:00 Theophylline (Dorian-24) 200 mg QHS PO Last administered on 08/23/16 20:54; Admin Dose 200 MG; Start 08/21/16 at 21:00 Famotidine (Pepcid) 20 mg DAILY PO Last administered on 08/23/16 15:16; Admin Dose 20 MG; Start 08/22/16 at 17:00 Docusate Sodium (Colace) 100 mg DAILY PO Last administered on 08/23/16 15:16; Admin Dose 100 MG; Start 08/22/16 at 17:00 Lisinopril (Zestril) 2.5 mg DAILY PO Last administered on 08/23/16 15:16; Admin Dose 2.5 MG; Start 08/23/16 at 09:00 Lactobacillus Acidophilus/ Rhamnosus (Culturelle) 1 cap BID PO Last administered on 08/23/16 20:53; Admin Dose 1 CAP; Start 08/23/16 at 12:30 AMY SLOAN Aug 24, 2016 08:06
[2016-08-24 08:19] LABS: ALBUMIN 3.8 g/dl (3.3-4.9); ALBUMIN/GLOBULIN RATIO 1.35; BILIRUBIN,INDIRECT 0.1 mg/dl (0-1.1); BILIRUBIN,TOTAL 0.1 mg/dl (0.2-1.3); CALCIUM 8.5 mg/dl (8.4-10.2); CREATININE 0.89 mg/dl (0.44-1.00); MAGNESIUM 2.1 mg/dl (1.7-2.5); PHOSPHORUS 3.4 mg/dl (2.5-4.9); POTASSIUM 4.7 mmol/L (3.5-5.1); TOTAL PROTEIN 6.6 g/dl (6.1-8.1)
[2016-08-24] MEDS: SALMETEROL/FLUTICASONE 250/50 INHA INH SCH ×2 (08:33→20:20)
[2016-08-24] MEDS: FAMOTIDINE 20 MG TAB PO SCH (08:33)
[2016-08-24] MEDS: DILTIAZEM (CD) 240 MG CAP PO SCH ×2 (08:33→12:31)
[2016-08-24] MEDS: BUMETANIDE 1 MG TAB PO SCH (08:34)
[2016-08-24] MEDS: DOCUSATE SODIUM 100 MG CAP PO SCH (08:34)
[2016-08-24] MEDS: MULTIVITAMINS THERAPEUTIC TAB PO SCH (08:34)
[2016-08-24] MEDS: SPIRONOLACTONE 25 MG TAB PO SCH (08:34)
[2016-08-24] MEDS: INSULIN ASPART [NOVOLOG] 3 ML PEN SC SCH ×7 (08:38→20:23)
[2016-08-24] MEDS: LACTOBACILLUS RHAMNOSUS CAP PO SCH ×2 (08:40→20:20)
[2016-08-24] MEDS: LISINOPRIL 5 MG TAB PO SCH ×2 (08:57→12:30)
[2016-08-24] MEDS: METOPROLOL 25 MG TAB PO SCH ×2 (08:57→20:28)
--- NOTE | 2016-08-24 11:47 | CONS ---
Date/Time of Note Date/Time of Note DATE: 08/24/16 TIME: 11:44 Assessment/Plan Assessment/Plan Additional Assessment/Plan Assessment recommendations; 1. 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 Endobronchial biopsies were done yesterday ,results are pending. 2. Compensated CHF. 3. History of diabetes, hypertension and chronic atrial fibrillation. Continue current treatment. Awaiting pathology results. Consultation Date/Type/Reason Admit Date/Time Aug 19, 2016 at 23:41 Initial Consult Date 08/20/16 Type of Consultation: Pulmonary Referring Provider: BIBI TSANG 24 HR Interval Summary Free Text/Dictation Patient condition is stable. Denies any shortness of breath, coughing, chest pain. Shortness of breath is improving. General exam; elderly woman, awake alert currently in no distress. Sitting in a chair by bedside. Exam/Review of Systems Vital Signs Vitals Vital Signs Date Time Temp Pulse Resp B/P Pulse Ox O2 Delivery O2 Flow Rate FiO2 08/24/16 07:42 97.5 77 20 106/61 90 08/24/16 02:30 4.0 08/23/16 20:30 Nasal Cannula Intake and Output 08/23/16 08/23/16 08/24/16 15:00 23:00 07:00 Intake Total 340 ml 1510 ml 1500 ml Output Total 1 ml 1600 ml Balance 339 ml 1510 ml -100 ml Exam HEENT exam; supple neck, positive JVD. No lymphadenopathy. Midline trachea. No thyromegaly. Patient has multiple missing teeth. Pupils are midsize and reactive to light. Chest examined; improved breath sounds in left lung base. Right lung is clear to auscultation left upper lobe is clear to auscultation S1-S2 audible, no murmurs, irregular rhythm. Abdomen examination; soft, nontender. No organomegaly. Bowel sounds audible. Extremity examination; no peripheral edema. Pulses 2+ bilaterally. [employer] examination; no focal deficit. Results Result Diagram: 08/24/16 0708 08/24/16 0708 Results 24 hrs Laboratory Tests Test 08/23/16 14:45 08/23/16 17:15 08/23/16 20:51 08/24/16 07:08 Bedside Glucose 231 H 255 H 139 White Blood Count 11.0 H Red Blood Count 3.60 L Hemoglobin 10.3 L Hematocrit 35.1 L Mean Corpuscular Volume 97.5 Mean Corpuscular Hemoglobin 28.6 L Mean Corpuscular Hemoglobin Concent 29.3 L Red Cell Distribution Width 17.2 H Platelet Count 352 Mean Platelet Volume 9.6 Neutrophils % 73.7 Lymphocytes % 14.4 L Monocytes % 7.6 Eosinophils % 1.1 Basophils % 0.3 Nucleated Red Blood Cells % 0.4 H Neutrophils # 8.1 H Lymphocytes # 1.6 Monocytes # 0.8 Eosinophils # 0.1 Basophils # 0.0 Nucleated Red Blood Cells # 0.0 Sodium Level 140 Potassium Level 4.7 Chloride Level 95 L Carbon Dioxide Level 38 H Anion Gap 12 Blood Urea Nitrogen 18 Creatinine 0.89 Glucose Level 213 Calcium Level 8.5 Phosphorus Level 3.4 Magnesium Level 2.1 Total Bilirubin 0.1 L Direct Bilirubin 0.00 Indirect Bilirubin 0.1 Aspartate Amino Transf (AST/SGOT) 34 Alanine Aminotransferase (ALT/SGPT) 63 Alkaline Phosphatase 163 H Total Protein 6.6 Albumin 3.8 Globulin 2.80 Albumin/Globulin Ratio 1.35 Digoxin Level 1.2 Test 08/24/16 08:08 Bedside Glucose 237 H Medications Medications Current Medications Lorazepam (Ativan) 0.5 mg Q6H PRN IV ANXIETY; Start 08/20/16 at 01:00 Acetaminophen (Tylenol Tab) 650 mg Q6H PRN PO PAIN LEVEL 1-3 OR FEVER Last administered on 08/20/16 08:23; Admin Dose 650 MG; Start 08/20/16 at 01:00 Atorvastatin Calcium (Lipitor) 40 mg HS PO Last administered on 08/23/16 20:54 ; Admin Dose 40 MG; Start 08/20/16 at 21:00 Digoxin (Digoxin) 0.25 mg DAILY@13 PO Last administered on 08/23/16 15:16; Admin Dose 0.25 MG; Start 08/20/16 at 13:00 Diltiazem HCl (Cardizem Cd) 240 mg DAILY PO Last administered on 08/23/16 15:15 ; Admin Dose 240 MG; Start 08/20/16 at 09:00 Metoprolol Tartrate (Lopressor) 25 mg BID PO Last administered on 08/22/16 23: 07; Admin Dose 25 MG; Start 08/20/16 at 09:00 Multivitamins Therapeutic (Theragran) 1 tab DAILY PO Last administered on 08:34; Admin Dose 1 TAB; Start 08/20/16 at 09:00 Salmeterol Xinafoate/ Fluticasone (Advair 250/50 Diskus) 1 inh BID INH Last administered on 08/24/16 08:33; Admin Dose 1 INH; Start 08/20/16 at 09:00 Spironolactone (Aldactone) 25 mg DAILY PO Last administered on 08/24/16 08:34; Admin Dose 25 MG; Start 08/20/16 at 09:00 Diagnostic Test (Pha) (Accu-Chek) 1 ea 02 XX Last administered on 08/23/16 03: 00; Admin Dose 1 EA; Start 08/21/16 at 02:00 Miscellaneous Information 1 ea NOTE XX ; Start 08/20/16 at 02:10 Glucose (Glutose) 15 gm Q15M PRN PO DECREASED GLUCOSE; Start 08/20/16 at 02:10 Glucose (Glutose) 22.5 gm Q15M PRN PO DECREASED GLUCOSE; Start 08/20/16 at 02:10 Dextrose (D50w Syringe) 25 ml Q15M PRN IV DECREASED GLUCOSE; Start 08/20/16 at 02:10 Dextrose (D50w Syringe) 50 ml Q15M PRN IV DECREASED GLUCOSE; Start 08/20/16 at 02:10 Glucagon (Glucagen) 1 mg Q15M PRN IM DECREASED GLUCOSE; Start 08/20/16 at 02:10 Glucose (Glutose) 15 gm Q15M PRN BUCCAL DECREASED GLUCOSE; Start 08/20/16 at 02: 10 Insulin Glargine (Lantus) 40 unit DAILY@20 SC Last administered on 08/23/16 21: 11; Admin Dose 40 UNIT; Start 08/20/16 at 20:00 Enoxaparin Sodium (Lovenox) 120 mg Q12 SC Last administered on 08/22/16 08:46; Admin Dose 120 MG; Start 08/20/16 at 21:00; Status Future Hold Bumetanide (Bumex) 1 mg DAILY PO Last administered on 08/24/16 08:34; Admin Dose 1 MG; Start 08/20/16 at 12:00 Montelukast Sodium (Singulair) 10 mg HS PO Last administered on 08/23/16 20:54 ; Admin Dose 10 MG; Start 08/21/16 at 21:00 Theophylline (Dorian-24) 200 mg QHS PO Last administered on 08/23/16 20:54; Admin Dose 200 MG; Start 08/21/16 at 21:00 Famotidine (Pepcid) 20 mg DAILY PO Last administered on 08/24/16 08:33; Admin Dose 20 MG; Start 08/22/16 at 17:00 Docusate Sodium (Colace) 100 mg DAILY PO Last administered on 08/24/16 08:34; Admin Dose 100 MG; Start 08/22/16 at 17:00 Lisinopril (Zestril) 2.5 mg DAILY PO Last administered on 08/23/16 15:16; Admin Dose 2.5 MG; Start 08/23/16 at 09:00 Lactobacillus Acidophilus/ Rhamnosus (Culturelle) 1 cap BID PO Last administered on 08/24/16 08:40; Admin Dose 1 CAP; Start 08/23/16 at 12:30 Levofloxacin (Levaquin) 750 mg DAILY@06 PO ; Start 08/24/16 at 13:00 Magnesium Hydroxide (Milk Of Mag) 30 ml BID PO ; Start 08/24/16 at 12:00 Bisacodyl (Dulcolax) 10 mg DAILY PO ; Start 08/24/16 at 12:00 MAGALYS CHAPIN Aug 24, 2016 11:47
[2016-08-24] MEDS: MAGNESIUM HYDROXIDE 30ML CUP PO SCH ×2 (12:00→20:20)
[2016-08-24] MEDS: DIGOXIN 0.25 MG TAB PO SCH (12:29)
[2016-08-24] MEDS: LEVOFLOXACIN 750 MG TABLET PO SCH (12:47)
[2016-08-24] MEDS: BISACODYL (EC) 5 MG TAB PO SCH (12:50)
--- NOTE | 2016-08-24 14:56 | PN ---
Date/Time of Note Date/Time of Note DATE: 08/24/16 TIME: 14:53 Assessment/Plan VTE Prophylaxis VTE Prophylaxis Intervention: contraindicated (Recent biopsy) Lines/Catheters IV C[facility] Type ([facility] Urinary Cath still in place: No Assessment/Plan Chief Complaint/Hosp Course S: 08/22 no events. Son updated at patient's request. 08/23 patient for Bronch, no events overnight 08/24 no events; sp Bronch O: Vss PE No pallor/ JVD Appears irreg, no m/r/g Dimin bs. No tachypnea Bs + nt nd, no R/R/G; obese No edema A/P 1. Parapneumonic effusion? stable. Rx diastolic dysfunction. Dc home tomorrow if ok w pulmonary & cardio. 2. Chr A fib hold Lovenox/Eliquis; post bronch. Slight risk of stroke but bleeding risk worse. 3. Chr respiratory failure/home O2 status 4. Sleep apnea hypoventilation syndrome? 5. Nonadherence 6. Diastolic dysfunction? cLVH 7. Diabetes/metabolic syndrome. A1c 9.3 8. Chr COPD 9. Past tobacco use 10. Anemia 11. PAH- 55mm 12. 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 Abnormal CA 125? 14. Left lower lobe endobronchial lesion. Pathology potentially back Monday. Anticipate pulmonary follow-up and oncology if needed. 15. Postobstructive pneumonia. Short course of antibiotics. Problems: Exam/Review of Systems Vital Signs Vitals Vital Signs Date Time Temp Pulse Resp B/P Pulse Ox O2 Delivery O2 Flow Rate FiO2 08/24/16 07:42 97.5 77 20 106/61 90 08/24/16 02:30 4.0 08/23/16 20:30 Nasal Cannula Intake and Output 08/23/16 08/23/16 08/24/16 15:00 23:00 07:00 Intake Total 340 ml 1510 ml 1500 ml Output Total 1 ml 1600 ml Balance 339 ml 1510 ml -100 ml Results Result Diagram: 08/24/16 0708 08/24/16 0708 Results 24 hrs Laboratory Tests Test 08/23/16 17:15 08/23/16 20:51 08/24/16 07:08 08/24/16 08:08 Bedside Glucose 255 H 139 237 H White Blood Count 11.0 H Red Blood Count 3.60 L Hemoglobin 10.3 L Hematocrit 35.1 L Mean Corpuscular Volume 97.5 Mean Corpuscular Hemoglobin 28.6 L Mean Corpuscular Hemoglobin Concent 29.3 L Red Cell Distribution Width 17.2 H Platelet Count 352 Mean Platelet Volume 9.6 Neutrophils % 73.7 Lymphocytes % 14.4 L Monocytes % 7.6 Eosinophils % 1.1 Basophils % 0.3 Nucleated Red Blood Cells % 0.4 H Neutrophils # 8.1 H Lymphocytes # 1.6 Monocytes # 0.8 Eosinophils # 0.1 Basophils # 0.0 Nucleated Red Blood Cells # 0.0 Sodium Level 140 Potassium Level 4.7 Chloride Level 95 L Carbon Dioxide Level 38 H Anion Gap 12 Blood Urea Nitrogen 18 Creatinine 0.89 Glucose Level 213 Calcium Level 8.5 Phosphorus Level 3.4 Magnesium Level 2.1 Total Bilirubin 0.1 L Direct Bilirubin 0.00 Indirect Bilirubin 0.1 Aspartate Amino Transf (AST/SGOT) 34 Alanine Aminotransferase (ALT/SGPT) 63 Alkaline Phosphatase 163 H Total Protein 6.6 Albumin 3.8 Globulin 2.80 Albumin/Globulin Ratio 1.35 Digoxin Level 1.2 Test 08/24/16 12:10 Bedside Glucose 325 H Medications Medications Current Medications Lorazepam (Ativan) 0.5 mg Q6H PRN IV ANXIETY; Start 08/20/16 at 01:00 Acetaminophen (Tylenol Tab) 650 mg Q6H PRN PO PAIN LEVEL 1-3 OR FEVER Last administered on 08/20/16 08:23; Admin Dose 650 MG; Start 08/20/16 at 01:00 Atorvastatin Calcium (Lipitor) 40 mg HS PO Last administered on 08/23/16 20:54 ; Admin Dose 40 MG; Start 08/20/16 at 21:00 Digoxin (Digoxin) 0.25 mg DAILY@13 PO Last administered on 08/24/16 12:29; Admin Dose 0.25 MG; Start 08/20/16 at 13:00 Diltiazem HCl (Cardizem Cd) 240 mg DAILY PO Last administered on 08/24/16 12:31 ; Admin Dose 240 MG; Start 08/20/16 at 09:00 Metoprolol Tartrate (Lopressor) 25 mg BID PO Last administered on 08/22/16 23: 07; Admin Dose 25 MG; Start 08/20/16 at 09:00 Multivitamins Therapeutic (Theragran) 1 tab DAILY PO Last administered on 08:34; Admin Dose 1 TAB; Start 08/20/16 at 09:00 Salmeterol Xinafoate/ Fluticasone (Advair 250/50 Diskus) 1 inh BID INH Last administered on 08/24/16 08:33; Admin Dose 1 INH; Start 08/20/16 at 09:00 Spironolactone (Aldactone) 25 mg DAILY PO Last administered on 08/24/16 08:34; Admin Dose 25 MG; Start 08/20/16 at 09:00 Diagnostic Test (Pha) (Accu-Chek) 1 ea 02 XX Last administered on 08/23/16 03: 00; Admin Dose 1 EA; Start 08/21/16 at 02:00 Miscellaneous Information 1 ea NOTE XX ; Start 08/20/16 at 02:10 Glucose (Glutose) 15 gm Q15M PRN PO DECREASED GLUCOSE; Start 08/20/16 at 02:10 Glucose (Glutose) 22.5 gm Q15M PRN PO DECREASED GLUCOSE; Start 08/20/16 at 02:10 Dextrose (D50w Syringe) 25 ml Q15M PRN IV DECREASED GLUCOSE; Start 08/20/16 at 02:10 Dextrose (D50w Syringe) 50 ml Q15M PRN IV DECREASED GLUCOSE; Start 08/20/16 at 02:10 Glucagon (Glucagen) 1 mg Q15M PRN IM DECREASED GLUCOSE; Start 08/20/16 at 02:10 Glucose (Glutose) 15 gm Q15M PRN BUCCAL DECREASED GLUCOSE; Start 08/20/16 at 02: 10 Insulin Glargine (Lantus) 40 unit DAILY@20 SC Last administered on 08/23/16 21: 11; Admin Dose 40 UNIT; Start 08/20/16 at 20:00 Enoxaparin Sodium (Lovenox) 120 mg Q12 SC Last administered on 08/22/16 08:46; Admin Dose 120 MG; Start 08/20/16 at 21:00; Status Future Hold Bumetanide (Bumex) 1 mg DAILY PO Last administered on 08/24/16 08:34; Admin Dose 1 MG; Start 08/20/16 at 12:00 Montelukast Sodium (Singulair) 10 mg HS PO Last administered on 08/23/16 20:54 ; Admin Dose 10 MG; Start 08/21/16 at 21:00 Theophylline (Dorian-24) 200 mg QHS PO Last administered on 08/23/16 20:54; Admin Dose 200 MG; Start 08/21/16 at 21:00 Famotidine (Pepcid) 20 mg DAILY PO Last administered on 08/24/16 08:33; Admin Dose 20 MG; Start 08/22/16 at 17:00 Docusate Sodium (Colace) 100 mg DAILY PO Last administered on 08/24/16 08:34; Admin Dose 100 MG; Start 08/22/16 at 17:00 Lisinopril (Zestril) 2.5 mg DAILY PO Last administered on 08/24/16 12:30; Admin Dose 2.5 MG; Start 08/23/16 at 09:00 Lactobacillus Acidophilus/ Rhamnosus (Culturelle) 1 cap BID PO Last administered on 08/24/16 08:40; Admin Dose 1 CAP; Start 08/23/16 at 12:30 Levofloxacin (Levaquin) 750 mg DAILY@06 PO Last administered on 08/24/16 12:47 ; Admin Dose 750 MG; Start 08/24/16 at 13:00 Magnesium Hydroxide (Milk Of Mag) 30 ml BID PO ; Start 08/24/16 at 12:00 Bisacodyl (Dulcolax) 10 mg DAILY PO Last administered on 08/24/16 12:50; Admin Dose 10 MG; Start 08/24/16 at 12:00 ROMI RILEY MD Aug 24, 2016 14:56
[2016-08-24] MEDS ORDERED: BISACODYL (EC) 5 MG TAB PO ONE (15:00)
[2016-08-24 20:00] VITALS: BP 120/92; RESP 20
[2016-08-24] MEDS: ATORVASTATIN 40 MG TAB PO SCH (20:20)
[2016-08-24] MEDS: MONTELUKAST 10 MG TAB PO SCH (20:20)
[2016-08-24] MEDS: INSULIN GLARGINE [LANtus] 3 ML PEN SC SCH (20:23)
[2016-08-24] MEDS: THEOPHYLLINE (SR) 200 MG CAPSR PO SCH (20:28)
[2016-08-25] MEDS: ACCU-CHEK XX SCH (01:55)
[2016-08-25 06:21] LABS: ADD SCAN DIFF NO
[2016-08-25 06:30] LABS: BASOPHILS % 0.2 % (0.0-2.0); EOSINOPHILS # 0.2 10^3/ul (0.0-0.5); EOSINOPHILS % 1.4 % (0.0-7.0); HEMATOCRIT 34.5 % (37.0-47.0); HEMOGLOBIN 10.3 g/dl (12.0-16.0); LYMPHOCYTES % 17.7 % (15.0-51.0); MEAN CORPUSCULAR HEMOGLOBIN 28.7 pg (29.0-33.0); MEAN CORPUSCULAR HGB CONC 29.9 g/dl (32.0-37.0); MEAN CORPUSCULAR VOLUME 96.1 fl (82.0-101.0); MEAN PLATELET VOLUME 9.7 fl (7.4-10.4); MONOCYTE # 0.8 10^3/ul (0.3-0.9); MONOCYTES % 7.3 % (0.0-11.0); NEUTROPHIL # 8.1 10^3/ul (1.6-7.5); NEUTROPHILS % 71.3 % (39.0-77.0); NUCLEATED RED BLOOD CELLS # 0.1 10^3/ul (0.0-0.0); NUCLEATED RED BLOOD CELLS% 0.4 /100WBC (0.0-0.0); PLATELET COUNT 368 10^3/UL (140-415); RED BLOOD COUNT 3.59 10^6/ul (4.20-5.40); RED CELL DISTRIBUTION WIDTH 17.2 % (11.5-14.5); WHITE BLOOD COUNT 11.3 10^3/ul (4.8-10.8)
[2016-08-25] MEDS: LEVOFLOXACIN 750 MG TABLET PO SCH (06:34)
[2016-08-25 06:48] LABS: CALCIUM 8.4 mg/dl (8.4-10.2); CREATININE 0.8 mg/dl (0.44-1.00); MAGNESIUM 2.2 mg/dl (1.7-2.5); POTASSIUM 4.8 mmol/L (3.5-5.1)
[2016-08-25 07:34] VITALS: BP 129/62; RESP 18
[2016-08-25] MEDS: SALMETEROL/FLUTICASONE 250/50 INHA INH SCH ×2 (08:12→20:25)
[2016-08-25] MEDS: THIAMINE 100 MG TAB PO SCH (08:13)
[2016-08-25] MEDS: MULTIVITAMINS THERAPEUTIC TAB PO SCH (08:13)
[2016-08-25] MEDS: BISACODYL (EC) 5 MG TAB PO SCH (08:13)
[2016-08-25] MEDS: METOPROLOL 25 MG TAB PO SCH ×2 (08:14→20:25)
[2016-08-25] MEDS: LISINOPRIL 5 MG TAB PO SCH (08:14)
[2016-08-25] MEDS: LACTOBACILLUS RHAMNOSUS CAP PO SCH ×2 (08:14→20:24)
[2016-08-25] MEDS: BUMETANIDE 1 MG TAB PO SCH (08:14)
[2016-08-25] MEDS: DILTIAZEM (CD) 240 MG CAP PO SCH (08:15)
[2016-08-25] MEDS: SPIRONOLACTONE 25 MG TAB PO SCH (08:15)
[2016-08-25] MEDS: DOCUSATE SODIUM 100 MG CAP PO SCH (08:15)
[2016-08-25] MEDS: MAGNESIUM HYDROXIDE 30ML CUP PO SCH ×2 (08:15→20:31)
[2016-08-25] MEDS: FAMOTIDINE 20 MG TAB PO SCH (08:15)
--- NOTE | 2016-08-25 08:18 | CONS ---
Date/Time of Note Date/Time of Note DATE: 08/25/16 TIME: 08:17 Assessment/Plan Assessment/Plan Chief Complaint/Hosp Course Acute on chronic respiratory failure: Bronch 08/23 concerning for malignancy but pathology negative Chronic afib: rates controlled on 3 agents. On Eliquis which is held for bronch Acute on chronic diastolic heart failure: Mild CHF by exam COPD Recurrent left pleural effusion: s/p multiple thoras in the recent past. CT shows small-mod effusion -continue diltiazem 240mg -MTP 25g BID -digoxin 250mcg (level ok) -bumex 1mg daily to keep even -restart Eliquis when safe (had biopsy of lung 08/23) Problems: Consultation Date/Type/Reason Admit Date/Time Aug 19, 2016 at 23:41 Initial Consult Date 08/20/16 Type of Consultation: Cardiololgy Referring Provider: BIBI TSANG 24 HR Interval Summary Free Text/Dictation Biopsy negative for malignancy. Still with exertional dyspnea Exam/Review of Systems Vital Signs Vitals Vital Signs Date Time Temp Pulse Resp B/P Pulse Ox O2 Delivery O2 Flow Rate FiO2 08/25/16 07:34 98.9 79 18 129/62 92 08/24/16 21:24 4.0 08/24/16 20:15 Nasal Cannula Intake and Output 08/24/16 08/24/16 08/25/16 15:00 23:00 07:00 Intake Total 1120 ml 700 ml Output Total 800 ml Balance 1120 ml -100 ml Exam Constitutional: alert, oriented Head: atraumatic, normocephalic Neck: No jvd Respiratory: clear to auscultation, diminished breath sounds Cardiovascular: edema (1+), regular rate and rhythm Gastrointestinal: non-tender 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: nl mental status, nl speech Results Result Diagram: 08/25/16 0546 08/25/16 0546 Results 24 hrs Laboratory Tests Test 08/24/16 12:10 08/24/16 16:58 08/24/16 20:18 08/25/16 05:46 Bedside Glucose 325 H 203 174 White Blood Count 11.3 H Red Blood Count 3.59 L Hemoglobin 10.3 L Hematocrit 34.5 L Mean Corpuscular Volume 96.1 Mean Corpuscular Hemoglobin 28.7 L Mean Corpuscular Hemoglobin Concent 29.9 L Red Cell Distribution Width 17.2 H Platelet Count 368 Mean Platelet Volume 9.7 Neutrophils % 71.3 Lymphocytes % 17.7 Monocytes % 7.3 Eosinophils % 1.4 Basophils % 0.2 Nucleated Red Blood Cells % 0.4 H Neutrophils # 8.1 H Lymphocytes # 2.0 Monocytes # 0.8 Eosinophils # 0.2 Basophils # 0.0 Nucleated Red Blood Cells # 0.1 H Sodium Level 138 Potassium Level 4.8 Chloride Level 92 L Carbon Dioxide Level 41 *H Anion Gap 10 Blood Urea Nitrogen 17 Creatinine 0.80 Glucose Level 183 Calcium Level 8.4 Phosphorus Level 3.0 Magnesium Level 2.2 Test 08/25/16 07:58 Bedside Glucose 167 Medications Medications Current Medications Lorazepam (Ativan) 0.5 mg Q6H PRN IV ANXIETY; Start 08/20/16 at 01:00 Acetaminophen (Tylenol Tab) 650 mg Q6H PRN PO PAIN LEVEL 1-3 OR FEVER Last administered on 08/20/16 08:23; Admin Dose 650 MG; Start 08/20/16 at 01:00 Atorvastatin Calcium (Lipitor) 40 mg HS PO Last administered on 08/24/16 20:20 ; Admin Dose 40 MG; Start 08/20/16 at 21:00 Digoxin (Digoxin) 0.25 mg DAILY@13 PO Last administered on 08/24/16 12:29; Admin Dose 0.25 MG; Start 08/20/16 at 13:00 Diltiazem HCl (Cardizem Cd) 240 mg DAILY PO Last administered on 08/24/16 12:31 ; Admin Dose 240 MG; Start 08/20/16 at 09:00 Metoprolol Tartrate (Lopressor) 25 mg BID PO Last administered on 08/24/16 20: 28; Admin Dose 25 MG; Start 08/20/16 at 09:00 Multivitamins Therapeutic (Theragran) 1 tab DAILY PO Last administered on 08:34; Admin Dose 1 TAB; Start 08/20/16 at 09:00 Salmeterol Xinafoate/ Fluticasone (Advair 250/50 Diskus) 1 inh BID INH Last administered on 08/24/16 20:20; Admin Dose 1 INH; Start 08/20/16 at 09:00 Spironolactone (Aldactone) 25 mg DAILY PO Last administered on 08/24/16 08:34; Admin Dose 25 MG; Start 08/20/16 at 09:00 Diagnostic Test (Pha) (Accu-Chek) 1 ea 02 XX Last administered on 08/23/16 03: 00; Admin Dose 1 EA; Start 08/21/16 at 02:00 Miscellaneous Information 1 ea NOTE XX ; Start 08/20/16 at 02:10 Glucose (Glutose) 15 gm Q15M PRN PO DECREASED GLUCOSE; Start 08/20/16 at 02:10 Glucose (Glutose) 22.5 gm Q15M PRN PO DECREASED GLUCOSE; Start 08/20/16 at 02:10 Dextrose (D50w Syringe) 25 ml Q15M PRN IV DECREASED GLUCOSE; Start 08/20/16 at 02:10 Dextrose (D50w Syringe) 50 ml Q15M PRN IV DECREASED GLUCOSE; Start 08/20/16 at 02:10 Glucagon (Glucagen) 1 mg Q15M PRN IM DECREASED GLUCOSE; Start 08/20/16 at 02:10 Glucose (Glutose) 15 gm Q15M PRN BUCCAL DECREASED GLUCOSE; Start 08/20/16 at 02: 10 Enoxaparin Sodium (Lovenox) 120 mg Q12 SC Last administered on 08/22/16 08:46; Admin Dose 120 MG; Start 08/20/16 at 21:00; Status Future Hold Bumetanide (Bumex) 1 mg DAILY PO Last administered on 08/24/16 08:34; Admin Dose 1 MG; Start 08/20/16 at 12:00 Montelukast Sodium (Singulair) 10 mg HS PO Last administered on 08/24/16 20:20 ; Admin Dose 10 MG; Start 08/21/16 at 21:00 Theophylline (Dorian-24) 200 mg QHS PO Last administered on 08/23/16 20:54; Admin Dose 200 MG; Start 08/21/16 at 21:00 Famotidine (Pepcid) 20 mg DAILY PO Last administered on 08/24/16 08:33; Admin Dose 20 MG; Start 08/22/16 at 17:00 Docusate Sodium (Colace) 100 mg DAILY PO Last administered on 08/24/16 08:34; Admin Dose 100 MG; Start 08/22/16 at 17:00 Lisinopril (Zestril) 2.5 mg DAILY PO Last administered on 08/24/16 12:30; Admin Dose 2.5 MG; Start 08/23/16 at 09:00 Lactobacillus Acidophilus/ Rhamnosus (Culturelle) 1 cap BID PO Last administered on 08/24/16 20:20; Admin Dose 1 CAP; Start 08/23/16 at 12:30 Levofloxacin (Levaquin) 750 mg DAILY@06 PO Last administered on 08/25/16 06:34 ; Admin Dose 750 MG; Start 08/24/16 at 13:00 Magnesium Hydroxide (Milk Of Mag) 30 ml BID PO ; Start 08/24/16 at 12:00 Bisacodyl (Dulcolax) 10 mg DAILY PO Last administered on 08/24/16 12:50; Admin Dose 10 MG; Start 08/24/16 at 12:00 Insulin Glargine (Lantus) 45 unit DAILY@20 SC Last administered on 08/24/16 20: 23; Admin Dose 45 UNIT; Start 08/24/16 at 20:00 Thiamine HCl (Vitamin B1) 100 mg DAILY PO ; Start 08/25/16 at 09:00 AMY SLOAN Aug 25, 2016 08:18
[2016-08-25] MEDS: INSULIN ASPART [NOVOLOG] 3 ML PEN SC SCH ×7 (08:27→21:05)
--- NOTE | 2016-08-25 11:04 | CONS ---
Date/Time of Note Date/Time of Note DATE: 08/25/16 TIME: 11:01 Assessment/Plan Assessment/Plan Additional Assessment/Plan Assessment recommendations; next 1. Patient admitted for recurrent left lower lobe pneumonia due to atelectasis with severe left lower lobe superior segment endobronchial inflammation. Endobronchial biopsies are negative for malignancy showing inflammatory changes only. However underlying malignancy still cannot be excluded entirely. 2. History of CHF, atrial fibrillation, diabetes and hypertension. 3. History of heavy smoking in the past. Patient can be discharged home on prednisone 10 mg a day to be used for at least 3 weeks. Patient will need to have a repeat bronchoscopy done after 3 weeks. To assess left lower lobe superior segment division. Consultation Date/Type/Reason Admit Date/Time Aug 19, 2016 at 23:41 Initial Consult Date 08/20/16 Type of Consultation: Pulmonary Referring Provider: BIBI TSANG 24 HR Interval Summary Free Text/Dictation Patient condition stable. Denies any shortness of breath, chest pain, coughing wheezing. General exam; elderly woman, awake alert currently in no distress. Exam/Review of Systems Vital Signs Vitals Vital Signs Date Time Temp Pulse Resp B/P Pulse Ox O2 Delivery O2 Flow Rate FiO2 08/25/16 07:34 98.9 79 18 129/62 92 08/24/16 21:24 4.0 08/24/16 20:15 Nasal Cannula Intake and Output 08/24/16 08/24/16 08/25/16 15:00 23:00 07:00 Intake Total 1120 ml 700 ml Output Total 800 ml Balance 1120 ml -100 ml Exam HEENT exam; supple neck, no JVD. No lymphadenopathy. Midline trachea. No thyromegaly. Patient has multiple missing teeth. Chest examination; diminished but clear breath sounds bilaterally. No added sound. S1-S2 audible, irregular rhythm. No murmurs. Abdomen examination; soft, protuberant. No organomegaly. Bowel sounds audible. Extremity examination; no peripheral edema. Pulses 2+ bilaterally. C[employer] examination; no focal deficit. Results Result Diagram: 08/25/16 0546 08/25/16 0546 Results 24 hrs Laboratory Tests Test 08/24/16 12:10 08/24/16 16:58 08/24/16 20:18 08/25/16 05:46 Bedside Glucose 325 H 203 174 White Blood Count 11.3 H Red Blood Count 3.59 L Hemoglobin 10.3 L Hematocrit 34.5 L Mean Corpuscular Volume 96.1 Mean Corpuscular Hemoglobin 28.7 L Mean Corpuscular Hemoglobin Concent 29.9 L Red Cell Distribution Width 17.2 H Platelet Count 368 Mean Platelet Volume 9.7 Neutrophils % 71.3 Lymphocytes % 17.7 Monocytes % 7.3 Eosinophils % 1.4 Basophils % 0.2 Nucleated Red Blood Cells % 0.4 H Neutrophils # 8.1 H Lymphocytes # 2.0 Monocytes # 0.8 Eosinophils # 0.2 Basophils # 0.0 Nucleated Red Blood Cells # 0.1 H Sodium Level 138 Potassium Level 4.8 Chloride Level 92 L Carbon Dioxide Level 41 *H Anion Gap 10 Blood Urea Nitrogen 17 Creatinine 0.80 Glucose Level 183 Calcium Level 8.4 Phosphorus Level 3.0 Magnesium Level 2.2 Test 08/25/16 07:58 Bedside Glucose 167 Medications Medications Current Medications Lorazepam (Ativan) 0.5 mg Q6H PRN IV ANXIETY; Start 08/20/16 at 01:00 Acetaminophen (Tylenol Tab) 650 mg Q6H PRN PO PAIN LEVEL 1-3 OR FEVER Last administered on 08/20/16 08:23; Admin Dose 650 MG; Start 08/20/16 at 01:00 Atorvastatin Calcium (Lipitor) 40 mg HS PO Last administered on 08/24/16 20:20 ; Admin Dose 40 MG; Start 08/20/16 at 21:00 Digoxin (Digoxin) 0.25 mg DAILY@13 PO Last administered on 08/24/16 12:29; Admin Dose 0.25 MG; Start 08/20/16 at 13:00 Diltiazem HCl (Cardizem Cd) 240 mg DAILY PO Last administered on 08/25/16 08:15 ; Admin Dose 240 MG; Start 08/20/16 at 09:00 Metoprolol Tartrate (Lopressor) 25 mg BID PO Last administered on 08/25/16 08: 14; Admin Dose 25 MG; Start 08/20/16 at 09:00 Multivitamins Therapeutic (Theragran) 1 tab DAILY PO Last administered on 08:13; Admin Dose 1 TAB; Start 08/20/16 at 09:00 Salmeterol Xinafoate/ Fluticasone (Advair 250/50 Diskus) 1 inh BID INH Last administered on 08/25/16 08:12; Admin Dose 1 INH; Start 08/20/16 at 09:00 Spironolactone (Aldactone) 25 mg DAILY PO Last administered on 08/25/16 08:15; Admin Dose 25 MG; Start 08/20/16 at 09:00 Diagnostic Test (Pha) (Accu-Chek) 1 ea 02 XX Last administered on 08/23/16 03: 00; Admin Dose 1 EA; Start 08/21/16 at 02:00 Miscellaneous Information 1 ea NOTE XX ; Start 08/20/16 at 02:10 Glucose (Glutose) 15 gm Q15M PRN PO DECREASED GLUCOSE; Start 08/20/16 at 02:10 Glucose (Glutose) 22.5 gm Q15M PRN PO DECREASED GLUCOSE; Start 08/20/16 at 02:10 Dextrose (D50w Syringe) 25 ml Q15M PRN IV DECREASED GLUCOSE; Start 08/20/16 at 02:10 Dextrose (D50w Syringe) 50 ml Q15M PRN IV DECREASED GLUCOSE; Start 08/20/16 at 02:10 Glucagon (Glucagen) 1 mg Q15M PRN IM DECREASED GLUCOSE; Start 08/20/16 at 02:10 Glucose (Glutose) 15 gm Q15M PRN BUCCAL DECREASED GLUCOSE; Start 08/20/16 at 02: 10 Enoxaparin Sodium (Lovenox) 120 mg Q12 SC Last administered on 08/22/16 08:46; Admin Dose 120 MG; Start 08/20/16 at 21:00; Status Future Hold Bumetanide (Bumex) 1 mg DAILY PO Last administered on 08/25/16 08:14; Admin Dose 1 MG; Start 08/20/16 at 12:00 Montelukast Sodium (Singulair) 10 mg HS PO Last administered on 08/24/16 20:20 ; Admin Dose 10 MG; Start 08/21/16 at 21:00 Theophylline (Dorian-24) 200 mg QHS PO Last administered on 08/23/16 20:54; Admin Dose 200 MG; Start 08/21/16 at 21:00 Famotidine (Pepcid) 20 mg DAILY PO Last administered on 08/25/16 08:15; Admin Dose 20 MG; Start 08/22/16 at 17:00 Docusate Sodium (Colace) 100 mg DAILY PO Last administered on 08/25/16 08:15; Admin Dose 100 MG; Start 08/22/16 at 17:00 Lisinopril (Zestril) 2.5 mg DAILY PO Last administered on 08/25/16 08:14; Admin Dose 2.5 MG; Start 08/23/16 at 09:00 Lactobacillus Acidophilus/ Rhamnosus (Culturelle) 1 cap BID PO Last administered on 08/25/16 08:14; Admin Dose 1 CAP; Start 08/23/16 at 12:30 Levofloxacin (Levaquin) 750 mg DAILY@06 PO Last administered on 08/25/16 06:34 ; Admin Dose 750 MG; Start 08/24/16 at 13:00 Magnesium Hydroxide (Milk Of Mag) 30 ml BID PO ; Start 08/24/16 at 12:00 Bisacodyl (Dulcolax) 10 mg DAILY PO Last administered on 08/25/16 08:13; Admin Dose 10 MG; Start 08/24/16 at 12:00 Insulin Glargine (Lantus) 45 unit DAILY@20 SC Last administered on 08/24/16 20: 23; Admin Dose 45 UNIT; Start 08/24/16 at 20:00 Thiamine HCl (Vitamin B1) 100 mg DAILY PO Last administered on 08/25/16 08:13; Admin Dose 100 MG; Start 08/25/16 at 09:00 MAGALYS CHAPIN 8, 2017 11:04
[2016-08-25] MEDS: DIGOXIN 0.25 MG TAB PO SCH (12:13)
[2016-08-25] MEDS: predniSONE 10 MG TAB PO SCH (12:41)
--- NOTE | 2016-08-25 14:54 | PDOCDIS ---
Discharge Instructions DIAGNOSIS Discharge Diagnosis: pneumonia; copd CONDITION Patient Condition: Stable HOME CARE INSTRUCTIONS: Special Diet: 1500 urvashi ADAYour diet recommendation is: no added salt ACTIVITY: Activity Restrictions: Slowly Increase Activity Do not Drive FOLLOW UP/APPOINTMENTS Appointments appt Dr Drake - 1wk PCP -1wk Cardiology -3wks Check weight & record once a week. oxygen 4L most of day/ night. ROMI RILEY MD Aug 25, 2016 14:54
[2016-08-25] MEDS ORDERED: THEO200C3 PO (15:02)
[2016-08-25] MEDS ORDERED: LACT1CAP57 PO (15:02)
[2016-08-25] MEDS ORDERED: DOCU-216 PO (15:02)
[2016-08-25] MEDS ORDERED: VALS40TA2 PO (15:02)
[2016-08-25] MEDS ORDERED: PRED10TA PO (15:02)
[2016-08-25] MEDS ORDERED: MONT10TA24 PO (15:02)
[2016-08-25] MEDS ORDERED: Thiamine PO (15:02)
[2016-08-25] MEDS ORDERED: ACET325T40 PO (15:02)
[2016-08-25] MEDS ORDERED: BUME1TAB18 PO (15:02)
[2016-08-25] MEDS ORDERED: FAMO20TA18 PO (15:02)
[2016-08-25] MEDS ORDERED: LEVO750T25 PO (15:02)
[2016-08-25 20:00] VITALS: BP 120/74; RESP 20
[2016-08-25] MEDS: MONTELUKAST 10 MG TAB PO SCH (20:24)
[2016-08-25] MEDS: ATORVASTATIN 40 MG TAB PO SCH (20:24)
[2016-08-25] MEDS: INSULIN GLARGINE [LANtus] 3 ML PEN SC SCH (20:30)
[2016-08-25] MEDS: THEOPHYLLINE (SR) 200 MG CAPSR PO SCH (20:31)
[2016-08-25] MEDS ORDERED: INSULIN ASPART [NOVOLOG] 3 ML PEN SC ONE (21:00)
[2016-08-26] MEDS: ACCU-CHEK XX SCH (02:00)
[2016-08-26] MEDS: LEVOFLOXACIN 750 MG TABLET PO SCH (06:03)
[2016-08-26 07:32] VITALS: BP 106/55; RESP 20
[2016-08-26] MEDS: INSULIN ASPART [NOVOLOG] 3 ML PEN SC SCH ×6 (08:25→17:24)
[2016-08-26] MEDS: LACTOBACILLUS RHAMNOSUS CAP PO SCH (08:36)
[2016-08-26] MEDS: MULTIVITAMINS THERAPEUTIC TAB PO SCH (08:39)
[2016-08-26] MEDS: predniSONE 10 MG TAB PO SCH (08:39)
[2016-08-26] MEDS: SPIRONOLACTONE 25 MG TAB PO SCH (08:39)
[2016-08-26] MEDS: SALMETEROL/FLUTICASONE 250/50 INHA INH SCH (08:39)
[2016-08-26] MEDS: BISACODYL (EC) 5 MG TAB PO SCH (08:39)
[2016-08-26] MEDS: MAGNESIUM HYDROXIDE 30ML CUP PO SCH (08:40)
[2016-08-26] MEDS: METOPROLOL 25 MG TAB PO SCH (08:40)
[2016-08-26] MEDS: DOCUSATE SODIUM 100 MG CAP PO SCH (08:40)
[2016-08-26] MEDS: LISINOPRIL 5 MG TAB PO SCH (08:41)
[2016-08-26] MEDS: DILTIAZEM (CD) 240 MG CAP PO SCH (08:41)
[2016-08-26] MEDS: THIAMINE 100 MG TAB PO SCH (08:41)
[2016-08-26] MEDS: FAMOTIDINE 20 MG TAB PO SCH (08:42)
[2016-08-26] MEDS: BUMETANIDE 1 MG TAB PO SCH (08:42)
--- NOTE | 2016-08-26 10:41 | CONS ---
Date/Time of Note Date/Time of Note DATE: 08/26/16 TIME: 10:40 Consult Date/Type/Reason Admit Date/Time Aug 19, 2016 at 23:41 Initial Consult Date 08/20/16 Type of Consultation: Pulmonary Ordering Provider: BIBI TSANG Subjective Patient states she still somewhat short of breath on minimal exertion. Objective Vital Signs Date Time Temp Pulse Resp B/P Pulse Ox O2 Delivery O2 Flow Rate FiO2 08/26/16 07:45 4.0 08/26/16 07:32 97.3 55 20 106/55 96 08/25/16 20:15 Nasal Cannula Intake and Output 08/25/16 08/25/16 08/26/16 15:00 23:00 07:00 Intake Total 1080 ml 500 ml Balance 1080 ml 500 ml Exam GENERAL: Morbidly obese lady comfortable at rest no acute distress VITAL SIGNS: per chart NECK: Supple. No JVD or lymphadenopathy. CARDIAC EXAM: S1, S2. No added sounds or murmurs. CHEST: diminished air entry both lung bases ABDOMEN: No guarding or rebound. Obese soft nontender EXTREMITIES: No cyanosis, clubbing or edema. NEUROLOGIC: Generalized weakness. No focal deficits. Results/Medications Result Diagram: 08/25/16 0546 08/25/16 0546 Results 24 hrs Laboratory Tests Test 08/25/16 12:08 08/25/16 17:20 08/25/16 20:21 08/26/16 02:21 Bedside Glucose 285 H 304 H 308 H 230 H Test 08/26/16 08:08 Bedside Glucose 213 Medications Current Medications Lorazepam (Ativan) 0.5 mg Q6H PRN IV ANXIETY; Start 08/20/16 at 01:00 Acetaminophen (Tylenol Tab) 650 mg Q6H PRN PO PAIN LEVEL 1-3 OR FEVER Last administered on 08/20/16 08:23; Admin Dose 650 MG; Start 08/20/16 at 01:00 Atorvastatin Calcium (Lipitor) 40 mg HS PO Last administered on 08/25/16 20:24 ; Admin Dose 40 MG; Start 08/20/16 at 21:00 Digoxin (Digoxin) 0.25 mg DAILY@13 PO Last administered on 08/25/16 12:13; Admin Dose 0.25 MG; Start 08/20/16 at 13:00 Diltiazem HCl (Cardizem Cd) 240 mg DAILY PO Last administered on 08/26/16 08:41 ; Admin Dose 240 MG; Start 08/20/16 at 09:00 Metoprolol Tartrate (Lopressor) 25 mg BID PO Last administered on 08/26/16 08: 40; Admin Dose 25 MG; Start 08/20/16 at 09:00 Multivitamins Therapeutic (Theragran) 1 tab DAILY PO Last administered on 08:39; Admin Dose 1 TAB; Start 08/20/16 at 09:00 Salmeterol Xinafoate/ Fluticasone (Advair 250/50 Diskus) 1 inh BID INH Last administered on 08/26/16 08:39; Admin Dose 1 INH; Start 08/20/16 at 09:00 Spironolactone (Aldactone) 25 mg DAILY PO Last administered on 08/26/16 08:39; Admin Dose 25 MG; Start 08/20/16 at 09:00 Diagnostic Test (Pha) (Accu-Chek) 1 ea 02 XX Last administered on 08/23/16 03: 00; Admin Dose 1 EA; Start 08/21/16 at 02:00 Miscellaneous Information 1 ea NOTE XX ; Start 08/20/16 at 02:10 Glucose (Glutose) 15 gm Q15M PRN PO DECREASED GLUCOSE; Start 08/20/16 at 02:10 Glucose (Glutose) 22.5 gm Q15M PRN PO DECREASED GLUCOSE; Start 08/20/16 at 02:10 Dextrose (D50w Syringe) 25 ml Q15M PRN IV DECREASED GLUCOSE; Start 08/20/16 at 02:10 Dextrose (D50w Syringe) 50 ml Q15M PRN IV DECREASED GLUCOSE; Start 08/20/16 at 02:10 Glucagon (Glucagen) 1 mg Q15M PRN IM DECREASED GLUCOSE; Start 08/20/16 at 02:10 Glucose (Glutose) 15 gm Q15M PRN BUCCAL DECREASED GLUCOSE; Start 08/20/16 at 02: 10 Enoxaparin Sodium (Lovenox) 120 mg Q12 SC Last administered on 08/22/16 08:46; Admin Dose 120 MG; Start 08/20/16 at 21:00; Status Future Hold Bumetanide (Bumex) 1 mg DAILY PO Last administered on 08/26/16 08:42; Admin Dose 1 MG; Start 08/20/16 at 12:00 Montelukast Sodium (Singulair) 10 mg HS PO Last administered on 08/25/16 20:24 ; Admin Dose 10 MG; Start 08/21/16 at 21:00 Theophylline (Dorian-24) 200 mg QHS PO Last administered on 08/23/16 20:54; Admin Dose 200 MG; Start 08/21/16 at 21:00 Famotidine (Pepcid) 20 mg DAILY PO Last administered on 08/26/16 08:42; Admin Dose 20 MG; Start 08/22/16 at 17:00 Docusate Sodium (Colace) 100 mg DAILY PO Last administered on 08/26/16 08:40; Admin Dose 100 MG; Start 08/22/16 at 17:00 Lisinopril (Zestril) 2.5 mg DAILY PO Last administered on 08/26/16 08:41; Admin Dose 2.5 MG; Start 08/23/16 at 09:00 Lactobacillus Acidophilus/ Rhamnosus (Culturelle) 1 cap BID PO Last administered on 08/26/16 08:36; Admin Dose 1 CAP; Start 08/23/16 at 12:30 Levofloxacin (Levaquin) 750 mg DAILY@06 PO Last administered on 08/26/16 06:03 ; Admin Dose 750 MG; Start 08/24/16 at 13:00 Magnesium Hydroxide (Milk Of Mag) 30 ml BID PO ; Start 08/24/16 at 12:00 Bisacodyl (Dulcolax) 10 mg DAILY PO Last administered on 08/26/16 08:39; Admin Dose 10 MG; Start 08/24/16 at 12:00 Insulin Glargine (Lantus) 45 unit DAILY@20 SC Last administered on 08/25/16 20: 30; Admin Dose 45 UNIT; Start 08/24/16 at 20:00 Thiamine HCl (Vitamin B1) 100 mg DAILY PO Last administered on 08/26/16 08:41; Admin Dose 100 MG; Start 08/25/16 at 09:00 Prednisone (Prednisone) 10 mg DAILY PO Last administered on 08/26/16 08:39; Admin Dose 10 MG; Start 08/25/16 at 11:00 Assessment/Plan Chief Complaint/Hosp Course Assessment 1. Recurrent pleural effusion likely postobstructive from recent bronchoscopy findings 2. History of congestive cardiac failure diastolic dysfunction component 3. History of chronic hypoxemic respiratory failure 4. Obstructive sleep apnea 5. Morbid obesity Plan 1. Continue supplemental O2 2. Trial of steroids and antibiotics 3. Outpatient follow-up with me for possible repeat bronchoscopy at some point in future 4. Encourage ambulation and weight loss Disposition discharge home soon once patient able to ambulate safely without desaturation Problems: OSMANI LUIS MD, [facility] Aug 26, 2016 10:41
--- NOTE | 2016-08-26 10:55 | PN ---
Date/Time of Note Date/Time of Note DATE: 08/26/16 TIME: 10:53 Assessment/Plan VTE Prophylaxis VTE Prophylaxis Intervention: LMWH Lines/Catheters IV [facility]ter Type [facility]from [facility] Urinary Cath still in place: No Assessment/Plan Chief Complaint/Hosp Course S: 08/22 no events. Son updated at patient's request. 08/23 patient for Bronch, no events overnight 08/24 no events; sp Bronch 08/26 exertional dyspnea remains. She has been reinforce that her exertional dyspnea will remain due to deconditioning in addition to her multiple, comorbidities. No fever no loss of appetite. Positive BM ambulating. Cough is only yellow in expectoration. No hemoptysis, or purulent sputum. O: Vss PE No pallor/JVD Appears irreg, no m/r/g Dimin bs. No tachypnea Bs + nt nd, no R/R/G; obese No edema A/P 1. Parapneumonic effusion? stable. Rx diastolic dysfunction. Dc home. 2. Chr A fib held Lovenox; restart Eliquis; sp bronch. 3. Chr respiratory failure/home O2 status 4. Sleep apnea hypoventilation syndrome? 5. Nonadherence 6. Diastolic dysfunction? cLVH 7. Diabetes/metabolic syndrome. A1c 9.3 8. Chr COPD 9. Past tobacco use 10. Anemia 11. PAH- 55mm 12. 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 Abnormal CA 125? 14. Lt lower lobe endobronchial lesion. Pathology negative. Repeat bronc in 3 wks. Anticipate pulmonary follow-up and oncology if needed. 15. Postobstructive pneumonia. Short course of antibiotics. 16. Deconditioning, will improve with ambulation. Problems: Exam/Review of Systems Vital Signs Vitals Vital Signs Date Time Temp Pulse Resp B/P Pulse Ox O2 Delivery O2 Flow Rate FiO2 08/26/16 07:45 4.0 08/26/16 07:32 97.3 55 20 106/55 96 08/25/16 20:15 Nasal Cannula Intake and Output 08/25/16 08/25/16 08/26/16 15:00 23:00 07:00 Intake Total 1080 ml 500 ml Balance 1080 ml 500 ml Results Result Diagram: 08/25/16 0546 08/25/16 0546 Results 24 hrs Laboratory Tests Test 08/25/16 12:08 08/25/16 17:20 08/25/16 20:21 08/26/16 02:21 Bedside Glucose 285 H 304 H 308 H 230 H Test 08/26/16 08:08 Bedside Glucose 213 Medications Medications Current Medications Lorazepam (Ativan) 0.5 mg Q6H PRN IV ANXIETY; Start 08/20/16 at 01:00 Acetaminophen (Tylenol Tab) 650 mg Q6H PRN PO PAIN LEVEL 1-3 OR FEVER Last administered on 08/20/16 08:23; Admin Dose 650 MG; Start 08/20/16 at 01:00 Atorvastatin Calcium (Lipitor) 40 mg HS PO Last administered on 08/25/16 20:24 ; Admin Dose 40 MG; Start 08/20/16 at 21:00 Digoxin (Digoxin) 0.25 mg DAILY@13 PO Last administered on 08/25/16 12:13; Admin Dose 0.25 MG; Start 08/20/16 at 13:00 Diltiazem HCl (Cardizem Cd) 240 mg DAILY PO Last administered on 08/26/16 08:41 ; Admin Dose 240 MG; Start 08/20/16 at 09:00 Metoprolol Tartrate (Lopressor) 25 mg BID PO Last administered on 08/26/16 08: 40; Admin Dose 25 MG; Start 08/20/16 at 09:00 Multivitamins Therapeutic (Theragran) 1 tab DAILY PO Last administered on 08:39; Admin Dose 1 TAB; Start 08/20/16 at 09:00 Salmeterol Xinafoate/ Fluticasone (Advair 250/50 Diskus) 1 inh BID INH Last administered on 08/26/16 08:39; Admin Dose 1 INH; Start 08/20/16 at 09:00 Spironolactone (Aldactone) 25 mg DAILY PO Last administered on 08/26/16 08:39; Admin Dose 25 MG; Start 08/20/16 at 09:00 Diagnostic Test (Pha) (Accu-Chek) 1 ea 02 XX Last administered on 08/23/16 03: 00; Admin Dose 1 EA; Start 08/21/16 at 02:00 Miscellaneous Information 1 ea NOTE XX ; Start 08/20/16 at 02:10 Glucose (Glutose) 15 gm Q15M PRN PO DECREASED GLUCOSE; Start 08/20/16 at 02:10 Glucose (Glutose) 22.5 gm Q15M PRN PO DECREASED GLUCOSE; Start 08/20/16 at 02:10 Dextrose (D50w Syringe) 25 ml Q15M PRN IV DECREASED GLUCOSE; Start 08/20/16 at 02:10 Dextrose (D50w Syringe) 50 ml Q15M PRN IV DECREASED GLUCOSE; Start 08/20/16 at 02:10 Glucagon (Glucagen) 1 mg Q15M PRN IM DECREASED GLUCOSE; Start 08/20/16 at 02:10 Glucose (Glutose) 15 gm Q15M PRN BUCCAL DECREASED GLUCOSE; Start 08/20/16 at 02: 10 Enoxaparin Sodium (Lovenox) 120 mg Q12 SC Last administered on 08/22/16 08:46; Admin Dose 120 MG; Start 08/20/16 at 21:00; Status Future Hold Bumetanide (Bumex) 1 mg DAILY PO Last administered on 08/26/16 08:42; Admin Dose 1 MG; Start 08/20/16 at 12:00 Montelukast Sodium (Singulair) 10 mg HS PO Last administered on 08/25/16 20:24 ; Admin Dose 10 MG; Start 08/21/16 at 21:00 Theophylline (Dorian-24) 200 mg QHS PO Last administered on 08/23/16 20:54; Admin Dose 200 MG; Start 08/21/16 at 21:00 Famotidine (Pepcid) 20 mg DAILY PO Last administered on 08/26/16 08:42; Admin Dose 20 MG; Start 08/22/16 at 17:00 Docusate Sodium (Colace) 100 mg DAILY PO Last administered on 08/26/16 08:40; Admin Dose 100 MG; Start 08/22/16 at 17:00 Lisinopril (Zestril) 2.5 mg DAILY PO Last administered on 08/26/16 08:41; Admin Dose 2.5 MG; Start 08/23/16 at 09:00 Lactobacillus Acidophilus/ Rhamnosus (Culturelle) 1 cap BID PO Last administered on 08/26/16 08:36; Admin Dose 1 CAP; Start 08/23/16 at 12:30 Levofloxacin (Levaquin) 750 mg DAILY@06 PO Last administered on 08/26/16 06:03 ; Admin Dose 750 MG; Start 08/24/16 at 13:00 Magnesium Hydroxide (Milk Of Mag) 30 ml BID PO ; Start 08/24/16 at 12:00 Bisacodyl (Dulcolax) 10 mg DAILY PO Last administered on 08/26/16 08:39; Admin Dose 10 MG; Start 08/24/16 at 12:00 Insulin Glargine (Lantus) 45 unit DAILY@20 SC Last administered on 08/25/16 20: 30; Admin Dose 45 UNIT; Start 08/24/16 at 20:00 Thiamine HCl (Vitamin B1) 100 mg DAILY PO Last administered on 08/26/16 08:41; Admin Dose 100 MG; Start 08/25/16 at 09:00 Prednisone (Prednisone) 10 mg DAILY PO Last administered on 08/26/16 08:39; Admin Dose 10 MG; Start 08/25/16 at 11:00 ROMI RILEY MD Aug 26, 2016 10:55
[2016-08-26] MEDS: DIGOXIN 0.25 MG TAB PO SCH (12:17)
--- NOTE | 2016-08-26 14:28 | RADRPT ---
PROCEDURE: XR Chest. CLINICAL INDICATION: Pneumonia and CHF. TECHNIQUE: Chest x-ray, single view. COMPARISON: Chest x-ray 08/19/2016. CT chest 08/21/2016. FINDINGS: The heart is enlarged. Aortic arch atherosclerotic calcification is present. Opacification of the [id number] aspect of the left chest is observed and unchanged. Imaging findings reflect a combina tion of atelectasis and pleural effusion. The remainder of the lungs are clear aside from right bas ilar atelectatic changes. Degenerative changes of the spine are present. The visualized upper abdom en is unremarkable. IMPRESSION: Cardiomegaly and atherosclerosis with left basilar atelectasis and pleural effusion, unchanged. RPTAT: HLST .Jane Kamara MD, Date Time Electronically viewed and signed by .Jane Kamara MD, on 08/26/2016 14:28 .T/
[2016-08-26 18:00] VITALS: BP 108/58; PULSE 79; RESP 22
== END 2016-08-26 18:10 | disposition home or self-care (01) | DRG 264 ==
LOC: E/R 20:32 → MS2 23:41
PROVIDERS: ADMIT Family Medicine; ATTEND Family Medicine
PROC: 3E0F7GC Introduction of Other Therapeutic Substance into Respiratory Tract, Via Natural or Artificial Opening (ICD-10-PCS; 2016-08-23)
PROC: 0BBF8ZX Excision of Right Lower Lung Lobe, Via Natural or Artificial Opening Endoscopic, Diagnostic (ICD-10-PCS; principal; 2016-08-23 10:30)
DX: I11.0 Hypertensive heart disease with heart failure (principal); J96.21 Acute and chronic respiratory failure with hypoxia; J18.8 Other pneumonia, unspecified organism; J90 Pleural effusion, not elsewhere classified; I27.2 Other secondary pulmonary hypertension; E27.8 Other specified disorders of adrenal gland; E66.2 Morbid (severe) obesity with alveolar hypoventilation; Z68.41 Body mass index [BMI] 40.0-44.9, adult; I50.33 Acute on chronic diastolic (congestive) heart failure; Z79.01 Long term (current) use of anticoagulants; I48.2 Chronic atrial fibrillation; J44.9 Chronic obstructive pulmonary disease, unspecified; E11.65 Type 2 diabetes mellitus with hyperglycemia; Z99.81 Dependence on supplemental oxygen; Z87.891 Personal history of nicotine dependence; E78.00 Pure hypercholesterolemia, unspecified
CPT/HCPCS: 71010; 71260; 76604; 80048; 80053; 80162; 80202; 81003; 82565; 82962; 83036; 83605; 83735; 83880; 84100; 84484; 84520; 85025; 85610; 85730; 87040; 87086; 88104; 88305; 88309; 93005; 94664; 96365; 96368; 97116; 97162; 97530; C9113; J0692; J1650; J1815; J1940; J2370; J2405; J3370; J7030; J7040; J7050; J7512; J7999; Q9967

== ENCOUNTER 2017-05-26 21:56 | Inpatient (IN) | END 2017-06-04 17:35 | disposition home health service (06) | DRG 291 ==

== ENCOUNTER 2017-12-24 19:48 | Inpatient (IN) | END 2017-12-28 16:20 | disposition home or self-care (01) | DRG 871 ==

== ENCOUNTER 2018-01-10 22:15 | Inpatient (IN) | END 2018-01-12 17:15 | DRG 291 ==

== ENCOUNTER 2018-01-25 15:25 | Inpatient (IN) | END 2018-01-31 16:33 | DRG 291 ==

== ENCOUNTER 2018-03-24 17:13 | Inpatient (IN) | payer MEDICARE, OTHER ==
[~2018-03-24] VITALS: Ht 172.7 cm; Wt 160.0 kg
[~2018-03-24 17:13] MED LIST changes: -ADV25050 INH; +AMIO200T4 PO; +BUME1TAB PO; +DIGO125T PO; -DIGO250T6 PO; -DILT240C79 PO; -DOXY-220 PO; -FURO40TA4 PO; -IBUP-1542 PO; +Insulin Glargine SC; -Ipratropium 0.02% (Neb) HHN; -LANT3I SC; -LEVA1.2523 HHN; -LEVO500T72 PO; +METF100010 PO; +METH4TAB PO; -MULTI PO; +Methylprednisolone Dose Pack PO; -SPIR25TA PO; +TIOT18CA INHALATION
[2018-03-24] MEDS ORDERED: SODIUM CHLORIDE 0.9% 1L BAG IV* STA (17:22)
[2018-03-24] MEDS ORDERED: LEVOFLOXACIN 750MG/D5W (PMX) 150 ML IVPB STA (17:22)
[2018-03-24] MEDS ORDERED: ALBUTEROL 0.5% (NEB) 2.5 MG/0.5 ML AMP INH STA (17:22)
[2018-03-24] MEDS ORDERED: IPRATROPIUM (NEB) 0.5 MG/2.5 ML AMP NEB STA (17:22)
[2018-03-24] MEDS ORDERED: DEXAMETHASONE 10 MG/ML 1 ML INJ IV STA (17:22)
--- NOTE | 2018-03-24 17:55 | ERD ---
ER Documentation Chief Complaint Chief Complaint SOB COPD exacerbation started this morning HPI 67-year-old female with a history of COPD on 3 L of oxygen at home as well as CHF presenting by ambulance with shortness of breath that started earlier this morning and has progressively worsened throughout the day. She denies any assoc iated chest pain or URI symptoms. No hemoptysis, or phlegm production. No fevers or chills. Otherwise history is limited given the patient's respiratory distress. Of note, she was noted to be hypoxic to 70% in the field. ROS All systems reviewed and are negative except as per history of present illness. Medications Home Meds Active Scripts Methylprednisolone* (Medrol*) 4 Mg Tab, 4 MG PO AC BREAKFAST for 1 Day, TAB Prov:KELLY LANDERS NP 01/31/18 Methylprednisolone* (Medrol*) 4 Mg Tab, 4 MG PO HS for 1 Day, TAB Prov:KELLY LANDERS NP 01/31/18 Insulin Aspart* (Novolog Insulin Pen*) 100 Unit/Ml Soln, 0 UNIT SC WITH MEALS BEDTIME for 1 Day Prov:KELLY LANDERS NP 01/31/18 Insulin Aspart* (Novolog Insulin Pen*) 100 Unit/Ml Soln, 10 UNIT SC WITH MEALS for 1 Day Prov:KELLY LANDERS NP 01/31/18 Reported Medications Bumetanide* (Bumetanide*) 2 Mg Tablet, 2 MG PO DAILY 03/24/18 Linagliptin (TRADJENTA) 5 Mg Tablet, 5 MG PO QHS, TAB 03/24/18 Primidone* (Mysoline*) 50 Mg Tablet, 50 MG PO HS, TAB 03/24/18 Tiotropium Upsala* (Spiriva*) 18 Mcg Cap.w.dev, 1 CAP INHALATION DAILY, #30 CAP 01/10/18 Bumetanide* (Bumetanide*) 1 Mg Tablet, 1 MG PO DAILY, TAB 01/10/18 Metformin Hcl* (Metformin Hcl*) 1,000 Mg Tablet, 1000 MG PO WITH BREAKFAST DINNE, #60 TAB 01/10/18 Atorvastatin* (Atorvastatin*) 40 Mg Tablet, 40 MG PO QHS, #30 TAB 01/10/18 Digoxin* (Digitek*) 125 Mcg Tablet, 0.125 MG PO DAILY, TAB 01/10/18 Apixaban* (Eliquis*) 5 Mg Tablet, 5 MG PO BID, TAB 01/10/18 Metoprolol Tartrate* (Lopressor*) 25 Mg Tab, 25 MG PO BID, #60 TAB 01/10/18 Amiodarone Hcl* (Amiodarone Hcl*) 200 Mg Tablet, 200 MG PO DAILY, #30 TAB 01/10/18 Discontinued Scripts [Methylprednisolone Dose Pack] 1 EA EACH No Conflict Check, 0 EA PO .STD DOSE PACK, #1 Prov:KELLY LANDERS [employer] 01/31/18 [Insulin Glargine] 100 UNITS/ML SOLN No Conflict Check, 36 UNITS SC DAILY@1999 for 1 Day Prov:KELLY LANDERS [employer] 01/31/18 Allergies Allergies: Coded Allergies: No Known Allergies (Unverified Allergy, Unknown, 03/24/18) PMhx/Soc History of Surgery: Yes (hernia repair, hysterectomy, ovary removed, kidney cysts removal, ) Anesthesia Reaction: No Hx 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 Disorder: No Hx Respiratory Disorders: Yes (COPD) Hx Cardiac Disorders: Yes (CHF) Hx Psychiatric Problems: No Hx Miscellaneous Medical Probl: Yes (CHF, COPD, Obesity, DM) Hx Alcohol Use: No Hx Substance Use: No Hx Tobacco Use: No FmHx Family History: No diabetes Physical Exam Vitals Vital Signs Date Temp Pulse Resp B/P (MAP) Pulse Ox O2 O2 Flow FiO2 Time Delivery Rate 03/24/18 105 24 124/83 100 BIPAP 19:00 (97) 03/24/18 107 93 60 18:55 03/24/18 99.1 118 28 109/65 85 High Flow 18:30 (80) 03/24/18 77 60 17:34 03/24/18 40 77 Nasal 4.0 17:34 Cannula 03/24/18 98.1 109 22 102/74 77 17:18 (83) Physical Exam Const: In respiratory distress but nontoxic. Obese Head: Atraumatic Eyes: Normal Conjunctiva ENT: Normal External Ears, Nose and Mouth. Neck: Full range of motion. No meningismus. Resp: Tachypneic. Severely diminished breath sounds bilaterally with very poor air movement. Cardio: Tachycardic with irregular rhythm, no murmurs Abd: Soft, non tender, non distended. Normal bowel sounds Skin: No petechiae or rashes Back: No midline or flank tenderness Ext: No cyanosis, trace bilateral lower extremity edema Neur: Awake and alert, mentating normally, moving all extremities Psych: Normal Mood and Affect Result Diagram: 03/26/18 0456 03/26/18 0456 Results 24 hrs Laboratory Tests Test 03/24/18 17:22 03/24/18 17:30 03/24/18 17:40 Blood Gas Specimen Source Blood venous Arterial Blood Date Drawn 03/24/2018 5:50:10 PM Arterial Blood Gas VENOUS LINE Puncture Site Joseph Test N/A Venous Blood pH 7.303 Venous Blood pCO2 83.1 mmHG (Temp Corrected) Venous Blood pO2 21.8 mmHG (Temp Corrected) Venous Blood HCO3 40.2 mmol/L Venous Blood Oxygen 34.4 mmHG Saturation Venous Blood Base Excess 10.6 mmol/L Venous Blood Total Hemoglobin 12.7 g/dl Venous Blood Oxyhemoglobin 33.9 % Venous Blood Methemoglobin 0.2 % Carboxyhemoglobin 1.2 % Blood Gas Temperature 37.0 C Blood Gas Actual 35 Respiration Rate Blood Gas Modality HFNC FiO2 50.0 % Blood Gas Notified Whom JONN MILLER Blood Gas Notified Time 03/24/2018 6:13:47 PM White Blood Count 12.2 10^3/ul Red Blood Count 4.13 10^6/ul Hemoglobin 12.0 g/dl Hematocrit 40.8 % Mean Corpuscular Volume 98.8 fl Mean Corpuscular Hemoglobin 29.1 pg Mean Corpuscular 29.4 g/dl Hemoglobin Concent Red Cell Distribution Width 17.3 % Platelet Count 241 10^3/UL Mean Platelet Volume 10.1 fl Immature Granulocytes % 0.700 % Neutrophils % 80.1 % Lymphocytes % 10.9 % Monocytes % 6.8 % Eosinophils % 1.3 % Basophils % 0.2 % Nucleated Red Blood Cells % 0.0 /100WBC Immature Granulocytes # 0.080 10^3/ul Neutrophils # 9.8 10^3/ul Lymphocytes # 1.3 10^3/ul Monocytes # 0.8 10^3/ul Eosinophils # 0.2 10^3/ul Basophils # 0.0 10^3/ul Nucleated Red Blood Cells # 0.0 10^3/ul Prothrombin Time 13.7 Sec Prothrombin Time Ratio 1.1 INR International 1.04 Normalized Ratio Activated 35.2 Sec Partial Thromboplast Time Sodium Level 137 mmol/L Potassium Level 4.7 mmol/L Chloride Level 87 mmol/L Carbon Dioxide Level 38 mmol/L Anion Gap 12 Blood Urea Nitrogen 22 mg/dl Creatinine 0.79 mg/dl Est Glomerular Filtrat > 60 mL/min Rate mL/min Glucose Level 155 mg/dl Calcium Level 9.1 mg/dl Troponin I < 0.012 ng/ml POC Venous Lactate 2.5 mmol/L Current Medications Medications Dose Sig/Westley Start Time Status Last (Trade) Ordered Route PRN Stop Time Admin Dose Reason Admin Sodium 1,920 ml BOLUS OVER 2 03/24/18 DC 03/24/18 Chloride HOURS STAT 17:22 03/24/18 17:55 (NS) IV* 17:26 150 ml @ ONCE STAT 03/24/18 DC 03/24/18 Levofloxacin/ 100 mls/hr IVPB 17:22 03/24/18 17:56 Dextrose 18:51 Ipratropium 1.5 mg ONCE STAT 03/24/18 DC 03/24/18 Upsala NEB 17:22 03/24/18 17:45 (Atrovent 17:26 0.02% (Neb)) Albuterol 15 mg ONCE STAT 03/24/18 DC 03/24/18 (Proventil INH 17:22 03/24/18 17:45 0.5% (Neb)) 17:26 10 mg ONCE STAT 03/24/18 DC 03/24/18 Dexamethasone IV 17:22 03/24/18 17:55 (Decadron) 17:26 Lorazepam 0.5 mg ONCE ONCE 03/24/18 DC 03/24/18 (Ativan) IV 19:00 03/24/18 18:44 19:01 Procedures/MDM EMERGENT LABS AND DIAGNOSTIC STUDIES: Lab Results above were reviewed and interpreted by me. CBC: Leukocytosis, likely stress response versus infection. No evidence of s evere anemia, thrombocytopenia, thrombocytosis BMP: Increased CO2, likely secondary to retention. No evidence of electrolyte abnormality, renal failure, hypoglycemia Troponin within normal limits, not indicative of cardiac ischemia Lactate increased, consistent with tissue hypoperfusion and possibly severe sepsis 12-lead EKG was interpreted by Eddie Singh MD: Atrial fibrillation with RVR at 107 bpm Right bundle branch block Diffuse T wave inversions A. fib with RVR, no acute STEMI. Radiology Results as interpreted by Radiology below were reviewed by Bushra Singh MD: Chest x-ray: Possible left lower lobe pneumonia Initial Nursing notes reviewed. Previous Medical Records requested via the Electronic Health Record. EMERGENCY DEPARTMENT COURSE / MEDICAL DECISION MAKING: Patient is presenting with acute on chronic respiratory failure with severe hypoxia on room air. Her oxygen saturations were improving with supplemental oxygen but only up to the 80s. Her ABG showed evidence of respiratory acidosis with hypercapnia. Initially the patient was very much against using BiPAP. However after extensive discussion about the critical condition she is in, the patient finally agreed to BiPAP with assistance of Ativan for anxiety. She seemed to tolerate the BiPAP well. Repeat ABG did not show much improvement so we increased the pressures on the BiPAP. She was noted to have pneumonia on chest x-ray and was treated with broad-spectrum IV antibiotics. I have a lower suspicion for acute coronary syndrome or CHF exacerbation at this time. She was noted to have A. fib with RVR but this is likely secondary to a response to her condition and was not directly treated with beta-blockers or calcium channel blockers. Patient's infectious symptoms have not stabilized and the patient is at risk of rapid decompensation. The patient will be admitted for careful hydration, antibiotic therapy, and infectious source control. Severe Sepsis Assessment: Infectious Source: Community-acquired pneumonia End organ damage indicated by: Lactate > 2.0 mmol/L Acute Resp Failure (sat < 92% w/o oxygen) Severe Sepsis Managment: Blood Cultures X 2 before broad spectrum antibiotics initiated within 3 hours of recognition. 30 ml/kg NS bolus Completed Initial Lactate: 2.5 Repeat Lactate normal Critical Care: Time: 50 minutes Treatments/Evaluations: Emergent fluid management, while maintaining close respiratory support. Immediate broad spectrum antibiotic therapy. Simultaneous assessment for possible sources in order to direct therapy. Consideration for invasive and chemical support to prevent respiratory or cardiac collapse. Septic Shock Assessment (1 hour post 30 ml/kg fluid bolus): Hypotension (SBP < 90 or 40 mmHg drop, MAP < 65): No Lactic acid > 4.0 No Accepting Care Team: Current data and ongoing care discussed. Time: Time of admission Primary Provider: Dr. Carey Departure Diagnosis: Primary Impression: Acute on chronic respiratory failure with hypoxia and hypercapnia Additional Impressions: COPD with exacerbation Severe sepsis Community acquired pneumonia Laterality: unspecified laterality Qualified Codes: J18.9 - Pneumonia, unspecified organism Condition: Critical CASSI SINGH MD Mar 24, 2018 17:55
[2018-03-24] MEDS ORDERED: PRIM50TA38 PO (17:59)
[2018-03-24] MEDS ORDERED: BUME2TAB2 PO (18:00)
[2018-03-24] MEDS ORDERED: LINA5TAB PO (18:00)
[2018-03-24] MEDS ORDERED: LORAZEPAM 2 MG INJ IV ONE ×2 (19:00→21:00)
--- NOTE | 2018-03-24 19:55 | HP ---
Date/Time of Note Date/Time of Note DATE: 03/24/18 TIME: 19:55 Assessment/Plan VTE Prophylaxis Pharmacological prophylaxis: heparin Lines/Catheters IV Catheter Type (from Nrsg): Saline Lock Assessment/Plan Assessment/Plan 67-year-old female patient with comorbidities including COPD on home oxygen, diastolic heart failure, atrial fibrillation on Eliquis, diabetes mellitus type II, hypertension, pulmonary hypertension and dyslipidemia presented with short ness of breath and found with hypercapnic/hypoxic respiratory failure, likely combination of COPD exacerbation, A-fib with RVR, acute on chronic diastolic CHF and pneumonia 1. Hypoxic and hypercapnic respiratory failure -Supplemental oxygen, bronchodilators, inhaled and IV corticosteroids, IV antibiotic -Patient has been refusing ABG like she always does on her previous hospitalizations. Will check VBG -PRN BiPAP 2. Atrial fibrillation with RVR: Currently rate controlled -Continue home meds including, amiodarone, digoxin and Eliquis 3. COPD exacerbation: Patient on home oxygen -See #1 4. Acute on chronic diastolic CHF See #1 5. Type 2 diabetes with hyperglycemia -Continue metformin. Add insulin while in-house 6. Hypertension: BP within goal. Continue home meds 7. Dyslipidemia: Continue statin 8. Morbid obesity with a BMI of 53 -Weight reduction has been advised Result Diagram: 03/24/18 1730 03/24/18 1730 Results 24hrs Laboratory Tests Test 03/24/18 17:22 03/24/18 17:30 03/24/18 17:40 Blood Gas Specimen Source Blood venous Arterial Blood Date Drawn 03/24/2018 5:50:10 PM Arterial Blood Gas VENOUS LINE Puncture Site Joseph Test N/A Venous Blood pH 7.303 L Venous Blood pCO2 83.1 *H (Temp Corrected) Venous Blood pO2 21.8 L (Temp Corrected) Venous Blood HCO3 40.2 H Venous Blood Oxygen Saturation 34.4 L Venous Blood Base Excess 10.6 H Venous Blood Total Hemoglobin 12.7 Venous Blood Oxyhemoglobin 33.9 Venous Blood Methemoglobin 0.2 Carboxyhemoglobin 1.2 Blood Gas Temperature 37.0 Blood Gas Actual 35 Respiration Rate Blood Gas Modality HFNC FiO2 50.0 Blood Gas Notified Whom JONN MILLER Blood Gas Notified Time 03/24/2018 6:13:47 PM White Blood Count 12.2 #H Red Blood Count 4.13 L Hemoglobin 12.0 Hematocrit 40.8 Mean Corpuscular Volume 98.8 Mean Corpuscular Hemoglobin 29.1 Mean Corpuscular 29.4 L Hemoglobin Concent Red Cell Distribution Width 17.3 H Platelet Count 241 # Mean Platelet Volume 10.1 Immature Granulocytes % 0.700 H Neutrophils % 80.1 H Lymphocytes % 10.9 L Monocytes % 6.8 Eosinophils % 1.3 Basophils % 0.2 Nucleated Red Blood Cells % 0.0 Immature Granulocytes # 0.080 H Neutrophils # 9.8 H Lymphocytes # 1.3 Monocytes # 0.8 Eosinophils # 0.2 Basophils # 0.0 Nucleated Red Blood Cells # 0.0 Prothrombin Time 13.7 Prothrombin Time Ratio 1.1 INR International 1.04 Normalized Ratio Activated Partial Thromboplast 35.2 H Time Sodium Level 137 Potassium Level 4.7 Chloride Level 87 L Carbon Dioxide Level 38 H Anion Gap 12 Blood Urea Nitrogen 22 H Creatinine 0.79 Est Glomerular Filtrat > 60 Rate mL/min Glucose Level 155 Calcium Level 9.1 Troponin I < 0.012 POC Venous Lactate 2.5 *H HPI/ROS Admit Date/Time Admit Date/Time Hx of Present Illness Patient is a 67-year-old morbidly obese female patient with history of COPD on home oxygen, diastolic heart failure, atrial fibrillation on Eliquis, diabetes mellitus type II, hypertension, pulmonary hypertension, and dyslipidemia who presented to ER with worsening shortness of breath. When presented to ER, she was hypoxic. VBG showing hypercapnia and hypoxia. Chest x-ray shows left basilar opacification which may represent pneumonia and possible mild congestive failure. She has been placed on BiPAP. PMH/Family/Social Past Medical History Medications Current Medications Ondansetron HCl (Zofran Inj) 4 mg Q6H PRN IV NAUSEA AND/OR VOMITING; Start 03/24/18 at 20:00; Status UNV Albuterol/ Ipratropium (Duoneb) 3 ml Q2H RESP THERAPY PRN NEB SHORTNESS OF BREATH; Start 03/24/18 at 20:00; Status UNV Heparin Sodium (Porcine) (Heparin (5000 Units/1ml)) 5,000 unit Q12 SC ; Start 03/24/18 at 21:00; Status UNV Amiodarone HCl (Cordarone) 200 mg DAILY PO ; Start 03/24/18 at 20:00; Status UNV Apixaban (Eliquis) 5 mg BID PO ; Start 03/24/18 at 21:00; Status UNV Atorvastatin Calcium (Lipitor) 40 mg QHS PO ; Start 03/24/18 at 21:00; Status UNV Bumetanide (Bumex) 1 mg DAILY PO ; Start 03/25/18 at 09:00; Status UNV Digoxin (Digoxin) 0.125 mg DAILY PO ; Start 03/25/18 at 09:00; Status UNV Linagliptin (Tradjenta) 5 mg QHS PO ; Start 03/24/18 at 21:00; Status UNV Primidone (Mysoline) 50 mg HS PO ; Start 03/24/18 at 21:00; Status UNV Tiotropium [place] (Spiriva) 1 inh DAILY INH ; Start 03/25/18 at 09:00; Status UNV Miscellaneous Information 2 mg DAILY PO ; Start 03/25/18 at 09:00; Status UNV Coded Allergies: No Known Allergies (Unverified Allergy, Unknown, 03/24/18) Family History Significant Family History: no pertinent family hx Social History Smoking Status: Former smoker Exam/Review of Systems Vital Signs Vitals Vital Signs Date Temp Pulse Resp B/P (MAP) Pulse Ox O2 O2 Flow FiO2 Time Delivery Rate 03/24/18 107 93 60 18:55 03/24/18 99.1 28 109/65 High Flow 18:30 (80) 03/24/18 4.0 17:34 Exam Exam Constitutional: other (no acute distress) Head: normocephalic Respiratory: other (slight decreased at bases) Cardiovascular: regular rate and rhythm Gastrointestinal: soft Extremities: normal pulses PMH/Family/Social Past Medical History Medical History: other (see hpi) Coded Allergies: No Known Drug Allergy (Verified Allergy, Unknown, 11/05/15) Past Surgical History Past Surgical Hx: other (see hpi) Family History Significant Family History: no pertinent family hx Social History Alcohol Use: other Smoking Status: Unknown if ever smoked Drug Use: other DWAYNE CARTER MD Mar 24, 2018 19:55
[2018-03-24] MEDS ORDERED: ALBUTEROL/IPRATROPIUM (NEB) 3 ML AMP NEB PRN (20:00)
[2018-03-24] MEDS ORDERED: ONDANSETRON 4 MG INJ IV PRN (20:00)
[2018-03-24] MEDS: AMIODARONE 200 MG TAB PO SCH (20:51)
[2018-03-24] MEDS ORDERED: HEPARIN 5,000 UNIT/1 ML VIAL SC SCH (21:00)
[2018-03-24 23:00] VITALS: BP 142/109; PULSE 103; RESP 25
[2018-03-24] MEDS: PRIMIDONE 50 MG TAB PO SCH (23:08)
[2018-03-24] MEDS: APIXABAN 5 MG TABLET PO SCH (23:08)
[2018-03-24] MEDS: LINAGLIPTIN 5 MG TABLET PO SCH (23:08)
[2018-03-24] MEDS: ATORVASTATIN 40 MG TAB PO SCH (23:08)
[2018-03-24 23:20] VITALS: PULSE 103
[2018-03-25] VITALS (23 sets, daily range): BP systolic 98–130; BP diastolic 64–90; PULSE 82–111; RESP 16–26
[2018-03-25] MEDS ORDERED: BUMETANIDE 1 MG TAB PO SCH (06:00)
[2018-03-25] MEDS ORDERED: NON-FORMULARY/PATIENT OWN MED (Bumetanide* 2 MG) PO SCH (09:00)
[2018-03-25] MEDS: AMIODARONE 200 MG TAB PO SCH (09:37)
[2018-03-25] MEDS: TIOTROPIUM 18 MCG CAPSULE INHA DEV INH SCH (09:37)
[2018-03-25] MEDS: APIXABAN 5 MG TABLET PO SCH ×2 (09:37→20:10)
--- NOTE | 2018-03-25 09:56 | PN ---
Date/Time of Note Date/Time of Note DATE: 03/25/18 TIME: 09:49 Assessment/Plan VTE Prophylaxis SCD applied (from Nsg): No SCD contraindicated: other Pharmacological prophylaxis: apixaban Lines/Catheters IV Catheter Type (from Nrsg): Peripheral IV Urinary Cath still in place: Yes Reason Cath still needed: urinary retention Assessment/Plan Hospital Course S: Patient heart rate improved. Apparently refused BiPAP last night. Still having cough and some shortness of breath. Seen by pulmonary team earlier this morning. O: VS - see below PE: Gen: Lying in bed, no acute distress Head: Atraumatic Eyes: Normal Conjunctiva ENT: Normal External Ears, Nose and Mouth. Neck: Full range of motion. No meningismus. Resp: Clear to auscultation bilaterally Cardio: Regular rate and rhythm, no murmurs Abd: Soft, non tender, non distended. Normal bowel sounds Ext: No lower extremty edema bilaterally Neur: No focal deficits Assessment/Plan: 67-year-old female patient with comorbidities including COPD on home oxygen, diastolic heart failure, atrial fibrillation on Eliquis, diabetes mellitus type II, hypertension, pulmonary hypertension and dyslipidemia presented with shortness of breath and found with hypercapnic/hypoxic respi ratory failure, likely combination of COPD exacerbation, A-fib with RVR, acute on chronic diastolic CHF and pneumonia 1. Hypoxic and hypercapnic respiratory failure: Patient has had prior admissions for similar symptoms in the past. Again she apparently refused BiPAP last night. Presently on high flow oxygen with adequate saturations. -For now continue supplemental oxygen, bronchodilators, inhaled and IV corticosteroids, consider IV antibiotic? -Patient will also be on IV diuretic -Of note, patient has been refusing ABG like she always does on her previous hospitalizations. -PRN BiPAP, per discussion with pulmonary team 2. Atrial fibrillation with RVR: Currently rate controlled. -For now continue home meds including, amiodarone, digoxin and Eliquis -We will also get PT and OT consults 3. COPD exacerbation: Of note ,patient on home oxygen -See #1 4. Acute on chronic diastolic CHF See #1 5. Type 2 diabetes with hyperglycemia. A1c is 7.7. -For now continue Tradjenta, insulin sliding scale, monitor sugars 6. Hypertension: BP within goal. - Continue home meds 7. Dyslipidemia: Continue statin 8. Morbid obesity with a BMI of 53 -Weight reduction has been advised Critical care time spent on patient care today equals 45 minutes. Result Diagram: 03/25/18 0300 03/25/18 0300 Results 24hrs Laboratory Tests Test 03/24/18 17:22 03/24/18 17:30 03/24/18 17:40 03/24/18 20:00 Blood Gas Blood venous Blood venous Specimen Source Arterial Blood 03/24/2018 5:50:10 03/24/2018 8:00:51 Date Drawn PM PM Arterial Blood VENOUS LINE VENOUS LINE Gas Puncture Site Joseph Test N/A N/A Venous Blood pH 7.303 L 7.307 L Venous Blood 83.1 *H 87.7 *H pCO2 (Temp Corrected) Venous Blood pO2 21.8 L 34.0 H (Temp Corrected) Venous Blood 40.2 H 42.9 H HCO3 Venous Blood 34.4 L 60.9 Oxygen Saturation Venous Blood 10.6 H 12.9 H Base Excess Venous Blood 12.7 12.6 Total Hemoglobin Venous Blood 33.9 59.7 Oxyhemoglobin Venous Blood 0.2 0.1 Methemoglobin Carboxyhemoglobi 1.2 1.8 n Blood Gas 37.0 37.0 Temperature Blood Gas Actual 35 22 Respiration Rate Blood Gas HFNC MASK - BIPAP Modality FiO2 50.0 60.0 Blood Gas JONN RT KM Notified Whom Blood Gas 03/24/2018 6:13:47 03/24/2018 8:22:07 Notified Time PM PM White Blood 12.2 #H Count Red Blood Count 4.13 L Hemoglobin 12.0 Hematocrit 40.8 Mean Corpuscular 98.8 Volume Mean Corpuscular 29.1 Hemoglobin Mean Corpuscular 29.4 L Hemoglobin Francisca nt Red Cell 17.3 H Distribution Width Platelet Count 241 # Mean Platelet 10.1 Volume Immature 0.700 H Granulocytes % Neutrophils % 80.1 H Lymphocytes % 10.9 L Monocytes % 6.8 Eosinophils % 1.3 Basophils % 0.2 Nucleated Red 0.0 Blood Cells % Immature 0.080 H Granulocytes # Neutrophils # 9.8 H Lymphocytes # 1.3 Monocytes # 0.8 Eosinophils # 0.2 Basophils # 0.0 Nucleated Red 0.0 Blood Cells # Prothrombin Time 13.7 Prothrombin Time 1.1 Ratio INR 1.04 International Normalized Ratio Activated 35.2 H Partial Thrombop last Time Sodium Level 137 Potassium Level 4.7 Chloride Level 87 L Carbon Dioxide 38 H Level Anion Gap 12 Blood Urea 22 H Nitrogen Creatinine 0.79 Est Glomerular > 60 Filtrat Rate mL/min Glucose Level 155 Calcium Level 9.1 Troponin I < 0.012 POC Venous 2.5 *H Lactate Blood Gas 18.0 Respiration Rate Blood Gas 12 Pressure Support Blood Gas 04/09 IPAP/EPAP Ratio Test 03/24/18 20:11 03/24/18 22:10 03/24/18 23:02 03/25/18 02:00 POC Venous 1.5 Lactate Lactic Acid 1.8 Level Bedside Glucose 188 Blood Gas Blood venous Specimen Source Arterial Blood 03/25/2018 3:03:55 Date Drawn AM Arterial Blood VENOUS LINE Gas Puncture Site Joseph Test N/A Venous Blood pH 7.297 L Venous Blood 84.9 *H pCO2 (Temp Corrected) Venous Blood pO2 60.5 H (Temp Corrected) Venous Blood 40.6 H HCO3 Venous Blood 88.1 H Oxygen Saturation Venous Blood 10.6 H Base Excess Venous Blood 13.2 Total Hemoglobin Venous Blood 87.0 Oxyhemoglobin Venous Blood 0.2 Methemoglobin Blood Gas A-a O2 567.6 Differential Carboxyhemoglobi 1.0 n Blood Gas 37.0 Temperature Blood Gas Actual 23 Respiration Rate Blood Gas HFNC Modality FiO2 100.0 Blood Gas TING SILVA Notified Whom Blood Gas 03/25/2018 3:16:38 Notified Time AM Test 03/25/18 03:00 White Blood 10.4 Count Red Blood Count 4.06 L Hemoglobin 12.0 Hematocrit 39.4 Mean Corpuscular 97.0 Volume Mean Corpuscular 29.6 Hemoglobin Mean Corpuscular 30.5 L Hemoglobin Francisca nt Red Cell 17.1 H Distribution Width Platelet Count 215 Mean Platelet 10.4 Volume Immature 1.400 H Granulocytes % Neutrophils % Segmented 87 H Neutrophils % (Manual) Band Neutrophils 5 H % (Manual) Lymphocytes % Lymphocytes % 7 L (Manual) Monocytes % Monocytes % 1 (Manual) Eosinophils % Basophils % Nucleated Red 0.0 Blood Cells % Immature 0.150 H Granulocytes # Neutrophils # Neutrophils # 9.1 H (Manual) Band Neutrophils 0.5 # Lymphocytes 0.7 L (Manual) Lymphocytes # Monocytes # Monocytes # 0.1 L (Manual) Eosinophils # Basophils # Nucleated Red Blood Cells # Platelet NORMAL Estimate Polychromasia 3+ Poikilocytosis 1+ Anisocytosis 2+ Microcytosis 1+ Sodium Level 137 Potassium Level 5.0 Chloride Level 89 L Carbon Dioxide 40 H Level Anion Gap 8 Blood Urea 21 H Nitrogen Creatinine 0.79 Est Glomerular > 60 Filtrat Rate mL/min Glucose Level 206 Hemoglobin A1c 7.7 H Calcium Level 8.8 Total Bilirubin 0.5 Direct Bilirubin 0.00 Indirect 0.5 Bilirubin Aspartate Amino 38 Transf (AST/SGOT ) Alanine 43 Aminotransferase (ALT/SGPT) Alkaline 158 H Phosphatase Total Protein 7.3 Albumin 3.9 Globulin 3.40 H Albumin/Globulin 1.14 Ratio Exam/Review of Systems Vital Signs Vitals Vital Signs Date Temp Pulse Resp B/P (MAP) Pulse Ox O2 O2 Flow FiO2 Time Delivery Rate 03/25/18 96 23 98/81 (87) 94 High Flow 06:00 03/25/18 100 05:35 03/25/18 98.6 04:00 03/24/18 4.0 17:34 Intake and Output 03/24/18 03/24/18 03/25/18 1515:00 23:00 07:00 IntakeIntake Total 350 ml OutputOutput Total 1075 ml BalanceBalance -725 ml Medications Medications Current Medications Ondansetron HCl (Zofran Inj) 4 mg Q6H PRN IV NAUSEA AND/OR VOMITING; Start 03/24/18 at 20:00 Albuterol/ Ipratropium (Duoneb) 3 ml Q2H RESP THERAPY PRN NEB SHORTNESS OF BREATH Last administered on 03/24/18at 21:18; Admin Dose 3 ML; Start 03/24/18 at 20:00 Amiodarone HCl (Cordarone) 200 mg DAILY PO Last administered on 03/25/18at 09:37; Admin Dose 200 MG; Start 03/24/18 at 20:00 Apixaban (Eliquis) 5 mg BID PO Last administered on 03/25/18at 09:37; Admin Dose 5 MG; Start 03/24/18 at 21:00 Atorvastatin Calcium (Lipitor) 40 mg QHS PO Last administered on 03/24/18at 23:0 8; Admin Dose 40 MG; Start 03/24/18 at 21:00 Bumetanide (Bumex) 1 mg DAILY@0600 PO Last administered on 03/25/18at 05:41; Admin Dose 1 MG; Start 03/25/18 at 06:00 Digoxin (Digoxin) 0.125 mg DAILY@1300 PO ; Start 03/25/18 at 13:00 Linagliptin (Tradjenta) 5 mg QHS PO Last administered on 03/24/18at 23:08; Admin Dose 5 MG; Start 03/24/18 at 21:00 Primidone (Mysoline) 50 mg HS PO ; Start 03/24/18 at 21:00 Tiotropium [place] (Spiriva) 1 inh DAILY INH Last administered on 03/25/18at 09:37; Admin Dose 1 INH; Start 03/25/18 at 09:00 Miscellaneous Information (* Miscellaneous Pharmacy Order) Discontinue current oral sulfonylur... ONCE ONCE XX ; Start 03/25/18 at 10:00; Stop 03/25/18 at 10:01; Status UNV Diagnostic Test (Pha) (Accu-Chek) 1 XX ; Start 03/26/18 at 02:00; Status UNV Miscellaneous Information (* Miscellaneous Pharmacy Order) HYPOGLYCEMIA PROTOCOL w... ONCE ONCE XX ; Start 03/25/18 at 10:00; Stop 03/25/18 at 10:01; Status UNV Insulin Aspart (Novolog Insulin Pen) NOVOLOG *MILD* ALGORITHM WITH MEALS BEDTIME SC ; Start 03/25/18 at 11:30; Status UNV Miscellaneous Information (* Miscellaneous Pharmacy Order) Discontinue all previ... ONCE ONCE XX ; Start 03/25/18 at 10:00; Stop 03/25/18 at 10:01; Status UNV TAMEKA JEFFERSON Mar 25, 2018 09:56
--- NOTE | 2018-03-25 09:59 | CONS ---
Date/Time of Note Date/Time of Note DATE: 03/25/18 TIME: 09:50 Assessment/Plan Assessment/Plan Assessment/Plan IMP: 1. Acute on chronic hypercapnic and hypoxemic respiratory failure--in a patient with h/o HFpEF, OHS/MICHAEL, COPD and cor pulmonale. Likely represents a combination of ADHF and possible LLL pneumonia, although cannot exclude a PE. 2. HFpEF 3. COPD 4. OHS/MICHAEL 5. HTN 6. DM 7. Morbid Obesity RECS: 1. Titrate oxygen to Sp02 88-92% 2. Continue BD's 3. Bumex 1 mg IV Q12 4. Rate control 5. Abx--okay with levaquin for now 6. BD x 2; resp GS/Cx 7. BNP; D-Dimer 8. LE venous doppler 9. Nocturnal BiPAP 10. Am CXR/ABG/labs 11. DVT prophylaxis Result Diagram: 03/25/18 0300 03/25/18 0300 Results 24hrs Laboratory Tests Test 03/24/18 17:22 03/24/18 17:30 03/24/18 17:40 03/24/18 20:00 Blood Gas Blood venous Blood venous Specimen Source Arterial Blood 03/24/2018 5:50:10 03/24/2018 8:00:51 Date Drawn PM PM Arterial Blood VENOUS LINE VENOUS LINE Gas Puncture Site Joseph Test N/A N/A Venous Blood pH 7.303 L 7.307 L Venous Blood 83.1 *H 87.7 *H pCO2 (Temp Corrected) Venous Blood pO2 21.8 L 34.0 H (Temp Corrected) Venous Blood 40.2 H 42.9 H HCO3 Venous Blood 34.4 L 60.9 Oxygen Saturation Venous Blood 10.6 H 12.9 H Base Excess Venous Blood 12.7 12.6 Total Hemoglobin Venous Blood 33.9 59.7 Oxyhemoglobin Venous Blood 0.2 0.1 Methemoglobin Carboxyhemoglobi 1.2 1.8 n Blood Gas 37.0 37.0 Temperature Blood Gas Actual 35 22 Respiration Rate Blood Gas HFNC MASK - BIPAP Modality FiO2 50.0 60.0 Blood Gas JONN RT KM Notified Whom Blood Gas 03/24/2018 6:13:47 03/24/2018 8:22:07 Notified Time PM PM White Blood 12.2 #H Count Red Blood Count 4.13 L Hemoglobin 12.0 Hematocrit 40.8 Mean Corpuscular 98.8 Volume Mean Corpuscular 29.1 Hemoglobin Mean Corpuscular 29.4 L Hemoglobin Francisca nt Red Cell 17.3 H Distribution Width Platelet Count 241 # Mean Platelet 10.1 Volume Immature 0.700 H Granulocytes % Neutrophils % 80.1 H Lymphocytes % 10.9 L Monocytes % 6.8 Eosinophils % 1.3 Basophils % 0.2 Nucleated Red 0.0 Blood Cells % Immature 0.080 H Granulocytes # Neutrophils # 9.8 H Lymphocytes # 1.3 Monocytes # 0.8 Eosinophils # 0.2 Basophils # 0.0 Nucleated Red 0.0 Blood Cells # Prothrombin Time 13.7 Prothrombin Time 1.1 Ratio INR 1.04 International Normalized Ratio Activated 35.2 H Partial Thrombop last Time Sodium Level 137 Potassium Level 4.7 Chloride Level 87 L Carbon Dioxide 38 H Level Anion Gap 12 Blood Urea 22 H Nitrogen Creatinine 0.79 Est Glomerular > 60 Filtrat Rate mL/min Glucose Level 155 Calcium Level 9.1 Troponin I < 0.012 POC Venous 2.5 *H Lactate Blood Gas 18.0 Respiration Rate Blood Gas 12 Pressure Support Blood Gas 04/09 IPAP/EPAP Ratio Test 03/24/18 20:11 03/24/18 22:10 03/24/18 23:02 03/25/18 02:00 POC Venous 1.5 Lactate Lactic Acid 1.8 Level Bedside Glucose 188 Blood Gas Blood venous Specimen Source Arterial Blood 03/25/2018 3:03:55 Date Drawn AM Arterial Blood VENOUS LINE Gas Puncture Site Joseph Test N/A Venous Blood pH 7.297 L Venous Blood 84.9 *H pCO2 (Temp Corrected) Venous Blood pO2 60.5 H (Temp Corrected) Venous Blood 40.6 H HCO3 Venous Blood 88.1 H Oxygen Saturation Venous Blood 10.6 H Base Excess Venous Blood 13.2 Total Hemoglobin Venous Blood 87.0 Oxyhemoglobin Venous Blood 0.2 Methemoglobin Blood Gas A-a O2 567.6 Differential Carboxyhemoglobi 1.0 n Blood Gas 37.0 Temperature Blood Gas Actual 23 Respiration Rate Blood Gas HFNC Modality FiO2 100.0 Blood Gas TING SILVA Notified Whom Blood Gas 03/25/2018 3:16:38 Notified Time AM Test 03/25/18 03:00 White Blood 10.4 Count Red Blood Count 4.06 L Hemoglobin 12.0 Hematocrit 39.4 Mean Corpuscular 97.0 Volume Mean Corpuscular 29.6 Hemoglobin Mean Corpuscular 30.5 L Hemoglobin Francisca nt Red Cell 17.1 H Distribution Width Platelet Count 215 Mean Platelet 10.4 Volume Immature 1.400 H Granulocytes % Neutrophils % Segmented 87 H Neutrophils % (Manual) Band Neutrophils 5 H % (Manual) Lymphocytes % Lymphocytes % 7 L (Manual) Monocytes % Monocytes % 1 (Manual) Eosinophils % Basophils % Nucleated Red 0.0 Blood Cells % Immature 0.150 H Granulocytes # Neutrophils # Neutrophils # 9.1 H (Manual) Band Neutrophils 0.5 # Lymphocytes 0.7 L (Manual) Lymphocytes # Monocytes # Monocytes # 0.1 L (Manual) Eosinophils # Basophils # Nucleated Red Blood Cells # Platelet NORMAL Estimate Polychromasia 3+ Poikilocytosis 1+ Anisocytosis 2+ Microcytosis 1+ Sodium Level 137 Potassium Level 5.0 Chloride Level 89 L Carbon Dioxide 40 H Level Anion Gap 8 Blood Urea 21 H Nitrogen Creatinine 0.79 Est Glomerular > 60 Filtrat Rate mL/min Glucose Level 206 Hemoglobin A1c 7.7 H Calcium Level 8.8 Total Bilirubin 0.5 Direct Bilirubin 0.00 Indirect 0.5 Bilirubin Aspartate Amino 38 Transf (AST/SGOT ) Alanine 43 Aminotransferase (ALT/SGPT) Alkaline 158 H Phosphatase Total Protein 7.3 Albumin 3.9 Globulin 3.40 H Albumin/Globulin 1.14 Ratio Consultation Date/Type/Reason Admit Date/Time Date of Consultation: Mar 25, 2018 Type of Consult Pulm/CCM Reason for Consultation Resp Failure Hx of Present Illness In brief, this is a 67-year-old female patient with a history of COPD on home oxygen, DMII, HTN, Afib on anticoagulation, pulm HTN, HLD, HFpEF, s/p prior admits with respiratory failure who presents with acute on chronic hypercapnic and hypoxemic respiratory failure requiring high-flow oxygen. No recent sick contacts, no dietary indiscretions, no chest pain, fevers, chills. Constitutional: improved Eyes: no complaints ENT: no complaints Respiratory: shortness of breath Cardiovascular: orthopenea, palpitations Gastrointestinal: no complaints Genitourinary: no complaints Musculoskeletal: no complaints Skin: no complaints Neurologic: no complaints Endocrine: no complaints Lymphatic: no complaints Psychological: no complaints Immunologic: no complaints Past Medical History Medical History: congestive heart failure, diabetes, high cholesterol, hypertension Medications Current Medications Ondansetron HCl (Zofran Inj) 4 mg Q6H PRN IV NAUSEA AND/OR VOMITING; Start 03/24/18 at 20:00 Albuterol/ Ipratropium (Duoneb) 3 ml Q2H RESP THERAPY PRN NEB SHORTNESS OF BREATH Last administered on 03/24/18at 21:18; Admin Dose 3 ML; Start 03/24/18 at 20:00 Amiodarone HCl (Cordarone) 200 mg DAILY PO Last administered on 03/25/18at 09:37; Admin Dose 200 MG; Start 03/24/18 at 20:00 Apixaban (Eliquis) 5 mg BID PO Last administered on 03/25/18at 09:37; Admin Dose 5 MG; Start 03/24/18 at 21:00 Atorvastatin Calcium (Lipitor) 40 mg QHS PO Last administered on 03/24/18at 23:08; Admin Dose 40 MG; Start 03/24/18 at 21:00 Bumetanide (Bumex) 1 mg DAILY@0600 PO Last administered on 03/25/18at 05:41; Admin Dose 1 MG; Start 03/25/18 at 06:00 Digoxin (Digoxin) 0.125 mg DAILY@1300 PO ; Start 03/25/18 at 13:00 Linagliptin (Tradjenta) 5 mg QHS PO Last administered on 03/24/18at 23:08; Admin Dose 5 MG; Start 03/24/18 at 21:00 Primidone (Mysoline) 50 mg HS PO ; Start 03/24/18 at 21:[address] (Spiriva) 1 inh DAILY INH Last administered on 03/25/18at 09:37; Admin Dose 1 INH; Start 03/25/18 at 09:00 Miscellaneous Information (* Miscellaneous Pharmacy Order) Discontinue current oral sulfonylur... ONCE ONCE XX ; Start 03/25/18 at 10:00; Stop 03/25/18 at 10: 01; Status UNV Diagnostic Test (Pha) (Accu-Chek) 1 ea 02 XX ; Start 03/26/18 at 02:00; Status UNV Miscellaneous Information (* Miscellaneous Pharmacy Order) HYPOGLYCEMIA PROTOCOL w... ONCE ONCE XX ; Start 03/25/18 at 10:00; Stop 03/25/18 at 10:01; Status UNV Insulin Aspart (Novolog Insulin Pen) NOVOLOG *MILD* ALGORITHM WITH MEALS BEDTIME SC ; Start 03/25/18 at 11:30; Status UNV Miscellaneous Information (* Miscellaneous Pharmacy Order) Discontinue all previ... ONCE ONCE XX ; Start 03/25/18 at 10:00; Stop 03/25/18 at 10:01; Status UNV Allergies: Coded Allergies: No Known Allergies (Unverified Allergy, Unknown, 03/24/18) Past Surgical History Past Surgical Hx: no surgical history Family History Significant Family History: no pertinent family hx Social History Alcohol Use: none Smoking Status: Former smoker Drug Use: none Exam/Review of Systems Vital Signs Vitals Vital Signs Date Temp Pulse Resp B/P (MAP) Pulse Ox O2 O2 Flow FiO2 Time Delivery Rate 03/25/18 96 23 98/81 (87) 94 High Flow 06:00 03/25/18 100 05:35 03/25/18 98.6 04:00 03/24/18 4.0 17:34 Intake and Output 03/24/18 03/24/18 03/25/18 1515:00 23:00 07:00 IntakeIntake Total 350 ml OutputOutput Total 1075 ml BalanceBalance -725 ml Exam Constitutional: alert, oriented, well developed Psych: no complaints, nl mood/affect Head: normocephalic, atraumatic Eyes: nl conjunctiva, EOMI, nl lids, nl sclera ENMT: nl external ears & nose, nl lips & teeth, nl nasal mucosa & septum, mucosa pink and moist Neck: supple, non-tender, jvd Respiratory: crackles/rales, diminished breath sounds Cardiovascular: irregular rhythm, jugular venous distention (JVD) Gastrointestinal: soft, nl liver, spleen, non-tender, distended Musculoskeletal: nl extremities to inspection, nl gait and stance Extremities: normal pulses, edema 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: 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 WORKER 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, DTR's symmetric Medications Medications Current Medications Ondansetron HCl (Zofran Inj) 4 mg Q6H PRN IV NAUSEA AND/OR VOMITING; Start 03/24/18 at 20:00 Albuterol/ Ipratropium (Duoneb) 3 ml Q2H RESP THERAPY PRN NEB SHORTNESS OF BREATH Last administered on 03/24/18at 21:18; Admin Dose 3 ML; Start 03/24/18 at 20:00 Amiodarone HCl (Cordarone) 200 mg DAILY PO Last administered on 03/25/18at 09:37; Admin Dose 200 MG; Start 03/24/18 at 20:00 Apixaban (Eliquis) 5 mg BID PO Last administered on 03/25/18at 09:37; Admin Dose 5 MG; Start 03/24/18 at 21:00 Atorvastatin Calcium (Lipitor) 40 mg QHS PO Last administered on 03/24/18at 23:08; Admin Dose 40 MG; Start 03/24/18 at 21:00 Bumetanide (Bumex) 1 mg DAILY@0600 PO Last administered on 03/25/18at 05:41; Admin Dose 1 MG; Start 03/25/18 at 06:00 Digoxin (Digoxin) 0.125 mg DAILY@1300 PO ; Start 03/25/18 at 13:00 Linagliptin (Tradjenta) 5 mg QHS PO Last administered on 03/24/18at 23:08; Admin Dose 5 MG; Start 03/24/18 at 21:00 Primidone (Mysoline) 50 mg HS PO ; Start 03/24/18 at 21:[address] (Spiriva) 1 inh DAILY INH Last administered on 03/25/18at 09:37; Admin Dose 1 INH; Start 03/25/18 at 09:00 Miscellaneous Information (* Miscellaneous Pharmacy Order) Discontinue current oral sulfonylur... ONCE ONCE XX ; Start 03/25/18 at 10:00; Stop 03/25/18 at 10:01; Status UNV Diagnostic Test (Pha) (Accu-Chek) 1 ea 02 XX ; Start 03/26/18 at 02:00; Status UNV Miscellaneous Information (* Miscellaneous Pharmacy Order) HYPOGLYCEMIA PROTOCOL w... ONCE ONCE XX ; Start 03/25/18 at 10:00; Stop 03/25/18 at 10:01; Status UNV Insulin Aspart (Novolog Insulin Pen) NOVOLOG *MILD* ALGORITHM WITH MEALS BEDTIME SC ; Start 03/25/18 at 11:30; Status UNV Miscellaneous Information (* Miscellaneous Pharmacy Order) Discontinue all previ... ONCE ONCE XX ; Start 03/25/18 at 10:00; Stop 03/25/18 at 10:01; Status UNV LISSETTE ATKINS MD Mar 25, 2018 09:59
[2018-03-25] MEDS ORDERED: GUAIFENESIN 20 MG/ML 5ML CUP PO PRN (10:00)
[2018-03-25] MEDS ORDERED: GLUCOSE GEL 15 GRAM TUBE BUCCAL PRN (10:30)
[2018-03-25] MEDS ORDERED: DEXTROSE 50% 50 ML SYRINGE IV PRN ×2 (10:30)
[2018-03-25] MEDS ORDERED: GLUCOSE GEL 15 GRAM TUBE PO PRN ×2 (10:30)
[2018-03-25] MEDS ORDERED: GLUCAGON 1 MG INJ IM PRN (10:30)
[2018-03-25] MEDS: BUMETANIDE 1 MG INJ IV SCH ×2 (10:37→18:33)
[2018-03-25] MEDS: DIGOXIN 0.125 MG TAB PO SCH (12:33)
[2018-03-25] MEDS: INSULIN ASPART [NOVOLOG] 3 ML PEN SC SCH ×3 (12:44→20:18)
[2018-03-25] MEDS: ATORVASTATIN 40 MG TAB PO SCH (20:09)
[2018-03-25] MEDS: LINAGLIPTIN 5 MG TABLET PO SCH (20:10)
[2018-03-25] MEDS: PRIMIDONE 50 MG TAB PO SCH (20:18)
[2018-03-26] VITALS (17 sets, daily range): BP systolic 102–129; BP diastolic 54–88; PULSE 60–118; RESP 18–28
[2018-03-26] MEDS: ACCU-CHEK XX SCH (02:00)
[2018-03-26] MEDS: BUMETANIDE 1 MG INJ IV SCH ×2 (05:23→18:16)
[2018-03-26] MEDS: INSULIN ASPART [NOVOLOG] 3 ML PEN SC SCH ×4 (07:35→20:19)
--- NOTE | 2018-03-26 09:14 | CONS ---
Date/Time of Note Date/Time of Note DATE: 03/26/18 TIME: 09:12 Assessment/Plan Assessment/Plan Assessment/Plan Chest x-ray showing increasing consolidation in left lower lobe. Assessment recommendations; 1. Patient with history of chronic type II respiratory failure admitted for CHF exacerbation as well as bilateral pneumonia with interval radiological worsening. Patient however remains clinically stable. 2. Chronic atrial fibrillation. 3. COPD. 4. Hypertension. 5. Diabetes. 6. Sleep apnea. Continue current supportive care. Add cefepime and Levaquin. Wean down FiO2 as tolerated. Result Diagram: 03/26/18 0456 03/26/18 0456 Results 24hrs Laboratory Tests Test 03/25/18 10:10 03/25/18 12:32 03/25/18 17:33 03/25/18 20:11 D-Dimer 1248.74 H D-Dimer Comment B-Type Natriuretic 2580 H Peptide Bedside Glucose 210 159 191 Test 03/26/18 04:56 03/26/18 05:00 03/26/18 07:56 White Blood Count 10.7 Red Blood Count 3.99 L Hemoglobin 11.7 L Hematocrit 38.6 Mean Corpuscular 96.7 Volume Mean Corpuscular 29.3 Hemoglobin Mean Corpuscular 30.3 L Hemoglobin Concent Red Cell 17.1 H Distribution Width Platelet Count 233 Mean Platelet 9.8 Volume Immature 0.700 H Granulocytes % Neutrophils % 74.6 Lymphocytes % 14.2 L Monocytes % 8.2 Eosinophils % 1.7 Basophils % 0.6 Nucleated Red 0.0 Blood Cells % Immature 0.070 H Granulocytes # Neutrophils # 8.0 H Lymphocytes # 1.5 Monocytes # 0.9 Eosinophils # 0.2 Basophils # 0.1 Nucleated Red 0.0 Blood Cells # Sodium Level 139 Potassium Level 3.9 Chloride Level 86 L Carbon Dioxide 42 *H Level Anion Gap 11 Blood Urea 31 H Nitrogen Creatinine 0.89 Est Glomerular > 60 Filtrat Rate mL/min Glucose Level 140 # Calcium Level 8.8 Phosphorus Level 4.2 Magnesium Level 2.0 Total Bilirubin 0.2 Direct Bilirubin 0.00 Indirect Bilirubin 0.2 Aspartate Amino 25 Transf (AST/SGOT) Alanine 35 Aminotransferase ( ALT/SGPT) Alkaline 111 Phosphatase Total Protein 6.7 Albumin 3.5 Globulin 3.20 Albumin/Globulin 1.09 Ratio Blood Gas Specimen Blood venous Source Arterial Blood 03/26/2018 5:05:56 Date Drawn AM Arterial Blood Gas VENOUS LINE Puncture Site Joseph Test N/A Venous Blood pH 7.468 H Venous Blood pCO2 59.1 H (Temp Corrected) Venous Blood pO2 46.6 H (Temp Corrected) Venous Blood HCO3 41.9 H Venous Blood 85.2 H Oxygen Saturation Venous Blood Base 15.4 H Excess Venous Blood Total 13.1 Hemoglobin Venous Blood 84.2 Oxyhemoglobin Venous Blood 0.1 Methemoglobin Carboxyhemoglobin 1.1 Blood Gas 37.0 Temperature Blood Gas Modality Vapotherm FiO2 75.0 Blood Gas Notified [facility] Whom Blood Gas Notified 03/26/2018 5:25:55 Time AM Bedside Glucose 127 Consultation Date/Type/Reason Admit Date/Time Mar 24, 2018 at 19:37 Initial Consult Date 03/25/18 Type of Consult Pulmonary Reason for Consultation Patient's condition is stable. Remains completely awake and alert. Still on high flow nasal cannula although it lower FiO2. Denies any chest pain, coughing, wheezing, sputum production. General exam; elderly female, morbidly obese, awake and alert. Currently in no distress. Exam/Review of Systems Vital Signs Vitals Vital Signs Date Temp Pulse Resp B/P (MAP) Pulse Ox O2 O2 Flow FiO2 Time Delivery Rate 03/26/18 92 50 09:06 03/26/18 95 08:00 03/26/18 26 06:00 03/26/18 High Flow 05:00 03/26/18 98.5 04:00 03/26/18 129/76 00:00 (93) 03/25/18 15.0 20:00 Intake and Output 03/25/18 03/25/18 03/26/18 1515:00 23:00 07:00 IntakeIntake Total 450 ml 200 ml OutputOutput Total 2125 ml 1550 ml 650 ml BalanceBalance -1675 ml -1350 ml -650 ml Exam HEENT exam; supple neck, JVD difficult to see because of short neck. No neck masses. Patient has few remaining carious teeth. Chest exam; diminished breath sounds bilaterally. S1-S2 audible, no murmurs. Irregular rhythm. Abdomen exam; soft, no organomegaly. Protuberant. Bowel sounds audible. Nontender. Extremity exam; no edema clubbing. Pulses 1+. INGREDIENT HANDLER exam; no focal deficit. Medications Medications Current Medications Ondansetron HCl (Zofran Inj) 4 mg Q6H PRN IV NAUSEA AND/OR VOMITING; Start 03/24/18 at 20:00 Albuterol/ Ipratropium (Duoneb) 3 ml Q2H RESP THERAPY PRN NEB SHORTNESS OF B REATH Last administered on 03/24/18 21:18; Admin Dose 3 ML; Start 03/24/18 at 20:00 Amiodarone HCl (Cordarone) 200 mg DAILY PO Last administered on 03/25/18 09:37; Admin Dose 200 MG; Start 03/24/18 at 20:00 Apixaban (Eliquis) 5 mg BID PO Last administered on 03/25/18 20:10; Admin Dose 5 MG; Start 03/24/18 at 21:00 Atorvastatin Calcium (Lipitor) 40 mg QHS PO Last administered on 03/25/18 20:09; Admin Dose 40 MG; Start 03/24/18 at 21:00 Digoxin (Digoxin) 0.125 mg DAILY@1300 PO Last administered on 03/25/18 12:33; Admin Dose 0.125 MG; Start 03/25/18 at 13:00 Linagliptin (Tradjenta) 5 mg QHS PO Last administered on 03/25/18 20:10; Admin Dose 5 MG; Start 03/24/18 at 21:00 Primidone (Mysoline) 50 mg HS PO ; Start 03/24/18 at 21:00 Tiotropium [place] (Spiriva) 1 inh DAILY INH Last administered on 03/25/18 09:37; Admin Dose 1 INH; Start 03/25/18 at 09:00 Diagnostic Test (Pha) (Accu-Chek) 1 ea 02 XX ; Start 03/26/18 at 02:00 Insulin Aspart (Novolog Insulin Pen) NOVOLOG *MILD* ALGORITHM WITH MEALS BEDTIME SC Last administered on 03/25/18 20:18; Admin Dose 1 UNIT; Start 03/25/18 at 11:30 Bumetanide (Bumex) 1 mg BID DIURETICS IV Last administered on 03/26/18 05:23; Admin Dose 1 MG; Start 03/25/18 at 10:00 Guaifenesin (Robitussin Liquid Cup) 200 mg Q4H PRN PO COUGH; Start 03/25/18 at 10:00 Miscellaneous Information 1 ea NOTE XX ; Start 03/25/18 at 10:30 Glucose (Glutose) 15 gm Q15M PRN PO DECREASED GLUCOSE; Start 03/25/18 at 10:30 Glucose (Glutose) 22.5 gm Q15M PRN PO DECREASED GLUCOSE; Start 03/25/18 at 10:30 Dextrose (D50w Syringe) 25 ml Q15M PRN IV DECREASED GLUCOSE; Start 03/25/18 at 10:30 Dextrose (D50w Syringe) 50 ml Q15M PRN IV DECREASED GLUCOSE; Start 03/25/18 at 10:30 Glucagon (Glucagen) 1 mg Q15M PRN IM DECREASED GLUCOSE; Start 03/25/18 at 10:30 Glucose (Glutose) 15 gm Q15M PRN BUCCAL DECREASED GLUCOSE; Start 03/25/18 at 10:30 Cefepime HCl 50 ml @ 100 mls/hr Q12 IVPB ; Start 03/26/18 at 09:30; Status MAGALYS DANIELS Mar 26, 2018 09:14
[2018-03-26] MEDS: AMIODARONE 200 MG TAB PO SCH (09:23)
[2018-03-26] MEDS: LEVOFLOXACIN 500MG/D5W (PMX) 100 ML IVPB SCH (09:24)
[2018-03-26] MEDS: APIXABAN 5 MG TABLET PO SCH ×2 (09:24→20:12)
[2018-03-26] MEDS: TIOTROPIUM 18 MCG CAPSULE INHA DEV INH SCH (09:25)
--- NOTE | 2018-03-26 09:29 | PN ---
Date/Time of Note Date/Time of Note DATE: 03/26/18 TIME: 09:11 Assessment/Plan VTE Prophylaxis Risk score (from Nsg)>0 risk: 8 SCD applied (from Nsg): No SCD contraindicated: other (no) Pharmacological prophylaxis: LMWH Lines/Catheters IV Catheter Type (from Nrsg): Peripheral IV Urinary Cath still in place: Yes Reason Cath still needed: other (indicate) (diuresis) Assessment/Plan Assessment/Plan 67-year-old female patient with comorbidities including COPD on home oxygen, diastolic heart failure, atrial fibrillation on Eliquis, diabetes mellitus type II, hypertension, pulmonary hypertension and dyslipidemia presented with shortness of breath and found with hypercapnic/hypoxic respiratory failure, likely combination of COPD exacerbation, A-fib with RVR, acute on chronic diastolic CHF and pneumonia # Hypoxic and hypercapnic respiratory failure: Mixed etiology includes HFpEF, OHS/MICHAEL, COPD and cor pulmonale. Likely represents a combination of ADHF and possible LLL pneumonia, although cannot exclude a PE. - Pulmonary is following. - Continue supplemental O2. At home requires 4L, now on HFNC 20L 50%. - Continue bronchodilators. Got IV steroids x1 on admission. - CXR shows increasing patchy infiltrates in the absence of bacterial pneumonia symptoms - May benefit from CT chest, she may have developed bronchiectasis which would benefit from chest PT. - Currently not on antibiotics. Will defer to pulmonary. # Atrial fibrillation with RVR: Currently rate controlled. -For now continue home meds including, amiodarone, digoxin and Eliquis -Holding metoprolol. # COPD exacerbation: Of note ,patient on 4L home oxygen prior to admission. - Pulmonary following - Daily spiriva, prn duonebs. - No steroids. # Acute on chronic diastolic CHF - IV diuresis. Home metoprolol has been held. # Type 2 diabetes with hyperglycemia. A1c is 7.7. -For now continue Tradjenta, insulin sliding scale, monitor sugars # Hypertension: BP within goal. - Continue home meds # Dyslipidemia: Continue statin # Morbid obesity with a BMI of 53 - This appears to be the underlying cause of many of her problems, and she is aware of that fact. - Unfortunately her weight has increased over the course of several hospitali zations. This may be due to fluid retention from CHF also. - The patient reports skipping meals frequently and eating lower-calorie options as her method for weight loss. Result Diagram: 03/26/18 0456 03/26/18 0456 Results 24hrs Laboratory Tests Test 03/25/18 10:10 03/25/18 12:32 03/25/18 17:33 03/25/18 20:11 D-Dimer 1248.74 H D-Dimer Comment B-Type Natriuretic 2580 H Peptide Bedside Glucose 210 159 191 Test 03/26/18 04:56 03/26/18 05:00 03/26/18 07:56 White Blood Count 10.7 Red Blood Count 3.99 L Hemoglobin 11.7 L Hematocrit 38.6 Mean Corpuscular 96.7 Volume Mean Corpuscular 29.3 Hemoglobin Mean Corpuscular 30.3 L Hemoglobin Concent Red Cell 17.1 H Distribution Width Platelet Count 233 Mean Platelet 9.8 Volume Immature 0.700 H Granulocytes % Neutrophils % 74.6 Lymphocytes % 14.2 L Monocytes % 8.2 Eosinophils % 1.7 Basophils % 0.6 Nucleated Red 0.0 Blood Cells % Immature 0.070 H Granulocytes # Neutrophils # 8.0 H Lymphocytes # 1.5 Monocytes # 0.9 Eosinophils # 0.2 Basophils # 0.1 Nucleated Red 0.0 Blood Cells # Sodium Level 139 Potassium Level 3.9 Chloride Level 86 L Carbon Dioxide 42 *H Level Anion Gap 11 Blood Urea 31 H Nitrogen Creatinine 0.89 Est Glomerular > 60 Filtrat Rate mL/min Glucose Level 140 # Calcium Level 8.8 Phosphorus Level 4.2 Magnesium Level 2.0 Total Bilirubin 0.2 Direct Bilirubin 0.00 Indirect Bilirubin 0.2 Aspartate Amino 25 Transf (AST/SGOT) Alanine 35 Aminotransferase ( ALT/SGPT) Alkaline 111 Phosphatase Total Protein 6.7 Albumin 3.5 Globulin 3.20 Albumin/Globulin 1.09 Ratio Blood Gas Specimen Blood venous Source Arterial Blood 03/26/2018 5:05:56 Date Drawn AM Arterial Blood Gas VENOUS LINE Puncture Site Joseph Test N/A Venous Blood pH 7.468 H Venous Blood pCO2 59.1 H (Temp Corrected) Venous Blood pO2 46.6 H (Temp Corrected) Venous Blood HCO3 41.9 H Venous Blood 85.2 H Oxygen Saturation Venous Blood Base 15.4 H Excess Venous Blood Total 13.1 Hemoglobin Venous Blood 84.2 Oxyhemoglobin Venous Blood 0.1 Methemoglobin Carboxyhemoglobin 1.1 Blood Gas 37.0 Temperature Blood Gas Modality Vapotherm FiO2 75.0 Blood Gas Notified [facility] Whom Blood Gas Notified 03/26/2018 5:25:55 Time AM Bedside Glucose 127 Subjective 24 Hr Interval Summary Free Text/Dictation No acute overnight events. Patient awake, talkative today. Apparently, after last hospitalization she was discharged to [facility] on 02/01. She was there for about 2.5 weeks then went home before [place]. She was fairly functional and could ambulate and do most ADLs on 4L nasal cannula. On the day she came back in she did not have recent fevers, chills, or cough; just desaturations and dyspnea. This morning on HFNC 20L 50% FiO2 Exam/Review of Systems Vital Signs Vitals Vital Signs Date Temp Pulse Resp B/P (MAP) Pulse Ox O2 O2 Flow FiO2 Time Delivery Rate 03/26/18 92 50 09:06 03/26/18 95 08:00 03/26/18 26 06:00 03/26/18 High Flow 05:00 03/26/18 98.5 04:00 03/26/18 129/76 00:00 (93) 03/25/18 15.0 20:00 Intake and Output 03/25/18 03/25/18 03/26/18 1515:00 23:00 07:00 IntakeIntake Total 450 ml 200 ml OutputOutput Total 2125 ml 1550 ml 650 ml BalanceBalance -1675 ml -1350 ml -650 ml Exam Gen: Morbidly obese woman lying comfortably in bed in no acute distress HEENT: Clear oropharynx, HFNC in place Card: Irregularly irregular, no murmurs Pulm: Inspiratory wheezes throughout. Diminished bibasilar breath sounds L>R with rales. Abd: Obese, distended, soft, nontender. Well healed suprapubic surgical scar. Ext: 1+ nonpitting LE edema. Skin: Several skin tags along upper chest and back. Chronic LE venous stasis changes. Medications Medications Current Medications Ondansetron HCl (Zofran Inj) 4 mg Q6H PRN IV NAUSEA AND/OR VOMITING; Start 03/24/18 at 20:00 Albuterol/ Ipratropium (Duoneb) 3 ml Q2H RESP THERAPY PRN NEB SHORTNESS OF BREATH Last administered on 1/5/19at 21:18; Admin Dose 3 ML; Start 03/24/18 at 20:00 Amiodarone HCl (Cordarone) 200 mg DAILY PO Last administered on 03/25/18 09:37; Admin Dose 200 MG; Start 03/24/18 at 20:00 Apixaban (Eliquis) 5 mg BID PO Last administered on 03/25/18 20:10; Admin Dose 5 MG; Start 03/24/18 at 21:00 Atorvastatin Calcium (Lipitor) 40 mg QHS PO Last administered on 03/25/18 20:09; Admin Dose 40 MG; Start 03/24/18 at 21:00 Digoxin (Digoxin) 0.125 mg DAILY@1300 PO Last administered on 03/25/18 12:33; Admin Dose 0.125 MG; Start 03/25/18 at 13:00 Linagliptin (Tradjenta) 5 mg QHS PO Last administered on 03/25/18 20:10; Admin Dose 5 MG; Start 03/24/18 at 21:00 Primidone (Mysoline) 50 mg HS PO ; Start 03/24/18 at 21:00 Tiotropium [place] (Spiriva) 1 inh DAILY INH Last administered on 03/25/18 09:37; Admin Dose 1 INH; Start 03/25/18 at 09:00 Diagnostic Test (Pha) (Accu-Chek) 1 ea 02 XX ; Start 03/26/18 at 02:00 Insulin Aspart (Novolog Insulin Pen) NOVOLOG *MILD* ALGORITHM WITH MEALS BEDTIME SC Last administered on 03/25/18 20:18; Admin Dose 1 UNIT; Start 03/25/18 at 11:30 Bumetanide (Bumex) 1 mg BID DIURETICS IV Last administered on 03/26/18 05:23; Admin Dose 1 MG; Start 03/25/18 at 10:00 Guaifenesin (Robitussin Liquid Cup) 200 mg Q4H PRN PO COUGH; Start 03/25/18 at 10:00 Miscellaneous Information 1 ea NOTE XX ; Start 03/25/18 at 10:30 Glucose (Glutose) 15 gm Q15M PRN PO DECREASED GLUCOSE; Start 03/25/18 at 10:30 Glucose (Glutose) 22.5 gm Q15M PRN PO DECREASED GLUCOSE; Start 03/25/18 at 10:30 Dextrose (D50w Syringe) 25 ml Q15M PRN IV DECREASED GLUCOSE; Start 03/25/18 at 10:30 Dextrose (D50w Syringe) 50 ml Q15M PRN IV DECREASED GLUCOSE; Start 03/25/18 at 10:30 Glucagon (Glucagen) 1 mg Q15M PRN IM DECREASED GLUCOSE; Start 03/25/18 at 10:30 Glucose (Glutose) 15 gm Q15M PRN BUCCAL DECREASED GLUCOSE; Start 03/25/18 at 10:30 BERE NEVILLE MD Mar 26, 2018 09:22
[2018-03-26] MEDS: CEFEPIME 1GM/50 ML (PMX) 50 ML IVPB SCH ×2 (10:36→20:15)
[2018-03-26] MEDS: DIGOXIN 0.125 MG TAB PO SCH (13:06)
--- NOTE | 2018-03-26 13:09 | CONS ---
Date/Time of Note Date/Time of Note DATE: 03/26/18 TIME: 13:09 Assessment/Plan Assessment/Plan Assessment/Plan Respiratory failure Acute decompensated diastolic congestive heart failure Pneumonia Preserved ejection fraction Chronic atrial fibrillation Obesity hypoventilation syndrome -Patient presented with shortness of breath with evidence of decompensated congestive heart failure as well as pneumonia. Symptoms have improved and currently off BiPAP. We will continue diuretic therapy, of note from previous admission in discussion with patient, she does admit to me in the past she is noncompliant with medications as well as low-sodium diet. This could likely be a contributing factor. Restart beta-lam if no contraindication Result Diagram: 03/26/18 0456 03/26/18 0456 Results 24hrs Laboratory Tests Test 03/25/18 17:33 03/25/18 20:11 03/26/18 04:56 03/26/18 05:00 Bedside Glucose 159 191 White Blood Count 10.7 Red Blood Count 3.99 L Hemoglobin 11.7 L Hematocrit 38.6 Mean Corpuscular 96.7 Volume Mean Corpuscular 29.3 Hemoglobin Mean Corpuscular 30.3 L Hemoglobin Concent Red Cell 17.1 H Distribution Width Platelet Count 233 Mean Platelet 9.8 Volume Immature 0.700 H Granulocytes % Neutrophils % 74.6 Lymphocytes % 14.2 L Monocytes % 8.2 Eosinophils % 1.7 Basophils % 0.6 Nucleated Red 0.0 Blood Cells % Immature 0.070 H Granulocytes # Neutrophils # 8.0 H Lymphocytes # 1.5 Monocytes # 0.9 Eosinophils # 0.2 Basophils # 0.1 Nucleated Red 0.0 Blood Cells # Sodium Level 139 Potassium Level 3.9 Chloride Level 86 L Carbon Dioxide 42 *H Level Anion Gap 11 Blood Urea 31 H Nitrogen Creatinine 0.89 Est Glomerular > 60 Filtrat Rate mL/min Glucose Level 140 # Calcium Level 8.8 Phosphorus Level 4.2 Magnesium Level 2.0 Total Bilirubin 0.2 Direct Bilirubin 0.00 Indirect Bilirubin 0.2 Aspartate Amino 25 Transf (AST/SGOT) Alanine 35 Aminotransferase ( ALT/SGPT) Alkaline 111 Phosphatase Total Protein 6.7 Albumin 3.5 Globulin 3.20 Albumin/Globulin 1.09 Ratio Blood Gas Specimen Blood venous Source Arterial Blood 03/26/2018 5:05:56 Date Drawn AM Arterial Blood Gas VENOUS LINE Puncture Site Joseph Test N/A Venous Blood pH 7.468 H Venous Blood pCO2 59.1 H (Temp Corrected) Venous Blood pO2 46.6 H (Temp Corrected) Venous Blood HCO3 41.9 H Venous Blood 85.2 H Oxygen Saturation Venous Blood Base 15.4 H Excess Venous Blood Total 13.1 Hemoglobin Venous Blood 84.2 Oxyhemoglobin Venous Blood 0.1 Methemoglobin Carboxyhemoglobin 1.1 Blood Gas 37.0 Temperature Blood Gas Modality Vapotherm FiO2 75.0 Blood Gas Notified [facility] Whom Blood Gas Notified 03/26/2018 5:25:55 Time AM Test 03/26/18 07:56 03/26/18 11:31 Bedside Glucose 127 171 Consultation Date/Type/Reason Admit Date/Time Mar 24, 2018 at 19:37 Type of Consult cv Reason for Consultation Shortness of breath Hx of Present Illness This is a 67-year-old female well-known to me from recent previous admission at [facility] who presents with progressive worsening shortness of breath. Symptoms going on for approximate 1 day prior to admission. No fevers or chills. She was initially on BiPAP but currently on nasal cannula. She is on home oxygen. She is currently feeling much better, shortness of breath is still present but significantly improved, she denies any palpitations, chest pain, dizziness or lightheadedness. 12 point review of systems was performed with all pertinent positives and negatives mentioned above and all else is negative Past Medical History Medical History: congestive heart failure, diabetes, high cholesterol, hypertension Medications Current Medications Ondansetron HCl (Zofran Inj) 4 mg Q6H PRN IV NAUSEA AND/OR VOMITING; Start 03/24/18 at 20:00 Albuterol/ Ipratropium (Duoneb) 3 ml Q2H RESP THERAPY PRN NEB SHORTNESS OF BREATH Last administered on 03/24/18at 21:18; Admin Dose 3 ML; Start 03/24/18 at 20:00 Amiodarone HCl (Cordarone) 200 mg DAILY PO Last administered on 03/26/18at 09:23; Admin Dose 200 MG; Start 03/24/18 at 20:00 Apixaban (Eliquis) 5 mg BID PO Last administered on 03/26/18at 09:24; Admin Dose 5 MG; Start 03/24/18 at 21:00 Atorvastatin Calcium (Lipitor) 40 mg QHS PO Last administered on 03/25/18at 20:09; Admin Dose 40 MG; Start 03/24/18 at 21:00 Digoxin (Digoxin) 0.125 mg DAILY@1300 PO Last administered on 03/26/18at 13:06; Admin Dose 0.125 MG; Start 03/25/18 at 13:00 Linagliptin (Tradjenta) 5 mg QHS PO Last administered on 03/25/18at 20:10; Admin Dose 5 MG; Start 03/24/18 at 21:00 Primidone (Mysoline) 50 mg HS PO ; Start 03/24/18 at 21:00 Tiotropium [place] (Spiriva) 1 inh DAILY INH Last administered on 03/26/18at 09:25; Admin Dose 1 INH; Start 03/25/18 at 09:00 Diagnostic Test (Pha) (Accu-Chek) 1 ea 02 XX ; Start 03/26/18 at 02:00 Insulin Aspart (Novolog Insulin Pen) NOVOLOG *MILD* ALGORITHM WITH MEALS BEDTIME SC Last administered on 03/26/18at 11:38; Admin Dose 1 UNIT; Start 03/25/18 at 11:30 Bumetanide (Bumex) 1 mg BID DIURETICS IV Last administered on 03/26/18at 05:23; Admin Dose 1 MG; Start 03/25/18 at 10:00 Guaifenesin (Robitussin Liquid Cup) 200 mg Q4H PRN PO COUGH; Start 03/25/18 at 10:00 Miscellaneous Information 1 ea NOTE XX ; Start 03/25/18 at 10:30 Glucose (Glutose) 15 gm Q15M PRN PO DECREASED GLUCOSE; Start 03/25/18 at 10:30 Glucose (Glutose) 22.5 gm Q15M PRN PO DECREASED GLUCOSE; Start 03/25/18 at 10:30 Dextrose (D50w Syringe) 25 ml Q15M PRN IV DECREASED GLUCOSE; Start 03/25/18 at 10:30 Dextrose (D50w Syringe) 50 ml Q15M PRN IV DECREASED GLUCOSE; Start 03/25/18 at 10:30 Glucagon (Glucagen) 1 mg Q15M PRN IM DECREASED GLUCOSE; Start 03/25/18 at 10:30 Glucose (Glutose) 15 gm Q15M PRN BUCCAL DECREASED GLUCOSE; Start 03/25/18 at 10:30 Cefepime HCl 50 ml @ 100 mls/hr Q12 IVPB Last administered on 03/26/18at 10:36; Admin Dose 100 MLS/HR; Start 03/26/18 at 10:30 Levofloxacin/ Dextrose 100 ml @ 100 mls/hr Q24H IVPB Last administered on 03/26/18at 09:24; Admin Dose 100 MLS/HR; Start 03/26/18 at 09:30 Allergies: Coded Allergies: No Known Allergies (Unverified Allergy, Unknown, 03/24/18) Past Surgical History Past Surgical Hx: no surgical history Family History Significant Family History: no pertinent family hx Social History Alcohol Use: none Smoking Status: Former smoker Drug Use: none Exam/Review of Systems Vital Signs Vitals Vital Signs Date Temp Pulse Resp B/P (MAP) Pulse Ox O2 O2 Flow FiO2 Time Delivery Rate 03/26/18 98.5 93 22 117/88 92 High Flow 13:07 (98) 03/26/18 50 09:06 03/25/18 15.0 20:00 Intake and Output 03/25/18 03/25/18 03/26/18 1515:00 23:00 07:00 IntakeIntake Total 450 ml 200 ml OutputOutput Total 2125 ml 1550 ml 650 ml BalanceBalance -1675 ml -1350 ml -650 ml Exam Sitting in chair, obese, no apparent distress Constitutional: alert, oriented, obese Head: normocephalic Respiratory: other (Coarse breath sounds bilaterally, mild scattered crackles, no wheezing) Cardiovascular: irregular rhythm, other (S1-S2 heard) Gastrointestinal: soft, non-tender, bowel sounds Extremities: edema Medications Medications Current Medications Ondansetron HCl (Zofran Inj) 4 mg Q6H PRN IV NAUSEA AND/OR VOMITING; Start 03/24/18 at 20:00 Albuterol/ Ipratropium (Duoneb) 3 ml Q2H RESP THERAPY PRN NEB SHORTNESS OF BREATH Last administered on 03/24/18at 21:18; Admin Dose 3 ML; Start 03/24/18 at 20:00 Amiodarone HCl (Cordarone) 200 mg DAILY PO Last administered on 03/26/18at 09:23; Admin Dose 200 MG; Start 03/24/18 at 20:00 Apixaban (Eliquis) 5 mg BID PO Last administered on 03/26/18 09:24; Admin Dose 5 MG; Start 03/24/18 at 21:00 Atorvastatin Calcium (Lipitor) 40 mg QHS PO Last administered on 03/25/18at 20:09; Admin Dose 40 MG; Start 03/24/18 at 21:00 Digoxin (Digoxin) 0.125 mg DAILY@1300 PO Last administered on 03/26/18at 13:06; Admin Dose 0.125 MG; Start 03/25/18 at 13:00 Linagliptin (Tradjenta) 5 mg QHS PO Last administered on 03/25/18at 20:10; Admin Dose 5 MG; Start 03/24/18 at 21:00 Primidone (Mysoline) 50 mg HS PO ; Start 03/24/18 at 21:00 Tiotropium [place] (Spiriva) 1 inh DAILY INH Last administered on 03/26/18at 09:25; Admin Dose 1 INH; Start 03/25/18 at 09:00 Diagnostic Test (Pha) (Accu-Chek) 1 ea 02 XX ; Start 03/26/18 at 02:00 Insulin Aspart (Novolog Insulin Pen) NOVOLOG *MILD* ALGORITHM WITH MEALS BEDTIME SC Last administered on 03/26/18at 11:38; Admin Dose 1 UNIT; Start 03/25/18 at 11:30 Bumetanide (Bumex) 1 mg BID DIURETICS IV Last administered on 03/26/18at 05:23; Admin Dose 1 MG; Start 03/25/18 at 10:00 Guaifenesin (Robitussin Liquid Cup) 200 mg Q4H PRN PO COUGH; Start 03/25/18 at 10:00 Miscellaneous Information 1 ea NOTE XX ; Start 03/25/18 at 10:30 Glucose (Glutose) 15 gm Q15M PRN PO DECREASED GLUCOSE; Start 03/25/18 at 10:30 Glucose (Glutose) 22.5 gm Q15M PRN PO DECREASED GLUCOSE; Start 03/25/18 at 10:30 Dextrose (D50w Syringe) 25 ml Q15M PRN IV DECREASED GLUCOSE; Start 03/25/18 at 10:30 Dextrose (D50w Syringe) 50 ml Q15M PRN IV DECREASED GLUCOSE; Start 03/25/18 at 10:30 Glucagon (Glucagen) 1 mg Q15M PRN IM DECREASED GLUCOSE; Start 03/25/18 at 10:30 Glucose (Glutose) 15 gm Q15M PRN BUCCAL DECREASED GLUCOSE; Start 03/25/18 at 1 0:30 Cefepime HCl 50 ml @ 100 mls/hr Q12 IVPB Last administered on 03/26/18at 10:36; Admin Dose 100 MLS/HR; Start 03/26/18 at 10:30 Levofloxacin/ Dextrose 100 ml @ 100 mls/hr Q24H IVPB Last administered on 03/26/18at 09:24; Admin Dose 100 MLS/HR; Start 03/26/18 at 09:30 Imaging Imaging ECG with atrial fibrillation at 107 bpm, right bundle branch block with QRS 152 ms, nonspecific ST abnormalities Artemio Freeman DO Mar 26, 2018 13:09
[2018-03-26] MEDS: ATORVASTATIN 40 MG TAB PO SCH (20:12)
[2018-03-26] MEDS: METOPROLOL 25 MG TAB PO SCH (20:13)
[2018-03-26] MEDS: PRIMIDONE 50 MG TAB PO SCH (20:15)
[2018-03-26] MEDS: LINAGLIPTIN 5 MG TABLET PO SCH (20:15)
[2018-03-27] VITALS (10 sets, daily range): BP systolic 89–112; BP diastolic 61–78; PULSE 64–118; RESP 18–20
[2018-03-27] MEDS: ACCU-CHEK XX SCH (02:00)
[2018-03-27] MEDS: BUMETANIDE 1 MG INJ IV SCH ×3 (06:03→20:45)
[2018-03-27] MEDS: METOPROLOL 25 MG TAB PO SCH ×2 (08:10→20:44)
[2018-03-27] MEDS: TIOTROPIUM 18 MCG CAPSULE INHA DEV INH SCH (08:10)
[2018-03-27] MEDS: CEFEPIME 1GM/50 ML (PMX) 50 ML IVPB SCH ×2 (08:11→20:43)
[2018-03-27] MEDS: AMIODARONE 200 MG TAB PO SCH (08:11)
[2018-03-27] MEDS: APIXABAN 5 MG TABLET PO SCH ×2 (08:11→20:44)
[2018-03-27] MEDS: LEVOFLOXACIN 500MG/D5W (PMX) 100 ML IVPB SCH (08:11)
[2018-03-27] MEDS: INSULIN ASPART [NOVOLOG] 3 ML PEN SC SCH ×4 (08:19→20:54)
--- NOTE | 2018-03-27 11:20 | CONS ---
Date/Time of Note Date/Time of Note DATE: 03/27/18 TIME: 11:18 Assessment/Plan Assessment/Plan Assessment/Plan Assessment and recommendations; 1. Patient with history of underlying obesity and sleep apnea as well as obe sity hypoventilation syndrome admitted for CHF exacerbation with likely superimposed bilateral pneumonia. Clinically much improved. 2. Chronic atrial fibrillation. Continue current supportive care. Obtain follow-up chest x-ray in 48 hours. Result Diagram: 03/27/18 1039 03/26/18 0456 Results 24hrs Laboratory Tests Test 03/26/18 11:31 03/26/18 16:18 03/26/18 20:11 03/27/18 02:26 Bedside Glucose 171 115 205 258 H Test 03/27/18 08:09 03/27/18 10:39 Bedside Glucose 159 White Blood Count 9.9 Red Blood Count 4.23 Hemoglobin 12.4 Hematocrit 41.1 Mean Corpuscular Volume 97.2 Mean Corpuscular 29.3 Hemoglobin Mean Corpuscular 30.2 L Hemoglobin Concent Red Cell Distribution 17.2 H Width Platelet Count 225 Mean Platelet Volume 9.7 Immature Granulocytes % 0.600 H Neutrophils % 78.9 H Lymphocytes % 9.9 L Monocytes % 8.1 Eosinophils % 2.1 Basophils % 0.4 Nucleated Red Blood 0.0 Cells % Immature Granulocytes # 0.060 H Neutrophils # 7.8 H Lymphocytes # 1.0 Monocytes # 0.8 Eosinophils # 0.2 Basophils # 0.0 Nucleated Red Blood 0.0 Cells # Consultation Date/Type/Reason Admit Date/Time Mar 24, 2018 at 19:37 Initial Consult Date 03/25/18 Type of Consult Pulmonary 24 HR Interval Summary Free Text/Dictation Patient's condition is improving. Has been transferred out of ICU to medical floor. Patient also has been weaned off high flow nasal cannula to 6 L nasal cannula with stable O2 saturation. Patient reports marked reduction in shortness of breath. General exam; elderly female, awake alert, sitting in a chair by bedside, awake and alert. Currently in no distress. Exam/Review of Systems Vital Signs Vitals Vital Signs Date Temp Pulse Resp B/P (MAP) Pulse Ox O2 O2 Flow FiO2 Time Delivery Rate 03/27/18 98.2 64 18 105/73 93 11:13 (84) 03/27/18 Nasal 6.0 07:39 Cannula 03/26/18 50 09:06 Intake and Output 03/26/18 03/26/18 03/27/18 1515:00 23:00 07:00 IntakeIntake Total 750 ml 640 ml 350 ml OutputOutput Total 1600 ml 800 ml 1850 ml BalanceBalance -850 ml -160 ml -1500 ml Exam HEENT exam; supple neck, positive JVD. No lymphadenopathy. Midline trachea. No thyromegaly. No neck masses. Patient has few remaining carious teeth. Chest exam; diminished but clear breath sounds. S1-S2 audible, no murmurs. Irregular rhythm. Abdomen exam; soft, no organomegaly. Bowel sounds audible. Nontender. Organomegaly difficult to assess. Extremity exam; trace peripheral edema. [employer] exam; no focal deficit. Medications Medications Current Medications Ondansetron HCl (Zofran Inj) 4 mg Q6H PRN IV NAUSEA AND/OR VOMITING; Start 03/24/18 at 20:00 Albuterol/ Ipratropium (Duoneb) 3 ml Q2H RESP THERAPY PRN NEB SHORTNESS OF BREATH Last administered on 03/24/18 21:18; Admin Dose 3 ML; Start 03/24/18 at 20:00 Amiodarone HCl (Cordarone) 200 mg DAILY PO Last administered on 03/27/18 08:11; Admin Dose 200 MG; Start 03/24/18 at 20:00 Apixaban (Eliquis) 5 mg BID PO Last administered on 03/27/18 08:11; Admin Dose 5 MG; Start 03/24/18 at 21:00 Atorvastatin [place]cium (Lipitor) 40 mg QHS PO Last administered on 03/26/18 20:12; Admin Dose 40 MG; Start 03/24/18 at 21:00 Digoxin (Digoxin) 0.125 mg DAILY@1300 PO Last administered on 03/26/18 13:06; Admin Dose 0.125 MG; Start 03/25/18 at 13:00 Linagliptin (Tradjenta) 5 mg QHS PO Last administered on 03/26/18 20:15; Admin Dose 5 MG; Start 03/24/18 at 21:00 Primidone (Mysoline) 50 mg HS PO Last administered on 03/26/18 20:15; Admin Dose 50 MG; Start 03/24/18 at 21:00 Tiotropium [place] (Spiriva) 1 inh DAILY INH Last administered on 03/27/18at 08:10; Admin Dose 1 INH; Start 03/25/18 at 09:00 Diagnostic Test (Pha) (Accu-Chek) 1 ea 02 XX ; Start 03/26/18 at 02:00 Insulin Aspart (Novolog Insulin Pen) NOVOLOG *MILD* ALGORITHM WITH MEALS BEDTIM E SC Last administered on 03/27/18 08:19; Admin Dose 1 UNIT; Start 03/25/18 at 11:30 Bumetanide (Bumex) 1 mg BID DIURETICS IV Last administered on 03/27/18 06:03; Admin Dose 1 MG; Start 03/25/18 at 10:00 Guaifenesin (Robitussin Liquid Cup) 200 mg Q4H PRN PO COUGH; Start 03/25/18 at 10:00 Miscellaneous Information 1 ea NOTE XX ; Start 03/25/18 at 10:30 Glucose (Glutose) 15 gm Q15M PRN PO DECREASED GLUCOSE; Start 03/25/18 at 10:30 Glucose (Glutose) 22.5 gm Q15M PRN PO DECREASED GLUCOSE; Start 03/25/18 at 10:30 Dextrose (D50w Syringe) 25 ml Q15M PRN IV DECREASED GLUCOSE; Start 03/25/18 at 10:30 Dextrose (D50w Syringe) 50 ml Q15M PRN IV DECREASED GLUCOSE; Start 03/25/18 at 10:30 Glucagon (Glucagen) 1 mg Q15M PRN IM DECREASED GLUCOSE; Start 03/25/18 at 10:30 Glucose (Glutose) 15 gm Q15M PRN BUCCAL DECREASED GLUCOSE; Start 03/25/18 at 10:30 Cefepime HCl 50 ml @ 100 mls/hr Q12 IVPB Last administered on 03/27/18at 08:11; Admin Dose 100 MLS/HR; Start 03/26/18 at 10:30 Levofloxacin/ Dextrose 100 ml @ 100 mls/hr Q24H IVPB Last administered on 03/27/18at 08:11; Admin Dose 100 MLS/HR; Start 03/26/18 at 09:30 Metoprolol Tartrate (Lopressor) 12.5 mg BID PO Last administered on 03/26/18at 20:13; Admin Dose 12.5 MG; Start 03/26/18 at 21:00 MAGALYS CHAPIN Mar 27, 2018 11:20
[2018-03-27] MEDS: DIGOXIN 0.125 MG TAB PO SCH (12:03)
--- NOTE | 2018-03-27 12:50 | CONS ---
Date/Time of Note Date/Time of Note DATE: 03/27/18 TIME: 12:48 Assessment/Plan Assessment/Plan Assessment/Plan Respiratory failure Acute decompensated diastolic congestive heart failure Pneumonia Preserved ejection fraction Chronic atrial fibrillation Obesity hypoventilation syndrome -Shortness of breath is improving, initial plans were Bumex drip today but given blood pressure in the lower side, would hold off. If blood pressure tolerates, would adjust Bumex to 3 times daily dosing. Maintain potassium above 4.0 and magnesium above 2.0. Result Diagram: 03/27/18 1039 03/27/18 1039 Results 24hrs Laboratory Tests Test 03/26/18 16:18 03/26/18 20:11 03/27/18 02:26 03/27/18 08:09 Bedside Glucose 115 205 258 H 159 Test 03/27/18 10:39 03/27/18 12:04 White Blood Count 9.9 Red Blood Count 4.23 Hemoglobin 12.4 Hematocrit 41.1 Mean Corpuscular Volume 97.2 Mean Corpuscular 29.3 Hemoglobin Mean Corpuscular 30.2 L Hemoglobin Concent Red Cell Distribution 17.2 H Width Platelet Count 225 Mean Platelet Volume 9.7 Immature Granulocytes % 0.600 H Neutrophils % 78.9 H Lymphocytes % 9.9 L Monocytes % 8.1 Eosinophils % 2.1 Basophils % 0.4 Nucleated Red Blood 0.0 Cells % Immature Granulocytes # 0.060 H Neutrophils # 7.8 H Lymphocytes # 1.0 Monocytes # 0.8 Eosinophils # 0.2 Basophils # 0.0 Nucleated Red Blood 0.0 Cells # Sodium Level 139 Potassium Level 3.8 Chloride Level 83 L Carbon Dioxide Level 49 *H Anion Gap 7 Blood Urea Nitrogen 29 H Creatinine 0.86 Est Glomerular Filtrat > 60 Rate mL/min Glucose Level 182 Calcium Level 8.5 Total Bilirubin 0.2 Direct Bilirubin 0.00 Indirect Bilirubin 0.2 Aspartate Amino 21 Transf (AST/SGOT) Alanine 29 Aminotransferase (ALT/SG PT) Alkaline Phosphatase 90 Total Protein 6.7 Albumin 3.5 Globulin 3.20 Albumin/Globulin Ratio 1.09 Bedside Glucose 235 H Consultation Date/Type/Reason Admit Date/Time Mar 24, 2018 at 19:37 Initial Consult Date 03/25/18 Type of Consult cv 24 HR Interval Summary Free Text/Dictation Shortness of breath is better compared to yesterday. Denies palpitations, chest pain or dizziness Exam/Review of Systems Vital Signs Vitals Vital Signs Date Temp Pulse Resp B/P (MAP) Pulse Ox O2 O2 Flow FiO2 Time Delivery Rate 03/27/18 98.2 64 18 105/73 93 11:13 (84) 03/27/18 Nasal 6.0 07:39 Cannula 03/26/18 50 09:06 Intake and Output 03/26/18 03/26/18 03/27/18 1414:59 22:59 06:59 IntakeIntake Total 750 ml 640 ml OutputOutput Total 1600 ml 800 ml BalanceBalance -850 ml -160 ml Exam No apparent distress, speaking in complete sentences Constitutional: alert, oriented, obese Head: normocephalic Respiratory: other (Coarse breath sounds bilaterally, no wheezing) Cardiovascular: irregular rhythm, other (S1-S2 heard) Gastrointestinal: soft, non-tender, bowel sounds Extremities: edema Medications Medications Current Medications Ondansetron HCl (Zofran Inj) 4 mg Q6H PRN IV NAUSEA AND/OR VOMITING; Start 03/24/18 at 20:00 Albuterol/ Ipratropium (Duoneb) 3 ml Q2H RESP THERAPY PRN NEB SHORTNESS OF BREATH Last administered on 03/24/18at 21:18; Admin Dose 3 ML; Start 03/24/18 at 20:00 Amiodarone HCl (Cordarone) 200 mg DAILY PO Last administered on 03/27/18 08:11; Admin Dose 200 MG; Start 03/24/18 at 20:00 Apixaban (Eliquis) 5 mg BID PO Last administered on 03/27/18 08:11; Admin Dose 5 MG; Start 03/24/18 at 21:00 Atorvastatin Calcium (Lipitor) 40 mg QHS PO Last administered on 03/26/18 20:12; Admin Dose 40 MG; Start 03/24/18 at 21:00 Digoxin (Digoxin) 0.125 mg DAILY@1300 PO Last administered on 03/27/18 12:03; Admin Dose 0.125 MG; Start 03/25/18 at 13:00 Linagliptin (Tradjenta) 5 mg QHS PO Last administered on 03/26/18 20:15; Admin Dose 5 MG; Start 03/24/18 at 21:00 Primidone (Mysoline) 50 mg HS PO Last administered on 03/26/18at 20:15; Admin Dose 50 MG; Start 03/24/18 at 21:00 Tiotropium [place] (Spiriva) 1 inh DAILY INH Last administered on 03/27/18at 08:1 0; Admin Dose 1 INH; Start 03/25/18 at 09:00 Diagnostic Test (Pha) (Accu-Chek) 1 ea 02 XX ; Start 03/26/18 at 02:00 Insulin Aspart (Novolog Insulin Pen) NOVOLOG *MILD* ALGORITHM WITH MEALS BEDTIME SC Last administered on 03/27/18at 12:07; Admin Dose 3 UNIT; Start 03/25/18 at 11:30 Bumetanide (Bumex) 1 mg BID DIURETICS IV Last administered on 03/27/18at 06:03; Admin Dose 1 MG; Start 03/25/18 at 10:00 Guaifenesin (Robitussin Liquid Cup) 200 mg Q4H PRN PO COUGH; Start 03/25/18 at 10:00 Miscellaneous Information 1 ea NOTE XX ; Start 03/25/18 at 10:30 Glucose (Glutose) 15 gm Q15M PRN PO DECREASED GLUCOSE; Start 03/25/18 at 10:30 Glucose (Glutose) 22.5 gm Q15M PRN PO DECREASED GLUCOSE; Start 03/25/18 at 10:30 Dextrose (D50w Syringe) 25 ml Q15M PRN IV DECREASED GLUCOSE; Start 03/25/18 at 10:30 Dextrose (D50w Syringe) 50 ml Q15M PRN IV DECREASED GLUCOSE; Start 03/25/18 at 10:30 Glucagon (Glucagen) 1 mg Q15M PRN IM DECREASED GLUCOSE; Start 03/25/18 at 10:30 Glucose (Glutose) 15 gm Q15M PRN BUCCAL DECREASED GLUCOSE; Start 03/25/18 at 10:30 Cefepime HCl 50 ml @ 100 mls/hr Q12 IVPB Last administered on 03/27/18at 08:11; Admin Dose 100 MLS/HR; Start 03/26/18 at 10:30 Levofloxacin/ Dextrose 100 ml @ 100 mls/hr Q24H IVPB Last administered on 03/27/18at 08:11; Admin Dose 100 MLS/HR; Start 03/26/18 at 09:30 Metoprolol Tartrate (Lopressor) 12.5 mg BID PO Last administered on 03/26/18at 20:13; Admin Dose 12.5 MG; Start 03/26/18 at 21:00 Artemio Freeman DO Mar 27, 2018 12:50
--- NOTE | 2018-03-27 17:02 | PN ---
Date/Time of Note Date/Time of Note DATE: 03/27/18 TIME: 16:59 Assessment/Plan VTE Prophylaxis Risk score (from Nsg)>0 risk: 3 SCD applied (from Ns): No SCD contraindicated: other (no) Pharmacological prophylaxis: other (eliquis) Lines/Catheters IV Catheter Type (from [facility]): Peripheral IV Urinary Cath still in place: Yes Reason Cath still needed: other (indicate) (not needed) Assessment/Plan Assessment/Plan 67-year-old female patient with comorbidities including COPD on home oxygen, diastolic heart failure, atrial fibrillation on Eliquis, diabetes mellitus type II, hypertension, pulmonary hypertension and dyslipidemia presented with short ness of breath and found with hypercapnic/hypoxic respiratory failure, likely combination of COPD exacerbation, A-fib with RVR, acute on chronic diastolic CHF and pneumonia # Hypoxic and hypercapnic respiratory failure: Mixed etiology includes HFpEF, OHS/MICHAEL, COPD and cor pulmonale. Likely represents a combination of ADHF and possible LLL pneumonia, although cannot exclude a PE. - Pulmonary is following. - Continue supplemental O2. At home requires 4L, now on HFNC 20L 50%. - Continue bronchodilators. Got IV steroids x1 on admission. - CXR shows increasing patchy infiltrates in the absence of bacterial pneumonia symptoms #Acute pneumonia - Started on cefepime for pneumonia. # Atrial fibrillation with RVR: Currently rate controlled. -For now continue home meds including, amiodarone, digoxin and Eliquis -Holding metoprolol. # COPD exacerbation: Of note ,patient on 4L home oxygen prior to admission. - Pulmonary following - Daily spiriva, prn duonebs. - No steroids. # Acute on chronic diastolic CHF - IV diuresis. Home metoprolol has been held. # Type 2 diabetes with hyperglycemia. A1c is 7.7. -For now continue Tradjenta, insulin sliding scale, monitor sugars # Hypertension: BP within goal. - Continue home meds # Dyslipidemia: Continue statin # Morbid obesity with a BMI of 53 - This appears to be the underlying cause of many of her problems, and she is aware of that fact. - Unfortunately her weight has increased over the course of several h ospitalizations. This may be due to fluid retention from CHF also. - The patient reports skipping meals frequently and eating lower-calorie options as her method for weight loss. Result Diagram: 03/27/18 1039 03/27/18 1039 Subjective 24 Hr Interval Summary Free Text/Dictation No acute overnight events. Patient breathing comfortably on 6L O2. I offered placement at [place] versus [facility]. Patient declined, saying she was dissatisfied with her last stay at both places and would prefer to remain inpatient until she can be discharged home. Exam/Review of Systems Vital Signs Vitals Vital Signs Date Temp Pulse Resp B/P (MAP) Pulse Ox O2 O2 Flow FiO2 Time Delivery Rate 03/27/18 118 16:51 03/27/18 98.2 18 107/78 93 15:17 (88) 03/27/18 Nasal 6.0 07:39 Cannula 03/26/18 50 09:06 Intake and Output 03/26/18 03/26/18 03/27/18 1515:00 23:00 07:00 IntakeIntake Total 750 ml 640 ml 350 ml OutputOutput Total 1600 ml 800 ml 1850 ml BalanceBalance -850 ml -160 ml -1500 ml Exam Gen: Morbidly obese woman sitting in chair HEENT: Clear oropharynx, nasal cannula Card: Irregularly irregular, no murmurs Pulm: Inspiratory wheezes throughout. Diminished bibasilar breath sounds L>R with rales. Abd: Obese, distended, soft, nontender. Well healed suprapubic surgical scar. Ext: No LE edema Skin: Several skin tags along upper chest and back. Chronic LE venous stasis changes. Medications Medications Current Medications Ondansetron HCl (Zofran Inj) 4 mg Q6H PRN IV NAUSEA AND/OR VOMITING; Start 03/24/18 at 20:00 Albuterol/ Ipratropium (Duoneb) 3 ml Q2H RESP THERAPY PRN NEB SHORTNESS OF BREATH Last administered on 03/24/18at 21:18; Admin Dose 3 ML; Start 03/24/18 at 20:00 Amiodarone HCl (Cordarone) 200 mg DAILY PO Last administered on 03/27/18at 08:11; Admin Dose 200 MG; Start 03/24/18 at 20:00 Apixaban (Eliquis) 5 mg BID PO Last administered on 03/27/18at 08:11; Admin Dose 5 MG; Start 03/24/18 at 21:00 Atorvastatin Calcium (Lipitor) 40 mg QHS PO Last administered on 03/26/18 20:12; Admin Dose 40 MG; Start 03/24/18 at 21:00 Digoxin (Digoxin) 0.125 mg DAILY@1300 PO Last administered on 03/27/18 12:03; Admin Dose 0.125 MG; Start 03/25/18 at 13:00 Linagliptin (Tradjenta) 5 mg QHS PO Last administered on 03/26/18 20:15; Admin Dose 5 MG; Start 03/24/18 at 21:00 Primidone (Mysoline) 50 mg HS PO Last administered on 03/26/18 20:15; Admin Dose 50 MG; Start 03/24/18 at 21:00 Tiotropium [place] (Spiriva) 1 inh DAILY INH Last administered on 03/27/18 08:10; Admin Dose 1 INH; Start 03/25/18 at 09:00 Diagnostic Test (Pha) (Accu-Chek) 1 ea 02 XX ; Start 03/26/18 at 02:00 Insulin Aspart (Novolog Insulin Pen) NOVOLOG *MILD* ALGORITHM WITH MEALS BEDTIME SC Last administered on 03/27/18 12:07; Admin Dose 3 UNIT; Start 03/25/18 at 11:30 Guaifenesin (Robitussin Liquid Cup) 200 mg Q4H PRN PO COUGH; Start 03/25/18 at 10:00 Miscellaneous Information 1 ea NOTE XX ; Start 03/25/18 at 10:30 Glucose (Glutose) 15 gm Q15M PRN PO DECREASED GLUCOSE; Start 03/25/18 at 10:30 Glucose (Glutose) 22.5 gm Q15M PRN PO DECREASED GLUCOSE; Start 03/25/18 at 10:30 Dextrose (D50w Syringe) 25 ml Q15M PRN IV DECREASED GLUCOSE; Start 03/25/18 at 10:30 Dextrose (D50w Syringe) 50 ml Q15M PRN IV DECREASED GLUCOSE; Start 03/25/18 at 10:30 Glucagon (Glucagen) 1 mg Q15M PRN IM DECREASED GLUCOSE; Start 03/25/18 at 10:30 Glucose (Glutose) 15 gm Q15M PRN BUCCAL DECREASED GLUCOSE; Start 03/25/18 at 10:30 Cefepime HCl 50 ml @ 100 mls/hr Q12 IVPB Last administered on 03/27/18 08:11; Admin Dose 100 MLS/HR; Start 03/26/18 at 10:30 Levofloxacin/ Dextrose 100 ml @ 100 mls/hr Q24H IVPB Last administered on 03/27/18at 08:11; Admin Dose 100 MLS/HR; Start 03/26/18 at 09:30 Metoprolol Tartrate (Lopressor) 12.5 mg BID PO Last administered on 03/26/18at 20:13; Admin Dose 12.5 MG; Start 03/26/18 at 21:00 Bumetanide (Bumex) 1 mg TID IV Last administered on 03/27/18at 14:07; Admin Dose 1 MG; Start 03/27/18 at 13:00 BERE NEVILLE MD Mar 27, 2018 17:02
[2018-03-27] MEDS: ATORVASTATIN 40 MG TAB PO SCH (20:44)
[2018-03-27] MEDS: LINAGLIPTIN 5 MG TABLET PO SCH (20:44)
[2018-03-27] MEDS: PRIMIDONE 50 MG TAB PO SCH (20:45)
[2018-03-28] VITALS (10 sets, daily range): BP systolic 97–115; BP diastolic 57–70; PULSE 73–101; RESP 18–20; Ht 172.7 cm; Wt 160.0 kg
[2018-03-28] MEDS: ACCU-CHEK XX SCH (02:00)
[2018-03-28] MEDS: TIOTROPIUM 18 MCG CAPSULE INHA DEV INH SCH (07:49)
[2018-03-28] MEDS: METOPROLOL 25 MG TAB PO SCH ×2 (07:49→21:13)
[2018-03-28] MEDS: APIXABAN 5 MG TABLET PO SCH ×2 (07:49→21:12)
[2018-03-28] MEDS: AMIODARONE 200 MG TAB PO SCH (07:49)
[2018-03-28] MEDS: CEFEPIME 1GM/50 ML (PMX) 50 ML IVPB SCH ×2 (07:50→21:11)
[2018-03-28] MEDS: LEVOFLOXACIN 500MG/D5W (PMX) 100 ML IVPB SCH (07:50)
[2018-03-28] MEDS: BUMETANIDE 1 MG INJ IV SCH ×3 (07:50→17:09)
[2018-03-28] MEDS: INSULIN ASPART [NOVOLOG] 3 ML PEN SC SCH ×4 (08:04→20:20)
--- NOTE | 2018-03-28 11:11 | CONS ---
Date/Time of Note Date/Time of Note DATE: 03/28/18 TIME: 11:09 Assessment/Plan Assessment/Plan Assessment/Plan Assessment and recommendations; 1. Patient admitted with hypoxemic and hypercapnic respiratory failure due to underlying obesity/hypoventilation syndrome and sleep apnea. Compounded by CHF. 2. Likely left lower lobe pneumonia, clinically improving on current antimicrobial regimen. 3. Chronic atrial fibrillation. Continue current supportive care. Will obtain follow-up chest x-ray 24 hours. Result Diagram: 03/28/18 0604 03/28/18 0604 Results 24hrs Laboratory Tests Test 03/27/18 12:04 03/27/18 17:00 03/27/18 20:26 03/28/18 06:04 Bedside Glucose 235 H 195 253 H White Blood Count 7.8 # Red Blood Count 4.48 Hemoglobin 13.0 Hematocrit 44.0 Mean Corpuscular Volume 98.2 Mean Corpuscular 29.0 Hemoglobin Mean Corpuscular 29.5 L Hemoglobin Concent Red Cell Distribution 17.0 H Width Platelet Count 219 Mean Platelet Volume 9.7 Immature Granulocytes % 0.500 H Neutrophils % 76.0 Lymphocytes % 13.7 L Monocytes % 7.4 Eosinophils % 2.0 Basophils % 0.4 Nucleated Red Blood 0.0 Cells % Immature Granulocytes # 0.040 H Neutrophils # 5.9 Lymphocytes # 1.1 Monocytes # 0.6 Eosinophils # 0.2 Basophils # 0.0 Nucleated Red Blood 0.0 Cells # Sodium Level 140 Potassium Level 4.3 Chloride Level 82 L Carbon Dioxide Level 50 *H Anion Gap 8 Blood Urea Nitrogen 25 H Creatinine 0.83 Est Glomerular Filtrat > 60 Rate mL/min Glucose Level 170 Calcium Level 8.4 Phosphorus Level 4.1 Magnesium Level 1.9 Test 03/28/18 07:47 Bedside Glucose 171 Consultation Date/Type/Reason Admit Date/Time Mar 24, 2018 at 19:37 Initial Consult Date 03/25/18 Type of Consult Pulmonary 24 HR Interval Summary Free Text/Dictation Patient's condition is continually improving. Denies any shortness of breath at rest. Any chest congestion, wheezing, sputum production. General exam; elderly female, awake and alert. Currently in no distress. Exam/Review of Systems Vital Signs Vitals Vital Signs Date Temp Pulse Resp B/P (MAP) Pulse Ox O2 O2 Flow FiO2 Time Delivery Rate 03/28/18 100 6.0 09:37 03/28/18 94 08:50 03/28/18 Nasal 08:00 Cannula 03/28/18 97.5 18 113/70 07:29 (84) 03/28/18 39 03:36 Intake and Output 03/27/18 03/27/18 03/28/18 1515:00 23:00 07:00 IntakeIntake Total 600 ml 250 ml OutputOutput Total 1800 ml 2100 ml BalanceBalance -1200 ml -1850 ml Exam H EENT exam; supple neck, positive JVD. No lymphadenopathy. Midline trachea. No thyromegaly. Patient has few remaining carious teeth. Chest exam; diminished breath sounds bilaterally. S1-S2 audible, no murmurs. Irregular rhythm. Abdomen exam; soft, protuberant. Bowel sounds audible. Nontender. Extremity exam; trace lower extremity edema. [employer] exam; no focal deficit. Medications Medications Current Medications Ondansetron HCl (Zofran Inj) 4 mg Q6H PRN IV NAUSEA AND/OR VOMITING; Start 03/24/18 at 20:00 Albuterol/ Ipratropium (Duoneb) 3 ml Q2H RESP THERAPY PRN NEB SHORTNESS OF BREATH Last administered on 03/24/18 21:18; Admin Dose 3 ML; Start 03/24/18 at 20:00 Amiodarone HCl (Cordarone) 200 mg DAILY PO Last administered on 03/28/18 07:49; Admin Dose 200 MG; Start 03/24/18 at 20:00 Apixaban (Eliquis) 5 mg BID PO Last administered on 03/28/18 07:49; Admin Dose 5 MG; Start 03/24/18 at 21:00 Atorvastatin Calcium (Lipitor) 40 mg QHS PO Last administered on 03/27/18 20:44; Admin Dose 40 MG; Start 03/24/18 at 21:00 Digoxin (Digoxin) 0.125 mg DAILY@1300 PO Last administered on 03/27/18at 12:03; Admin Dose 0.125 MG; Start 03/25/18 at 13:00 Linagliptin (Tradjenta) 5 mg QHS PO Last administered on 03/27/18 20:44; Admin Dose 5 MG; Start 03/24/18 at 21:00 Primidone (Mysoline) 50 mg HS PO Last administered on 03/27/18at 20:45; Admin Dose 50 MG; Start 03/24/18 at 21:00 Tiotropium [place] (Spiriva) 1 inh DAILY INH Last administered on 03/28/18at 07 :49; Admin Dose 1 INH; Start 03/25/18 at 09:00 Diagnostic Test (Pha) (Accu-Chek) 1 ea 02 XX ; Start 03/26/18 at 02:00 Insulin Aspart (Novolog Insulin Pen) NOVOLOG *MILD* ALGORITHM WITH MEALS BEDTIME SC Last administered on 03/28/18at 08:04; Admin Dose 1 UNIT; Start 03/25/18 at 11:30 Guaifenesin (Robitussin Liquid Cup) 200 mg Q4H PRN PO COUGH; Start 03/25/18 at 10:00 Miscellaneous Information 1 ea NOTE XX ; Start 03/25/18 at 10:30 Glucose (Glutose) 15 gm Q15M PRN PO DECREASED GLUCOSE; Start 03/25/18 at 10:30 Glucose (Glutose) 22.5 gm Q15M PRN PO DECREASED GLUCOSE; Start 03/25/18 at 10:30 Dextrose (D50w Syringe) 25 ml Q15M PRN IV DECREASED GLUCOSE; Start 03/25/18 at 10:30 Dextrose (D50w Syringe) 50 ml Q15M PRN IV DECREASED GLUCOSE; Start 03/25/18 at 10:30 Glucagon (Glucagen) 1 mg Q15M PRN IM DECREASED GLUCOSE; Start 03/25/18 at 10:30 Glucose (Glutose) 15 gm Q15M PRN BUCCAL DECREASED GLUCOSE; Start 03/25/18 at 10:30 Cefepime HCl 50 ml @ 100 mls/hr Q12 IVPB Last administered on 03/28/18at 07:50; Admin Dose 100 MLS/HR; Start 03/26/18 at 10:30 Levofloxacin/ Dextrose 100 ml @ 100 mls/hr Q24H IVPB Last administered on 03/28/18at 07:50; Admin Dose 100 MLS/HR; Start 03/26/18 at 09:30 Metoprolol Tartrate (Lopressor) 12.5 mg BID PO Last administered on 03/28/18at 07:49; Admin Dose 12.5 MG; Start 03/26/18 at 21:00 Bumetanide (Bumex) 1 mg TID IV Last administered on 03/28/18at 07:50; Admin Dose 1 MG; Start 03/27/18 at 13:00 MAGALYS CHAPIN Mar 28, 2018 11:11
[2018-03-28] MEDS: DIGOXIN 0.125 MG TAB PO SCH (12:15)
--- NOTE | 2018-03-28 13:31 | CONS ---
Date/Time of Note Date/Time of Note DATE: 03/28/18 TIME: 13:29 Assessment/Plan Assessment/Plan Assessment/Plan Respiratory failure Acute decompensated diastolic congestive heart failure Pneumonia Preserved ejection fraction Chronic atrial fibrillation Obesity hypoventilation syndrome -Shortness of breath is improving, given blood pressure on the lower side, would adjust holding settings and switch Bumex to twice daily. Maintain potassium above 4.0 and magnesium above 2.0. Result Diagram: 03/28/18 0604 03/28/18 0604 Results 24hrs Laboratory Tests Test 03/27/18 17:00 03/27/18 20:26 03/28/18 06:04 03/28/18 07:47 Bedside Glucose 195 253 H 171 White Blood Count 7.8 # Red Blood Count 4.48 Hemoglobin 13.0 Hematocrit 44.0 Mean Corpuscular Volume 98.2 Mean Corpuscular 29.0 Hemoglobin Mean Corpuscular 29.5 L Hemoglobin Concent Red Cell Distribution 17.0 H Width Platelet Count 219 Mean Platelet Volume 9.7 Immature Granulocytes % 0.500 H Neutrophils % 76.0 Lymphocytes % 13.7 L Monocytes % 7.4 Eosinophils % 2.0 Basophils % 0.4 Nucleated Red Blood 0.0 Cells % Immature Granulocytes # 0.040 H Neutrophils # 5.9 Lymphocytes # 1.1 Monocytes # 0.6 Eosinophils # 0.2 Basophils # 0.0 Nucleated Red Blood 0.0 Cells # Sodium Level 140 Potassium Level 4.3 Chloride Level 82 L Carbon Dioxide Level 50 *H Anion Gap 8 Blood Urea Nitrogen 25 H Creatinine 0.83 Est Glomerular Filtrat > 60 Rate mL/min Glucose Level 170 Calcium Level 8.4 Phosphorus Level 4.1 Magnesium Level 1.9 Test 03/28/18 12:14 Bedside Glucose 304 H Consultation Date/Type/Reason Admit Date/Time Mar 24, 2018 at 19:37 Initial Consult Date 03/25/18 Type of Consult cv 24 HR Interval Summary Free Text/Dictation Feeling better, less shortness of breath, denies chest pain or palpitations Exam/Review of Systems Vital Signs Vitals Vital Signs Date Temp Pulse Resp B/P (MAP) Pulse Ox O2 O2 Flow FiO2 Time Delivery Rate 03/28/18 90 12:29 03/28/18 97.6 18 97/57 (70) 92 Nasal 11:23 Cannula 03/28/18 6.0 09:37 03/28/18 39 03:36 Intake and Output 03/27/18 03/27/18 03/28/18 1515:00 23:00 07:00 IntakeIntake Total 600 ml 250 ml OutputOutput Total 1800 ml 2100 ml BalanceBalance -1200 ml -1850 ml Exam Constitutional: alert, oriented, obese Head: normocephalic Respiratory: other (Coarse breath sounds bilaterally, no wheezing) Cardiovascular: irregular rhythm, other (S1-S2 heard) Gastrointestinal: soft, non-tender, bowel sounds Extremities: edema Medications Medications Current Medications Ondansetron HCl (Zofran Inj) 4 mg Q6H PRN IV NAUSEA AND/OR VOMITING; Start 03/24/18 at 20:00 Albuterol/ Ipratropium (Duoneb) 3 ml Q2H RESP THERAPY PRN NEB SHORTNESS OF BREATH Last administered on 03/24/18 21:18; Admin Dose 3 ML; Start 03/24/18 at 20:00 Amiodarone HCl (Cordarone) 200 mg DAILY PO Last administered on 03/28/18 07:49; Admin Dose 200 MG; Start 03/24/18 at 20:00 Apixaban (Eliquis) 5 mg BID PO Last administered on 03/28/18 07:49; Admin Dose 5 MG; Start 03/24/18 at 21:00 Atorvastatin Calcium (Lipitor) 40 mg QHS PO Last administered on 03/27/18 20:44; Admin Dose 40 MG; Start 03/24/18 at 21:00 Digoxin (Digoxin) 0.125 mg DAILY@1300 PO Last administered on 03/28/18 12:15; Admin Dose 0.125 MG; Start 03/25/18 at 13:00 Linagliptin (Tradjenta) 5 mg QHS PO Last administered on 03/27/18 20:44; Admin Dose 5 MG; Start 03/24/18 at 21:00 Primidone (Mysoline) 50 mg HS PO Last administered on 03/27/18 20:45; Admin Dose 50 MG; Start 03/24/18 at 21:00 Tiotropium [place] (Spiriva) 1 inh DAILY INH Last administered on 03/28/18 07:49; Admin Dose 1 INH; Start 03/25/18 at 09:00 Diagnostic Test (Pha) (Accu-Chek) 1 ea 02 XX ; Start 03/26/18 at 02:00 Insulin Aspart (Novolog Insulin Pen) NOVOLOG *MILD* ALGORITHM WITH MEALS BEDTIME SC Last administered on 03/28/18at 12:18; Admin Dose 5 UNIT; Start 03/25/18 at 11:30 Guaifenesin (Robitussin Liquid Cup) 200 mg Q4H PRN PO COUGH; Start 03/25/18 at 10:00 Miscellaneous Information 1 ea NOTE XX ; Start 03/25/18 at 10:30 Glucose (Glutose) 15 gm Q15M PRN PO DECREASED GLUCOSE; Start 03/25/18 at 10:30 Glucose (Glutose) 22.5 gm Q15M PRN PO DECREASED GLUCOSE; Start 03/25/18 at 10:30 Dextrose (D50w Syringe) 25 ml Q15M PRN IV DECREASED GLUCOSE; Start 03/25/18 at 10:30 Dextrose (D50w Syringe) 50 ml Q15M PRN IV DECREASED GLUCOSE; Start 03/25/18 at 10:30 Glucagon (Glucagen) 1 mg Q15M PRN IM DECREASED GLUCOSE; Start 03/25/18 at 10:30 Glucose (Glutose) 15 gm Q15M PRN BUCCAL DECREASED GLUCOSE; Start 03/25/18 at 10:30 Cefepime HCl 50 ml @ 100 mls/hr Q12 IVPB Last administered on 03/28/18at 07:50; Admin Dose 100 MLS/HR; Start 03/26/18 at 10:30 Levofloxacin/ Dextrose 100 ml @ 100 mls/hr Q24H IVPB Last administered on 03/28/18at 07:50; Admin Dose 100 MLS/HR; Start 03/26/18 at 09:30 Metoprolol Tartrate (Lopressor) 12.5 mg BID PO Last administered on 03/28/18at 07:49; Admin Dose 12.5 MG; Start 03/26/18 at 21:00 Bumetanide (Bumex) 1 mg TID IV Last administered on 03/28/18at 07:50; Admin Dose 1 MG; Start 03/27/18 at 13:00 Artemio Freeman DO Mar 28, 2018 13:31
--- NOTE | 2018-03-28 17:47 | PN ---
Date/Time of Note Date/Time of Note DATE: 03/28/18 TIME: 17:45 Assessment/Plan VTE Prophylaxis Risk score (from Nsg)>0 risk: 5 SCD applied (from Nsg): No SCD contraindicated: other (no) Pharmacological prophylaxis: NA/contraindicated Pharm contraindication: low risk/ambulating Lines/Catheters IV Catheter Type (from [facility]): Peripheral IV Urinary Cath still in place: Yes Reason Cath still needed: other (indicate) (diuresing) Assessment/Plan Assessment/Plan 67-year-old female patient with comorbidities including COPD on home oxygen, diastolic heart failure, atrial fibrillation on Eliquis, diabetes mellitus type II, hypertension, pulmonary hypertension and dyslipidemia presented with shortness of breath and found with hypercapnic/hypoxic respiratory failure, likely combination of COPD exacerbation, A-fib with RVR, acute on chronic diastolic CHF and pneumonia # Hypoxic and hypercapnic respiratory failure: Mixed etiology includes HFpEF, OHS/MICHAEL, COPD and cor pulmonale. Likely represents a combination of ADHF and possible LLL pneumonia, although cannot exclude a PE. - Pulmonary is following. - Continue supplemental O2. At home requires 4L, now on HFNC 20L 50%. - Continue bronchodilators. Got IV steroids x1 on admission. - CXR shows increasing patchy infiltrates in the absence of bacterial pneumo sheryl symptoms #Acute pneumonia - Started on cefepime for pneumonia. # Atrial fibrillation with RVR: Currently rate controlled. -For now continue home meds including, amiodarone, digoxin and Eliquis -Holding metoprolol. # COPD exacerbation: Of note ,patient on 4L home oxygen prior to admission. - Pulmonary following - Daily spiriva, prn duonebs. - No steroids. # Acute on chronic diastolic CHF - IV diuresis. Home metoprolol has been held. # Type 2 diabetes with hyperglycemia. A1c is 7.7. -For now continue Tradjenta, insulin sliding scale, monitor sugars # Hypertension: BP within goal. - Continue home meds # Dyslipidemia: Continue statin # Morbid obesity with a BMI of 53 - This appears to be the underlying cause of many of her problems, and she is aware of that fact. - Unfortunately her weight has increased over the course of several hospitalizations. This may be due to fluid retention from CHF also. - The patient reports skipping meals frequently and eating lower-calorie options as her method for weight loss. Result Diagram: 03/28/18 0604 03/28/18 0604 Results 24hrs Subjective 24 Hr Interval Summary Free Text/Dictation No acute overnight events. Patient doing well. On 6L NC. She still is slightly too fatigued to go home. Exam/Review of Systems Vital Signs Vitals Vital Signs Date Temp Pulse Resp B/P (MAP) Pulse Ox O2 O2 Flow FiO2 Time Delivery Rate 03/28/18 76 16:20 03/28/18 98.0 18 114/67 95 Nasal 15:05 (83) Cannula 03/28/18 6.0 09:37 03/28/18 39 03:36 Intake and Output 03/27/18 03/27/18 03/28/18 1515:00 23:00 07:00 IntakeIntake Total 600 ml 250 ml OutputOutput Total 1800 ml 2100 ml BalanceBalance -1200 ml -1850 ml Exam Gen: Morbidly obese woman sitting in chair HEENT: Clear oropharynx, nasal cannula Card: Irregularly irregular, no murmurs Pulm: Inspiratory wheezes throughout. Diminished bibasilar breath sounds L>R with rales. Abd: Obese, distended, soft, nontender. Well healed suprapubic surgical scar. Ext: No LE edema Skin: Several skin tags along upper chest and back. Chronic LE venous stasis changes. Medications Medications Current Medications Ondansetron HCl (Zofran Inj) 4 mg Q6H PRN IV NAUSEA AND/OR VOMITING; Start 03/24/18 at 20:00 Albuterol/ Ipratropium (Duoneb) 3 ml Q2H RESP THERAPY PRN NEB SHORTNESS OF BREATH Last administered on 03/24/18at 21:18; Admin Dose 3 ML; Start 03/24/18 at 20:00 Amiodarone HCl (Cordarone) 200 mg DAILY PO Last administered on 03/28/18at 07:49; Admin Dose 200 MG; Start 03/24/18 at 20:00 Apixaban (Eliquis) 5 mg BID PO Last administered on 03/28/18at 07:49; Admin Dose 5 MG; Start 03/24/18 at 21:00 Atorvastatin Calcium (Lipitor) 40 mg QHS PO Last administered on 03/27/18at 20:44; Admin Dose 40 MG; Start 03/24/18 at 21:00 Digoxin (Digoxin) 0.125 mg DAILY@1300 PO Last administered on 03/28/18at 12:15; Admin Dose 0.125 MG; Start 03/25/18 at 13:00 Linagliptin (Tradjenta) 5 mg QHS PO Last administered on 03/27/18at 20:44; Admin Dose 5 MG; Start 03/24/18 at 21:00 Primidone (Mysoline) 50 mg HS PO Last administered on 03/27/18at 20:45; Admin Dose 50 MG; Start 03/24/18 at 21:00 Tiotropium [place] (Spiriva) 1 inh DAILY INH Last administered on 03/28/18at 07:49; Admin Dose 1 INH; Start 03/25/18 at 09:00 Diagnostic Test (Pha) (Accu-Chek) 1 ea 02 XX ; Start 03/26/18 at 02:00 Insulin Aspart (Novolog Insulin Pen) NOVOLOG *MILD* ALGORITHM WITH MEALS BEDT DOUG SC Last administered on 03/28/18at 17:14; Admin Dose 1 UNIT; Start 03/25/18 at 11:30 Guaifenesin (Robitussin Liquid Cup) 200 mg Q4H PRN PO COUGH; Start 03/25/18 at 10:00 Miscellaneous Information 1 ea NOTE XX ; Start 03/25/18 at 10:30 Glucose (Glutose) 15 gm Q15M PRN PO DECREASED GLUCOSE; Start 03/25/18 at 10:30 Glucose (Glutose) 22.5 gm Q15M PRN PO DECREASED GLUCOSE; Start 03/25/18 at 10:30 Dextrose (D50w Syringe) 25 ml Q15M PRN IV DECREASED GLUCOSE; Start 03/25/18 at 10:30 Dextrose (D50w Syringe) 50 ml Q15M PRN IV DECREASED GLUCOSE; Start 03/25/18 at 10:30 Glucagon (Glucagen) 1 mg Q15M PRN IM DECREASED GLUCOSE; Start 03/25/18 at 10:30 Glucose (Glutose) 15 gm Q15M PRN BUCCAL DECREASED GLUCOSE; Start 03/25/18 at 10:30 Cefepime HCl 50 ml @ 100 mls/hr Q12 IVPB Last administered on 03/28/18at 07:50; Admin Dose 100 MLS/HR; Start 03/26/18 at 10:30 Levofloxacin/ Dextrose 100 ml @ 100 mls/hr Q24H IVPB Last administered on 03/28/18at 07:50; Admin Dose 100 MLS/HR; Start 03/26/18 at 09:30 Metoprolol Tartrate (Lopressor) 12.5 mg BID PO Last administered on 03/28/18at 07:49; Admin Dose 12.5 MG; Start 03/26/18 at 21:00 Bumetanide (Bumex) 1 mg BID DIURETICS IV Last administered on 03/28/18at 17:09; Admin Dose 1 MG; Start 03/28/18 at 18:00 BERE NEVILLE MD Mar 28, 2018 17:47
[2018-03-28] MEDS: ATORVASTATIN 40 MG TAB PO SCH (21:12)
[2018-03-28] MEDS: PRIMIDONE 50 MG TAB PO SCH (21:12)
[2018-03-28] MEDS: LINAGLIPTIN 5 MG TABLET PO SCH (21:12)
[2018-03-29] VITALS (12 sets, daily range): BP systolic 92–114; BP diastolic 54–62; PULSE 71–122; RESP 18–20
[2018-03-29] MEDS: ACCU-CHEK XX SCH (02:18)
[2018-03-29] MEDS: BUMETANIDE 1 MG INJ IV SCH ×2 (06:25→17:23)
[2018-03-29] MEDS: INSULIN ASPART [NOVOLOG] 3 ML PEN SC SCH ×4 (07:51→21:01)
[2018-03-29] MEDS ORDERED: POTASSIUM CHLORIDE 20 MEQ POWDER FOR ORAL SOLN PO ONE (08:30)
[2018-03-29] MEDS: TIOTROPIUM 18 MCG CAPSULE INHA DEV INH SCH (08:46)
[2018-03-29] MEDS: APIXABAN 5 MG TABLET PO SCH ×2 (08:47→20:40)
[2018-03-29] MEDS: AMIODARONE 200 MG TAB PO SCH (08:47)
[2018-03-29] MEDS: CEFEPIME 1GM/50 ML (PMX) 50 ML IVPB SCH ×2 (08:48→20:40)
[2018-03-29] MEDS: METOPROLOL 25 MG TAB PO SCH ×2 (08:48→20:42)
[2018-03-29] MEDS: LEVOFLOXACIN 500MG/D5W (PMX) 100 ML IVPB SCH (09:43)
--- NOTE | 2018-03-29 11:02 | CONS ---
Date/Time of Note Date/Time of Note DATE: 03/29/18 TIME: 11:00 Assessment/Plan Assessment/Plan Assessment/Plan Assessment and recommendations; 1. Patient admitted with CHF exacerbation with left lower lobe pneumonia, c linically improving. 2. Chronic atrial fibrillation. 3. COPD. 4. Underlying sleep apnea. 5. History of hypertension. Continue current supportive care. Patient responding well to current treatment regimen. Consider discharge. Patient does have home oxygen. I would recommend discharging her on combination of Levaquin and doxycycline for 1 week. Result Diagram: 03/29/18 0514 03/29/18 0514 Results 24hrs Laboratory Tests Test 03/28/18 12:14 03/28/18 17:10 03/28/18 20:15 03/29/18 02:58 Bedside Glucose 304 H 159 251 H 199 Test 03/29/18 05:14 03/29/18 07:44 White Blood Count 9.6 # Red Blood Count 4.28 Hemoglobin 12.5 Hematocrit 41.5 Mean Corpuscular 97.0 Volume Mean Corpuscular 29.2 Hemoglobin Mean Corpuscular 30.1 L Hemoglobin Concent Red Cell Distribution 17.0 H Width Platelet Count 216 Mean Platelet Volume 9.7 Immature Granulocytes 0.800 H % Neutrophils % 74.5 Lymphocytes % 14.2 L Monocytes % 7.8 Eosinophils % 2.3 Basophils % 0.4 Nucleated Red Blood 0.0 Cells % Immature Granulocytes 0.080 H # Neutrophils # 7.2 Lymphocytes # 1.4 Monocytes # 0.8 Eosinophils # 0.2 Basophils # 0.0 Nucleated Red Blood 0.0 Cells # Sodium Level 139 Potassium Level 3.7 Chloride Level 86 L Carbon Dioxide Level 43 *H Anion Gap 10 Blood Urea Nitrogen 23 H Creatinine 0.80 Est Glomerular > 60 Filtrat Rate mL/min Glucose Level 194 Calcium Level 8.6 Bedside Glucose 201 Consultation Date/Type/Reason Admit Date/Time Mar 24, 2018 at 19:37 Initial Consult Date 03/25/18 Type of Consult Pulmonary 24 HR Interval Summary Free Text/Dictation Patient's condition is stable. Remains awake and alert. Denies any shortness of breath at rest. General exam; elderly female, awake and alert. Currently in no distress. Exam/Review of Systems Vital Signs Vitals Vital Signs Date Temp Pulse Resp B/P (MAP) Pulse Ox O2 O2 Flow FiO2 Time Delivery Rate 03/29/18 107 09:11 03/29/18 Nasal 4.0 07:56 Cannula 03/29/18 97.3 18 95/61 (72) 90 07:35 03/28/18 39 03:36 Intake and Output 03/28/18 03/28/18 03/29/18 1515:00 23:00 07:00 IntakeIntake Total 50 ml 800 ml OutputOutput Total 1350 ml BalanceBalance 50 ml -550 ml Exam H EENT exam; supple neck, positive JVD. No lymphadenopathy. Midline trachea. No thyromegaly. Patient has few remaining carious teeth. Chest exam; diminished breath sounds bilaterally. S1-S2 audible, no murmurs. Irregular rhythm. Abdomen exam; soft, protuberant. Nontender. Bowel sounds audible. Organomegaly difficult to assess. Extremity exam; no peripheral edema. 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 Medications Medications Current Medications Ondansetron HCl (Zofran Inj) 4 mg Q6H PRN IV NAUSEA AND/OR VOMITING; Start 03/24/18 at 20:00 Albuterol/ Ipratropium (Duoneb) 3 ml Q2H RESP THERAPY PRN NEB SHORTNESS OF BREATH Last administered on 03/24/18at 21:18; Admin Dose 3 ML; Start 03/24/18 at 20 :00 Amiodarone HCl (Cordarone) 200 mg DAILY PO Last administered on 03/29/18 08:47; Admin Dose 200 MG; Start 03/24/18 at 20:00 Apixaban (Eliquis) 5 mg BID PO Last administered on 03/29/18 08:47; Admin Dose 5 MG; Start 03/24/18 at 21:00 Atorvastatin Calcium (Lipitor) 40 mg QHS PO Last administered on 03/28/18 21:12; Admin Dose 40 MG; Start 03/24/18 at 21:00 Digoxin (Digoxin) 0.125 mg DAILY@1300 PO Last administered on 03/28/18 12:15; Admin Dose 0.125 MG; Start 03/25/18 at 13:00 Linagliptin (Tradjenta) 5 mg QHS PO Last administered on 03/28/18 21:12; Admin Dose 5 MG; Start 03/24/18 at 21:00 Primidone (Mysoline) 50 mg HS PO Last administered on 03/28/18at 21:12; Admin Dose 50 MG; Start 03/24/18 at 21:00 Tiotropium [place] (Spiriva) 1 inh DAILY INH Last administered on 03/29/18at 08:46; Admin Dose 1 INH; Start 03/25/18 at 09:00 Diagnostic Test (Pha) (Accu-Chek) 1 ea 02 XX Last administered on 03/29/18at 02:18; Admin Dose 1 EA; Start 03/26/18 at 02:00 Insulin Aspart (Novolog Insulin Pen) NOVOLOG *MILD* ALGORITHM WITH MEALS BEDTIME SC Last administered on 03/29/18 07:51; Admin Dose 2 UNIT; Start 03/25/18 at 11:30 Guaifenesin (Robitussin Liquid Cup) 200 mg Q4H PRN PO COUGH; Start 03/25/18 at 10:00 Miscellaneous Information 1 ea NOTE XX ; Start 03/25/18 at 10:30 Glucose (Glutose) 15 gm Q15M PRN PO DECREASED GLUCOSE; Start 03/25/18 at 10:30 Glucose (Glutose) 22.5 gm Q15M PRN PO DECREASED GLUCOSE; Start 03/25/18 at 10:30 Dextrose (D50w Syringe) 25 ml Q15M PRN IV DECREASED GLUCOSE; Start 03/25/18 at 10:30 Dextrose (D50w Syringe) 50 ml Q15M PRN IV DECREASED GLUCOSE; Start 03/25/18 at 10:30 Glucagon (Glucagen) 1 mg Q15M PRN IM DECREASED GLUCOSE; Start 03/25/18 at 10:30 Glucose (Glutose) 15 gm Q15M PRN BUCCAL DECREASED GLUCOSE; Start 03/25/18 at 10:30 Cefepime HCl 50 ml @ 100 mls/hr Q12 IVPB Last administered on 03/29/18 08:48; Admin Dose 100 MLS/HR; Start 03/26/18 at 10:30 Levofloxacin/ Dextrose 100 ml @ 100 mls/hr Q24H IVPB Last administered on 03/29/18 09:43; Admin Dose 100 MLS/HR; Start 03/26/18 at 09:30 Metoprolol Tartrate (Lopressor) 12.5 mg BID PO Last administered on 03/29/18 08:48; Admin Dose 12.5 MG; Start 03/26/18 at 21:00 Bumetanide (Bumex) 1 mg BID DIURETICS IV Last administered on 03/29/18at 06:25; Admin Dose 1 MG; Start 03/28/18 at 18:00 MAGALYS CHAPIN Mar 29, 2018 11:02
[2018-03-29] MEDS: DIGOXIN 0.125 MG TAB PO SCH (13:13)
--- NOTE | 2018-03-29 15:40 | CONS ---
Date/Time of Note Date/Time of Note DATE: 03/29/18 TIME: 15:38 Assessment/Plan Assessment/Plan Assessment/Plan Respiratory failure Acute decompensated diastolic congestive heart failure Pneumonia Preserved ejection fraction Chronic atrial fibrillation Obesity hypoventilation syndrome -Shortness of breath is improving, continue Bumex with holding parameters for hypotension as well as continue if renal function tolerates. Maintain potassium above 4.0 and magnesium above 2.0. Result Diagram: 03/29/18 0514 03/29/18 0514 Results 24hrs Laboratory Tests Test 03/28/18 17:10 03/28/18 20:15 03/29/18 02:58 03/29/18 05:14 Bedside Glucose 159 251 H 199 White Blood Count 9.6 # Red Blood Count 4.28 Hemoglobin 12.5 Hematocrit 41.5 Mean Corpuscular 97.0 Volume Mean Corpuscular 29.2 Hemoglobin Mean Corpuscular 30.1 L Hemoglobin Concent Red Cell 17.0 H Distribution Width Platelet Count 216 Mean Platelet Volume 9.7 Immature 0.800 H Granulocytes % Neutrophils % 74.5 Lymphocytes % 14.2 L Monocytes % 7.8 Eosinophils % 2.3 Basophils % 0.4 Nucleated Red Blood 0.0 Cells % Immature 0.080 H Granulocytes # Neutrophils # 7.2 Lymphocytes # 1.4 Monocytes # 0.8 Eosinophils # 0.2 Basophils # 0.0 Nucleated Red Blood 0.0 Cells # Sodium Level 139 Potassium Level 3.7 Chloride Level 86 L Carbon Dioxide Level 43 *H Anion Gap 10 Blood Urea Nitrogen 23 H Creatinine 0.80 Est Glomerular > 60 Filtrat Rate mL/min Glucose Level 194 Calcium Level 8.6 Test 03/29/18 07:44 03/29/18 12:00 Bedside Glucose 201 213 Consultation Date/Type/Reason Admit Date/Time Mar 24, 2018 at 19:37 Initial Consult Date 03/25/18 Type of Consult cv 24 HR Interval Summary Free Text/Dictation Shortness of breath is progressively improving. Denies chest pain or palpitations or dizziness Exam/Review of Systems Vital Signs Vitals Vital Signs Date Temp Pulse Resp B/P (MAP) Pulse Ox O2 O2 Flow FiO2 Time Delivery Rate 03/29/18 90 12:46 03/29/18 98.5 18 92/54 (67) 94 Nasal 11:25 Cannula 03/29/18 4.0 07:56 03/28/18 39 03:36 Intake and Output 03/28/18 03/28/18 03/29/18 1414:59 22:59 06:59 IntakeIntake Total 50 ml 800 ml OutputOutput Total 1350 ml BalanceBalance 50 ml -550 ml Exam No dyspnea with speaking Constitutional: alert, oriented, obese Head: normocephalic Respiratory: other (Coarse breath sounds bilaterally, no wheezing) Cardiovascular: irregular rhythm, other (S1-S2 heard) Gastrointestinal: soft, non-tender, bowel sounds Extremities: edema Medications Medications Current Medications Ondansetron HCl (Zofran Inj) 4 mg Q6H PRN IV NAUSEA AND/OR VOMITING; Start 03/24/18 at 20:00 Albuterol/ Ipratropium (Duoneb) 3 ml Q2H RESP THERAPY PRN NEB SHORTNESS OF BREATH Last administered on 03/24/18 21:18; Admin Dose 3 ML; Start 03/24/18 at 20:00 Amiodarone HCl (Cordarone) 200 mg DAILY PO Last administered on 03/29/18 08:47; Admin Dose 200 MG; Start 03/24/18 at 20:00 Apixaban (Eliquis) 5 mg BID PO Last administered on 03/29/18 08:47; Admin Dose 5 MG; Start 03/24/18 at 21:00 Atorvastatin Calcium (Lipitor) 40 mg QHS PO Last administered on 03/28/18 21:12; Admin Dose 40 MG; Start 03/24/18 at 21:00 Digoxin (Digoxin) 0.125 mg DAILY@1300 PO Last administered on 03/29/18 13:13; Admin Dose 0.125 MG; Start 03/25/18 at 13:00 Linagliptin (Tradjenta) 5 mg QHS PO Last administered on 03/28/18 21:12; Admin Dose 5 MG; Start 03/24/18 at 21:00 Primidone (Mysoline) 50 mg HS PO Last administered on 03/28/18 21:12; Admin Dose 50 MG; Start 03/24/18 at 21:00 Tiotropium [place] (Spiriva) 1 inh DAILY INH Last administered on 03/29/18 08:46; Admin Dose 1 INH; Start 03/25/18 at 09:00 Diagnostic Test (Pha) (Accu-Chek) 1 ea 02 XX Last administered on 03/29/18at 02:18; Admin Dose 1 EA; Start 03/26/18 at 02:00 Insulin Aspart (Novolog Insulin Pen) NOVOLOG *MILD* ALGORITHM WITH MEALS BEDTIME SC Last administered on 03/29/18at 12:23; Admin Dose 2 UNIT; Start 03/25/18 at 11:30 Guaifenesin (Robitussin Liquid Cup) 200 mg Q4H PRN PO COUGH; Start 03/25/18 at 10:00 Miscellaneous Information 1 ea NOTE XX ; Start 03/25/18 at 10:30 Glucose (Glutose) 15 gm Q15M PRN PO DECREASED GLUCOSE; Start 03/25/18 at 10:30 Glucose (Glutose) 22.5 gm Q15M PRN PO DECREASED GLUCOSE; Start 03/25/18 at 10:30 Dextrose (D50w Syringe) 25 ml Q15M PRN IV DECREASED GLUCOSE; Start 03/25/18 at 10:30 Dextrose (D50w Syringe) 50 ml Q15M PRN IV DECREASED GLUCOSE; Start 03/25/18 at 10:30 Glucagon (Glucagen) 1 mg Q15M PRN IM DECREASED GLUCOSE; Start 03/25/18 at 10:30 Glucose (Glutose) 15 gm Q15M PRN BUCCAL DECREASED GLUCOSE; Start 03/25/18 at 10:30 Cefepime HCl 50 ml @ 100 mls/hr Q12 IVPB Last administered on 03/29/18at 08:48; Admin Dose 100 MLS/HR; Start 03/26/18 at 10:30 Levofloxacin/ Dextrose 100 ml @ 100 mls/hr Q24H IVPB Last administered on 03/29at 09:43; Admin Dose 100 MLS/HR; Start 03/26/18 at 09:30 Metoprolol Tartrate (Lopressor) 12.5 mg BID PO Last administered on 03/29/18 08:48; Admin Dose 12.5 MG; Start 03/26/18 at 21:00 Bumetanide (Bumex) 1 mg BID DIURETICS IV Last administered on 03/29/18 06:25; Admin Dose 1 MG; Start 03/28/18 at 18:00 Artemio Freeman DO Mar 29, 2018 15:39
--- NOTE | 2018-03-29 16:22 | PN ---
Date/Time of Note Date/Time of Note DATE: 03/29/18 TIME: 16:19 Assessment/Plan VTE Prophylaxis Risk score (from Nsg)>0 risk: 6 SCD applied (from Nsg): Yes Pharmacological prophylaxis: other (eliquis) Lines/Catheters IV Catheter Type (from Nrsg): [place] Urinary Cath still in place: Yes Reason Cath still needed: other (indicate) (diuresis) Assessment/Plan Assessment/Plan 67-year-old female patient with comorbidities including COPD on home oxygen, diastolic heart failure, atrial fibrillation on Eliquis, diabetes mellitus type II, hypertension, pulmonary hypertension and dyslipidemia presented with shortness of breath and found with hypercapnic/hypoxic respiratory failure, likely combination of COPD exacerbation, A-fib with RVR, acute on chronic diastolic CHF and pneumonia # Hypoxic and hypercapnic respiratory failure: Mixed etiology includes HFpEF, OHS/MICHAEL, COPD and cor pulmonale. Likely represents a combination of ADHF and possible LLL pneumonia, although cannot exclude a PE. - Pulmonary is following. - Continue supplemental O2. At home requires 4L, now on 4L - Continue bronchodilators. Got IV steroids x1 on admission. - CXR shows increasing patchy infiltrates in the absence of bacterial pneumonia symptoms #Acute pneumonia - Started on cefepime for pneumonia. - Will discharge to complete course of levaquin and doxy. # Atrial fibrillation with RVR: Currently rate controlled. -For now continue home meds including, amiodarone, digoxin and Eliquis -Holding metoprolol. # COPD exacerbation: Of note ,patient on 4L home oxygen prior to admission. - Pulmonary following - Daily spiriva, prn duonebs. - No steroids. # Acute on chronic diastolic CHF - IV diuresis. Home metoprolol has been held. # Type 2 diabetes with hyperglycemia. A1c is 7.7. -For now continue Tradjenta, insulin sliding scale, monitor sugars # Hypertension: BP within goal. - Continue home meds # Dyslipidemia: Continue statin # Morbid obesity with a BMI of 53 - This appears to be the underlying cause of many of her problems, and she is aware of that fact. - Unfortunately her weight has increased over the course of several hospital izations. This may be due to fluid retention from CHF also. - The patient reports skipping meals frequently and eating lower-calorie options as her method for weight loss. Dispo: Tentative plan for discharge tomorrow. Result Diagram: 03/29/18 0514 03/29/18 0514 Results 24hrs Laboratory Tests Test 03/28/18 17:10 03/28/18 20:15 03/29/18 02:58 03/29/18 05:14 Bedside Glucose 159 251 H 199 White Blood Count 9.6 # Red Blood Count 4.28 Hemoglobin 12.5 Hematocrit 41.5 Mean Corpuscular 97.0 Volume Mean Corpuscular 29.2 Hemoglobin Mean Corpuscular 30.1 L Hemoglobin Concent Red Cell 17.0 H Distribution Width Platelet Count 216 Mean Platelet Volume 9.7 Immature 0.800 H Granulocytes % Neutrophils % 74.5 Lymphocytes % 14.2 L Monocytes % 7.8 Eosinophils % 2.3 Basophils % 0.4 Nucleated Red Blood 0.0 Cells % Immature 0.080 H Granulocytes # Neutrophils # 7.2 Lymphocytes # 1.4 Monocytes # 0.8 Eosinophils # 0.2 Basophils # 0.0 Nucleated Red Blood 0.0 Cells # Sodium Level 139 Potassium Level 3.7 Chloride Level 86 L Carbon Dioxide Level 43 *H Anion Gap 10 Blood Urea Nitrogen 23 H Creatinine 0.80 Est Glomerular > 60 Filtrat Rate mL/min Glucose Level 194 Calcium Level 8.6 Test 03/29/18 07:44 03/29/18 12:00 Bedside Glucose 201 213 Subjective 24 Hr Interval Summary Free Text/Dictation No acute overnight events. Patient feeling well overall. Exam/Review of Systems Vital Signs Vitals Vital Signs Date Temp Pulse Resp B/P (MAP) Pulse Ox O2 O2 Flow FiO2 Time Delivery Rate 03/29/18 98.5 82 18 114/62 92 Mechanical 15:30 (79) Ventilator 03/29/18 4.0 07:56 03/28/18 39 03:36 Intake and Output 03/28/18 03/28/18 03/29/18 1515:00 23:00 07:00 IntakeIntake Total 50 ml 800 ml OutputOutput Total 1350 ml BalanceBalance 50 ml -550 ml Exam Gen: Morbidly obese woman sitting in chair HEENT: Clear oropharynx, nasal cannula Card: Irregularly irregular, no murmurs Pulm: Inspiratory wheezes throughout. Diminished bibasilar breath sounds L>R with rales. Abd: Obese, distended, soft, nontender. Well healed suprapubic surgical scar. Ext: No LE edema Skin: Several skin tags along upper chest and back. Chronic LE venous stasis changes. Medications Medications Current Medications Ondansetron HCl (Zofran Inj) 4 mg Q6H PRN IV NAUSEA AND/OR VOMITING; Start 03/24/18 at 20:00 Albuterol/ Ipratropium (Duoneb) 3 ml Q2H RESP THERAPY PRN NEB SHORTNESS OF BREATH Last administered on 03/24/18 21:18; Admin Dose 3 ML; Start 03/24/18 at 20:00 Amiodarone HCl (Cordarone) 200 mg DAILY PO Last administered on 03/29/18 08:47; Admin Dose 200 MG; Start 03/24/18 at 20:00 Apixaban (Eliquis) 5 mg BID PO Last administered on 03/29/18 08:47; Admin Dose 5 MG; Start 03/24/18 at 21:00 Atorvastatin Calcium (Lipitor) 40 mg QHS PO Last administered on 03/28/18 21:12; Admin Dose 40 MG; Start 03/24/18 at 21:00 Digoxin (Digoxin) 0.125 mg DAILY@1300 PO Last administered on 03/29/18 13:13; Admin Dose 0.125 MG; Start 03/25/18 at 13:00 Linagliptin (Tradjenta) 5 mg QHS PO Last administered on 03/28/18 21:12; Admin Dose 5 MG; Start 03/24/18 at 21:00 Primidone (Mysoline) 50 mg HS PO Last administered on 03/28/18 21:12; Admin Dose 50 MG; Start 03/24/18 at 21:00 Tiotropium [place] (Spiriva) 1 inh DAILY INH Last administered on 03/29/18 08:46; Admin Dose 1 INH; Start 03/25/18 at 09:00 Diagnostic Test (Pha) (Accu-Chek) 1 ea 02 XX Last administered on 03/29/18 02:18; Admin Dose 1 EA; Start 03/26/18 at 02:00 Insulin Aspart (Novolog Insulin Pen) NOVOLOG *MILD* ALGORITHM WITH MEALS BEDTIME SC Last administered on 03/29/18 12:23; Admin Dose 2 UNIT; Start 03/25/18 at 11:30 Guaifenesin (Robitussin Liquid Cup) 200 mg Q4H PRN PO COUGH; Start 03/25/18 at 10:00 Miscellaneous Information 1 ea NOTE XX ; Start 03/25/18 at 10:30 Glucose (Glutose) 15 gm Q15M PRN PO DECREASED GLUCOSE; Start 03/25/18 at 10:30 Glucose (Glutose) 22.5 gm Q15M PRN PO DECREASED GLUCOSE; Start 03/25/18 at 10:30 Dextrose (D50w Syringe) 25 ml Q15M PRN IV DECREASED GLUCOSE; Start 03/25/18 at 10:30 Dextrose (D50w Syringe) 50 ml Q15M PRN IV DECREASED GLUCOSE; Start 03/25/18 at 10:30 Glucagon (Glucagen) 1 mg Q15M PRN IM DECREASED GLUCOSE; Start 03/25/18 at 10:30 Glucose (Glutose) 15 gm Q15M PRN BUCCAL DECREASED GLUCOSE; Start 03/25/18 at 10:30 Cefepime HCl 50 ml @ 100 mls/hr Q12 IVPB Last administered on 03/29/18at 08:48; Admin Dose 100 MLS/HR; Start 03/26/18 at 10:30 Levofloxacin/ Dextrose 100 ml @ 100 mls/hr Q24H IVPB Last administered on 03/29/18at 09:43; Admin Dose 100 MLS/HR; Start 03/26/18 at 09:30 Metoprolol Tartrate (Lopressor) 12.5 mg BID PO Last administered on 03/29/18at 08:48; Admin Dose 12.5 MG; Start 03/26/18 at 21:00 Bumetanide (Bumex) 1 mg BID DIURETICS IV Last administered on 03/29/18at 06:25; Admin Dose 1 MG; Start 03/28/18 at 18:00 BERE NEVILLE MD Mar 29, 2018 16:22
[2018-03-29] MEDS: PRIMIDONE 50 MG TAB PO SCH (20:40)
[2018-03-29] MEDS: LINAGLIPTIN 5 MG TABLET PO SCH (20:40)
[2018-03-29] MEDS: ATORVASTATIN 40 MG TAB PO SCH (20:40)
[2018-03-30] VITALS (9 sets, daily range): BP systolic 108–131; BP diastolic 58–64; PULSE 71–118; RESP 18–20
[2018-03-30] MEDS: ACCU-CHEK XX SCH (02:59)
[2018-03-30] MEDS: BUMETANIDE 1 MG INJ IV SCH (06:05)
[2018-03-30] MEDS: INSULIN ASPART [NOVOLOG] 3 ML PEN SC SCH ×2 (08:21→12:08)
[2018-03-30] MEDS: TIOTROPIUM 18 MCG CAPSULE INHA DEV INH SCH (09:00)
[2018-03-30] MEDS ORDERED: POTASSIUM CHLORIDE 20 MEQ POWDER FOR ORAL SOLN PO ONE (09:00)
[2018-03-30] MEDS ORDERED: DOXY100T21 PO (09:03)
[2018-03-30] MEDS ORDERED: LEVO750T8 PO (09:03)
--- NOTE | 2018-03-30 09:04 | PDOCDIS ---
Discharge Instructions DIAGNOSIS Discharge Diagnosis Lobar pneumonia CONDITION [id number] Patient Condition: [id number] Fair HOME CARE INSTRUCTIONS: [id number] Diet Instructions: [id number] Reduced Sodium ACTIVITY: [id number] Activity Restrictions: [id number] Slowly Increase Activity FOLLOW UP/APPOINTMENTS Follow-up Plan 1. Get a primary care doctor and make an appointment within one week. 2. Take all medications as prescribed, including antibiotics for one more week. 3. For worsening shortness of breath, return to the emergency room. BERE NEVILLE MD Mar 30, 2018 09:04
[2018-03-30] MEDS: APIXABAN 5 MG TABLET PO SCH (09:43)
[2018-03-30] MEDS: CEFEPIME 1GM/50 ML (PMX) 50 ML IVPB SCH (09:44)
[2018-03-30] MEDS: AMIODARONE 200 MG TAB PO SCH (09:44)
[2018-03-30] MEDS: METOPROLOL 25 MG TAB PO SCH (09:44)
--- NOTE | 2018-03-30 09:55 | CONS ---
Date/Time of Note Date/Time of Note DATE: 03/30/18 TIME: 09:52 Assessment/Plan Assessment/Plan Assessment/Plan Assessment and recommendations; 1. patient with history of CHF admitted for pneumonia and CHF exacerbation. Clinically improving. 2. Likely underlying sleep apnea. With chronic type II respiratory failure. Status post multiple admissions at various hospitals. 3. Chronic atrial fibrillation. Continue current supportive care. Obtain follow-up chest x-ray 24 hours. If the patient has persistent left pleural effusion, she will benefit from thoracentesis. Based upon examination today it appears that the effusion may have cleared. Result Diagram: 03/30/18 0517 03/30/18 0517 Results 24hrs Laboratory Tests Test 03/29/18 12:00 03/29/18 17:15 03/29/18 20:36 03/30/18 03:24 Bedside Glucose 213 227 H 270 H 180 Test 03/30/18 05:17 03/30/18 08:04 White Blood Count 8.6 Red Blood Count 4.10 L Hemoglobin 11.9 L Hematocrit 39.3 Mean Corpuscular 95.9 Volume Mean Corpuscular 29.0 Hemoglobin Mean Corpuscular 30.3 L Hemoglobin Concent Red Cell 16.7 H Distribution Width Platelet Count 199 Mean Platelet Volume 9.8 Immature 1.000 H Granulocytes % Neutrophils % 74.3 Lymphocytes % 14.4 L Monocytes % 7.4 Eosinophils % 2.4 Basophils % 0.5 Nucleated Red Blood 0.0 Cells % Immature 0.090 H Granulocytes # Neutrophils # 6.4 Lymphocytes # 1.2 Monocytes # 0.6 Eosinophils # 0.2 Basophils # 0.0 Nucleated Red Blood 0.0 Cells # Sodium Level 138 Potassium Level 3.6 Chloride Level 85 L Carbon Dioxide Level 43 *H Anion Gap 10 Blood Urea Nitrogen 22 H Creatinine 0.70 Est Glomerular > 60 Filtrat Rate mL/min Glucose Level 194 Calcium Level 8.7 Phosphorus Level 3.4 Magnesium Level 2.0 Bedside Glucose 206 Consultation Date/Type/Reason Admit Date/Time Mar 24, 2018 at 19:37 Initial Consult Date 03/25/18 Type of Consult Pulmonary 24 HR Interval Summary Free Text/Dictation Patient's condition is stable. Denies any shortness of breath at rest. Complains of chest congestion and occasional coughing. General exam; elderly female, awake alert, currently in no distress. Exam/Review of Systems Vital Signs Vitals Vital Signs Date Temp Pulse Resp B/P (MAP) Pulse Ox O2 O2 Flow FiO2 Time Delivery Rate 03/30/18 82 08:36 03/30/18 97.7 20 108/64 92 07:47 (79) 03/30/18 4.0 04:55 03/29/18 Nasal 20:00 Cannula 03/28/18 39 03:36 Intake and Output 03/29/18 03/29/18 03/30/18 1515:00 23:00 07:00 IntakeIntake Total 50 ml 1350 ml 1000 ml OutputOutput Total 3201 ml 1700 ml BalanceBalance 50 ml -1851 ml -700 ml Exam H EENT exam; supple neck, positive JVD. No lymphadenopathy. Midline trachea. No thyromegaly. Patient has few remaining carious teeth. Chest exam; diminished but clear breath sounds. S1-S2 audible, no murmurs. Irregular rhythm. Abdomen exam; soft, nontender. Organomegaly difficult to assess. Bowel sounds audible. Extremity exam; no peripheral edema. 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 Medications Medications Current Medications Ondansetron HCl (Zofran Inj) 4 mg Q6H PRN IV NAUSEA AND/OR VOMITING; Start 03/24/18 at 20:00 Albuterol/ Ipratropium (Duoneb) 3 ml Q2H RESP THERAPY PRN NEB SHORTNESS OF BREATH Last administered on 03/24/18at 21:18; Admin Dose 3 ML; Start 03/24/18 at 20:00 Amiodarone HCl (Cordarone) 200 mg DAILY PO Last administered on 03/30/18at 09:44; Admin Dose 200 MG; Start 03/24/18 at 20:00 Apixaban (Eliquis) 5 mg BID PO Last administered on 03/30/18at 09:43; Admin Dose 5 MG; Start 03/24/18 at 21:00 Atorvastatin Calcium (Lipitor) 40 mg QHS PO Last administered on 03/29/18at 20:40; Admin Dose 40 MG; Start 03/24/18 at 21:00 Digoxin (Digoxin) 0.125 mg DAILY@1300 PO Last administered on 03/29/18at 13:13; Admin Dose 0.125 MG; Start 03/25/18 at 13:00 Linagliptin (Tradjenta) 5 mg QHS PO Last administered on 03/29/18at 20:40; Admin Dose 5 MG; Start 03/24/18 at 21:00 Primidone (Mysoline) 50 mg HS PO Last administered on 03/29/18at 20:40; Admin Dose 50 MG; Start 03/24/18 at 21:00 Tiotropium [place] (Spiriva) 1 inh DAILY INH Last administered on 03/29/18at 08:46; Admin Dose 1 INH; Start 03/25/18 at 09:00 Diagnostic Test (Pha) (Accu-Chek) 1 ea 02 XX Last administered on 03/30/18at 02:59; Admin Dose 1 EA; Start 03/26/18 at 02:00 Insulin Aspart (Novolog Insulin Pen) NOVOLOG *MILD* ALGORITHM WITH MEALS BEDTIME SC Last administered on 03/30/18at 08:21; Admin Dose 2 UNIT; Start 03/25/18 at 11:30 Guaifenesin (Robitussin Liquid Cup) 200 mg Q4H PRN PO COUGH; Start 03/25/18 at 10:00 Miscellaneous Information 1 ea NOTE XX ; Start 03/25/18 at 10:30 Glucose (Glutose) 15 gm Q15M PRN PO DECREASED GLUCOSE; Start 03/25/18 at 10:30 Glucose (Glutose) 22.5 gm Q15M PRN PO DECREASED GLUCOSE; Start 03/25/18 at 10:30 Dextrose (D50w Syringe) 25 ml Q15M PRN IV DECREASED GLUCOSE; Start 03/25/18 at 10:30 Dextrose (D50w Syringe) 50 ml Q15M PRN IV DECREASED GLUCOSE; Start 03/25/18 at 10:30 Glucagon (Glucagen) 1 mg Q15M PRN IM DECREASED GLUCOSE; Start 03/25/18 at 10:30 Glucose (Glutose) 15 gm Q15M PRN BUCCAL DECREASED GLUCOSE; Start 03/25/18 at 10:30 Cefepime HCl 50 ml @ 100 mls/hr Q12 IVPB Last administered on 03/30/18at 09:44; Admin Dose 100 MLS/HR; Start 03/26/18 at 10:30 Levofloxacin/ Dextrose 100 ml @ 100 mls/hr Q24H IVPB Last administered on 03/29/18at 09:43; Admin Dose 100 MLS/HR; Start 03/26/18 at 09:30 Metoprolol Tartrate (Lopressor) 12.5 mg BID PO Last administered on 03/30/18at 09:44; Admin Dose 12.5 MG; Start 03/26/18 at 21:00 Bumetanide (Bumex) 1 mg BID DIURETICS IV Last administered on 03/30/18at 06:05; Admin Dose 1 MG; Start 03/28/18 at 18:00 MAGALYS CHAPIN Mar 30, 2018 09:55
[2018-03-30] MEDS: LEVOFLOXACIN 500MG/D5W (PMX) 100 ML IVPB SCH (10:34)
--- NOTE | 2018-03-30 12:03 | CONS ---
Date/Time of Note Date/Time of Note DATE: 03/30/18 TIME: 12:01 Assessment/Plan Assessment/Plan Assessment/Plan Respiratory failure Acute decompensated diastolic congestive heart failure Pneumonia Preserved ejection fraction Chronic atrial fibrillation Obesity hypoventilation syndrome -Shortness of breath is improving, change Bumex to p.o. 1 mg twice daily with close outpatient follow-up for titration. Maintain potassium above 4.0 and magnesium above 2.0. DC planning Result Diagram: 03/30/18 0517 03/30/18 0517 Results 24hrs Laboratory Tests Test 03/29/18 17:15 03/29/18 20:36 03/30/18 03:24 03/30/18 05:17 Bedside Glucose 227 H 270 H 180 White Blood Count 8.6 Red Blood Count 4.10 L Hemoglobin 11.9 L Hematocrit 39.3 Mean Corpuscular 95.9 Volume Mean Corpuscular 29.0 Hemoglobin Mean Corpuscular 30.3 L Hemoglobin Concent Red Cell 16.7 H Distribution Width Platelet Count 199 Mean Platelet Volume 9.8 Immature 1.000 H Granulocytes % Neutrophils % 74.3 Lymphocytes % 14.4 L Monocytes % 7.4 Eosinophils % 2.4 Basophils % 0.5 Nucleated Red Blood 0.0 Cells % Immature 0.090 H Granulocytes # Neutrophils # 6.4 Lymphocytes # 1.2 Monocytes # 0.6 Eosinophils # 0.2 Basophils # 0.0 Nucleated Red Blood 0.0 Cells # Sodium Level 138 Potassium Level 3.6 Chloride Level 85 L Carbon Dioxide Level 43 *H Anion Gap 10 Blood Urea Nitrogen 22 H Creatinine 0.70 Est Glomerular > 60 Filtrat Rate mL/min Glucose Level 194 Calcium Level 8.7 Phosphorus Level 3.4 Magnesium Level 2.0 Test 03/30/18 08:04 Bedside Glucose 206 Consultation Date/Type/Reason Admit Date/Time Mar 24, 2018 at 19:37 Initial Consult Date 03/25/18 Type of Consult cv 24 HR Interval Summary Free Text/Dictation Feeling much better, shortness of breath is much less. Denies chest pain or palpitations Exam/Review of Systems Vital Signs Vitals Vital Signs Date Temp Pulse Resp B/P (MAP) Pulse Ox O2 O2 Flow FiO2 Time Delivery Rate 03/30/18 98.6 71 19 109/63 93 11:32 (78) 03/30/18 Nasal 4.0 10:04 Cannula 03/28/18 39 03:36 Intake and Output 03/29/18 03/29/18 03/30/18 1515:00 23:00 07:00 IntakeIntake Total 50 ml 1350 ml 1000 ml OutputOutput Total 3201 ml 1700 ml BalanceBalance 50 ml -1851 ml -700 ml Exam Constitutional: alert, oriented, obese Head: normocephalic Respiratory: other (Coarse breath sounds bilaterally, no wheezing) Cardiovascular: irregular rhythm, other (S1-S2 heard) Gastrointestinal: soft, non-tender, bowel sounds Extremities: edema Medications Medications Current Medications Ondansetron HCl (Zofran Inj) 4 mg Q6H PRN IV NAUSEA AND/OR VOMITING; Start 03/24/18 at 20:00 Albuterol/ Ipratropium (Duoneb) 3 ml Q2H RESP THERAPY PRN NEB SHORTNESS OF BREATH Last administered on 03/24/18 21:18; Admin Dose 3 ML; Start 03/24/18 at 20:00 Amiodarone HCl (Cordarone) 200 mg DAILY PO Last administered on 03/30/18 09:44; Admin Dose 200 MG; Start 03/24/18 at 20:00 Apixaban (Eliquis) 5 mg BID PO Last administered on 03/30/18 09:43; Admin Dose 5 MG; Start 03/24/18 at 21:00 Atorvastatin Calcium (Lipitor) 40 mg QHS PO Last administered on 03/29/18 20:40; Admin Dose 40 MG; Start 03/24/18 at 21:00 Digoxin (Digoxin) 0.125 mg DAILY@1300 PO Last administered on 03/29/18 13:13; Admin Dose 0.125 MG; Start 03/25/18 at 13:00 Linagliptin (Tradjenta) 5 mg QHS PO Last administered on 03/29/18 20:40; Admin Dose 5 MG; Start 03/24/18 at 21:00 Primidone (Mysoline) 50 mg HS PO Last administered on 03/29/18 20:40; Admin Dose 50 MG; Start 03/24/18 at 21:00 Tiotropium [place] (Spiriva) 1 inh DAILY INH Last administered on 03/29/18 08:46; Admin Dose 1 INH; Start 03/25/18 at 09:00 Diagnostic Test (Pha) (Accu-Chek) 1 ea 02 XX Last administered on 03/30/18at 02:59; Admin Dose 1 EA; Start 03/26/18 at 02:00 Insulin Aspart (Novolog Insulin Pen) NOVOLOG *MILD* ALGORITHM WITH MEALS BEDTIME SC Last administered on 03/30/18at 08:21; Admin Dose 2 UNIT; Start 03/25/18 at 11:30 Guaifenesin (Robitussin Liquid Cup) 200 mg Q4H PRN PO COUGH; Start 03/25/18 at 10:00 Miscellaneous Information 1 ea NOTE XX ; Start 03/25/18 at 10:30 Glucose (Glutose) 15 gm Q15M PRN PO DECREASED GLUCOSE; Start 03/25/18 at 10:30 Glucose (Glutose) 22.5 gm Q15M PRN PO DECREASED GLUCOSE; Start 03/25/18 at 10:30 Dextrose (D50w Syringe) 25 ml Q15M PRN IV DECREASED GLUCOSE; Start 03/25/18 at 10:30 Dextrose (D50w Syringe) 50 ml Q15M PRN IV DECREASED GLUCOSE; Start 03/25/18 at 10:30 Glucagon (Glucagen) 1 mg Q15M PRN IM DECREASED GLUCOSE; Start 03/25/18 at 10:30 Glucose (Glutose) 15 gm Q15M PRN BUCCAL DECREASED GLUCOSE; Start 03/25/18 at 10:30 Cefepime HCl 50 ml @ 100 mls/hr Q12 IVPB Last administered on 03/30/18at 09:44; Admin Dose 100 MLS/HR; Start 03/26/18 at 10:30 Levofloxacin/ Dextrose 100 ml @ 100 mls/hr Q24H IVPB Last administered on 03/30at 10:34; Admin Dose 100 MLS/HR; Start 03/26/18 at 09:30 Metoprolol Tartrate (Lopressor) 12.5 mg BID PO Last administered on 03/30/18at 09:44; Admin Dose 12.5 MG; Start 03/26/18 at 21:00 Bumetanide (Bumex) 1 mg BID DIURETICS IV Last administered on 03/30/18at 06:05; Admin Dose 1 MG; Start 03/28/18 at 18:00 Artemio Freeman DO Mar 30, 2018 12:03
[2018-03-30] MEDS: DIGOXIN 0.125 MG TAB PO SCH (14:03)
--- NOTE | 2018-03-30 16:39 | DS ---
Date/Time of Note Date/Time of Note DATE: 03/30/18 TIME: 16:36 Discharge Summary Admission/Discharge Info Admit Date/Time Mar 24, 2018 at 19:37 Discharge Date/Time Mar 30, 2018 Discharge Diagnosis Lobar pneumonia Patient Condition: Fair Consults Cardiology, Pulmonary Hx of Present Illness Patient is a 67-year-old morbidly obese female patient with history of COPD on home oxygen, diastolic heart failure, atrial fibrillation on Eliquis, diabetes mellitus type II, hypertension, pulmonary hypertension, and dyslipidemia who presented to ER with worsening shortness of breath. When presented to ER, she was hypoxic. VBG showing hypercapnia and hypoxia. Chest x-ray shows left basilar opacification which may represent pneumonia and possible mild congestive failure. She has been placed on BiPAP. Hospital Course Initially admitted to ICU due to high oxygen requirements. No steroids. Diuresed with IV bumex 1mg BID. Started on cefepime and levofloxacin for hospital- acquired pneumonia. Oxygen requirements gradually improved down to home levels. Able to work with PT. Plan to discharge to finish a course of levaquin and doxycycline. Home Meds Active Scripts Doxycycline Monohydrate* (Doxycycline Monohydrate*) 100 Mg Tablet, 100 MG PO BID, #14 TAB Prov:BERE NEVILLE MD 03/30/18 Levofloxacin* (Levofloxacin*) 750 Mg Tablet, 750 MG PO DAILY, #7 TAB Prov:BERE NEVILLE MD 03/30/18 Methylprednisolone* (Medrol*) 4 Mg Tab, 4 MG PO AC BREAKFAST for 1 Day, TAB Prov:KELLY LANDERS NP 01/31/18 Methylprednisolone* (Medrol*) 4 Mg Tab, 4 MG PO HS for 1 Day, TAB Prov:KELLY LANDERS NP 01/31/18 Insulin Aspart* (Novolog Insulin Pen*) 100 Unit/Ml Soln, 0 UNIT SC WITH MEALS BEDTIME for 1 Day Prov:KELLY LANDERS NP 01/31/18 Insulin Aspart* (Novolog Insulin Pen*) 100 Unit/Ml Soln, 10 UNIT SC WITH MEALS for 1 Day Prov:KELLY LANDERS NP 01/31/18 Reported Medications Bumetanide* (Bumetanide*) 2 Mg Tablet, 2 MG PO DAILY 03/24/18 Linagliptin (TRADJENTA) 5 Mg Tablet, 5 MG PO QHS, TAB 03/24/18 Primidone* (Mysoline*) 50 Mg Tablet, 50 MG PO HS, TAB 03/24/18 Tiotropium [place]* (Spiriva*) 18 Mcg Cap.w.dev, 1 CAP INHALATION DAILY, #30 CAP 01/10/18 Metformin Hcl* (Metformin Hcl*) 1,000 Mg Tablet, 1000 MG PO WITH BREAKFAST DINNE, #60 TAB 01/10/18 Atorvastatin* (Atorvastatin*) 40 Mg Tablet, 40 MG PO QHS, #30 TAB 01/10/18 Digoxin* (Digitek*) 125 Mcg Tablet, 0.125 MG PO DAILY, TAB 01/10/18 Apixaban* (Eliquis*) 5 Mg Tablet, 5 MG PO BID, TAB 01/10/18 Metoprolol Tartrate* (Lopressor*) 25 Mg Tab, 25 MG PO BID, #60 TAB 01/10/18 Amiodarone Hcl* (Amiodarone Hcl*) 200 Mg Tablet, 200 MG PO DAILY, #30 TAB 01/10/18 Discontinued Reported Medications Bumetanide* (Bumetanide*) 1 Mg Tablet, 1 MG PO DAILY, TAB 01/10/18 Discontinued Scripts [Methylprednisolone Dose Pack] 1 EA EACH No Conflict Check, 0 EA PO .STD DOSE PACK, #1 Prov:KELLY LANDERS NP 01/31/18 [Insulin Glargine] 100 UNITS/ML SOLN No Conflict Check, 36 UNITS SC DAILY@2000 for 1 Day Prov:KELLY LANDERS NP 01/31/18 Follow-up Plan 1. Get a primary care doctor and make an appointment within one week. 2. Take all medications as prescribed, including antibiotics for one more week. 3. For worsening shortness of breath, return to the emergency room. [facility] Time spent on discharge: > 30 minutes Pending Labs Laboratory Tests Test 03/29/18 17:15 03/29/18 20:36 03/30/18 03:24 03/30/18 05:17 Bedside 227 270 180 Glucose mg/dL (70-220) mg/dL (70-220) mg/dL (70-220) White Blood 8.6 Count 10^3/ul (4.8-1 0.8) Red Blood 4.10 Count 10^6/ul (4.20- 5.40) Hemoglobin 11.9 g/dl (12.0-16. 0) Hematocrit 39.3 % (37.0-47.0) Mean 95.9 Corpuscular fl (82.0-101.0 Volume ) Mean 29.0 Corpuscular pg (29.0-33.0) Hemoglobin Mean 30.3 Corpuscular g/dl (32.0-37. Hemoglobin Conc 0) ent Red Cell 16.7 Distribution % (11.5-14.5) Width Platelet Count 199 10^3/UL (140-4 15) Mean Platelet 9.8 Volume fl (7.4-10.4) Immature 1.000 Granulocytes % % (0.001-0.429 ) Neutrophils % 74.3 % (39.0-77.0) Lymphocytes % 14.4 % (15.0-51.0) Monocytes % 7.4 % (0.0-11.0) Eosinophils % 2.4 % (0.0-7.0) Basophils % 0.5 % (0.0-2.0) Nucleated Red 0.0 Blood Cells % /100WBC (0.0-0 .0) Immature 0.090 Granulocytes # 10^3/ul (0.0-0 .031) Neutrophils # 6.4 10^3/ul (1.6-7 .5) Lymphocytes # 1.2 10^3/ul (0.8-2 .9) Monocytes # 0.6 10^3/ul (0.3-0 .9) Eosinophils # 0.2 10^3/ul (0.0-0 .5) Basophils # 0.0 10^3/ul (0.0-0 .1) Nucleated Red 0.0 Blood Cells # 10^3/ul (0.0-0 .0) Sodium Level 138 mmol/L (135-14 4) Potassium 3.6 Level mmol/L (3.5-5. 1) Chloride Level 85 mmol/L (97-110 ) Carbon Dioxide 43 Level mmol/L (21-31) Anion Gap 10 (5-13) Blood Urea 22 Nitrogen mg/dl (7-20) Creatinine 0.70 mg/dl (0.44-1. 00) Est Glomerular > 60 Filtrat mL/min (>60) Rate mL/min Glucose Level 194 mg/dl (70-220) Calcium Level 8.7 mg/dl (8.4-10. 2) Phosphorus 3.4 Level mg/dl (2.5-4.9 ) Magnesium 2.0 Level mg/dl (1.7-2.5 ) Test 03/30/18 08:04 03/30/18 11:58 Bedside 206 245 Glucose mg/dL (70-220) mg/dL (70-220) BERE NEVILLE MD Mar 30, 2018 16:39
[2018-03-30] MEDS ORDERED: BUMETANIDE 1 MG TAB PO SCH (18:00)
[2018-04-17] MEDS ORDERED: GLIM4TAB PO (06:03)
[2018-04-17] MEDS ORDERED: SENN-120 PO (06:03)
[2018-04-17] MEDS ORDERED: THIA100T56 PO (06:03)
[2018-04-17] MEDS ORDERED: EMPA10TA PO (06:03)
[2018-04-17] MEDS ORDERED: ALBU18HF INHALATION (06:03)
[2018-04-19] MEDS ORDERED: PULM90 INHALATION (11:51)
[2018-04-19] MEDS ORDERED: LINA5TAB PO (11:51)
[2018-04-19] MEDS ORDERED: BROVANA NEB (11:51)
== END 2018-03-30 16:30 | disposition home or self-care (01) | DRG 193 ==
LOC: E/R 17:13 → ICU 19:37 → 6WM 03-26 13:40
PROVIDERS: ADMIT Internal Medicine; ATTEND Internal Medicine
PROC: 5A09357 Assistance with Respiratory Ventilation, Less than 24 Consecutive Hours, Continuous Positive Airway Pressure (ICD-10-PCS; principal; 2018-03-24)
DX: J18.1 Lobar pneumonia, unspecified organism (principal); J96.21 Acute and chronic respiratory failure with hypoxia; I50.33 Acute on chronic diastolic (congestive) heart failure; J96.22 Acute and chronic respiratory failure with hypercapnia; J44.1 Chronic obstructive pulmonary disease with (acute) exacerbation; Z68.43 Body mass index [BMI] 50.0-59.9, adult; J44.0 Chronic obstructive pulmonary disease with (acute) lower respiratory infection; E66.2 Morbid (severe) obesity with alveolar hypoventilation; E11.65 Type 2 diabetes mellitus with hyperglycemia; I11.0 Hypertensive heart disease with heart failure; E78.5 Hyperlipidemia, unspecified; I48.2 Chronic atrial fibrillation; I27.20 Pulmonary hypertension, unspecified; Z79.01 Long term (current) use of anticoagulants
CPT/HCPCS: 36415; 71045; 80048; 80053; 82803; 82962; 83036; 83605; 83735; 83880; 84100; 84484; 85025; 85378; 85610; 85730; 87040; 87081; 93005; 93970; 94644; 94660; 94664; 96374; 96375; 97116; 97161; 97166; 97530; J0692; J1100; J1815; J1956; J2060; J7030